=== PATIENT | male | born 1960 | race Caucasian/White ===

== ENCOUNTER 2017-04-27 16:57 | Emergency (ER) | payer OTHER ==
[2017-04-27] MEDS ORDERED: Oxymetazoline 0.05% NASAL SPR* 15 ML BTL BOTH NARES ONE (18:09)
[2017-04-27 18:39] VITALS: BP 165/81
[2017-04-27 19:43] LABS: ABS Basophils 0 10^3/ul (0-0.2); ABS Eosinophils 0.1 10^3/ul (0-0.6); ABS Lymphocytes 1.3 10^3/ul (1.0-4.8); ABS Monocytes 0.8 10^3/ul (0-0.8); ABS Neutrophils 4.2 10^3/ul (1.5-7.7); ABS Nucleated RBC 0 10^3/ul; Eosinophil % 1.4 % (0-6); Hematocrit 36 % (42-52); Hemoglobin 12.4 g/dl (14.0-18.0); Mean Corpuscular HGB Conc 35 g/dl (31-36); Mean Corpuscular Hemoglobin 33 pg (27-31); Mean Corpuscular Volume 94 fL (80-94); Mean Platelet Volume 8 um3 (7.4-10.4); Nucleated Red Blood Cells % 0; Platelet Count 134 10^3/ul (150-450); Red Blood Count 3.81 10^6/ul (4.0-5.4); Red Cell Distribution Width 15 % (10.5-15); White Blood Count 6.5 10^3/ul (3.5-10.8)
[2017-04-27 19:52] LABS: INR 0.94 (0.77-1.02)
[2017-04-27] MEDS ORDERED: Lidocaine 2% JELLY* 6 ML JELLY TOPICAL ONE (19:57)
[2017-04-27] MEDS ORDERED: Lidocaine 2% JELLY* 10 ML JELLY TOPICAL ONE (19:58)
[2017-04-27 20:00] LABS: EGFR Non-African American 99.6 (>60)
[2017-04-27] MEDS ORDERED: Amoxicillin PO (*) 875 MG TAB PO ONE (20:13)
--- NOTE | 2017-04-27 20:27 | ED ---
Throat Pain/Nasal Congestion - HPI Summary HPI Summary: Pt here w/ nose bleed last night. "Bed looked like I lost a gallon of blood". Tried pinching his nose but continued to bleed. Was able to push a tampon up his nose prior to coming in today - still bleeding down back of throat. Denies bleeding d/o or h/o trauma to nose. He does admit he turned his base board heat on last night and he takes daily ibuprofen. Also smokes and has had URI with rhinorrhea - was shoving papertowels up his nose all day yesterday to help with rhinorrhea. No h/o epistaxis and reports no other areas of bleeding or bruising recently. Does admit to HTN and takes HCTZ and metoprolol. BP was 120/80 [facility] earlier today - elevated here he suspects from anxiety, frustration as he just paid $ 145 at [facility] and they did "nothing" and dealing with blood going down his throat, tired from not sleeping well last night. Repeat BP improved here to 160's/80's and he is asx. NOTE: was recently diagnosed with lung tumor which is suspected to be malignant. Due for bx soon. Denies chest john, SOB, hemoptysis. - History of Current Complaint Chief Complaint: EDEpistaxis Time Seen by Provider: 04/27/17 17:15 Hx Obtained From: Patient - Allergies/Home Medications Allergies/Adverse Reactions: Allergies Allergy/AdvReac Type Severity Reaction Status Date / Time lisinopril Allergy Swelling Verified 04/27/17 19:48 Of Face,Lips,& Throat PMH/Surg Hx/FS Hx/Imm Hx Previously Healthy: Yes Endocrine/Hematology History: Denies: Hx Anticoagulant Therapy, Hx Blood Disorders, Hx Diabetes Cardiovascular History: Reports: Hx Hypertension - ON MEDS Denies: Hx Pacemaker/ICD History: Denies: Hx Renal Disease Musculoskeletal History: Reports: Hx Back Problems Sensory History: Denies: Hx Hearing Aid Psychiatric History: Denies: Hx Panic Disorder Infectious Disease History: No Infectious Disease History: Reports: Hx Hepatitis Denies: Traveled Outside the [place] in Last 30 Days - Family History Known Family History: Positive: None - Social History Occupation: Employed Full-time Lives: Alone Alcohol Use: Daily Alcohol Amount: 6 beers a day Hx Substance Use: Yes Substance Use Type: Reports: Marijuana Substance Use Comment - Amount & Last Used: unknown Hx Tobacco Use: Yes Smoking Status (MU): Heavy Every Day Tobacco Smoker Type: Cigarettes Have You Smoked in the Last Year: Yes Review of Systems Constitutional: Negative Positive: Epistaxis. Negative: Sore Throat, Ear Ache Cardiovascular: Negative Negative: Palpitations, Chest Pain Respiratory: Negative Negative: Shortness Of Breath Gastrointestinal: Negative Positive: no symptoms reported Musculoskeletal: Negative Skin: Negative Neurological: Negative Positive: Anxious All Other Systems Reviewed And Are Negative: Yes Physical Exam Triage Information Reviewed: Yes Vital Signs On Initial Exam: Initial Vitals Temp Pulse Resp BP Pulse Ox 98.1 F 62 20 191/89 100 04/27/17 16:59 04/27/17 16:59 04/27/17 16:59 04/27/17 16:59 04/27/17 16:59 Vital Signs Reviewed: Yes Appearance: Positive: Well-Appearing - appars older than stated age, No Pain Distress - frustrated but cooperative, Well-Nourished Skin: Positive: Warm, Skin Color Reflects Adequate Perfusion, Dry Head/Face: Positive: Normal Head/Face Inspection - sinuses NTTP Eyes: Positive: Normal, EOMI - no blood from eyes, Conjunctiva Clear. Negative : Conjunctiva Inflammed, Discharge ENT: Positive: Hearing grossly normal, Nasal drainage - bloody nasal d/c - clot removed when tampon removed - no bleeding initially but then bleeding started, TMs normal - no hemotympanum. Negative: Pharynx normal - blood in posterior pharynx Neck: Positive: Supple, Nontender Respiratory/Lung Sounds: Positive: Clear to Auscultation, Breath Sounds Present. Negative: Stridor Cardiovascular: Positive: Normal, S1, S2 Musculoskeletal: Positive: Normal, Strength/ROM Intact Neurological: Positive: Normal, Sensory/Motor Intact, Alert, Oriented to Person Place, Time, CN Intact II-III Psychiatric: Positive: Normal Procedures - Procedure Summary Procedure Summary: Pt's nasal tampon removed - clot followed but no bleeding. An Afrin swab was placed and upon recheck, pt's nose started bleeding. No vessel is visible for cauterization and no olive area of laceration/abrasion/lesion. Placed lidocaine jelly into pt's nose then posterior rhinorocket. Pt tolerated well and bleeding from anterior and posterior aspects resolved. Pt tolerated well. Diagnostics - Vital Signs Vital Signs Temp Pulse Resp BP Pulse Ox 04/27/17 18:38 165/81 04/27/17 16:59 98.1 F 62 20 191/89 100 - Laboratory Lab Results: Lab Results 04/27/17 04/27/17 04/27/17 Range/Units 19:33 19:33 19:33 WBC 6.5 (3.5-10.8) 10^3/ul RBC 3.81 L (4.0-5.4) 10^6/ul Hgb 12.4 L (14.0-18.0) g/dl Hct 36 L (42-52) % MCV 94 (80-94) fL MCH 33 H (27-31) pg MCHC 35 (31-36) g/dl RDW 15 (10.5-15) % Plt Count 134 L (150-450) 10^3/ul MPV 8 (7.4-10.4) um3 Neut % (Auto) 65.1 (38-83) % Lymph % (Auto) 20.0 L (25-47) % Cobb % (Auto) 12.8 H (1-9) % Eos % (Auto) 1.4 (0-6) % Baso % (Auto) 0.7 (0-2) % Absolute Neuts (auto) 4.2 (1.5-7.7) 10^3/ul Absolute Lymphs (auto) 1.3 (1.0-4.8) 10^3/ul Absolute Monos (auto) 0.8 (0-0.8) 10^3/ul Absolute Eos (auto) 0.1 (0-0.6) 10^3/ul Absolute Basos (auto) 0 (0-0.2) 10^3/ul Absolute Nucleated RBC 0 10^3/ul Nucleated RBC % 0 INR (Anticoag Therapy) 0.94 (0.77-1.02) APTT 32.8 (26.0-36.3) seconds Sodium 131 L (133-145) mmol/L Potassium 3.8 (3.5-5.0) mmol/L Chloride 99 L (101-111) mmol/L Carbon Dioxide 26 (22-32) mmol/L Anion Gap 6 (2-11) mmol/L BUN 16 (6-24) mg/dL Creatinine 0.80 (0.67-1.17) mg/dL Est GFR ( Amer) 128.1 (>60) Est GFR (Non-Af Amer) 99.6 (>60) BUN/Creatinine Ratio 20.0 (8-20) Glucose 104 H (70-100) mg/dL Lactic Acid (0.5-2.0) mmol/L Calcium 10.3 (8.6-10.3) mg/dL Total Bilirubin 0.90 (0.2-1.0) mg/dL AST 53 H (13-39) U/L ALT 31 (7-52) U/L Alkaline Phosphatase 68 (34-104) U/L C-Reactive Protein 1.15 (< 5.00) mg/L Total Protein 8.0 (6.4-8.9) g/dL Albumin 3.7 (3.2-5.2) g/dL Globulin 4.3 H (2-4) g/dL Albumin/Globulin Ratio 0.9 L (1-3) 04/27/17 Range/Units 19:33 WBC (3.5-10.8) 10^3/ul RBC (4.0-5.4) 10^6/ul Hgb (14.0-18.0) g/dl Hct (42-52) % MCV (80-94) fL MCH (27-31) pg MCHC (31-36) g/dl RDW (10.5-15) % Plt Count (150-450) 10^3/ul MPV (7.4-10.4) um3 Neut % (Auto) (38-83) % Lymph % (Auto) (25-47) % Cobb % (Auto) (1-9) % Eos % (Auto) (0-6) % Baso % (Auto) (0-2) % Absolute Neuts (auto) (1.5-7.7) 10^3/ul Absolute Lymphs (auto) (1.0-4.8) 10^3/ul Absolute Monos (auto) (0-0.8) 10^3/ul Absolute Eos (auto) (0-0.6) 10^3/ul Absolute Basos (auto) (0-0.2) 10^3/ul Absolute Nucleated RBC 10^3/ul Nucleated RBC % INR (Anticoag Therapy) (0.77-1.02) APTT (26.0-36.3) seconds Sodium (133-145) mmol/L Potassium (3.5-5.0) mmol/L Chloride (101-111) mmol/L Carbon Dioxide (22-32) mmol/L Anion Gap (2-11) mmol/L BUN (6-24) mg/dL Creatinine (0.67-1.17) mg/dL Est GFR ( Amer) (>60) Est GFR (Non-Af Amer) (>60) BUN/Creatinine Ratio (8-20) Glucose (70-100) mg/dL Lactic Acid 0.7 (0.5-2.0) mmol/L Calcium (8.6-10.3) mg/dL Total Bilirubin (0.2-1.0) mg/dL AST (13-39) U/L ALT (7-52) U/L Alkaline Phosphatase (34-104) U/L C-Reactive Protein (< 5.00) mg/L Total Protein (6.4-8.9) g/dL Albumin (3.2-5.2) g/dL Globulin (2-4) g/dL Albumin/Globulin Ratio (1-3) Result Diagrams: 04/27/17 19:33 04/27/17 19:33 Lab Statement: Any lab studies that have been ordered have been reviewed, and results considered in the medical decision making process. Re-Evaluation - Re-Evaluation First Eval Change: Improved EENT Course/Dx - Course Course Of Treatment: Suspect posterior vessel injury causing epistaxis. Controlled w/ rhinorocket and pt d/c'd w/ anbx. He has norco at home he will take for pain with tamponade placed. Advised to avoid NSAID's until cleared by ENT. He has an appt at ENT at 9am tomorrow. Danger s/sx of when to return to ED reviewed here - pt agrees w/ plan. NOTE: platelets are below normal (134) but not in a place to trigger spontaneous bleeding. - Diagnoses Provider Diagnoses: Right-sided epistaxis Discharge - Discharge Plan Condition: Stable Disposition: HOME Prescriptions: Amoxicillin PO (*) [Amoxicillin 875 MG (*)] 875 mg PO BID #19 tab Patient Education Materials: Nosebleed (ED) Forms: *Work Release Referrals: Carlin Stockton MD [Medical Doctor] - Additional Instructions: You appear to have a posterior nose bleed. This was controlled today with a rhinorocket, a device designed to tamponade/clamp off bleeding vessel(s). If you bloody nose or bleeding down the back of your throat return before follow- up with ENT tomorrow, return to the ED. When you get home, you may take your pain medication for pain however avoid ibuprofen, naproxen, aspirin until nasal bleeding is confirmed to be rectified by ENT. Call in the morning to schedule an appointment for tomorrow. You were also given an antibiotic - complete the course. *If you develop fever, chills, vomiting, headache, weakness, or bleeding from other locations, return to ED
== END 2017-04-27 20:47 | disposition home or self-care (01) ==
LOC: ED 16:57
DX: R04.0 Epistaxis (principal); I10 Essential (primary) hypertension; F17.210 Nicotine dependence, cigarettes, uncomplicated
CPT/HCPCS: 36415; 80053; 83605; 85025; 85610; 85730; 86140; 99282; A9270-GY

== ENCOUNTER 2018-01-04 12:53 | Day surgery (SDC) | payer OTHER ==
[2018-01-04] MEDS ORDERED: Lidocaine 2% PF * 5 ML VIAL ONE (13:00)
[2018-01-04] MEDS ORDERED: fentaNYL* 50 MCG/ML 2 ML VIAL (100 MCG VIAL) ONE (13:00)
[2018-01-04] MEDS ORDERED: Dexamethasone IV* 4 MG/ML 1 ML (4 MG) ONE (13:00)
[2018-01-04] MEDS ORDERED: Ondansetron INJ* 2 MG/ML VIAL ONE (13:00)
[2018-01-04] MEDS ORDERED: Propofol* 10 MG/ML 20 ML BTL IV PUSH ONE (13:00)
[2018-01-04] MEDS ORDERED: Midazolam* 1 MG/ML 5 ML VIAL (5 MG) ONE (13:01)
[2018-01-04] MEDS ORDERED: Cisatracurium* 2 MG/ML MDV 5 ML ONE (13:01)
[2018-01-04] MEDS ORDERED: Buffered Lidocaine 0.9% SYRIN* 5 ML/SYR SYRINGE INTRADERM ONE (13:47)
[2018-01-04] MEDS ORDERED: Famotidine IV* 10 MG/ML 2 ML (20 mg) IV ONE (13:47)
[2018-01-04] MEDS ORDERED: Levalbuterol 0.63MG/3ML NEB* UNIT OF USE INH ONE ×2 (13:47→13:51)
[2018-01-04] MEDS ORDERED: Famotidine IV* 10 MG/ML 2 ML (20 mg) ONE (13:51)
[2018-01-04] MEDS ORDERED: EPHEDrine (Pressors)* 50 MG/ML VIAL ONE (14:33)
[2018-01-04] MEDS ORDERED: oxyCODONE/Acetamin 5/325 MG* TAB PO PRN (15:37)
[2018-01-04] MEDS ORDERED: fentaNYL* 50 MCG/ML 2 ML VIAL (100 MCG VIAL) IV PRN (15:37)
[2018-01-04] MEDS ORDERED: Levalbuterol 0.63MG/3ML NEB* UNIT OF USE INH PRN (15:37)
[2018-01-04] MEDS ORDERED: Ondansetron INJ* 2 MG/ML VIAL IV PRN (15:37)
[2018-01-04] MEDS ORDERED: Naloxone* 0.4 MG/ML 1 ML VIAL IV PRN (15:37)
[2018-01-04 16:57] VITALS: BP 154/79
--- NOTE | 2018-01-05 09:08 | PRO ---
BRONCHOSCOPY REPORT: DATE OF PROCEDURE: 01/04/18 PROCEDURE PERFORMED: Bronchoscopy with endobronchial ultrasound-guided fine needle aspiration of mediastinal and hilar nodes. PREPROCEDURAL DIAGNOSIS: Lung cancer. ANESTHESIA: General anesthesia. ANESTHESIOLOGIST: Dr. Perry. DESCRIPTION OF PROCEDURE: Informed consent was obtained from the patient prior to the procedure after all the risks and benefits were thoroughly explained. A flexible Olympus bronchoscope was inserted through ET tube for airway inspection. Thick white secretions were noted in copious amounts on both sides which were suctioned out. No endobronchial lesions were noted. Bronchoscope was then withdrawn and EBUS bronchoscope was inserted. Station 7 lymph node was accessed with 2 passes. Rapid on-site evaluation revealed lymphatic tissue. No malignant cells were noted. L4 lymph node was minimally enlarged and was accessed with 2 passes. Rapid on-site evaluation revealed lymphatic tissue. No malignant cells were noted. Left hilar nodes were not enlarged. R 4 lymph node was then accessed with 3 passes. Rapid on-site evaluation revealed lymphatic tissue in the third pass. R10 was accessed with 2 passes. Rapid on-site evaluation revealed lymphatic tissue on the second pass. No other lymph nodes were enlarged enough to be sampled. The patient tolerated the procedure well. Bronchoscope was then withdrawn. The patient was extubated and seen in Recovery in optimal condition. [id number]/[facility] #: [id number] [facility]
== END 2018-01-04 16:58 | disposition home or self-care (01) ==
LOC: OR 12:53
PROVIDERS: ATTEND Internal Medicine
DX: C34.11 Malignant neoplasm of upper lobe, right bronchus or lung (principal); Z72.0 Tobacco use; I10 Essential (primary) hypertension; E87.1 Hypo-osmolality and hyponatremia
CPT/HCPCS: 88172; 88173; 88177; 88305; J1100; J2250; J2405; J2704; J3010

== ENCOUNTER 2018-01-20 10:14 | Inpatient (IN) | payer OTHER ==
--- NOTE | 2018-01-18 16:10 | HP ---
AMENDED REPORT NOW INCLUDES COSIGNER DESIGNATION CC: Dr. Gold; Miguel Ángel Jones NP * DATE OF ADMISSION: 01/20/2018. This patient is scheduled for AA admission by Dr. Busby. DATE OF PREOPERATIVE HISTORY AND PHYSICAL EXAMINATION: Thursday, January 18, 2018. ATTENDING SURGEON: Dr. Ceasar Busby * (dictated by Shauna Jacobson NP). CHIEF COMPLAINT: Right lung cancer. HISTORY OF PRESENT ILLNESS: The patient is a 57-year-old male, a current smoker with a history of hypertension. On 12/01/2016, he fell off a rut while climbing and sustained a fractured pelvis and five ribs; he also had left- sided pneumothorax and ruptured spleen. He was airlifted to [facility]. The ruptured spleen was repaired. He had chest tube placement for pneumothorax and was noted to have an abnormality on the CT of his chest at that time. CT scan from 02/21/2017 revealed a 1.7 cm spiculated nodule at the right upper lobe suspicious for neoplasm. He underwent CT guided biopsy in April 2017, positive for moderately differentiated adenocarcinoma. He had a recent PET scan which showed an isolated lesion in the right upper lobe without any evidence of metastatic disease. He has seen Dr. Carter. He saw Dr. Gold and had pulmonary function testing and also had an endobronchial ultrasound which did not reveal any evidence of metastatic disease. The patient has been a smoker for many years; he currently admits to smoking two cigarettes per day. 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 He stays active and feels like he is finally recovered from his major trauma. He reports a mild intermittent cough and denies any hemoptysis. Dr. Busby examined the patient and discussed the above findings with him and reviewed all of his diagnostic testing. Dr. Busby has recommended right lung upper lobectomy and described the nature of the surgical procedure, the relevant risks and benefits, the use of a chest tube, and today I reviewed the typical postoperative hospitalization and recovery. The patient has had a chance to ask questions and stated that he understands the information and is satisfied with the answers given to his questions. He will sign surgical consent on the day of surgery. PAST MEDICAL HISTORY: Hypertension, hepatitis, smoking, alcohol abuse, trauma with fractured pelvis and five ribs, left-sided pneumothorax and ruptured spleen. PAST SURGICAL HISTORY: Repair of splenic laceration, hip arthroscopy and endobronchial ultrasound. MEDICATIONS: 1. Gabapentin 300 mg p.o. t.i.d. 2. Metoprolol ER 100 mg p.o. daily. 3. Triamterene/Hydrochlorothiazide 37.5/25 mg one capsule p.o. daily. ALLERGIES: LISINOPRIL CAUSED SWOLLEN TONGUE. FAMILY HISTORY: Father alive and well at age 90. Mother alive and well at age 89. He has six siblings, all alive and well. No known anesthesia complications , bleeding tendencies, or clotting disorders. SOCIAL HISTORY: He is single. 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 He currently is smoking two cigarettes per day. He drinks a six pack of beer daily. I advised him today to significantly decrease his alcohol intake over the next 48 hours and to avoid alcohol completely if possible. REVIEW OF SYSTEMS: Constitutional: No fevers or chills. He is able to work as a filler blender and denies any excessive fatigue. He states that he lost 10 pounds over the past year. He denies anorexia. Endocrine: No diabetes or known thyroid disease. Hematologic: No easy bruising or bleeding. He is pretty sure that he received blood transfusions at the time of the trauma in November 2016. Respiratory: He is a smoker. He denies any sputum production or hemoptysis. He has a mild intermittent cough. He has a history of pneumothorax, status post trauma and rib fracture. Cardiovascular: No anginal chest pain or palpitations. Gastrointestinal: No nausea, vomiting, diarrhea, GI bleeding, or constipation. Genitourinary: No dysuria. Musculoskeletal: Reports muscle aches, but denies any ambulatory dysfunction. Neurologic: No headache or blurred vision. No areas of focal weakness or numbness. General: No history of anesthesia complications. No history of deep vein thrombosis or pulmonary embolism. PHYSICAL EXAMINATION GENERAL: The patient is a 57-year-old male, well-developed, in no acute distress. VITAL SIGNS: Height 70.5 inches, weight 143 pounds, body mass index 20.2. Blood pressure 144/86, pulse 60 and regular, respiratory rate 18, temperature 98.6. SKIN: Warm, dry, intact. HEENT: Benign. NECK: Supple. No cervical lymphadenopathy. Trachea is midline. BACK: No CVA tenderness. LUNGS: Clear anteriorly; a few scattered rhonchi posteriorly, right greater than left. No wheezing, no use of accessory muscles. HEART: Regular rate and rhythm. No murmurs or rubs appreciated. ABDOMEN: Active bowel sounds. Soft, nondistended, and nontender throughout. The liver is enlarged. EXTREMITIES: Warm without edema or skin ulcerations. GENITALIA: Exam deferred. RECTAL: Exam deferred. NEUROLOGIC: Alert and oriented times three, steady gait. IMPRESSION: Right lung cancer. PLAN: AA admission to Dr. Busby's service on Tuesday, January 20, 2018 for right lung upper lobectomy. JESSICA JACOBSON, KYLE [id number]/[facility] #: [id number] [place]
[~2018-01-20 10:14] MED LIST: DiMENhydriNATE IV* 50 MG/ML VIAL IV PUSH PRN; KETAMINE HCL* 50 MG/ML 10 ML VIAL ONE; Midazolam* 1 MG/ML 10 ML VIAL (10 MG) ONE; Naloxone* 0.4 MG/ML 1 ML VIAL IV PRN; PROCHLORPERAZINE INJ 5 MG/ML 2 ML VIAL IV PRN; Scopolamine 1.5 mg* PATCH TRANSDERM PRN; fentaNYL* 50 MCG/ML 5 ML VIAL (250 MCG VIAL) ONE
[2018-01-20] MEDS ORDERED: Phenylephrine INJ* 10 MG/ML 1 ML VIAL (10 MG) ONE (10:17)
[2018-01-20] MEDS ORDERED: Succinylcholine* 20 MG/ML 10 ML VIAL ONE (10:17)
[2018-01-20] MEDS ORDERED: EPHEDrine (Pressors)* 50 MG/ML VIAL ONE (10:17)
[2018-01-20] MEDS ORDERED: Lidocaine 2% PF * 5 ML VIAL ONE ×3 (10:17→15:32)
[2018-01-20] MEDS ORDERED: Propofol* 10 MG/ML 20 ML BTL IV PUSH ONE (10:17)
--- OUTSIDE RECORDS SUMMARY | 2018-01-20 10:17 | XMS REPORT | Continuity of Care Document ---
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 PayID: [id number] [place] [address] Onset: 2016 Policy Number: [id number] [employer] Juan J Alcaraz PayID: [id number] [address] [place] [address] Advance Directives Description No Information Available Problems Date Description Provider Status Onset: 10/04/2012 Chronic hepatitis C Rola Feliciano M.D. 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 [employer] Tobacco Use Start: Unknown current cigarette smoker 3-4 rollies daily ETOH Use Consumes 1 six pack of beer per day Recreational Drug Use Sporadically uses Marijuana Enjoy Exercising Enjoys exercising Allergies, Adverse Reactions, Alerts Date Description Reaction Status Severity Comments 07/22/2015 Lisinopril Anaphylaxis, Active angioedema 01/28/2010 NKDA Inactive Medications Medication Date Status Form Strength Qnty SIG Indications Ordering Provider Triamterene/Hydr 09/21 Active Capsules 37.5-25mg 90cap 1 by I10 Miguel Ángel Calhoun ochlorothiazide /2017 s mouth Storm, every day [employer] Viagra 07/11 Active Tablets 100mg 10tab take 1/2 Williewnti R. /2017 s to 1 Storm, tablet by [employer] mouth 30 minutes before intercour se Metoprolol 12/15 Active Tablets 100mg 90tab 1 by Miguel Ángel Calhoun Succinate ER /2016 ER 24HR s mouth Storm, every day [employer] Hydrocodone-Acet 12/21 Active Tablets 7.5-325mg 90tab 1-2 tabs M54.5 Miguel Ángel Calhoun aminophen s by mouth Storm, every 6 [employer] hours as needed pain Gabapentin 10/04 Active Capsules 300mg 90cap Take One M54.10 Williewnti R. /2014 s Capsule Storm, By Mouth [employer] Three Times A Day For Nerve Pain Valium 04/14 Hx Tablets 5mg 2tabs 1 by Williewnti R. /2017 mouth 30 Storm, - minutes [employer] 11/25 prior to PET scan, may repeat after 30 minutes if needed T.E.D. 01/06 Hx Misc Regular, 2Pair low R60.9 Miguel Ángel Calhoun Anti-Embolism Medium compressi Storm, Stockings Knee - on, wear [employer] Length 03/24 daily Trazodone HCL 01/06 Hx Tablets 50mg 30tab take 1 G47.00 Williewnti R. s tablet by Robert, - mouth at [employer] 03/24 bedtime if needed for sleep Atenolol 11/05 Hx Tablets 50mg 45tab 1/2 tab I10 Williewnti R. s by mouth Storm, - every day [employer] 03/24 Crutch 07/29 Hx Misc Pair of M25.561 Sukhi crutches He[place]derks, - for acute MD 03/24 knee injury. sized to fit. Ibuprofen 12/21 Hx Tablets 800mg 60tab Take One M25.552 Williewnti R. s Tablet By Robert, - Mouth [employer] 11/25 Every Hours With Food as Needed For Pain Sulfamethoxazole 09/08 Hx Tablets 800-160mg 20tab 1 by L03.115 Sukhi /Trimethoprim s mouth Heetjameel, - twice a MD 04/22 day for infection T.E.D. 09/08 Hx Misc Medium 2unit wear on L03.115 Shawnti R. Anti-Embolism Compression s right leg Robert, Stockings Knee - daily [employer] Length 01/06 Cephalexin 09/01 Hx Tablets 500mg 30tab 1 by Shawnti R. /2015 s mouth Robert, - three [employer] 09/11 times day for 10 days for infection Hydrochlorothiaz 09/01 Hx Capsules 12.5mg 90cap take one I10 Shawnti R. cathryn s capsule Robert, - by mouth [employer] 11/25 every for blood pressure Atenolol 08/11 Hx Tablets 25mg 30tab Take One I10 Shawnti R. s Tablet By Robert, - Mouth [employer] 11/05 Every For Blood Pressure, Replaces Amlodipin e Amlodipine 07/21 Hx Tablets 5mg 30tab take one I10 Shawnti R. Besylate s tablet by Robert, - mouth [employer] 08/11 every for blood pressure Hydrocodone-Acet 10/04 Hx Tablets 5-325mg 60tab 1 or 2 by M54.5 Williewnti R. aminophen s mouth Robert, - twice a [employer] 12/21 day needed for severe pain Ibuprofen 10/04 Hx Tablets 800mg 90tab take one M54.5 Shawnti R. /2014 s tablet by Robert, - mouth [employer] 07/21 times a day as needed for pain Diclofenac 02/25 Hx Tablets 100mg 30tab Take One 724.5 Shawnti R. Sodium ER /2013 ER 24HR s Tablet By Robert, - Mouth [employer] 07/21 Every For Arthritis Lisinopril-Meridian 01/29 Hx Tablets 20-25mg 90tab Take One I10 Shawnti R. chlorothiazide s Tablet By Robert, - Mouth [employer] 07/21 Every Day For Blood Pressure No Active 01/10 Hx Unknown Medications /2013 - 01/10 Lisinopril-Meridian 01/10 Hx Tablets 10-12.5mg 30tab 1 by 401.9 Miguel Ángel Calhoun chlorothiazide /2013 s mouth Storm, - every day [employer] 01/29 for blood 2014 pressure Bentyl 10/04 Hx Tablets 20mg 30tab take one 789.04 Rola s every 6 MJessika Feliciano, - hours as M.D. 01/10 neeed abdominal cramping Omeprazole 09/29 Hx Capsules 20mg 30cap [address] galen Sahu, - [employer] 01/10 Amoxicillin 09/27 Hx Tablets 500mg 42tab take 1 789.9 s tablet po Luis Alberto, - tid x 14 [employer] Oxycodone HCL 09/27 Hx Tablets 5mg 20twe 1 tab po 789.9 nty q 4- 6 Luis Alberto, - hours prn [employer] 01/10 severe pain Ondansetron Odt 09/26 Hx Tablets 4mg 10tab 1 tablet Dispers s dissolved Luis Alberto, - on tongue [employer] 01/10 tid prn nausea No Active 09/08 Hx Unknown Medications /2012 - 09/08 Doxycycline 09/08 Hx Tablets 100mg 42tab 1 po bid 088.81 Miguel Ángel Calhoun Hyclate /2012 DR aaron for 21 Storm, - days for [employer] 10/08 lyme disease Biaxin 08/04 Hx Tablets 500mg 20tab 1 po bid 461.8 Miguel Ángel Calhoun /2010 s for 10 Storm, - days for [employer] 09/08 sinusitis Immunizations CPT Code Status Date Vaccine Lot # [id number] Refused 07/29/2016 Influenza Virus Vaccine, Quadrivalent, 3 Yr > Quad , Preserv Free Vital Signs Date Vital Result Comment 01/03/2018 2:48pm Weight 145.00 lb Weight 65.772 kg BP Systolic 140 mmHg BP Diastolic 80 mmHg Heart Rate 60 /min Body Temperature 98.8 F Respiratory Rate 16 /min Height 70 inches 5'10" BMI (Body Mass Index) 20.8 kg/m2 O2 % BldC Oximetry 98 % 11/25/2017 11:35am Weight 152.00 lb Weight 68.947 kg BP Systolic 170 mmHg BP Diastolic 80 mmHg Heart Rate 74 /min Body Temperature 97.7 F Respiratory Rate 16 /min O2 % BldC Oximetry 97 % 03/24/2017 2:45pm Weight 154.00 lb Weight 69.854 kg BP Systolic 188 mmHg BP Diastolic 84 mmHg Heart Rate 60 /min Respiratory Rate 18 /min O2 % BldC Oximetry 98 % 01/06/2017 10:12am Weight 159.00 lb Weight 72.122 kg BP Systolic 140 mmHg BP Diastolic 70 mmHg Heart Rate 72 /min Body Temperature 98.2 F O2 % BldC Oximetry 98 % 08/20/2016 3:12pm Weight 151.00 lb Weight 68.494 kg BP Systolic 120 mmHg BP Diastolic 78 mmHg Heart Rate 58 /min Body Temperature 98.0 F Respiratory Rate 14 /min 07/29/2016 2:56pm Weight 152.00 lb Weight 68.947 kg BP Systolic 142 mmHg BP Diastolic 70 mmHg Heart Rate 64 /min Body Temperature 98.8 F Respiratory Rate 18 /min Height 71 inches 5'11" BMI (Body Mass Index) 21.2 kg/m2 04/22/2016 3:45pm Weight 152.00 lb Weight 68.947 kg BP Systolic 160 mmHg BP Diastolic 80 mmHg Heart Rate 62 /min Body Temperature 98.0 F Respiratory Rate 16 /min O2 % BldC Oximetry 97 % 12/22/2015 3:47pm Weight 155.00 lb Weight 70.308 kg BP Systolic 138 mmHg BP Diastolic 78 mmHg Heart Rate 63 /min Body Temperature 99.5 F Respiratory Rate 16 /min O2 % BldC Oximetry 98 % 09/16/2015 3:17pm Weight 157.00 lb Weight 71.215 kg BP Systolic 120 mmHg BP Diastolic 70 mmHg Heart Rate 66 /min 09/09/2015 3:13pm Weight 158.00 lb Weight 71.669 kg BP Systolic 130 mmHg BP Diastolic 80 mmHg Heart Rate 85 /min Body Temperature 98.9 F 09/02/2015 3:09pm Weight 159.00 lb Weight 72.122 kg BP Systolic 152 mmHg BP Diastolic 80 mmHg Heart Rate 64 /min Body Temperature 100.3 F 08/12/2015 3:18pm Weight 153.00 lb Weight 69.401 kg BP Systolic 152 mmHg BP Diastolic 80 mmHg Heart Rate 68 /min 07/22/2015 3:10pm Weight 150.00 lb Weight 68.040 kg BP Systolic 150 mmHg BP Diastolic 81 mmHg Heart Rate 80 /min 10/04/2014 2:09pm Weight 148.00 lb Weight 67.133 kg BP Systolic 136 mmHg BP Diastolic 80 mmHg Heart Rate 80 /min Body Temperature 99.3 F Ibuprofen consistantly all day every day 02/25/2014 3:11pm Weight 150.00 lb Weight 68.040 kg BP Systolic 126 mmHg BP Diastolic 70 mmHg Heart Rate 76 /min 01/29/2014 9:20am Weight 150.00 lb Weight 68.040 kg BP Systolic 140 mmHg BP Diastolic 90 mmHg Heart Rate 76 /min 01/10/2014 4:38pm Weight 155.00 lb Weight 70.308 kg BP Systolic 170 mmHg BP Diastolic 90 mmHg Heart Rate 72 /min 10/04/2012 9:18am Weight 159.00 lb Weight 72.122 kg BP Systolic 100 mmHg BP Diastolic 62 mmHg Heart Rate 76 /min 09/27/2012 11:05am Weight 154.00 lb Weight 69.854 kg BP Systolic 132 mmHg BP Diastolic 88 mmHg Heart Rate 70 /min Body Temperature 98.5 F O2 % BldC Oximetry 98 % 09/08/2012 11:40am Weight 154.00 lb Weight 69.854 kg BP Systolic 126 mmHg BP Diastolic 84 mmHg Heart Rate 82 /min Body Temperature 98.3 F Height 71 inches 5'11" BMI (Body Mass Index) 21.5 kg/m2 O2 % BldC Oximetry 99 % 08/04/2010 2:05pm Weight 159.00 lb Weight 72.122 kg BP Systolic 138 mmHg BP Diastolic 78 mmHg Heart Rate 84 /min 07/28/2010 2:06pm Weight 160.00 lb Weight 72.576 kg BP Systolic 140 mmHg BP Diastolic 92 mmHg Heart Rate 72 /min 01/28/2010 9:35am Weight 159.00 lb Weight 72.122 kg BP Systolic 140 mmHg BP Diastolic 90 mmHg Heart Rate 76 /min Body Temperature 98.3 F Height 70.5 inches 5'10.50" BMI (Body Mass Index) 22.5 kg/m2 Results Test Date Facility Test Result H/L Range Note CBC Auto Diff 12/30/2017 [facility] White Blood 8.6 10^3/uL 3.5-10.8 [phone] Count Red Blood Count 4.17 10^6/uL 4.00-5.40 Hemoglobin 14.4 g/dL 14.0-18.0 Hematocrit 42 % 42-52 Mean Corpuscular Volume 100 fL High 80-94 Mean Corpuscular Hemoglobin 35 pg High 27-31 Mean Corpuscular HGB Conc 35 g/dL 31-36 Red Cell Distribution Width 13 % 10.5-15 Platelet Count 167 10^3/uL 150-450 Mean Platelet Volume 8.6 um3 7.4-10.4 Abs Neutrophils 5.9 10^3/uL 1.5-7.7 Abs Lymphocytes 1.4 10^3/uL 1.0-4.8 Abs Monocytes 1.1 10^3/uL High 0-0.8 Abs Eosinophils 0.1 10^3/uL 0-0.6 Abs Basophils 0.1 10^3/uL 0-0.2 Abs Nucleated RBC 0 10^3/uL Granulocyte % 68.6 % 38-83 Lymphocyte % 16.2 % Low 25-47 Monocyte % 12.8 % High 0-7 Eosinophil % 1.4 % 0-6 Basophil % 1.0 % 0-2 Nucleated Red Blood Cells % 0.1 Comp Metabolic 12/30/2017 [facility] Sodium 127 mmol/ L Low 135-145 Panel [phone] Potassium 4.4 mmol/L 3.5-5.0 Chloride 94 mmol/L Low 101-111 Co2 Carbon Dioxide 28 mmol/L 22-32 Anion Gap 5 mmol/L 2-11 Glucose 98 mg/dL 70-100 Blood Urea Nitrogen 10 mg/dL 6-24 Creatinine 0.97 mg/dL 0.67-1.17 BUN/Creatinine Ratio 10.3 8-20 Calcium 9.8 mg/dL 8.6-10.3 Total Protein 8.4 g/dL 6.4-8.9 Albumin 3.8 g/dL 3.2-5.2 Globulin 4.6 g/dL High 2-4 Albumin/Globulin Ratio 0.8 Low 1-3 Total Bilirubin 0.80 mg/dL 0.2-1.0 Alkaline Phosphatase 85 U/L 34-104 Alt 26 U/L 7-52 Ast 77 U/L High 13-39 Egfr Non- 79.8 >60 Egfr 96.5 >60 1 Laboratory test 12/22/2017 [facility] Point of Care 99 mg/dL 70-100 2 finding [phone] Glucose Laboratory test 05/02/2017 [facility] Partial 31.7 seconds 26.0-36.3 finding [phone] Thrombo Time PTT Inr/Protime 05/02/2017 [facility] Inr 0.94 0.77- 1.02 [phone] Platelet Count 05/02/2017 [facility] Platelet 161 10^ 3/uL 150-450 [phone] Count Mean Platelet Volume 8 um3 7.4-10.4 CBC Auto Diff 04/27/2017 [facility] White Blood 6.5 10^3/uL 3.5-10.8 [phone] Count Red Blood Count 3.81 10^6/uL Low 4.0-5.4 Hemoglobin 12.4 g/dL Low 14.0-18.0 Hematocrit 36 % Low 42-52 Mean Corpuscular Volume 94 fL 80-94 Mean Corpuscular Hemoglobin 33 pg High 27-31 Mean Corpuscular HGB Conc 35 g/dL 31-36 Red Cell Distribution Width 15 % 10.5-15 Platelet Count 134 10^3/uL Low 150-450 Mean Platelet Volume 8 um3 7.4-10.4 Abs Neutrophils 4.2 10^3/uL 1.5-7.7 Abs Lymphocytes 1.3 10^3/uL 1.0-4.8 Abs Monocytes 0.8 10^3/uL 0-0.8 Abs Eosinophils 0.1 10^3/uL 0-0.6 Abs Basophils 0 10^3/uL 0-0.2 Abs Nucleated RBC 0 10^3/uL Granulocyte % 65.1 % 38-83 Lymphocyte % 20.0 % Low 25-47 Monocyte % 12.8 % High 1-9 Eosinophil % 1.4 % 0-6 Basophil % 0.7 % 0-2 Nucleated Red Blood Cells % 0 Laboratory test 04/27/2017 [facility] Lactic Acid 0.7 mmol/L 0.5-2.0 3 finding [phone] Comp Metabolic 04/27/2017 [facility] Sodium 131 mmol/ L Low 133-145 Panel [phone] Potassium 3.8 mmol/L 3.5-5.0 Chloride 99 mmol/L Low 101-111 Co2 Carbon Dioxide 26 mmol/L 22-32 Anion Gap 6 mmol/L 2-11 Glucose 104 mg/dL High 70-100 Blood Urea Nitrogen 16 mg/dL 6-24 Creatinine 0.80 mg/dL 0.67-1.17 BUN/Creatinine Ratio 20.0 8-20 Calcium 10.3 mg/dL 8.6-10.3 Total Protein 8.0 g/dL 6.4-8.9 Albumin 3.7 g/dL 3.2-5.2 Globulin 4.3 g/dL High 2-4 Albumin/Globulin Ratio 0.9 Low 1-3 Total Bilirubin 0.90 mg/dL 0.2-1.0 Alkaline Phosphatase 68 U/L 34-104 Alt 31 U/L 7-52 Ast 53 U/L High 13-39 Egfr Non- 99.6 >60 Egfr 128.1 >60 4 Laboratory test 04/27/2017 [facility] C Reactive 1.15 mg/L < 5.00 5 finding [phone] Protein Inr/Protime 04/27/2017 [facility] Inr 0.94 0.77- 1.0 [phone] 2 Laboratory test 04/27/2017 [facility] Partial 32.8 seconds 26.0-36. finding [phone] Thrombo Time 3 PTT Laboratory test 04/20/2017 [facility] Point of Care 119 mg/dL High 70-100 6 finding [phone] Glucose CBC Auto Diff 03/01/2017 [facility] White Blood 7.7 10^3/uL 3.5-10.8 [phone] Count Red Blood Count 4.25 10^6/uL 4.0-5.4 Hemoglobin 13.4 g/dL Low 14.0-18.0 Hematocrit 39 % Low 42-52 Mean Corpuscular Volume 92 fL 80-94 Mean Corpuscular Hemoglobin 32 pg High 27-31 Mean Corpuscular HGB Conc 34 g/dL 31-36 Red Cell Distribution Width 15 % 10.5-15 Platelet Count 136 10^3/uL Low 150-450 Mean Platelet Volume 9 um3 7.4-10.4 Abs Neutrophils 5.3 10^3/uL 1.5-7.7 Abs Lymphocytes 1.3 10^3/uL 1.0-4.8 Abs Monocytes 0.9 10^3/uL High 0-0.8 Abs Eosinophils 0.1 10^3/uL 0-0.6 Abs Basophils 0.1 10^3/uL 0-0.2 Abs Nucleated RBC 0 10^3/uL Granulocyte % 68.9 % 38-83 Lymphocyte % 17.2 % Low 25-47 Monocyte % 11.2 % High 1-9 Eosinophil % 1.7 % 0-6 Basophil % 1.0 % 0-2 Nucleated Red Blood Cells % 0.1 Comp Metabolic 03/01/2017 [facility] Sodium 132 mmol/ L Low 133-145 Panel [phone] Potassium 4.4 mmol/L 3.5-5.0 Chloride 100 mmol/L Low 101-111 Co2 Carbon Dioxide 29 mmol/L 22-32 Anion Gap 3 mmol/L 2-11 Glucose 88 mg/dL 70-100 Blood Urea Nitrogen 13 mg/dL 6-24 Creatinine 0.91 mg/dL 0.67-1.17 BUN/Creatinine Ratio 14.3 8-20 Calcium 9.9 mg/dL 8.6-10.3 Total Protein 8.2 g/dL 6.4-8.9 Albumin 3.7 g/dL 3.2-5.2 Globulin 4.5 g/dL High 2-4 Albumin/Globulin Ratio 0.8 Low 1-3 Total Bilirubin 0.60 mg/dL 0.2-1.0 Alkaline Phosphatase 95 U/L 34-104 Alt 33 U/L 7-52 Ast 65 U/L High 13-39 Egfr Non- 85.9 >60 Egfr 110.4 >60 7 Laboratory test 03/01/2017 [facility] Afp Tumor Marker 3.9 ng/mL <6.0 8 finding [phone] Drug Abuse 20 08/20/2016 [facility] Urine Negative 9 Urine [phone] Amphetamine ng/mL Urine Barbiturates Negative ng/mL 10 Urine Benzodiazepines Negative ng/mL 11 Urine Cocaine Negative ng/mL 12 Urine Phencyclidine Negative ng/mL Cutoff: 25 Urine Tetrahydrocannabinol Presumptive Posi <SEE NOTE> ng/mL Cutoff: 50 13 Creatinine, Urine 65.2 mg/dL Specific [place] 1.009 pH 7.1 Oxidants Negative 14 Adulterants Comment Normal Codeine, Ur Not Detected ng/mL Cutoff: 25 15 Awysnyu-7-spoh-glucuronide, Ur Not Detected ng/mL 16 Morphine, Ur Not Detected ng/mL Cutoff: 25 17 Zccyxapw-1-xlwh-glucuronide, U Not Detected ng/mL 18 6-monoacetylmorphine, Ur See Comment ng/mL Cutoff: 25 19 Hydrocodone, Ur Present ng/mL Cutoff: 25 20 Norhydrocodone, Ur Present ng/mL Cutoff: 25 21 Dihydrocodeine, Ur Present ng/mL Cutoff: 25 22 Hydromorphone, Ur Not Detected ng/mL Cutoff: 25 23 Edfgncrszxrpp7dkiaqxdintjbkrf Present ng/mL 24 Oxycodone, Ur Present ng/mL Cutoff: 25 25 Noroxycodone, Ur Present ng/mL Cutoff: 25 26 Oxymorphone, Ur Not Detected ng/mL Cutoff: 25 27 Ffgmtxwgymd-5-tbwh-glucuronide Present ng/mL 28 Noroxymorphone, Ur Present ng/mL Cutoff: 25 29 Fentanyl, Ur Not Detected ng/mL Cutoff: 2 30 Norfentanyl, Ur Not Detected ng/mL Cutoff: 2 31 Meperidine, Ur Not Detected ng/mL Cutoff: 25 32 Normeperidine, Ur Not Detected ng/mL Cutoff: 25 33 Naloxone, Ur Not Detected ng/mL Cutoff: 25 34 Nzaskmkg-5-ybvr-glucuronide, U Not Detected ng/mL 35 Methadone, Ur Not Detected ng/mL Cutoff: 25 36 Eddp, Ur Not Detected ng/mL Cutoff: 25 37 Propoxyphene, Ur Not Detected ng/mL Cutoff: 25 38 Norpropoxyphene, Ur Not Detected ng/mL Cutoff: 25 39 Tramadol, Ur Not Detected ng/mL Cutoff: 25 40 O-desmethyltramadol, Ur Not Detected ng/mL Cutoff: 25 41 Tapentadol, Ur Not Detected ng/mL Cutoff: 25 42 N-desmethyltapentadol, Ur Not Detected ng/mL Cutoff: 50 43 Rvmkirtgsj-nlhz-bdzgcwddrjm, U Not Detected ng/mL 44 Buprenorphine, Ur Not Detected ng/mL Cutoff: 5 45 Norbuprenorphine, Ur Not Detected ng/mL Cutoff: 5 46 Norbuprenorphine glucuronide Not Detected ng/mL Cutoff: 20 47 Opioid Interpretation See Comment 48 THC Confirmation 08/20/2016 [facility] Urine Carboxy 251 ng/mL 49 Urine [phone] THC Confirm Urine THC Interpretation Positive. 50 Laboratory test 07/18/2015 [facility] Osmolality 167 mOsm/kg 150-1150 finding [phone] Urine Urinalysis 07/18/2015 [facility] Urine Color Yellow Profile [phone] Urine Appearance Clear Urine Specific [place] 1.005 Low 1.010-1.030 Urine pH 6.0 5-9 Urine Urobilinogen Negative Negative Urine Ketones Negative Negative Urine Protein Negative Negative Urine Leukocytes Negative Negative Urine Blood Negative Negative Urine Nitrite Negative Negative Urine Bilirubin Negative Negative Urine Glucose Negative Negative Laboratory test 07/18/2015 [facility] Sodium Random 15 mmol/L finding [phone] Urine Basic Metabolic 01/29/2014 [facility] Sodium 134 mmol /L 133-145 Panel [phone] Potassium 4.2 mmol/L 3.5-5.0 51 Chloride 103 mmol/L 101-111 Co2 Carbon Dioxide 23 mmol/L 22-32 Anion Gap 8 mmol/L 2-11 Glucose 104 mg/dL High 70-100 Blood Urea Nitrogen 6 mg/dL 6-24 Creatinine 0.80 mg/dL 0.67-1.17 BUN/Creatinine Ratio 7.5 Low 8-20 Calcium 9.4 mg/dL 8.6-10.3 Egfr Non- 101.1 >60 Egfr 130.0 >60 52 Comp Metabolic Panel 01/10/2014 [facility] Sodium 134 mmol/L 133-145 [phone] Potassium 4.0 mmol/L 3.5-5.0 53 Chloride 104 mmol/L 101-111 Co2 Carbon Dioxide 26 mmol/L 22-32 Anion Gap 4 mmol/L 2-11 Glucose 91 mg/dL 70-100 Blood Urea Nitrogen 10 mg/dL 6-24 Creatinine 0.82 mg/dL 0.67-1.17 BUN/Creatinine Ratio 12.2 8-20 Calcium 9.4 mg/dL 8.6-10.3 Total Protein 8.2 g/dL 6.4-8.9 Albumin 3.8 g/dL 3.2-5.2 Globulin 4.4 g/dL High 2-4 Albumin/Globulin Ratio 0.9 Low 1-3 Total Bilirubin 0.70 mg/dL 0.2-1.0 Alkaline Phosphatase 84 U/L 34-104 Alt 42 U/L 7-52 Ast 68 U/L High 13-39 Egfr Non- 98.3 >60 Egfr 126.4 >60 54 Laboratory test 01/10/2014 [facility] TSH (Thyroid 2.95 0.34-5.60 finding [phone] Stimulating Horm) IU/mL Lipid Profile 01/10/2014 [facility] Triglycerides 115 mg/dL 55 (Trig/Chol/HDL) [phone] Cholesterol 110 mg/dL 56 HDL Cholesterol 26.0 mg/dL 57 LDL Cholesterol 61 mg/dL 58 CBC No Diff 01/10/2014 [facility] White Blood 5.7 10^ 3/uL 4.8-10.8 [phone] Count Red Blood Count 4.46 10^6/uL 4.0-5.4 Hemoglobin 14.4 g/dL 14.0-18.0 Hematocrit 42 % 42-52 Mean Corpuscular Volume 94 fL 80-94 Mean Corpuscular Hemoglobin 32 pg High 27-31 Mean Corpuscular HGB Conc 34 g/dL 31-36 Red Cell Distribution Width 14 % 10.5-15 Platelet Count 73 10^3/uL Low 150-450 Mean Platelet Volume 11 um3 High 7.4-10.4 Laboratory 09/30/2012 [facility] Hepatitis C Rna [id number] Undetected 59 test finding [phone] Quantitative IU/mL Lyme Western 09/27/2012 [facility] Lyme Disease Negative Negative Blot [phone] IgG Ab WB Lyme Disease IgG Bands Present p41, kDa Lyme Disease IgM Ab WB Positive Negative Lyme Disease IgM Bands Present p41, p39, kDa Lyme Disease Interpretation See Comment 60 Laboratory test 09/27/2012 [facility] Lyme Disease Positive Negative 61 finding [phone] Serology Pathologist Review (SEE NOTE) 62 Hepatitis 09/27/2012 [facility] Hepatitis B Nonreactive Nonreactive Acute Panel [phone] Surface Antigen Hepatitis B Core IgM Nonreactive Nonreactive Hepatitis A AB IgM Nonreactive Nonreactive Hepatitis C Antibody High Reactive Nonreactive 63 Laboratory test 09/27/2012 [facility] Lipase 94 U/L High 22-51 finding [phone] Amylase 96 U/L 20-120 Liver Function 09/27/2012 [facility] Total Protein 7.7 g/dL 6.2-8.1 Panel [phone] Albumin 3.2 g/dL Low 3.6-5.4 Globulin 4.5 g/dL High 2-4 Albumin/Globulin Ratio 0.7 Low 1-3 Total Bilirubin 1.9 mg/dL High 0.4-1.5 Direct Bilirubin 0.5 mg/dL 0.1-0.5 Indirect Bilirubin 1.4 mg/dL High 0.3-1.0 Alkaline Phosphatase 84 U/L 30-110 Alt 53 U/L 14-54 Ast 77 U/L High 12-42 CBC Auto Diff 09/27/2012 [facility] White Blood 8.9 10^3/uL 4.8-10.8 [phone] Count Red Blood Count 4.48 10^6/uL 4.0-5.4 Hemoglobin 15.2 g/dL 14.0-18.0 Hematocrit 45 % 42-52 Mean Corpuscular Volume 99 fL High 80-94 Mean Corpuscular Hemoglobin 34 pg High 27-31 Mean Corpuscular HGB Conc 34 g/dL 31-36 Red Cell Distribution Width 14 % 10.5-15 Platelet Count 83 10^3/uL Low 150-450 Mean Platelet Volume 11 um3 High 7.4-10.4 Abs Neutrophils 5.8 10^3/uL 1.5-7.7 Abs Lymphocytes 2.0 10^3/uL 1.0-4.8 Abs Monocytes 0.9 10^3/uL High 0-0.8 Abs Eosinophils 0.1 10^3/uL 0-0.6 Abs Basophils 0.1 10^3/uL 0-0.2 Abs Nucleated RBC 0.02 10^3/uL Granulocyte % 65.7 % 38-83 Lymphocyte % 22.2 % Low 25-47 Monocyte % 10.4 % High 1-9 Eosinophil % 1.0 % 0-6 Basophil % 0.7 % 0-2 Nucleated Red Blood Cells % 0.2 Basic Metabolic 09/27/2012 [facility] Sodium 135 mmol /L 133-145 Panel [phone] Potassium 4.2 mmol/L 3.5-5.0 Chloride 101 mmol/L 101-111 Co2 Carbon Dioxide 29.0 mmol/L 22-32 Anion Gap 5.0 mmol/L 2-11 Glucose 92 mg/dL 70-100 Blood Urea Nitrogen 7 mg/dL 6-24 Creatinine 0.90 mg/dL 0.50-1.40 BUN/Creatinine Ratio 7.8 Low 8-20 Calcium 9.5 mg/dL 8.1-9.9 Egfr Non- 88.6 >60 Egfr 114.0 >60 64 Manual Differential 07/28/2010 [facility] Polysegmented 77 % 38-83 [phone] Neutrophil Lymphocyte 10 % Low 25-47 Monocyte 8 % 0-13 Eosinophil 3 % 0-6 Basophil 1 % 0-2 Atypical Lymph 1 % 0-6 Absolute Neutrophil Count 6.8 RBC Morphology NORMAL Lipid Profile 07/28/2010 [facility] Triglyceride 161 mg/dL 40-200 (Trig/Chol/HDL) [phone] Cholesterol 130 mg/dL Less Than 200 65 High Density Lipoprotein 29 mg/dL Low 40-60 66 Cholesterol/HDL Ratio 4.48 AVERAGE 1-4.97 Low Density Lipoprotein 69 mg/dL Less Than 100 67 Laboratory test 07/28/2010 [facility] TSH 2.75 MIU/ ML 0.34-5.60 finding [phone] Vitamin B12 504 pg/mL 180-914 Comp Metabolic Panel 07/28/2010 [facility] Sodium 137 mmol/L 135-145 [phone] Potassium 3.8 mmol/L 3.5-5.0 Chloride 103 mmol/L 101-111 Co2 (Carbon Dioxide) 26.0 mmol/L 22-32 Anion Gap 8.0 mmol/L 2-11 68 Glucose 98 mg/dL 70-100 BUN 9 mg/dL 6-24 Creatinine 0.90 mg/dL 0.50-1.40 One Over Creatinine 1.10 BUN/Creatinine Ratio 10.0 8-20 Calcium 9.3 mg/dL 8.1-9.9 Total Protein 7.8 GM/DL 6.2-8.1 Albumin 3.7 GM/DL 3.6-5.4 Globulin 4.1 GM/DL High 2-4 Albumin/Globulin Ratio 0.9 Low 1-3 Bilirubin Total 1.1 mg/dL 0.4-1.5 69 Alkaline Phosphatase 86 U/L 39-117 Alt (SGPT) 145 U/L High 17-63 Ast (Sgot) 179 U/L High 12-42 eGFR Non- 89.3 > 60 eGFR 114.9 > 60 70 CBC Auto Diff 07/28/2010 [facility] White Blood 8.9 CUMM 4.8-10.8 [phone] Count Red Cell Count 4.73 CUMM 4.6-6.2 Hemoglobin 15.7 g/dL 14.0-18.0 Hematocrit 46 % 42-52 Mean Corpuscular Volume 97 um3 High 80-94 Mean Corpuscular Hemoglob 33 pg High 27-31 Mean Corpuscular HGB Cone 34 g/dL 32-36 Redcell Distribution WDTH 14 % 10.5-15 Platelet Count 88 CUMM Low 150-450 Mean Platelet Volume 10.2 um3 7.4-10.4 71 1 Because ethnic data is not always readily available, this report includes an eGFR for both -Americans and non- Americans. The National Kidney Disease Education Program (NKDEP) does not endorse the use of the MDRD equation for patients that are not between the ages of 18 and 70, are , have extremes of body size, muscle mass, or nutritional status, or are non- or non-. According to the National Kidney Foundation, irrespective of diagnosis, the stage of the disease is based on the level of kidney function: Stage Description GFR(mL/min/1.73 m(2)) 1 Kidney damage with normal or decreased GFR 90 2 Kidney damage with mild decrease in GFR 60-89 3 Moderate decrease in GFR 30-59 4 Severe decrease in GFR 15-29 5 Kidney failure <15 (or dialysis) 2 Store Lead: [id number] 3 [facility] Severe Sepsis and Septic Shock Management Bundle Measure requires all lactic acids initially measuring >2.0 mmol/L be repeated. 4 Because ethnic data is not always readily available, this report includes an eGFR for both -Americans and non- Americans. The National Kidney Disease Education Program (NKDEP) does not endorse the use of the MDRD equation for patients that are not between the ages of 18 and 70, are , have extremes of body size, muscle mass, or nutritional status, or are non- or non-. According to the National Kidney Foundation, irrespective of diagnosis, the stage of the disease is based on the level of kidney function: Stage Description GFR(mL/min/1.73 m(2)) 1 Kidney damage with normal or decreased GFR 90 2 Kidney damage with mild decrease in GFR 60-89 3 Moderate decrease in GFR 30-59 4 Severe decrease in GFR 15-29 5 Kidney failure <15 (or dialysis) 5 Acute inflammation: >10.00 6 Store Lead: [id number] 7 Because ethnic data is not always readily available, this report includes an eGFR for both -Americans and non- Americans. The National Kidney Disease Education Program (NKDEP) does not endorse the use of the MDRD equation for patients that are not between the ages of 18 and 70, are , have extremes of body size, muscle mass, or nutritional status, or are non- or non-. According to the National Kidney Foundation, irrespective of diagnosis, the stage of the disease is based on the level of kidney function: Stage Description GFR(mL/min/1.73 m(2)) 1 Kidney damage with normal or decreased GFR 90 2 Kidney damage with mild decrease in GFR 60-89 3 Moderate decrease in GFR 30-59 4 Severe decrease in GFR 15-29 5 Kidney failure <15 (or dialysis) 8 ADDITIONAL INFORMATION The testing method is an immunoenzymatic assay manufactured by [employer] and performed on the Anomo DxI 800. Values obtained with different assay methods or kits may be different and cannot be used interchangeably. Test results cannot be interpreted as absolute evidence for the presence or absence of malignant disease. Alpha-Fetoprotein values are not interpretable in females for the investigation of malignant disease. Test Performed by: [facility] [place] [address] [place] [address] 9 REFERENCE VALUE Cutoff: 500 10 REFERENCE VALUE Cutoff: 200 11 REFERENCE VALUE Cutoff: 100 12 REFERENCE VALUE Cutoff: 150 13 Presumptive Positive Drug confirmation to follow. Presumptive Positive means that the screening method is positive, but the test needs to be run by a confirmatory method before being finalized. ADDITIONAL INFORMATION This report is intended for use in clinical monitoring or management of patients. It is not intended for use in employment-related testing. 14 REFERENCE VALUE Cutoff: 200 mg/L 15 Tylenol 3 16 Metabolite of codeine REFERENCE VALUE Cutoff: 100 17 Viri Abarca, MS Contin; Also a minor metabolite (10%) of codeine and can be seen in low concentrations (<2,000 ng/mL) with poppy seed ingestion. 18 Metabolite of morphine REFERENCE VALUE Cutoff: 100 19 RESULT: Results not available due to analyte specific failure. 20 Lortab, [place], Vicodin; Also a very minor metabolite of codeine and impurity (<1%) of oxycodone. 21 Metabolite of hydrocodone 22 Metabolite of hydrocodone 23 Dilaudid, Exalgo; Also a metabolite of hydrocodone and a minor (<5%) metabolite of morphine. 24 Metabolite of hydromorphone REFERENCE VALUE Cutoff: 100 25 Endocet, Percocet, Oxycontin 26 Metabolite of oxycodone 27 Numorphan, Opana; Also a metabolite of oxycodone. 28 Metabolite of oxymorphone REFERENCE VALUE Cutoff: 100 29 Metabolite of oxymorphone 30 Actiq, Duragesic, [place]ent[place] 31 Metabolite of fentanyl 32 Demerol 33 Metabolite of meperidine 34 Narcan 35 Metabolite of naloxone REFERENCE VALUE Cutoff: 100 36 Dolophine 37 Metabolite of methadone 38 Darvon, Darvocet 39 Metabolite of propoxyphene 40 Tradol, Ultram, Ultracet 41 Metabolite of tramadol 42 Nucynta 43 Metabolite of tapentadol 44 Metabolite of tapentadol REFERENCE VALUE Cutoff: 100 45 Buprenex, Suboxone 46 Metabolite of buprenorphine 47 Metabolite of buprenorphine 48 Test detected the presence of hydrocodone, two of its metabolites (norhydrocodone and dihydrocodeine), and qduwlxavckcuz-2-aogs-glucuronide (metabolite of hydromorphone). Suspect use of hydrocodone or hydrocodone and hydromorphone within the past three days. Trace amounts of hydrocodone can also be found as an impurity in hydromorphone. Test detected the presence of oxycodone and several metabolites (noroxycodone, noroxymorphone, and swxcmuwrhpk-7-pgxq-glucuronide). Suspect use of oxycodone or possibly oxycodone and oxymorphone within the past three days. ADDITIONAL INFORMATION This test was developed and its performance characteristics determined by [facility] in a manner consistent with CLIA requirements. This test has not been cleared or approved by the U.S. Food and Drug Administration. Test Performed by: [facility] - [address] [address] 49 REFERENCE VALUE Cutoff: 3.0 50 ADDITIONAL INFORMATION This report is intended for use in clinical monitoring and management of patients. It is not intended for use in employment-related testing. This test was developed and its performance characteristics determined by [facility] in a manner consistent with CLIA requirements. This test has not been cleared or approved by the U.S. Food and Drug Administration. Test Performed by: [facility] - [address] [address] 51 Potassium reference range changed effective 01/06/14 52 Because ethnic data is not always readily available, this report includes an eGFR for both -Americans and non- Americans. The National Kidney Disease Education Program (NKDEP) does not endorse the use of the MDRD equation for patients that are not between the ages of 18 and 70, are , have extremes of body size, muscle mass, or nutritional status, or are non- or non-. According to the National Kidney Foundation, irrespective of diagnosis, the stage of the disease is based on the level of kidney function: Stage Description GFR(mL/min/1.73 m(2)) 1 Kidney damage with normal or decreased GFR 90 2 Kidney damage with mild decrease in GFR 60-89 3 Moderate decrease in GFR 30-59 4 Severe decrease in GFR 15-29 5 Kidney failure <15 (or dialysis) 53 Potassium reference range changed effective 01/06/14 54 Because ethnic data is not always readily available, this report includes an eGFR for both -Americans and non- Americans. The National Kidney Disease Education Program (NKDEP) does not endorse the use of the MDRD equation for patients that are not between the ages of 18 and 70, are , have extremes of body size, muscle mass, or nutritional status, or are non- or non-. According to the National Kidney Foundation, irrespective of diagnosis, the stage of the disease is based on the level of kidney function: Stage Description GFR(mL/min/1.73 m(2)) 1 Kidney damage with normal or decreased GFR 90 2 Kidney damage with mild decrease in GFR 60-89 3 Moderate decrease in GFR 30-59 4 Severe decrease in GFR 15-29 5 Kidney failure <15 (or dialysis) 55 Desirable <150 Borderline high 150-199 High 200-499 Very High >500 56 Desirable <200 Borderline high 200-239 High >239 57 Low <40 Desirable: 40-60 High: >60 58 Desirable <100 Near Optimal 100-129 Borderline high 130-159 High 160-189 Very High >189 59 Result in log IU/mL is 6.39. The quantification range of this assay is 43 IU/mL to 69,000,000 IU/mL (1.63 log IU/mL to 7.84 log IU/mL). Testing was performed by the [employer] AmpliPrep/TATUM TaqMan HCV Test ([employer] Test Performed by: [address] [address] Applied Behavior Specialist: Joseph Davis III, M.D. 60 Consistent with early infection with Borrelia burgdorferi. A new serum specimen should be submitted in 14-21 days to demonstrate seroconversion of IgG. IgM blot criteria is of diagnostic utility only during the first 4 weeks of early Lyme disease. CDC criteria require >=5 bands for IgG or >=2 bands for IgM for the Immunoblot to be considered positive. Bands (e.g.,p41) may be detected in patients without Lyme disease, and patterns not meeting the CDC criteria should be interpreted with caution. Immunoblot should be ordered only on specimens that are positive or equivocal by a FDA-licensed Lyme disease antibody screening test (e.g., EIA). Test Performed by: [place] [address] Applied Behavior Specialist: Joseph Davis III, M.D. 61 Not diagnostic. Supplemental testing ordered by reflex. Test Performed by: [place] [address] Applied Behavior Specialist: Joseph Davis III, M.D. 62 CBC and smear reviewed. Thrombocytopenia present without evidence of platelet clumping or satellitosis. Reviewed by Agata Trevino MD 63 High reactive sample are considered positive for Hepatitis C 64 Because ethnic data is not always readily available, this report includes an eGFR for both -Americans and non- Americans. The National Kidney Disease Education Program (NKDEP) does not endorse the use of the MDRD equation for patients that are not between the ages of 18 and 70, are , have extremes of body size, muscle mass, or nutritional status, or are non- or non-. According to the National Kidney Foundation, irrespective of diagnosis, the stage of the disease is based on the level of kidney function: Stage Description GFR(mL/min/1.73 m(2)) 1 Kidney damage with normal or decreased GFR 90 2 Kidney damage with mild decrease in GFR 60-89 3 Moderate decrease in GFR 30-59 4 Severe decrease in GFR 15-29 5 Kidney failure <15 (or dialysis) 65 CHOLESTEROL INTERPRETATION: Desirable: Less than 200 MG/DL Borderline-High Risk: 200-239 MG/DL High-Risk: 240 MG/DL and over 66 HDL INTERPRETATION: Undesirable: High Risk: Less than 40 MG/DL Desirable: Low Risk: Greater than 60 MG/DL 67 LDL INTERPRETATION: Low Risk Optimal Level: LDL Less than 100 MG/DL Near or Above Optimal: LDL 100-129 MG/DL Borderline High Risk: LDL 130-159 MG/DL High Risk: LDL 160-189 MG/DL Very High Risk: LDL Greater than 189 MG/DL 68 Anion gap measurement may be of limited value in the presence of any alkalosis, especially in a combined acid base disorder. . 69 A metabolite of Naproxen, O-desmethylnaproxen, has been shown to interfere with the Jendrassik-Ashlyn method for measuring total bilirubin. Samples from patients who have taken Naproxen have shown spurious elevation in total bilirubin levels. 70 Because ethnic data is not always readily available, this report includes an eGFR for both -Americans and non- Americans. The National Kidney Disease Education Program (NKDEP) does not endorse the use of the MDRD equation for patients that are not between the ages of 18 and 70, are , have extremes of body size, muscle mass, or nutritional status, or are non- or non-. According to the National Kidney Foundation, irrespective of diagnosis, the stage of the disease is based on the level of kidney function: Stage Description GFR(mL/min/1.73 m(2)) 1 Kidney damage with normal or decreased GFR 90 2 Kidney damage with mild decrease in GFR 60-89 3 Moderate decrease in GFR 30-59 4 Severe decrease in GFR 15-29 5 Kidney failure <15 (or dialysis) 71 Lymphopenia % Thrombocytopenia Procedures Date Code Description Status 01/10/2014 38061 EKG, at Least 12 Leads w/Interpretation and Report Completed 07/28/2010 51695 EKG, at Least 12 Leads w/Interpretation and Report Completed 07/28/2010 75908 EKG, at Least 12 Leads w/Interpretation and Report Completed Encounters Type Date Location Provider Dx Diagnosis Office Visit 11/25/2017 Main Office Miguel Ángel Jones C34.90 Malignant neoplasm 11:30a [employer] COMPUT[employer] CONSULTANT-C of unsp part of unsp bronchus or lung I10 Essential (primary) hypertension M54.5 Low back pain Office Visit 03/24/2017 2:45p Main Office Miguel Ángel Calhoun Z00.00 Encntr for CARMELA Jones-Delilah general adult medical exam w/o abnormal findings Office Visit 01/06/2017 10:15a Main Office Shawnti R. S32.392D Oth fracture of Storm, [employer]PUT[employer]SULTANT-C left ilium, subs for fx w routn heal R60.9 Edema, unspecified G47.00 Insomnia, unspecified Office Visit 08/20/2016 3:15p Main Office Shawnti RJessika Storm, I10 Essential (primary) [employer] COMPUT[employer] CONSULTANT-C hypertension M54.5 Low back pain Office Visit 07/29/2016 3:00p Main Office Sukhi Ch, M25.561 Pain in right knee MD Office Visit 04/22/2016 3:30p Main Office Shawnti R. Storm, I10 Essential [employer]PUT[employer] CONSULTANT-C (primary) hypertension M54.5 Low back pain Office Visit 12/22/2015 3:45p Main Office Williewnti R. Robert, M54.5 Low back pain [employer] COM[employer] CONSULTANT-C M25.552 Pain in left hip Office Visit 09/16/2015 3:00p Main Office Shawnti R. L03.115 Cellulitis of Storm, [employer] CONSULTANT-C right lower limb S50.861A Insect bite (nonvenomous) of right forearm, init encntr Office Visit 09/09/2015 3:15p Main Office Shawnti R. L03.115 Cellulitis of right Storm, [employer] CONSULTANT-C lower limb Office Visit 09/02/2015 3:30p Main Office Shawnti R. I10 Essential ( primary) Storm, [employer]PUT[employer] CONSULTANT-C hypertension R60.0 Localized edema Office Visit 08/12/2015 3:30p Main Office Shawnti R. I10 Essential ( primary) Storm, [employer] CONSULTANT-C hypertension Office Visit 07/22/2015 3:15p Main Office Shawnti R. M54.5 Low back pain Storm, [employer] COMPUT[employer] CONSULTANT-C T78.3xxD Angioneurotic edema, subsequent encounter I10 Essential (primary) hypertension Office Visit 10/04/2014 2:00p Main Office Shawnti R. 729.2 Neuralgia Neuritis & Storm, [employer]SULTANT-C Radiculitis Unspec 724.2 Lumbago 719.45 Pain Joint Pelvic Region & Thigh Office Visit 02/25/2014 2:45p Main Office Shawnti R. 401.9 Hypertension Unspec Storm, [employer] CONSULTANT-C 724.5 Backache Unspec Office Visit 01/29/2014 9:30a Main Office Miguel Ángel Calhoun 401.9 Hypertension Unspec Storm, [employer] CONSULTANT-C Office Visit 01/10/2014 4:45p Main Office Miguel Ángel Calhoun 401.9 Hypertension Unspec Storm, [employer] CONSULTANT-C Office Visit 10/04/2012 9:00a Main Office Rola Castillo 070.54 Hepatitis C Viral Mateusz Feliciano Chronic W/O Hepatic Coma 088.81 Lyme Disease 789.04 Pain Abdominal Left Lower Quadrant Office Visit 09/27/2012 10:30a Main Office Jyothi Sahu, [employer] CONSULTANT-C 088.81 Lyme Disease 789.9 Abdomen & Pelvis Symptoms Other Office Visit 09/08/2012 11:45a Main Office Miguel Ángel Jones, 088.81 Lyme Disease [employer]SULTANT-C Office Visit 08/04/2010 2:15p Main Office Miguel Ángel Jones, 461.8 Sinusitis Acute [employer] CONSULTANT-C Other 794.8 Liver Study Abnormal Office Visit 07/28/2010 2:15p Main Office Miguel Ángel Jones, 780.4 Dizziness & [employer]SULTANT-C Giddiness 780.2 Syncope & Collapse 305.1 Tobacco Use Disorder Office Visit 01/28/2010 9:45a Main Office Nadia Booker, 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 continue to follow with oncology and general surgery regarding lung cancerFollow up:6 months
--- OUTSIDE RECORDS SUMMARY | 2018-01-20 10:17 | XMS REPORT ---
:1960 External Reference #:[id number] Author Organization [employer] Address [address] [place] [address] Phone [phone] Care Team Providers Name Role Phone Miguel Ángel Jones NP Primary Care Physician Unavailable Payers Type Date Identification Numbers Payment Provider Subscriber Commercial Policy Number: [id number] [employer] Mamta Alcaraz Group Number: [id number] [address] PayID: [id number] [place] [address] Workers Compensation Effective: 2016 Policy Number: Pma Mamta Alcaraz [id number] Onset: 2016 Group Name: [phone] [address] PayID: [id number] [place] [address] Problems Description No Information Family History Date Family Member(s) Problem(s) Comments Father Alive And Well Mother Alive And Well Siblings 6 Social History Type Date Description Comments Marital Status Single Occupation Currently Working ETOH Use Consumes 1 six pack of beer per day Smoking Light tobacco smoker (10 or fewer cigarettes/day) Recreational Drug Use Former Drug User Daily Caffeine Consumes on average 1 cup of regular coffee per day Exercise Type/Frequency Does not exercise Allergies, Adverse Reactions, Alerts Date Description Reaction Status Severity Comments 08/09/2016 Isiprolin active swollen tongue Medications Medication Date Status Form Strength Qnty SIG Indications Ordering Provider Hydrocodone-A 0 Active Tablets 7.5-325mg 1 every 8 Storm, cetaminophen 000 hours Shawnti, MUD LOGGER Gabapentin 0 Active Capsules 300mg three Storm, 000 times a Shawnti, day MUD LOGGER Metoprolol Active Tablets ER 100mg Take One Unknown Succinate ER 000 24HR Tablet By Mouth Every Day Triamterene/H Active Capsules 37.5-25mg Take One Unknown ydrochlorothi 000 Capsule azide By Mouth Every Day Naproxen Hx Tablets 500mg 60tabs 1 by S83.241A [place] F 017 mouth John, twice a MD day as needed pain Ibuprofen Hx Tablets 800mg Storm, 000 ISABELLA Del Rosario Vital Signs Date Vital Result Comment 01/11/2018 Height 70.5 inches 5'10.50" Weight 148.25 lb Heart Rate 58 /min BP Systolic Sitting 140 mmHg Lue regular cuff BP Diastolic Sitting 84 mmHg Lue regular cuff Respiratory Rate 14 /min O2 % BldC Oximetry 96 % BMI (Body Mass Index) 21.0 kg/m2 01/04/2018 Height 70.5 inches 5'10.50" Weight 145.00 lb Heart Rate 52 /min BP Systolic Sitting 144 mmHg Lue regular cuff BP Diastolic Sitting 80 mmHg Lue regular cuff Respiratory Rate 12 /min O2 % BldC Oximetry 96 % BMI (Body Mass Index) 20.5 kg/m2 Neck Circumference in inches 14 01/03/2018 Height 70.5 inches 5'10.50" Weight 143.00 lb Heart Rate 60 /min BP Systolic Sitting 144 mmHg BP Diastolic Sitting 86 mmHg Respiratory Rate 18 /min Body Temperature 98.6 F BMI (Body Mass Index) 20.2 kg/m2 08/09/2016 Height 71 inches 5'11" Weight 152.00 lb BP Systolic 141 mmHg BP Diastolic 78 mmHg Respiratory Rate 16 /min Body Temperature 97.3 F Pain Level 10 BMI (Body Mass Index) 21.2 kg/m2 Results Test Date Test Result H/L Range Note Laboratory test finding 01/04/2018 Cytology Non-Auto Suspension And Steering Mechanic SEE RESULT BELOW 1 Laboratory test finding 05/02/2017 Cytology Non-Auto Suspension And Steering Mechanic SEE RESULT BELOW 2 1 SEE RESULT BELOW Name: MAMTA ALCARAZ : [address]: Ivelisse Gold MD Acct: [id number] Unit: [id number] AGE: 57 Location: OR Re01/04/18 SEX: M Status: DEP [facility] SPEC: [id number] EMILY: 01/04/181445 SUBM DR: Ivelisse Gold MD REQ: [id number] RECD: 01/04/18-1530 STATUS: SOUT _ ORDERED: FNA-IMG GUID BX/4, CY ADEQ-ADDL P/4, LEVEL 4/4, CYTO ADEQ-1ST P/4 FINAL DIAGNOSIS 1. Lymph node, Station 7, Endobronchial ultrasound guided fine needle aspiration: --Benign bronchial epithelium, pigmented macrophages and lymphoid tissue. --No evidence of metastatic malignancy identified. 2. Lymph node, L4, Endobronchial ultrasound guided fine needle aspiration: --Benign bronchial epithelium, pigmented macrophages and lymphoid tissue. --No evidence of metastatic malignancy identified. 3. Lymph node, R4, Endobronchial ultrasound guided fine needle aspiration: --Benign bronchial epithelium, pigmented macrophages and lymphoid tissue. --No evidence of metastatic malignancy identified. 4. Lymph node, R10, Endobronchial ultrasound guided fine needle aspiration: --Benign bronchial epithelium, pigmented macrophages and lymphoid tissue. --No evidence of metastatic malignancy identified. For parts 1-4, a cell block was prepared in the evaluation of this specimen. Smears and cell block reveal similar findings. #1. LYMPH NODE - US GUIDED ENDOBRONCHIAL ST-7 FINE NEEDLE ASPIRATION, #2. LYMPH NODE - US GUIDED ENDOBRONCHIAL L-4 FINE NEEDLE ASPIRATION, CONTINUED ON NEXT PAGE DEPARTMENT OF PATHOLOGY, [address] [place] [address] Amilcar Burgos M.D. Director [facility] # [id number] RUN DATE: 01/05/18 [facility] LAB LIVE PAGE 2 Patient: MAMTA ALCARAZ [id number] (Continued) SPECIMEN(S) RECEIVED (Continued) #3. LYMPH NODE - US GUIDED ENDOBRONCHIAL R-4 FINE NEEDLE ASPIRATION, #4. LYMPH NODE - US GUIDED ENDOBRONCHIAL R-10 FINE NEEDLE ASPIRATION CLINICAL HISTORY #1) Station -7 lymph node. #2) L+-4 lymph node. #3) R-4 lymph node. #4) R-10 lymph node. IMMEDIATE INTERPRETATION 1. Pass 1 2-adequate. 2. Pass 1-inadequate, pass 2-adequate. 3. Pass 1 2-inadequate, pass 3-adequate. 4. Pass 1-inadequate, pass 2-adequate. GROSS DESCRIPTION #1) US guided endobronchial fine needle aspiration x 2 pass(es) with 3alcohol fixed slides and needle rinse in formalin for cell block. #2) US guided endobronchial fine needle aspiration x 2 pass(es) with 3 alcohol fixed slides and needle rinse in formalin for cell block. #3) US guided endobronchial fine needle aspiration x 3 pass(es) with 4 alcohol fixed slides and needle rinse in formalin for cell block. #4) US guided endobronchial fine needle aspiration x2 pass(es) with 6 alcohol fixed slides and needle rinse in formalin for cell block. Signed by and Reported on: Agata Trevino MD 01/05/18 1156 END OF REPORT DEPARTMENT OF PATHOLOGY, [address] [place] [address] Amilcar Burgos M.D. Director [facility] # [id number] 2 SEE RESULT BELOW Name: MAMTA ALCARAZ : [address]: Davin Carter MD Acct: [id number] Unit: [id number] AGE: 57 Location: Re05/02/17 SEX: M Status: REG REF SPEC: [id number] EMILY: 05/02/17-152 [facility] DR: Davin Carter MD REQ: [id number] RECD: 05/02/17-599 STATUS: CARISSA ROSALES DR: Spencer Martínez MD _ ORDERED: FNA-IMG GUID BX, LEVEL 4, CYTO ADEQ-1ST P, IMMUNO-FIRST, IMMUNO- ADDL/3, IMMUNO-QUANT Lung Panel with Rearrangement Tumor has been performed at [facility], [place], [place]. The testing reveals: Test Result Flag Unit RefValue Lung Panel with Rearrangement Tumor Result Summary See Comment RESULT: ALTERATION IDENTIFIED Result See Comment Provided diagnosis: Lung adenocarcinoma The following alteration was identified: Gene: KRAS DNA change: c.37G>T Amino Acid change: p.G13C (Plp06Ppd) Classification: MUTATION No additional reportable alterations were identified within the tested genes. Interpretation See Comment ASSOCIATIONS BETWEEN KRAS MUTATIONS AND LUNG CANCER Approximately 20% of patients with lung adenocarcinoma have a somatic mutation in the KRAS gene (1). KRAS mutations, primarily those occurring at codons 12, 13, and 61 , result in constitutive activation of the GINA/MAPK signaling pathway (2-5). Current data suggests that the efficacy of EGFR-targeted therapies in lung cancer is limited to patients with tumors lacking KRAS mutations. Thus, the detection of a KRAS activating mutation within this tumor suggests that EGFR-targeted therapies may have limited therapeutic value for this patient (2). Additionally, the absence of an EGFR mutation within this tumor also suggests that these therapies may have limited therapeutic value for this patient (2-5). REFERENCES 1. [email or web address].uk/cancergenome/[email or web address]/cosmic/ 2. Mary Rev Clin Oncol. 2010Oct 27;8(11):661-8 (PMID 48091141) 3. Int J Cancer 2011;131(5):W887-894 (PMID 83558333) CONTINUED ON NEXT PAGE DEPARTMENT OF PATHOLOGY, [address] [place] [address] Amilcar Burgos M.D. Director [facility] # [id number] RUN DATE: 05/17/17 [facility] LAB LIVE PAGE 2 Patient: MAMTA ALCARAZ [id number] (Continued) ADDENDUM (Continued) 4. Mod Pathol. 2007; Suppl 2:S16-22 (PMID 69314432) 5. J Clin Oncol. 2005 Nov 05;23(25):5904-9 (PMID 09150885) RESULT: Rola Nam M.D. Test Performed by: [address] [address] Addendum Signed (signature on file) Amilcar Burgos MD 1641 FINAL DIAGNOSIS Lung, right upper lobe, CT-guided fine needle aspiration: -- Malignant- moderately differentiated pulmonaryadenocarcinoma. Comment: The aspirate smears are abundantly cellular demonstrating numerous cohesive cytologically malignant epithelial elements. Both alcohol fixed and air dried slides are prepared. The following immunohistochemical stains were performed with appropriate controls on formalin fixed cell block material CK5/6 negative in tumor CK7 strong positive TTF-1 strong positive PDL 1 negative (less than 10% tumor staining and 0% lymphocytes staining) ALK negative Gene sequencing for additional molecular targets including EGFR, Braf mutations, and Ros-1 amongst others is pending at CONTINUED ON NEXT PAGE DEPARTMENT OF PATHOLOGY, [address] [place] [address] Amilcar Burgos M.D. Director [facility] # [id number] RUN DATE: 05/17/17 [facility] LAB LIVE PAGE 3 Patient: MAMTA ALCARAZ [id number] (Continued) SPECIMEN COMMENTS (Continued) [facility] and will be reported in an addendum. Dr. Trevino has reviewed this case and concurs. A cell block was prepared in the evaluation of this specimen. Smears and cell block reveal similar findings. LUNG RIGHT - CT GUIDED RIGHT LUNG FINE NEEDLE ASPIRATION CLINICAL HISTORY Right upper lobe nodule. IMMEDIATE INTERPRETATION Pass 1-[address] Guided, fine needle aspiration x 3 passes with 3 Alcohol fixed slide(s), 5 Air dried slide(s) and 2needle rinse in formalin for cell blocks labeled [id number] and [id number]. Signed (signature on file) Amilcar Burgos MD 1333 END OF REPORT DEPARTMENT OF PATHOLOGY, [address] [place] [address] Amilcar Burgos M.D. Director [facility] # [id number] Procedures Description No Information Encounters Type Date Location Provider CPT E/M Dx Office Visit 01/11/2018 [facility] [address] C34.11 8:15a Services Of [facility] F17.210 Office Visit 01/04/2018 8:00a [place] [address] C34.11 Services Of Auto Body Repair Technician F17.210 Office Visit 01/03/2018 11:00a [facility] Ceasar Busby, [address] C34.11 Of Auto Body Repair Technician MLeo Office Visit 08/09/2016 9:00a [facility] [place] [address] S83.241A Of Krystian Lopez MD S83.521A S83.241A Office Visit 07/19/2015 11:15a [facility] Belinda [place]angle[place], [address] T78.3xxA Assoc,farideh Hospitalists D.OJessika E87.1 I10 Office Visit 07/18/2015 11:14a [facility] Balaji Buckley [address] T78.3xxA Assoc,pc CONNOR MLeo Hospitalists E87.1 I10 M54.5 Plan of Care 01/11/2018 - Ivelisse Gold MDC34.11 Malignant neoplasm of upper lobe, right bronchus or lungFollow up:PRNF17.210 Nicotine dependence, cigarettes, uncomplicated
--- OUTSIDE RECORDS SUMMARY | 2018-01-20 10:17 | XMS REPORT ---
:1960 External Reference #:[id number] Author Organization [employer] Address [address] [facility] [place] [address] Phone [phone] Care Team Providers Name Role Phone Miguel Ángel Jones NP Primary Care Physician Unavailable Payers Type Date Identification Numbers Payment Provider Subscriber Commercial Policy Number: [id number] [employer] Mamta Alcaraz Group Number: [id number] [address] PayID: [id number] [place] [address] Workers Compensation Effective: 2016 Policy Number: Pma Mamta Alcaraz [id number] Onset: 2016 Group Name: [phone] [address] PayID: [id number] [place] [address] Problems Description No Information Family History Date [...] every 8 Storm, cetaminophen 000 hours Shawnti, PSYCHOLOGICAL AIDE Gabapentin 0 Active Capsules 300mg three Storm, 000 times a Shawnti, day PSYCHOLOGICAL AIDE Metoprolol Active Tablets ER 100mg Take One [...] Rosario Vital Signs Date Vital Result Comment 01/04/2018 Height 70.5 inches 5'10.50" Weight 145.00 [...] Result H/L Range Note Laboratory test finding 05/02/2017 Cytology Non-Fluid Designer SEE RESULT BELOW 1 1 SEE RESULT BELOW Name: MAMTA ALCARAZ : [address]: Davin Carter MD Acct: [id number] Unit: [id number] AGE: 57 Location: Re05/02/17 SEX: M Status: REG REF SPEC: [id number] EMILY: 05/02/[address] [facility] [address]: Davin Carter MD REQ: [id number] RECD: 05/02/17 STATUS: CARISSA ROSALES DR: Spencer Martínez MD _ ORDERED: FNA-IMG GUID BX, LEVEL 4, CYTO ADEQ-1ST P, IMMUNO-FIRST, IMMUNO- ADDL/3, IMMUNO-QUANT Lung Panel with Rearrangement Tumor has been performed at [place], [place]. The testing reveals: Test Result Flag Unit RefValue Lung Panel with Rearrangement Tumor Result Summary See Comment RESULT: ALTERATION IDENTIFIED Result See Comment Provided diagnosis: Lung adenocarcinoma The following alteration was identified: Gene: KRAS DNA change: c.37G>T Amino Acid change: p.G13C (Nkj68Cot) Classification: MUTATION No additional reportable alterations were [...] cancer.denis.ac.uk/cancergenome/projects/cosmic/ 2. Mary Rev Clin Oncol. 2010Oct 27;8(77):661-8 (PMID 25359284) 3. Int J Cancer 2011;131(5):M684-315 (PMID 05556295) CONTINUED ON NEXT PAGE DEPARTMENT OF PATHOLOGY, [address] [place] [address] Amilcar Burgos M.D. Director [facility] # [id number] RUN DATE: 05/17/17 [facility] LAB LIVE PAGE 2 Patient: MAMTA ALCARAZ [id number] (Continued) ADDENDUM (Continued) 4. Mod Pathol. 2007; Suppl 2:S16-22 (PMID 48649161) 5. J Clin Oncol. 2005 Nov 05;23(25):5903-9 (PMID 12924617) RESULT: Rola Nam M.D. Test Performed by: [place] [address] Addendum Signed (signature on file) Amilcar Burgos [...] CONTINUED ON NEXT PAGE DEPARTMENT OF PATHOLOGY, [address] [place] [address] Amilcar Burgos M.D. Director [facility] # [id number] RUN DATE: 05/17/17 [facility] LAB LIVE PAGE 3 Patient: MAMTA ALCARAZ [id number] (Continued) SPECIMEN COMMENTS (Continued) [facility] and will be reported in an addendum. [...] rinse in formalin for cell blocks labeled [id number] and [id number]. Signed (signature on file) Amilcar Burgos MD 1333 END OF REPORT DEPARTMENT OF PATHOLOGY, [address] [place] [address] Amilcar Burgos M.D. Director [facility] # [id number] Procedures Description No Information Encounters Type Date Location Provider CPT E/M Dx Office Visit 08/09/2016 [facility] [place], [address] S83.241A 9:00a Of Krystian PADGETT S83.521A S83.241A Office Visit 07/19/2015 11:15a [facility] Belinda Langley, [address] T78.3xxA Assoc,pc Hospitalists D.OJessika E87.1 I10 Office Visit 07/18/2015 11:14a [facility] Balaji Buckley [address] T78.3xxA Assoc,pc Mateusz RYAN Hospitalists E87.1 I10 M54.5 Plan of Care 01/04/2018 - RENZO Valdes34.11 Malignant neoplasm of upper lobe, right bronchus or lungFollow up:1 weekF17.210 Nicotine dependence, cigarettes, uncomplicated
--- OUTSIDE RECORDS SUMMARY | 2018-01-20 10:17 | XMS REPORT ---
:1960 External Reference #:[id number] Author Organization [employer] Address [address] [facility] [place] [address] Phone [phone] Care Team Providers Name Role Phone Miguel Ángel Jones NP Primary Care Physician Unavailable Payers Type Date Identification Numbers Payment Provider Subscriber Commercial Policy Number: [id number] [employer] Mamta Alcaraz Group Number: [id number] [address] PayID: [id number] [place] [address] Workers Compensation Effective: 2016 Policy Number: Pma Mamta Alcaraz [id number] Onset: 2016 Group Name: [phone] [address] PayID: [id number] [place] [address] Problems Description No Information Family History Date [...] every 8 Storm, cetaminophen 000 hours Shawnti, ROTARY PLANER SET UP OPERATOR Gabapentin 0 Active Capsules 300mg three Storm, 000 times a Shawnti, day ROTARY PLANER SET UP OPERATOR Metoprolol 00/00/0 Active Tablets ER 100mg Take One Unknown Succinate ER 000 24HR Tablet By Mouth Every Day Triamterene/H 0 Active Capsules 37.5-25mg Take One Unknown ydrochlorothi 000 Capsule azide By Mouth Every Day Naproxen Hx Tablets 500mg 60tabs 1 by S83.241A [place] F 017 mouth John, twice a MD day as needed pain Ibuprofen Hx Tablets 800mg Storm, 000 ISABELLA Del Rosario Vital Signs Date Vital Result Comment 01/18/2018 Height 70.5 inches 5'10.50" Weight 148.00 lb Heart Rate 66 /min BP Systolic Sitting 150 mmHg BP Diastolic Sitting 86 mmHg Respiratory Rate 18 /min Body Temperature 98.4 F BMI (Body Mass Index) 20.9 kg/m2 01/11/2018 Height 70.5 inches 5'10.50" Weight 148.25 [...] Test Date Test Result H/L Range Note CBC Auto Diff 01/17/2018 White Blood Count 7.6 10^3/uL 3.5-10.8 Red Blood Count 3.89 10^6/uL Low 4.00-5.40 Hemoglobin 13.4 g/dL Low 14.0-18.0 Hematocrit 40 % Low 42-52 Mean Corpuscular Volume 102 fL High 80-94 Mean Corpuscular Hemoglobin 34 pg High 27-31 Mean Corpuscular HGB Conc 34 g/dL 31-36 Red Cell Distribution Width 13 % 10.5-15 Platelet Count 128 10^3/uL Low 150-450 Mean Platelet Volume 8.9 fL 7.4-10.4 Abs Neutrophils 5.2 10^3/uL 1.5-7.7 Abs Lymphocytes 1.4 10^3/uL 1.0-4.8 Abs Monocytes 0.8 10^3/uL 0-0.8 Abs Eosinophils 0.1 10^3/uL 0-0.6 Abs Basophils 0 10^3/uL 0-0.2 Abs Nucleated RBC 0 10^3/uL Granulocyte % 68.8 % 38-83 Lymphocyte % 18.8 % Low 25-47 Monocyte % 10.1 % High 0-7 Eosinophil % 1.7 % 0-6 Basophil % 0.6 % 0-2 Nucleated Red Blood Cells % 0 Comp Metabolic Panel 01/17/2018 Sodium 133 mmol/L Low 135-145 Potassium 4.1 mmol/L 3.5-5.0 Chloride 98 mmol/L Low 101-111 Co2 Carbon Dioxide 32 mmol/L 22-32 Anion Gap 3 mmol/L 2-11 Glucose 81 mg/dL 70-100 Blood Urea Nitrogen 8 mg/dL 6-24 Creatinine 0.83 mg/dL 0.67-1.17 BUN/Creatinine Ratio 9.6 8-20 Calcium 9.6 mg/dL 8.6-10.3 Total Protein 7.6 g/dL 6.4-8.9 Albumin 3.5 g/dL 3.2-5.2 Globulin 4.1 g/dL High 2-4 Albumin/Globulin Ratio 0.9 Low 1-3 Total Bilirubin 0.60 mg/dL 0.2-1.0 Alkaline Phosphatase 101 U/L 34-104 Alt 24 U/L 7-52 Ast 52 U/L High 13-39 Egfr Non- 95.5 >60 Egfr 115.5 >60 1 Laboratory test finding 01/04/2018 Cytology Non-Director Of Physician Practices SEE RESULT BELOW 2 Laboratory test finding 05/02/2017 Cytology Non-Director Of Physician Practices SEE RESULT BELOW 3 1 Because ethnic data is not always [...] 5 Kidney failure <15 (or dialysis) 2 SEE RESULT BELOW Name: MAMTA ALCARAZ : [address]: Ivelisse Gold MD Acct: [id number] Unit: [id number] AGE: 57 Location: OR Re01/04/18 SEX: M Status: DEP [facility] SPEC: [id number] EMILY: 01/04/187135 SUBM DR: Ivelisse Gold MD REQ: [id number] RECD: 01/04/18495 STATUS: SOUT _ ORDERED: FNA-IMG GUID BX/4, [...] CONTINUED ON NEXT PAGE DEPARTMENT OF PATHOLOGY, [address] [place] [address] Amilcar Burgos M.D. Director [facility] # [id number] RUN DATE: 01/05/18 [facility] LAB LIVE PAGE 2 Patient: MAMTA ALCARAZ [id number] (Continued) SPECIMEN(S) RECEIVED (Continued) #3. LYMPH NODE [...] 1156 END OF REPORT DEPARTMENT OF PATHOLOGY, [address] [place] [address] Amilcar Burgos M.D. Director [facility] # [id number] 3 SEE RESULT BELOW Name: MAMTA ALCARAZ : [address]: Davin Carter MD Acct: [id number] Unit: [id number] AGE: 57 Location: Re05/02/17 SEX: M Status: REG REF SPEC: [id number] EMILY: 05/02/17-[address]: Davin Carter MD REQ: [id number] RECD: 05/02/17-1541 STATUS: CARISSA ROSALES DR: Spencer Martínez MD _ ORDERED: FNA-IMG GUID BX, LEVEL 4, CYTO ADEQ-1ST P, IMMUNO-FIRST, IMMUNO- ADDL/3, IMMUNO-QUANT Lung Panel with Rearrangement Tumor has been performed at [place], [place]. The testing reveals: Test Result Flag Unit RefValue Lung Panel with Rearrangement Tumor Result Summary See Comment RESULT: ALTERATION IDENTIFIED Result See Comment Provided diagnosis: Lung adenocarcinoma The following alteration was identified: Gene: KRAS DNA change: c.37G>T Amino Acid change: p.G13C (Wdh95Ktc) Classification: MUTATION No additional reportable alterations were [...] Mary Rev Clin Oncol. 2010Oct 27;8(11):661-8 (PMID 26620858) 3. Int J Cancer 2011;131(5):G360-995 (PMID 51736803) CONTINUED ON NEXT PAGE DEPARTMENT OF PATHOLOGY, [address] [place] [address] Amilcar Burgos M.D. Director CLIA # [id number] RUN DATE: 05/17/17 [facility] LAB LIVE PAGE 2 Patient: MAMTA ALCARAZ [id number] (Continued) ADDENDUM (Continued) 4. Mod Pathol. 2007; Suppl 2:S16-22 (PMID 27155251) 5. J Clin Oncol. 2005 Nov 05;23(25):2270-9 (PMID 51361044) RESULT: Rola Nam M.D. Test Performed by: [address] [address] Addendum Signed (signature on file) Amilcar Burgos [...] CONTINUED ON NEXT PAGE DEPARTMENT OF PATHOLOGY, [address] [place] [address] Amilcar Burgos M.D. Director CLIA # [id number] RUN DATE: 05/17/17 [facility] LAB LIVE PAGE 3 Patient: MAMTA ALCARAZ [id number] (Continued) SPECIMEN COMMENTS (Continued) [facility] and will be reported in an addendum. [...] rinse in formalin for cell blocks labeled [id number] and [id number]. Signed (signature on file) Amilcar Burgos MD 1333 END OF REPORT DEPARTMENT OF PATHOLOGY, [address] [place] [address] Amilcar Burgos M.D. 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 Belinda Langley, [address] T78.3xxA Assoc,pc Hospitalists D.O. E87.1 I10 Office Visit 07/18/2015 11:14a [facility] Balaji Stanislavyancy [address] T78.3xxA Assoc,pc Mateusz RYAN Hospitalists E87.1 I10 M54.5 Plan of Care Future Appointment(s):01/20/2018 12:00 pm - PAUL Campbell at [facility]01/20/2018 12:00 pm - Ceasar Busby M.D. at [facility]01/18/2018 - Shauna De La Torre, NPC34.11 Malignant neoplasm of upper lobe, right bronchus or lungFollow up:[facility] YHXOKTXICI49.818 Encounter for other preprocedural examination
--- OUTSIDE RECORDS SUMMARY | 2018-01-20 10:18 | XMS REPORT ---
:1960 External Reference #:[id number] Author Organization [employer] Address [address] [place] [address] Phone [phone] Care Team Providers Name Role Phone Miguel Ángel Jones NP Primary Care Physician Unavailable Payers Type Date Identification Numbers Payment Provider Subscriber Commercial Policy Number: [id number] [employer] Mamta Alcaraz Group Number: [id number] [address] PayID: [id number] [place] [address] Workers Compensation Effective: 2016 Policy Number: Pma Mamta Alcaraz [id number] Onset: 2016 Group Name: [phone] [address] PayID: [id number] [place] [address] Problems Description No Information Family History Date Family Member(s) Problem(s) Comments Father Alive And Well Mother Alive And Well Social History Type Date Description Comments Marital [...] Strength Qnty SIG Indications Ordering Provider Hydrocodone-A Active Tablets 7.5-325mg 1 every 8 Storm, cetaminophen 000 hours Shawnti, 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 TRAINER Gabapentin 0 Active Capsules 300mg three Storm, 000 times a Shawnti, day [employer]AREHOUSE TRAINER Metoprolol 00/00/0 Active Tablets ER 100mg Take [...] Rosario Vital Signs Date Vital Result Comment 01/03/2018 Height 70.5 inches 5'10.50" Weight 143.00 [...] Range Note Laboratory test finding 05/02/2017 Cytology Non-Inserting Press Operator SEE RESULT BELOW 1 1 SEE RESULT BELOW Name: MAMTA ALCARAZ : [address]: Davin Carter MD Acct: [id number] Unit: [id number] AGE: 57 Location: Re05/02/17 SEX: M Status: REG REF SPEC: [id number] EMILY: 05/02/[address] [facility] [address]: Davin Carter MD REQ: [id number] RECD: 05/02/17 STATUS: CARISSA ROSALES DR: Spencer Martínez MD _ ORDERED: FNA-IMG GUID BX, LEVEL 4, CYTO ADEQ-1ST P, IMMUNO-FIRST, IMMUNO- ADDL/3, IMMUNO-QUANT Lung Panel with Rearrangement Tumor has been performed at [place], [place]. The testing reveals: Test Result Flag Unit RefValue Lung Panel with Rearrangement Tumor Result Summary See Comment RESULT: ALTERATION IDENTIFIED Result See Comment Provided diagnosis: Lung adenocarcinoma The following alteration was identified: Gene: KRAS DNA change: c.37G>T Amino Acid change: p.G13C ([id number]) Classification: MUTATION No additional reportable alterations were [...] Mary Rev Clin Oncol. 2010Oct 27;8(11):661-8 (PMID 14148241) 3. Int J Cancer 2011;131(5):M780-536 (PMID [id number]) CONTINUED ON NEXT PAGE DEPARTMENT OF PATHOLOGY, [address] [place] [address] Amilcar Burgos M.D. Director [facility] # [id number] RUN DATE: 05/17/17 [facility] LAB LIVE PAGE 2 Patient: MAMTA ALCARAZ [id number] (Continued) ADDENDUM (Continued) 4. Mod Pathol. 2007; Suppl 2:S16-22 (PMID 95900921) 5. J Clin Oncol. 2005 Nov 05;23(25):5902-9 (PMID [id number]) RESULT: Rola Nam M.D. Test Performed by: [address] [address] Addendum Signed (signature on file) Amilcar Burgos [...] CONTINUED ON NEXT PAGE DEPARTMENT OF PATHOLOGY, [address] [place] [address] Amilcar Burgos M.D. Director [facility] # [id number] RUN DATE: 05/17/17 [facility] LAB LIVE PAGE 3 Patient: MAMTA ALCARAZ [id number] (Continued) SPECIMEN COMMENTS (Continued) [facility], [facility] and will be reported in an addendum. [...] rinse in formalin for cell blocks labeled [id number] and [id number]. Signed (signature on file) Amilcar Burgos MD [id number] END OF REPORT DEPARTMENT OF PATHOLOGY, [address] [place] [address] Amilcar Burgos M.D. Director [facility] # [id number] Procedures Description No Information Encounters Type Date Location Provider CPT E/M Dx Office Visit 08/09/2016 [facility] [place], [address] S83.241A 9:00a Of Krystian PADGETT S83.521A S83.241A Office Visit 07/19/2015 11:15a [facility] Belinda Langley, [address] T78.3xxA [facility] D.OJessika E87.1 I10 Office Visit 07/18/2015 11:14a [facility] Balaji Buckley [address] T78.3xxA Assoc,pc [facility]us[facility] E87.1 I10 M54.5 Plan of Care 01/03/2018 - Ceasar Busby M.D.C34.11 Malignant neoplasm of upper lobe, right bronchus or lungFollow up:As needed
[2018-01-20] MEDS ORDERED: ceFAZolin 2 GM PREMIX in ORs 2 GM/50 ML BAG IVPB ONE (10:47)
[2018-01-20] MEDS ORDERED: Ondansetron ODT TAB* 4 MG ONE (10:47)
[2018-01-20] MEDS ORDERED: Dexamethasone IV* 4 MG/ML 1 ML (4 MG) ONE ×2 (10:47→16:42)
[2018-01-20] MEDS ORDERED: Morphine VIAL* 10 MG/ML 1 ML VIAL ONE (10:47)
[2018-01-20] MEDS ORDERED: Famotidine IV* 10 MG/ML 2 ML (20 mg) ONE (10:47)
[2018-01-20] MEDS ORDERED: Heparin VIAL(*) 5000 UNITS/ML VIAL (FIVE THOUSAND) ONE (10:47)
[2018-01-20] MEDS ORDERED: Albuterol 2.5 MG/3 ML NEB.SOL* (0.083%) INH ONE (13:48)
[2018-01-20] MEDS ORDERED: Albuterol/Ipratropium NEB.SOL* Albuterol 2.5 MG/Ipratropium 0.5 MG 3 ML ONE (13:48)
[2018-01-20] MEDS ORDERED: EPHEDrine (Pressors)* 50 MG/ML VIAL IV PUSH PRN (14:59)
[2018-01-20] MEDS ORDERED: PROCHLORPERAZINE INJ 5 MG/ML 2 ML VIAL IV PRN (15:08)
[2018-01-20] MEDS ORDERED: Hetastarch 6% in NS* 500 ML IV PRN (15:08)
[2018-01-20] MEDS ORDERED: Ropivacaine 0.2% EPIDURAL* 200 MG/100 ML BAG EPIDURAL ONE (15:21)
[2018-01-20] MEDS ORDERED: Lidocaine 2% PF* 10 ML AMP ONE (15:26)
[2018-01-20] MEDS ORDERED: EPINEPHRINE 1 MG/ML 1 ML VIAL ONE (15:26)
[2018-01-20] MEDS ORDERED: Bupivacaine 0.25% W/EPI* 10 ML SDV ONE (15:32)
[2018-01-20] MEDS ORDERED: Bupivacaine 0.5% SDV PF* 30ML VIAL ONE ×2 (15:32→17:38)
[2018-01-20] MEDS ORDERED: Neostigmine Methylsulfate* 1 MG/ML 10 ML VIAL (1 mg/ml) ONE (16:34)
[2018-01-20] MEDS ORDERED: Glycopyrrolate IV* 0.2 MG/ML 1 ML VIAL ONE ×2 (16:34→16:42)
--- NOTE | 2018-01-20 17:03 | OP ---
Operative Report - Blank - Operative Report Date of Operation: 01/20/18 Note: Brief Operative Note Preop Dx: Right lung cancer Postop Dx: same Procedure: Right thoracotomy; Right upper lobectomy Anesthesia: GET; epidural Surgeon: Qi Linoleum Layer: LAURENCE Hernandez Fluids: 2000 ml RL EBL: 150 ml Specimen: right upper lobe; lymph nodes Drains: chest tube; LEANN Findings: dictated
[2018-01-20] MEDS ORDERED: Hetastarch 6% in NS* 500 ML IV ONE (17:09)
[2018-01-20] MEDS ORDERED: fentaNYL* 50 MCG/ML 2 ML VIAL (100 MCG VIAL) ONE ×4 (17:12→23:23)
[2018-01-20] MEDS: fentaNYL* 50 MCG/ML 2 ML VIAL (100 MCG VIAL) IV PRN ×6 (17:13→18:21)
[2018-01-20] MEDS ORDERED: NS 0.9% 500 ML* 500 ML IV ONE (17:16)
[2018-01-20] MEDS ORDERED: Acetaminophen TAB* 325 MG PO PRN (17:21)
[2018-01-20] MEDS ORDERED: Naloxone* 0.4 MG/ML 1 ML VIAL IV PUSH PRN (17:22)
[2018-01-20] MEDS ORDERED: Ketorolac INJ* 30 MG/ML 1 ML VIAL IV PUSH PRN (17:22)
[2018-01-20] MEDS ORDERED: Docusate CAP* 100 MG PO PRN (17:24)
[2018-01-20] MEDS ORDERED: Magnesium Hydroxide LIQ* 30 ML UDC PO PRN (17:24)
[2018-01-20] MEDS ORDERED: Ondansetron INJ* 2 MG/ML VIAL IV PRN (17:24)
[2018-01-20] MEDS ORDERED: Ondansetron ODT TAB* 4 MG SL PRN (17:24)
[2018-01-20] MEDS ORDERED: Ketorolac INJ* 30 MG/ML 1 ML VIAL ONE (17:38)
[2018-01-20] MEDS ORDERED: Morphine PCA ADULT* 5 MG/ML 30 ML PCA SCH (18:00)
[2018-01-20] MEDS ORDERED: Nicotine Inhaler* 10 MG AMP INH PRN (18:12)
[2018-01-20] MEDS: Ropivacaine 0.2% EPIDURAL* 200 MG/100 ML BAG EPIDURAL SCH (18:15)
[2018-01-20] MEDS ORDERED: Nicotine PATCH 21 MG/24 HR* PATCH TRANSDERM PRN (19:05)
[2018-01-20 20:20] LABS: Hematocrit 26 % (42-52); Hemoglobin 9.1 g/dl (14.0-18.0)
[2018-01-20 20:28] LABS: INR 1.1 (0.77-1.02)
[2018-01-20] MEDS ORDERED: NS 0.9% 1000 ML* 1,000 ML IV SCH (21:00)
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
[2018-01-20] MEDS: Gabapentin CAP(*) 300 MG PO SCH (21:28)
[2018-01-20] MEDS: Nicotine Patch Removal NOTE PATCH OFF SCH (21:28)
[2018-01-20 21:32] LABS: Mean Corpuscular HGB Conc 34 g/dl (31-36); Mean Corpuscular Hemoglobin 35 pg (27-31); Mean Corpuscular Volume 101 fL (80-94); Mean Platelet Volume 8.9 fL (7.4-10.4); Platelet Count 89 10^3/ul (150-450); Red Blood Count 2.58 10^6/ul (4.00-5.40); Red Cell Distribution Width 13 % (10.5-15); White Blood Count 7.7 10^3/ul (3.5-10.8)
[2018-01-20] MEDS ORDERED: Heparin VIAL(*) 5000 UNITS/ML VIAL (FIVE THOUSAND) SUBCUT SCH (22:00)
--- NOTE | 2018-01-20 22:37 | PN ---
Progress Note - Progress Note Date of Service: 01/20/18 Note: POD#0 s/p RULobectomy. Pt noted to have 800mL blood from chest tube output by RN but HD stable at 8pm. Lab drawn notable for decr Hb to 9.1 (13.4 preop)/ Plts decr to 89 (128 preop). 2 uPRBCs and Platelets ordered. RN noted increase in chest tube output, now 1350mL o/p and remains bloody. He remains HD stable, but due to concern of ongoing hemorrhage I spoke with Dr. Busby and he plans on return to OR for exploration. I explained the plan to the patient and his son who was at bedside. Patient states understanding and agrees.
[2018-01-20] MEDS ORDERED: ceFAZolin* 2 GM* ONE DOSE (Duplex) IVPB (23:00)
[2018-01-20 23:25] LABS: EGFR Non-African American 104.1 (>60)
[2018-01-21] MEDS ORDERED: Cisatracurium* 2 MG/ML MDV 5 ML ONE (00:12)
[2018-01-21 01:04] LABS: ABS Basophils 0.1 10^3/ul (0-0.2); ABS Eosinophils 0 10^3/ul (0-0.6); ABS Lymphocytes 0.5 10^3/ul (1.0-4.8); ABS Monocytes 0.5 10^3/ul (0-0.8); ABS Neutrophils 7.9 10^3/ul (1.5-7.7); ABS Nucleated RBC 0 10^3/ul; Eosinophil % 0 % (0-6); Hematocrit 30 % (42-52); Hemoglobin 10.2 g/dl (14.0-18.0); Lymphocyte % 5.2 % (25-47); Mean Corpuscular HGB Conc 34 g/dl (31-36); Mean Corpuscular Hemoglobin 32 pg (27-31); Mean Corpuscular Volume 94 fL (80-94); Mean Platelet Volume 8.5 fL (7.4-10.4); Nucleated Red Blood Cells % 0.1; Platelet Count 74 10^3/ul (150-450); Red Blood Count 3.18 10^6/ul (4.00-5.40); Red Cell Distribution Width 18 % (10.5-15)
[2018-01-21] MEDS ORDERED: Etomidate* 2 MG/ML 10 ML VIAL ONE (01:15)
[2018-01-21] MEDS ORDERED: Propofol* 10 MG/ML 20 ML BTL IV PUSH ONE (01:15)
[2018-01-21] MEDS ORDERED: Succinylcholine* 20 MG/ML 10 ML VIAL ONE (01:15)
[2018-01-21] MEDS ORDERED: EPHEDrine (Pressors)* 50 MG/ML VIAL ONE (01:15)
[2018-01-21] MEDS ORDERED: HYDROmorphone INJ1* 1 MG/ML SYRINGE ONE (01:46)
[2018-01-21] MEDS ORDERED: HYDROmorphone INJ1* 1 MG/ML SYRINGE IV ONE (01:47)
[2018-01-21] MEDS: Morphine VIAL* 4 MG/ML VIAL (1 ml vial) IV PRN ×2 (01:57→02:18)
[2018-01-21 02:38] LABS: Mean Platelet Volume 8.2 fL (7.4-10.4); Platelet Count 83 10^3/ul (150-450)
[2018-01-21 05:38] LABS: ABS Basophils 0 10^3/ul (0-0.2); ABS Eosinophils 0 10^3/ul (0-0.6); ABS Lymphocytes 0.7 10^3/ul (1.0-4.8); ABS Monocytes 0.9 10^3/ul (0-0.8); ABS Neutrophils 7.9 10^3/ul (1.5-7.7); ABS Nucleated RBC 0 10^3/ul; Eosinophil % 0 % (0-6); Hematocrit 27 % (42-52); Hemoglobin 9.3 g/dl (14.0-18.0); Lymphocyte % 7.2 % (25-47); Mean Corpuscular HGB Conc 35 g/dl (31-36); Mean Corpuscular Hemoglobin 32 pg (27-31); Mean Corpuscular Volume 92 fL (80-94); Mean Platelet Volume 8.2 fL (7.4-10.4); Nucleated Red Blood Cells % 0; Platelet Count 84 10^3/ul (150-450); Red Blood Count 2.95 10^6/ul (4.00-5.40); Red Cell Distribution Width 18 % (10.5-15); White Blood Count 9.5 10^3/ul (3.5-10.8)
[2018-01-21] MEDS ORDERED: Nicotine Patch Removal NOTE FOLLOW UP SCH (06:00)
[2018-01-21 06:05] LABS: EGFR Non-African American 110.7 (>60)
[2018-01-21] MEDS: Ropivacaine 0.2% EPIDURAL* 200 MG/100 ML BAG EPIDURAL SCH ×2 (06:15→16:37)
--- NOTE | 2018-01-21 07:37 | PN ---
Progress Note - Progress Note Date of Service: 01/21/18 Note: He continues to have bloody chest tube drainage >100ml/hr. UO remains adequate Labs noted At time of surgery last night, there were a few small oozing vessels, but no "smoking gun" At this point I do not believ that a return to the OR would be beneficial--it is likely to do more harm than good. I am concerned about an undiagnosed coagulation deficit. I have spoken to Dr Ren who will see urgently in consultation. Dr Barahona or surgery on-call will be covering in my absence until 01/30
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
[2018-01-21] MEDS ORDERED: Metoprolol Succinate XL TAB* 100 MG PO SCH (09:00)
[2018-01-21] MEDS ORDERED: Magnesium Sulf 4 GM/100 ML IV* 4,000 MG/100 ML BAG IVPB ONE (09:00)
[2018-01-21 09:38] LABS: INR 1.11 (0.77-1.02)
[2018-01-21] MEDS ORDERED: Norepinephrine VIAL* 1 MG/ML 4 ML VIAL ONE (09:53)
[2018-01-21] MEDS ORDERED: Norepinephrine 16MCG/ML IVPRE* 4,000 MCG/250 ML BAG IV SCH (10:00)
[2018-01-21] MEDS: Mouth Piece, Nicotine* 1 EACH CARTRIDGE INH ONE ×2 (10:05→21:25)
--- NOTE | 2018-01-21 10:19 | PN ---
Progress Note - Progress Note Date of Service: 01/21/18 Note: Anesthesia epidural follow up. Events of last night noted. Patient now going off to CT and getting central line for further bleeding. Pain is present, but is fairly well controlled. He is moving all extremities. His BP is marginal. If further drops, will have to stop epidural.
--- NOTE | 2018-01-21 10:31 | CONSULT ---
Consult Consult: PCCM Consult CC: Hypotension, bleeding HPI: 57M with htn, hepatitis, smoker, etoh abuse, presents after elective RUL lobectomy for lung adenocarcinoma. The patient went to the OR yesterday. Afterwards there was a large amount of bloody output from the chest tube with a continuous airleak. The patient was taken back to the OR for exploration. Small amount of bleeding was surgically treated and he was brought back to the ICU. The patient continues to have bloody output and is becoming hypotensive. He was started on a morphine REWRITER for his pain. He was transfused 4 unites prbc and 1 unit of platelets. The patient denies any history bleeding disorder. He denies any history of cirrhosis. ROS - as per HPI PMHx - htn, hepatitis, smoker, etoh abuse PSHx - splenic laceration repair, hip arthroscopy, ebus all - lisinopril SocHx - +etoh, +smoker, no drugs FamHx - denies PE Vital Signs: Temp Pulse Resp BP Pulse Ox 97.9 F 60 16 144/71 100 01/21/18 07:21 01/21/18 07:45 01/21/18 08:03 01/21/18 07:01 01/21/18 07:45 Gen - in pain heent - ncat, eomi, perrl neck - no jvd cv - s1/s2, no murmur lungs - cta, dec bs at right apex, +right sided chest tube, +air leak abd - soft, nt, nd ext - no cce neuro - non focal Labs Laboratory Results - last 24 hr 01/20/18 01/20/18 01/20/18 20:04 20:04 20:04 WBC 7.7 RBC 2.58 L Hgb 9.1 L Hct 26 L MCV 101 H MCH 35 H MCHC 34 RDW 13 Plt Count 89 L MPV 8.9 Neut % (Auto) Lymph % (Auto) [place] % (Auto) Eos % (Auto) Baso % (Auto) Absolute Neuts (auto) Absolute Lymphs (auto) Absolute Monos (auto) Absolute Eos (auto) Absolute Basos (auto) Absolute Nucleated RBC Nucleated RBC % INR (Anticoag Therapy) 1.10 H APTT Fibrinogen Sodium Potassium Chloride Carbon Dioxide Anion Gap BUN Creatinine Est GFR ( Amer) Est GFR (Non-Af Amer) BUN/Creatinine Ratio Glucose Calcium Magnesium Total Bilirubin AST ALT Alkaline Phosphatase Total Protein Albumin Globulin Albumin/Globulin Ratio Blood Type B Positive Antibody Screen Negative Crossmatch See Detail 01/20/18 01/21/18 01/21/18 20:04 00:50 02:27 WBC 9.0 RBC 3.18 L Hgb 10.2 L Hct 30 L MCV 94 MCH 32 H MCHC 34 RDW 18 H Plt Count 74 L 83 L MPV 8.5 8.2 Neut % (Auto) 88.2 H Lymph % (Auto) 5.2 L [place] % (Auto) 6.0 Eos % (Auto) 0 Baso % (Auto) 0.6 Absolute Neuts (auto) 7.9 H Absolute Lymphs (auto) 0.5 L Absolute Monos (auto) 0.5 Absolute Eos (auto) 0 Absolute Basos (auto) 0.1 Absolute Nucleated RBC 0 Nucleated RBC % 0.1 INR (Anticoag Therapy) APTT Fibrinogen Sodium 134 L Potassium 4.0 Chloride 106 Carbon Dioxide 23 Anion Gap 5 BUN 13 Creatinine 0.77 Est GFR ( Amer) 126.0 Est GFR (Non-Af Amer) 104.1 BUN/Creatinine Ratio 16.9 Glucose 151 H Calcium 7.6 L Magnesium 1.0 L Total Bilirubin 0.90 AST 37 ALT 14 Alkaline Phosphatase 54 Total Protein 5.0 L Albumin 2.3 L Globulin 2.7 Albumin/Globulin Ratio 0.9 L Blood Type Antibody Screen Crossmatch 01/21/18 01/21/18 01/21/18 05:30 05:30 09:16 WBC 9.5 RBC 2.95 L Hgb 9.3 L Hct 27 L MCV 92 MCH 32 H MCHC 35 RDW 18 H Plt Count 84 L MPV 8.2 Neut % (Auto) 83.2 H Lymph % (Auto) 7.2 L [place] % (Auto) 9.4 H Eos % (Auto) 0 Baso % (Auto) 0.2 Absolute Neuts (auto) 7.9 H Absolute Lymphs (auto) 0.7 L Absolute Monos (auto) 0.9 H Absolute Eos (auto) 0 Absolute Basos (auto) 0 Absolute Nucleated RBC 0 Nucleated RBC % 0 INR (Anticoag Therapy) 1.11 H APTT 31.6 Fibrinogen 167.9 Sodium 135 Potassium 4.4 Chloride 108 Carbon Dioxide 22 Anion Gap 5 BUN 15 Creatinine 0.73 Est GFR ( Amer) 134.0 Est GFR (Non-Af Amer) 110.7 BUN/Creatinine Ratio 20.5 H Glucose 140 H Calcium 7.3 L Magnesium Total Bilirubin AST ALT Alkaline Phosphatase Total Protein Albumin Globulin Albumin/Globulin Ratio Blood Type Antibody Screen Crossmatch Imaging CXR 01/21 IMPRESSION: #. Large bore chest tube in place with the tip at the level of the second posterior intercostal space similar to the 2 on the exam of one day prior. Impression 57M with htn, hepatitis, smoker, etoh abuse presents with postoperative bleeding and hypotension after RUL lobectomy for moderately differentiated adenocarcinoma Plan Neuro - pain control - monitor for withdrawal CV - hypotension - 2/2 hemorrhage and morphine - iv hydration - levophed prn Pulm - s/p RUL lobectomy - chest tube in place - +air leak - monitor drainage - if does not slow will send for CT scan to eval for active extravasation ID - afebrile - monitor fever curve - monitor wbc GI - npo for now Renal - monitor i/o - monitor lytes Heme - hemorrhage - keep hgb > 7 - keep platelets > 10 - heme/onc following Endo - check fs, niss Lines - RIJ TLC PPx - gi/dvt Full Code Critical Care Time: 90 mins
--- NOTE | 2018-01-21 10:33 | OP ---
Operative Report - Blank - Operative Report Date of Operation: 01/21/18 Note: Central Venous Catheter (CVC, Central Line) Placement Date: 01/21/18 Time: 10a Indication: Hemodynamic monitoring/Intravenous access Attending: Rod Diallo time-out was completed verifying correct patient, procedure, site, positioning , and special equipment if applicable. The patient was placed in a dependent position appropriate for central line placement based on the vein to be cannulated. The patients right neck was prepped and draped in sterile fashion. 1% Lidocaine was used to anesthetize the surrounding skin area. A triple lumen 7 -Georgian catheter was introduced into the the internal jugular vein using the Seldinger technique and under ultrasound guidance. The catheter was threaded smoothly over the guide wire and appropriate blood return was obtained. Each lumen of the catheter was evacuated of air and flushed with sterile saline. The catheter was then sutured in place to the skin and a sterile dressing applied. Perfusion to the extremity distal to the point of catheter insertion was checked and found to be adequate. Estimated Blood Loss: None The patient tolerated the procedure well and there were no complications.
[2018-01-21 11:01] LABS: ABS Basophils 0 10^3/ul (0-0.2); ABS Eosinophils 0 10^3/ul (0-0.6); ABS Lymphocytes 0.9 10^3/ul (1.0-4.8); ABS Monocytes 0.8 10^3/ul (0-0.8); ABS Neutrophils 8.4 10^3/ul (1.5-7.7); ABS Nucleated RBC 0 10^3/ul; Eosinophil % 0 % (0-6); Hematocrit 24 % (42-52); Hemoglobin 8.4 g/dl (14.0-18.0); Lymphocyte % 8.6 % (25-47); Mean Corpuscular HGB Conc 35 g/dl (31-36); Mean Corpuscular Hemoglobin 32 pg (27-31); Mean Corpuscular Volume 90 fL (80-94); Nucleated Red Blood Cells % 0; Platelet Count 84 10^3/ul (150-450); Red Blood Count 2.66 10^6/ul (4.00-5.40); Red Cell Distribution Width 19 % (10.5-15); White Blood Count 10.2 10^3/ul (3.5-10.8)
[2018-01-21] MEDS: Folic Acid TAB* 1 MG PO SCH (11:37)
[2018-01-21] MEDS: Multivitamins/Minerals TAB PO SCH (11:37)
[2018-01-21] MEDS: Gabapentin CAP(*) 300 MG PO SCH ×3 (11:37→21:25)
[2018-01-21] MEDS: Thiamine TAB* 100 MG TAB PO SCH (11:38)
[2018-01-21] MEDS: Nicotine PATCH 14 MG/24 HR* PATCH TRANSDERM SCH (13:29)
[2018-01-21 15:34] LABS: ABS Basophils 0 10^3/ul (0-0.2); ABS Eosinophils 0 10^3/ul (0-0.6); ABS Lymphocytes 1.2 10^3/ul (1.0-4.8); ABS Monocytes 1.1 10^3/ul (0-0.8); ABS Neutrophils 8.4 10^3/ul (1.5-7.7); ABS Nucleated RBC 0 10^3/ul; Eosinophil % 0 % (0-6); Hematocrit 27 % (42-52); Hemoglobin 9.2 g/dl (14.0-18.0); Lymphocyte % 10.9 % (25-47); Mean Corpuscular HGB Conc 35 g/dl (31-36); Mean Corpuscular Hemoglobin 31 pg (27-31); Mean Corpuscular Volume 89 fL (80-94); Mean Platelet Volume 8.6 fL (7.4-10.4); Nucleated Red Blood Cells % 0; Platelet Count 77 10^3/ul (150-450); Red Blood Count 3.01 10^6/ul (4.00-5.40); Red Cell Distribution Width 18 % (10.5-15); White Blood Count 10.8 10^3/ul (3.5-10.8)
[2018-01-21 15:46] LABS: EGFR Non-African American 126.6 (>60)
--- NOTE | 2018-01-21 17:59 | OP ---
CC: [facility]; Dr. Ivelisse Gold; [facility].* DATE OF OPERATION: 01/20/18 - ROOM #ICU-08 DATE OF : 60 SURGEON: Ceasar Busby M.D. SLOOP CAPTAIN: Yuli Barahona MD ANESTHESIOLOGIST: Dr. Matos. ANESTHESIA: General anesthetic, epidural, arterial line, double lumen intubation. 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 OPERATIVE PROCEDURE: Right upper lobectomy with lymph node dissection. DRAINS: 36 Lithuanian chest tube and Etienne Zamudio drain. COUNTS: Sponge and instrument counts were correct. ESTIMATED BLOOD LOSS: 150 mL. DESCRIPTION OF PROCEDURE: The patient was brought to the operating room, supine in the operating table, after epidural was placed by Anesthesia, double lumen intubation was carried out. I carried out bronchoscopy to confirm appropriate positioning and placement of the tube. Arterial line was also put in by Anesthesia and then he was turned in the lateral decubitus position with the right chest upward. He was appropriately padded and positioned and secured to the table, axillary roll was utilized as well. The right chest was prepped with antiseptic and draped in a sterile fashion. He had stockings in place, warmer in place, Hilton catheter in place. He received intravenous antibiotics. Approximately a 4 to 5 inch incision was created in the right lateral chest and carried down to the latissimus, inferior and superior flaps were created. Latissimus was then lifted upward and the serratus was entered in the direction of its fibers. Fifth nerve was identified and a portion was removed and the chest space was entered. The right upper lobe had a palpable mass in the expected location. No other palpable masses were identified. The superior pulmonary vein was dissected free and stapled with a 30 B3 stapler. Individual branches were ligated and divided. The pulmonary artery branches were ligated, clipped, and divided. The superior segmental and middle lobe branches were identified and kept out of harm's way. The vein branch to the middle lobe was kept out of harm's way as well. The fissure both anterior and posteriorly was divided with a CHERIE stapler. The right main stem bronchus was identified and the upper lobe bronchus identified at its take off. A 30 mm blue load CHERIE stapler was utilized. This was about a half cm from the bifurcation of the main stem bronchus, and the lung was insufflated before dividing the bronchus and the lower lobe inflated nicely. The bronchus was divided with a stapler and specimen sent for pathology. Lymph node dissections were carried out in levels 4, 7, and 9 and there were no enlarged lymph nodes identified. The operative stafford were irrigated with warm saline solution, free fluid was suctioned out. The bronchus stump was tested under water to 35 cm pressure. There was no evidence of air leak. Everything was in good condition. The 36 Lithuanian chest tube was placed through an inferior stab wound, sutured to the skin using 2-0 Prolene. The roofs were approximated using double loop #1 PDS followed by 2-0 Vicryl for the intercostal muscle and 0 Vicryl for the latissimus and serratus and then a LEANN drain was placed in the subcutaneum and brought out through a separate stab wound and sutured to the skin with 3-0 Prolene. The skin was then approximated using 3-0 Vicryl for the subcutaneum and clips for the skin. Sterile dressings were placed. He tolerated the procedure well, was awakened and brought to the Recovery in good condition. There were no complications. [id number]/[facility] #: [id number] MARTHA
[2018-01-21 21:17] LABS: ABS Basophils 0 10^3/ul (0-0.2); ABS Eosinophils 0 10^3/ul (0-0.6); ABS Lymphocytes 1.6 10^3/ul (1.0-4.8); ABS Monocytes 1.2 10^3/ul (0-0.8); ABS Neutrophils 8.8 10^3/ul (1.5-7.7); ABS Nucleated RBC 0 10^3/ul; Eosinophil % 0.1 % (0-6); Hematocrit 27 % (42-52); Hemoglobin 9.2 g/dl (14.0-18.0); Lymphocyte % 13.5 % (25-47); Mean Corpuscular HGB Conc 34 g/dl (31-36); Mean Corpuscular Hemoglobin 31 pg (27-31); Mean Corpuscular Volume 89 fL (80-94); Mean Platelet Volume 8.3 fL (7.4-10.4); Nucleated Red Blood Cells % 0; Platelet Count 78 10^3/ul (150-450); Red Blood Count 3.01 10^6/ul (4.00-5.40); Red Cell Distribution Width 19 % (10.5-15); White Blood Count 11.6 10^3/ul (3.5-10.8)
[2018-01-21] MEDS: Nicotine Patch Removal NOTE PATCH OFF SCH (21:19)
[2018-01-21 21:31] LABS: EGFR Non-African American 104.1 (>60)
--- NOTE | 2018-01-21 21:52 | OP ---
DATE OF OPERATION: 01/21/18 - ROOM #ICU-08 DATE OF : 60 SURGEON: Ceasar Busby MD DIRECTOR ENTERPRISE DATA ARCHITECTURE: Celio Capone MD ANESTHESIOLOGIST: Dr. Luz ANESTHESIA: General. PRE-OP DIAGNOSIS: Postoperative hemorrhage. POST-OP DIAGNOSIS: Postoperative hemorrhage. OPERATIVE PROCEDURE: Exploration of recent thoracotomy with evacuation of hematoma and control of bleeding. DESCRIPTION OF PROCEDURE: The patient was supine on the operative table. After adequate general anesthetic, he was placed in the lateral decubitus position with the right chest upward and appropriately padded, positioned and secured to the table. The chest tube and Etienne-Zamudio drain were removed and then the right chest was prepped with Betadine, draped in a sterile fashion. The previous incision were reentered. All sutures were removed and the chest was entered. Muscle layers were examined one by one and no significant hemorrhage was identified. In the pleural space, a large handful size clot was found in the upper chest and there seems to be a minute bleeder in the region of the bronchial stump. This was suture ligated and an adjacent vessel had clips placed. A little Surgicel packing was used and a gauze was placed to pack it and then additional exploration was carried out. The subcarinal space and the inferior pulmonary ligament space were all irrigated and examined and no additional significant bleeding was identified. The operative site in the chest was again irrigated and suctioned and there was little mild diffuse oozing throughout. It was felt that this might be due to his platelet count having fallen to about 70,000, so a unit of platelets was given and closure was accomplished in identical fashion to previous with the same size chest tube and Etienne-Zamudio drain inserted and sutured in the same way. Gauze dressings were placed. He tolerated the procedure well, was awakened and brought to Recovery in good condition. There were no complications. Drains, a 36- Turkish chest tube and Etienne-Zamudio. Sponge and instrument counts correct. Estimated blood loss about 500 mL of clot in the chest cavity. He got 2 units of packed cells and 1 pack of platelets during this surgery. That is on top for the 1 unit of packed cells he got in the intensive care unit. [id number]/[facility] #: [id number] [facility]
[2018-01-21] MEDS ORDERED: Ipratropium 0.5MG/2.5ML NEB* 0.5 MG/2.5 ML NEB.SOLN INH PRN (23:38)
[2018-01-22] MEDS: Albuterol 2.5 MG/3 ML NEB.SOL* (0.083%) INH PRN ×2 (00:09→04:31)
--- NOTE | 2018-01-22 02:52 | PN ---
Progress Note - Progress Note Date of Service: 01/22/18 Note: Anesthesia epidural follow up. Patient sleeping in bed comfortably, awakens easily. Pain is present, but probably as good as possible. His bleeding has decreased, BP is stable. His RN reports that he is getting breathing treatments for increased rhonchi/wheezing. He is able to move legs. s/p right upper lobectomy, continue epidural with probable D/C on Tuesday.
[2018-01-22] MEDS: Ropivacaine 0.2% EPIDURAL* 200 MG/100 ML BAG EPIDURAL SCH ×3 (04:34→23:11)
[2018-01-22 07:10] LABS: ABS Basophils 0 10^3/ul (0-0.2); ABS Eosinophils 0 10^3/ul (0-0.6); ABS Lymphocytes 1.4 10^3/ul (1.0-4.8); ABS Monocytes 0.9 10^3/ul (0-0.8); ABS Neutrophils 8.7 10^3/ul (1.5-7.7); ABS Nucleated RBC 0 10^3/ul; Eosinophil % 0.2 % (0-6); Hematocrit 26 % (42-52); Hemoglobin 8.9 g/dl (14.0-18.0); Lymphocyte % 12.8 % (25-47); Mean Corpuscular HGB Conc 34 g/dl (31-36); Mean Corpuscular Hemoglobin 31 pg (27-31); Mean Corpuscular Volume 90 fL (80-94); Mean Platelet Volume 8.7 fL (7.4-10.4); Nucleated Red Blood Cells % 0.1; Platelet Count 87 10^3/ul (150-450); Red Blood Count 2.92 10^6/ul (4.00-5.40); Red Cell Distribution Width 19 % (10.5-15); White Blood Count 11.1 10^3/ul (3.5-10.8)
[2018-01-22 07:20] LABS: EGFR Non-African American 104.1 (>60)
[2018-01-22] MEDS: Thiamine TAB* 100 MG TAB PO SCH (08:04)
[2018-01-22] MEDS: Folic Acid TAB* 1 MG PO SCH (08:04)
[2018-01-22] MEDS: Multivitamins/Minerals TAB PO SCH (08:04)
[2018-01-22] MEDS: Gabapentin CAP(*) 300 MG PO SCH ×3 (08:04→21:22)
--- NOTE | 2018-01-22 08:22 | PN ---
Progress Note - Progress Note Date of Service: 01/22/18 SOAP: Subjective: [] 57 [address] old followed by Dr. Carter for lung cancer, T2 cN0, M0. Lumpectomy done yesterday without complication. However, post operatively developed persistent bleeding from chest tube. Hgb 13.1 pre-operative was checked and was 9.1. Brought back to OR early this am for exploration. There was diffuse oozing throughout LN dissection and areas of instrumentation. No discrete source of anatomic bleeding. Following transfusions: 3 UPRBC 23:30 01/20/18 Hgb 9.1 20:00 01/20 1 U Plst 00:30 01/21/18 10.2 00:50 01/21 1 U PRBC 8:00 01/21/19 9.3 8:00 01/21 Plt 167 pre-op 74-89 post operatively INR 1.10 PTT and Fibrinogen normal Advanced coagulation studies pending PmHx: Fell off rut in November, multiple blood transfusions, ruptured spleen. No prior surgeries. Has had nose bleeds, no easy bruising. H/o back pain , HTN. Moderate drinking in past but no known liver disease. Acetaminophen (Tylenol Tab*) 650 mg PO Q4H PRN PRN Reason: mild pain Albuterol (Ventolin 2.5 Mg/3 Ml Neb.Christie*) 2.5 mg INH [id number] AWAKE PRN PRN Reason: SOB/WHEEZING Last Admin: 01/22/18 04:31 Dose: 2.5 mg Docusate Sodium (Colace Cap*) 100 mg PO BID PRN PRN Reason: CONSTIPATION Folic Acid (Folvite Tab*) 1 mg PO DAILY [facility] Last Admin: 01/22/18 08:04 Dose: 1 mg Gabapentin (Neurontin Cap(*)) 300 mg PO TID [facility] Last Admin: 01/22/18 08:04 Dose: 300 mg Ropivacaine (Ropivacaine 0.2% Epidural*) 200 mg in 100 mls @ 0 mls/hr EPIDURAL PER RATE [facility]; Protocol Last Admin: 01/22/18 04:34 Dose: 10 mls/hr Lactated Ringer's (Lactated Ringers 500 Ml Bag*) 500 mls @ 2,000 mls/hr IV ONCE PRN PRN Reason: FOR SBP < 90 Lactated Ringer's (Lactated Ringers 1000 Ml Bag*) 1,000 mls @ 125 mls/hr IV PER RATE [facility] Last Admin: 01/22/18 08:04 Dose: 125 mls/hr Morphine Sulfate (Morphine [employer] Sales Representative Adult* 5 Mg/Ml) 30 mls @ 0 mls/hr ANIMAL FEEDER .change Q24H [facility]; Protocol Last Admin: 01/21/18 08:03 Dose: 1 mls/hr Lactated Ringer's (Lactated Ringers 1000 Ml Bag*) 1,000 mls @ 1,000 mls/hr IV .BOLUS [facility] Last Admin: 01/21/18 09:45 Dose: 1,000 mls/hr Ipratropium [place] (Atrovent 0.5 Mg Neb.Christie*) 0.5 mg INH Q6H PRN PRN Reason: SOB/WHEEZING Lorazepam (Ativan Inj*) 0 - 6 mg IM .PER [place] PROTOCOL [facility]; Protocol Magnesium Hydroxide (Milk Of Magnesia Liq*) 30 ml PO BID PRN PRN Reason: CONSTIPATION Morphine Sulfate (Morphine Vial*) 3 mg IV Q5M PRN PRN Reason: PAIN Last Admin: 01/21/18 02:18 Dose: 3 mg Multivitamins/Minerals (Theragran/Minerals Tab*) 1 tab PO DAILY [facility] Last Admin: 01/22/18 08:04 Dose: 1 tab Naloxone HCl (Narcan*) 0.08 mg IV PUSH .Q2MIN PRN PRN Reason: OVERSEDATION Nicotine (Nicotine Inhaler*) 10 mg INH Q2H PRN PRN Reason: CRAVING Last Admin: 01/21/18 21:26 Dose: 10 mg Nicotine (Nicotine Patch 14 Mg/24 Hr*) 1 patch TRANSDERM DAILY [facility] Last Admin: 01/21/18 13:29 Dose: Not Given Pharmacy Profile Note (Nicotine Patch Removal Note*) 1 note PATCH OFF 2100 [facility] Last Admin: 01/21/18 21:19 Dose: Not Given Prochlorperazine Edisylate (Compazine Inj*) 5 mg IV Q6H PRN PRN Reason: NAUSEA/VOMITING Thiamine HCl (Vitamin B-1 Tab*) 100 mg PO DAILY [facility] Last Admin: 01/22/18 08:04 Dose: 100 mg Objective: [] Vital Signs Temp Pulse Resp BP Pulse Ox 99.1 F 74 12 137/66 93 01/22/18 07:43 01/22/18 07:01 11/18/18 07:01 01/22/18 07:00 01/22/18 07:01 He is stable on NC. No distress, AAOx 3 HEENT NC, no OM bleeding CTA lying flat Rate 66. S1S2 + liver edge, no spleen tip +bs skin - no oozing from IVs, no bruising chest tube, decreased drainage. Assessment: []57 year old with excessive bleeding after lumpectomy, no clear anatomic source. At this time no definable coagulopaty and appears to have homeostasis. Plan: []1. Hold additional transfusions after current unit of PRBC, check CBC daily. May need iron once stable. 2. Avoid all medication with anti-platelet effect including NSAIDS, SSRI and Zofran. 3. Replete Mg today. 6. No indication for plts or FFP at this time. 7. Additional coagulation studies pending: von Willabrand panel, Factor XI (r/o inherited defect), Factor VIII (non liver), V (liver non vit K), IX (liver vit K ) 8. Will follow up for additional bleeding or when pathology reported.
[2018-01-22] MEDS ORDERED: Magnesium Sulfate IV* 3 GM in NS 0.9% 100 ML* 100 ML IVPB ONE (08:30)
--- NOTE | 2018-01-22 09:03 | PN ---
Date of Service: 01/22/18 Critical Care Services: 57M with htn, hepatitis, smoker, etoh abuse presents with postoperative bleeding and hypotension after RUL lobectomy for moderately differentiated adenocarcinoma 01/22: hgb stable. chest tube output decreasing. cxr reviewed from this am. Has significant atelectasis on the right. SubQ emphyesema present. Chest tube in place. LEANN drain not seen. Vital Signs: Temp Pulse Resp BP SpO2 FiO2 99.1 F 74 12 137/66 93 01/22/18 07:43 01/22/18 07:01 01/22/18 07:01 01/22/18 07:00 01/22/18 07:01 Physical Exam: Gen - asleep, nad heent - ncat, eomi, perrl neck - no jvd cv - s1/s2, no murmur chest - +crepitus lungs - cta, dec bs at right apex, +right sided chest tube, +air leak abd - soft, nt, nd ext - no cce neuro - non focal Fluid Balance (Past 24 Hours): I= O= Net Intake & Output 01/20/18 01/21/18 01/22/18 01/23/18 06:59 06:59 06:59 06:59 Intake Total 8216.4 4536 1293.9 Output Total 3280 2836 Balance 4936.4 1700 1293.9 Weight 71.804 kg 98.7 kg Intake: IV Fluids 6611.4 3025 1293.9 HETASTARCH 500 LR 5010 2832 1145 NS (0.9%) 1051.4 193 148.9 NS 50ML, Cefazolin 2G 50 IVPB 115 magnesium sulfate 115 Medicated IV 500 Hetastarch 500 Oral 1110 Packed Cells 905 286 Platelets 200 Output: Chest Tube #1 2680 1771 Hilton 600 1065 Labs: Laboratory Results - last 24 hr 01/20/18 01/21/18 01/21/18 20:04 09:16 09:16 WBC 10.2 RBC 2.66 L Hgb 8.4 L Hct 24 L MCV 90 MCH 32 H MCHC 35 RDW 19 H Plt Count 84 L MPV 9.0 Neut % (Auto) 83.1 H Lymph % (Auto) 8.6 L [place] % (Auto) 8.3 H Eos % (Auto) 0 Baso % (Auto) 0 Absolute Neuts (auto) 8.4 H Absolute Lymphs (auto) 0.9 L Absolute Monos (auto) 0.8 Absolute Eos (auto) 0 Absolute Basos (auto) 0 Absolute Nucleated RBC 0 Nucleated RBC % 0 INR (Anticoag Therapy) 1.11 H APTT 31.6 Fibrinogen 167.9 Sodium Potassium Chloride Carbon Dioxide Anion Gap BUN Creatinine Est GFR ( Amer) Est GFR (Non-Af Amer) BUN/Creatinine Ratio Glucose Lactic Acid Calcium Magnesium Blood Type B Positive Antibody Screen Negative Crossmatch See Detail 01/21/18 01/21/18 01/21/18 10:35 15:17 15:17 WBC 10.8 RBC 3.01 L Hgb 9.2 L Hct 27 L MCV 89 MCH 31 MCHC 35 RDW 18 H Plt Count 77 L D MPV 8.6 Neut % (Auto) 78.3 Lymph % (Auto) 10.9 L [place] % (Auto) 10.5 H Eos % (Auto) 0 Baso % (Auto) 0.3 Absolute Neuts (auto) 8.4 H Absolute Lymphs (auto) 1.2 Absolute Monos (auto) 1.1 H Absolute Eos (auto) 0 Absolute Basos (auto) 0 Absolute Nucleated RBC 0 Nucleated RBC % 0 INR (Anticoag Therapy) APTT Fibrinogen Sodium 136 Potassium 4.4 Chloride 109 Carbon Dioxide 27 Anion Gap BUN 16 Creatinine 0.65 L Est GFR ( Amer) 153.2 Est GFR (Non-Af Amer) 126.6 BUN/Creatinine Ratio 24.6 H Glucose 123 H Lactic Acid 2.3 H* Calcium 7.0 L Magnesium 2.3 Blood Type Antibody Screen Crossmatch 01/21/18 01/21/18 01/22/18 21:05 21:05 06:50 WBC 11.6 H RBC 3.01 L Hgb 9.2 L Hct 27 L MCV 89 MCH 31 MCHC 34 RDW 19 H Plt Count 78 L MPV 8.3 Neut % (Auto) 76.0 Lymph % (Auto) 13.5 L [place] % (Auto) 10.2 H Eos % (Auto) 0.1 Baso % (Auto) 0.2 Absolute Neuts (auto) 8.8 H Absolute Lymphs (auto) 1.6 Absolute Monos (auto) 1.2 H Absolute Eos (auto) 0 Absolute Basos (auto) 0 Absolute Nucleated RBC 0 Nucleated RBC % 0 INR (Anticoag Therapy) APTT Fibrinogen Sodium 133 L 131 L Potassium 4.4 4.2 Chloride 106 105 Carbon Dioxide 27 25 Anion Gap 1 L BUN 17 16 Creatinine 0.77 0.77 Est GFR ( Amer) 126.0 126.0 Est GFR (Non-Af Amer) 104.1 104.1 BUN/Creatinine Ratio 22.1 H 20.8 H Glucose 116 H 132 H Lactic Acid Calcium 7.3 L 7.4 L Magnesium 1.8 L 1.5 L Blood Type Antibody Screen Crossmatch 01/22/18 06:50 WBC 11.1 H RBC 2.92 L Hgb 8.9 L Hct 26 L MCV 90 MCH 31 MCHC 34 RDW 19 H Plt Count 87 L MPV 8.7 Neut % (Auto) 78.4 Lymph % (Auto) 12.8 L [place] % (Auto) 8.3 H Eos % (Auto) 0.2 Baso % (Auto) 0.3 Absolute Neuts (auto) 8.7 H Absolute Lymphs (auto) 1.4 Absolute Monos (auto) 0.9 H Absolute Eos (auto) 0 Absolute Basos (auto) 0 Absolute Nucleated RBC 0 Nucleated RBC % 0.1 INR (Anticoag Therapy) APTT Fibrinogen Sodium Potassium Chloride Carbon Dioxide Anion Gap BUN Creatinine Est GFR ( Amer) Est GFR (Non-Af Amer) BUN/Creatinine Ratio Glucose Lactic Acid Calcium Magnesium Blood Type Antibody Screen Crossmatch Studies: CXR 01/22 IMPRESSION: #. Unchanged apical position of the RIGHT chest tube. #. Interval improvement in atelectasis within the residual RIGHT lung. CXR 01/21 IMPRESSION: #. Large bore chest tube in place with the tip at the level of the second posterior intercostal space similar to the 2 on the exam of one day prior. Impression: 57M with htn, hepatitis, smoker, etoh abuse presents with postoperative bleeding and hypotension after RUL lobectomy for moderately differentiated adenocarcinoma Plan: Neuro - pain control - monitor for withdrawal CV - hypotension - 2/2 hemorrhage and morphine - now improved Pulm - s/p RUL lobectomy - chest tube in place - +air leak - output slowing - cxr with atelectasis and some mediastinal shift - start incentive spirometry - chest pt ID - afebrile - monitor fever curve - monitor wbc GI - advance diet as tolerated Renal - monitor i/o - monitor lytes Heme - hemorrhage - hgb stable - monitor cbc - heme/onc following Endo - check fs, niss Lines - RIJ TLC PPx - gi/dvt Full Code Critical Care Time: 40 mins
[2018-01-22] MEDS ORDERED: Morphine PCA ADULT* 5 MG/ML 30 ML PCA SCH ×2 (09:19→11:49)
[2018-01-22] MEDS: Nicotine PATCH 14 MG/24 HR* PATCH TRANSDERM SCH (10:18)
--- NOTE | 2018-01-22 11:29 | PN ---
Progress Note - Progress Note Date of Service: 01/22/18 Note: Surgery Progress Note S: Patient is POD 2 from thoracotomy, right upper lobectomy complicated by bleeding requiring reexploration on POD 0. No obvious sources of bleeding were found. Yesterday post op during the day patient only received 1 PRBC. Serial Hct were stable and chest tube output has dropped off to 20-30cc per hour. Patient this morning complains primarily of pain but appears motivated. Objective: Vital Signs - 24 hr 01/21/18 01/21/18 01/21/18 11:30 11:31 11:32 Temperature 97.4 F Pulse Rate 61 60 Respiratory 22 16 Rate Blood Pressure 104/59 (mmHg) O2 Sat by Pulse 92 91 Oximetry 01/21/18 01/21/18 01/21/18 11:45 11:46 12:00 Temperature Pulse Rate 69 67 60 Respiratory 17 14 19 Rate Blood Pressure 111/62 104/63 (mmHg) O2 Sat by Pulse 97 97 93 Oximetry 01/21/18 01/21/18 01/21/18 12:01 12:15 12:16 Temperature Pulse Rate 61 65 61 Respiratory 15 17 22 Rate Blood Pressure 99/52 (mmHg) O2 Sat by Pulse 92 95 92 Oximetry 01/21/18 01/21/18 01/21/18 12:30 12:31 12:45 Temperature Pulse Rate 58 60 62 Respiratory 12 11 11 Rate Blood Pressure 109/62 125/65 (mmHg) O2 Sat by Pulse 98 96 94 Oximetry 01/21/18 01/21/18 01/21/18 12:46 13:00 13:01 Temperature Pulse Rate 60 56 57 Respiratory 17 14 22 Rate Blood Pressure 128/65 (mmHg) O2 Sat by Pulse 96 99 99 Oximetry 01/21/18 01/21/18 01/21/18 13:15 13:16 13:30 Temperature Pulse Rate 61 60 62 Respiratory 13 16 15 Rate Blood Pressure 124/70 124/70 (mmHg) O2 Sat by Pulse 94 97 94 Oximetry 01/21/18 01/21/18 01/21/18 13:31 13:45 13:46 Temperature Pulse Rate 61 61 63 Respiratory 10 16 20 Rate Blood Pressure 130/68 (mmHg) O2 Sat by Pulse 92 91 92 Oximetry 01/21/18 01/21/18 01/21/18 14:00 14:01 14:15 Temperature Pulse Rate 65 65 59 Respiratory 22 18 14 Rate Blood Pressure 137/74 147/74 (mmHg) O2 Sat by Pulse 98 98 98 Oximetry 01/21/18 01/21/18 01/21/18 14:30 14:31 14:45 Temperature Pulse Rate 58 58 57 Respiratory 11 7 11 Rate Blood Pressure 124/75 122/70 (mmHg) O2 Sat by Pulse 97 96 96 Oximetry 01/21/18 01/21/18 01/21/18 14:46 15:00 15:01 Temperature Pulse Rate 58 55 56 Respiratory 17 10 11 Rate Blood Pressure 139/75 (mmHg) O2 Sat by Pulse 99 100 99 Oximetry 01/21/18 01/21/18 01/21/18 15:15 15:16 15:30 Temperature Pulse Rate 61 61 54 Respiratory 16 20 14 Rate Blood Pressure 140/81 141/73 (mmHg) O2 Sat by Pulse 100 100 100 Oximetry 01/21/18 01/21/18 01/21/18 15:31 15:45 15:46 Temperature Pulse Rate 54 55 55 Respiratory 15 10 9 Rate Blood Pressure 144/80 (mmHg) O2 Sat by Pulse 100 100 100 Oximetry 01/21/18 01/21/18 01/21/18 16:00 16:02 16:15 Temperature 99 F Pulse Rate 58 61 56 Respiratory 14 17 14 Rate Blood Pressure 142/73 132/79 (mmHg) O2 Sat by Pulse 98 98 98 Oximetry 01/21/18 01/21/18 01/21/18 16:16 16:30 16:31 Temperature Pulse Rate 55 55 55 Respiratory 11 10 16 Rate Blood Pressure 135/74 (mmHg) O2 Sat by Pulse 98 98 98 Oximetry 01/21/18 01/21/18 01/21/18 16:45 16:46 17:00 Temperature Pulse Rate 56 60 56 Respiratory 16 15 15 Rate Blood Pressure 135/64 147/74 (mmHg) O2 Sat by Pulse 97 98 98 Oximetry 01/21/18 01/21/18 01/21/18 17:01 17:15 17:16 Temperature Pulse Rate 56 58 57 Respiratory 13 15 12 Rate Blood Pressure 131/73 (mmHg) O2 Sat by Pulse 98 100 100 Oximetry 01/21/18 01/21/18 01/21/18 17:30 17:31 17:45 Temperature Pulse Rate 57 64 57 Respiratory 12 21 15 Rate Blood Pressure 144/79 134/74 (mmHg) O2 Sat by Pulse 99 98 98 Oximetry 01/21/18 01/21/1818 17:46 18:00 18:01 Temperature Pulse Rate 57 57 57 Respiratory 13 13 13 Rate Blood Pressure 126/76 (mmHg) O2 Sat by Pulse 98 99 99 Oximetry 01/21/18 01/21/18 01/21/18 18:15 18:16 18:30 Temperature Pulse Rate 58 58 58 Respiratory 14 12 12 Rate Blood Pressure 137/82 148/85 (mmHg) O2 Sat by Pulse 98 98 98 Oximetry 01/21/18 01/21/18 01/21/18 18:31 18:45 18:46 Temperature Pulse Rate 57 62 62 Respiratory 12 15 16 Rate Blood Pressure 149/74 (mmHg) O2 Sat by Pulse 98 100 100 Oximetry 01/21/18 01/21/18 01/21/18 19:00 19:02 19:15 Temperature Pulse Rate 61 64 57 Respiratory 17 18 12 Rate Blood Pressure 142/68 144/77 (mmHg) O2 Sat by Pulse 100 99 99 Oximetry 01/21/18 01/21/1818 19:16 19:30 19:45 Temperature Pulse Rate 57 59 57 Respiratory 12 11 12 Rate Blood Pressure 125/77 136/77 (mmHg) O2 Sat by Pulse 100 98 98 Oximetry 01/21/18 01/21/18 01/21/18 19:46 20:00 20:01 Temperature 98.8 F Pulse Rate 58 58 59 Respiratory 12 11 Rate Blood Pressure 134/78 (mmHg) O2 Sat by Pulse 97 96 98 Oximetry 01/21/18 01/21/18 01/21/18 20:15 20:30 20:45 Temperature Pulse Rate 63 59 59 Respiratory 18 13 17 Rate Blood Pressure 145/79 143/79 137/81 (mmHg) O2 Sat by Pulse 100 97 98 Oximetry 01/21/18 01/21/18 01/21/18 21:00 21:15 21:30 Temperature Pulse Rate 60 59 67 Respiratory 12 7 18 Rate Blood Pressure 132/82 144/79 (mmHg) O2 Sat by Pulse 97 99 98 Oximetry 01/21/18 01/21/1818 21:31 21:45 22:00 Temperature Pulse Rate 65 61 62 Respiratory 16 12 18 Rate Blood Pressure 173/74 143/79 144/79 (mmHg) O2 Sat by Pulse 100 98 98 Oximetry 01/21/18 01/21/18 01/21/18 22:15 22:30 22:45 Temperature Pulse Rate 61 63 65 Respiratory 11 11 15 Rate Blood Pressure 151/83 151/81 162/83 (mmHg) O2 Sat by Pulse 98 97 97 Oximetry 01/21/18 01/21/18 01/21/18 23:00 23:15 23:29 Temperature Pulse Rate 65 68 Respiratory 13 13 Rate Blood Pressure 164/88 155/83 (mmHg) O2 Sat by Pulse 97 97 97 Oximetry 01/21/18 01/21/18 01/22/18 23:30 23:45 00:00 Temperature 98.4 F Pulse Rate 66 67 69 Respiratory 12 16 16 Rate Blood Pressure 151/87 156/81 140/77 (mmHg) O2 Sat by Pulse 96 97 97 Oximetry 01/22/18 01/22/18 01/22/18 00:01 00:09 00:15 Temperature Pulse Rate 72 66 65 Respiratory 26 20 16 Rate Blood Pressure 146/76 (mmHg) O2 Sat by Pulse 99 100 100 Oximetry 01/22/18 01/22/18 01/22/18 00:30 00:45 01:00 Temperature Pulse Rate 66 67 67 Respiratory 8 9 14 Rate Blood Pressure 146/81 154/83 153/81 (mmHg) O2 Sat by Pulse 96 95 96 Oximetry 01/22/18 01/22/18 01/22/18 01:15 01:30 01:45 Temperature Pulse Rate 68 68 67 Respiratory 11 13 10 Rate Blood Pressure 153/83 146/81 147/80 (mmHg) O2 Sat by Pulse 96 96 96 Oximetry 01/22/18 01/22/18 01/22/18 02:00 02:15 02:16 Temperature Pulse Rate 69 69 67 Respiratory 15 11 15 Rate Blood Pressure 152/80 145/80 (mmHg) O2 Sat by Pulse 97 96 96 Oximetry 01/22/18 01/22/18 01/22/18 02:30 02:41 02:45 Temperature Pulse Rate 69 68 66 Respiratory 11 12 14 Rate Blood Pressure 157/81 157/81 158/82 (mmHg) O2 Sat by Pulse 96 97 97 Oximetry 01/22/18 01/22/18 01/22/18 03:00 03:01 03:15 Temperature Pulse Rate 67 68 68 Respiratory 14 13 17 Rate Blood Pressure 144/74 157/81 (mmHg) O2 Sat by Pulse 96 96 97 Oximetry 01/22/18 01/22/18 01/22/18 03:30 03:45 03:55 Temperature 98.7 F Pulse Rate 69 69 Respiratory 13 13 Rate Blood Pressure 157/83 159/76 (mmHg) O2 Sat by Pulse 95 96 Oximetry 01/22/18 01/22/18 01/22/18 04:00 04:01 04:15 Temperature Pulse Rate 68 69 71 Respiratory 15 14 9 Rate Blood Pressure 150/81 138/82 (mmHg) O2 Sat by Pulse 95 95 95 Oximetry 01/22/18 01/22/18 01/22/18 04:16 04:30 04:45 Temperature Pulse Rate 74 72 75 Respiratory 14 19 15 Rate Blood Pressure 151/106 153/74 (mmHg) O2 Sat by Pulse 95 100 93 Oximetry 01/22/18 01/22/18 01/22/18 05:00 05:15 05:30 Temperature Pulse Rate 74 77 74 Respiratory 13 13 12 Rate Blood Pressure 147/73 147/80 142/79 (mmHg) O2 Sat by Pulse 92 93 93 Oximetry 01/22/18 01/22/18 01/22/18 05:45 06:00 06:17 Temperature Pulse Rate 76 77 95 Respiratory 15 10 28 Rate Blood Pressure 140/78 143/76 135/86 (mmHg) O2 Sat by Pulse 93 92 89 Oximetry 01/22/18 01/22/18 01/22/18 06:30 06:31 06:45 Temperature Pulse Rate 75 75 77 Respiratory 13 13 10 Rate Blood Pressure 142/77 142/81 (mmHg) O2 Sat by Pulse 96 95 94 Oximetry 01/22/18 01/22/18 01/22/18 06:46 07:00 07:01 Temperature Pulse Rate 75 75 74 Respiratory 10 12 12 Rate Blood Pressure 137/66 (mmHg) O2 Sat by Pulse 95 94 93 Oximetry 01/22/18 01/22/18 01/22/18 07:15 07:16 07:30 Temperature Pulse Rate 73 73 77 Respiratory 13 13 15 Rate Blood Pressure 145/70 151/81 (mmHg) O2 Sat by Pulse 94 95 94 Oximetry 01/22/18 01/22/18 01/22/18 07:31 07:43 07:45 Temperature 99.1 F Pulse Rate 74 75 Respiratory 11 16 Rate Blood Pressure 141/79 (mmHg) O2 Sat by Pulse 95 94 Oximetry 01/22/18 01/22/18 01/22/18 07:46 08:00 08:01 Temperature 99.1 F Pulse Rate 73 72 85 Respiratory 10 15 15 Rate Blood Pressure 152/68 (mmHg) O2 Sat by Pulse 95 95 95 Oximetry 01/22/18 01/22/18 01/22/18 08:15 08:16 08:30 Temperature Pulse Rate 75 74 75 Respiratory 15 16 16 Rate Blood Pressure 136/82 144/79 (mmHg) O2 Sat by Pulse 94 95 94 Oximetry 01/22/18 01/22/18 01/22/18 08:31 08:45 08:46 Temperature Pulse Rate 73 73 74 Respiratory 19 10 16 Rate Blood Pressure 142/81 (mmHg) O2 Sat by Pulse 94 93 93 Oximetry 01/22/18 01/22/18 09:00 09:01 Temperature Pulse Rate 73 72 Respiratory 14 11 Rate Blood Pressure 144/70 (mmHg) O2 Sat by Pulse 94 95 Oximetry Intake & Output 01/21/18 01/22/18 01/22/18 22:59 06:59 14:59 Intake Total 2116 50 1773.9 Output Total 836 570 60 Balance 1280 -520 1713.9 Weight 217 lb 9.54 oz Intake: IV Fluids 1056 1293.9 LR 938 1145 NS (0.9%) 118 148.9 Oral 1060 50 480 Output: Chest Tube #1 411 215 35 Maloney 425 355 25 Laboratory Results - last 24 hr 01/20/18 01/21/18 01/21/18 20:04 15:17 15:17 WBC 10.8 RBC 3.01 L Hgb 9.2 L Hct 27 L MCV 89 MCH 31 MCHC 35 RDW 18 H Plt Count 77 L D MPV 8.6 Neut % (Auto) 78.3 Lymph % (Auto) 10.9 L [place] % (Auto) 10.5 H Eos % (Auto) 0 Baso % (Auto) 0.3 Absolute Neuts (auto) 8.4 H Absolute Lymphs (auto) 1.2 Absolute Monos (auto) 1.1 H Absolute Eos (auto) 0 Absolute Basos (auto) 0 Absolute Nucleated RBC 0 Nucleated RBC % 0 Sodium 136 Potassium 4.4 Chloride 109 Carbon Dioxide 27 Anion Gap BUN 16 Creatinine 0.65 L Est GFR ( Amer) 153.2 Est GFR (Non-Af Amer) 126.6 BUN/Creatinine Ratio 24.6 H Glucose 123 H Calcium 7.0 L Magnesium 2.3 Blood Type B Positive Antibody Screen Negative Crossmatch See Detail 01/21/18 01/21/18 01/22/18 21:05 21:05 06:50 WBC 11.6 H RBC 3.01 L Hgb 9.2 L Hct 27 L MCV 89 MCH 31 MCHC 34 RDW 19 H Plt Count 78 L MPV 8.3 Neut % (Auto) 76.0 Lymph % (Auto) 13.5 L [place] % (Auto) 10.2 H Eos % (Auto) 0.1 Baso % (Auto) 0.2 Absolute Neuts (auto) 8.8 H Absolute Lymphs (auto) 1.6 Absolute Monos (auto) 1.2 H Absolute Eos (auto) 0 Absolute Basos (auto) 0 Absolute Nucleated RBC 0 Nucleated RBC % 0 Sodium 133 L 131 L Potassium 4.4 4.2 Chloride 106 105 Carbon Dioxide 27 25 Anion Gap 1 L BUN 17 16 Creatinine 0.77 0.77 Est GFR ( Amer) 126.0 126.0 Est GFR (Non-Af Amer) 104.1 104.1 BUN/Creatinine Ratio 22.1 H 20.8 H Glucose 116 H 132 H Calcium 7.3 L 7.4 L Magnesium 1.8 L 1.5 L Blood Type Antibody Screen Crossmatch 01/22/18 06:50 WBC 11.1 H RBC 2.92 L Hgb 8.9 L Hct 26 L MCV 90 MCH 31 MCHC 34 RDW 19 H Plt Count 87 L MPV 8.7 Neut % (Auto) 78.4 Lymph % (Auto) 12.8 L [place] % (Auto) 8.3 H Eos % (Auto) 0.2 Baso % (Auto) 0.3 Absolute Neuts (auto) 8.7 H Absolute Lymphs (auto) 1.4 Absolute Monos (auto) 0.9 H Absolute Eos (auto) 0 Absolute Basos (auto) 0 Absolute Nucleated RBC 0 Nucleated RBC % 0.1 Sodium Potassium Chloride Carbon Dioxide Anion Gap BUN Creatinine Est GFR ( Amer) Est GFR (Non-Af Amer) BUN/Creatinine Ratio Glucose Calcium Magnesium Blood Type Antibody Screen Crossmatch Radiology: CXR 01/22 reviewed, some atelectasis, subcutaneous emphysema Physical exam: Chest: decreased breath sounds bilaterally, dresing in place over incision, LEANN with minimal output, chest tube with serosanguinous output on suction with small air leak A/P: 57 M post op right thoracotomy, right upper lobectomy and reexploration for bleeding, improved. Hemodynamically stable, chest tube output markedly decreased, Hct stable. - Continue to monitor daily Hct - Regular diet as tolerated - PT - Aggressive IS - Pain control with epidural and BEAR KEEPER - Holding HSQ, toradol - DC maloney catheter today
[2018-01-22 13:14] LABS: ABS Basophils 0 10^3/ul (0-0.2); ABS Eosinophils 0 10^3/ul (0-0.6); ABS Lymphocytes 1.1 10^3/ul (1.0-4.8); ABS Neutrophils 9.4 10^3/ul (1.5-7.7); ABS Nucleated RBC 0 10^3/ul; Eosinophil % 0.1 % (0-6); Hematocrit 26 % (42-52); Hemoglobin 8.7 g/dl (14.0-18.0); Lymphocyte % 9.7 % (25-47); Mean Corpuscular HGB Conc 34 g/dl (31-36); Mean Corpuscular Hemoglobin 31 pg (27-31); Mean Corpuscular Volume 90 fL (80-94); Mean Platelet Volume 9.1 fL (7.4-10.4); Nucleated Red Blood Cells % 0; Platelet Count 92 10^3/ul (150-450); Red Blood Count 2.84 10^6/ul (4.00-5.40); Red Cell Distribution Width 19 % (10.5-15); White Blood Count 11.6 10^3/ul (3.5-10.8)
--- NOTE | 2018-01-22 14:07 | ECHO ---
Patient: MAMTA FLEMING Rec#: [id number] : 1960 Date: 01/22/2018 Age: 57y Height: 178 cm / 70.1 in Weight: 71.8 kg / 158.2 lbs Sex: M BSA: 1.9 Room#: ICU 8 Admit Date#: 01/20/2018 Type: Inpatient Referring: Dieter Velasco DO Reading: Fermin Mata MD [employer]: Katelynn Greenwood RN RDCS CC: Miguel Ángel Jones NP Transthoracic Echocardiogram Indication: CHF BP: 145/75 HR: 74 Rhythm: NSR Findings History: HTN, hepatitis, ETOH abuse, smoker, S/P RUL lobectomy on 01/20/2018 with post-op bleeding and hypotension. Technical Comments: The study quality is fair. The study is technically limited due to the patient's smoking history. Left Ventricle: The left ventricular chamber size is normal. There is no left ventricular hypertrophy. Global left ventricular wall motion and contractility are within normal limits. There is normal left ventricular systolic function. The estimated ejection fraction is 55-60%. The assessment of diastolic function is non-diagnostic. Left Atrium: The left atrium is not well visualized. The left atrial chamber size is normal. Right Ventricle: The right ventricle is not well visualized. The right ventricular cavity size is normal. The right ventricular global systolic function is low normal. Right Atrium: The right atrial cavity size is normal. Aortic Valve: The aortic valve leaflets are mildly thickened. There is moderate thickening of the non coronary cusp. There is no evidence of aortic regurgitation. There is no evidence of aortic stenosis. Mitral Valve: The mitral valve leaflets are mildly thickened. There is a trace of mitral regurgitation. There is no evidence of mitral stenosis. Tricuspid Valve: The tricuspid valve leaflets are normal. There is trace tricuspid regurgitation. Unable to estimate the right ventricular systolic pressure. There is no tricuspid stenosis. Pulmonic Valve: The pulmonic valve structure is not well visualized. Pericardium: There is no significant pericardial effusion. Aorta: The ascending aorta is not well visualized. The aortic arch is not well visualized. There is no dilation of the aortic root. Pulmonary Artery: The main pulmonary artery is not well visualized. Venous: The venous system is not well visualized. The inferior vena cava is not visualized. Summary: There was not any prior study for comparison. Conclusions Global left ventricular wall motion and contractility are within normal limits. There is normal left ventricular systolic function. The estimated ejection fraction is 55-60%. There is moderate thickening of the non coronary cusp. There is no evidence of aortic stenosis. There is a trace of mitral regurgitation. There is trace tricuspid regurgitation. Unable to estimate the right ventricular systolic pressure. There is no significant pericardial effusion. Measurements Name Value Normal Range RVDdMajor (2D) 3 cm (2.2 - 4.4) RAd ISD 4CH 4.7 cm (3.4 - 4.9) RA (A4C)W 3.8 cm (2.9 - 4.6) IVSd (2D) 1 cm (0.6 - 1) LVPWd (2D) 1 cm (0.6 - 1) LVIDd (2D) 4.6 cm (3.6 - 5.4) LVIDs (2D) 3.4 cm - LV FS (2D) 26 % (25 - 45) Aortic Annulus 2 cm (1.4 - 2.6) Ao root diameter (2D) 3.1 cm (2.1 - 3.5) LA dimension (AP) 2D 2.4 cm (2.3 - 3.8) Name Value Normal Range MV E-wave Vmax 0.8 m/sec - MV deceleration time 303 msec - MV A-wave Vmax 1.1 m/sec - MV E:A ratio 0.8 ratio - LV septal e' Vmax 0.07 m/sec - LV lateral e' Vmax 0.11 m/sec - LV E:e' septal ratio 11.4 ratio - LV E:e' lateral ratio 7.3 ratio - Name Value Normal Range AV Vmax 1.5 m/sec - AV VTI 28.6 cm - AV peak gradient 9 mmHg - AV mean gradient 5 mmHg - LVOT Vmax 1.2 m/sec - LVOT VTI 21.3 cm - LVOT peak gradient 6 mmHg - LVOT mean gradient 2 mmHg - Name Value Normal Range IVC diameter 0.6 cm - Name Value Normal Range PV Vmax 0.62 m/sec -
[2018-01-22] MEDS ORDERED: Metoprolol Tartrate TAB* 25 MG ONE (14:11)
[2018-01-22] MEDS ORDERED: Metoprolol Tartrate TAB* 25 MG PO SCH (15:00)
[2018-01-22] MEDS: Metoprolol Succinate XL TAB* 100 MG PO SCH (15:59)
[2018-01-22] MEDS: LORazepam INJ* 2 MG/ML 1 ML VIAL IM SCH (16:16)
[2018-01-22] MEDS ORDERED: Metoprolol Tartrate IV* 1 MG/ML 5 ML VIAL ONE (16:22)
[2018-01-22] MEDS ORDERED: Metoprolol Tartrate IV* 1 MG/ML 5 ML VIAL IV ONE ×2 (17:00→20:30)
[2018-01-22] MEDS ORDERED: Acetaminophen SUPP* 650 MG SUPP PR PRN (20:36)
[2018-01-22] MEDS: Nicotine Patch Removal NOTE PATCH OFF SCH (20:49)
[2018-01-22] MEDS ORDERED: Esmolol 10 MG/ML IVPREMIX* 2,500 MG/250 ML BAG IVPB ONE (21:02)
[2018-01-22] MEDS ORDERED: ZOSYN 3.375 GM x ONE DOSE over 30 miuntes IVPB ×2 (22:30)
[2018-01-22] MEDS: Esmolol DRIP* 10 MG/ML 250 ML BAG IVPB SCH (22:39)
[2018-01-22] MEDS ORDERED: Zosyn per Pharmacy* NOTE FOLLOW UP PRN (23:11)
[2018-01-23] MEDS: ZOSYN 3.375 GM Q8H per EXTENDED INFUSION IVPB SCH ×6 (02:09→17:40)
[2018-01-23] MEDS: Esmolol DRIP* 10 MG/ML 250 ML BAG IVPB SCH ×3 (02:20→08:48)
[2018-01-23] MEDS: LORazepam INJ* 2 MG/ML 1 ML VIAL IM SCH ×3 (04:31→10:50)
[2018-01-23 05:31] LABS: ABS Basophils 0 10^3/ul (0-0.2); ABS Eosinophils 0.1 10^3/ul (0-0.6); ABS Lymphocytes 0.8 10^3/ul (1.0-4.8); ABS Monocytes 0.9 10^3/ul (0-0.8); ABS Neutrophils 7.5 10^3/ul (1.5-7.7); ABS Nucleated RBC 0 10^3/ul; Eosinophil % 0.6 % (0-6); Hematocrit 23 % (42-52); Hemoglobin 7.9 g/dl (14.0-18.0); Lymphocyte % 8.2 % (25-47); Mean Corpuscular HGB Conc 35 g/dl (31-36); Mean Corpuscular Hemoglobin 31 pg (27-31); Mean Corpuscular Volume 90 fL (80-94); Mean Platelet Volume 8.5 fL (7.4-10.4); Nucleated Red Blood Cells % 0.1; Platelet Count 89 10^3/ul (150-450); Red Blood Count 2.52 10^6/ul (4.00-5.40); Red Cell Distribution Width 18 % (10.5-15); White Blood Count 9.2 10^3/ul (3.5-10.8)
[2018-01-23 05:48] LABS: EGFR Non-African American 124.4 (>60)
[2018-01-23] MEDS ORDERED: Scopolamine PATCH Remove* 1 NOTE MISC PATCH OFF ONE (06:26)
[2018-01-23] MEDS: Ropivacaine 0.2% EPIDURAL* 200 MG/100 ML BAG EPIDURAL SCH (07:49)
[2018-01-23] MEDS ORDERED: LORazepam INJ* 2 MG/ML 1 ML VIAL IV PUSH ONE (08:22)
[2018-01-23] MEDS ORDERED: Furosemide IV* 10 MG/ML 2 ML VIAL (20 MG) IV ONE (08:53)
--- NOTE | 2018-01-23 08:56 | PN ---
Date of Service: 01/23/18 Critical Care Services: 57M with htn, hepatitis, smoker, etoh abuse presents with postoperative bleeding and hypotension after RUL lobectomy for moderately differentiated adenocarcinoma 01/22: hgb stable. chest tube output decreasing. cxr reviewed from this am. Has significant atelectasis on the right. SubQ emphyesema present. Chest tube in place. LEANN drain not seen. 01/23: episodes of SVT yesterday and started on esmolol gtt. becoming delirious. CXR with pneumothorax today. Continued airleak in chest tube. Worsening SQ emphysema. Vital Signs: Temp Pulse Resp BP SpO2 FiO2 98.2 F 77 18 165/82 94 01/23/18 08:00 01/23/18 08:01 01/23/18 08:27 01/23/18 08:00 01/23/18 08:01 Physical Exam: Gen - asleep, nad heent - ncat, eomi, perrl neck - no jvd cv - s1/s2, no murmur chest - +crepitus lungs - cta, dec bs at right apex, +right sided chest tube, +air leak abd - soft, nt, nd ext - no cce neuro - non focal Fluid Balance (Past 24 Hours): I= O= Net Intake & Output 01/21/18 01/22/18 01/23/18 01/24/18 06:59 06:59 06:59 06:59 Intake Total 8216.4 4536 5110.7 Output Total 3280 2836 1675 250 Balance 4936.4 1700 3435.7 -250 Weight 71.804 kg 98.7 kg 76.793 kg Intake: IV Fluids 6611.4 3025 2733.9 HETASTARCH 500 LR 5010 2832 2288 NS (0.9%) 1051.4 193 345.9 NS 50ML, Cefazolin 2G 50 magnesium sulfate 100 IVPB 115 220 ABX - ZOSYN 195 magnesium sulfate 115 25 Medicated IV 500 506.8 CC - Esmolol/Breviblock 506.8 Hetastarch 500 Oral 1110 1650 Packed Cells 905 286 Platelets 200 Output: LEANN #1 100 Chest Tube #1 2680 1771 520 Urine 875 250 Hilton 600 1065 180 Other: Date of Last Bowel 01/22/18 Movement # Bowel Movements 1 Estimated Stool Amount Large Labs: Laboratory Results - last 24 hr 01/20/18 01/22/18 01/22/18 20:04 12:15 12:15 WBC 11.6 H RBC 2.84 L Hgb 8.7 L Hct 26 L MCV 90 MCH 31 MCHC 34 RDW 19 H Plt Count 92 L MPV 9.1 Neut % (Auto) 81.3 Lymph % (Auto) 9.7 L [place] % (Auto) 8.6 H Eos % (Auto) 0.1 Baso % (Auto) 0.3 Absolute Neuts (auto) 9.4 H Absolute Lymphs (auto) 1.1 Absolute Monos (auto) 1.0 H Absolute Eos (auto) 0 Absolute Basos (auto) 0 Absolute Nucleated RBC 0 Nucleated RBC % 0 Sodium Potassium Chloride Carbon Dioxide Anion Gap BUN Creatinine Est GFR ( Amer) Est GFR (Non-Af Amer) BUN/Creatinine Ratio Glucose Calcium Magnesium 2.3 Blood Type Antibody Screen Crossmatch See Detail 01/23/18 01/23/18 01/23/18 05:10 05:10 05:10 WBC 9.2 RBC 2.52 L Hgb 7.9 L Hct 23 L MCV 90 MCH 31 MCHC 35 RDW 18 H Plt Count 89 L MPV 8.5 Neut % (Auto) 81.7 Lymph % (Auto) 8.2 L [place] % (Auto) 9.3 H Eos % (Auto) 0.6 Baso % (Auto) 0.2 Absolute Neuts (auto) 7.5 Absolute Lymphs (auto) 0.8 L Absolute Monos (auto) 0.9 H Absolute Eos (auto) 0.1 Absolute Basos (auto) 0 Absolute Nucleated RBC 0 Nucleated RBC % 0.1 Sodium 131 L Potassium 4.2 Chloride 103 Carbon Dioxide 25 Anion Gap 3 BUN 12 Creatinine 0.66 L Est GFR ( Amer) 150.5 Est GFR (Non-Af Amer) 124.4 BUN/Creatinine Ratio 18.2 Glucose 112 H Calcium 7.5 L Magnesium 1.5 L Blood Type B Positive Antibody Screen Negative Crossmatch Studies: CXR 01/23 #. In addition to fluid in the RIGHT post partial pneumonectomy space the current exam more clearly demonstrates pneumothorax increased over the prior exam concerning for ongoing air leak. #. New patchy airspace consolidation at the LEFT lung. #. Probable pulmonary vascular congestion; correlate with clinical assessment. CXR 01/22 IMPRESSION: #. Unchanged apical position of the RIGHT chest tube. #. Interval improvement in atelectasis within the residual RIGHT lung. CXR 01/21 IMPRESSION: #. Large bore chest tube in place with the tip at the level of the second posterior intercostal space similar to the 2 on the exam of one day prior. Impression: 57M with htn, hepatitis, smoker, etoh abuse presents with postoperative bleeding and hypotension after RUL lobectomy for moderately differentiated adenocarcinoma. Plan: Neuro - pain control - ICU delirium vs withdrawal - start precedex gtt - ativan prn - redirect prn CV - hypotension, svt - hypotenion 2/2 hemorrhage - now improved - needed esmolol for svt - weaning - 20 iv lasix for volume overload - tte without significant abnormality Pulm - s/p RUL lobectomy - chest tube in place - +air leak - output slowing - cxr with pneumothorax today - repeat cxr in afternoon - incentive spirometry - chest pt ID - febrile yesterday - new left sided infiltrate - started on zosyn - blood cultures sent GI - advance diet as tolerated Renal - monitor i/o - monitor lytes - replete mag Heme - hemorrhage - hgb drifiting down - monitor cbc - repeat cbc at noon - transfuse prn - heme/onc following Endo - check fs, niss Lines - RIJ TLC PPx - gi/dvt Full Code Critical Care Time: 50 mins
[2018-01-23] MEDS ORDERED: Dexmedetomidine* 400 MCG in NS 0.9% 100 ML* 96 ML IVPB SCH ×4 (09:00)
[2018-01-23] MEDS ORDERED: Magnesium Sulfate IV* 3 GM in NS 0.9% 100 ML* 100 ML IVPB ONE (09:00)
[2018-01-23] MEDS: Metoprolol Succinate XL TAB* 100 MG PO SCH ×2 (09:00→09:34)
[2018-01-23] MEDS ORDERED: Haloperidol INJ IV/IM* 5 MG/ML AMP IV SLOW PU PRN (09:51)
[2018-01-23] MEDS: Gabapentin CAP(*) 300 MG PO SCH ×3 (10:13→21:15)
[2018-01-23] MEDS: Folic Acid TAB* 1 MG PO SCH (10:13)
[2018-01-23] MEDS: Multivitamins/Minerals TAB PO SCH (10:13)
[2018-01-23] MEDS: Thiamine TAB* 100 MG TAB PO SCH (10:14)
[2018-01-23] MEDS ORDERED: Haloperidol INJ IV/IM* 5 MG/ML AMP ONE (10:28)
--- NOTE | 2018-01-23 10:56 | PN ---
Progress Note - Progress Note Date of Service: 01/23/18 Note: Surgery Progress Note Patient is a 57 yo M POD 3 from thoracotomy, right upper lobectomy for adenocarcinoma. His post operative course was complicated by high chest tube output and declining Hct requiring POD 0 reexploration, during which time no definitive bleeding was identified. Yesterday patient was doing well. He was oriented, chest tube output had dropped to 30-40cc/hour, Hct was stable and he remained hemodynamically stable. Maloney and a line were removed and patient initiated a regular diet. By late afternoon yesterday patient developed SVT, was placed on esmolol gtt. He spiked a fever to 101.4 at 8pm. Patient was judge-cultured and started empirically on zosyn. This morning he developed altered mental status and delirium, requiring 2 point restraint. He was started on precedex gtt. Objective: Vital Signs - 24 hr 01/22/18 01/22/18 01/22/18 10:45 10:46 11:00 Temperature Pulse Rate 81 90 77 Respiratory 18 19 13 Rate Blood Pressure 147/80 149/79 (mmHg) O2 Sat by Pulse 93 91 90 Oximetry 01/22/18 01/22/18 01/22/18 11:01 11:15 11:16 Temperature Pulse Rate 76 90 81 Respiratory 19 19 19 Rate Blood Pressure 156/80 (mmHg) O2 Sat by Pulse 91 91 92 Oximetry 01/22/18 01/22/18 01/22/18 11:30 11:31 11:45 Temperature 99 F Pulse Rate 85 78 75 Respiratory 16 12 19 Rate Blood Pressure 137/79 113/76 (mmHg) O2 Sat by Pulse 89 90 90 Oximetry 01/22/18 01/22/18 01/22/18 11:46 12:00 12:01 Temperature Pulse Rate 76 74 74 Respiratory 17 12 15 Rate Blood Pressure 152/72 (mmHg) O2 Sat by Pulse 88 96 95 Oximetry 01/22/18 01/22/18 01/22/18 12:15 12:16 12:30 Temperature Pulse Rate 80 76 73 Respiratory 10 12 16 Rate Blood Pressure 153/77 144/76 (mmHg) O2 Sat by Pulse 96 97 97 Oximetry 01/22/18 01/22/18 01/22/18 12:31 12:45 12:46 Temperature Pulse Rate 75 77 76 Respiratory 10 19 11 Rate Blood Pressure 159/81 (mmHg) O2 Sat by Pulse 97 96 96 Oximetry 01/22/18 01/22/18 01/22/18 13:00 13:01 13:15 Temperature Pulse Rate 88 82 113 Respiratory 14 16 27 Rate Blood Pressure 165/78 (mmHg) O2 Sat by Pulse 95 95 81 Oximetry 01/22/18 01/22/18 01/22/18 13:30 13:31 13:45 Temperature Pulse Rate 91 90 88 Respiratory 12 10 10 Rate Blood Pressure 133/78 146/84 (mmHg) O2 Sat by Pulse 91 92 93 Oximetry 01/22/18 01/22/18 01/22/18 13:46 14:00 14:01 Temperature Pulse Rate 89 107 106 Respiratory 10 14 13 Rate Blood Pressure 147/85 (mmHg) O2 Sat by Pulse 93 94 92 Oximetry 01/22/18 01/22/18 01/22/18 14:15 14:30 14:31 Temperature Pulse Rate 99 123 108 Respiratory 18 23 20 Rate Blood Pressure 139/82 152/106 (mmHg) O2 Sat by Pulse 94 94 94 Oximetry 01/22/18 01/22/18 01/22/18 14:45 14:46 15:00 Temperature Pulse Rate 101 105 100 Respiratory 14 13 15 Rate Blood Pressure 155/81 164/84 (mmHg) O2 Sat by Pulse 95 96 95 Oximetry 01/22/18 01/22/18 01/22/18 15:01 15:15 15:16 Temperature 98.9 F Pulse Rate 98 103 99 Respiratory 8 14 12 Rate Blood Pressure 152/87 (mmHg) O2 Sat by Pulse 96 96 96 Oximetry 01/22/18 01/22/18 01/22/18 15:30 15:31 15:41 Temperature Pulse Rate 87 100 98 Respiratory 11 14 10 Rate Blood Pressure 143/78 151/82 (mmHg) O2 Sat by Pulse 97 97 95 Oximetry 01/22/18 01/22/18 01/22/18 15:45 15:46 15:56 Temperature Pulse Rate 83 97 95 Respiratory 8 11 10 Rate Blood Pressure 138/72 151/86 (mmHg) O2 Sat by Pulse 96 92 97 Oximetry 01/22/18 01/22/18 01/22/18 16:00 16:01 16:15 Temperature Pulse Rate 94 105 86 Respiratory 18 14 10 Rate Blood Pressure 154/118 142/79 (mmHg) O2 Sat by Pulse 94 96 96 Oximetry 01/22/18 01/22/1818 16:16 16:26 16:30 Temperature Pulse Rate 107 96 90 Respiratory 19 10 12 Rate Blood Pressure 141/80 125/80 (mmHg) O2 Sat by Pulse 94 94 97 Oximetry 01/22/1818 18 16:31 16:45 16:46 Temperature Pulse Rate 86 84 82 Respiratory 9 10 9 Rate Blood Pressure 145/85 (mmHg) O2 Sat by Pulse 97 97 97 Oximetry 01/22/18 01/22/18 01/22/18 17:00 17:01 17:15 Temperature Pulse Rate 86 86 84 Respiratory 10 10 11 Rate Blood Pressure 157/82 161/79 (mmHg) O2 Sat by Pulse 97 98 97 Oximetry 01/22/18 01/22/18 01/22/18 17:16 17:30 17:31 Temperature Pulse Rate 84 85 84 Respiratory 10 11 13 Rate Blood Pressure 158/80 (mmHg) O2 Sat by Pulse 97 96 96 Oximetry 01/22/18 01/22/18 01/22/18 17:45 17:46 18:00 Temperature Pulse Rate 85 86 88 Respiratory 13 13 15 Rate Blood Pressure 164/90 (mmHg) O2 Sat by Pulse 99 99 97 Oximetry 01/22/18 01/22/18 01/22/18 18:01 18:15 18:16 Temperature Pulse Rate 86 87 85 Respiratory 20 14 17 Rate Blood Pressure 164/95 182/84 (mmHg) O2 Sat by Pulse 95 94 93 Oximetry 01/22/18 01/22/1818 18:30 18:31 18:45 Temperature Pulse Rate 84 85 88 Respiratory 14 18 15 Rate Blood Pressure 167/108 (mmHg) O2 Sat by Pulse 93 95 94 Oximetry 01/22/18 01/22/18 01/22/18 18:46 19:00 19:01 Temperature Pulse Rate 93 90 90 Respiratory 15 13 16 Rate Blood Pressure 167/97 175/81 (mmHg) O2 Sat by Pulse 90 95 95 Oximetry 01/22/18 01/22/1818 19:15 19:30 19:31 Temperature Pulse Rate 100 97 93 Respiratory 17 15 14 Rate Blood Pressure 166/88 149/81 (mmHg) O2 Sat by Pulse 93 92 94 Oximetry 11/18/18 11/18/18 11/18/18 19:45 19:46 20:00 Temperature 101.4 F Pulse Rate 103 109 105 Respiratory 16 15 13 Rate Blood Pressure 145/76 132/91 (mmHg) O2 Sat by Pulse 94 94 96 Oximetry 01/22/18 01/22/18 01/22/18 20:01 20:15 20:16 Temperature Pulse Rate 101 98 101 Respiratory 15 14 15 Rate Blood Pressure 131/73 (mmHg) O2 Sat by Pulse 95 97 95 Oximetry 01/22/18 01/22/18 01/22/18 20:26 20:30 20:31 Temperature Pulse Rate 99 86 99 Respiratory 17 16 15 Rate Blood Pressure 131/90 117/72 (mmHg) O2 Sat by Pulse 97 97 96 Oximetry 01/22/18 01/22/18 01/22/18 20:45 20:46 20:59 Temperature Pulse Rate 121 99 92 Respiratory 16 15 13 Rate Blood Pressure 144/93 138/68 (mmHg) O2 Sat by Pulse 95 96 98 Oximetry 01/22/18 01/22/18 01/22/18 21:00 21:01 21:15 Temperature Pulse Rate 85 90 92 Respiratory 13 18 14 Rate Blood Pressure 126/87 124/63 (mmHg) O2 Sat by Pulse 98 98 99 Oximetry 01/22/18 01/22/18 01/22/18 21:16 21:30 21:31 Temperature Pulse Rate 90 87 85 Respiratory 15 14 12 Rate Blood Pressure 128/73 (mmHg) O2 Sat by Pulse 98 96 97 Oximetry 01/22/18 01/22/18 01/22/18 21:45 22:00 22:01 Temperature 99.9 F Pulse Rate 88 81 84 Respiratory 14 14 14 Rate Blood Pressure (mmHg) O2 Sat by Pulse 95 94 94 Oximetry 01/22/18 01/22/18 01/22/18 22:02 22:15 22:16 Temperature Pulse Rate 83 81 81 Respiratory 16 14 15 Rate Blood Pressure 120/75 130/66 (mmHg) O2 Sat by Pulse 91 97 99 Oximetry 01/22/18 01/22/18 01/22/18 22:30 22:31 22:45 Temperature Pulse Rate 78 78 79 Respiratory 13 12 14 Rate Blood Pressure 133/70 128/68 (mmHg) O2 Sat by Pulse 99 98 97 Oximetry 01/22/18 01/22/18 01/22/18 22:46 23:00 23:01 Temperature Pulse Rate 79 77 76 Respiratory 17 21 15 Rate Blood Pressure 132/77 (mmHg) O2 Sat by Pulse 98 98 99 Oximetry 01/22/18 01/22/18 01/22/18 23:02 23:15 23:16 Temperature Pulse Rate 77 79 75 Respiratory 16 16 16 Rate Blood Pressure 124/75 (mmHg) O2 Sat by Pulse 99 97 97 Oximetry 01/22/18 01/22/18 01/22/18 23:20 23:30 23:31 Temperature 99.1 F Pulse Rate 76 77 Respiratory 15 15 18 Rate Blood Pressure 131/69 (mmHg) O2 Sat by Pulse 100 99 100 Oximetry 01/22/18 01/22/18 01/22/18 23:45 23:46 23:50 Temperature Pulse Rate 72 72 Respiratory 14 14 Rate Blood Pressure 129/71 (mmHg) O2 Sat by Pulse 99 100 100 Oximetry 01/23/18 01/23/18 01/23/18 00:00 00:01 00:15 Temperature Pulse Rate 72 73 98 Respiratory 16 17 16 Rate Blood Pressure 138/73 (mmHg) O2 Sat by Pulse 100 100 99 Oximetry 01/23/18 01/23/18 01/23/18 00:16 00:30 00:31 Temperature Pulse Rate 74 71 70 Respiratory 15 16 16 Rate Blood Pressure 154/71 126/79 (mmHg) O2 Sat by Pulse 99 98 97 Oximetry 01/23/18 01/23/18 01/23/18 00:45 00:46 00:50 Temperature Pulse Rate 73 80 Respiratory 14 18 19 Rate Blood Pressure 106/55 (mmHg) O2 Sat by Pulse 96 98 Oximetry 01/23/18 01/23/18 01/23/18 01:00 01:01 01:15 Temperature Pulse Rate 89 83 Respiratory 16 19 16 Rate Blood Pressure 116/68 (mmHg) O2 Sat by Pulse 97 94 Oximetry 01/23/18 01/23/18 01/23/18 01:16 01:30 01:31 Temperature Pulse Rate 82 78 74 Respiratory 14 16 15 Rate Blood Pressure 111/67 86/57 (mmHg) O2 Sat by Pulse 94 100 98 Oximetry 01/23/18 01/23/18 01/23/18 01:32 01:45 02:00 Temperature Pulse Rate 75 73 Respiratory 15 16 20 Rate Blood Pressure 96/70 114/65 (mmHg) O2 Sat by Pulse 96 99 96 Oximetry 01/23/18 01/23/18 01/23/18 02:02 02:07 02:15 Temperature Pulse Rate 71 70 71 Respiratory 15 15 16 Rate Blood Pressure 84/48 107/65 114/74 (mmHg) O2 Sat by Pulse 97 97 97 Oximetry 01/23/18 01/23/18 01/23/18 02:16 02:30 02:31 Temperature Pulse Rate 70 72 69 Respiratory 16 13 14 Rate Blood Pressure 97/62 (mmHg) O2 Sat by Pulse 98 99 100 Oximetry 01/23/18 01/23/18 01/23/18 02:45 02:46 03:00 Temperature Pulse Rate 70 69 70 Respiratory 15 20 18 Rate Blood Pressure 109/67 123/61 (mmHg) O2 Sat by Pulse 100 97 98 Oximetry 01/23/18 01/23/18 01/23/18 03:01 03:15 03:16 Temperature Pulse Rate 69 71 68 Respiratory 19 15 17 Rate Blood Pressure 114/65 (mmHg) O2 Sat by Pulse 100 98 99 Oximetry 01/23/18 01/23/18 01/23/18 03:30 03:31 03:45 Temperature Pulse Rate 73 71 73 Respiratory 17 17 21 Rate Blood Pressure 139/75 (mmHg) O2 Sat by Pulse 97 98 95 Oximetry 01/23/18 01/23/18 01/23/18 03:46 04:00 04:01 Temperature 98.8 F Pulse Rate 71 68 69 Respiratory 18 17 21 Rate Blood Pressure 115/70 138/69 (mmHg) O2 Sat by Pulse 96 99 99 Oximetry 01/23/18 01/23/18 01/23/18 04:15 04:16 04:30 Temperature Pulse Rate 68 70 68 Respiratory 15 19 16 Rate Blood Pressure 116/80 (mmHg) O2 Sat by Pulse 98 98 98 Oximetry 01/23/18 01/23/18 01/23/18 04:31 04:45 04:46 Temperature Pulse Rate 67 67 69 Respiratory 16 16 15 Rate Blood Pressure 128/67 131/70 (mmHg) O2 Sat by Pulse 98 97 97 Oximetry 01/23/18 01/23/18 01/23/18 04:54 05:00 05:15 Temperature Pulse Rate 69 71 Respiratory 19 17 21 Rate Blood Pressure 136/62 (mmHg) O2 Sat by Pulse 97 97 Oximetry 01/23/18 01/23/18 01/23/18 05:16 05:30 05:39 Temperature Pulse Rate 70 71 Respiratory 19 20 18 Rate Blood Pressure 158/66 152/78 (mmHg) O2 Sat by Pulse 97 98 98 Oximetry 01/23/18 01/23/18 01/23/18 05:40 05:44 05:45 Temperature Pulse Rate Respiratory 17 20 19 Rate Blood Pressure 145/61 157/78 (mmHg) O2 Sat by Pulse Oximetry 01/23/18 01/23/18 01/23/18 05:46 05:49 06:00 Temperature Pulse Rate 69 Respiratory 16 17 19 Rate Blood Pressure (mmHg) O2 Sat by Pulse 94 Oximetry 01/23/18 01/23/18 01/23/18 06:02 06:15 06:17 Temperature Pulse Rate 72 72 72 Respiratory 20 18 21 Rate Blood Pressure 150/72 149/49 (mmHg) O2 Sat by Pulse 95 97 96 Oximetry 01/23/18 01/23/18 01/23/18 06:30 06:37 06:45 Temperature Pulse Rate 69 71 73 Respiratory 19 17 26 Rate Blood Pressure 151/80 (mmHg) O2 Sat by Pulse 96 96 94 Oximetry 01/23/18 01/23/18 01/23/18 06:46 07:00 07:01 Temperature Pulse Rate 74 76 74 Respiratory 23 25 19 Rate Blood Pressure 156/85 (mmHg) O2 Sat by Pulse 90 95 95 Oximetry 01/23/18 01/23/18 01/23/18 07:15 07:16 07:30 Temperature Pulse Rate 76 79 75 Respiratory 25 25 22 Rate Blood Pressure (mmHg) O2 Sat by Pulse 95 93 94 Oximetry 01/23/18 01/23/18 01/23/18 07:31 07:45 07:47 Temperature Pulse Rate 77 73 73 Respiratory 19 24 22 Rate Blood Pressure 162/68 (mmHg) O2 Sat by Pulse 94 93 92 Oximetry 01/23/18 01/23/18 01/23/18 08:00 08:01 08:27 Temperature 98.2 F Pulse Rate 77 77 Respiratory 21 21 18 Rate Blood Pressure 165/82 (mmHg) O2 Sat by Pulse 93 94 Oximetry Intake & Output 01/22/18 01/23/18 01/23/18 22:59 06:59 14:59 Intake Total 1199.8 957 Output Total 390 860 250 Balance 809.8 97 -250 Weight 169 lb 4.8 oz Intake: IV Fluids 1048 292 LR 917 226 NS (0.9%) 131 66 IVPB 25 195 ABX - ZOSYN 195 magnesium sulfate 25 Medicated IV 36.8 470 CC - Esmolol/Breviblock 36.8 470 Oral 90 Output: Chest Tube #1 90 285 Urine 300 575 250 Other: Date of Last Bowel 01/22/18 Movement # Bowel Movements 1 Estimated Stool Amount Large Laboratory Results - last 24 hr 01/20/18 01/22/18 01/22/18 20:04 12:15 12:15 WBC 11.6 H RBC 2.84 L Hgb 8.7 L Hct 26 L MCV 90 MCH 31 MCHC 34 RDW 19 H Plt Count 92 L MPV 9.1 Neut % (Auto) 81.3 Lymph % (Auto) 9.7 L [place] % (Auto) 8.6 H Eos % (Auto) 0.1 Baso % (Auto) 0.3 Absolute Neuts (auto) 9.4 H Absolute Lymphs (auto) 1.1 Absolute Monos (auto) 1.0 H Absolute Eos (auto) 0 Absolute Basos (auto) 0 Absolute Nucleated RBC 0 Nucleated RBC % 0 Sodium Potassium Chloride Carbon Dioxide Anion Gap BUN Creatinine Est GFR ( Amer) Est GFR (Non-Af Amer) BUN/Creatinine Ratio Glucose Calcium Magnesium 2.3 Blood Type Antibody Screen Crossmatch See Detail 01/23/18 01/23/18 01/23/18 05:10 05:10 05:10 WBC 9.2 RBC 2.52 L Hgb 7.9 L Hct 23 L MCV 90 MCH 31 MCHC 35 RDW 18 H Plt Count 89 L MPV 8.5 Neut % (Auto) 81.7 Lymph % (Auto) 8.2 L [place] % (Auto) 9.3 H Eos % (Auto) 0.6 Baso % (Auto) 0.2 Absolute Neuts (auto) 7.5 Absolute Lymphs (auto) 0.8 L Absolute Monos (auto) 0.9 H Absolute Eos (auto) 0.1 Absolute Basos (auto) 0 Absolute Nucleated RBC 0 Nucleated RBC % 0.1 Sodium 131 L Potassium 4.2 Chloride 103 Carbon Dioxide 25 Anion Gap 3 BUN 12 Creatinine 0.66 L Est GFR ( Amer) 150.5 Est GFR (Non-Af Amer) 124.4 BUN/Creatinine Ratio 18.2 Glucose 112 H Calcium 7.5 L Magnesium 1.5 L Blood Type B Positive Antibody Screen Negative Crossmatch Chest tube: 285cc x 12 hours overnight UOP: 1055 cc Antibiotics: zosyn Gtt: precedex @ 0.7mcg/kg/min esmolol 75 mcg/kg/min Physical exam: General: disoriented, rolling around on bed with hands in restraints Resp: decreased lung sounds, crackles bilaterally Chest: crepitus palpable across right chest wall, incision c/d/i with michelle, no drainage or erythema, small amount of bruising. LEANN s/s fluid with some leakage around tubing. Chest tube in place with s/s output, + air leak Imaging: CXR 01/23 reviewed: clearer PTX on right, new patchy consolidation on left lung A/P: 57 M POD 3 from right upper lobectomy, reexploration with altered mental status Neuro- AMS, acutely delirious. Continue precedex gtt. Patient has a history of heavy alcohol consumption. On [place] protocol. However, delirium could also be from acute infection. Patient with recent fever and new left sided consolidation. Continue restraints and safety precautions. CV: SVT, on esmolol gtt. HR in 80-90s now, per ICU weaning this to off to be replaced with metoprolol pushes Resp: Post op RUL, small PTX on right, consolidation on left. PTX on right likely post op changes, as upper pleural cavity might not entirely fill after RU lobectomy. Patient still has small air leak regardless. Will continue chest tube on suction. Patient also received multiple blood products, resuscitation on POD 0/1 when Hct was declining. IVF dropped to 50cc/hour yesterday. Now all IVF off and patient is being diuresed, just received 20cc IV lasix ID: fever, WBC normal. Etiology can include atelectasis, new consolidation on left. FU cultures and continue empiric zosyn : Replace maloney for closer I/O monitoring Heme: Hct has been stable, however this morning Hct 26--> 23. Chest tube output not bloody, all fluid in tubing looks serosanguinous. Recheck Hct today and tranfuse a needed.
[2018-01-23] MEDS ORDERED: Succinylcholine* 20 MG/ML 10 ML VIAL ONE (11:28)
[2018-01-23] MEDS ORDERED: Etomidate* 2 MG/ML 20 ML VIAL (40 MG) ONE (11:28)
[2018-01-23] MEDS ORDERED: Propofol* 100 ML ONE (11:29)
[2018-01-23] MEDS ORDERED: Acetaminophen ADULT LIQ* 650 MG/20.3 ML UDC PO PRN (11:40)
--- NOTE | 2018-01-23 11:47 | OP ---
Operative Report - Blank - Operative Report Date of Operation: 01/23/18 Note: Endotracheal Intubation Date: 01/23/18 Time: 1130a Indication: Etoh withdrawal and inability to protect airway Attending: Rod Diallo time-out was completed verifying correct patient, procedure, site, positioning , and special equipment if applicable. The patient was placed in a flat position. Sedation was obtained using with Etomidate 20mg. The patient was easily ventilated using an ambu bag. The GLIDESCOPE MAC 4 BLADE was used and inserted into the oropharynx at which time there was a Grade 1 view of the vocal cords. A 7.5-vietnamese endotracheal tube was inserted and visualized going through the vocal cords. The stylette was removed. Colorimetric change was visualized on the CO2 meter. Breath sounds were heard in both lung stafford equally. The endotracheal tube was placed at 25 cm, measured at the teeth. A chest x-ray was ordered to assess for pneumothorax and verify endotracheal tube placement. Estimated Blood Loss: None The patient tolerated the procedure well and there were no complications.
[2018-01-23] MEDS: fentaNYL PCA* 20 ML PCA SCH (12:12)
[2018-01-23] MEDS: Norepinephrine VIAL* 4 MG in NS 0.9% 250 ML* 246 ML IVPB SCH (12:32)
[2018-01-23 13:20] LABS: ABS Basophils 0 10^3/ul (0-0.2); ABS Eosinophils 0 10^3/ul (0-0.6); ABS Lymphocytes 0.4 10^3/ul (1.0-4.8); ABS Monocytes 0.6 10^3/ul (0-0.8); ABS Neutrophils 7.4 10^3/ul (1.5-7.7); ABS Nucleated RBC 0 10^3/ul; Eosinophil % 0.1 % (0-6); Hematocrit 20 % (42-52); Lymphocyte % 4.6 % (25-47); Mean Corpuscular HGB Conc 35 g/dl (31-36); Mean Corpuscular Hemoglobin 32 pg (27-31); Mean Corpuscular Volume 90 fL (80-94); Mean Platelet Volume 8.6 fL (7.4-10.4); Nucleated Red Blood Cells % 0.1; Platelet Count 85 10^3/ul (150-450); Red Blood Count 2.24 10^6/ul (4.00-5.40); Red Cell Distribution Width 18 % (10.5-15); White Blood Count 8.4 10^3/ul (3.5-10.8)
[2018-01-23] MEDS ORDERED: Senna TAB PO PRN (14:46)
[2018-01-23] MEDS: Propofol* 100 ML IV SCH (19:42)
[2018-01-23] MEDS: Nicotine PATCH 14 MG/24 HR* PATCH TRANSDERM SCH (20:37)
[2018-01-24] MEDS: Propofol* 100 ML IV SCH ×3 (02:34→20:19)
[2018-01-24] MEDS: ZOSYN 3.375 GM Q8H per EXTENDED INFUSION IVPB SCH ×6 (02:34→17:22)
[2018-01-24] MEDS: fentaNYL PCA* 20 ML PCA SCH ×3 (05:01→22:41)
[2018-01-24 05:24] LABS: ABS Basophils 0 10^3/ul (0-0.2); ABS Eosinophils 0.1 10^3/ul (0-0.6); ABS Lymphocytes 0.7 10^3/ul (1.0-4.8); ABS Monocytes 1.4 10^3/ul (0-0.8); ABS Neutrophils 9.2 10^3/ul (1.5-7.7); ABS Nucleated RBC 0 10^3/ul; Eosinophil % 0.9 % (0-6); Hematocrit 23 % (42-52); Lymphocyte % 5.8 % (25-47); Mean Corpuscular HGB Conc 34 g/dl (31-36); Mean Corpuscular Hemoglobin 31 pg (27-31); Mean Corpuscular Volume 91 fL (80-94); Mean Platelet Volume 8.5 fL (7.4-10.4); Nucleated Red Blood Cells % 0; Platelet Count 117 10^3/ul (150-450); Red Blood Count 2.57 10^6/ul (4.00-5.40); Red Cell Distribution Width 18 % (10.5-15); White Blood Count 11.3 10^3/ul (3.5-10.8)
[2018-01-24 05:47] LABS: EGFR Non-African American 110.7 (>60)
[2018-01-24] MEDS: Folic Acid TAB* 1 MG PO SCH (07:48)
[2018-01-24] MEDS: Gabapentin CAP(*) 300 MG PO SCH ×3 (07:48→20:51)
[2018-01-24] MEDS: Lansoprazole susp Kit 3 MG/ML (15 MG = 5 ML) PO SCH (07:48)
[2018-01-24] MEDS: Metoprolol Succinate XL TAB* 100 MG PO SCH ×2 (07:48→08:38)
[2018-01-24] MEDS: Thiamine TAB* 100 MG TAB PO SCH (07:49)
[2018-01-24] MEDS: Multivitamins/Minerals TAB PO SCH (07:49)
[2018-01-24] MEDS ORDERED: Magnesium Sulfate IV* 3 GM in NS 0.9% 100 ML* 100 ML IVPB ONE (09:05)
--- NOTE | 2018-01-24 09:18 | PN ---
Date of Service: 01/24/18 Critical Care Services: 57M with htn, hepatitis, smoker, etoh abuse presents with postoperative bleeding and hypotension after RUL lobectomy for moderately differentiated adenocarcinoma 01/22: hgb stable. chest tube output decreasing. cxr reviewed from this am. Has significant atelectasis on the right. SubQ emphyesema present. Chest tube in place. LEANN drain not seen. 01/23: episodes of SVT yesterday and started on esmolol gtt. becoming delirious. CXR with pneumothorax today. Continued airleak in chest tube. Worsening SQ emphysema. 01/24: became increasingly delirious and required intubation and propofol gtt. Vital Signs: Temp Pulse Resp BP SpO2 FiO2 98.8 F 79 14 104/61 100 35 01/24/18 08:00 01/24/18 08:30 01/24/18 07:40 01/24/18 08:30 01/24/18 08:30 01/24 07:25 Physical Exam: Gen - intubated and sedated heent - ncat, perrl neck - no jvd cv - s1/s2, no murmur chest - +crepitus lungs - cta, dec bs at right apex, +right sided chest tube, no air leak abd - soft, nt, nd ext - no cce neuro - non focal Fluid Balance (Past 24 Hours): I= O= Net Intake & Output 01/22/18 01/23/18 01/24/18 01/25/18 06:59 06:59 06:59 06:59 Intake Total 4536 5110.7 1535 Output Total 2836 1675 3355 75 Balance 1700 3435.7 -1820 -75 Weight 98.7 kg 76.793 kg 74.117 kg Intake: IV Fluids 3025 2733.9 275 LR 2832 2288 NS (0.9%) 193 345.9 275 magnesium sulfate 100 IVPB 115 220 187 ABX - ZOSYN 195 187 magnesium sulfate 115 25 Medicated IV 506.8 604 CC - Esmolol/Breviblock 506.8 314 levophed 12 precedex 32 propofol 246 IV Narcotic Infusion 328 Fentanyl 328 Oral 1110 1650 0 Tube Feeding 141 Packed Cells 286 Output: LEANN #1 100 150 Chest Tube #1 1771 520 485 Urine 875 250 [place] 6389 431 9976 75 Other: Date of Last Bowel 01/22/18 Movement # Bowel Movements 1 Estimated Stool Amount Large Labs: Laboratory Results - last 24 hr 01/21/18 01/23/18 01/23/18 09:16 05:10 12:35 WBC 8.4 RBC 2.24 L Hgb 7.0 L Hct 20 L MCV 90 MCH 32 H MCHC 35 RDW 18 H Plt Count 85 L MPV 8.6 Neut % (Auto) 87.9 H Lymph % (Auto) 4.6 L [place] % (Auto) 7.3 H Eos % (Auto) 0.1 Baso % (Auto) 0.1 Absolute Neuts (auto) 7.4 Absolute Lymphs (auto) 0.4 L Absolute Monos (auto) 0.6 Absolute Eos (auto) 0 Absolute Basos (auto) 0 Absolute Nucleated RBC 0 Nucleated RBC % 0.1 Factor VIII Activity TNP Sodium Potassium Chloride Carbon Dioxide Anion Gap BUN Creatinine Est GFR ( Amer) Est GFR (Non-Af Amer) BUN/Creatinine Ratio Glucose Calcium Magnesium Blood Type B Positive Antibody Screen Negative Crossmatch See Detail 01/24/18 01/24/18 05:04 05:04 WBC 11.3 H RBC 2.57 L Hgb 8.0 L Hct 23 L MCV 91 MCH 31 MCHC 34 RDW 18 H Plt Count 117 L MPV 8.5 Neut % (Auto) 81.2 Lymph % (Auto) 5.8 L [place] % (Auto) 12.0 H Eos % (Auto) 0.9 Baso % (Auto) 0.1 Absolute Neuts (auto) 9.2 H Absolute Lymphs (auto) 0.7 L Absolute Monos (auto) 1.4 H Absolute Eos (auto) 0.1 Absolute Basos (auto) 0 Absolute Nucleated RBC 0 Nucleated RBC % 0 Factor VIII Activity Sodium 133 L Potassium 3.4 L Chloride 102 Carbon Dioxide 27 Anion Gap 4 BUN 11 Creatinine 0.73 Est GFR ( Amer) 134.0 Est GFR (Non-Af Amer) 110.7 BUN/Creatinine Ratio 15.1 Glucose 120 H Calcium 7.9 L Magnesium 1.5 L Blood Type Antibody Screen Crossmatch Studies: CXR 01/24 IMPRESSION: Right chest tube in place. Left basilar infiltrate is noted. ET tube and nasogastric tube is in place. CXR 01/23 #. In addition to fluid in the RIGHT post partial pneumonectomy space the current exam more clearly demonstrates pneumothorax increased over the prior exam concerning for ongoing air leak. #. New patchy airspace consolidation at the LEFT lung. #. Probable pulmonary vascular congestion; correlate with clinical assessment. CXR 01/22 IMPRESSION: #. Unchanged apical position of the RIGHT chest tube. #. Interval improvement in atelectasis within the residual RIGHT lung. CXR 01/21 IMPRESSION: #. Large bore chest tube in place with the tip at the level of the second posterior intercostal space similar to the 2 on the exam of one day prior. Impression: 57M with htn, hepatitis, smoker, etoh abuse presents with postoperative bleeding and hypotension after RUL lobectomy for moderately differentiated adenocarcinoma. Etoh withdrawal and delirium. Plan: Neuro - ICU delirium vs withdrawal - propofol gtt - fentanyl gtt CV - hypotension, svt - hypotenion 2/2 hemorrhage - now improved - svt resolved - tte without significant abnormality Pulm - s/p RUL lobectomy - chest tube in place - no air leak today - wean vent as tolerated ID - febrile yesterday - left sided infiltrate - started on zosyn - blood cultures sent GI - tube feeds Renal - monitor i/o - monitor lytes - replete mag, k Heme - hemorrhage - hgb stable - monitor cbc - transfuse to keep hgb > 7 Endo - check fs, niss Lines - RIJ TLC PPx - gi/dvt Full Code Critical Care Time: 50 mins
[2018-01-24] MEDS: Chlorhexidine MOUTHWASH 0.12%* 15 ML UDC TOPICAL SCH ×4 (10:07→20:51)
[2018-01-24] MEDS: Potassium Chloride LIQUID* 20 MEQ PACKET PO SCH ×3 (10:07→17:22)
--- NOTE | 2018-01-24 12:25 | PN ---
Progress Note - Progress Note Date of Service: 01/24/18 Note: Patient had a bad day yesterday. His epidural was pulled out, he was intubated and is on sedation for possible ETOH withdrawl. Currently he appears comforable on the vent. Thanks to the ICU MDs and RNs for their care of this patient.
[2018-01-24] MEDS: Norepinephrine VIAL* 4 MG in NS 0.9% 250 ML* 246 ML IVPB SCH (13:14)
--- NOTE | 2018-01-24 13:54 | PN ---
Progress Note - Progress Note Date of Service: 01/24/18 Note: Surgery Progress Note Patient was examined this morning approximately 8am. S: 57 M POD 4 from thoracotomy, RU lobectomy, reexploration for bleeding. Yesterdays events noted. I examined patient yesterday afternoon and this morning. He received 1 PRBC after Hct dropped to 20 yesterday. Was intubated because of acute delirium and danger to himself, epidural had been dislodged. This morning he is on a propofol gtt, no levophed. Trickle tube feeds started through OGT. Had BM yesterday Objective: Vital Signs - 24 hr 01/23/18 01/23/18 01/23/18 14:00 14:01 14:15 Temperature Pulse Rate 60 59 61 Respiratory 13 Rate Blood Pressure 106/63 103/62 (mmHg) O2 Sat by Pulse 100 100 100 Oximetry 01/23/18 01/23/18 01/23/18 14:16 14:30 14:31 Temperature Pulse Rate 60 60 60 Respiratory Rate Blood Pressure 98/60 (mmHg) O2 Sat by Pulse 100 100 100 Oximetry 01/23/18 01/23/18 01/23/18 14:45 14:46 15:00 Temperature Pulse Rate 59 60 60 Respiratory Rate Blood Pressure 104/62 107/65 (mmHg) O2 Sat by Pulse 100 100 100 Oximetry 01/23/18 01/23/18 01/23/18 15:01 15:15 15:16 Temperature Pulse Rate 60 59 60 Respiratory Rate Blood Pressure 109/63 (mmHg) O2 Sat by Pulse 100 100 100 Oximetry 01/23/18 01/23/18 01/23/18 15:30 15:31 15:45 Temperature Pulse Rate 60 60 60 Respiratory Rate Blood Pressure 114/69 112/67 (mmHg) O2 Sat by Pulse 100 100 100 Oximetry 01/23/18 01/23/18 01/23/18 15:46 15:59 16:00 Temperature 97.8 F Pulse Rate 60 61 Respiratory 13 Rate Blood Pressure 113/67 (mmHg) O2 Sat by Pulse 100 100 100 Oximetry 01/23/18 01/23/18 01/23/18 16:01 16:15 16:16 Temperature Pulse Rate 61 63 62 Respiratory Rate Blood Pressure 138/77 (mmHg) O2 Sat by Pulse 100 100 100 Oximetry 01/23/18 01/23/18 01/23/18 16:30 16:31 16:45 Temperature Pulse Rate 61 61 77 Respiratory Rate Blood Pressure 136/74 126/83 (mmHg) O2 Sat by Pulse 100 100 100 Oximetry 01/23/18 01/23/18 01/23/18 16:46 17:00 17:01 Temperature Pulse Rate 75 64 63 Respiratory Rate Blood Pressure 160/76 148/82 (mmHg) O2 Sat by Pulse 100 100 100 Oximetry 01/23/18 01/23/18 01/23/18 17:02 17:15 17:16 Temperature Pulse Rate 63 66 65 Respiratory Rate Blood Pressure 151/80 (mmHg) O2 Sat by Pulse 100 100 100 Oximetry 01/23/18 01/23/18 01/23/18 17:30 17:31 17:45 Temperature Pulse Rate 66 65 68 Respiratory Rate Blood Pressure 145/75 115/71 (mmHg) O2 Sat by Pulse 100 99 99 Oximetry 01/23/18 01/23/18 01/23/18 17:46 18:00 18:01 Temperature Pulse Rate 67 67 67 Respiratory 13 Rate Blood Pressure 99/64 (mmHg) O2 Sat by Pulse 99 97 97 Oximetry 01/23/18 01/23/18 01/23/18 18:15 18:16 18:30 Temperature Pulse Rate 68 68 68 Respiratory Rate Blood Pressure 119/64 106/66 (mmHg) O2 Sat by Pulse 95 96 95 Oximetry 01/23/18 01/23/18 01/23/18 18:31 18:45 18:46 Temperature Pulse Rate 68 68 68 Respiratory Rate Blood Pressure 107/60 (mmHg) O2 Sat by Pulse 95 94 94 Oximetry 01/23/18 01/23/18 01/23/18 19:00 19:01 19:15 Temperature Pulse Rate 68 68 69 Respiratory 16 Rate Blood Pressure 102/61 114/62 (mmHg) O2 Sat by Pulse 94 93 94 Oximetry 01/23/18 01/23/18 01/23/18 19:16 19:30 19:31 Temperature Pulse Rate 69 68 68 Respiratory Rate Blood Pressure 104/58 (mmHg) O2 Sat by Pulse 94 95 94 Oximetry 01/23/18 01/23/18 01/23/18 19:43 19:45 19:46 Temperature Pulse Rate 68 69 Respiratory 17 Rate Blood Pressure 99/64 (mmHg) O2 Sat by Pulse 96 94 94 Oximetry 01/23/18 01/23/18 01/23/18 20:00 20:01 20:15 Temperature 98.2 F Pulse Rate 68 68 69 Respiratory Rate Blood Pressure 102/64 103/57 (mmHg) O2 Sat by Pulse 94 94 95 Oximetry 01/23/18 01/23/18 01/23/18 20:16 20:30 20:31 Temperature Pulse Rate 67 69 67 Respiratory Rate Blood Pressure 120/69 (mmHg) O2 Sat by Pulse 94 93 93 Oximetry 01/23/18 01/23/18 01/23/18 20:45 20:46 20:52 Temperature Pulse Rate 71 71 Respiratory 17 Rate Blood Pressure 155/74 (mmHg) O2 Sat by Pulse 92 92 Oximetry 01/23/18 01/23/18 01/23/18 21:00 21:01 21:15 Temperature Pulse Rate 70 70 71 Respiratory Rate Blood Pressure 156/68 157/79 (mmHg) O2 Sat by Pulse 92 92 92 Oximetry 01/23/18 01/23/18 01/23/18 21:16 21:30 21:31 Temperature Pulse Rate 71 78 74 Respiratory Rate Blood Pressure 165/101 (mmHg) O2 Sat by Pulse 92 97 97 Oximetry 01/23/18 01/23/18 01/23/18 21:45 21:46 21:57 Temperature Pulse Rate 71 72 Respiratory 17 Rate Blood Pressure 154/72 (mmHg) O2 Sat by Pulse 98 98 97 Oximetry 01/23/18 01/23/18 01/23/18 22:00 22:01 22:15 Temperature Pulse Rate 73 71 71 Respiratory Rate Blood Pressure 138/76 144/74 (mmHg) O2 Sat by Pulse 98 98 99 Oximetry 01/23/18 01/23/18 01/23/18 22:16 22:30 22:31 Temperature Pulse Rate 72 73 73 Respiratory Rate Blood Pressure 146/71 (mmHg) O2 Sat by Pulse 98 97 98 Oximetry 01/23/18 01/23/18 01/23/18 22:45 22:46 23:00 Temperature Pulse Rate 72 74 80 Respiratory 18 Rate Blood Pressure 171/77 149/79 (mmHg) O2 Sat by Pulse 97 96 97 Oximetry 01/23/18 01/23/18 01/23/18 23:01 23:15 23:16 Temperature Pulse Rate 74 80 81 Respiratory Rate Blood Pressure 148/83 (mmHg) O2 Sat by Pulse 97 96 95 Oximetry 01/23/18 01/23/18 01/23/18 23:30 23:31 23:45 Temperature Pulse Rate 80 79 77 Respiratory Rate Blood Pressure 139/74 133/71 (mmHg) O2 Sat by Pulse 96 96 95 Oximetry 01/23/18 01/23/18 01/23/18 23:46 23:48 23:59 Temperature 99.3 F Pulse Rate 75 Respiratory 17 Rate Blood Pressure (mmHg) O2 Sat by Pulse 95 95 Oximetry 01/24/18 01/24/18 01/24/18 00:00 00:01 00:02 Temperature Pulse Rate 75 70 74 Respiratory Rate Blood Pressure 129/63 (mmHg) O2 Sat by Pulse 95 95 95 Oximetry 01/24/18 01/24/18 01/24/18 00:15 00:16 00:30 Temperature Pulse Rate 80 75 78 Respiratory Rate Blood Pressure 124/64 121/63 (mmHg) O2 Sat by Pulse 95 96 96 Oximetry 01/24/18 01/24/18 01/24/18 00:31 00:45 00:46 Temperature Pulse Rate 80 75 85 Respiratory Rate Blood Pressure 118/66 (mmHg) O2 Sat by Pulse 96 96 96 Oximetry 01/24/18 01/24/18 01/24/18 00:52 01:00 01:01 Temperature Pulse Rate 89 84 Respiratory 19 Rate Blood Pressure 112/69 (mmHg) O2 Sat by Pulse 96 96 Oximetry 01/24/18 01/24/18 01/24/18 01:15 01:16 01:29 Temperature Pulse Rate 91 78 Respiratory Rate Blood Pressure 130/73 (mmHg) O2 Sat by Pulse 93 93 96 Oximetry 01/24/18 01/24/18 01/24/18 01:30 01:31 01:45 Temperature Pulse Rate 86 90 94 Respiratory Rate Blood Pressure 130/69 124/67 (mmHg) O2 Sat by Pulse 96 96 96 Oximetry 01/24/18 01/24/18 01/24/18 01:46 02:00 02:01 Temperature Pulse Rate 76 95 84 Respiratory 22 Rate Blood Pressure 138/74 (mmHg) O2 Sat by Pulse 96 94 94 Oximetry 01/24/18 01/24/18 01/24/18 02:15 02:16 02:30 Temperature Pulse Rate 97 97 101 Respiratory Rate Blood Pressure 130/71 138/77 (mmHg) O2 Sat by Pulse 97 96 95 Oximetry 01/24/18 01/24/18 01/24/18 02:40 02:45 02:46 Temperature 102 F Pulse Rate 102 102 98 Respiratory Rate Blood Pressure 155/79 122/75 (mmHg) O2 Sat by Pulse 96 96 97 Oximetry 01/24/18 01/24/18 01/24/18 02:53 02:56 03:00 Temperature Pulse Rate 100 Respiratory 21 Rate Blood Pressure 105/69 97/62 (mmHg) O2 Sat by Pulse 92 Oximetry 01/24/18 01/24/18 01/24/18 03:01 03:15 03:17 Temperature Pulse Rate 96 87 85 Respiratory Rate Blood Pressure 107/82 81/49 84/54 (mmHg) O2 Sat by Pulse 95 98 97 Oximetry 01/24/18 01/24/18 01/24/18 03:19 03:24 03:27 Temperature Pulse Rate 92 91 Respiratory 20 Rate Blood Pressure 83/49 88/52 (mmHg) O2 Sat by Pulse 97 98 98 Oximetry 01/24/18 01/24/18 01/24/18 03:30 03:35 03:36 Temperature 100.5 F Pulse Rate 83 85 Respiratory Rate Blood Pressure 89/57 92/58 (mmHg) O2 Sat by Pulse 98 98 Oximetry 01/24/18 01/24/18 01/24/18 03:45 03:56 04:00 Temperature 100.3 F Pulse Rate 90 90 Respiratory Rate Blood Pressure 102/58 100/61 (mmHg) O2 Sat by Pulse 99 99 Oximetry 01/24/18 01/24/18 01/24/18 04:15 04:30 04:45 Temperature Pulse Rate 87 90 89 Respiratory Rate Blood Pressure 98/58 99/61 105/66 (mmHg) O2 Sat by Pulse 99 99 99 Oximetry 01/24/18 01/24/18 01/24/18 05:00 05:01 05:09 Temperature Pulse Rate 94 Respiratory 20 18 Rate Blood Pressure 95/56 (mmHg) O2 Sat by Pulse 98 Oximetry 01/24/18 01/24/18 01/24/18 05:15 05:16 05:17 Temperature Pulse Rate 87 85 88 Respiratory Rate Blood Pressure 78/50 75/37 73/41 (mmHg) O2 Sat by Pulse 98 97 98 Oximetry 01/24/18 01/24/18 01/24/18 05:19 05:21 05:24 Temperature Pulse Rate 91 86 86 Respiratory Rate Blood Pressure 53/42 75/48 82/54 (mmHg) O2 Sat by Pulse 98 98 100 Oximetry 01/24/18 01/24/18 01/24/18 05:25 05:26 05:28 Temperature Pulse Rate 86 85 84 Respiratory 20 Rate Blood Pressure 84/53 73/48 86/53 (mmHg) O2 Sat by Pulse 99 99 99 Oximetry 01/24/18 01/24/18 01/24/18 05:29 05:31 05:38 Temperature Pulse Rate 86 80 77 Respiratory Rate Blood Pressure 90/57 94/54 84/52 (mmHg) O2 Sat by Pulse 99 99 99 Oximetry 01/24/18 01/24/18 01/24/18 05:45 06:00 06:01 Temperature Pulse Rate 80 78 74 Respiratory Rate Blood Pressure 93/56 106/57 (mmHg) O2 Sat by Pulse 99 100 100 Oximetry 01/24/18 01/24/18 01/24/18 06:15 06:30 06:45 Temperature Pulse Rate 75 75 79 Respiratory Rate Blood Pressure 97/57 98/60 100/59 (mmHg) O2 Sat by Pulse 99 99 100 Oximetry 01/24/18 01/24/18 01/24/18 07:00 07:15 07:21 Temperature Pulse Rate 81 80 Respiratory 12 Rate Blood Pressure 108/57 90/57 (mmHg) O2 Sat by Pulse 100 100 Oximetry 01/24/18 01/24/18 01/24/18 07:30 07:40 07:45 Temperature Pulse Rate 81 82 Respiratory 14 Rate Blood Pressure 96/61 106/60 (mmHg) O2 Sat by Pulse 99 99 99 Oximetry 01/24/18 01/24/18 01/24/18 08:00 08:01 08:15 Temperature 98.8 F Pulse Rate 84 83 84 Respiratory Rate Blood Pressure 104/64 101/66 (mmHg) O2 Sat by Pulse 99 99 99 Oximetry 01/24/18 01/24/18 01/24/18 08:30 08:45 09:00 Temperature Pulse Rate 79 78 78 Respiratory Rate Blood Pressure 104/61 96/59 98/63 (mmHg) O2 Sat by Pulse 100 99 100 Oximetry 01/24/18 01/24/18 01/24/18 09:15 09:30 09:45 Temperature Pulse Rate 75 76 79 Respiratory Rate Blood Pressure 90/60 99/60 99/62 (mmHg) O2 Sat by Pulse 100 100 100 Oximetry 01/24/18 01/24/18 01/24/18 09:50 10:00 10:01 Temperature Pulse Rate 76 77 Respiratory 14 Rate Blood Pressure 103/65 (mmHg) O2 Sat by Pulse 100 100 Oximetry 01/24/18 01/24/18 01/24/18 10:15 10:30 10:41 Temperature Pulse Rate 75 71 Respiratory 20 Rate Blood Pressure 93/59 100/59 (mmHg) O2 Sat by Pulse 100 100 Oximetry 01/24/18 01/24/18 01/24/18 11:00 11:50 11:53 Temperature 98.4 F Pulse Rate 74 Respiratory 14 Rate Blood Pressure 115/61 (mmHg) O2 Sat by Pulse 100 Oximetry 01/24/18 01/24/18 01/24/18 12:00 12:01 13:01 Temperature Pulse Rate 68 68 70 Respiratory Rate Blood Pressure 101/61 131/83 (mmHg) O2 Sat by Pulse 100 100 100 Oximetry 01/24/18 01/24/18 13:07 13:29 Temperature Pulse Rate Respiratory 20 20 Rate Blood Pressure (mmHg) O2 Sat by Pulse Oximetry Intake & Output 01/23/18 01/24/18 01/24/18 22:59 06:59 14:59 Intake Total 680 472 663 Output Total 425 610 442 Balance 255 -138 221 Weight 163 lb 6.4 oz Intake: IV Fluids 154 121 85 NS (0.9%) 154 121 85 IVPB 110 77 238 ABX - ZOSYN 110 77 85 magnesium sulfate 153 Medicated IV 88 133 110 levophed 15 propofol 88 133 95 IV Narcotic Infusion 328 Fentanyl 328 Oral 0 Tube Feeding 141 130 Tube Feeding Flush Amount 100 Output: LEANN #1 50 25 Chest Tube #1 190 100 [place] 425 370 317 Laboratory Results - last 24 hr 01/21/18 01/23/18 01/24/18 09:16 05:10 05:04 WBC RBC Hgb Hct MCV MCH MCHC RDW Plt Count MPV Neut % (Auto) Lymph % (Auto) [place] % (Auto) Eos % (Auto) Baso % (Auto) Absolute Neuts (auto) Absolute Lymphs (auto) Absolute Monos (auto) Absolute Eos (auto) Absolute Basos (auto) Absolute Nucleated RBC Nucleated RBC % Factor V 64 L Factor IX 52 L Factor XI 31 L Sodium 133 L Potassium 3.4 L Chloride 102 Carbon Dioxide 27 Anion Gap 4 BUN 11 Creatinine 0.73 Est GFR ( Amer) 134.0 Est GFR (Non-Af Amer) 110.7 BUN/Creatinine Ratio 15.1 Glucose 120 H Calcium 7.9 L Magnesium 1.5 L Blood Type B Positive Antibody Screen Negative Crossmatch See Detail 01/24/18 05:04 WBC 11.3 H RBC 2.57 L Hgb 8.0 L Hct 23 L MCV 91 MCH 31 MCHC 34 RDW 18 H Plt Count 117 L MPV 8.5 Neut % (Auto) 81.2 Lymph % (Auto) 5.8 L [place] % (Auto) 12.0 H Eos % (Auto) 0.9 Baso % (Auto) 0.1 Absolute Neuts (auto) 9.2 H Absolute Lymphs (auto) 0.7 L Absolute Monos (auto) 1.4 H Absolute Eos (auto) 0.1 Absolute Basos (auto) 0 Absolute Nucleated RBC 0 Nucleated RBC % 0 Factor V Factor IX Factor XI Sodium Potassium Chloride Carbon Dioxide Anion Gap BUN Creatinine Est GFR ( Amer) Est GFR (Non-Af Amer) BUN/Creatinine Ratio Glucose Calcium Magnesium Blood Type Antibody Screen Crossmatch Chest tube: 484cc x 24 hours UOP: 2720 cc LEANN: 150 Antibiotics: zosyn Gtt: propofol Physical exam: General: intubated, sedated Chest: incision c/d/i with michelle, no drainage or erythema, small amount of bruising. LEANN s/s fluid with some leakage around tubing. Chest tube in place with s/s output, no air leak Imaging: CXR 01/24 reviewed: PTX not seen, right lung field appears clearer A/P: 57 M POD 4 from right upper lobectomy, reexploration for bleeding, recently reintubated for AMS Neuro- AMS, acutely delirious. Patient has a history of heavy alcohol consumption. Hopefully can wean to extubate by tomorrow. CV: SVT resolved Resp: Post op RUL, continue chest tube on continuous suction. ID: Fever work up thus far negative. Etiology can include atelectasis, consolidation on left. FU cultures and continue empiric zosyn : Continue close I/O monitoring Heme: Hct improved appropriately after 1 PRBC. Continue to monitor H/H GI: tube feeds for nutrition while intubated
--- NOTE | 2018-01-24 16:01 | PN ---
Progress Note - Progress Note Date of Service: 01/24/18 SOAP: Subjective: Pt seen and examined. Discussed case with CCM. Pt remains intubated. Off pressors. On tube feeds but high residuals earlier today. received 1 u rbcs yesterday. Son at bedside Objective: Temp Pulse Resp BP Pulse Ox 98.4 F 72 14 95/57 100 01/24/18 11:53 01/24/18 15:00 01/24/18 14:58 01/24/18 15:00 01/24/18 15:00 Intake & Output 01/24/18 01/24/18 01/24/18 06:59 14:59 22:59 Intake Total 472 738 Output Total 610 527 40 Balance -138 211 -40 Weight 163 lb 6.4 oz Intubated, sedated neck: crepitance Chest: incision C/D/I crepitance Chest tube: 450cc/24 hr, No airleak abdo: soft/ mild distension/ pos BS Laboratory Last Values WBC 11.3 10^3/ul (3.5-10.8) H 01/24/18 05:04 RBC 2.57 10^6/ul (4.00-5.40) L 01/24/18 05:04 Hgb 8.0 g/dl (14.0-18.0) L 01/24/18 05:04 Hct 23 % (42-52) L 01/24/18 05:04 MCV 91 fL (80-94) 01/24/18 05:04 MCH 31 pg (27-31) 01/24/18 05:04 MCHC 34 g/dl (31-36) 01/24/18 05:04 RDW 18 % (10.5-15) H 01/24/18 05:04 Plt Count 117 10^3/ul (150-450) L 01/24/18 05:04 MPV 8.5 fL (7.4-10.4) 01/24/18 05:04 Neut % (Auto) 81.2 % (38-83) 01/24/18 05:04 Lymph % (Auto) 5.8 % (25-47) L 01/24/18 05:04 [place] % (Auto) 12.0 % (0-7) H 01/24/18 05:04 Eos % (Auto) 0.9 % (0-6) 01/24/18 05:04 Baso % (Auto) 0.1 % (0-2) 01/24/18 05:04 Absolute Neuts (auto) 9.2 10^3/ul (1.5-7.7) H 01/24/18 05:04 Absolute Lymphs (auto) 0.7 10^3/ul (1.0-4.8) L 01/24/18 05:04 Absolute Monos (auto) 1.4 10^3/ul (0-0.8) H 01/24/18 05:04 Absolute Eos (auto) 0.1 10^3/ul (0-0.6) 01/24/18 05:04 Absolute Basos (auto) 0 10^3/ul (0-0.2) 01/24/18 05:04 Absolute Nucleated RBC 0 10^3/ul 01/24/18 05:04 Nucleated RBC % 0 01/24/18 05:04 INR (Anticoag Therapy) 1.11 (0.77-1.02) H 01/21/18 09:16 APTT 31.6 seconds (26.0-36.3) 01/21/18 09:16 Fibrinogen 167.9 mg/dL (110.8-404.3) 01/21/18 09:16 Factor V 64 % (70 - 165) L 01/21/18 09:16 Factor VIII Activity 110 % (55 - 200) 01/21/18 09:16 von Willebrand Activity 177 % (55 - 200) 01/21/18 09:16 von Willebrand Antigen 178 % (55 - 200) 01/21/18 09:16 vWF Panel Interp See comment 01/21/18 09:16 Factor IX 52 % (65 - 140) L 01/21/18 09:16 Factor XI 31 % (55 - 150) L 01/21/18 09:16 Sodium 133 mmol/L (135-145) L 01/24/18 05:04 Potassium 3.4 mmol/L (3.5-5.0) L 01/24/18 05:04 Chloride 102 mmol/L (101-111) 01/24/18 05:04 Carbon Dioxide 27 mmol/L (22-32) 01/24/18 05:04 Anion Gap 4 mmol/L (2-11) 01/24/18 05:04 BUN 11 mg/dL (6-24) 01/24/18 05:04 Creatinine 0.73 mg/dL (0.67-1.17) 01/24/18 05:04 Est GFR ( Amer) 134.0 (>60) 01/24/18 05:04 Est GFR (Non-Af Amer) 110.7 (>60) 01/24/18 05:04 BUN/Creatinine Ratio 15.1 (8-20) 01/24/18 05:04 Glucose 120 mg/dL (70-100) H 01/24/18 05:04 Lactic Acid 2.3 mmol/L (0.5-2.0) H* 01/21/18 10:35 Calcium 7.9 mg/dL (8.6-10.3) L 01/24/18 05:04 Magnesium 1.5 mg/dL (1.9-2.7) L 01/24/18 05:04 Total Bilirubin 0.90 mg/dL (0.2-1.0) 01/20/18 20:04 AST 37 U/L (13-39) 01/20/18 20:04 ALT 14 U/L (7-52) 01/20/18 20:04 Alkaline Phosphatase 54 U/L (34-104) 01/20/18 20:04 Total Protein 5.0 g/dL (6.4-8.9) L 01/20/18 20:04 Albumin 2.3 g/dL (3.2-5.2) L 01/20/18 20:04 Globulin 2.7 g/dL (2-4) 01/20/18 20:04 Albumin/Globulin Ratio 0.9 (1-3) L 01/20/18 20:04 Blood Type B Positive 01/23/18 05:10 Antibody Screen Negative 01/23/18 05:10 Crossmatch See Detail 01/23/18 05:10 Assessment: s/p R thoracotomy, lobectomy, reintubated for delirium, treated for ETOH withdrawal Plan: COntinue supportive care continue to check residuals Chest tube to suction cxr in am
[2018-01-25] MEDS: Chlorhexidine MOUTHWASH 0.12%* 15 ML UDC TOPICAL SCH ×6 (01:00→20:16)
[2018-01-25] MEDS: Propofol* 100 ML IV SCH ×3 (01:00→09:55)
[2018-01-25] MEDS: ZOSYN 3.375 GM Q8H per EXTENDED INFUSION IVPB SCH ×6 (03:00→18:10)
[2018-01-25] MEDS: fentaNYL PCA* 20 ML PCA SCH ×2 (03:46→22:02)
[2018-01-25 04:59] LABS: ABS Basophils 0 10^3/ul (0-0.2); ABS Eosinophils 0.2 10^3/ul (0-0.6); ABS Lymphocytes 0.6 10^3/ul (1.0-4.8); ABS Monocytes 1.1 10^3/ul (0-0.8); ABS Neutrophils 6.7 10^3/ul (1.5-7.7); ABS Nucleated RBC 0 10^3/ul; Eosinophil % 1.9 % (0-6); Hematocrit 26 % (42-52); Hemoglobin 8.6 g/dl (14.0-18.0); Lymphocyte % 7.2 % (25-47); Mean Corpuscular HGB Conc 34 g/dl (31-36); Mean Corpuscular Hemoglobin 31 pg (27-31); Mean Corpuscular Volume 93 fL (80-94); Mean Platelet Volume 8.3 fL (7.4-10.4); Nucleated Red Blood Cells % 0; Platelet Count 140 10^3/ul (150-450); Red Blood Count 2.76 10^6/ul (4.00-5.40); Red Cell Distribution Width 19 % (10.5-15); White Blood Count 8.5 10^3/ul (3.5-10.8)
[2018-01-25 05:14] LABS: EGFR Non-African American 126.6 (>60)
[2018-01-25] MEDS ORDERED: Metoprolol Tartrate IV* 1 MG/ML 5 ML VIAL IV ONE (06:00)
[2018-01-25] MEDS: Metoprolol Succinate XL TAB* 100 MG PO SCH (07:43)
[2018-01-25] MEDS: Lansoprazole susp Kit 3 MG/ML (15 MG = 5 ML) PO SCH (09:32)
[2018-01-25] MEDS: Gabapentin CAP(*) 300 MG PO SCH ×3 (09:32→20:16)
[2018-01-25] MEDS: Folic Acid TAB* 1 MG PO SCH (09:32)
[2018-01-25] MEDS: Thiamine TAB* 100 MG TAB PO SCH (09:32)
[2018-01-25] MEDS: Multivitamins/Minerals TAB PO SCH (09:32)
--- NOTE | 2018-01-25 11:55 | PN ---
Progress Note - Progress Note Date of Service: 01/25/18 Note: Surgery Progress Note S: Patient is POD 5 from right upper lobectomy, reexploration complicated by acute AMS requiring reintubation. Remains on propofol gtt. Chest tube with leak while on suction, no leak when suction is off. Objective: Vital Signs - 24 hr 01/24/18 01/24/18 01/24/18 11:53 12:00 12:01 Temperature 98.4 F Pulse Rate 68 68 Respiratory Rate Blood Pressure 101/61 (mmHg) O2 Sat by Pulse 100 100 Oximetry 01/24/18 01/24/18 01/24/18 13:01 13:07 13:29 Temperature Pulse Rate 70 Respiratory 20 20 Rate Blood Pressure 131/83 (mmHg) O2 Sat by Pulse 100 Oximetry 01/24/18 01/24/18 01/24/18 14:00 14:01 14:58 Temperature Pulse Rate 67 67 Respiratory 14 Rate Blood Pressure 126/66 (mmHg) O2 Sat by Pulse 100 100 Oximetry 01/24/18 01/24/18 01/24/18 15:00 15:37 16:00 Temperature 96.9 F Pulse Rate 72 68 64 Respiratory Rate Blood Pressure 95/57 144/74 134/67 (mmHg) O2 Sat by Pulse 100 100 100 Oximetry 01/24/18 01/24/18 01/24/18 16:01 16:29 16:45 Temperature Pulse Rate 65 68 Respiratory 16 14 Rate Blood Pressure 105/62 (mmHg) O2 Sat by Pulse 100 100 Oximetry 01/24/18 01/24/18 01/24/18 17:00 17:58 18:00 Temperature Pulse Rate 68 69 Respiratory 14 Rate Blood Pressure 111/63 122/71 (mmHg) O2 Sat by Pulse 100 100 Oximetry 01/24/18 01/24/18 01/24/18 18:01 18:58 19:00 Temperature Pulse Rate 69 66 Respiratory 14 Rate Blood Pressure 108/65 (mmHg) O2 Sat by Pulse 100 100 Oximetry 01/24/18 01/24/18 01/24/18 19:27 20:00 20:01 Temperature 97.3 F Pulse Rate 62 62 Respiratory 12 Rate Blood Pressure 95/60 (mmHg) O2 Sat by Pulse 100 100 Oximetry 01/24/18 01/24/18 01/24/18 21:00 21:04 22:00 Temperature Pulse Rate 66 62 101 Respiratory 13 14 Rate Blood Pressure 86/61 114/67 121/79 (mmHg) O2 Sat by Pulse 100 100 100 Oximetry 01/24/18 01/24/18 01/24/18 22:01 22:41 22:52 Temperature Pulse Rate 101 Respiratory 14 15 Rate Blood Pressure (mmHg) O2 Sat by Pulse 100 Oximetry 01/24/18 01/24/18 01/24/18 23:00 23:03 23:18 Temperature 97.4 F Pulse Rate 69 68 Respiratory Rate Blood Pressure 129/71 (mmHg) O2 Sat by Pulse 98 99 Oximetry 01/25/18 01/25/18 01/25/18 00:00 00:01 01:00 Temperature Pulse Rate 67 67 66 Respiratory 14 14 Rate Blood Pressure 101/61 100/68 (mmHg) O2 Sat by Pulse 96 97 97 Oximetry 01/25/18 01/25/18 01/25/18 02:00 02:01 02:56 Temperature Pulse Rate 67 67 70 Respiratory 17 Rate Blood Pressure 110/60 120/79 (mmHg) O2 Sat by Pulse 98 98 96 Oximetry 01/25/18 01/25/18 01/25/18 03:00 03:01 03:05 Temperature Pulse Rate 65 69 Respiratory 15 Rate Blood Pressure 169/92 172/87 (mmHg) O2 Sat by Pulse 99 94 Oximetry 01/25/18 01/25/18 01/25/18 03:08 03:10 03:17 Temperature Pulse Rate 70 69 Respiratory 14 Rate Blood Pressure 157/82 (mmHg) O2 Sat by Pulse 92 93 Oximetry 01/25/18 01/25/18 01/25/18 03:30 03:41 03:45 Temperature 97.0 F Pulse Rate 74 67 Respiratory Rate Blood Pressure 141/78 121/74 (mmHg) O2 Sat by Pulse 91 98 Oximetry 01/25/18 01/25/18 01/25/18 04:00 04:01 04:02 Temperature Pulse Rate 86 66 66 Respiratory Rate Blood Pressure 88/58 119/68 (mmHg) O2 Sat by Pulse 97 97 97 Oximetry 01/25/18 01/25/18 01/25/18 04:15 04:30 04:49 Temperature Pulse Rate 70 70 77 Respiratory Rate Blood Pressure 113/68 86/61 102/72 (mmHg) O2 Sat by Pulse 98 99 99 Oximetry 01/25/18 01/25/18 01/25/18 05:00 05:15 05:30 Temperature Pulse Rate 76 70 88 Respiratory 14 Rate Blood Pressure 105/67 127/71 100/59 (mmHg) O2 Sat by Pulse 99 99 99 Oximetry 01/25/18 01/25/18 01/25/18 05:45 06:00 06:01 Temperature Pulse Rate 64 61 62 Respiratory 15 Rate Blood Pressure 106/65 97/59 (mmHg) O2 Sat by Pulse 99 100 100 Oximetry 01/25/18 01/25/18 01/25/18 06:15 06:30 06:45 Temperature Pulse Rate 64 63 63 Respiratory Rate Blood Pressure 94/59 100/64 110/64 (mmHg) O2 Sat by Pulse 99 99 100 Oximetry 01/25/18 01/25/18 01/25/18 07:00 07:15 07:30 Temperature Pulse Rate 66 66 73 Respiratory 10 Rate Blood Pressure 112/64 111/66 96/57 (mmHg) O2 Sat by Pulse 100 100 100 Oximetry 01/25/18 01/25/18 01/25/18 07:37 07:45 08:00 Temperature 98.1 F Pulse Rate 107 108 Respiratory 16 Rate Blood Pressure 95/69 92/66 (mmHg) O2 Sat by Pulse 100 100 Oximetry 01/25/18 01/25/18 01/25/18 08:01 08:15 08:30 Temperature Pulse Rate 109 76 73 Respiratory Rate Blood Pressure 91/64 121/68 (mmHg) O2 Sat by Pulse 100 99 99 Oximetry 01/25/18 01/25/18 01/25/18 08:45 09:00 09:15 Temperature Pulse Rate 79 77 80 Respiratory 11 Rate Blood Pressure 115/75 109/64 89/54 (mmHg) O2 Sat by Pulse 98 98 99 Oximetry 01/25/18 01/25/18 01/25/18 09:30 09:45 10:00 Temperature Pulse Rate 80 80 75 Respiratory 10 Rate Blood Pressure 102/63 102/65 122/66 (mmHg) O2 Sat by Pulse 98 98 99 Oximetry 01/25/18 01/25/18 01/25/18 10:01 10:15 10:30 Temperature Pulse Rate 78 81 74 Respiratory Rate Blood Pressure 90/55 112/70 (mmHg) O2 Sat by Pulse 100 98 100 Oximetry 01/25/18 01/25/18 10:45 11:00 Temperature Pulse Rate 79 76 Respiratory 14 Rate Blood Pressure 110/65 121/71 (mmHg) O2 Sat by Pulse 98 99 Oximetry Intake & Output 01/24/18 01/25/18 01/25/18 22:59 06:59 14:59 Intake Total 435 654 100 Output Total 520 545 140 Balance -85 109 -40 Weight 163 lb 12.8 oz Intake: IV Fluids 208 118 ABX - ZOSYN 118 NS (0.9%) 90 118 IVPB 45 74 ABX - ZOSYN 74 NS (0.9%) 45 Medicated IV 182 151 propofol 182 151 Oral 0 Tube Feeding 311 Tube Feeding Flush Amount 100 Output: Chest Tube #1 150 Hilton 520 395 140 Laboratory Results - last 24 hr 01/21/18 01/21/18 01/25/18 09:16 09:16 04:47 WBC RBC Hgb Hct MCV MCH MCHC RDW Plt Count MPV Neut % (Auto) Lymph % (Auto) [place] % (Auto) Eos % (Auto) Baso % (Auto) Absolute Neuts (auto) Absolute Lymphs (auto) Absolute Monos (auto) Absolute Eos (auto) Absolute Basos (auto) Absolute Nucleated RBC Nucleated RBC % Factor VIII Activity 110 von Willebrand Activity 177 von Willebrand Antigen 178 vWF Panel Interp See comment Factor IX 52 L Factor XI 31 L Sodium 135 Potassium 3.7 Chloride 105 Carbon Dioxide 30 BUN 8 Creatinine 0.65 L Est GFR ( Amer) 153.2 Est GFR (Non-Af Amer) 126.6 BUN/Creatinine Ratio 12.3 Glucose 127 H Calcium 8.4 L Phosphorus 2.4 L Magnesium 1.6 L 01/25/18 04:47 WBC 8.5 RBC 2.76 L Hgb 8.6 L Hct 26 L MCV 93 MCH 31 MCHC 34 RDW 19 H Plt Count 140 L MPV 8.3 Neut % (Auto) 78.2 Lymph % (Auto) 7.2 L [place] % (Auto) 12.5 H Eos % (Auto) 1.9 Baso % (Auto) 0.2 Absolute Neuts (auto) 6.7 Absolute Lymphs (auto) 0.6 L Absolute Monos (auto) 1.1 H Absolute Eos (auto) 0.2 Absolute Basos (auto) 0 Absolute Nucleated RBC 0 Nucleated RBC % 0 Factor VIII Activity von Willebrand Activity von Willebrand Antigen vWF Panel Interp Factor IX Factor XI Sodium Potassium Chloride Carbon Dioxide BUN Creatinine Est GFR ( Amer) Est GFR (Non-Af Amer) BUN/Creatinine Ratio Glucose Calcium Phosphorus Magnesium Chest tube: 250cc x 24 hours UOP: 1317 cc LEANN: 25 Antibiotics: zosyn Gtt: propofol Physical exam: General: intubated, sedated Chest: incision c/d/i with michelle, no drainage or erythema, small amount of bruising. LEANN s/s fluid with some leakage around tubing. Chest tube in place with s/s output, air leak on suction Imaging: no new imaging A/P: 57 M POD 5 from right upper lobectomy, reexploration for bleeding, recently reintubated for AMS Neuro- will wean sedation for weaning trials CV: SVT intermittent Resp: Post op RU lobectomy, per improvement lead will keep off suction to see if air leak resolves. Likely persistent air leak from pressure gradient caused by positive pressure ventilation ID: Fever work up thus far negative. Etiology can include atelectasis, consolidation on left. Blood cultures remain negative, continue empiric zosyn : Continue close I/O monitoring Heme: Hct stable, 26 today. Continue to monitor H/H GI: tube feeds for nutrition while intubated
[2018-01-25] MEDS: Norepinephrine VIAL* 4 MG in NS 0.9% 250 ML* 246 ML IVPB SCH (13:02)
[2018-01-25] MEDS: Ketorolac INJ* 30 MG/ML 1 ML VIAL IV PUSH PRN ×2 (13:45→20:16)
[2018-01-25] MEDS: Dexmedetomidine* 400 MCG in NS 0.9% 100 ML* 96 ML IVPB SCH (13:55)
--- NOTE | 2018-01-25 16:28 | PN ---
Date of Service: 01/25/18 Critical Care Services: Off propofol and is awake and appropriate, but only intermittently. Vital Signs: Temp Pulse Resp BP SpO2 FiO2 98.4 F 95 13 119/68 99 30 Physical Exam: Gen:Somnolent but arousable Lungs:Coarse rhonchi both lungs. No wheezes or crackles Extremities:No cyanosis or edema Neuro: No asterixis Fluid Balance (Past 24 Hours): 01/24/18 01/25/18 06:59 06:59 Intake Total 1535 1827 Output Total 3355 1592 Balance -1820 235 Weight 163 lb 163 lb Intake: IV Fluids 275 411 ABX - ZOSYN 118 LR NS (0.9%) 275 293 magnesium sulfate IVPB 187 357 ABX - ZOSYN 187 159 NS (0.9%) 45 magnesium sulfate 153 Medicated IV 604 443 CC - Esmolol/Breviblock 314 levophed 12 15 precedex 32 propofol 246 428 IV Narcotic Infusion 328 Fentanyl 328 Oral 0 Tube Feeding 141 441 Tube Feeding Flush Amount 175 Output: LEANN #1 150 25 Chest Tube #1 485 250 Urine 250 Hilton 2470 1317 Other: Date of Last Bowel Movement # Bowel Movements Estimated Stool Amount Labs: 01/25/18 01/25/18 01/25/18 04:47 04:47 12:55 WBC 8.5 RBC 2.76 L Hgb 8.6 L Hct 26 L MCV 93 MCH 31 MCHC 34 RDW 19 H Plt Count 140 L Sodium 135 Potassium 3.7 Chloride 105 Carbon Dioxide 30 BUN 8 Creatinine 0.65 L Est GFR ( Amer) 153.2 Est GFR (Non-Af Amer) 126.6 BUN/Creatinine Ratio 12.3 Glucose 127 H Calcium 8.4 L Phosphorus 2.4 L Magnesium 1.6 L Ammonia 65 H Studies: CXR - Right lung reexpanded. Nutrition: Jevity 1.2 at 50 cc/hr Impression: Mental status improving, and currently no signs of ETOH withdrawal. Patient continues on mechanical ventilation, but he can probablt be weaned when his mental status improves. He does have a continuing leak from the chest tube, but lung is expanded. Plan: Decrease level of sedation and attempt to wean from the ventilator. I will d/c suction applied to chest tube in an attempt to close the BP fistula. Patients son at the bedside and aware of current situation. I also spoke with Dr. Barahona of Surgery Service about impression and plans. Critical Care Time: 50 minutes
[2018-01-25] MEDS ORDERED: NS 0.9% 500 ML* 500 ML IV ONE (23:00)
[2018-01-26] MEDS: Dexmedetomidine* 400 MCG in NS 0.9% 100 ML* 96 ML IVPB SCH (00:23)
[2018-01-26] MEDS: Chlorhexidine MOUTHWASH 0.12%* 15 ML UDC TOPICAL SCH ×2 (01:11→04:48)
[2018-01-26] MEDS: ZOSYN 3.375 GM Q8H per EXTENDED INFUSION IVPB SCH ×6 (02:39→18:13)
[2018-01-26] MEDS ORDERED: NS 0.9% 250 ML* 250 ML IV ONE (03:00)
[2018-01-26 04:34] LABS: Hematocrit 22 % (42-52); Hemoglobin 7.6 g/dl (14.0-18.0); Mean Corpuscular HGB Conc 34 g/dl (31-36); Mean Corpuscular Hemoglobin 31 pg (27-31); Mean Corpuscular Volume 92 fL (80-94); Mean Platelet Volume 8.3 fL (7.4-10.4); Platelet Count 155 10^3/ul (150-450); Red Blood Count 2.44 10^6/ul (4.00-5.40); Red Cell Distribution Width 18 % (10.5-15); White Blood Count 8.4 10^3/ul (3.5-10.8)
[2018-01-26] MEDS ORDERED: Dexmedetomidine* 400 MCG in NS 0.9% 100 ML* 96 ML IVPB SCH (07:00)
[2018-01-26] MEDS: Ketorolac INJ* 30 MG/ML 1 ML VIAL IV PUSH PRN ×3 (07:53→20:24)
[2018-01-26] MEDS: Folic Acid TAB* 1 MG PO SCH (08:28)
[2018-01-26] MEDS: Metoprolol Succinate XL TAB* 100 MG PO SCH (08:28)
[2018-01-26] MEDS: Multivitamins/Minerals TAB PO SCH (08:28)
[2018-01-26] MEDS: Gabapentin CAP(*) 300 MG PO SCH ×3 (08:28→20:51)
[2018-01-26] MEDS: Thiamine TAB* 100 MG TAB PO SCH (08:29)
[2018-01-26] MEDS: Famotidine TAB* 20 MG PO SCH (08:40)
--- NOTE | 2018-01-26 09:55 | PN ---
Progress Note - Progress Note Date of Service: 01/26/18 SOAP: Subjective: Extubated. Does not c/o pain. Breathing ok. Airleak reported by CCM and CT put on H20 seal. Objective: Vital Signs Temp 99 F 01/26/18 08:00 Pulse 82 01/26/18 08:31 Resp 19 01/26/18 08:31 BP 110/64 01/26/18 08:31 Pulse Ox 99 01/26/18 08:31 Gen: sitting up in bed, sleeping, arousable. Lungs: +BS bilat; CT intact with o/p of 250ml/4hrs; dressing changed; no A/L noted; LEANN serous. Abd: soft CXR: no PTX noted. No infiltrate. Intake & Output 01/25/18 01/26/18 01/26/18 18:59 06:59 18:59 Intake Total 416 2684.4 240 Output Total 420 537 100 Balance -4 2147.4 140 Weight 171 lb 13 oz Intake: IV Fluids 205 962 ABX - ZOSYN 100 NS (0.9%) 105 962 IVPB 205 ABX - ZOSYN 205 Medicated IV 111 141.4 precedex 141.4 propofol 111 Oral 0 240 Tube Feeding 1276 Tube Feeding Flush Amount 100 100 Output: Chest Tube #1 170 Hilton 420 367 100 Laboratory Results - last 24 hr 01/25/18 01/26/18 01/26/18 12:55 04:23 04:23 WBC RBC Hgb Hct MCV MCH MCHC RDW Plt Count MPV Sodium 138 Potassium 4.3 Chloride 105 Carbon Dioxide 29 Anion Gap 4 BUN 10 Creatinine 0.74 Est GFR ( Amer) 131.9 Est GFR (Non-Af Amer) 109.0 BUN/Creatinine Ratio 13.5 Glucose 117 H Calcium 7.9 L Ammonia 65 H 69 H 01/26/18 04:23 WBC 8.4 RBC 2.44 L Hgb 7.6 L Hct 22 L MCV 92 MCH 31 MCHC 34 RDW 18 H Plt Count 155 MPV 8.3 Sodium Potassium Chloride Carbon Dioxide Anion Gap BUN Creatinine Est GFR ( Amer) Est GFR (Non-Af Amer) BUN/Creatinine Ratio Glucose Calcium Ammonia Active Medications Generic Name Dose Route Start Last Admin Trade Name Freq PRN Reason Stop Dose Admin Albuterol 2.5 mg 01/21/18 23:38 11/18/18 04:31 Ventolin 2.5 Mg/3 Ml Neb.Christie* INH 2.5 mg [id number] AWAKE PRN Administration SOB/WHEEZING Famotidine 20 mg 01/26/18 09:00 01/26/18 08:40 Pepcid Tab* PO 20 mg DAILY DOLLY Administration Folic Acid 1 mg 01/21/18 09:00 01/26/18 08:28 Folvite Tab* PO 1 mg DAILY DOLLY Administration Gabapentin 300 mg 01/20/18 21:00 01/26/18 08:28 Neurontin Cap(*) PO 300 mg TID DOLLY Administration Piperacillin Sod/Tazobactam 100 mls @ 25 mls/hr 01/23/18 02:30 01/26/18 09:15 Sod 3.375 gm/ Sodium Chloride IVPB 25 mls/hr Q8H DOLLY Administration Fentanyl Citrate 20 mls @ 1 mls/hr 01/23/18 12:00 01/25/18 22:02 Fentanyl Router Machine Operator* FACTORY SUPERINTENDENT 1 mls/hr Q20H DOLLY Administration Protocol 50 MCG/HR Ketorolac Tromethamine 30 mg 01/25/18 13:09 01/26/18 07:53 Toradol Inj* IV PUSH 01/28/18 13:09 30 mg Q6H PRN Administration PAIN Metoprolol Succinate 100 mg 01/22/18 16:00 01/26/18 08:28 Toprol Xl Tab* PO 100 mg DAILY DOLLY Administration Multivitamins/Minerals 1 tab 01/21/18 09:00 01/26/18 08:28 Theragran/Minerals Tab* PO 1 tab DAILY DOLLY Administration Pharmacy Consult 1 note 01/22/18 23:11 Zosyn Per Pharmacy* FOLLOW UP . PRN PER PROTOCOL Thiamine HCl 100 mg 01/21/18 09:00 01/26/18 08:29 Vitamin B-1 Tab* PO 100 mg DAILY DOLLY Administration Assessment: POD#6 s/p RULobectomy; s/p takeback for bleed. Anemia due to acute hemorrhage, complicated by coagulopathy, stable. EtOH withdrawl. Plan: Cont CT and LEANN. Adv diet. Cont ICU. CCM management appreciated.
--- NOTE | 2018-01-26 13:36 | PN ---
Date of Service: 01/26/18 Critical Care Services: Patient weaned and extubated this AM and has done well since. Is alert and oriented. No signs of ETOH withdrawal. Vital Signs: Temp Pulse Resp BP SpO2 FiO2 99.3 F 59 12 135/71 100 35 Physical Exam: Gen:Resting comfortably. HEENT:Speech raspy Lungs: No crackles or wheezes Abdomen:Mildly distended Extremities:No cyanosis or edema Neuro: Oriented x3. No apparent focal deficits. Fluid Balance (Past 24 Hours): 01/25/18 01/26/18 01/27/18 06:59 06:59 06:59 Intake Total 1827 3100.4 240 Output Total 1592 957 305 Balance 235 2143.4 -65 Weight 163 lb 171 lb Intake: IV Fluids 411 1167 ABX - ZOSYN 118 100 NS (0.9%) 293 1067 IVPB 357 205 ABX - ZOSYN 159 205 NS (0.9%) 45 magnesium sulfate 153 Medicated IV 443 252.4 CC - Esmolol/Breviblock levophed 15 precedex 141.4 propofol 428 111 IV Narcotic Infusion Fentanyl Oral 0 240 Tube Feeding 441 1276 Tube Feeding Flush Amount 175 200 Output: LEANN #1 25 Chest Tube #1 250 170 Urine Hilton 1317 787 305 Labs: Laboratory Results - last 24 hr 01/25/18 01/26/18 01/26/18 12:55 04:23 04:23 WBC RBC Hgb Hct MCV MCH MCHC RDW Plt Count MPV Sodium 138 Potassium 4.3 Chloride 105 Carbon Dioxide 29 Anion Gap 4 BUN 10 Creatinine 0.74 Est GFR ( Amer) 131.9 Est GFR (Non-Af Amer) 109.0 BUN/Creatinine Ratio 13.5 Glucose 117 H Calcium 7.9 L Ammonia 65 H 69 H 01/26/18 04:23 WBC 8.4 RBC 2.44 L Hgb 7.6 L Hct 22 L MCV 92 MCH 31 MCHC 34 RDW 18 H Plt Count 155 MPV 8.3 Sodium Potassium Chloride Carbon Dioxide Anion Gap BUN Creatinine Est GFR ( Amer) Est GFR (Non-Af Amer) BUN/Creatinine Ratio Glucose Calcium Ammonia Studies: CXR: No pneumothorax. Looks the same as CXR yesterday. Nutrition: Starting clear liquids post-extubation. Impression: Doing well. off the ventilator, and no signs of ETOH withdrawal. Had 250 cc blood out of chest tube overnight, but significance of this is unclear at the present time. There is only a minimal leak (when coughing) during spontaneous breathing. Plan: Advance diet as tolerated. Chest tube still needed for drainage of blood from pleural space. Critical Care Time: 50 minutes (including time for extubation)
[2018-01-26] MEDS ORDERED: Acetaminophen ADULT LIQ* 650 MG/20.3 ML UDC PO ONE (20:40)
[2018-01-26] MEDS: hydrALAZINE IV* 20 MG/ML VIAL IV SLOW PU PRN (20:55)
[2018-01-26] MEDS: fentaNYL PCA* 20 ML PCA SCH (21:35)
[2018-01-26] MEDS ORDERED: Vancomycin(*) 1,250 MG in NS 0.9% 250 ML* 250 ML IVPB ONE (21:40)
[2018-01-26] MEDS ORDERED: fentaNYL* 50 MCG/ML 2 ML VIAL (100 MCG VIAL) IV PRN (21:41)
[2018-01-26 23:12] LABS: Urine Appearance Cloudy; Urine Blood 3+ (Negative); Urine Color Amber; Urine Ketones Negative (Negative); Urine Protein Negative (Negative); Urine Red Blood Cell 3+(>10/hpf) (Absent); Urine Specific Gravity 1.026 (1.010-1.030); Urine Urobilinogen Negative (Negative); Urine White Blood Cell Trace(0-5/hpf) (Absent)
[2018-01-27] MEDS ORDERED: Vancomycin per Pharmacy* NOTE FOLLOW UP PRN (00:10)
[2018-01-27] MEDS ORDERED: fentaNYL* 50 MCG/ML 2 ML VIAL (100 MCG VIAL) IV SLOW PU ONE (00:30)
[2018-01-27] MEDS: ZOSYN 3.375 GM Q8H per EXTENDED INFUSION IVPB SCH ×6 (02:34→18:30)
[2018-01-27] MEDS: fentaNYL* 50 MCG/ML 2 ML VIAL (100 MCG VIAL) IV PRN ×2 (03:49→06:39)
[2018-01-27] MEDS: Vancomycin(*) 1,000 MG in NS 0.9% 250 ML* 250 ML IVPB SCH ×3 (05:57→22:03)
[2018-01-27] MEDS: hydrALAZINE IV* 20 MG/ML VIAL IV SLOW PU PRN (06:34)
[2018-01-27] MEDS ORDERED: Vancomycin(*) 1,250 MG in NS 0.9% 250 ML* 250 ML IVPB SCH (08:00)
[2018-01-27] MEDS: Famotidine TAB* 20 MG PO SCH (08:10)
[2018-01-27] MEDS: Folic Acid TAB* 1 MG PO SCH (08:10)
[2018-01-27] MEDS: Metoprolol Succinate XL TAB* 100 MG PO SCH (08:10)
[2018-01-27] MEDS: Gabapentin CAP(*) 300 MG PO SCH ×3 (08:10→20:16)
[2018-01-27] MEDS: Thiamine TAB* 100 MG TAB PO SCH (08:10)
[2018-01-27] MEDS: Multivitamins/Minerals TAB PO SCH (08:10)
[2018-01-27] MEDS ORDERED: fentaNYL* 50 MCG/ML 2 ML VIAL (100 MCG VIAL) IV PRN (09:09)
[2018-01-27 09:43] LABS: Hematocrit 24 % (42-52); Hemoglobin 8.4 g/dl (14.0-18.0); Mean Corpuscular HGB Conc 34 g/dl (31-36); Mean Corpuscular Hemoglobin 31 pg (27-31); Mean Corpuscular Volume 92 fL (80-94); Mean Platelet Volume 7.6 fL (7.4-10.4); Platelet Count 218 10^3/ul (150-450); Red Blood Count 2.67 10^6/ul (4.00-5.40); Red Cell Distribution Width 17 % (10.5-15); White Blood Count 10.3 10^3/ul (3.5-10.8)
--- NOTE | 2018-01-27 09:56 | PN ---
Date of Service: 01/27/18 Critical Care Services: Patient had uneventful evening except for one temp to 100.6 without associated symptomatology. Was on Zosyn - vancomycin added, and cultures of blood and urine sent. Afebrile this AM and without new complaints. Vital Signs: Temp Pulse Resp BP SpO2 FiO2 99.5 F 71 18 148/72 99 35 Physical Exam: Gen:Alert, oriented, and appears comfortable. Lungs: Scattered rhonchi. No crackles or wheezes. Chest tube: No air leak. Abdomen:Not distended. Extremities:No cyanosis or edema Neuro: No asterixis. Fluid Balance (Past 24 Hours): 01/25/18 01/26/18 01/27/18 06:59 06:59 06:59 Intake Total 1827 3100.4 2595 Output Total 1516 810 7840 Balance 235 2143.4 1210 Weight 163 lb 12.8 oz 171 lb 13 oz 167 lb 6.4 oz Intake: IV Fluids 411 1167 331 ABX - ZOSYN 118 100 NS (0.9%) 293 1067 229 NS rider 102 IVPB 357 205 764 ABX - VANCOMYCIN 320 ABX - ZOSYN 159 205 199 NS (0.9%) 45 NS rider 245 magnesium sulfate 153 Medicated IV 443 252.4 levophed 15 precedex 141.4 propofol 428 111 Oral 0 1500 Tube Feeding 441 1276 Tube Feeding Flush Amount 175 200 Output: LEANN #1 25 15 Chest Tube #1 250 170 350 Urine 280 Hilton 1317 787 740 Labs: 01/26/18 01/27/18 22:50 09:35 WBC 10.3 RBC 2.67 L Hgb 8.4 L Hct 24 L MCV 92 MCH 31 MCHC 34 RDW 17 H Plt Count 218 MPV 7.6 Urine Color Suly Urine Appearance Cloudy Urine pH 5.0 Ur Specific [place] 1.026 Urine Protein Negative Urine Ketones Negative Urine Blood 3+ A Urine Nitrate Negative Urine Bilirubin Negative Urine Urobilinogen Negative Ur Leukocyte Esterase Negative Urine WBC (Auto) Trace(0-5/hpf) Urine RBC (Auto) 3+(>10/hpf) A Urine Bacteria 1+ A Urine Glucose Negative Studies: None today. Nutrition: Clear liquids (tolerating it). Impression: 1. Not sure of significance of temp elevation last night, since it was only a single reading - could be a result of blood in the pleural space. No evidence for an active infection at present. 2. Overall, patient much improved after resolution of delirium tremens. Plan: 1. Advance to regular diet 2. Transfer out of ICU 3. Surgery service to decide about removing chest tube.
[2018-01-27 10:03] LABS: EGFR Non-African American 114.4 (>60)
[2018-01-27] MEDS ORDERED: oxyCODONE/Acetamin 5/325 MG* TAB PO PRN (11:37)
[2018-01-27] MEDS ORDERED: Morphine INJ* 10 MG/ML 1 ML CARPUJECT IV PRN (11:38)
[2018-01-27] MEDS ORDERED: Morphine VIAL* 4 MG/ML VIAL (1 ml vial) ONE (11:53)
[2018-01-27] MEDS: Ketorolac INJ* 30 MG/ML 1 ML VIAL IV PUSH PRN ×2 (12:45→20:11)
[2018-01-27] MEDS: oxyCODONE/Acetamin 5/325 MG* TAB PO PRN ×3 (12:46→22:02)
[2018-01-27] MEDS ORDERED: Docusate CAP* 100 MG PO PRN (12:55)
[2018-01-27] MEDS ORDERED: Polyethylene Glycol 3350* 17 GM PACKET PO PRN (12:56)
[2018-01-27] MEDS ORDERED: Bisacodyl SUPP* 10 MG SUPP PR PRN (12:56)
--- NOTE | 2018-01-27 15:16 | PN ---
Progress Note - Progress Note Date of Service: 01/27/18 SOAP: Subjective: Feels much better-breathing well, no cough Transferred to floor. Tolerating liquids po passing large amounts of flatus Objective: CT level 325 cc as of 1300 01/27/18, No leak on water seal. Temp Pulse Resp BP Pulse Ox 98.8 F 75 18 153/73 100 01/27/18 11:13 01/27/18 11:13 01/27/18 14:20 01/27/18 11:13 01/27/18 11:13 Intake & Output 01/25/18 01/26/18 01/27/18 01/28/18 06:59 06:59 06:59 06:59 Intake Total 1827 3100.4 2595 620 Output Total 7649 772 4021 860 Balance 235 2143.4 1210 -240 Weight 163 lb 12.8 oz 171 lb 13 oz 167 lb 6.4 oz Intake: IV Fluids 411 1167 331 60 ABX - ZOSYN 118 100 NS (0.9%) 293 1067 229 NS rider 102 60 IVPB 357 205 764 ABX - VANCOMYCIN 320 ABX - ZOSYN 159 205 199 NS (0.9%) 45 NS rider 245 magnesium sulfate 153 Medicated IV 443 252.4 levophed 15 precedex 141.4 propofol 428 111 Oral 0 1500 560 Tube Feeding 441 1276 Tube Feeding Flush Amount 175 200 Output: LEANN #1 25 15 10 Chest Tube #1 250 170 350 450 Urine 280 400 Hilton 1317 787 740 PEX: Comfortable in chair Lungs clear with decreased breath sounds at the bases. Dressing intact Abd is soft and slightly distended. Bowel sounds are present. CXR noted 01/26. Laboratory Results - last 24 hr 01/26/18 01/27/18 01/27/18 22:50 09:35 09:35 WBC 10.3 RBC 2.67 L Hgb 8.4 L Hct 24 L MCV 92 MCH 31 MCHC 34 RDW 17 H Plt Count 218 MPV 7.6 Sodium 134 L Potassium 3.7 Chloride 104 Carbon Dioxide 25 Anion Gap 5 BUN 12 Creatinine 0.71 Est GFR ( Amer) 138.4 Est GFR (Non-Af Amer) 114.4 BUN/Creatinine Ratio 16.9 Glucose 160 H Calcium 7.9 L Urine Color Suly Urine Appearance Cloudy Urine pH 5.0 Ur Specific [place] 1.026 Urine Protein Negative Urine Ketones Negative Urine Blood 3+ A Urine Nitrate Negative Urine Bilirubin Negative Urine Urobilinogen Negative Ur Leukocyte Esterase Negative Urine WBC (Auto) Trace(0-5/hpf) Urine RBC (Auto) 3+(>10/hpf) A Urine Bacteria 1+ A Urine Glucose Negative Assessment: S/P right thoracotomy--chest tube in place MS changes-resolved Currently on antibiotics-blood cultures pending. Plan: TX to floor Advance diet Chest tube to drainage-follow outputs, not ready to be removed yet Check blood cultures-? duration of antibiotic coverage Pulmonary toilet Analgesia Recheck CXR in AM
[2018-01-27] MEDS: Morphine VIAL* 4 MG/ML VIAL (1 ml vial) IV PRN (16:23)
[2018-01-27] MEDS: Senna TAB PO SCH (20:16)
[2018-01-28] MEDS: oxyCODONE/Acetamin 5/325 MG* TAB PO PRN ×5 (02:04→23:26)
[2018-01-28] MEDS: ZOSYN 3.375 GM Q8H per EXTENDED INFUSION IVPB SCH ×4 (02:05→10:32)
[2018-01-28] MEDS: Ketorolac INJ* 30 MG/ML 1 ML VIAL IV PUSH PRN ×3 (02:12→14:57)
[2018-01-28] MEDS ORDERED: Vancomycin Trough Check NOTE FOLLOW UP ONE (05:30)
[2018-01-28 06:13] LABS: Hematocrit 23 % (42-52); Hemoglobin 7.7 g/dl (14.0-18.0); Mean Corpuscular HGB Conc 34 g/dl (31-36); Mean Corpuscular Hemoglobin 31 pg (27-31); Mean Corpuscular Volume 92 fL (80-94); Platelet Count 224 10^3/ul (150-450); Red Blood Count 2.51 10^6/ul (4.00-5.40); Red Cell Distribution Width 18 % (10.5-15); White Blood Count 8.9 10^3/ul (3.5-10.8)
[2018-01-28 06:32] LABS: EGFR Non-African American 105.7 (>60)
[2018-01-28 06:46] LABS: Vancomycin Trough 11.2 mcg/mL
[2018-01-28] MEDS: Vancomycin(*) 1,000 MG in NS 0.9% 250 ML* 250 ML IVPB SCH (06:55)
[2018-01-28] MEDS: Famotidine TAB* 20 MG PO SCH (08:23)
[2018-01-28] MEDS: Metoprolol Succinate XL TAB* 100 MG PO SCH (08:23)
[2018-01-28] MEDS: Multivitamins/Minerals TAB PO SCH (08:24)
[2018-01-28] MEDS: Gabapentin CAP(*) 300 MG PO SCH ×3 (08:24→21:29)
[2018-01-28] MEDS: Thiamine TAB* 100 MG TAB PO SCH (08:25)
[2018-01-28] MEDS: Folic Acid TAB* 1 MG PO SCH (08:25)
--- NOTE | 2018-01-28 10:09 | PN ---
Progress Note - Progress Note Date of Service: 01/28/18 SOAP: Subjective: Doing well Tolerating po and had BM Ambulated in halls No SOB Objective: Afebrile for 48 hours Temp Pulse Resp BP Pulse Ox 98.1 F 61 18 132/58 100 01/28/18 07:40 01/28/18 07:40 01/28/18 08:24 01/28/18 07:40 01/28/18 07:40 CT level 725 cc's--400 cc last 24 hours--Dark brown liquid No leak noted--chest tube now on water seal PEX: Comfortable Lungs clear--decreased breath sounds right apex and base Tube dressing changed CXR reviewed--no PTX, left lung much improved. Assessment: S/P right thoracotomy-chest tube still with significant drainage MS changes--resolved Plan: Continue chest tube drainage--water seal IV abx Pulmonary toilet Increase activity
[2018-01-28] MEDS: Morphine VIAL* 4 MG/ML VIAL (1 ml vial) IV PRN (10:31)
[2018-01-28] MEDS ORDERED: Vancomycin(*) 1,250 MG in NS 0.9% 250 ML* 250 ML IVPB SCH (14:00)
--- NOTE | 2018-01-28 15:39 | PN ---
Subjective Date of Service: 01/28/18 Interval History: Pt seen and examined. Meds and labs reviewed. CC: N/A ROS: Denied CARNES/dizziness, F/C, N/V, CP, SOB, increased cough, sputum production , abd pain, diarrhea, constipation, dysuria, myalgias, arthralgias, throat pain , and new skin lesions. The rest of the 14 point ROS are unremarkable. PHYSICAL EXAM: GEN APPEARANCE: Awake, not in acute distress HEENT: NC/AT, PERRLA, moist oral mucosa, (-) throat erythema NECK: Soft, supple, (-) cervical LAD, (-)JVD HEART: S1S2 WNL, RRR, No MRG CHEST: CTA, BL, GAE, No W/R/R ABD: Soft, ND/NT, NABS 4x Q EXT: No C/C/E SKIN: Warm to touch PSYCH: No active psychosis, hallucinations, depression, SI/HI Objective Active Medications: Bisacodyl (Dulcolax Supp*) 10 mg [place] DAILY PRN PRN Reason: CONSTIPATION Docusate Sodium (Colace Cap*) 100 mg PO BID PRN PRN Reason: CONSTIPATION Last Admin: 01/27/18 20:15 Dose: 100 mg Famotidine (Pepcid Tab*) 20 mg PO DAILY [facility] Last Admin: 01/28/18 08:23 Dose: 20 mg Folic Acid (Folvite Tab*) 1 mg PO DAILY [facility] Last Admin: 01/28/18 08:25 Dose: 1 mg Gabapentin (Neurontin Cap(*)) 300 mg PO TID [facility] Last Admin: 01/28/18 14:51 Dose: 300 mg Heparin Sodium (Porcine) (Heparin Flush Picc/Ml/Cvc(*)) 1 - 3 ml FLUSH 0600, 1800 [facility]; Protocol Last Admin: 01/28/18 05:56 Dose: 2 ml Hydralazine HCl (Apresoline Iv*) 5 mg IV SLOW PU Q6H PRN PRN Reason: BLOOD PRESSURE Last Admin: 01/27/18 06:34 Dose: 5 mg Doxycycline Hyclate 100 mg/ (Sodium Chloride) 250 mls @ 250 mls/hr IVPB Q12H [facility] Stop: 02/01/18 15:59 Ketorolac Tromethamine (Toradol Inj*) 30 mg IV PUSH Q6H PRN PRN Reason: PAIN Last Admin: 01/28/18 14:57 Dose: 30 mg Metoprolol Succinate (Toprol Xl Tab*) 100 mg PO DAILY [facility] Last Admin: 01/28/18 08:23 Dose: 100 mg Morphine Sulfate (Morphine Vial*) 2 mg IV Q4H PRN PRN Reason: PAIN - SEVERE Last Admin: 01/28/18 10:31 Dose: 2 mg Multivitamins/Minerals (Theragran/Minerals Tab*) 1 tab PO DAILY [facility] Last Admin: 01/28/18 08:24 Dose: 1 tab Oxycodone/Acetaminophen (Percocet 5/325 Tab*) 1 tab PO Q4H PRN PRN Reason: PAIN Last Admin: 01/28/18 10:32 Dose: 1 tab Oxycodone/Acetaminophen (Percocet 5/325 Tab*) 2 tab PO Q4H PRN PRN Reason: PAIN Last Admin: 01/28/18 14:50 Dose: 2 tab Polyethylene Glycol/Electrolytes (Miralax*) 17 gm PO DAILY PRN PRN Reason: CONSTIPATION Last Admin: 01/27/18 14:25 Dose: 17 gm Senna (Senokot Tab*) 1 tab PO BEDTIME [facility] Last Admin: 01/27/18 20:16 Dose: 1 tab Thiamine HCl (Vitamin B-1 Tab*) 100 mg PO DAILY [facility] Last Admin: 01/28/18 08:25 Dose: 100 mg Vital Signs - 8 hr 01/28/18 01/28/18 01/28/18 07:40 08:00 08:24 Temperature 98.1 F Pulse Rate 61 Respiratory 16 18 18 Rate Blood Pressure 132/58 (mmHg) O2 Sat by Pulse 100 Oximetry 01/28/18 01/28/18 01/28/18 10:31 10:32 10:58 Temperature Pulse Rate Respiratory 18 18 18 Rate Blood Pressure (mmHg) O2 Sat by Pulse Oximetry 01/28/18 01/28/18 01/28/18 11:59 14:50 14:51 Temperature 98.1 F Pulse Rate 65 Respiratory 18 16 16 Rate Blood Pressure 121/55 (mmHg) O2 Sat by Pulse 100 Oximetry Oxygen Devices in Use Now: Nasal Cannula Result Diagrams: 01/28/18 05:50 01/28/18 05:50 Microbiology and Other Data: Microbiology 01/26/18 22:50 Urine Culture - Final Urine No Growth (<1,000 CFU/mL) 01/22/18 21:55 Aerobic Blood Culture - Final Blood Venous No Growth Day 5 Anaerobic Blood Culture - Final No Growth Day 5 01/22/18 21:55 Aerobic Blood Culture - Final Blood Venous No Growth Day 5 Anaerobic Blood Culture - Final No Growth Day 5 01/26/18 21:12 Aerobic Blood Culture - Preliminary Blood Line No Growth Day 1 Anaerobic Blood Culture - Preliminary No Growth Day 1 01/26/18 21:12 Aerobic Blood Culture - Preliminary Blood Line No Growth Day 1 Anaerobic Blood Culture - Preliminary No Growth Day 1 01/20/18 17:25 Nasal Screen MRSA (PCR) - Final Nasal Mrsa Not Detected Assess/Plan/Problems-Billing Assessment: 12/01/16: Fell off rut while climbing; S/P left sided pneumotx & ruptured spleen S/P repair 02/21/17: 1.7 cm speculated nodule found @RUL 2018: 04/24: S/P CT guided bx for mod differentiated adono CA 01/20: S/P elective RUL lobectomy; med-consult called; transfused w/3 units PRBC 01/21: Exploration of recent thoracotomy w/ evac of hematoma and control of bleeding (handful of clot found in upper chest) likely due to small bleed in the region of bronchial stump S/P suture ligation w/clipping of adjacent vessels ; No additional sites of bleeding identified; 1 unit PRBC and 1 unit of platelets given; Dr. Ren saw pt in consultation for coagulopathy---was suspecting liver problem; tests ordered; pt found to have pneumotx S/P placement of chest tube and right IJ 01/22: Epidural anesthesia given; Pt staged to be T2 cN0, M0; No coagulopathy identified by Heme/Onc; sig atelectasis on right w/SQ emphysema---chest tube in place; SVTEsmolol gtt 01/23: MS change requiring increasing Ativan; found to be on ETOH WD and was intubated for airway protection on propofol; 1 unit PRBC transfused 01/24: CXR shows Left basilar infiltratesZosyn and Vanco along TF started 01/25: (Dr Painter of ICU took over); No signs of ETOH WD; Still on ventilator, but started weaning pt 01/26: Off ventilator; started on clears; However, 1x febrile episode at 100.6 01/27: Transferred to floor - Patient Problems (1) HCAP (healthcare-associated pneumonia) Current Visit: Yes Status: Acute Code(s): J18.9 - PNEUMONIA, UNSPECIFIED ORGANISM SNOMED Code(s): 546077120 Comment: #Left basilar PNA/HCAP: -On Zosyn and Vancomycin since 01/22 and blood Cx has been negative and leukocytosis has resolved many days ago (day 6 of Abx) -Will D/C Zosyn and Vancomycin and will place on Doxycycline IV for 4 more days to complete a 10 day Abx regimen for HCAP (2) Adenocarcinoma, lung Current Visit: Yes Status: Acute Code(s): C34.90 - MALIGNANT NEOPLASM OF UNSP PART OF UNSP BRONCHUS OR LUNG SNOMED Code(s): 961890487 Comment: -T2 cN0, M0 -S/P elective RUL lobectomy w/subsequent exploration of postoperative hematoma and control of bleeding S/P suture ligation w/clipping of adjacent vessels -Defer any further input from Heme/Onc (3) Pneumothorax Current Visit: Yes Status: Acute Code(s): J93.9 - PNEUMOTHORAX, UNSPECIFIED SNOMED Code(s): 08633430 Comment: -SP CT placement -Defer w/Sx (4) Alcohol abuse Current Visit: Yes Status: Acute Code(s): F10.10 - ALCOHOL ABUSE, UNCOMPLICATED SNOMED Code(s): 20188005 Comment: -Advised life-style modifications -ETOH WD, resolved (5) DVT prophylaxis Current Visit: No Status: Acute Code(s): NAD8144 - SNOMED Code(s): 189391708 Comment: -On SCDs given hx of significant post-op bleed -Encourage ambulation w/assist Status and Disposition: -Defer with Surgery
[2018-01-28] MEDS: DOXYcycline IV* 100 MG in NS 0.9% 250 ML* 250 ML IVPB SCH (16:59)
[2018-01-28] MEDS: Senna TAB PO SCH (21:29)
[2018-01-29] MEDS: oxyCODONE/Acetamin 5/325 MG* TAB PO PRN (03:53)
[2018-01-29] MEDS: DOXYcycline IV* 100 MG in NS 0.9% 250 ML* 250 ML IVPB SCH ×2 (03:54→16:23)
[2018-01-29 06:14] LABS: ABS Basophils 0 10^3/ul (0-0.2); ABS Eosinophils 0.3 10^3/ul (0-0.6); ABS Monocytes 1.2 10^3/ul (0-0.8); ABS Neutrophils 6.8 10^3/ul (1.5-7.7); ABS Nucleated RBC 0 10^3/ul; Eosinophil % 3.4 % (0-6); Hematocrit 23 % (42-52); Lymphocyte % 10.6 % (25-47); Mean Corpuscular HGB Conc 34 g/dl (31-36); Mean Corpuscular Hemoglobin 32 pg (27-31); Mean Corpuscular Volume 92 fL (80-94); Mean Platelet Volume 7.9 fL (7.4-10.4); Nucleated Red Blood Cells % 0; Platelet Count 257 10^3/ul (150-450); Red Blood Count 2.53 10^6/ul (4.00-5.40); Red Cell Distribution Width 18 % (10.5-15); White Blood Count 9.3 10^3/ul (3.5-10.8)
[2018-01-29] MEDS: Folic Acid TAB* 1 MG PO SCH (10:22)
[2018-01-29] MEDS: Metoprolol Succinate XL TAB* 100 MG PO SCH (10:22)
[2018-01-29] MEDS: Famotidine TAB* 20 MG PO SCH (10:22)
[2018-01-29] MEDS: Thiamine TAB* 100 MG TAB PO SCH (10:23)
[2018-01-29] MEDS: Multivitamins/Minerals TAB PO SCH (10:23)
[2018-01-29] MEDS: Gabapentin CAP(*) 300 MG PO SCH ×3 (10:23→20:25)
[2018-01-29] MEDS: Ketorolac INJ* 30 MG/ML 1 ML VIAL IV PUSH PRN (10:24)
--- NOTE | 2018-01-29 11:35 | PN ---
Subjective Date of Service: 01/29/18 Interval History: Pt is feeling ok today. He denies any SOB. Some cough with clear sputum on occasion. His pain he states is at an 8/10 constantly. He states he is not really taking any medications for pain at this time as he thinks they are making him feel confused and he states they have not really helped. He has noticed he has marked B/L LE edema and he feels bloated. He also has not pooped since being in the hospital. Objective Active Medications: Bisacodyl (Dulcolax Supp*) 10 mg [place] DAILY PRN PRN Reason: CONSTIPATION Docusate Sodium (Colace Cap*) 100 mg PO BID PRN PRN Reason: CONSTIPATION Last Admin: 01/27/18 20:15 Dose: 100 mg Famotidine (Pepcid Tab*) 20 mg PO DAILY [facility] Last Admin: 01/29/18 10:22 Dose: 20 mg Folic Acid (Folvite Tab*) 1 mg PO DAILY [facility] Last Admin: 01/29/18 10:22 Dose: 1 mg Gabapentin (Neurontin Cap(*)) 300 mg PO TID [facility] Last Admin: 01/29/18 10:23 Dose: 300 mg Heparin Sodium (Porcine) (Heparin Flush Picc/Ml/Cvc(*)) 1 - 3 ml FLUSH 0600, 1800 [facility]; Protocol Last Admin: 01/29/18 05:45 Dose: 2 ml Hydralazine HCl (Apresoline Iv*) 5 mg IV SLOW PU Q6H PRN PRN Reason: BLOOD PRESSURE Last Admin: 01/27/18 06:34 Dose: 5 mg Doxycycline Hyclate 100 mg/ (Sodium Chloride) 250 mls @ 250 mls/hr IVPB Q12H [facility] Stop: 02/01/18 15:59 Last Admin: 01/29/18 03:54 Dose: 250 mls/hr Ketorolac Tromethamine (Toradol Inj*) 30 mg IV PUSH Q6H PRN PRN Reason: PAIN Last Admin: 01/29/18 10:24 Dose: 30 mg Metoprolol Succinate (Toprol Xl Tab*) 100 mg PO DAILY [facility] Last Admin: 01/29/18 10:22 Dose: 100 mg Morphine Sulfate (Morphine Vial*) 2 mg IV Q4H PRN PRN Reason: PAIN - SEVERE Last Admin: 01/28/18 10:31 Dose: 2 mg Multivitamins/Minerals (Theragran/Minerals Tab*) 1 tab PO DAILY [facility] Last Admin: 01/29/18 10:23 Dose: 1 tab Oxycodone/Acetaminophen (Percocet 5/325 Tab*) 1 tab PO Q4H PRN PRN Reason: PAIN Last Admin: 01/28/18 10:32 Dose: 1 tab Oxycodone/Acetaminophen (Percocet 5/325 Tab*) 2 tab PO Q4H PRN PRN Reason: PAIN Last Admin: 01/29/18 03:53 Dose: 2 tab Polyethylene Glycol/Electrolytes (Miralax*) 17 gm PO DAILY PRN PRN Reason: CONSTIPATION Last Admin: 01/27/18 14:25 Dose: 17 gm Senna (Senokot Tab*) 1 tab PO BEDTIME [facility] Last Admin: 01/28/18 21:29 Dose: 1 tab Thiamine HCl (Vitamin B-1 Tab*) 100 mg PO DAILY [facility] Last Admin: 01/29/18 10:23 Dose: 100 mg Vital Signs - 8 hr 01/29/18 01/29/18 01/29/18 03:50 03:53 06:34 Temperature 98.9 F Pulse Rate 72 Respiratory 16 16 16 Rate Blood Pressure 144/68 (mmHg) O2 Sat by Pulse 97 Oximetry 01/29/18 01/29/18 07:38 10:23 Temperature 97.5 F Pulse Rate 78 Respiratory 16 16 Rate Blood Pressure 147/68 (mmHg) O2 Sat by Pulse 98 Oximetry Oxygen Devices in Use Now: None Appearance: Middle aged male sitting up on the edge of the bed, NAD Eyes: No Scleral Icterus Ears/Nose/Mouth/Throat: Mucous Membranes Moist Respiratory: Symmetrical Chest Expansion and Respiratory Effort, - - diminished breath sounds throughout Cardiovascular: NL Sounds; No Murmurs; No JVD, RRR, - - 2-3+ B/L LE edema Abdominal: NL Sounds; No Tenderness; No Distention Extremities: No Clubbing, Cyanosis Skin: No Nodules or Sclerosis Neurological: Alert and Oriented x 3 Result Diagrams: 01/29/18 05:52 01/29/18 05:52 Microbiology and Other Data: Microbiology 01/26/18 22:50 Urine Culture - Final Urine No Growth (<1,000 CFU/mL) 01/22/18 21:55 Aerobic Blood Culture - Final Blood Venous No Growth Day 5 Anaerobic Blood Culture - Final No Growth Day 5 01/22/18 21:55 Aerobic Blood Culture - Final Blood Venous No Growth Day 5 Anaerobic Blood Culture - Final No Growth Day 5 01/26/18 21:12 Aerobic Blood Culture - Preliminary Blood Line No Growth Day 1 Anaerobic Blood Culture - Preliminary No Growth Day 1 01/26/18 21:12 Aerobic Blood Culture - Preliminary Blood Line No Growth Day 1 Anaerobic Blood Culture - Preliminary No Growth Day 1 01/20/18 17:25 Nasal Screen MRSA (PCR) - Final Nasal Mrsa Not Detected Assess/Plan/Problems-Billing Mr Alcaraz is a 57 yo M who was found to have a RUL adenocarcinoma and was admitted post elective RUL lobectomy which was complicated by post operative bleeding requiring re-evaluation in the OR, delirium tremens and possible HCAP. - Patient Problems (1) HCAP (healthcare-associated pneumonia) Current Visit: Yes Status: Acute Code(s): J18.9 - PNEUMONIA, UNSPECIFIED ORGANISM SNOMED Code(s): 956445075 Comment: The patient developed post operative fever. He was started on broad spectrum Abx for possible HCAP. Now transitioned to doxycyline for another 3 days. (2) Alcohol abuse Current Visit: Yes Status: Acute Code(s): F10.10 - ALCOHOL ABUSE, UNCOMPLICATED SNOMED Code(s): 13871670 Comment: Pt went throught DTs while in the ICU. Now resolved. Encourage abstinence. (3) Adenocarcinoma, lung Current Visit: Yes Status: Acute Code(s): C34.90 - MALIGNANT NEOPLASM OF UNSP PART OF UNSP BRONCHUS OR LUNG SNOMED Code(s): 969348223 Comment: S/P elective RUL lobectomy w/subsequent exploration of postoperative hematoma and control of bleeding S/P suture ligation w/clipping of adjacent vessels. Management of chest tube and malignancy defered to surgery and oncology. (4) HTN (hypertension) Current Visit: Yes Status: Acute Code(s): I10 - ESSENTIAL (PRIMARY) HYPERTENSION SNOMED Code(s): 98845216 Comment: BP is mildly elevated. Add back HCTZ to home dose of metoprolol XL. Monitor BP. Will be getting IV lasix for marked LE edema. (5) DVT prophylaxis Current Visit: Yes Status: Acute Code(s): GXR6265 - SNOMED Code(s): 849549091 Comment: SCDs/ambulation (6) Full code status Current Visit: Yes Status: Acute Code(s): Z78.9 - OTHER SPECIFIED HEALTH STATUS SNOMED Code(s): 624481126 Status and Disposition: .
[2018-01-29] MEDS ORDERED: Polyethylene Glycol 3350* 17 GM PACKET PO SCH (11:36)
[2018-01-29] MEDS ORDERED: Magnesium Hydroxide LIQ* 30 ML UDC PO PRN (11:38)
[2018-01-29] MEDS ORDERED: Furosemide IV* 10 MG/ML 2 ML VIAL (20 MG) IV ONE (11:38)
[2018-01-29] MEDS ORDERED: Magnesium Sulfate 2 GM IV* 2 GM/50 ML BAG IVPB ONE (11:41)
[2018-01-29] MEDS: Hydrochlorothiazide TAB* 25 MG PO SCH (12:08)
[2018-01-29] MEDS: Docusate CAP* 100 MG PO SCH ×2 (12:09→20:24)
--- NOTE | 2018-01-29 14:56 | PN ---
Progress Note - Progress Note Date of Service: 01/29/18 SOAP: Subjective: Pt seen and examined. wants to go home Objective: Temp Pulse Resp BP Pulse Ox 98.3 F 69 16 150/65 99 01/29/18 12:05 01/29/18 12:05 01/29/18 14:02 01/29/18 12:05 01/29/18 12:05 Intake & Output 01/28/18 01/29/18 01/29/18 22:59 06:59 14:59 Intake Total 460 751 7030 Output Total 145 481 596 Balance 531 -11 634 a and ox3, nad lungs clear, no subq emphysema LEANN serous- removed incision cdi; no redness CT : resp variation, no airleak; >150cc/24hrs, dark red Assessment: s/p RU lobectomy, hd stable; decreasing CT output Plan: likely removal of Chest tube tomorrow pain control
[2018-01-29] MEDS: HYDROcodone/ACET. 7.5/325 LIQ* 15 ML UDC PO PRN ×2 (16:21→20:25)
[2018-01-29] MEDS: Senna TAB PO SCH (20:24)
[2018-01-30] MEDS: DOXYcycline IV* 100 MG in NS 0.9% 250 ML* 250 ML IVPB SCH (04:15)
[2018-01-30] MEDS: HYDROcodone/ACET. 7.5/325 LIQ* 15 ML UDC PO PRN ×2 (04:19→11:42)
[2018-01-30] MEDS ORDERED: Vancomycin Trough Check NOTE FOLLOW UP ONE (05:30)
[2018-01-30 05:47] LABS: EGFR Non-African American 112.5 (>60)
[2018-01-30 07:42] VITALS: BP 139/70
[2018-01-30] MEDS: Docusate CAP* 100 MG PO SCH (07:53)
[2018-01-30] MEDS: Hydrochlorothiazide TAB* 25 MG PO SCH (07:53)
[2018-01-30] MEDS: Famotidine TAB* 20 MG PO SCH (07:53)
[2018-01-30] MEDS: Folic Acid TAB* 1 MG PO SCH (07:53)
[2018-01-30] MEDS: Metoprolol Succinate XL TAB* 100 MG PO SCH (07:54)
[2018-01-30] MEDS: Thiamine TAB* 100 MG TAB PO SCH (07:54)
[2018-01-30] MEDS: Gabapentin CAP(*) 300 MG PO SCH (07:54)
[2018-01-30] MEDS: Multivitamins/Minerals TAB PO SCH (07:54)
--- NOTE | 2018-01-30 09:55 | PN ---
Progress Note - Progress Note Date of Service: 01/30/18 Note: POD#10 s/p lobectomy Afeb, VS noted Voiding well He reports appetite and bowels OK Pain control good Breathing easy, ambulating well Chest tube still with moderate drainage (appears old bloody) No air leak Incis clean, no infection Pleurevac changed to waterless system CVL removed Discharge home with new pleuevac. I have instructed patient in care of chamber I discussed pathology with him. I discussed with Dr Langley--change to oral doxy for 5 more days. F/U in office 01/01 Oncology F/U as outpt.
--- NOTE | 2018-01-30 11:41 | PN ---
Subjective Date of Service: 01/30/18 Interval History: Pt is feeling nervous about going home but also is happy to be going home to finish recovering from surgery. He is to follow up with Dr. Busby on Tuesday. He continues to have postoperative pain and pain at the CT site. His legs are still markedly swollen. Objective Active Medications: Hydrocodone Bitart/Acetaminophen (Nortab 7.5/325 Liq*) 15 ml PO TID PRN PRN Reason: PAIN Last Admin: 01/30/18 04:19 Dose: 15 ml Bisacodyl (Dulcolax Supp*) 10 mg [place] DAILY PRN PRN Reason: CONSTIPATION Docusate Sodium (Colace Cap*) 100 mg PO BID [facility] Last Admin: 01/30/18 07:53 Dose: 100 mg Famotidine (Pepcid Tab*) 20 mg PO DAILY [facility] Last Admin: 01/30/18 07:53 Dose: 20 mg Folic Acid (Folvite Tab*) 1 mg PO DAILY [facility] Last Admin: 01/30/18 07:53 Dose: 1 mg Gabapentin (Neurontin Cap(*)) 300 mg PO TID [facility] Last Admin: 01/30/18 07:54 Dose: 300 mg Heparin Sodium (Porcine) (Heparin Flush Picc/Ml/Cvc(*)) 1 - 3 ml FLUSH 0600, 1800 [facility]; Protocol Last Admin: 01/30/18 05:39 Dose: 2 ml Hydralazine HCl (Apresoline Iv*) 5 mg IV SLOW PU Q6H PRN PRN Reason: BLOOD PRESSURE Last Admin: 01/27/18 06:34 Dose: 5 mg Hydrochlorothiazide (Hydrodiuril Tab*) 12.5 mg PO QAM [facility] Last Admin: 01/30/18 07:53 Dose: 12.5 mg Doxycycline Hyclate 100 mg/ (Sodium Chloride) 250 mls @ 250 mls/hr IVPB Q12H [facility] Stop: 02/01/18 15:59 Last Admin: 01/30/18 04:15 Dose: 250 mls/hr Magnesium Hydroxide (Milk Of Magnesia Liq*) 30 ml PO Q6H PRN PRN Reason: CONSTIPATION Metoprolol Succinate (Toprol Xl Tab*) 100 mg PO DAILY [facility] Last Admin: 01/30/18 07:54 Dose: 100 mg Morphine Sulfate (Morphine Vial*) 2 mg IV Q4H PRN PRN Reason: PAIN - SEVERE Last Admin: 01/28/18 10:31 Dose: 2 mg Multivitamins/Minerals (Theragran/Minerals Tab*) 1 tab PO DAILY [facility] Last Admin: 01/30/18 07:54 Dose: 1 tab Oxycodone/Acetaminophen (Percocet 5/325 Tab*) 1 tab PO Q4H PRN PRN Reason: PAIN Last Admin: 01/28/18 10:32 Dose: 1 tab Oxycodone/Acetaminophen (Percocet 5/325 Tab*) 2 tab PO Q4H PRN PRN Reason: PAIN Last Admin: 01/29/18 03:53 Dose: 2 tab Polyethylene Glycol/Electrolytes (Miralax*) 17 gm PO DAILY [facility] Last Admin: 01/29/18 12:08 Dose: 17 gm Senna (Senokot Tab*) 1 tab PO BEDTIME [facility] Last Admin: 01/29/18 20:24 Dose: 1 tab Thiamine HCl (Vitamin B-1 Tab*) 100 mg PO DAILY [facility] Last Admin: 01/30/18 07:54 Dose: 100 mg Vital Signs - 8 hr 01/30/18 01/30/18 01/30/18 04:10 04:19 06:19 Temperature 98.1 F Pulse Rate 75 Respiratory 16 18 18 Rate Blood Pressure 135/70 (mmHg) O2 Sat by Pulse 95 Oximetry 01/30/18 01/30/18 01/30/18 07:21 07:54 08:20 Temperature 98.0 F Pulse Rate 66 Respiratory 18 16 18 Rate Blood Pressure 139/70 (mmHg) O2 Sat by Pulse 97 Oximetry 01/30/18 10:30 Temperature Pulse Rate Respiratory 16 Rate Blood Pressure (mmHg) O2 Sat by Pulse Oximetry Oxygen Devices in Use Now: None Appearance: Middle aged male sitting up in a chair, NAD Eyes: No Scleral Icterus Ears/Nose/Mouth/Throat: Mucous Membranes Moist Respiratory: Symmetrical Chest Expansion and Respiratory Effort, Clear to Auscultation - slightly diminshed throughout Cardiovascular: NL Sounds; No Murmurs; No JVD, RRR, - - 3+ LE edema Abdominal: NL Sounds; No Tenderness; No Distention Extremities: No Clubbing, Cyanosis Skin: No Nodules or Sclerosis Neurological: Alert and Oriented x 3 Result Diagrams: 01/29/18 05:52 01/30/18 05:08 Microbiology and Other Data: Microbiology 01/26/18 22:50 Urine Culture - Final Urine No Growth (<1,000 CFU/mL) 01/22/18 21:55 Aerobic Blood Culture - Final Blood Venous No Growth Day 5 Anaerobic Blood Culture - Final No Growth Day 5 01/22/18 21:55 Aerobic Blood Culture - Final Blood Venous No Growth Day 5 Anaerobic Blood Culture - Final No Growth Day 5 01/26/18 21:12 Aerobic Blood Culture - Preliminary Blood Line No Growth Day 1 Anaerobic Blood Culture - Preliminary No Growth Day 1 01/26/18 21:12 Aerobic Blood Culture - Preliminary Blood Line No Growth Day 1 Anaerobic Blood Culture - Preliminary No Growth Day 1 01/20/18 17:25 Nasal Screen MRSA (PCR) - Final Nasal Mrsa Not Detected Assess/Plan/Problems-Billing Mr Alcaraz is a 57 yo M who was found to have a RUL adenocarcinoma and was admitted post elective RUL lobectomy which was complicated by post operative bleeding requiring re-evaluation in the OR, delirium tremens and possible HCAP. - Patient Problems (1) HCAP (healthcare-associated pneumonia) Current Visit: Yes Status: Acute Code(s): J18.9 - PNEUMONIA, UNSPECIFIED ORGANISM SNOMED Code(s): 816149245 Comment: Continue doxycycline x5 more doses. He is coughing up clear sputum. (2) Alcohol abuse Current Visit: Yes Status: Acute Code(s): F10.10 - ALCOHOL ABUSE, UNCOMPLICATED SNOMED Code(s): 53446482 Comment: Pt went throught DTs while in the ICU. Now resolved. Encourage abstinence. (3) Adenocarcinoma, lung Current Visit: Yes Status: Acute Code(s): C34.90 - MALIGNANT NEOPLASM OF UNSP PART OF UNSP BRONCHUS OR LUNG SNOMED Code(s): 952558915 Comment: S/P elective RUL lobectomy w/subsequent exploration of postoperative hematoma and control of bleeding S/P suture ligation w/clipping of adjacent vessels. Management of chest tube and malignancy defered to surgery and oncology. Pt going home with portable drainage canister. Pt has been instructed to contact the surgerical office if it gets close to filling up. (4) HTN (hypertension) Current Visit: Yes Status: Acute Code(s): I10 - ESSENTIAL (PRIMARY) HYPERTENSION SNOMED Code(s): 77826974 Comment: BP under fair control on home medication regimen. For the LE edema he will keep his legs raised at home and trial TEDs. (5) DVT prophylaxis Current Visit: Yes Status: Acute Code(s): QWQ5990 - SNOMED Code(s): 712100770 Comment: SCDs/ambulation (6) Full code status Current Visit: Yes Status: Acute Code(s): Z78.9 - OTHER SPECIFIED HEALTH STATUS SNOMED Code(s): 045070363 Status and Disposition: .
--- NOTE | 2018-01-31 04:04 | DS ---
CC: [facility]; Ivelisse Gold MD; [facility] * DISCHARGE SUMMARY: DATE OF ADMISSION: 01/20/18 DATE OF DISCHARGE: 01/30/18 PRINCIPAL ADMITTING DIAGNOSIS: Carcinoma of the right upper lobe of lung. SECONDARY DIAGNOSES: 1. Alcohol abuse. 2. Postoperative delirium. 3. Postoperative hemorrhage. 4. Left lower lobe infiltrate. HOSPITAL COURSE: The patient came to the hospital on 01/20/18. He was taken to the operating room where he underwent right upper lobectomy with lymph node dissection. He was having persistent bleeding via the chest tube and was taken back to the operating room later that same night, there was not at that time any gross bleeder, it seemed to be a more generalized bleeding from small sites and he was returned to intensive care unit postoperatively he did develop delirium. He was intubated and kept on the ventilator for a couple of days for that. He also had a central line placed around that time. He was also found to have a left lower lobe infiltrate and was treated with antibiotics for that. He was followed from the very beginning by the hospitalist service who was taking care of his alcohol protocol. Ultimately, he made nice recovery from all of this. He was extubated and brought out to the floor. The hemorrhaging stopped and his blood count stabilized. He was also seen in consultation by Hematology. Dr. Carter had seen him previously. Dr. Ren saw him acutely in the phase of the bleeding to rule out any hematologic reason for the bleeding. There was some slight decrease in some of the coagulation factors, although I do not think Dr. Ren thought that this was a primary contributor to the bleeding. Ultimately, his air leak sealed. He continued to have drainage from the chest tube. He was ultimately sent home with a waterless chest tube system. His Etienne- Zamudio had been removed. His central line had been removed. He was tolerating oral intake. He was ambulating very well around the floor. His breathing was easy and unlabored. I had reviewed the pathology with him. He was discharged with instructions. He will follow up with me in 2 days' time to take out his michelle and to examine the chest tube site and furthermore, he may need fluid drained from the collection chamber. He will continue to follow with Oncology as well. [id number]/[facility] #: [id number] [facility]
== END 2018-01-30 14:15 | disposition home or self-care (01) | DRG 163 ==
LOC: AA 10:14 → ICU 19:15 → SSU 01-27 10:57
PROVIDERS: ADMIT Surgery; ATTEND Surgery
PROC: 0BTC0ZZ Resection of Right Upper Lung Lobe, Open Approach (ICD-10-PCS; 2018-01-20)
PROC: 07B70ZZ Excision of Thorax Lymphatic, Open Approach (ICD-10-PCS; 2018-01-20)
PROC: 0W380ZZ Control Bleeding in Chest Wall, Open Approach (ICD-10-PCS; principal; 2018-01-20 12:00)
PROC: 30233N1 Transfusion of Nonautologous Red Blood Cells into Peripheral Vein, Percutaneous Approach (ICD-10-PCS; 2018-01-21)
PROC: 30233R1 Transfusion of Nonautologous Platelets into Peripheral Vein, Percutaneous Approach (ICD-10-PCS; 2018-01-21)
PROC: 02HV33Z Insertion of Infusion Device into Superior Vena Cava, Percutaneous Approach (ICD-10-PCS; 2018-01-21)
PROC: 0BH18EZ Insertion of Endotracheal Airway into Trachea, Via Natural or Artificial Opening Endoscopic (ICD-10-PCS; 2018-01-23)
PROC: 5A1935Z Respiratory Ventilation, Less than 24 Consecutive Hours (ICD-10-PCS; 2018-01-23)
DX: C34.11 Malignant neoplasm of upper lobe, right bronchus or lung (principal); Y90.9 Presence of alcohol in blood, level not specified; J98.2 Interstitial emphysema; I10 Essential (primary) hypertension; F17.210 Nicotine dependence, cigarettes, uncomplicated; J98.11 Atelectasis; J18.9 Pneumonia, unspecified organism; J95.830 Postprocedural hemorrhage of a respiratory system organ or structure following a respiratory system procedure; I47.1 Supraventricular tachycardia; D62 Acute posthemorrhagic anemia; D68.9 Coagulation defect, unspecified; F10.231 Alcohol dependence with withdrawal delirium; J95.812 Postprocedural air leak; I95.81 Postprocedural hypotension; Y83.8 Other surgical procedures as the cause of abnormal reaction of the patient, or of later complication, without mention of misadventure at the time of the procedure; Y92.239 Unspecified place in hospital as the place of occurrence of the external cause; Z78.1 Physical restraint status; S27.0XXD Traumatic pneumothorax, subsequent encounter; W15.XXXD Fall from cliff, subsequent encounter; Z87.81 Personal history of (healed) traumatic fracture; Z87.09 Personal history of other diseases of the respiratory system; Z88.8 Allergy status to other drugs, medicaments and biological substances
CPT/HCPCS: 36415; 71045; 80048; 80053; 80202; 81003; 81015; 82140; 82565; 83605; 83735; 84100; 84520; 85025; 85027; 85049; 85220; 85240; 85250; 85270; 85384; 85610; 85730; 86850; 86900; 86901; 86922; 87040; 87086; 87641; 88300; 88305; 88309; 93005; 93306; 94002; 94003; 94640; 99232; 99233; 99406; A9270-GY; C1776; G8978-GP-CJ; G8979-GP-CI; J0330; J0360; J0690; J1100; J1170; J1630; J1644; J1885; J1940; J2001; J2060; J2250; J2270; J2543; J2704; J2710; J2795; J3010; J3370; J3475; J3490; P9035; P9040

== ENCOUNTER 2019-05-06 10:18 | Inpatient (IN) | payer OTHER ==
--- NOTE | 2019-05-06 10:24 | ED ---
Shortness of Breath - HPI Summary HPI Summary: This patient is a 59 year old male brought in by EMS presenting to [facility] with a chief complaint of general illness. EMS states he went to see his PCP a couple days ago and they told him to call for EMS if his condition worsened. He reports weakness, cough, SOB, and rhinorrhea. EMS states he was hypoxic and placed him on O2. The patient is not on oxygen at home. He denies fevers, and chest pain. Per medical records he has a Hx of COPD and lung cancer status post lobectomy. Gabapentin 300 mg PO TID #0 07/18/15 [History Confirmed 01/20/18] Hydrocodone/Acetaminophen [Hydrocodone-Acetamin 7.5-300] 1 tab PO TID PRN [History Confirmed 01/20/18] Metoprolol Succinate XL TAB* [Toprol XL TAB*] 100 mg PO QAM 04/27/17 [History Confirmed 01/20/18] hydroCHLOROthiazide [Hydrochlorothiazide] 12.5 mg PO QAM 04/27/17 [History Confirmed 01/20/18] DOXYcycline CAP(*) [DOXYcycline 100MG CAP(*)] 100 mg PO BID #5 cap MDD 2 [Rx] Hydrocodone/Acetaminophen [Hydrocodone-Acetamn 7.5-325/15] 15 ml PO Q6H PRN # 240 solution MDD 60ml 01/30/18 [Rx] - History of Current Complaint Hx Obtained From: Patient, EMS Onset/Duration: Lasting Hours, Lasting Days Dyspnea At: Rest - Allergy/Home Medications Allergies/Adverse Reactions: Allergies Allergy/AdvReac Type Severity Reaction Status Date / Time lisinopril Allergy Swelling Verified 05/06/19 11:23 Of Face,Lips,& Throat Home Medications: Home Medications Gabapentin 300 mg PO TID #0 07/18/15 [History Confirmed 05/06/19] Hydrocodone/Acetaminophen [Hydrocodone-Acetamin 7.5-300] 1 tab PO TID PRN [History Confirmed 05/06/19] Metoprolol Succinate XL TAB* [Toprol XL TAB*] 100 mg PO QAM 04/27/17 [History Confirmed 05/06/19] hydroCHLOROthiazide [Hydrochlorothiazide] 12.5 mg PO QAM 04/27/17 [History Confirmed 05/06/19] DOXYcycline CAP(*) [DOXYcycline 100MG CAP(*)] 100 mg PO BID #5 cap MDD 2 [Rx Confirmed 05/06/19] Hydrocodone/Acetaminophen [Hydrocodone-Acetamn 7.5-325/15] 15 ml PO Q6H PRN # 240 solution MDD 60ml 01/30/18 [Rx Confirmed 05/06/19] PMH/Surg Hx/FS Hx/Imm Hx Endocrine/Hematology History: Denies: Hx Anticoagulant Therapy, Hx Blood Disorders, Hx Diabetes Cardiovascular History: Reports: Hx Hypertension - ON MEDS, Other Cardiovascular Problems/Disorders Denies: Hx Pacemaker/ICD Respiratory History: Reports: Hx Chronic Obstructive Pulmonary Disease (COPD), Other Respiratory Problems/Disorders - Left pneumothorax from fall 12/01/16, R Lobectomy 01/20/2018 Denies: Hx Asthma GI History: Reports: Other GI Disorders - Ruptured spleen from fall 12/01/16- repaired History: Reports: Other Problems/Disorders - Nocturia x5 per night Denies: Hx Renal Disease Musculoskeletal History: Reports: Hx Arthritis - Back and back of legs, Hx Back Problems, Other Musculoskeletal History - fell off rut into [place] floor--fx pelvis and 5 ribs Sensory History: Reports: Hx Contacts or Glasses - glasses and contacts-will wear glasses day of surgery Denies: Hx Cataracts, Hx Hearing Aid Opthamlomology History: Reports: Hx Contacts or Glasses - glasses and contacts- will wear glasses day of surgery Denies: Hx Cataracts Neurological History: Denies: Other Neuro Impairments/Disorders Psychiatric History: Reports: Hx Anxiety - claustrophobia Denies: Hx Panic Disorder, Other Psychiatric Issues/Disorders - Cancer History Cancer Type, Location and Year: LUNG - Surgical History Surgery Procedure, Year, and Place: LEFT HIP ORIF, SPLEEN LAC REPAIR, RIGHT UPPER LOBECTOMY Hx Anesthesia Reactions: No Infectious Disease History: Reports: Hx Hepatitis Denies: Hx Human Immunodeficiency Virus (HIV), Hx of Known/Suspected MRSA, Hx Shingles, Hx Tuberculosis, History Other Infectious Disease - Family History Known Family History: Negative: Hypertension - Social History Alcohol Use: Daily Alcohol Amount: 6 beers a day Hx Substance Use: Yes Substance Use Type: Reports: Marijuana Substance Use Comment - Amount & Last Used: unknown Hx Tobacco Use: Yes Smoking Status (MU): Heavy Every Day Tobacco Smoker Type: Cigarettes Amount Used/How Often: 2 homemade cigs per day-pipe tobacco currently- 5-6 per day for 40 years Have You Smoked in the Last Year: Yes Review of Systems Negative: Fever Positive: Nasal Discharge Negative: Chest Pain Positive: Shortness Of Breath, Cough, Other - Hypoxia All Other Systems Reviewed And Are Negative: Yes Physical Exam - Summary Physical Exam Summary: VITAL SIGNS: Reviewed. GENERAL: Patient is a well-developed and nourished MALE who is lying comfortable in the stretcher. Patient is in acute respiratory distress, speaking in partial sentences. HEAD AND FACE: No signs of trauma. No ecchymosis, hematomas or skull depressions. No sinus tenderness. EYES: PERRLA, EOMI x 2, No injected conjunctiva, no nystagmus. EARS: Hearing grossly intact. Ear canals and tympanic membranes are within normal limits. MOUTH: Oropharynx within normal limits. NECK: Supple, trachea is midline, no adenopathy, no JVD, no carotid bruit, no c- spine tenderness, neck with full ROM. CHEST: Symmetric, no tenderness at palpation. LUNGS: Clear to auscultation bilaterally. No wheezing. Gurgling crackles throughout. CVS: Regular rate and rhythm, S1 and S2 present, no murmurs or gallops appreciated. ABDOMEN: Soft, non-tender. No signs of distention. No rebound, no guarding, and no masses palpated. Bowel sounds are normal. EXTREMITIES: FROM in all major joints, no edema, no cyanosis or clubbing. NEURO: Alert and oriented x 3. No acute neurological deficits. Speech is normal and follows commands. SKIN: Dry and warm. Triage Information Reviewed: Yes Vital Signs On Initial Exam: Temp Pulse Resp BP Pulse Ox 98.3 F 122 26 158/98 98 05/06/19 10:30 05/06/19 10:41 05/06/19 11:00 05/06/19 10:30 05/06/19 10:41 Vital Signs Reviewed: Yes Procedures - Sedation Patient Received Moderate/Deep Sedation with Procedure: No Diagnostics - Laboratory Result Diagrams: 05/06/19 10:53 05/06/19 15:22 Lab Statement: Any lab studies that have been ordered have been reviewed, and results considered in the medical decision making process. - Radiology CXR Radiology Interpretation Completed By: Radiologist Summary of Radiographic Findings: Interval development of left lower lobe pneumonia. A follow-up chest x-ray after an appropriate course of therapy is advised to as certain resolution. ED Provider has reviewed this report. - EKG 1024 Cardiac Rate: Tachycardia - 121 BPM EKG Rhythm: Sinus Tachycardia EKG Comparison: No Significant Change - 01/23/19 Summary of EKG Findings: RBBB. ED Physician has reviewed and interpreted this EKG. Re-Evaluation - Re-Evaluation First Eval Re-Evaluation Time: 11:24 Comment: Patient reports chest pain. States did not take home medications this morning. Course/Dx - Course Assessment/Plan: This patient is a 59 year old male brought in by EMS presenting to [facility] with a chief complaint of general illness. EMS states he went to see his PCP a couple days ago and they told him to call for EMS if his condition worsened. He reports weakness, cough, SOB, and rhinorrhea. EMS states he was hypoxic and placed him on O2. The patient is not on oxygen at home. He denies fevers, and chest pain. Per medical records he has a Hx of COPD and lung cancer status post lobectomy. 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 The oxygen saturation in the ED is about 80% room air. Chest x-ray showed left lower lobe pneumonia. Patient was started with Rocephin and azithromycin after blood cultures were obtained. The patient was placed in the Vapotherm since the patient is hypoxic. Blood test w/o a significant abnormality except for absolute neutrophils of 7.8, lymphocytes of 13, sodium 128, potassium 3.3, chloride 86,: Paroxysms 19, anion gap. 23, BUN is 56, creatinine 3.86, lactic acid is 6.3, AST is 51, CRP is 370, BNP is 205. Influenza A&B is negative. ABG shows a pH of 7.53, PCO2 is 34, PO2 is 46 and O2 sat is 77. This was before the Vapotherm. Patient was also given potassium for the hypokalemia and hydrocodone for his chronic pain. At this time I discussed my physical exam and findings with Dr. Zhou from the ICU services who came and assessed the patient. He accepted the patient to the ICU. The patient was feeling better at this time. - Diagnoses Differential Diagnosis/HQI/PQRI: Positive: Airway Obstruction, Bronchitis, CHF, COPD Exacerbation, AK, Pneumonia, Pulmonary Edema Provider Diagnoses: Pneumonia, Hypoxia, Acute renal failure, Hypokalemia - Critical Care Time Critical Care Time: 75-104 min - 75 min Discharge ED - Sign-Out/Discharge Documenting (check all that apply): Patient Departure - Admission to ICU, accepted by Dr. Zhou. - Discharge Plan Condition: Stable Disposition: ADMITTED TO [facility] - Billing Disposition and Condition Condition: STABLE Disposition: Admitted to [facility] - Attestation Statements Document Initiated by Sheree: Yes Documenting Scribe: Freeman Lozoya Provider For Whom Sheree is Documenting (Include Credential): Ole Welsh MD Scribe Attestation: Freeman Busby scribed for Ole Welsh MD on 05/06/19 at 2100. Scribe Documentation Reviewed: Yes Provider Attestation: The documentation as recorded by the Freeman delgadillo accurately reflects the service I personally performed and the decisions made by Ole cook MD Status of Scribe Document: Viewed
[2019-05-06] MEDS ORDERED: Albuterol/Ipratropium NEB.SOL* Albuterol 2.5 MG/Ipratropium 0.5 MG 3 ML INH ONE (10:25)
[2019-05-06] MEDS ORDERED: cefTRIAXone(*) 1 GM in NS 0.9% 50 ML* 50 ML IVPB ONE (10:27)
[2019-05-06] MEDS ORDERED: cefTRIAXone(*) 1 GM ADVAN/BAG ONE (10:35)
[2019-05-06] MEDS ORDERED: Azithromycin 500 mg/250 ml NS 500 MG/250 ML BAG IVPB ONE (10:53)
[2019-05-06 11:04] LABS: Hematocrit 42 % (42-52); Hemoglobin 14.4 g/dL (14.0-18.0); Mean Corpuscular HGB Conc 35 g/dL (31-36); Mean Corpuscular Hemoglobin 34 pg (27-31); Mean Corpuscular Volume 100 fL (80-94); Mean Platelet Volume 9.8 fL (7.4-10.4); Platelet Count 161 10^3/uL (150-450); Red Cell Distribution Width 14 % (10-15); White Blood Count 8.1 10^3/uL (3.5-10.8)
[2019-05-06 11:20] LABS: Albumin 3.5 g/dL (3.2-5.2); Albumin/Globulin Ratio 0.8 (1-3); BUN/Creatinine Ratio 14.5 (8-20); C Reactive Protein 370.21 mg/L (<8.01); Calcium 9.7 mg/dL (8.6-10.3); EGFR African American 19.5 (>60); EGFR Non-African American 16.1 (>60); Globulin 4.4 g/dL (2-4); Potassium 3.3 mmol/L (3.5-5.0); Total Bilirubin 0.6 mg/dL (0.2-1.0); Total Protein 7.9 g/dL (6.4-8.9)
[2019-05-06 11:22] LABS: Troponin I 0.02 ng/mL (<0.03)
[2019-05-06] MEDS ORDERED: HYDROcodone/ACETAMIN 5-325 MG* 1 TAB PO ONE (11:22)
[2019-05-06 11:24] LABS: CKMB ng/mL 6.2 ng/mL (0.6-6.3)
[2019-05-06] MEDS ORDERED: HYDROcodone/ACET. 7.5/325 LIQ* 15 ML UDC PO ONE (11:25)
[2019-05-06] MEDS ORDERED: NS 0.9% 1000 ML** 1,000 ML IV ONE (11:36)
[2019-05-06 11:37] LABS: ABS Eosinophils 0.1 10^3/ul (0-0.6); ABS Lymphocytes 0.1 10^3/ul (1.0-4.8); ABS Neutrophils 7.8 10^3/ul (1.5-7.7); Eosinophil % 1.1 %; Lymphocyte % 1.6 %; Nucleated Red Blood Cells % 0.5
[2019-05-06] MEDS ORDERED: Potassium Chloride* LIQUID 20 MEQ/15 ML UDC PO ONE (11:53)
[2019-05-06 12:00] LABS: Influenza A Molecular Negative (Negative); Influenza B Molecular Negative (Negative)
[2019-05-06] MEDS ORDERED: NS 0.9% 1000 ML** 1,910 ML IV ONE (12:05)
--- NOTE | 2019-05-06 14:04 | PN ---
Sepsis Event Evaluation Date of Evaluation: 05/06/19 Time of Evaluation: 14:00 - 3 hour reassessment. Current Stage of Sepsis: Severe Sepsis Vital Signs - Last 12 Hours: Vital Signs - 12 hr Temp Pulse Resp BP Pulse Ox 05/06/19 13:30 100 22 164/104 100 05/06/19 13:14 17 05/06/19 13:10 37.2 C 102 24 164/104 100 05/06/19 12:53 104 25 84/72 100 05/06/19 12:00 111 16 99 05/06/19 11:34 28 05/06/19 11:00 26 05/06/19 10:41 122 23 98 05/06/19 10:31 119 34 97 05/06/19 10:30 36.8 C 122 29 158/98 96 05/06/19 10:28 126 27 158/98 97 Lactic Acid: 05/06/19 10:52 Lactic Acid 6.3 H* - Cardiopulmonary Exam Capillary Refill: Immediate Respiratory: Symmetrical Chest Expansion and Respiratory Effort Cardiovascular: NL Sounds; No Murmurs; No JVD, RRR - Peripheral Pulse Exam Radial Pulses: Bilateral Normal Pedal Pulses: Bilateral Normal - Skin Exam Skin Exam: Normal Turgor - Dermott Coma Scale Best Eye Response: 4 - Spontaneous Best Motor Response: 6 - Obeys Commands Best Verbal Response: 5 - Oriented - Repeat Lactate pending for the 4 hour draw. Coma Scale Total: 15 Assess/Plan/Problems-Billing Assessment:
[2019-05-06] MEDS: Lactated Ringers 1000 ML Bag* 1,000 ML IV SCH (14:33)
[2019-05-06] MEDS: Heparin VIAL(*) 5000 UNITS/ML VIAL (FIVE THOUSAND) SUBCUT SCH ×2 (14:33→21:45)
--- NOTE | 2019-05-06 15:12 | HP ---
CRITICAL CARE ADMISSION NOTE: DATE OF ADMISSION: HISTORY OF PRESENT ILLNESS: The patient is a 59-year-old male brought in with a 4- day history of pr oductive cough, some chills, and progressive dyspnea for which he has been unable to sleep for the 4 days. In the ED, he was found to be severely hypoxemic with a PO2 in the 40s. He was placed on high flow nasal cannula. Chest x-ray reveals left lower lobe pneumonia. ICU is consulted for admis frances and management. On my arrival to bedside in the ED, he is awake and alert and appropriate. He is saturating well, but is unable to speak in full sentences. His sense of humor is intact. He adolph es any chest pain. Denies any radiation down his arms. He denies abdominal discomfort. He does rep ort the productive cough, but mostly he describes it was his inability to get comfortable in bed with progressive dyspnea in recent days. PAST MEDICAL HISTORY: Significant for COPD, lung cancer, status post right upper lobectomy. He is a lso status post multiple trauma of a fall from significant height with a liver laceration and multipl e fractured long bones for which he was hospitalized at [facility] in November 2016. He d oes report a remote tobacco history in the range of 15 years, at what we will call half a pack per da y. He reports it was 2-3 self-rolled, nonfiltered cigarettes generously filled with tobacco. MEDICATIONS: His medications at home included: 1. Gabapentin 300 mg p.o. t.i.d. 2. Hydrocodone/acetaminophen 7.5/300 one tab p.o. t.i.d. p.r.n. 3. Metoprolol succinate XL 100 mg p.o. q.a.m. 4. Hydrochlorothiazide 12.5 mg p.o. q.a.m. 5. He is recently started on some doxycycline for his productive cough. ALLERGIES: LISINOPRIL causing angioedema. FAMILY HISTORY: Noncontributory. He denies any family history of hypertension. SOCIAL HISTORY: He drinks approximately 6 beers a day. He also uses marijuana. Otherwise, he is not actively smoking any longer according to his report to me, though he apparently told the ED kenn israel different. He is generally independent of activities of daily living with an excellent exercise to lerance by his report. REVIEW OF SYSTEMS: He denies focal motor weakness, visual change, headache, or neck stiffness. He d enies disorientation. He denies hemoptysis or hematemesis. He denies nausea, vomiting, or diarrhea. He reports compliance with the medication regimen. Denies any recent weight loss. PHYSICAL EXAMINATION GENERAL: He is a well-developed, slight of build white male, in moderate respiratory distress. VITAL SIGNS: Temperature at 98.3 degrees, heart rate at 120, respiratory rate in the mid 20s, blood pressure 158/98, saturating 99% on 100% FiO2 at 30 L/min via high flow nasal cannula when I saw him d uring my exam. HEENT: He is normocephalic, atraumatic. Pupils equal reactive to light. NECK: Supple, nontender, without JVD. LUNGS: His lungs have rales and rhonchi bilaterally. HEART: His S1, S2 regular and tachycardic. ABDOMEN: Soft, nontender, nondistended with positive bowel sounds. EXTREMITIES: Lower extremities are without edema. NEUROLOGIC: He is alert and oriented and grossly nonfocal. DIAGNOSTIC STUDIES/LAB DATA: Laboratory evaluation is revealing a white blood cell count of 8 with 13 bands, hemoglobin of 14, platelet count of 161. Serum sodium 128, potassium 3.3, chloride 86, bic arb 19, BUN and creatinine 56/3.8. Chest x-ray showing left lower lobe infiltrate and evidence of his old right upper lobectomy with a m issing rib. EKG is sinus tach, right bundle, left anterior hemiblock. When compared to prior from 2018, the righ t bundle is actually old and he is actually less tachycardic. ASSESSMENT AND PLAN: This is a 59-year-old male with chronic obstructive pulmonary disease who prese nts with left lower lobe pneumonia and acute hypoxic respiratory failure as well as severe sepsis. Parul leyva has been started on broad antibiotics in the form of ceftriaxone and Zithromax, which we will mario alberto nue. I am screening him for flu. Blood cultures have been sent, sputum has been sent, urine has bee n sent. We will do serial lactate and reevaluate his resuscitation. He is getting 2 L as his initia l bolus, hopefully that will bring his heart rate down. We will see how much fluid he can handle wit h respect to how much more pneumonia may be present on that film that we do not yet see in his state of dehydration, though I would like to get ahead of his acute kidney injury and obviously his lactic academia, but we may be more thoughtful about threading a needle there to incompletely manage both, b ut at the same time avoid intubation as long as the trend is general improvement. He gives no angina l equivalents and he actually looks fairly nontoxic for the situation. We will see where he takes us in the coming hours. I have had a code status discussion with him, he is clear that we can use any and all modalities to support him as long as he will still have a good quality upon discharge. He mccain s a significant splenic injury in the past. It is not entirely clear whether he was vaccinated at at time or how much splenic function he still has, but we may want to look at vaccination prior to ramos newberry. He does mention that he did not have a flu shot this year and I think we should do that as well before he is discharged. I do expect him to turn around in the coming 12 hours. For now, we reshma l keep him on clears just in case he deteriorates, we will not have a full stomach for intubation. I have ordered routine morning labs as well as the serial lactate and a followup chest x-ray. I have answered all his questions to his expressed satisfaction. TIME SPENT: The aggregate time providing critical care as well as personal interpreting multiple lab oratory evaluations, imaging studies, reviewing the medical records, and discussing the case other ph ysicians including the ED attending, Dr. Welsh, as thus far exceeded 40 minutes. [id number]/[facility] #: [id number]
[2019-05-06] MEDS: HYDROcodone/ACET. 7.5/325 LIQ* 15 ML UDC PO PRN ×4 (15:31→23:38)
[2019-05-06 15:52] LABS: Albumin 2.9 g/dL (3.2-5.2); Albumin/Globulin Ratio 0.8 (1-3); BUN/Creatinine Ratio 16.8 (8-20); Calcium 8.3 mg/dL (8.6-10.3); EGFR African American 23.6 (>60); EGFR Non-African American 19.5 (>60); Globulin 3.6 g/dL (2-4); Total Bilirubin 0.5 mg/dL (0.2-1.0); Total Protein 6.5 g/dL (6.4-8.9)
[2019-05-06 18:02] LABS: Urine Appearance Clear; Urine Bilirubin Negative (Negative); Urine Blood 1+ (Negative); Urine Color Yellow; Urine Glucose Negative (Negative); Urine Ketones Negative (Negative); Urine Nitrite Negative (Negative); Urine Protein 1+(30 mg/dL) (Negative); Urine Specific Gravity 1.014 (1.010-1.030); Urine Urobilinogen Negative (Negative)
[2019-05-06 18:06] LABS: Urine Bacteria Absent (Absent); Urine Red Blood Cell Trace(0-2/hpf) (Absent); Urine Squamous Epithelial Cell Present (Absent); Urine White Blood Cell Trace(0-5/hpf) (Absent)
[2019-05-06] MEDS ORDERED: LORazepam TAB(*) 1 MG PO SCH (23:00)
[2019-05-06] MEDS ORDERED: LORazepam TAB(*) 0.5 MG ONE (23:36)
[2019-05-07] MEDS ORDERED: LORazepam TAB(*) 0.5 MG PO ONE ×2 (00:01→22:00)
[2019-05-07] MEDS: Lactated Ringers 1000 ML Bag* 1,000 ML IV SCH ×2 (00:53→14:05)
[2019-05-07 04:14] LABS: Hematocrit 34 % (42-52); Hemoglobin 11.4 g/dL (14.0-18.0); Mean Corpuscular HGB Conc 34 g/dL (31-36); Mean Corpuscular Hemoglobin 34 pg (27-31); Mean Corpuscular Volume 99 fL (80-94); Mean Platelet Volume 9.7 fL (7.4-10.4); Platelet Count 128 10^3/uL (150-450); Red Blood Count 3.37 10^6 /uL (4.18-5.48); Red Cell Distribution Width 14 % (10-15); White Blood Count 12.7 10^3/uL (3.5-10.8)
[2019-05-07 04:31] LABS: Albumin 2.7 g/dL (3.2-5.2); Albumin/Globulin Ratio 0.8 (1-3); BUN/Creatinine Ratio 25.3 (8-20); Calcium 8.2 mg/dL (8.6-10.3); EGFR African American 32.9 (>60); EGFR Non-African American 27.2 (>60); Globulin 3.5 g/dL (2-4); Magnesium 1.6 mg/dL (1.9-2.7); Phosphorus 3.7 mg/dL (2.5-5.0); Potassium 3.5 mmol/L (3.5-5.0); Total Bilirubin 0.6 mg/dL (0.2-1.0); Total Protein 6.2 g/dL (6.4-8.9)
[2019-05-07] MEDS ORDERED: Magnesium Oxide TAB* 400 MG PO ONE (04:45)
[2019-05-07 05:06] LABS: ABS Lymphocytes 0.2 10^3/ul (1.0-4.8); ABS Neutrophils 12.5 10^3/ul (1.5-7.7); Eosinophil % 0.1 %; Lymphocyte % 1.7 %; Nucleated Red Blood Cells % 0.3
[2019-05-07] MEDS: Heparin VIAL(*) 5000 UNITS/ML VIAL (FIVE THOUSAND) SUBCUT SCH ×3 (05:11→22:25)
[2019-05-07] MEDS: HYDROcodone/ACET. 7.5/325 LIQ* 15 ML UDC PO PRN ×2 (05:11→15:10)
[2019-05-07] MEDS ORDERED: Magnesium Sulfate IV* 3 GM in NS 0.9% 100 ML* 100 ML IVPB ONE (08:40)
[2019-05-07] MEDS ORDERED: Metoprolol Tartrate IV* 1 MG/ML 5 ML VIAL IV ONE (08:45)
[2019-05-07] MEDS ORDERED: Metoprolol Tartrate IV* 1 MG/ML 5 ML VIAL ONE (08:49)
--- NOTE | 2019-05-07 08:59 | PN ---
Date of Service: 05/07/19 Critical Care Services: Patient seen and examined. Initially off vapotherm this morning 2/2 adequate sats in the high 90s. Able to tolerate OOB to chair and no acute SOB. However, patient started to have increase in productive cough with desaturation, then had several bouts of self limiting tachy arrhythmia. Difficult to identify rhythm, in single lead, unable to capture EKG before rhythm broke. Did appear to be SVT, but with RBBB, is difficult to say. Rhythm is now sinus tach with multiple PVCs. Patient denies any chest pain or palpitations during these events. No fevers or chills, no SOB, although his WOB does appear to be increasing. Vital Signs: Temp Pulse Resp BP SpO2 FiO2 98.1 F 89 20 153/86 95 65 05/07/19 04:00 05/07/19 07:00 05/07/19 07:00 05/07/19 07:00 05/07/19 07:00 05/06 04:00 Physical Exam: General: Alert, NAD HEENT: Normocephalic, atraumatic, non-icteric sclera, moist oral mucosa Neck: soft, supple, no JVD CV: tachycardic, regular, no murmurs or rubs Pulm/Chest: course throughout lung [place] with bilateral rhonchi, mild left expiratory wheeze Abdomen/GI: soft, nontender, nondistended, +BS noted MSK/Skin: warm, dry, intact, +2 pulses+, no edema or cyanosis Neuro: A&Ox3, no gross focal deficits Psych: Appropriate affect and mood Fluid Balance (Past 24 Hours): Intake & Output 05/05/19 05/06/19 05/07/19 05/08/19 06:59 06:59 06:59 06:59 Intake Total 2393 Output Total 850 150 Balance 1543 -150 Weight 145 lb 1.027 oz Intake: IV Fluids 2393 LR 1343 NS (0.9%) 1000 Output: Urine 700 150 Hilton 150 Other: Estimated Void Large # Voids 1 Labs: Laboratory Results - last 24 hr 05/06/19 05/06/19 05/06/19 10:34 10:52 10:52 WBC RBC Hgb Hct MCV MCH MCHC RDW Plt Count MPV Neut % (Auto) Lymph % (Auto) Routt % (Auto) Eos % (Auto) Baso % (Auto) Absolute Neuts (auto) Absolute Lymphs (auto) Absolute Monos (auto) Absolute Eos (auto) Absolute Basos (auto) Absolute Nucleated RBC Immature Gran % Neutrophils % Band Neutrophils % Lymphocytes % Monocytes % Nucleated RBC % Nucleated RBCs/100 WBC Toxic Granulation Dohle Bodies Normal RBC Morphology Macrocytosis Patient Temperature Not Reportable ABG pH 7.33 L ABG pH (Temp Correct) Not Reportable ABG pCO2 34 L ABG pCO2 (Temp Corrct Not Reportable ABG pO2 46 L* ABG pO2 (Temp Correct Not Reportable ABG HCO3 18.8 L ABG O2 Saturation 77.6 L ABG Base Excess -7.1 L Respiration Rate Not Reportable O2 Delivery Device oxymask Ventilator Type Not Reportable Vent Mode Not Reportable FiO2 15 Inspiratory Time Not Reportable PEEP Not Reportable Pressure Support Not Reportable Pressure Control Not Reportable EPAP Not Reportable IPAP Not Reportable BiPAP Not Reportable Sodium Potassium Chloride Carbon Dioxide Anion Gap BUN Creatinine Est GFR ( Amer) Est GFR (Non-Af Amer) BUN/Creatinine Ratio Glucose Lactic Acid 6.3 H* Calcium Ionized Calcium Phosphorus Magnesium Total Bilirubin AST ALT Alkaline Phosphatase Total Creatine Kinase CK-MB (CK-2) Troponin I C-Reactive Protein B-Natriuretic Peptide 205 H Total Protein Albumin Globulin Albumin/Globulin Ratio Urine Color Urine Appearance Urine pH Ur Specific [place] Urine Protein Urine Ketones Urine Blood Urine Nitrate Urine Bilirubin Urine Urobilinogen Ur Leukocyte Esterase Urine WBC (Auto) Urine RBC (Auto) Ur Squamous Epith Cells Urine Bacteria Hyaline Casts Urine Glucose Influenza A (Rapid) Influenza B (Rapid) 05/06/19 05/06/19 05/06/19 10:53 10:53 11:38 WBC 8.1 RBC 4.20 Hgb 14.4 Hct 42 MCV 100 H MCH 34 H MCHC 35 RDW 14 Plt Count 161 MPV 9.8 Neut % (Auto) 97.0 Lymph % (Auto) 1.6 Routt % (Auto) 0.2 Eos % (Auto) 1.1 Baso % (Auto) 0.1 Absolute Neuts (auto) 7.8 H Absolute Lymphs (auto) 0.1 L Absolute Monos (auto) 0.0 Absolute Eos (auto) 0.1 Absolute Basos (auto) 0.0 Absolute Nucleated RBC 0.0 Immature Gran % 13.0 H Neutrophils % 87.0 Band Neutrophils % 13.0 H Lymphocytes % Monocytes % Nucleated RBC % 0.5 Nucleated RBCs/100 WBC Toxic Granulation 1+ Dohle Bodies Normal RBC Morphology Normal Macrocytosis Patient Temperature ABG pH ABG pH (Temp Correct) ABG pCO2 ABG pCO2 (Temp Corrct ABG pO2 ABG pO2 (Temp Correct ABG HCO3 ABG O2 Saturation ABG Base Excess Respiration Rate O2 Delivery Device Ventilator Type Vent Mode FiO2 Inspiratory Time PEEP Pressure Support Pressure Control EPAP IPAP BiPAP Sodium 128 L Potassium 3.3 L Chloride 86 L Carbon Dioxide 19 L Anion Gap 23 H BUN 56 H Creatinine 3.86 H Est GFR ( Amer) 19.5 Est GFR (Non-Af Amer) 16.1 BUN/Creatinine Ratio 14.5 Glucose 107 H Lactic Acid Calcium 9.7 Ionized Calcium Phosphorus Magnesium Total Bilirubin 0.60 AST 51 H ALT 21 Alkaline Phosphatase 52 Total Creatine Kinase 65 CK-MB (CK-2) 6.2 Troponin I 0.02 C-Reactive Protein 370.21 H B-Natriuretic Peptide Total Protein 7.9 Albumin 3.5 Globulin 4.4 H Albumin/Globulin Ratio 0.8 L Urine Color Urine Appearance Urine pH Ur Specific [place] Urine Protein Urine Ketones Urine Blood Urine Nitrate Urine Bilirubin Urine Urobilinogen Ur Leukocyte Esterase Urine WBC (Auto) Urine RBC (Auto) Ur Squamous Epith Cells Urine Bacteria Hyaline Casts Urine Glucose Influenza A (Rapid) Negative Influenza B (Rapid) Negative 05/06/19 05/06/19 05/06/19 15:22 15:22 17:30 WBC RBC Hgb Hct MCV MCH MCHC RDW Plt Count MPV Neut % (Auto) Lymph % (Auto) Rout[place] % (Auto) Eos % (Auto) Baso % (Auto) Absolute Neuts (auto) Absolute Lymphs (auto) Absolute Monos (auto) Absolute Eos (auto) Absolute Basos (auto) Absolute Nucleated RBC Immature Gran % Neutrophils % Band Neutrophils % Lymphocytes % Monocytes % Nucleated RBC % Nucleated RBCs/100 WBC Toxic Granulation Dohle Bodies Normal RBC Morphology Macrocytosis Patient Temperature ABG pH ABG pH (Temp Correct) ABG pCO2 ABG pCO2 (Temp Corrct ABG pO2 ABG pO2 (Temp Correct ABG HCO3 ABG O2 Saturation ABG Base Excess Respiration Rate O2 Delivery Device Ventilator Type Vent Mode FiO2 Inspiratory Time PEEP Pressure Support Pressure Control EPAP IPAP BiPAP Sodium 128 L Potassium 4.0 Chloride 95 L Carbon Dioxide 19 L Anion Gap 14 H BUN 55 H Creatinine 3.27 H Est GFR ( Amer) 23.6 Est GFR (Non-Af Amer) 19.5 BUN/Creatinine Ratio 16.8 Glucose 92 Lactic Acid 3.8 H* Calcium 8.3 L Ionized Calcium Phosphorus Magnesium Total Bilirubin 0.50 AST 59 H ALT 21 Alkaline Phosphatase 47 Total Creatine Kinase CK-MB (CK-2) Troponin I C-Reactive Protein B-Natriuretic Peptide Total Protein 6.5 Albumin 2.9 L Globulin 3.6 Albumin/Globulin Ratio 0.8 L Urine Color Yellow Urine Appearance Clear Urine pH 5.0 Ur Specific [place] 1.014 Urine Protein 1+(30 mg/dl) A Urine Ketones Negative Urine Blood 1+ A Urine Nitrate Negative Urine Bilirubin Negative Urine Urobilinogen Negative Ur Leukocyte Esterase Negative Urine WBC (Auto) Trace(0-5/hpf) Urine RBC (Auto) Trace(0-2/hpf) Ur Squamous Epith Cells Present A Urine Bacteria Absent Hyaline Casts Present A Urine Glucose Negative Influenza A (Rapid) Influenza B (Rapid) 05/06/19 05/06/19 05/07/19 19:35 23:15 04:05 WBC RBC Hgb Hct MCV MCH MCHC RDW Plt Count MPV Neut % (Auto) Lymph % (Auto) [place] % (Auto) Eos % (Auto) Baso % (Auto) Absolute Neuts (auto) Absolute Lymphs (auto) Absolute Monos (auto) Absolute Eos (auto) Absolute Basos (auto) Absolute Nucleated RBC Immature Gran % Neutrophils % Band Neutrophils % Lymphocytes % Monocytes % Nucleated RBC % Nucleated RBCs/100 WBC Toxic Granulation Dohle Bodies Normal RBC Morphology Macrocytosis Patient Temperature ABG pH ABG pH (Temp Correct) ABG pCO2 ABG pCO2 (Temp Corrct ABG pO2 ABG pO2 (Temp Correct ABG HCO3 ABG O2 Saturation ABG Base Excess Respiration Rate O2 Delivery Device Ventilator Type Vent Mode FiO2 Inspiratory Time PEEP Pressure Support Pressure Control EPAP IPAP BiPAP Sodium Potassium Chloride Carbon Dioxide Anion Gap BUN Creatinine Est GFR ( Amer) Est GFR (Non-Af Amer) BUN/Creatinine Ratio Glucose Lactic Acid 2.9 H* 2.5 H* 2.2 H* Calcium Ionized Calcium Phosphorus Magnesium Total Bilirubin AST ALT Alkaline Phosphatase Total Creatine Kinase CK-MB (CK-2) Troponin I C-Reactive Protein B-Natriuretic Peptide Total Protein Albumin Globulin Albumin/Globulin Ratio Urine Color Urine Appearance Urine pH Ur Specific [place] Urine Protein Urine Ketones Urine Blood Urine Nitrate Urine Bilirubin Urine Urobilinogen Ur Leukocyte Esterase Urine WBC (Auto) Urine RBC (Auto) Ur Squamous Epith Cells Urine Bacteria Hyaline Casts Urine Glucose Influenza A (Rapid) Influenza B (Rapid) 05/07/19 05/07/19 05/07/19 04:05 04:05 04:05 WBC 12.7 H RBC 3.37 L Hgb 11.4 L Hct 34 L MCV 99 H MCH 34 H MCHC 34 RDW 14 Plt Count 128 L MPV 9.7 Neut % (Auto) 97.8 Lymph % (Auto) 1.7 Routt % (Auto) 0.3 Eos % (Auto) 0.1 Baso % (Auto) 0.1 Absolute Neuts (auto) 12.5 H Absolute Lymphs (auto) 0.2 L Absolute Monos (auto) 0.0 Absolute Eos (auto) 0.0 Absolute Basos (auto) 0.0 Absolute Nucleated RBC 0.0 Immature Gran % 12.0 H Neutrophils % 85.0 Band Neutrophils % 12.0 H Lymphocytes % 2.0 Monocytes % 1.0 Nucleated RBC % 0.3 Nucleated RBCs/100 WBC 1.0 H Toxic Granulation 1+ Dohle Bodies Present Normal RBC Morphology Not Reportable Macrocytosis 1+ Patient Temperature ABG pH ABG pH (Temp Correct) ABG pCO2 ABG pCO2 (Temp Corrct ABG pO2 ABG pO2 (Temp Correct ABG HCO3 ABG O2 Saturation ABG Base Excess Respiration Rate O2 Delivery Device Ventilator Type Vent Mode FiO2 Inspiratory Time PEEP Pressure Support Pressure Control EPAP IPAP BiPAP Sodium 129 L Potassium 3.5 Chloride 98 L Carbon Dioxide 20 L Anion Gap 11 BUN 62 H Creatinine 2.45 H Est GFR ( Amer) 32.9 Est GFR (Non-Af Amer) 27.2 BUN/Creatinine Ratio 25.3 H Glucose 95 Lactic Acid Calcium 8.2 L Ionized Calcium 1.06 L Phosphorus 3.7 Magnesium 1.6 L Total Bilirubin 0.60 AST 43 H ALT 18 Alkaline Phosphatase 47 Total Creatine Kinase CK-MB (CK-2) Troponin I C-Reactive Protein B-Natriuretic Peptide Total Protein 6.2 L Albumin 2.7 L Globulin 3.5 Albumin/Globulin Ratio 0.8 L Urine Color Urine Appearance Urine pH Ur Specific [place] Urine Protein Urine Ketones Urine Blood Urine Nitrate Urine Bilirubin Urine Urobilinogen Ur Leukocyte Esterase Urine WBC (Auto) Urine RBC (Auto) Ur Squamous Epith Cells Urine Bacteria Hyaline Casts Urine Glucose Influenza A (Rapid) Influenza B (Rapid) Studies: Patient Name: MAMTA FLEMING Medical Record#: [id number] Ordering Physician: Ceasar Zhou MD Acct.#: [id number] : 1960 Age: 59 Sex: M Location: [facility] Exam Date: 05/07/19 0600 ADM Status: ADM IN Order Information: CHEST AP/PORT Accession Number: [id number] CPT: 99507 INDICATION: Cough COMPARISON: Most recent comparison chest x-rays dated May 05, 2018 TECHNIQUE: Single AP portable view of the chest was obtained. FINDINGS: Image quality is compromised due to the relative inferiority of a portable chest x-ray. The heart and mediastinum exhibit normal size and contour. There is persistent density at the left lung base that is slightly improved relative to the prior chest x-ray. Elsewhere the lungs are adequately clear. Visualized bones are normal for the patient's age. IMPRESSION: Persistent density at the left lung base which is improved relative to the prior chest x-ray. Lobar pneumonia is favored. Nutrition: Regular diet Impression: This is a 59 year old male that presented with a 4 day history of productive cough, and was noted to be profoundly hypoxemic when evaluated in the ED with a PO2 in the range of 40, requiring HFNC. Diagnoses: 1. Acute Hypoxemic Respiratory Failure 2. LLL Pneumonia 3. HTN 4. Chronic Pain 2/2 multiple trauma in 2017 5. Hx of Lung adenocarcinoma with RUL lobectomy in 2018 6. Tachyarrhythmia 7. AC 2/2 dehydration/sepsis 8. Severe Sepsis 2/2 LLL Pna Plan: Neuro - Mentation intact, no active issues - Continue WAM (not scoring) and thiamin/folic acid supplementation CV - Continue tele, on EKG to try and catch rhythm if it happens again - Replete [id number] mag now, level 1.6 this am, 2 K riders, K 3.5 this morning - Lopressor 5mg IVP now, restart metoprolol XL 100mg daily today - Repeat ECHO today Pulm - Initially weaned off vapo, but given arrhythmia and desat will place back on , goal sat >92% - Bronchodilators PRN, pulmonary toilet - Resend sputum culture - Repeat CXR with worsening on left LL, given CA hx with CT chest today and consult Dr. Emma VENTURA - Resend sputum culture - Follow blood cultures - Continue azithro and ceftriaxone for CAP, narrow based on cultures if/when available - Mild elevation in WBC count to 12.7 today, no fever - LA 6.3 on arrival, now 2.4, BP stable, never any indication for pressors, responding appropriately to volume resuscitation GI - Regular diet Renal - Strict I/O, replete to goal K>4, Mg>2, 3gm mag now and 2 K riders - Creat at admission 3.86, slowly trending down to 2.45 with IVF, continue to monitor Heme - Macrocytic anemia noted, likely in the presence of daily ETOH use - continue WAM protocol, add thiamine and folic acid daily Endo - Maintain BG<200, insulin protocol as needed, no hx of DM Musculsk/Skin - OOB to chair - Contininue pain meds PRN Wounds: none DVT prophylaxis: HSQ Lines: None Disposition: Patient requires Critical Care/ICU for vapotherm/respiratory failure and management of severe sepsis Patient clinical status: Guarded Code Status: Full Code Total Critical Care time is 45 minutes
[2019-05-07] MEDS: Thiamine TAB* 100 MG TAB PO SCH (10:10)
[2019-05-07] MEDS: Folic Acid TAB* 1 MG PO SCH (10:10)
[2019-05-07] MEDS: Metoprolol Succinate XL TAB* 100 MG PO SCH (10:10)
[2019-05-07] MEDS: KCL 10 MEQ/50 ML IVPREMIX* 10 MEQ/50 ML BAG IV SCH ×2 (10:10→14:47)
[2019-05-07] MEDS ORDERED: cefTRIAXone(*) 1 GM in NS 0.9% 50 ML* 50 ML IVPB SCH (10:30)
[2019-05-07] MEDS ORDERED: Azithromycin 500 mg/250 ml NS 500 MG/250 ML BAG IVPB SCH (11:00)
--- NOTE | 2019-05-07 16:27 | ECHO ---
*[facility]* [place] [address] Fax #: [phone] Transthoracic Echocardiogram Patient: Juan J Alcaraz : 1960 Study Date: 05/07/2019 Age: 59 Gender: M HR: 72 bpm Height: 71 in /180.3 cm BSA: 1.81 m^2 Weight: 144.7 lb /65.8 kg BMI: 20.2 kg/m^2 *Building Service Worker: * Jyothi Gregory [facility] *Referring Physician: * Tiffany Walls *Reading Physician: * Fermin Mata MD Indications: Abnormal EKG. History: Chronic obstructive pulmonary disease. Risk factors: Former tobacco use. Conclusions Summary: - Left ventricle: Systolic function is normal. The estimated ejection fraction is 55-60%. Wall motion is normal; there are no regional wall motion abnormalities. - Right ventricle: Systolic function is normal. - Mitral valve: There is no significant regurgitation. - Aortic valve: Mild focal thickening involving the noncoronary cusp. There is no evidence of stenosis. - Tricuspid valve: There is mild-moderate regurgitation. - Pulmonary arteries: Systolic pressure is mildly increased. The peak pressure during systole by Doppler is 41.6 mm Hg. - Compared to study of 01/22/18, there is no signficant change. Study data: Transthoracic echocardiogram. Procedure: Transthoracic echocardiography was performed. Image quality was fair. The study was technically limited due to body habitus and COPD. Complete 2D, spectral Doppler, and color flow Doppler. Location: ICU Patient status: Inpatient. Patient room number: 8. Rhythm: Normal sinus rhythm. Findings Left ventricle: The cavity size is normal. Wall thickness is mildly increased. Systolic function is normal. The estimated ejection fraction is 55-60%. Wall motion is normal; there are no regional wall motion abnormalities. There is no consistent Doppler evidence of clinically significant diastolic dysfunction. Right ventricle: The cavity size is normal. Systolic function is normal. Left atrium: The atrium is normal in size. Right atrium: The atrium is normal in size. Mitral valve: The Mitral valve annulus appears calcified. The leaflets are mildly thickened. There is no evidence of stenosis. There is no significant regurgitation. Aortic valve: The valve is trileaflet. Mild focal thickening involving the noncoronary cusp. There is no evidence of stenosis. There is no significant regurgitation. Tricuspid valve: The leaflets are normal thickness. There is no evidence of stenosis. There is mild-moderate regurgitation. Pulmonic valve: Not well visualized. There is no significant regurgitation. Aorta: The aortic root appears normal. The aortic arch appears normal. Pericardium: There is no significant pericardial effusion. Pulmonary arteries: Systolic pressure is mildly increased. Systemic veins: Inferior vena cava: The vessel is normal in size. There is (>= 50%) respiratory change in the IVC dimension. Measurements Left ventricle Value Ref Aortic valve Value Ref ROXANA, LAX 5.3 cm 4.2 - 5.8 Brittany diam, ED 2.3 cm ----- ESD, LAX 3.8 cm 2.5 - 4.0 Brittany diam/bsa, ED 1.3 cm/m^2 ----- FS, LAX 29 % 25 - 43 Peak v, S 1.24 m/sec ----- PW, ED, LAX (H) 1.2 cm 0.6 - 1.0 VTI, S 26.1 cm ----- E', lat brittany, TDI (L) 6.0 cm/sec >=10.0 Mean grad, S 3.6 mm Hg -- --- E/e', lat brittany, 10 Peak grad, S 6.1 mm Hg ----- TDI E', med brittany, TDI (L) 6.0 cm/sec >=7.0 Mitral valve Value Re f E/e', med brittany, 10 Peak E 0.58 m/sec ----- TDI Peak A 0.72 m/sec ----- E', avg, TDI 6.0 cm/sec Decel time 242 ms ----- E/e', avg, TDI 10 <=14 Peak E/A ratio 0.81 -- --- LVOT Value Ref Pulmonic valve Value Ref Peak sarah, S 1.1 m/sec Peak v, S 0.78 m/sec ----- VTI, S 20.0 cm Peak grad, S 2.4 mm Hg ----- Peak grad, S 5 mm Hg Mean grad, S 2 mm Hg Tricuspid valve Value Ref Peak grad, D 41.0 mm Hg ----- Ventricular septum Value Ref TR peak v (H) 3.2 m/sec <=2.8 IVS, ED (H) 1.1 cm 0.6 - 1.0 Aortic root Value Ref Right ventricle Value Ref Root diam 3.2 cm <4.0 ROXANA, LAX 2.4 cm ROXANA major ax, A4C (L) 2.8 cm 5.9 - 8.3 Ascending aorta Value Ref Pressure, S 44 mm Hg AAo AP diam, S 2.9 cm ----- AAo AP diam/bsa, S 1.6 cm/m^2 ----- Left atrium Value Ref AP dim, ES 3.11 cm 3.00 - Decending aorta Value Ref 4.00 Zeke peak sarah 0.9 m/sec ----- ML dim, A4C 2.4 cm SI dim, A4C 4.4 cm Pulmonary artery Value Ref Vol/bsa, ES, 2-p (L) 14 ml/m^2 16 - 34 Pressure, S 41.6 mm Hg ----- Right atrium Value Ref Inferior vena cava Value Ref SI dim, ES 3.9 cm 3.4 - 5.3 Diam 1.7 cm ----- ML dim, ES, A4C 4.1 cm 2.6 - 4.4 Estimated RAP 3 mm Hg Legend: (L) and (H) sharmin values outside specified reference range. Prepared and electronically signed by Fermin Mata MD 05/07/2019 16:26
[2019-05-07] MEDS ORDERED: Furosemide IV* 10 MG/ML 2 ML VIAL (20 MG) IV ONE (20:50)
[2019-05-07] MEDS ORDERED: Furosemide IV* 10 MG/ML 2 ML VIAL (20 MG) ONE (20:54)
[2019-05-07 21:44] LABS: Calcium 9.1 mg/dL (8.6-10.3); Potassium 3.1 mmol/L (3.5-5.0)
[2019-05-07 21:49] LABS: BUN/Creatinine Ratio 43.8 (8-20); EGFR African American 64.4 (>60); EGFR Non-African American 53.2 (>60)
[2019-05-07] MEDS ORDERED: Potassium Chloride* LIQUID 20 MEQ/15 ML UDC PO ONE (22:30)
[2019-05-07 22:48] LABS: Magnesium 2.1 mg/dL (1.9-2.7)
[2019-05-07 23:03] LABS: Urine Appearance Clear; Urine Bilirubin Negative (Negative); Urine Blood 2+ (Negative); Urine Color Straw; Urine Glucose Negative (Negative); Urine Ketones Negative (Negative); Urine Nitrite Negative (Negative); Urine Protein Negative (Negative); Urine Specific Gravity 1.006 (1.010-1.030); Urine Urobilinogen Negative (Negative)
[2019-05-07 23:06] LABS: Urine Bacteria Absent (Absent); Urine Red Blood Cell 3+(>10/hpf) (Absent); Urine White Blood Cell Trace(0-5/hpf) (Absent)
[2019-05-07] MEDS ORDERED: KCL 20 MEQ/100 ML IVPREMIX* 20 MEQ/100 ML BAG IV ONE (23:30)
[2019-05-08] MEDS ORDERED: Dexmedetomidine* 1,000 MCG in NS 0.9% 250 ML* 240 ML IV SCH ×2
--- NOTE | 2019-05-08 00:11 | PN ---
Hospitalist Progress Note Date of Service: 05/08/19 I rounded on mr. Alcaraz earlier this evening. At that time, his son was at the bedside and reported that Juan J drinks etoh "all day every day" and buys lots of pills on the streets ("as much of anything he can get his hands on"). His son suspected he was going in to withdrawal. He also is diffusely rhonchorous in b/l lungs. I ordered 0.5mg of ativan and 20mg IV lasix which helped his anxiety very little. Two hours later, Meagan expressed concerned about increased work of breathing and increasing anxiety. I came back to see him; his ABG shows hypoxia. We will restart vapotherm, start a precedex drip, he is currently scoring on WAM protocol so just received more PO ativan. Will follow.
[2019-05-08] MEDS ORDERED: Ziprasidone IM INJ* 20 MG/ML VIAL IM PRN (00:41)
--- NOTE | 2019-05-08 02:16 | PN ---
Hospitalist Progress Note Date of Service: 05/08/19 Melena reported; FOBT + Heparin DC'ed Check repeat CBC
[2019-05-08] MEDS ORDERED: Norepinephrine 16MCG/ML IVPRE* 4,000 MCG/250 ML BAG IV ONE (03:19)
[2019-05-08] MEDS: Norepinephrine 16MCG/ML IVPRE* 4,000 MCG/250 ML BAG IV SCH (03:20)
[2019-05-08 03:31] LABS: Hematocrit 26 % (42-52); Hemoglobin 9.1 g/dL (14.0-18.0); Mean Corpuscular HGB Conc 35 g/dL (31-36); Mean Corpuscular Hemoglobin 35 pg (27-31); Mean Corpuscular Volume 98 fL (80-94); Platelet Count 98 10^3/uL (150-450); Red Blood Count 2.64 10^6 /uL (4.18-5.48); Red Cell Distribution Width 14 % (10-15); White Blood Count 15.1 10^3/uL (3.5-10.8)
[2019-05-08 03:46] LABS: BUN/Creatinine Ratio 48.3 (8-20); EGFR African American 59.3 (>60); Potassium 3.5 mmol/L (3.5-5.0)
[2019-05-08] MEDS ORDERED: Vancomycin(*) 1,000 MG in NS 0.9% 250 ML* 250 ML IV ONE (04:30)
[2019-05-08] MEDS ORDERED: ZOSYN 3.375 GM x ONE DOSE over 30 miuntes IVPB ×2 (04:30)
[2019-05-08] MEDS: Pantoprazole* 80 mg IN NS 80 MG/250 ML BAG IV SCH ×2 (04:31→13:50)
[2019-05-08 05:31] LABS: ABS Basophils 0.1 10^3/ul (0-0.2); ABS Lymphocytes 0.2 10^3/ul (1.0-4.8); ABS Monocytes 0.4 10^3/ul (0-0.8); ABS Neutrophils 14.5 10^3/ul (1.5-7.7); Nucleated Red Blood Cells % 0.2
[2019-05-08] MEDS: Octreotide Acetate* 500 MCG in NS 0.9% 100 ML* 100 ML IV SCH ×2 (05:32→13:50)
[2019-05-08] MEDS: NS 0.9% 1000 ML** 1,000 ML IV SCH (05:34)
[2019-05-08] MEDS ORDERED: Vancomycin per Pharmacy* NOTE FOLLOW UP SCH (06:00)
[2019-05-08] MEDS ORDERED: Metoprolol Tartrate IV* 1 MG/ML 5 ML VIAL IV ONE (09:30)
[2019-05-08] MEDS ORDERED: Metoprolol Tartrate IV* 1 MG/ML 5 ML VIAL ONE (09:36)
[2019-05-08] MEDS: Piperacillin/Tazobac ADVAN(*) 3.375 GM in NS 0.9% 100 ML* 100 ML IVPB SCH ×2 (09:45→17:32)
[2019-05-08] MEDS ORDERED: KCL 10 MEQ/50 ML IVPREMIX* 10 MEQ/50 ML BAG ONE (10:01)
[2019-05-08] MEDS: KCL premix 10MEQ/50 ML x 2 BAGS IV SCH ×2 (10:04→12:41)
[2019-05-08] MEDS: Thiamine TAB* 100 MG TAB PO SCH (11:39)
[2019-05-08] MEDS: Folic Acid TAB* 1 MG PO SCH (11:39)
[2019-05-08] MEDS: Metoprolol Succinate XL TAB* 100 MG PO SCH (11:39)
--- NOTE | 2019-05-08 12:44 | PN ---
Date of Service: 05/08/19 Critical Care Services: Dramatic agitated delirium overnight. Vital Signs: Temp Pulse Resp BP SpO2 FiO2 37.4 C 85 24 115/64 98 25 05/08/19 12:00 05/08/19 08:00 05/08/19 08:00 05/08/19 08:00 05/08/19 08:00 05/07 08:21 Physical Exam: Gen: sedated, protecting his airway HEENT: NCAT, PERRL and small Lungs: basilar crackles Cardiac: S1S2 regular Abdomen: soft, NT, ND, +BS Extremities: trace edema Neuro: sedated, moves all 4 ext Fluid Balance (Past 24 Hours): I= O= Net Intake & Output 05/06/19 05/07/19 05/08/19 05/09/19 06:59 06:59 06:59 06:59 Intake Total 2393 2680.0 Output Total 850 3045 210 Balance 1543 -365.0 -210 Weight 65.8 kg 64.3 kg Intake: IV Fluids 2393 1267 ABX - CEFTRIAXONE 73 KCl 71 LR 1343 956 NS (0.9%) 1000 167 IVPB 556 ABX 265 KCl 170 MAG 121 Medicated IV 127.0 Levophed 28.6 Octreotide 1.6 Precedex 67.5 Protonix 29.3 Oral 730 Output: Urine 700 1500 Hilton 150 1545 210 Other: Estimated Void Large # Voids 1 Labs: Laboratory Results - last 24 hr 05/07/19 05/07/19 05/07/19 19:15 20:37 22:30 WBC RBC Hgb Hct MCV MCH MCHC RDW Plt Count MPV Neut % (Auto) Lymph % (Auto) [place] % (Auto) Eos % (Auto) Baso % (Auto) Absolute Neuts (auto) Absolute Lymphs (auto) Absolute Monos (auto) Absolute Eos (auto) Absolute Basos (auto) Absolute Nucleated RBC Nucleated RBC % Patient Temperature ABG pH ABG pH (Temp Correct) ABG pCO2 ABG pCO2 (Temp Corrct ABG pO2 ABG pO2 (Temp Correct ABG HCO3 ABG O2 Saturation ABG Base Excess Respiration Rate O2 Delivery Device Ventilator Type Vent Mode FiO2 Inspiratory Time PEEP Pressure Support Pressure Control EPAP IPAP BiPAP Sodium 131 L Potassium 3.1 L Chloride 98 L Carbon Dioxide 24 Anion Gap 9 BUN 60 H Creatinine 1.37 H Est GFR ( Amer) 64.4 Est GFR (Non-Af Amer) 53.2 BUN/Creatinine Ratio 43.8 H Glucose 110 H Lactic Acid 2.4 H* Calcium 9.1 Magnesium 2.1 Urine Color Straw Urine Appearance Clear Urine pH 6.0 Ur Specific [place] 1.006 L Urine Protein Negative Urine Ketones Negative Urine Blood 2+ A Urine Nitrate Negative Urine Bilirubin Negative Urine Urobilinogen Negative Ur Leukocyte Esterase Negative Urine WBC (Auto) Trace(0-5/hpf) Urine RBC (Auto) 3+(>10/hpf) A Urine Bacteria Absent Urine Glucose Negative 05/07/19 05/08/19 05/08/19 23:20 03:21 03:23 WBC RBC Hgb Hct MCV MCH MCHC RDW Plt Count MPV Neut % (Auto) Lymph % (Auto) [place] % (Auto) Eos % (Auto) Baso % (Auto) Absolute Neuts (auto) Absolute Lymphs (auto) Absolute Monos (auto) Absolute Eos (auto) Absolute Basos (auto) Absolute Nucleated RBC Nucleated RBC % Patient Temperature Not Reportable ABG pH 7.50 H ABG pH (Temp Correct) Not Reportable ABG pCO2 33 L ABG pCO2 (Temp Corrct Not Reportable ABG pO2 67 L ABG pO2 (Temp Correct Not Reportable ABG HCO3 27.1 ABG O2 Saturation 96.6 ABG Base Excess 2.9 H Respiration Rate Not Reportable O2 Delivery Device nasal cannula Ventilator Type Not Reportable Vent Mode Not Reportable FiO2 32 Inspiratory Time Not Reportable PEEP Not Reportable Pressure Support Not Reportable Pressure Control Not Reportable EPAP Not Reportable IPAP Not Reportable BiPAP Not Reportable Sodium 131 L Potassium 3.5 Chloride 97 L Carbon Dioxide 26 Anion Gap 8 BUN 71 H Creatinine 1.47 H Est GFR ( Amer) 59.3 Est GFR (Non-Af Amer) 49.0 BUN/Creatinine Ratio 48.3 H Glucose 112 H Lactic Acid 3.6 H* Calcium 9.0 Magnesium 2.0 Urine Color Urine Appearance Urine pH Ur Specific [place] Urine Protein Urine Ketones Urine Blood Urine Nitrate Urine Bilirubin Urine Urobilinogen Ur Leukocyte Esterase Urine WBC (Auto) Urine RBC (Auto) Urine Bacteria Urine Glucose 05/08/19 05/08/19 03:23 08:00 WBC 15.1 H RBC 2.64 L Hgb 9.1 L Hct 26 L MCV 98 H MCH 35 H MCHC 35 RDW 14 Plt Count 98 L MPV 10.0 Neut % (Auto) 95.8 Lymph % (Auto) 1.0 [place] % (Auto) 2.6 Eos % (Auto) 0.0 Baso % (Auto) 0.6 Absolute Neuts (auto) 14.5 H Absolute Lymphs (auto) 0.2 L Absolute Monos (auto) 0.4 Absolute Eos (auto) 0.0 Absolute Basos (auto) 0.1 Absolute Nucleated RBC 0.0 Nucleated RBC % 0.2 Patient Temperature ABG pH ABG pH (Temp Correct) ABG pCO2 ABG pCO2 (Temp Corrct ABG pO2 ABG pO2 (Temp Correct ABG HCO3 ABG O2 Saturation ABG Base Excess Respiration Rate O2 Delivery Device Ventilator Type Vent Mode FiO2 Inspiratory Time PEEP Pressure Support Pressure Control EPAP IPAP BiPAP Sodium Potassium Chloride Carbon Dioxide Anion Gap BUN Creatinine Est GFR ( Amer) Est GFR (Non-Af Amer) BUN/Creatinine Ratio Glucose Lactic Acid 1.6 Calcium Magnesium Urine Color Urine Appearance Urine pH Ur Specific [place] Urine Protein Urine Ketones Urine Blood Urine Nitrate Urine Bilirubin Urine Urobilinogen Ur Leukocyte Esterase Urine WBC (Auto) Urine RBC (Auto) Urine Bacteria Urine Glucose Studies: LLL pneumonia Nutrition: NPO awaiting improvement in mentation Impression: Acute agitated delirium secondary to polysubstance withdrawal in setting of improving severe sepsis from pneumonia Plan: Acute agitated delirium - secondary to acute polysubstance withdrawal and most importantly alcohol. Additional pertinent history provided by patient's sons at bedside last PM. Pt apparently abusing multiple street drugs in addition to his prescribed opioids and is also a chronic heavy drinker in addition to the chronic marijuana use he did disclose to me on admission. he is doing well with benzos, precedex and geodon. The latter getting the final bit of needed control. I have discussed the situation with his friend who has been with him since I met him in the ED as well as with his son. All voiced understanding. Son very well educated on dad's dependence, withdrawal and the risks that it entails including . Severe sepsis secondary to pneumonia - doing well from that standpoint, continue Abx and fluids and time. Hopefully the added layer of withdrawal will not ultimately land him on a ventilator. Tachycardia - ECHO surprisingly normal for his conduction system abnormalities ( RBBB, LAHB). Has had some tachycardia off his BB and we have transitioned to lopressor IV q6H to keep him under control which is working well.
[2019-05-08] MEDS: Metoprolol Tartrate IV* 1 MG/ML 5 ML VIAL IV SCH ×2 (13:56→19:38)
[2019-05-08] MEDS ORDERED: Lorazepam PYXIS KEY ONE ×3 (14:22→21:49)
[2019-05-08] MEDS ORDERED: LORazepam INJ* 2 MG/ML 1 ML VIAL ONE (14:22)
[2019-05-08] MEDS ORDERED: Thiamine INJ* 100 MG, Folic Acid IV* 1 MG, Multiple Vitamin IV ADULT* 10 ML in NS 0.9% ... IV ONE (16:30)
[2019-05-08] MEDS: LORazepam INJ* 2 MG/ML 1 ML VIAL IV PUSH SCH (16:46)
[2019-05-08] MEDS: Vancomycin(*) 750 MG in NS 0.9% 250 ML* 250 ML IVPB SCH (18:21)
--- NOTE | 2019-05-08 19:09 | CONS ---
GASTROENTEROLOGY CONSULT: DATE: CONSULTING PHYSICIANS: Dr. Sukhi Ch and Dr. Ceasar Zhou, ICU. REASON FOR CONSULTATION: Loose dark stool and hemoglobin falling from admission value of 14.4 over 24 hours later to 11.4 and 48 hours later to 9.1. HISTORY: This 59-year-old man, status post right upper lobe resection for lung cancer in January [address] Busby, was admitted through the ER with pneumonia , diagnosed about 3 days after the onset of respiratory symptoms. He has been significantly ill with a low saturation. He has begun withdrawing from alcohol. His fall in hemoglobin was initially attributed to rehydration, but then he had a dark stool last night around 10:30 p.m. and it was heme- positive. He has been started on a Protonix and octreotide drip in addition to the Zosyn and vancomycin. He has no history of GI bleeding in the past. The history is given by a friend Bella Desai (lives ten miles away and gives the history) who is not versed in all of the details. The record does not show any record of endoscopy or colonoscopy (confirmed later) . His NSAID use at home is not known. PAST MEDICAL HISTORY: 1. Ongoing tobacco abuse. 2. Alcoholism - CT scans show cirrhosis on contours. 3. Alcoholic liver disease with cirrhosis - INR a year and a half ago 1.1, previously having been 0.99. Bilirubin 0.5 and albumin 2.7, having been 3.9 in November 2010 4. Hepatitis C - positive Ab 2012 - he did not pursue any gastroenterology consult 5. Right upper lobe lung cancer - followed by Dr. Carter. 6. 2018 History of multiple trauma with splenic laceration and pneumothorax - treated at [facility]. MEDICATIONS: As an outpatient: 1. Hydrochlorothiazide 12.5. 2. Metoprolol 100. 3. Gabapentin 300 t.i.d. 4. Hydrocodone. No NSAIDs are listed and the history is unclear. ALLERGIES: LISINOPRIL - swelling of the tongue and face - admitted in 2015. 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 He has 4 sons. 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 His friend does not believe he has had any legal complications from alcohol use. April 2017 ER visit described Etoh as 6 beers / d. REVIEW OF SYSTEMS: No history of overt upper GI bleeding, treatment for ascites , rectal bleeding. He is still an active drinker. There is no history of hemoptysis or TB. No history of seizure, CVA, VT, palpitations, syncope. His baseline hemoglobin is difficult to trial court judge as the values essentially wander all over the place from an initial 15 in 2012 down into the 13s and then in the 9s in January 2018 when he was in with multiple trauma. The labs do not indicate any liver disease evaluation beyond the presumption that he has alcoholic liver disease. There is an alpha-fetoprotein ordered by Dr Carter in February 2017 of 3.9. EXAM: He is in the ICU bed 8, on a Precedex drip. Temperature was 99.6, pulse 93, blood pressure 161/86. HEENT exam shows no icterus. He is restless on the verge of being combative. HEENT exam is limited, but there is no obvious trauma. Breath sounds are diminished and difficult to hear given his movement. Heart sounds are regular. The abdomen is rounded, firm, appears to have fluid. Rectal is not feasible. Extremities show no edema. Neurologic shows him to be confused and nonverbal. His Hilton catheter is intact. IMPRESSION: This 59-year-old man a year and a half out from lobectomy for lung cancer and is still smoking. He is an active alcoholic and has cirrhosis, though fortunately it is compensated and he has no obvious sign of portal hypertension. It is difficult to know what his best functioning is or his average diet. At the moment, he has a severe pneumonia and is withdrawing from alcohol. The cirrhosis is compensated, but his nutritional supply is undoubtedly compromised with there being a discrepancy between his albumin and INR on the one hand and the normal bilirubin. Gastrointestinal bleeding currently is the fourth problem in priority Hopefully, the octreotide and PPI drips will stabilize this. Hopefully, when he recovers from all of this, he will be able to undergo conventional evaluation for anemia, heme positive stool, varices and appropriate colon screening. It will be necessary to know what his eventual baseline iron stores and hemoglobin is when acute phase reactants have settled. For the moment, his volume status is being driven by supporting his circulation. It is good that his creatinine is dropping rapidly with rehydration. A balance will eventually have to be struck with a tendency to ascites formation. [id number]/[facility] #: [id number] MARTHA
[2019-05-08 20:44] LABS: BUN/Creatinine Ratio 54.2 (8-20); Calcium 8.5 mg/dL (8.6-10.3); EGFR African American 76.5 (>60); EGFR Non-African American 63.2 (>60); Magnesium 1.6 mg/dL (1.9-2.7); Potassium 3.4 mmol/L (3.5-5.0)
[2019-05-08] MEDS ORDERED: Magnesium Sulfate 2 GM IV* 2 GM/50 ML BAG IVPB ONE (21:00)
[2019-05-08] MEDS ORDERED: KCL 10 MEQ/50 ML IVPREMIX* 10 MEQ/50 ML BAG IV ONE (21:02)
[2019-05-08] MEDS ORDERED: Lorazepam PYXIS KEY PRN (22:32)
[2019-05-09] MEDS: Pantoprazole* 80 mg IN NS 80 MG/250 ML BAG IV SCH ×3 (00:20→23:42)
[2019-05-09] MEDS: Octreotide Acetate* 500 MCG in NS 0.9% 100 ML* 100 ML IV SCH ×3 (00:20→22:30)
[2019-05-09] MEDS: Metoprolol Tartrate IV* 1 MG/ML 5 ML VIAL IV SCH ×3 (01:51→14:13)
[2019-05-09] MEDS: Piperacillin/Tazobac ADVAN(*) 3.375 GM in NS 0.9% 100 ML* 100 ML IVPB SCH ×3 (01:52→17:36)
[2019-05-09] MEDS: LORazepam INJ* 2 MG/ML 1 ML VIAL IV PUSH SCH ×2 (02:35)
[2019-05-09 05:34] LABS: Hematocrit 31 % (42-52); Hemoglobin 10.3 g/dL (14.0-18.0); Mean Corpuscular HGB Conc 34 g/dL (31-36); Mean Corpuscular Hemoglobin 33 pg (27-31); Mean Corpuscular Volume 100 fL (80-94); Mean Platelet Volume 9.9 fL (7.4-10.4); Platelet Count 139 10^3/uL (150-450); Red Blood Count 3.09 10^6 /uL (4.18-5.48); Red Cell Distribution Width 14 % (10-15); White Blood Count 33.5 10^3/uL (3.5-10.8)
[2019-05-09 05:49] LABS: BUN/Creatinine Ratio 50.9 (8-20); Calcium 8.5 mg/dL (8.6-10.3); EGFR African American 86.5 (>60); EGFR Non-African American 71.5 (>60); Potassium 3.1 mmol/L (3.5-5.0)
[2019-05-09] MEDS ORDERED: Morphine INJ* 2 MG/ML 1 ML SYRINGE (TWO MG - NEW SYRINGE VERSION) IV ONE (06:00)
[2019-05-09] MEDS: Vancomycin(*) 750 MG in NS 0.9% 250 ML* 250 ML IVPB SCH ×2 (06:03→18:13)
[2019-05-09 06:26] LABS: ABS Lymphocytes 0.5 10^3/ul (1.0-4.8); ABS Monocytes 0.7 10^3/ul (0-0.8); ABS Neutrophils 32.2 10^3/ul (1.5-7.7); Lymphocyte % 1.5 %
[2019-05-09 06:28] LABS: Magnesium 1.8 mg/dL (1.9-2.7)
[2019-05-09] MEDS ORDERED: Succinylcholine* 20 MG/ML 10 ML VIAL ONE (06:54)
[2019-05-09 06:58] LABS: Urine Appearance Clear; Urine Bilirubin Negative (Negative); Urine Blood 3+ (Negative); Urine Color Straw; Urine Glucose Negative (Negative); Urine Ketones Negative (Negative); Urine Nitrite Negative (Negative); Urine Protein Negative (Negative); Urine Specific Gravity 1.004 (1.010-1.030); Urine Urobilinogen Negative (Negative)
[2019-05-09] MEDS ORDERED: Propofol* 100 ML ONE (06:58)
[2019-05-09] MEDS ORDERED: Etomidate* 2 MG/ML 20 ML VIAL (40 MG) ONE (07:00)
[2019-05-09 07:16] LABS: Urine Bacteria 1+ (Absent); Urine Red Blood Cell 3+(>10/hpf) (Absent); Urine Squamous Epithelial Cell Present (Absent); Urine White Blood Cell 1+(6-10/hpf) (Absent)
--- NOTE | 2019-05-09 07:23 | ED ---
ED Procedures - Intubation Time of Intubation: 06:55 - 20 mg etomidate administered Intubation Method: orotracheal Tube Size (cm): 8.0 Breath Sounds after Intubation: equal Intubation Complications: no complications - Direct visualization. rising O2 sat Post Intubation Xray: Yes
[2019-05-09] MEDS ORDERED: Magnesium Sulfate 2 GM IV* 2 GM/50 ML BAG IVPB ONE (07:26)
[2019-05-09] MEDS ORDERED: Propofol* 100 ML IV SCH (08:00)
[2019-05-09] MEDS: KCL 10 MEQ/50 ML IVPREMIX* 10 MEQ/50 ML BAG IV SCH ×3 (08:08→11:48)
[2019-05-09 08:35] LABS: Albumin 2.2 g/dL (3.2-5.2); Albumin/Globulin Ratio 0.7 (1-3); Globulin 3.1 g/dL (2-4); Indirect Bilirubin 0.3 mg/dL (0.3-1.0); Total Bilirubin 0.6 mg/dL (0.2-1.0); Total Protein 5.3 g/dL (6.4-8.9)
[2019-05-09] MEDS: NS 0.9% 1000 ML** 1,000 ML IV SCH ×2 (08:46→18:47)
[2019-05-09] MEDS: Norepinephrine 16MCG/ML IVPRE* 4,000 MCG/250 ML BAG IV SCH ×2 (08:47→17:48)
[2019-05-09] MEDS: Propofol* 100 ML IV SCH ×2 (08:48→17:48)
[2019-05-09] MEDS ORDERED: Multivitamins/Minerals TAB PO SCH (09:00)
[2019-05-09] MEDS: Metoprolol Succinate XL TAB* 100 MG PO SCH (10:37)
[2019-05-09] MEDS: Chlorhexidine MOUTHWASH 0.12%* 15 ML UDC TOPICAL SCH ×4 (10:37→22:20)
--- NOTE | 2019-05-09 12:27 | PN ---
Date of Service: 05/09/19 Critical Care Services: Intubated early this AM for progressive hypoxia and work of breathing. I was contacted by KYLE Corral regarding indications for intubation which we both agreed were present and the patient was kindly intubated by the ED Attending. He is now stable on the ventilator oxygenating well with stable CXR. Vital Signs: Temp Pulse Resp BP SpO2 FiO2 37.3 C 85 18 87/58 100 100 05/09/19 12:15 05/09/19 12:15 05/09/19 09:00 05/09/19 12:15 05/09/19 12:15 05/08 08:00 Physical Exam: Gen: sedated HEENT: intubated, NCAT, PERRL Lungs: rhonchi left, clear right Cardiac: S1S2 regular Abdomen: soft, mildly distended, mildly tender, +BS Extremities: trace edema Neuro: sedated, moves ext spont and occasionally going for the ETT Fluid Balance (Past 24 Hours): I= O= Net Intake & Output 05/07/19 05/08/19 05/09/19 05/10/19 06:59 06:59 06:59 06:59 Intake Total 2393 2680.0 4957 Output Total 850 3045 4395 310 Balance 1543 -365.0 562 -310 Weight 65.8 kg 64.3 kg 64.6 kg Intake: IV Fluids 2393 1267 3608 ABX - CEFTRIAXONE 73 Banana Bag 552 KCl 71 111 LR 6324 563 2242 MAG 30 NS (0.9%) 3566 994 8708 Vanco 121 IVPB 556 589 KCl 170 62 MAG 121 31 Vanco 265 298 Zosyn 198 Medicated IV 127.0 760 Levophed 28.6 Octreotide 1.6 270 Precedex 67.5 Protonix 29.3 490 Oral 730 Output: Urine 700 1500 Hilton 150 1545 4395 310 Other: Estimated Void Large # Voids 1 Labs: Laboratory Results - last 24 hr 05/08/19 05/09/19 05/09/19 20:13 05:19 05:19 WBC 33.5 H RBC 3.09 L Hgb 10.3 L Hct 31 L MCV 100 H MCH 33 H MCHC 34 RDW 14 Plt Count 139 L MPV 9.9 Neut % (Auto) 96.3 Lymph % (Auto) 1.5 [place] % (Auto) 2.1 Eos % (Auto) 0.0 Baso % (Auto) 0.1 Absolute Neuts (auto) 32.2 H Absolute Lymphs (auto) 0.5 L Absolute Monos (auto) 0.7 Absolute Eos (auto) 0.0 Absolute Basos (auto) 0.0 Absolute Nucleated RBC 0.0 Nucleated RBC % 0.0 Patient Temperature ABG pH ABG pH (Temp Correct) ABG pCO2 ABG pCO2 (Temp Corrct ABG pO2 ABG pO2 (Temp Correct ABG HCO3 ABG O2 Saturation ABG Base Excess Respiration Rate Ventilator Type Vent Mode FiO2 Inspiratory Time PEEP Pressure Support Pressure Control EPAP IPAP BiPAP Sodium 139 D 143 Potassium 3.4 L 3.1 L Chloride 105 109 Carbon Dioxide 29 27 Anion Gap 5 7 BUN 64 H 54 H Creatinine 1.18 H 1.06 Est GFR ( Amer) 76.5 86.5 Est GFR (Non-Af Amer) 63.2 71.5 BUN/Creatinine Ratio 54.2 H 50.9 H Glucose 99 102 H Calcium 8.5 L 8.5 L Magnesium 1.6 L 1.8 L Total Bilirubin Direct Bilirubin Indirect Bilirubin AST ALT Alkaline Phosphatase Total Protein Albumin Globulin Albumin/Globulin Ratio Urine Color Urine Appearance Urine pH Ur Specific [place] Urine Protein Urine Ketones Urine Blood Urine Nitrate Urine Bilirubin Urine Urobilinogen Ur Leukocyte Esterase Urine WBC (Auto) Urine RBC (Auto) Ur Squamous Epith Cells Urine Bacteria Urine Glucose 05/09/19 05/09/19 05/09/19 06:15 06:16 08:01 WBC RBC Hgb Hct MCV MCH MCHC RDW Plt Count MPV Neut % (Auto) Lymph % (Auto) [place] % (Auto) Eos % (Auto) Baso % (Auto) Absolute Neuts (auto) Absolute Lymphs (auto) Absolute Monos (auto) Absolute Eos (auto) Absolute Basos (auto) Absolute Nucleated RBC Nucleated RBC % Patient Temperature Not Reportable ABG pH 7.26 L ABG pH (Temp Correct) Not Reportable ABG pCO2 55 H ABG pCO2 (Temp Corrct Not Reportable ABG pO2 66 L ABG pO2 (Temp Correct Not Reportable ABG HCO3 22.3 ABG O2 Saturation 92.8 L ABG Base Excess -3.2 L Respiration Rate Not Reportable Ventilator Type Not Reportable Vent Mode Not Reportable FiO2 3 Inspiratory Time Not Reportable PEEP Not Reportable Pressure Support Not Reportable Pressure Control Not Reportable EPAP Not Reportable IPAP Not Reportable BiPAP Not Reportable Sodium Potassium Chloride Carbon Dioxide Anion Gap BUN Creatinine Est GFR ( Amer) Est GFR (Non-Af Amer) BUN/Creatinine Ratio Glucose Calcium Magnesium Total Bilirubin 0.60 Direct Bilirubin 0.30 H Indirect Bilirubin 0.3 AST 60 H ALT 18 Alkaline Phosphatase 56 Total Protein 5.3 L Albumin 2.2 L Globulin 3.1 Albumin/Globulin Ratio 0.7 L Urine Color Straw Urine Appearance Clear Urine pH 5.0 Ur Specific [place] 1.004 L Urine Protein Negative Urine Ketones Negative Urine Blood 3+ A Urine Nitrate Negative Urine Bilirubin Negative Urine Urobilinogen Negative Ur Leukocyte Esterase Negative Urine WBC (Auto) 1+(6-10/hpf) A Urine RBC (Auto) 3+(>10/hpf) A Ur Squamous Epith Cells Present A Urine Bacteria 1+ A Urine Glucose Negative Studies: CXR with ETT in good position and stable LLL pneumonia Nutrition: Will start TF Impression: Acute agitated delirium secondary to polysubstance withdrawal in setting of improving severe sepsis from pneumonia now deteriorated to acute hypoxic respiratory failure in the setting of his multiple concomitant processes. Plan: Acute agitated delirium - secondary to acute polysubstance withdrawal and most importantly alcohol. Additional pertinent history provided by patient's sons at bedside on the evening of the . Pt apparently abusing multiple street drugs in addition to his prescribed opioids and is also a chronic heavy drinker in addition to the chronic marijuana use he did disclose to me on admission. He was doing well with benzos, precedex and geodon but this AM his ability to protect his airway and clear his secretions became more of a problem and the accumulated secretions resulted in progressive oxygen requirement and respiratory failure requiring intubation. He is now well-perfused on the ventilator with a small levophed requirement, making urine. Severe sepsis secondary to pneumonia - Had been doing well from that standpoint but after intubation today he was suctioned for thick tenacious secretions which we have sent for culture. Abx were already broadened to include MRSA and the sputum is currently showing GPCs with speciation pending. Unfortunately the added layer of withdrawal did, in fact, ultimately land him on a ventilator. His severe leukocytosis may or may not be goodwill representative of another process but he does have some abdominal distension and vague diffuse tenderness. LFTs OK. Will do CT Abd/Pelvis and will check lipase. Bowel sounds are intact which argues against anything catastrophic and CXR without anything sinister below the diaphragm. Tachycardia - ECHO surprisingly normal for his conduction system abnormalities ( RBBB, LAHB). Has had some tachycardia off his BB and we have transitioned to lopressor IV q6H to keep him under control which is working well overall. Situation discussed in detail with son and friend at bedside including plans to move forward with CT today and general course of a patient in this situation which included discussion of difficulty weaning due to ongoing agitated delirium at that time often present and that some patients even require tracheostomy to liberate. We discussed loosely that 7-14 days of mechanical ventilation could be a pretty normal range in a patient like Juan J. They voiced understanding and appreciation for the care. Critical Care Time: 45 minutes
[2019-05-09] MEDS: Thiamine TAB* 100 MG TAB PO SCH ×2 (12:36→12:56)
[2019-05-09] MEDS: Folic Acid TAB* 1 MG PO SCH (12:36)
[2019-05-09] MEDS: Multivitamins ADULT w/MIN LIQ* 15 ML UDC PO SCH (12:36)
[2019-05-09] MEDS ORDERED: Lorazepam PYXIS KEY PRN (14:07)
[2019-05-09] MEDS: LORazepam INJ* 2 MG/ML 1 ML VIAL IV PUSH PRN ×2 (14:50→15:00)
[2019-05-09] MEDS ORDERED: Iohexol 300* (CONTRAST) 10 ML SDV IV ONE (15:31)
[2019-05-10] MEDS: Piperacillin/Tazobac ADVAN(*) 3.375 GM in NS 0.9% 100 ML* 100 ML IVPB SCH ×3 (00:54→17:19)
[2019-05-10] MEDS: Chlorhexidine MOUTHWASH 0.12%* 15 ML UDC TOPICAL SCH ×6 (01:00→22:28)
[2019-05-10] MEDS: Propofol* 100 ML IV SCH ×3 (01:15→23:54)
[2019-05-10 04:40] LABS: Hematocrit 31 % (42-52); Hemoglobin 10.3 g/dL (14.0-18.0); Mean Corpuscular HGB Conc 33 g/dL (31-36); Mean Corpuscular Hemoglobin 33 pg (27-31); Mean Corpuscular Volume 100 fL (80-94); Mean Platelet Volume 9.5 fL (7.4-10.4); Platelet Count 129 10^3/uL (150-450); Red Cell Distribution Width 14 % (10-15); White Blood Count 20.8 10^3/uL (3.5-10.8)
[2019-05-10 05:03] LABS: ABS Lymphocytes 0.7 10^3/ul (1.0-4.8); ABS Monocytes 1.4 10^3/ul (0-0.8); ABS Neutrophils 18.7 10^3/ul (1.5-7.7); Lymphocyte % 3.1 %
[2019-05-10] MEDS: Acetaminophen ADULT LIQ* 650 MG/20.3 ML UDC PO PRN ×2 (05:07→14:22)
[2019-05-10 05:08] LABS: Albumin 2.4 g/dL (3.2-5.2); Albumin/Globulin Ratio 0.6 (1-3); BUN/Creatinine Ratio 41.3 (8-20); Calcium 8.6 mg/dL (8.6-10.3); EGFR African American 83.8 (>60); EGFR Non-African American 69.2 (>60); Globulin 3.9 g/dL (2-4); Magnesium 1.6 mg/dL (1.9-2.7); Phosphorus 1.9 mg/dL (2.5-5.0); Potassium 3.1 mmol/L (3.5-5.0); Total Bilirubin 0.8 mg/dL (0.2-1.0); Total Protein 6.3 g/dL (6.4-8.9)
[2019-05-10] MEDS ORDERED: Vancomycin Trough Check NOTE FOLLOW UP ONE (05:30)
[2019-05-10] MEDS ORDERED: Calcium Acetate CAP* 667 MG PO ONE (06:00)
[2019-05-10] MEDS: Potassium Chloride* LIQUID 20 MEQ/15 ML UDC PO SCH ×3 (06:04→14:24)
[2019-05-10] MEDS ORDERED: Magnesium Sulfate 2 GM IV* 2 GM/50 ML BAG IVPB ONE (06:30)
[2019-05-10] MEDS: Vancomycin(*) 750 MG in NS 0.9% 250 ML* 250 ML IVPB SCH ×2 (06:56→18:26)
[2019-05-10] MEDS ORDERED: Potassium Phosphate IV* 15 MMOLE in NS 0.9% 250 ML* 250 ML IVPB ONE (07:29)
[2019-05-10] MEDS: Norepinephrine 16MCG/ML IVPRE* 4,000 MCG/250 ML BAG IV SCH (07:29)
[2019-05-10] MEDS: Thiamine TAB* 100 MG TAB PO SCH (08:45)
[2019-05-10] MEDS: Multivitamins ADULT w/MIN LIQ* 15 ML UDC PO SCH (08:45)
[2019-05-10] MEDS: Folic Acid TAB* 1 MG PO SCH (08:45)
[2019-05-10] MEDS: Octreotide Acetate* 500 MCG in NS 0.9% 100 ML* 100 ML IV SCH ×2 (08:50→18:26)
[2019-05-10] MEDS: Pantoprazole* 80 mg IN NS 80 MG/250 ML BAG IV SCH ×3 (10:12→20:22)
--- NOTE | 2019-05-10 11:41 | PN ---
Date of Service: 05/10/19 Critical Care Services: Stable overnight Vital Signs: Temp Pulse Resp BP SpO2 FiO2 38.7 C 106 18 101/63 96 40 05/10/19 07:45 05/10/19 07:45 05/10/19 06:00 05/10/19 07:40 05/10/19 07:45 05/09 04:00 Physical Exam: Gen: appears comfortably sedated HEENT: intubated, NCAT, PERRL Lungs: rhonchi left, clear right Cardiac: S1S2 regular Abdomen: soft, NT, mild dist, +BS Extremities: trace edema Neuro: sedated, moves all 4s Fluid Balance (Past 24 Hours): I= O= Net Intake & Output 05/08/19 05/09/19 05/10/19 05/11/19 06:59 06:59 06:59 06:59 Intake Total 2680.0 4957 5012 510 Output Total 3045 4395 2080 420 Balance -365.0 562 2932 90 Weight 64.3 kg 64.6 kg 65.7 kg Intake: IV Fluids 1267 3608 2289 400 ABX - CEFTRIAXONE 73 Banana Bag 552 1349 KCl 71 111 LR 956 1156 MAG 30 NS (0.9%) 167 1638 940 400 Vanco 121 IVPB 556 589 840 KCl 170 62 176 MAG 121 31 55 Vanco 265 298 265 Zosyn 198 344 Medicated IV 127.0 760 1343 CC - Propofol/Diprivan 211 Levophed 28.6 361 Octreotide 1.6 270 229 Precedex 67.5 Protonix 29.3 490 542 Oral 730 480 Tube Feeding 110 Hilton Irrigate Amount 60 Output: Urine 1500 Hilton 1545 4395 2080 420 Labs: Laboratory Results - last 24 hr 05/09/19 05/09/19 05/10/19 05:19 08:01 04:29 WBC RBC Hgb Hct MCV MCH MCHC RDW Plt Count MPV Neut % (Auto) Lymph % (Auto) [place] % (Auto) Eos % (Auto) Baso % (Auto) Absolute Neuts (auto) Absolute Lymphs (auto) Absolute Monos (auto) Absolute Eos (auto) Absolute Basos (auto) Absolute Nucleated RBC Nucleated RBC % Sodium 143 Potassium 3.1 L Chloride 109 Carbon Dioxide 27 Anion Gap 7 BUN 54 H Creatinine 1.06 Est GFR ( Amer) 86.5 Est GFR (Non-Af Amer) 71.5 BUN/Creatinine Ratio 50.9 H Glucose 102 H Calcium 8.5 L Phosphorus Magnesium 1.8 L Total Bilirubin 0.60 Direct Bilirubin 0.30 H Indirect Bilirubin 0.3 AST 60 H ALT 18 Alkaline Phosphatase 56 Total Protein 5.3 L Albumin 2.2 L Globulin 3.1 Albumin/Globulin Ratio 0.7 L Lipase 399 H 333 H Vancomycin Trough 13.5 05/10/19 05/10/19 04:29 04:29 WBC 20.8 H RBC 3.10 L Hgb 10.3 L Hct 31 L MCV 100 H MCH 33 H MCHC 33 RDW 14 Plt Count 129 L MPV 9.5 Neut % (Auto) 90.0 Lymph % (Auto) 3.1 [place] % (Auto) 6.8 Eos % (Auto) 0.0 Baso % (Auto) 0.1 Absolute Neuts (auto) 18.7 H Absolute Lymphs (auto) 0.7 L Absolute Monos (auto) 1.4 H Absolute Eos (auto) 0.0 Absolute Basos (auto) 0.0 Absolute Nucleated RBC 0.0 Nucleated RBC % 0.0 Sodium 148 H Potassium 3.1 L Chloride 117 H Carbon Dioxide 23 Anion Gap 8 BUN 45 H Creatinine 1.09 Est GFR ( Amer) 83.8 Est GFR (Non-Af Amer) 69.2 BUN/Creatinine Ratio 41.3 H Glucose 90 Calcium 8.6 Phosphorus 1.9 L Magnesium 1.6 L Total Bilirubin 0.80 Direct Bilirubin Indirect Bilirubin AST 100 H ALT 23 Alkaline Phosphatase 68 Total Protein 6.3 L Albumin 2.4 L Globulin 3.9 Albumin/Globulin Ratio 0.6 L Lipase Vancomycin Trough Nutrition: Jevity at 30, goal 60 Impression: Acute agitated delirium secondary to polysubstance withdrawal in setting of improving severe sepsis from pneumonia deteriorated 3/4 to acute hypoxic respiratory failure in the setting of his multiple concomitant processes and large airway aspiration now improving, currently on 24% Plan: Acute agitated delirium - secondary to acute polysubstance withdrawal and most importantly alcohol. Additional pertinent history provided by patient's sons at bedside on the evening of the 2nd. Pt apparently abusing multiple street drugs in addition to his prescribed opioids and is also a chronic heavy drinker in addition to the chronic marijuana use he did disclose to me on admission. He was doing well with benzos, precedex and geodon but 3/4 AM his ability to protect his airway and clear his secretions became more of a problem and the accumulated secretions resulted in progressive oxygen requirement and respiratory failure requiring intubation. He is now well-perfused on the ventilator with a small levophed requirement, making urine and FIO2 down to 24% this AM. Severe sepsis secondary to pneumonia - Had been doing well from that standpoint but after intubation he was suctioned for thick tenacious secretions which we have sent for culture. Abx were already broadened to include MRSA and the sputum is currently showing GPCs with speciation still pending. Unfortunately the added layer of withdrawal did, in fact, ultimately land him on a ventilator. WBC had risen to 33K and belly was distended so CT done. Belly is clear of actionable processes, trivial lipase elevation is noted and consistent with his chronic alcohol intake. WBC down to 20 today though he still does have fever. Withdrawal could be in play there as well. Broad Abx on board as Zosyn/ Vanco and will continue to follow the C&S. Clearly his improving ventilator requirement is not consistent with untreated pneumonia and CT was reassuring for the belly. Continue current. Tachycardia - ECHO surprisingly normal for his conduction system abnormalities ( RBBB, LAHB). Has had some tachycardia off his BB and we have transitioned to lopressor IV q6H to keep him under control which is working well overall. Situation discussed in detail with son and friend at bedside including plans to move forward with TLC today and general course of a patient in this situation which included discussion of difficulty weaning due to ongoing agitated delirium at that time often present and that some patients even require tracheostomy to liberate. We discussed loosely that 7-14 days of mechanical ventilation could be a pretty normal range in a patient like Juan J. They voiced understanding of that conversation as relayed from the other brother with whom I had it yesterday and appreciation for the care. Needs more access, will place TLC today after consent. Critical Care Time: 40 minutes
--- NOTE | 2019-05-10 11:50 | OP ---
Operative Report - Blank - Operative Report Date of Operation: 05/10/19 Note: Central Line Procedure Note Indication: Central Venous Access, Left IJ Diagnosis: Acute Respiratory Failure, LLL PNA, ETOH Withdrawal Performed by: Tiffany Walls APN, [employer], Supervised by Josue Zhou MD, ICU Attending Consent: Vicky Huntley, sister/HCP Obtained via telephone Risks of procedure were explained to patient's sister/HCP via telephone at 0930. All potential risks of pain/discomfort, bleeding, infection, pneumothorax , hemothorax, need for chest tube, air/wire embolism, vessel injury, , and failed procedure were disclosed and understanding verbalized by healthcare proxy. Patient unable to consent himself, as he is acutely intubated and sedated. [place] Protocol: Time-out was performed at 10:27am and the correct patient and site were verified. Alie Colorado RN at bedside to assist. - Prior labs/history was reviewed prior to procedure - Full sterile precautions with chlorhexidine/gowns/gloves utilized. Site was draped is the usual sterile fashion. - Left internal jugular vein was visualized with ultrasound - Vessel was accessed under ultrasound guidance with return of nonpulsatile blood. A guidewire was passed into the vessel and confirmed in vessel with ultrasound. 1 attempt was made to access vessel. Vessel was dilated and catheter was passed over wire into vessel. All ports demonstrated good blood return and flushed. Catheter was sutured to site and dressing applied. Adequate hemostasis was achieved. EBL 3 cc No immediate complications were noted, patient tolerated procedure well. Post Procedure CXR: Report pending
[2019-05-10] MEDS: D5W 1/2 NS KCl 20 Meq 1000 ML* 1,000 ML IV SCH (12:00)
[2019-05-11] MEDS: D5W 1/2 NS KCl 20 Meq 1000 ML* 1,000 ML IV SCH (00:11)
[2019-05-11] MEDS: Pantoprazole* 80 mg IN NS 80 MG/250 ML BAG IV SCH ×4 (01:11→22:58)
[2019-05-11] MEDS: Piperacillin/Tazobac ADVAN(*) 3.375 GM in NS 0.9% 100 ML* 100 ML IVPB SCH ×3 (01:39→17:14)
[2019-05-11] MEDS: Chlorhexidine MOUTHWASH 0.12%* 15 ML UDC TOPICAL SCH ×6 (02:37→22:29)
[2019-05-11] MEDS: Octreotide Acetate* 500 MCG in NS 0.9% 100 ML* 100 ML IV SCH (04:33)
[2019-05-11] MEDS: Vancomycin(*) 750 MG in NS 0.9% 250 ML* 250 ML IVPB SCH ×2 (05:44→17:41)
[2019-05-11 05:55] LABS: Hematocrit 24 % (42-52); Hemoglobin 8.1 g/dL (14.0-18.0); Mean Corpuscular HGB Conc 33 g/dL (31-36); Mean Corpuscular Hemoglobin 33 pg (27-31); Mean Corpuscular Volume 100 fL (80-94); Mean Platelet Volume 10.1 fL (7.4-10.4); Platelet Count 100 10^3/uL (150-450); Red Blood Count 2.45 10^6 /uL (4.18-5.48); Red Cell Distribution Width 15 % (10-15); White Blood Count 15.8 10^3/uL (3.5-10.8)
[2019-05-11 06:09] LABS: Activated Partial Thrombo Time 30.1 seconds (26.0-38.0); INR 1.38 (0.82-1.09)
[2019-05-11 06:10] LABS: Calcium 8.1 mg/dL (8.6-10.3); EGFR African American 103.2 (>60); EGFR Non-African American 85.3 (>60); Magnesium 1.4 mg/dL (1.9-2.7); Potassium 3.9 mmol/L (3.5-5.0)
[2019-05-11 06:26] LABS: ABS Lymphocytes 0.6 10^3/ul (1.0-4.8); ABS Monocytes 1.1 10^3/ul (0-0.8); ABS Neutrophils 14.1 10^3/ul (1.5-7.7); Eosinophil % 0.1 %; Lymphocyte % 3.6 %
[2019-05-11] MEDS: Propofol* 100 ML IV SCH ×2 (06:47→14:12)
[2019-05-11] MEDS: Acetaminophen ADULT LIQ* 650 MG/20.3 ML UDC PO PRN ×2 (07:16→15:31)
[2019-05-11 08:07] LABS: Phosphorus 1.6 mg/dL (2.5-5.0)
[2019-05-11] MEDS: Multivitamins ADULT w/MIN LIQ* 15 ML UDC PO SCH (08:15)
[2019-05-11] MEDS: Thiamine TAB* 100 MG TAB PO SCH (08:16)
[2019-05-11] MEDS: Folic Acid TAB* 1 MG PO SCH (08:16)
[2019-05-11] MEDS ORDERED: Magnesium Sulf 4 GM/100 ML IV* 4,000 MG/100 ML BAG IVPB ONE (09:30)
[2019-05-11] MEDS ORDERED: Potassium Phosphate IV* 15 MMOLE in NS 0.9% 250 ML* 250 ML IVPB ONE (10:00)
[2019-05-11] MEDS: Metoprolol Tartrate IV* 1 MG/ML 5 ML VIAL IV PRN (11:27)
[2019-05-11] MEDS ORDERED: fentaNYL INFUSION 50 MCG/ML* 2,500 MCG/50 ML BAG IV SCH (12:00)
--- NOTE | 2019-05-11 16:33 | BRIEFOPN ---
Brief Operative/Procedure Note - Operation Details Pre-Op Diagnosis: Resp distress, thick secretions Post-Op Diagnosis: Thick, copius secretions Procedures: Bronchoscopy and bronchial washings Surgeon(s)/Proceduralists: sherrell Gold Anesthesia: Sedated with propofol nad fentanyl drips Estimated Blood Loss: None Findings: Copious thick secretions seen to be eminating from ETT, left and rt bronchi. Mucus plugs and green to dark brown secretions were suctioned. Specimen(s)/Culture(s) Description: Bronchial washings from microbiology testing Complications: None
--- NOTE | 2019-05-11 16:46 | PN ---
Date of Service: 05/11/19 - [facility] note Critical Care Services: Pt seen and examined at bedside. Overnight events noted. Plan of care discussed in interdisciplinary rounds Continues to be febrile Is titrated off Levo Has tachycardia Pt tacypneic and not in sync with ventilator Bronch performed at bedside. Vital Signs: Temp Pulse Resp BP SpO2 FiO2 101.3 F 107 22 90/59 100 30 05/11/19 16:00 05/11/19 16:00 05/11/19 16:00 05/11/19 16:00 05/11/19 16:00 05/10 16:00 Physical Exam: Gen: Pt is tachypneic HEENT: ETT+ Lungs: Crackles and rhonchi+ Cardiac: S1, S2+ Abdomen: Soft, BS+ Extremities: Normal ROM Neuro: No focal deficits, agitated when sedation was decreased Skin: No rash Fluid Balance (Past 24 Hours): I= 1690 O=605 Net 1085 Intake & Output 05/09/19 05/10/19 05/11/19 05/12/19 06:59 06:59 06:59 06:59 Intake Total 4957 5012 4810 1690 Output Total 4395 2080 1870 605 Balance 562 2932 2940 1085 Weight 142 lb 6.698 oz 144 lb 13.499 oz 160 lb 0.889 oz Intake: IV Fluids 3608 2289 2113 798 Banana Bag 552 1349 D5W 1/2 NS 20 meq KCL 1466 223 KCl 111 LR 1156 MAG sulfate 30 100 NS (0.9%) 1638 940 647 125 Vanco 121 Zosyn 100 potassium phosphate 250 IVPB 006 126 0439 KCl 62 176 MAG sulfate 31 55 88 Vanco 298 265 580 Zosyn 198 344 310 potassium phosphate 500 Medicated IV 760 1343 777 144 CC - Propofol/Diprivan 211 150 82 Levophed 361 123 Octreotide 270 229 155 62 Protonix 490 542 349 IV Narcotic Infusion 0 Fentanyl 0 Oral 480 Tube Feeding 442 148 Tube Feeding Flush Amount 600 Hilton Irrigate Amount 60 Output: Hilton 4395 2080 1870 605 Other: Date of Last Bowel 05/10/2019 Movement # Bowel Movements 1 Estimated Stool Amount Large Labs: Laboratory Results - last 24 hr 05/11/19 05/11/19 05/11/19 05:38 05:38 05:38 WBC 15.8 H RBC 2.45 L Hgb 8.1 L Hct 24 L MCV 100 H MCH 33 H MCHC 33 RDW 15 Plt Count 100 L MPV 10.1 Neut % (Auto) 89.5 Lymph % (Auto) 3.6 [place] % (Auto) 6.7 Eos % (Auto) 0.1 Baso % (Auto) 0.1 Absolute Neuts (auto) 14.1 H Absolute Lymphs (auto) 0.6 L Absolute Monos (auto) 1.1 H Absolute Eos (auto) 0.0 Absolute Basos (auto) 0.0 Absolute Nucleated RBC 0.0 Nucleated RBC % 0.0 INR (Anticoag Therapy) 1.38 H APTT 30.1 Sodium 151 H Potassium 3.9 Chloride 126 H Carbon Dioxide 22 Anion Gap 3 BUN 30 H Creatinine 0.91 Est GFR ( Amer) 103.2 Est GFR (Non-Af Amer) 85.3 BUN/Creatinine Ratio 33.0 H Glucose 145 H Lactic Acid Calcium 8.1 L Phosphorus 1.6 L Magnesium 1.4 L 05/11/19 15:23 WBC RBC Hgb Hct MCV MCH MCHC RDW Plt Count MPV Neut % (Auto) Lymph % (Auto) [place] % (Auto) Eos % (Auto) Baso % (Auto) Absolute Neuts (auto) Absolute Lymphs (auto) Absolute Monos (auto) Absolute Eos (auto) Absolute Basos (auto) Absolute Nucleated RBC Nucleated RBC % INR (Anticoag Therapy) APTT Sodium Potassium Chloride Carbon Dioxide Anion Gap BUN Creatinine Est GFR ( Amer) Est GFR (Non-Af Amer) BUN/Creatinine Ratio Glucose Lactic Acid 1.1 Calcium Phosphorus Magnesium Studies: CXR 05/09: LLL PNA and effusion, ETT in place CT chest/abdomen: Left lower lobe PNA, small b/l effusions CT brain 05/10: No acute abnormality Nutrition: Tube feeds Impression: 59 y o m with polysubstance abuse, on opiods at home, ETOH abuse, abusing multiple street drugs, a/w withdrawal, Acute agitated delirium. Pt also found to have PNA. Pt had complicated course with resp failure requiring intubation with concern for possible aspiration, GIB. Pt continued to remain agitated, was tachypneic on vent today. Bronchoscopy performed at bedside today. 1. AMS/Acute agitated delirium 2. Polysubstance use, drug withdrawl 3. Resp failure s/p intubation 4. PNA 5. Anemia Plan: Acute agitated delirium: Was agitated again this morning when sedation was held. Will c/w propofol, fentanyl added for pain. CT brain negative. Will check ammonia. Will consider EEG if mental status does not improve. Likely sepsis and delirium also contributing to mental status changes. Pt with polysubstance abuse, also uses street drugs, unclear duration for withdrawl. Resp failure/PNA: Bronchoscopy performed at bedside, copius secretions, mucus plugs noted, suctioned. Resp status much improved post bronch. Sputum cx showed normal mago. Bronchial washings sent. Vent bundle ordered. Pulm toilet. c/w abx Fever: Lactate normal, hypotension resolved. Tylenol prn. CT chest with PNA. CT abdomen showed colitis, no other acute issues. Septic w/u repeated. Anemia: Had guaic positive stool and GI bleed 2 days ago. No melena today. Slight drop today, likely dilutional, will monitor. Hypernatremia: Will c/w free water. Monitor I/O Tachycardia, hypertension: Started on metoprolol DVTPx: Will restart heparin as pt is high risk for blood clots. Will monitor for bleeding GI ppx: PPI Critical Care Time: 30 min
[2019-05-11 19:47] LABS: Hematocrit 24 % (42-52); Mean Corpuscular HGB Conc 33 g/dL (31-36); Mean Corpuscular Hemoglobin 33 pg (27-31); Mean Corpuscular Volume 101 fL (80-94); Platelet Count 99 10^3/uL (150-450); Red Blood Count 2.39 10^6 /uL (4.18-5.48); Red Cell Distribution Width 15 % (10-15); White Blood Count 15.7 10^3/uL (3.5-10.8)
[2019-05-11 20:03] LABS: Albumin 1.9 g/dL (3.2-5.2); Albumin/Globulin Ratio 0.6 (1-3); BUN/Creatinine Ratio 26.7 (8-20); Calcium 8.1 mg/dL (8.6-10.3); EGFR African American 87.5 (>60); EGFR Non-African American 72.3 (>60); Globulin 3.2 g/dL (2-4); Magnesium 2.1 mg/dL (1.9-2.7); Phosphorus 3.4 mg/dL (2.5-5.0); Potassium 4.3 mmol/L (3.5-5.0); Total Bilirubin 0.8 mg/dL (0.2-1.0); Total Protein 5.1 g/dL (6.4-8.9)
[2019-05-11 20:13] LABS: ABS Lymphocytes 0.5 10^3/ul (1.0-4.8); ABS Monocytes 1.2 10^3/ul (0-0.8); ABS Neutrophils 13.9 10^3/ul (1.5-7.7); Eosinophil % 0.3 %; Lymphocyte % 3.3 %; Nucleated Red Blood Cells % 0.1
[2019-05-11 20:18] LABS: Polychromasia 2+
[2019-05-11] MEDS: Heparin VIAL(*) 5000 UNITS/ML VIAL (FIVE THOUSAND) SUBCUT SCH (22:29)
[2019-05-12] MEDS: Chlorhexidine MOUTHWASH 0.12%* 15 ML UDC TOPICAL SCH ×6 (01:36→21:19)
[2019-05-12] MEDS: Piperacillin/Tazobac ADVAN(*) 3.375 GM in NS 0.9% 100 ML* 100 ML IVPB SCH (01:36)
[2019-05-12] MEDS: Acetaminophen ADULT LIQ* 650 MG/20.3 ML UDC PO PRN (02:04)
[2019-05-12] MEDS: LORazepam INJ* 2 MG/ML 1 ML VIAL IV PUSH PRN ×3 (02:04→20:02)
[2019-05-12] MEDS: Propofol* 100 ML IV SCH ×3 (02:57→16:48)
[2019-05-12] MEDS: Pantoprazole* 80 mg IN NS 80 MG/250 ML BAG IV SCH ×5 (03:00→23:55)
--- NOTE | 2019-05-12 04:35 | PRO ---
BRONCHOSCOPY REPORT: DATE OF PROCEDURE: 05/11/19 INDICATION FOR PROCEDURE: Copious secretions. ANESTHESIA: The patient intubated and on sedation with propofol and fentanyl drips. PROCEDURE IN DETAIL: Informed consent was obtained from patient's son as the patient could not consent to the procedure. All the risks and benefits associated with the procedure were thoroughly explained. Appropriate time-out was performed and agreed on by attending staff. A disposable ambulatory scope was utilized for the procedure when the alarms were adjusted. Bronchoscope was inserted through ET tube. The patient noted to have very thick copious secretions emanating from the ET tube. Secretions were suctioned out. The patient had very thick green and dark brown secretions on both sides, which were suctioned. Specimen was taken and was sent to lab for microbiological testing. Bronchoscope was then withdrawn. The patient tolerated the procedure well. The patient appeared to be more comfortable post procedure. [id number]/CPS #: [id number] MTDD
[2019-05-12] MEDS: Heparin VIAL(*) 5000 UNITS/ML VIAL (FIVE THOUSAND) SUBCUT SCH ×3 (05:41→21:20)
[2019-05-12] MEDS: Vancomycin(*) 750 MG in NS 0.9% 250 ML* 250 ML IVPB SCH ×2 (05:41→16:55)
[2019-05-12 05:49] LABS: Hematocrit 23 % (42-52); Hemoglobin 7.5 g/dL (14.0-18.0); Mean Corpuscular HGB Conc 33 g/dL (31-36); Mean Corpuscular Hemoglobin 34 pg (27-31); Mean Corpuscular Volume 101 fL (80-94); Mean Platelet Volume 9.8 fL (7.4-10.4); Platelet Count 97 10^3/uL (150-450); Red Blood Count 2.23 10^6 /uL (4.18-5.48); Red Cell Distribution Width 15 % (10-15); White Blood Count 14.7 10^3/uL (3.5-10.8)
[2019-05-12 05:53] LABS: INR 1.44 (0.82-1.09)
[2019-05-12 05:57] LABS: Albumin 1.8 g/dL (3.2-5.2); Albumin/Globulin Ratio 0.6 (1-3); Calcium 7.9 mg/dL (8.6-10.3); EGFR African American 85.6 (>60); EGFR Non-African American 70.7 (>60); Globulin 3.2 g/dL (2-4); Magnesium 1.8 mg/dL (1.9-2.7); Phosphorus 3.4 mg/dL (2.5-5.0); Potassium 4.1 mmol/L (3.5-5.0); Total Bilirubin 0.8 mg/dL (0.2-1.0)
[2019-05-12 06:29] LABS: ABS Eosinophils 0.1 10^3/ul (0-0.6); ABS Lymphocytes 0.5 10^3/ul (1.0-4.8); ABS Monocytes 0.9 10^3/ul (0-0.8); Eosinophil % 0.8 %; Large Platelets Present; Lymphocyte % 3.7 %; Nucleated Red Blood Cells % 0.1
[2019-05-12] MEDS ORDERED: Albumin Human 25%* 12.5 GM/50 ML BTL IV ONE (07:56)
[2019-05-12] MEDS: Multivitamins ADULT w/MIN LIQ* 15 ML UDC PO SCH (08:01)
[2019-05-12] MEDS: Thiamine TAB* 100 MG TAB PO SCH (08:01)
[2019-05-12] MEDS: Folic Acid TAB* 1 MG PO SCH (08:01)
[2019-05-12] MEDS: Cefepime 1 GM in Dextrose(*) 1 GM/50 ML BAG IV SCH ×2 (09:40→20:02)
[2019-05-12] MEDS: Albuterol/Ipratropium NEB.SOL* Albuterol 2.5 MG/Ipratropium 0.5 MG 3 ML INH SCH ×3 (09:50→19:16)
[2019-05-12] MEDS ORDERED: Magnesium Sulfate 2 GM IV* 2 GM/50 ML BAG IVPB ONE (12:28)
[2019-05-12] MEDS ORDERED: Furosemide IV* 10 MG/ML VIAL (40 MG) IV SLOW PU ONE (14:09)
--- NOTE | 2019-05-12 15:02 | PN ---
Date of Service: 05/12/19 - [facility] note Critical Care Services: Pt seen and examined at bedside. Overnight events noted- pt became tachycardic, hyperthermic last night, responded to Ativan and tylenol Plan of care discussed with bedside RN Low grade fever today Not requiring Levo Has tachycardia Less secretions today Vital Signs: Temp Pulse Resp BP SpO2 FiO2 100.2 F 107 22 145/98 96 30 05/12/19 13:00 05/12/19 13:00 05/12/19 13:05/12/19 13:05/12/19 13:05/11 13:12 Physical Exam: Gen: Pt is s edated, responds to painful stimuli HEENT: PERRLA, ETT+ Lungs: Diminished at bases, rhonchi+ Cardiac: S1, S2+ Abdomen: Distended, BS+ Extremities: Withdraws to pain Neuro: Sedated, unable to assess Skin: NO rash IV access: Lt IJ Fluid Balance (Past 24 Hours): B=2554 O= 1265 Net 2487 Intake & Output 05/10/19 05/11/19 05/12/19 05/13/19 06:59 06:59 06:59 07:59 Intake Total 5012 4810 3752.5 338 Output Total 2080 1870 1265 289 Balance 2932 2940 2487.5 49 Weight 144 lb 13.499 oz 160 lb 0.889 oz 163 lb 12.095 oz Intake: IV Fluids 2289 2113 910 Banana Bag 1349 D5W 1/2 NS 20 meq KCL 1466 223 MAG sulfate 100 NS (0.9%) 940 647 237 Zosyn 100 potassium phosphate 250 IVPB 840 1478 471 288 KCl 176 MAG sulfate 55 88 Vanco 265 580 270 288 Zosyn 344 310 201 potassium phosphate 500 Medicated IV 1343 777 665.5 CC - Propofol/Diprivan 211 150 216.5 Levophed 361 123 Octreotide 229 155 62 Protonix 542 349 387 IV Narcotic Infusion 0 Fentanyl 0 Oral 480 Tube Feeding 442 506 Tube Feeding Flush Amount 1200 50 Hilton Irr[place] Amount 60 Output: Hilton 0 1870 1265 289 Other: Date of Last Bowel 05/10/2019 Movement # Bowel Movements 1 Estimated Stool Amount Large Labs: Laboratory Results - last 24 hr 05/11/19 05/11/19 05/11/19 13:53 15:23 18:00 WBC RBC Hgb Hct MCV MCH MCHC RDW Plt Count MPV Neut % (Auto) Lymph % (Auto) [place] % (Auto) Eos % (Auto) Baso % (Auto) Absolute Neuts (auto) Absolute Lymphs (auto) Absolute Monos (auto) Absolute Eos (auto) Absolute Basos (auto) Absolute Nucleated RBC Immature Gran % Neutrophils % Lymphocytes % Monocytes % Metamyelocytes % Nucleated RBC % Large Platelets Normal RBC Morphology Polychromasia Macrocytosis INR (Anticoag Therapy) Sodium Potassium Chloride Carbon Dioxide Anion Gap BUN Creatinine Est GFR ( Amer) Est GFR (Non-Af Amer) BUN/Creatinine Ratio Glucose POC Glucose (mg/dL) 142 H 162 H Lactic Acid 1.1 Calcium Phosphorus Magnesium Total Bilirubin AST ALT Alkaline Phosphatase Ammonia Total Protein Albumin Globulin Albumin/Globulin Ratio 05/11/19 05/11/19 05/12/19 19:30 19:30 00:46 WBC 15.7 H RBC 2.39 L Hgb 8.0 L Hct 24 L MCV 101 H MCH 33 H MCHC 33 RDW 15 Plt Count 99 L MPV 10.0 Neut % (Auto) 88.8 Lymph % (Auto) 3.3 [place] % (Auto) 7.5 Eos % (Auto) 0.3 Baso % (Auto) 0.1 Absolute Neuts (auto) 13.9 H Absolute Lymphs (auto) 0.5 L Absolute Monos (auto) 1.2 H Absolute Eos (auto) 0.0 Absolute Basos (auto) 0.0 Absolute Nucleated RBC 0.0 Immature Gran % 2.0 Neutrophils % 86.0 Lymphocytes % 4.0 Monocytes % 8.0 Metamyelocytes % 2.0 Nucleated RBC % 0.1 Large Platelets Normal RBC Morphology Not Reportable Polychromasia 2+ Macrocytosis 2+ INR (Anticoag Therapy) Sodium 152 H Potassium 4.3 Chloride 128 H Carbon Dioxide 21 L Anion Gap 3 BUN 28 H Creatinine 1.05 Est GFR ( Amer) 87.5 Est GFR (Non-Af Amer) 72.3 BUN/Creatinine Ratio 26.7 H Glucose 125 H POC Glucose (mg/dL) 143 H Lactic Acid Calcium 8.1 L Phosphorus 3.4 Magnesium 2.1 Total Bilirubin 0.80 AST 152 H ALT 61 H Alkaline Phosphatase 130 H Ammonia Total Protein 5.1 L Albumin 1.9 L Globulin 3.2 Albumin/Globulin Ratio 0.6 L 05/12/19 05/12/19 05/12/19 05:30 05:30 05:30 WBC 14.7 H RBC 2.23 L Hgb 7.5 L Hct 23 L MCV 101 H MCH 34 H MCHC 33 RDW 15 Plt Count 97 L MPV 9.8 Neut % (Auto) 88.9 Lymph % (Auto) 3.7 [place] % (Auto) 6.5 Eos % (Auto) 0.8 Baso % (Auto) 0.1 Absolute Neuts (auto) 13.0 H Absolute Lymphs (auto) 0.5 L Absolute Monos (auto) 0.9 H Absolute Eos (auto) 0.1 Absolute Basos (auto) 0.0 Absolute Nucleated RBC 0.0 Immature Gran % Neutrophils % Lymphocytes % Monocytes % Metamyelocytes % Nucleated RBC % 0.1 Large Platelets Present Normal RBC Morphology Polychromasia Macrocytosis INR (Anticoag Therapy) Sodium 153 H Potassium 4.1 Chloride 128 H Carbon Dioxide 21 L Anion Gap 4 BUN 30 H Creatinine 1.07 Est GFR ( Amer) 85.6 Est GFR (Non-Af Amer) 70.7 BUN/Creatinine Ratio 28.0 H Glucose 122 H POC Glucose (mg/dL) Lactic Acid Calcium 7.9 L Phosphorus 3.4 Magnesium 1.8 L Total Bilirubin 0.80 AST 93 H ALT 48 Alkaline Phosphatase 99 Ammonia 58 H Total Protein 5.0 L Albumin 1.8 L Globulin 3.2 Albumin/Globulin Ratio 0.6 L 05/12/19 05/12/19 05:30 12:45 WBC RBC Hgb Hct MCV MCH MCHC RDW Plt Count MPV Neut % (Auto) Lymph % (Auto) [place] % (Auto) Eos % (Auto) Baso % (Auto) Absolute Neuts (auto) Absolute Lymphs (auto) Absolute Monos (auto) Absolute Eos (auto) Absolute Basos (auto) Absolute Nucleated RBC Immature Gran % Neutrophils % Lymphocytes % Monocytes % Metamyelocytes % Nucleated RBC % Large Platelets Normal RBC Morphology Polychromasia Macrocytosis INR (Anticoag Therapy) 1.44 H Sodium Potassium Chloride Carbon Dioxide Anion Gap BUN Creatinine Est GFR ( Amer) Est GFR (Non-Af Amer) BUN/Creatinine Ratio Glucose POC Glucose (mg/dL) 129 H Lactic Acid Calcium Phosphorus Magnesium Total Bilirubin AST ALT Alkaline Phosphatase Ammonia Total Protein Albumin Globulin Albumin/Globulin Ratio Studies: NO new studies Nutrition: Tube feeds Impression: 59 y o m with polysubstance abuse, on opiods at home, ETOH abuse, abusing multiple street drugs, a/w withdrawal, Acute agitated delirium. Pt also found to have PNA. Pt had complicated course with resp failure requiring intubation with concern for possible aspiration, GIB. Pt continued to remain agitated, was tachypneic on vent today. Bronchoscopy performed at bedside showed copius secretions-green/yellow. 1. AMS/Acute agitated delirium 2. Polysubstance use, drug withdrawl 3. Resp failure s/p intubation 4. PNA 5. Anemia 6. GI bleed this admission 7/ H/o Cirrhosis and ascites 8. Elevated LFTs 9. Hypoalbuminemia Plan: Neuro: Acute agitated delirium in setting of polysubstance abuse, ETOH abuse. Gets agitated and reaches for ETT when sedation held. Ammonia slightly elevated. Will administer lactulose if no BM in 24 hrs. Will c/w propofol, and fentanyl added for pain. CT brain negative. Will consider EEG if mental status does not improve over next 24 hrs. Likely sepsis and delirium also contributing to mental status changes. Pulm: Resp failure/PNA: Bronchoscopy performed 05/10, copius secretions, mucus plugs noted, suctioned. Resp status much improved post bronch. Sputum cx showed normal mago. Bronchial washings cx pending. Vent bundle ordered. Pulm toilet. c /w abx. Will rpt CXR in am CVS: Tachycardia+, hypertension, c/w metoprolol. ID: Low grade fevers today. Lactate normal, hypotension resolved. Tylenol prn. CT chest with PNA in LLL. CT abdomen showed colitis, no other acute issues. Septic w/u negative to date. Haem: Anemia: Had guaic positive stool and GI bleed 2 days ago. No melena today. Slight drop in H&H, pt with positive fluid balance will order lasix. Monitor h&H closely. Thrombocytopenia 2/2 cirrhosis stable. Renal: Hypernatremia, hypercloremia- Suspect hypervolemic hypernatremia due to loss of free water. Will admisnister loop diuretic and correct water deficit with D5W. Will c/w free water through PEG. Zosyn was also d/milli and serum and urine osmolality ordered to r/o SIADH. Monitor I/O closely. Endo: BS slightly elevated, will c/w SS insulin. Musculosketal: No issues. Skin intact. Will c/w frequent turning and positioning. Psycho/Social: Family at bedside and were updated DVTPx: c/w heparin sq as pt is high risk for blood clots. Will monitor for bleeding GI ppx: PPI IV access: Lt IJ Hilton: Liban Baird catheter in place Critical Care Time: 30 min
[2019-05-12] MEDS: D5W 250 ML BAG* 250 ML IV SCH (18:08)
[2019-05-13] MEDS: Albuterol/Ipratropium NEB.SOL* Albuterol 2.5 MG/Ipratropium 0.5 MG 3 ML INH SCH ×5 (01:47→19:54)
[2019-05-13] MEDS: Chlorhexidine MOUTHWASH 0.12%* 15 ML UDC TOPICAL SCH ×6 (01:58→21:19)
[2019-05-13] MEDS: Pantoprazole* 80 mg IN NS 80 MG/250 ML BAG IV SCH ×4 (03:34→14:55)
[2019-05-13] MEDS: LORazepam INJ* 2 MG/ML 1 ML VIAL IV PUSH PRN ×3 (04:04→09:50)
[2019-05-13] MEDS: Propofol* 100 ML IV SCH (04:07)
[2019-05-13] MEDS: Heparin VIAL(*) 5000 UNITS/ML VIAL (FIVE THOUSAND) SUBCUT SCH ×3 (05:46→21:19)
[2019-05-13] MEDS: Vancomycin(*) 750 MG in NS 0.9% 250 ML* 250 ML IVPB SCH ×2 (05:46→17:32)
[2019-05-13 06:30] LABS: ALT 39 U/L (7-52); AST 60 U/L (13-39); Albumin 2.1 g/dL (3.2-5.2); Albumin/Globulin Ratio 0.6 (1-3); Alkaline Phosphatase 101 U/L (34-104); BUN/Creatinine Ratio 28.4 (8-20); Blood Urea Nitrogen 27 mg/dL (6-24); CO2 Carbon Dioxide 20 mmol/L (22-32); EGFR African American 98.2 (>60); EGFR Non-African American 81.1 (>60); Globulin 3.7 g/dL (2-4); Glucose 119 mg/dL (70-100); Potassium 3.8 mmol/L (3.5-5.0); Total Protein 5.8 g/dL (6.4-8.9)
[2019-05-13 06:40] LABS: Anion Gap 6 mmol/L (2-11); Chloride 122 mmol/L (101-111); Sodium 148 mmol/L (135-145)
[2019-05-13] MEDS ORDERED: KCL 10 MEQ/50 ML IVPREMIX* 10 MEQ/50 ML BAG IV ONE (07:44)
[2019-05-13 08:01] LABS: ABS Eosinophils 0.2 10^3/ul (0-0.6); ABS Lymphocytes 0.6 10^3/ul (1.0-4.8); ABS Monocytes 0.9 10^3/ul (0-0.8); ABS Neutrophils 17.6 10^3/ul (1.5-7.7); Eosinophil % 1.1 %; Hematocrit 24 % (42-52); Hemoglobin 8.1 g/dL (14.0-18.0); Lymphocyte % 3.3 %; Mean Corpuscular HGB Conc 33 g/dL (31-36); Mean Corpuscular Hemoglobin 34 pg (27-31); Mean Corpuscular Volume 100 fL (80-94); Mean Platelet Volume 9.8 fL (7.4-10.4); Nucleated Red Blood Cells % 0.1; Platelet Count 138 10^3/uL (150-450); Red Blood Count 2.42 10^6 /uL (4.18-5.48); Red Cell Distribution Width 15 % (10-15); White Blood Count 19.3 10^3/uL (3.5-10.8)
[2019-05-13 08:04] LABS: Magnesium 1.7 mg/dL (1.9-2.7); Phosphorus 3.6 mg/dL (2.5-5.0)
[2019-05-13] MEDS: Thiamine TAB* 100 MG TAB PO SCH (08:17)
[2019-05-13] MEDS: Folic Acid TAB* 1 MG PO SCH (08:17)
[2019-05-13] MEDS: Multivitamins ADULT w/MIN LIQ* 15 ML UDC PO SCH (08:17)
[2019-05-13 08:25] LABS: Folate 15.24 ng/mL (>3.99)
[2019-05-13] MEDS: Cefepime 1 GM in Dextrose(*) 1 GM/50 ML BAG IV SCH ×2 (08:53→20:23)
[2019-05-13] MEDS: Metoprolol Tartrate IV* 1 MG/ML 5 ML VIAL IV PRN (10:03)
[2019-05-13] MEDS: Acetaminophen ADULT LIQ* 650 MG/20.3 ML UDC PO PRN (10:03)
[2019-05-13] MEDS: Dexmedetomidine* 1,000 MCG in NS 0.9% 250 ML* 240 ML IV SCH (10:11)
[2019-05-13] MEDS ORDERED: Acetylcysteine INHALATION SOL* 200 MG/ML NEB.SOLN 10 ML ONE (10:36)
[2019-05-13] MEDS ORDERED: Acetylcysteine INHALATION SOL* 200 MG/ML NEB.SOLN 10 ML INH ONE (11:16)
[2019-05-13] MEDS ORDERED: Magnesium Sulfate 2 GM IV* 2 GM/50 ML BAG IVPB ONE (11:39)
[2019-05-13] MEDS ORDERED: Furosemide IV* 10 MG/ML VIAL (40 MG) IV SLOW PU ONE (11:46)
--- NOTE | 2019-05-13 11:46 | PN ---
Date of Service: 05/13/19 - [facility] note Critical Care Services: Pt seen and examined at bedside. Plan of care discussed with bedside RN Pt was tachycardic, tachypneic last night, responded to Ativan Continues to have low grade fever Pt was placed on spontaneous after sedation was held. Pt couldnot tolerate, appeared to be having thick secretions and plugging. He started to desaturate and was not able to pull enough volumes, placed back on full support with improvement Bronchoscopy performed at bedside Vital Signs: Temp Pulse Resp BP SpO2 FiO2 100.4 F 101 22 115/82 100 55 05/13/19 11:15 05/13/19 11:15 05/13/19 11:00 05/13/19 11:15 05/13/19 11:15 05/12 10:07 Physical Exam: Gen: Pt in NAD, sedated on vent HEENT: ETT+ Lungs: Dimnsihed air entry b/l, rhonchi and crackles+ Cardiac: S1, S2+ Abdomen: Soft, BS+ Extremities: Normal ROM, withdraws to pain Neuro: Not able to follow commands when sedation held, moves extremities spontaneously, reaches for ETT Skin: No rash Fluid Balance (Past 24 Hours): I= 428 O=230 Net 198 Intake & Output 05/11/19 05/12/19 05/13/19 05/14/19 05:59 05:59 06:59 06:59 Intake Total 428 Output Total 230 Balance 198 Weight Intake: IV Fluids 37 D5W D5W 1/2 NS 20 meq KCL MAG sulfate NS (0.9%) Vanco 37 Zosyn potassium phosphate IVPB 291 Albumin 25% MAG sulfate Vanco 291 Zosyn cefepime potassium phosphate Medicated IV CC - Propofol/Diprivan Levophed Octreotide Protonix IV Narcotic Infusion Fentanyl Tube Feeding Tube Feeding Flush Amount 100 Output: Hilton 230 Other: Date of Last Bowel Movement # Bowel Movements Estimated Stool Amount Labs: Laboratory Results - last 24 hr 05/12/19 05/12/19 05/12/19 12:45 16:09 16:09 WBC RBC Hgb Hct MCV MCH MCHC RDW Plt Count MPV Neut % (Auto) Lymph % (Auto) [place] % (Auto) Eos % (Auto) Baso % (Auto) Absolute Neuts (auto) Absolute Lymphs (auto) Absolute Monos (auto) Absolute Eos (auto) Absolute Basos (auto) Absolute Nucleated RBC Nucleated RBC % Sodium Potassium Chloride Carbon Dioxide Anion Gap BUN Creatinine Est GFR ( Amer) Est GFR (Non-Af Amer) BUN/Creatinine Ratio Glucose POC Glucose (mg/dL) 129 H Serum Osmolality Calcium Phosphorus Magnesium Total Bilirubin AST ALT Alkaline Phosphatase Total Protein Albumin Globulin Albumin/Globulin Ratio Vitamin B12 Folate Ur Specific [place] Urine Osmolality 335 U Sodium Concentration 128 05/12/19 05/12/19 05/12/19 16:09 17:33 18:13 WBC RBC Hgb Hct MCV MCH MCHC RDW Plt Count MPV Neut % (Auto) Lymph % (Auto) [place] % (Auto) Eos % (Auto) Baso % (Auto) Absolute Neuts (auto) Absolute Lymphs (auto) Absolute Monos (auto) Absolute Eos (auto) Absolute Basos (auto) Absolute Nucleated RBC Nucleated RBC % Sodium 151 H Potassium Chloride Carbon Dioxide Anion Gap BUN Creatinine Est GFR ( Amer) Est GFR (Non-Af Amer) BUN/Creatinine Ratio Glucose POC Glucose (mg/dL) 125 H Serum Osmolality Calcium Phosphorus Magnesium Total Bilirubin AST ALT Alkaline Phosphatase Total Protein Albumin Globulin Albumin/Globulin Ratio Vitamin B12 Folate Ur Specific [place] 1.006 L Urine Osmolality U Sodium Concentration 05/12/19 05/13/19 05/13/19 23:43 06:03 06:03 WBC RBC Hgb Hct MCV MCH MCHC RDW Plt Count MPV Neut % (Auto) Lymph % (Auto) [place] % (Auto) Eos % (Auto) Baso % (Auto) Absolute Neuts (auto) Absolute Lymphs (auto) Absolute Monos (auto) Absolute Eos (auto) Absolute Basos (auto) Absolute Nucleated RBC Nucleated RBC % Sodium 148 H Potassium 3.8 Chloride 122 H Carbon Dioxide 20 L Anion Gap 6 BUN 27 H Creatinine 0.95 Est GFR ( Amer) 98.2 Est GFR (Non-Af Amer) 81.1 BUN/Creatinine Ratio 28.4 H Glucose 119 H POC Glucose (mg/dL) 158 H Serum Osmolality 320 H Calcium 8.0 L Phosphorus 3.6 Magnesium 1.7 L Total Bilirubin 0.80 AST 60 H ALT 39 Alkaline Phosphatase 101 Total Protein 5.8 L Albumin 2.1 L Globulin 3.7 Albumin/Globulin Ratio 0.6 L Vitamin B12 > 1450 H Folate 15.24 Ur Specific [place] Urine Osmolality U Sodium Concentration 05/13/19 07:54 WBC 19.3 H RBC 2.42 L Hgb 8.1 L Hct 24 L MCV 100 H MCH 34 H MCHC 33 RDW 15 Plt Count 138 L MPV 9.8 Neut % (Auto) 91.0 Lymph % (Auto) 3.3 [place] % (Auto) 4.5 Eos % (Auto) 1.1 Baso % (Auto) 0.1 Absolute Neuts (auto) 17.6 H Absolute Lymphs (auto) 0.6 L Absolute Monos (auto) 0.9 H Absolute Eos (auto) 0.2 Absolute Basos (auto) 0.0 Absolute Nucleated RBC 0.0 Nucleated RBC % 0.1 Sodium Potassium Chloride Carbon Dioxide Anion Gap BUN Creatinine Est GFR ( Amer) Est GFR (Non-Af Amer) BUN/Creatinine Ratio Glucose POC Glucose (mg/dL) Serum Osmolality Calcium Phosphorus Magnesium Total Bilirubin AST ALT Alkaline Phosphatase Total Protein Albumin Globulin Albumin/Globulin Ratio Vitamin B12 Folate Ur Specific [place] Urine Osmolality U Sodium Concentration Studies: CXR: Moderate lt effusion, air space opacity on left Nutrition: TUbe feeds Impression: 59 y o m with polysubstance abuse, on opiods at home, ETOH abuse, abusing multiple street drugs, a/w withdrawal, Acute agitated delirium. Pt also found to have PNA. Pt had complicated course with resp failure requiring intubation with concern for possible aspiration, GIB. Pt continued to remain agitated, unable to tolerate weaning. Bronchoscopy performed at bedside again today showed copius secretions 1. AMS/Acute agitated delirium 2. Polysubstance use, drug withdrawl 3. Resp failure s/p intubation 4. PNA/ Copius secretions 5. Anemia- Macrocytic from cirrhosis 6. GI bleed this admission, H&H stable 7/ H/o Cirrhosis and ascites 8. Elevated LFTs 9. Hypoalbuminemia Plan: Neuro: Acute agitated delirium in setting of polysubstance abuse, ETOH abuse. Has been in ICU since 05/06/19. Gets agitated and reaches for ETT when sedation held. Ammonia slightly elevated, will repeat. Will administer lactulose if no BM in 24 hrs. Will c/w propofol, and fentanyl added for pain. CT brain negative. Will consider EEG if mental status does not improve after lactulose. Likely sepsis and delirium also contributing to mental status changes. Pulm: Resp failure/PNA, was on high flow initially, intubated 05/08. Bronchoscopy performed 05/10, copius secretions, mucus plugs noted, suctioned. Not able to suction secretions through ETT, pt desaturated and became tachypneic while on spontaneous, bronch was performed and large amounts of dark yellow, green secretions were suctioned. Sputum cx showed normal mago. Bronchial washings cx pending. Vent bundle ordered. Pulm toilet. c/w abx. CXR was reviewed, progression of air space opacity on left and left pl effusion noted. Suspect mucus plugging resulting in atelctasis and pl effusion. Pt also in positive fluid balance, ordered Lasix for diuresis. CVS: Tachycardia+, hypertension. Pt with episodes of SVT. c/w metoprolol. ID: Low grade fevers. Leucocytosis persists. Lactate normal, hypotension resolved, not requiring pressors. Tylenol prn. CT chest with PNA in LLL. CT abdomen showed colitis, no other acute issues. Septic w/u negative to date. Haem: Anemia: Had guaic positive stool and GI bleed this admission. No melena. H &H and platelets now stable. Monitor h&H closely. Thrombocytopenia 2/2 cirrhosis. Renal: Hypernatremia, hyperchloremia- Suspect hypervolemic hypernatremia due to loss of free water. Will c/w loop diuretic and correct water deficit with D5W. Will c/w free water through PEG. Zosyn was also d/milli. serum osmolality is elevated, uring osmolarity normal- ? DI. Improving today, will monitor. GI: On tube feeds, normal residuals, abd distended, no BM for 2 days, will administer lactulose. Endo: BS slightly elevated, will c/w SS insulin. Musculosketal: No issues. Skin intact. Will c/w frequent turning and positioning. Psycho/Social: HCPVicky was updated over phone of plan of care. DVTPx: c/w heparin sq as pt is high risk for blood clots. Will monitor for bleeding GI ppx: PPI IV access: Lt IJ, site looks normal without any erythemia. Hilton: Liban Baird catheter in place Pt remains critically ill and requires close ICU monitoring. Pt might be prolonged intubation due to resp issues and mental status and might need tracheostomy and slow weaning. Critical Care Time: 30 min excluding procedure
--- NOTE | 2019-05-13 11:55 | BRIEFOPN ---
Brief Operative/Procedure Note - Operation Details Pre-Op Diagnosis: Thick secretions Post-Op Diagnosis: Copius secretions Procedures: Bronchoscopy Surgeon(s)/Proceduralists: Alla Anesthesia: Pt already on sedation Estimated Blood Loss: None Findings: Copis secretions, thick requiring mucomyst, mucus plugs. Secretions worse on left. Specimen(s)/Culture(s) Description: None Complications: None
[2019-05-13] MEDS: D5W 250 ML BAG* 250 ML IV SCH (14:11)
[2019-05-13] MEDS ORDERED: Albuterol 2.5 MG/3 ML NEB.SOL* (0.083%) INH SCH (19:00)
[2019-05-14] MEDS: Pantoprazole* 80 mg IN NS 80 MG/250 ML BAG IV SCH ×2 (01:14→11:26)
[2019-05-14] MEDS: Chlorhexidine MOUTHWASH 0.12%* 15 ML UDC TOPICAL SCH ×6 (01:50→21:14)
[2019-05-14] MEDS: Albuterol/Ipratropium NEB.SOL* Albuterol 2.5 MG/Ipratropium 0.5 MG 3 ML INH SCH ×2 (01:56→07:33)
[2019-05-14] MEDS ORDERED: Vancomycin Trough Check NOTE FOLLOW UP ONE (05:30)
[2019-05-14 05:56] LABS: ABS Eosinophils 0.1 10^3/ul (0-0.6); ABS Lymphocytes 0.5 10^3/ul (1.0-4.8); ABS Monocytes 0.8 10^3/ul (0-0.8); ABS Neutrophils 18.8 10^3/ul (1.5-7.7); Eosinophil % 0.5 %; Hematocrit 22 % (42-52); Hemoglobin 7.3 g/dL (14.0-18.0); Lymphocyte % 2.7 %; Mean Corpuscular HGB Conc 33 g/dL (31-36); Mean Corpuscular Hemoglobin 33 pg (27-31); Mean Corpuscular Volume 101 fL (80-94); Mean Platelet Volume 10.3 fL (7.4-10.4); Nucleated Red Blood Cells % 0.1; Platelet Count 168 10^3/uL (150-450); Red Blood Count 2.22 10^6 /uL (4.18-5.48); Red Cell Distribution Width 15 % (10-15); White Blood Count 20.3 10^3/uL (3.5-10.8)
[2019-05-14] MEDS: Vancomycin(*) 750 MG in NS 0.9% 250 ML* 250 ML IVPB SCH (06:07)
[2019-05-14] MEDS: Heparin VIAL(*) 5000 UNITS/ML VIAL (FIVE THOUSAND) SUBCUT SCH ×3 (06:09→21:14)
[2019-05-14] MEDS: Norepinephrine 16MCG/ML IVPRE* 4,000 MCG/250 ML BAG IV SCH (06:14)
[2019-05-14 06:16] LABS: Albumin/Globulin Ratio 0.5 (1-3); BUN/Creatinine Ratio 26.1 (8-20); Calcium 7.7 mg/dL (8.6-10.3); EGFR African American 78.8 (>60); EGFR Non-African American 65.1 (>60); Globulin 3.8 g/dL (2-4); Total Bilirubin 0.7 mg/dL (0.2-1.0); Total Protein 5.8 g/dL (6.4-8.9)
[2019-05-14] MEDS: fentaNYL* 50 MCG/ML 2 ML VIAL (100 MCG VIAL) IV SLOW PU PRN ×5 (07:50→21:13)
[2019-05-14] MEDS: Cefepime 1 GM in Dextrose(*) 1 GM/50 ML BAG IV SCH (08:35)
[2019-05-14] MEDS: Folic Acid TAB* 1 MG PO SCH (08:35)
[2019-05-14] MEDS: Multivitamins ADULT w/MIN LIQ* 15 ML UDC PO SCH (08:35)
[2019-05-14] MEDS: Thiamine TAB* 100 MG TAB PO SCH (08:36)
[2019-05-14] MEDS: Dexmedetomidine* 1,000 MCG in NS 0.9% 250 ML* 240 ML IV SCH (09:10)
[2019-05-14] MEDS: D5W 1000 ML BAG* 1,000 ML IV SCH (09:45)
[2019-05-14] MEDS: Acetaminophen ADULT LIQ* 650 MG/20.3 ML UDC PO PRN (10:37)
[2019-05-14] MEDS ORDERED: Sulfamethox/Trimethoprim SUSP* 20 ML UDC PO SCH (12:00)
--- NOTE | 2019-05-14 12:29 | PN ---
Progress Note - Progress Note Date of Service: 05/14/19 Note: Progress Note -- Critical Care 24 hour events/significant events: -intubated - on sedation with precedex 1.2 -on low dose levophed -tmax 100.8 -friend at bedside -he awakens and has started to follow some very simple commands, tries to videographer, closes eyes on command, knodding head -no distress, intermittent tachypnea but no sig vent dyssynchrony ROS: ROS unable to be obtained secondary to intubated/mental status change Tele: NSR Vitals: Vital Signs Temp 100.0 F 05/14/19 12:00 Pulse 86 05/14/19 12:00 Resp 26 05/14/19 11:00 BP 126/73 05/14/19 12:00 Pulse Ox 96 05/14/19 12:00 Intake & Output 05/13/19 05/14/19 05/14/19 18:59 06:59 18:59 Intake Total 2216.5 2067 246 Output Total 535 670 346 Balance 1681.5 1397 -100 Weight 82 kg Intake: IV Fluids 573 993 D5W 404 816 Magnesium sulfate 16 NS (0.9%) 177 Potassium chloride 49 Vanco 37 cefepime 67 IVPB 476 55 Magnesium sulfate 64 Potassium chloride 64 Vanco 291 cefepime 57 55 Medicated IV 290.5 816 146 CC - Propofol/Diprivan 50.7 Levophed 12.7 218 Precedex 24.1 192 Protonix 203 406 146 IV Narcotic Infusion 24 Fentanyl 24 Tube Feeding 277 149 Tube Feeding Flush Amount 600 30 100 Output: Urine 0 Maloney 535 670 346 O2/Vent: PS 10/10 40%; RR 24, TV 400-500 Infusions: Precedex, d5w @50, ppi infusion Medications: Acetaminophen (Tylenol Adult Liq*) 650 mg PO Q6H PRN PRN Reason: MILD PAIN or TEMP > 100.4 Last Admin: 05/14/19 10:37 Dose: 650 mg Albuterol/Ipratropium (Duoneb (Albuterol 2.5 Mg/Ipratropium 0.5 Mg)) 1 neb INH Q4H PRN PRN Reason: SOB/WHEEZING Chlorhexidine Gluconate (Peridex Mouth Wash 0.12%*) 15 ml TOPICAL Q4HR DOLLY Last Admin: 05/14/19 10:37 Dose: 15 ml Fentanyl Citrate (Fentanyl*) 25 mcg IV SLOW PU Q1H PRN PRN Reason: PAIN - SEVERE Last Admin: 05/14/19 09:01 Dose: 25 mcg Folic Acid (Folvite Tab*) 1 mg PO DAILY [facility] Last Admin: 05/14/19 08:35 Dose: 1 mg Heparin Sodium (Porcine) (Heparin Vial(*)) 5,000 units SUBCUT Q8HR [facility] Last Admin: 05/14/19 06:09 Dose: 5,000 units Norepinephrine Bitartrate (Levophed 16 Mcg/Ml Premix*) 4,000 mcg in 250 mls @ 18.75 mls/hr IV .PER PROTOCOL [facility]; Protocol Last Admin: 05/14/19 06:14 Dose: 15 mls/hr Vancomycin HCl 750 mg/ Sodium (Chloride) 250 mls @ 166.667 mls/hr IVPB Q12H [facility] Last Admin: 05/14/19 06:07 Dose: 166.667 mls/hr Cefepime HCl (Maxipime 1 Gm In Dextrose Duplex (*)) 1 gm in 50 mls @ 100 mls/ hr IV Q12H [facility] Last Admin: 05/14/19 08:35 Dose: 100 mls/hr Dexmedetomidine HCl 1,000 mcg/ (Sodium Chloride) 250 mls @ 5.76 mls/hr IV .PER PROTOCOL [facility]; Protocol Last Admin: 05/14/19 09:10 Dose: 23.1 mls/hr Dextrose (D5w 1000 Ml Bag*) 1,000 mls @ 50 mls/hr IV PER RATE [facility] Last Admin: 05/14/19 09:45 Dose: 50 mls/hr Lactulose (Lactulose*) 30 ml NG TUBE BID [facility] Last Admin: 05/14/19 08:35 Dose: 30 ml Lorazepam (Ativan Inj*) 2 mg IV PUSH Q2H PRN PRN Reason: ANXIETY Last Admin: 05/13/19 09:50 Dose: 2 mg Metoprolol Tartrate (Lopressor Iv*) 5 mg IV Q6H PRN PRN Reason: tachycardia HR>130 Last Admin: 05/13/19 10:03 Dose: 5 mg Miscellaneous (Ativan Pyxis Min) 1 ea N/A .ATIVAN IV MIN PRN PRN Reason: PYXIS MIN Multivitamins (Theragran W/Minerals Liq*) 15 ml PO DAILY [facility] Last Admin: 05/14/19 08:35 Dose: 15 ml Pantoprazole Sodium (Protonix Iv*) 40 mg IV BID [facility] Pharmacy Consult (Vancomycin Per Pharmacy*) 1 note FOLLOW UP .VANC PER PHARMACY [facility]; Protocol Pharmacy Profile Note (Vancomycin Trough Check) 1 note FOLLOW UP 0530 ONE Stop: 05/16/19 05:31 Thiamine HCl (Vitamin B-1 Tab*) 100 mg PO DAILY [facility] Last Admin: 05/14/19 08:36 Dose: 100 mg Physical Exam: Constitutional: intubated, on mild sedation but awakens but still sleepy, follows some simple commands at times, no distress, no diaphoresis Head: normocephalic, atraumatic Eyes: no pallor, no icterus ENT: moist mucous membranes Neck: soft, supple, no jvd CVS: normal rate, regular, no murmur Chest/Resp: bilateral air entry, no rhales, no wheeze, no rhonchi, no acc muscle use Abdomen/GI: soft, some tenseness but nontender, nondistended, BS+ Ext/Msk: warm, pulses+, mild UE edema+ Skin: intact, warm Neuro: intubated, awakens, not very alert, but able to follow soem commands slowly; limited exam due to sedation/delirium Psych: unable to assess due to sedation/deliirium Labs: Laboratory Results - last 24 hr 05/13/19 05/13/19 05/14/19 11:50 12:49 05:23 WBC RBC Hgb Hct MCV MCH MCHC RDW Plt Count MPV Neut % (Auto) Lymph % (Auto) [place] % (Auto) Eos % (Auto) Baso % (Auto) Absolute Neuts (auto) Absolute Lymphs (auto) Absolute Monos (auto) Absolute Eos (auto) Absolute Basos (auto) Absolute Nucleated RBC Nucleated RBC % Sodium Potassium Chloride Carbon Dioxide Anion Gap BUN Creatinine Est GFR ( Amer) Est GFR (Non-Af Amer) BUN/Creatinine Ratio Glucose POC Glucose (mg/dL) 171 H 149 H Calcium Total Bilirubin AST ALT Alkaline Phosphatase Ammonia 62 H Total Protein Albumin Globulin Albumin/Globulin Ratio Vancomycin Trough 05/14/19 05/14/19 05/14/19 05:25 05:25 06:18 WBC 20.3 H RBC 2.22 L Hgb 7.3 L Hct 22 L MCV 101 H MCH 33 H MCHC 33 RDW 15 Plt Count 168 MPV 10.3 Neut % (Auto) 92.8 Lymph % (Auto) 2.7 [place] % (Auto) 3.8 Eos % (Auto) 0.5 Baso % (Auto) 0.2 Absolute Neuts (auto) 18.8 H Absolute Lymphs (auto) 0.5 L Absolute Monos (auto) 0.8 Absolute Eos (auto) 0.1 Absolute Basos (auto) 0.0 Absolute Nucleated RBC 0.0 Nucleated RBC % 0.1 Sodium 145 Potassium 4.0 Chloride 120 H Carbon Dioxide 21 L Anion Gap 4 BUN 30 H Creatinine 1.15 Est GFR ( Amer) 78.8 Est GFR (Non-Af Amer) 65.1 BUN/Creatinine Ratio 26.1 H Glucose 112 H POC Glucose (mg/dL) Calcium 7.7 L Total Bilirubin 0.70 AST 58 H ALT 34 Alkaline Phosphatase 120 H Ammonia Total Protein 5.8 L Albumin 2.0 L Globulin 3.8 Albumin/Globulin Ratio 0.5 L Vancomycin Trough 17.4 05/14/19 12:02 WBC RBC Hgb Hct MCV MCH MCHC RDW Plt Count MPV Neut % (Auto) Lymph % (Auto) [place] % (Auto) Eos % (Auto) Baso % (Auto) Absolute Neuts (auto) Absolute Lymphs (auto) Absolute Monos (auto) Absolute Eos (auto) Absolute Basos (auto) Absolute Nucleated RBC Nucleated RBC % Sodium Potassium Chloride Carbon Dioxide Anion Gap BUN Creatinine Est GFR ( Amer) Est GFR (Non-Af Amer) BUN/Creatinine Ratio Glucose POC Glucose (mg/dL) 180 H Calcium Total Bilirubin AST ALT Alkaline Phosphatase Ammonia Total Protein Albumin Globulin Albumin/Globulin Ratio Vancomycin Trough Imaging: cxr 05/12 - left sided opacification of lower half of lung field, ett above [place] CT chest 05/08 - large left lower lobe consolidation+, small effusion+ Assessment: 59y M w/pmhx of polysubstance abuse, opiate use, ETOH abuse, COPD, LUng Cancer s /p right lobectomy; presented to ER 05/05 for cough/sob, hypoxia, left lower lobe pneumonia, started on sepsis protocol, Vapotherm for O2 support. He was noted to have intermittent tachycardia suspected to be SVT/sinus tachy. He was started precedex for withdrawal, opiate vs alcohol. He had a GI bleed 05/07. He was intubated on 05/08 for progressive hypoxia, secretions+. A bronchoscopy was done 05/10 and 05/12 -Severe Sepsis with shock -Delirium -Left lower lobe pneumonia, unspec organism -Acute hypoxic respiratory failure, intubated 05/08 -AC -Alcohol withdrawal -SVT vs sinus tachycardia -GI bleed suspected 05/07 -acute blood loss anemia -thrombocytopenia -Cirrhosis Bronchoscopy 05/10 and 05/12, TLC 3/5 COPD h/o polysubstance abuse Plan: Neuro- -delirium, remains on precedex but some slight improvement it appears today, able to follow some simple commands. does not appear agitated. will titrate down precedex and observe -fever 100.4, multifactorial -has significant drinking history; no clear nystagmus noted on exam; will give thiamine 500mg IV q8h x3 days, then back to 100mg po/iv daily -hyperammonemia 50s, today low 60s; will continue lactulose -Delirium prec; avoid BDZ CVS- -on and off pressors, likely more so from sedation, +/- sepsis -overall gross edema+; trial lasix 40mg IV x1 today -hg stable, no overt bleeding noted past 2-3 days -d5w @ 50cc/hr for hypernatremia, improved -Titrate Pressors to Maintain MAP>65 Resp- -remains intubated on PCV 10/5, 40%; not tachypneic, sats okay -CXR 05/12 with large left effusion -bedside POC US by me demonstrates large left effusion with some exudates and fibrin stranding, unclear if loculated -secretions+ and still [place]all[place]/brown; no growth on sputum yet -noted last bronchoscopy 05/12 with more plugs cleared -can maintain PCV for now, plan for CPAP after thoracentesis today -discussed with friend at bedside, will obtain consent from daughter (HCP) about a thoracentesis later today of left lung -Wean Fio2 to keep sat>92% -Bronchodilators PRN, Aspiration prec, Pulmonary Toilet -VAP bundle ID- tmax 100.6, wbc still elevated 19-20. -sputum culture 05/10 negative -blood cxs neg 05/10, 05/08 -has been on vanco/ctx 05/05-05/07, then vanco/zosyn 05/07-05/11, vanco/cefepime 05/11- current -no clear growth identified; will d/c IV abx and observe off, is there an alternative source? GI- -no further bleeding from GI track noted; d/c ppi infusion; start ppi IV bid instead -hg 7-8s; no sig drop noted -ongoing NGT TF Jevity 1.2 , tolerating -US of abdomen - POC by me showing mild ascites only -hyperammonemia - cont lactulose; no bowel movment noted though; last ammonia level low 60s; will add rifaxamin 550mg bid -GI prophylaxis Renal- -AC; improved, suspect to be from septic ATN initially or volume depletion -making urine -gross edema+; start lasix 40mg iv x1 toda -hypernatremia; improved, on d5w 50cc/hr; will keep at 50 -maloney+ -strict I/O, replete to keep K>4, Mg>2 -maloney as indicated Heme- -anemia, suspect GI loss; has been stable 7-8s; close observation -thrombocytopenia improved Endo-Maintain BG<200, insulin protocol as needed Musculsk- pressure ulcer prophylaxis. Bedrest. Wounds- none Nutrition- NGT Jevity 1.2 DVT prophylaxis: heparin sq GI prophylaxis: ppi Central Line: yes Arterial Line: no Maloney Cathetor: yes Disposition: Patient requires Critical Care/ICU for respiratory failure, encephalopathy, sepsis, suspected alcohol withdrawal state Patient clinical status: guarded Code Status: full code Total Critical Care time is 50 minutes, excluding procedures/teaching Kevin Bonilla MD Steam Hammer Operator (Electronically Signed)
[2019-05-14] MEDS ORDERED: Furosemide IV* 10 MG/ML VIAL (40 MG) IV ONE (12:35)
[2019-05-14] MEDS: RiFAXimin* 550 MG TAB PO SCH ×2 (15:03→21:14)
[2019-05-14] MEDS: Thiamine INJ* 500 MG in NS 0.9% 250 ML* 250 ML IV SCH ×2 (15:03→21:14)
--- NOTE | 2019-05-14 16:11 | OP ---
Operative Report - Blank - Operative Report Date of Operation: 05/14/19 Note: Thoracentesis Procedure Note Indication: large left pleural effusion Diagnosis: acute respiratory failure, pneumonia on left, left pleural effusion Performed by: Dr Melonie Benitez (Resident); supervised by Dr Kevin Bonilla Consent: Informed ; placed in bedside chart Risks and benefits of procedure, including but not limited to hemorrhage, pneumothorax, broncho/pulm fistula, infection were discussed. [place] Protocol: Time-out was performed and the correct patient and site were verified -Previous imaging and lab work (coags/platelets), medications were reviewed. -Full sterile precautions with Chlorhexidine/full drapes/gowns/gloves were utilized. -Ultrasound was used to visualize the appropriate intercostal space for access. -Left 8th intercostal space was marked, SC lidocaine used for local anesthesia. -18 gauge needle was used to enter pleural space, while avoid neuro/vasc bundle. Entry into pleural space confirmed with return of dark brown fluid, and drainage cathetor was passed into space with good return of fluid to check confirmation -Fluid was drained in amount of 1900 cc -No immediate complications or hemodynamic instability during drainage noted -Cathetor was removed after drainage and dressing applied to chest wall site -Specimen/Fluid sent for cell count/cytology/gram stain/culture and other indicated lab analysis Patient tolerated procedure well, no immediate complications noted. EBL - none Post Procedure CXR: Pending Kevin Bonilla MD Route Sales Trainee (Electronically Signed)
--- NOTE | 2019-05-14 16:23 | BRIEFOPN ---
<Melonie Benitez - Last Filed: 05/14/19 16:09> Brief Operative/Procedure Note - Operation Details Pre-Op Diagnosis: Left pleural effusion Post-Op Diagnosis: Left Pleural Effusion Procedures: Left Side Thoracocentesis Surgeon(s)/Proceduralists: Kevin Bonilla MD, Melonie Benitez MD Anesthesia: Local anesthesia Estimated Blood Loss: 1ml Findings: Consent was obtained from patient's sister Vicky over phone, Risks and benefits of procedure, including but not limited to hemorrhage,pneumothorax , broncho/pulm fistula, infection were discussed. Time out performed. Lateral approach was used. Ultrasound was used to guide localization, noted large area of fluid with wavy fibers floating. We identified 7-8th intercostal space and marked it. Entry into pleural space confirmed with return of dark brown fluid, and guidewire was passed into space. Track was dilated and drainage catheter was passed into space with good tidaling observed. Total 1.9L dark brown fluid was aspirated. Sample was sent for fluid rountine analysis, culture, cytology. Catheter was removed at the end. Specimen(s)/Culture(s) Description: Dark brown fluid foamy 1.9L Complications: No complications observed during the procedure, patient was hemodynamically stable. <Kevin Bonilla - Last Filed: 05/14/19 16:51> Brief Operative/Procedure Note - Operation Details Complications: I personally supervised Dr Benitez in performing procedure. NO complications noted. Drainage of 1900+cc of dark fluid from left chest was noted. FOllowup CXR without any PTX, some residual left effusion+ which may also be loculated or some atelectasis/consolidation.
[2019-05-14 16:51] LABS: Body Fluid Source Pleural Fluid
[2019-05-14 17:42] LABS: Body Fluid Band 3 %
[2019-05-14] MEDS: Pantoprazole IV* 40 MG IV SCH (21:14)
--- NOTE | 2019-05-15 00:01 | PRO ---
BRONCHOSCOPY REPORT: DATE OF PROCEDURE: 05/13/19 PREPROCEDURAL DIAGNOSIS: Thick and copious secretions. ANESTHESIA: The patient intubated and on sedation. PROCEDURE IN DETAIL: Informed consent was obtained prior to the procedure from the patient's healthcare proxy after all the risks and benefits were thoroughly explained. The patient was sedated and had ET tube. Disposable bronchoscope was inserted through ET tube. The patient noted to have thick mucus plugs and copious secretions that were hard to suction. Mucomyst was instilled into the left lung base. Secretions were more copious. The Mucomyst helped to loosen the secretions and then could be suctioned out. Bronchoscope was then withdrawn. The patient was seen to be more comfortable on the ventilator postprocedure. [id number]/[facility] #: [id number] MARTHA
--- NOTE | 2019-05-15 02:07 | EEG ---
ELECTROENCEPHALOGRAPHY: DATE OF STUDY: 05/14/19 - ROOM #ICU-06 PATIENT OF: Cassi Sotomayor NP HISTORY: This is a 59-year-old man who presented with acute hypoxic respiratory failure and severe sepsis with history of polysubstance abuse, EtOH abuse. He gets agitated. Administered ET tube when sedation is held. EEG is ordered after lactulose was given and mental status did not improve. MEDICATIONS: Include: 1. Levophed. 2. Pristiq. 3. Lopressor. 4. Ativan. 5. Vancomycin. 6. Heparin. 7. Protonix. 8. Vitamin B. 9. Lactulose. 10. Folvite. 11. Maxipime. 12. Albuterol. INTERPRETATION: With the patient sedated on a respirator, background consists primarily of delta range frequencies with some admixed theta range activity. There are 2 sharply contoured waves that appear at the vertex. This is of unclear significance. This could either be a finding secondary to be in a sleep like state versus epileptiform potential appearing at vertex. No other clearcut epileptiform potentials, focal abnormalities, or major asymmetries of background were noted. IMPRESSION: This EEG is abnormal because of diffuse slowing of background consists with encephalopathy, but not specific as to the etiology. Medications the patient is consuming may contribute to this slowing. There is rare sharp activity appearing at the vertex, which may be secondary to the physiological state that the patient is in, it is possible, but less likely this could represent some tendency towards seizures. [id number]/CPS #: [id number] [facility]
[2019-05-15] MEDS: Chlorhexidine MOUTHWASH 0.12%* 15 ML UDC TOPICAL SCH ×4 (02:59→15:09)
[2019-05-15] MEDS ORDERED: Atropine SYRINGE* 0.1 MG/ML 10 ML SYRINGE (1 MG) ONE (03:21)
[2019-05-15] MEDS: Thiamine INJ* 500 MG in NS 0.9% 250 ML* 250 ML IV SCH ×3 (05:27→21:59)
[2019-05-15] MEDS: Heparin VIAL(*) 5000 UNITS/ML VIAL (FIVE THOUSAND) SUBCUT SCH ×3 (05:28→21:58)
[2019-05-15 05:36] LABS: Hematocrit 25 % (42-52); Hemoglobin 7.9 g/dL (14.0-18.0); Mean Corpuscular HGB Conc 32 g/dL (31-36); Mean Corpuscular Hemoglobin 33 pg (27-31); Mean Corpuscular Volume 102 fL (80-94); Mean Platelet Volume 10.2 fL (7.4-10.4); Platelet Count 232 10^3/uL (150-450); Red Blood Count 2.41 10^6 /uL (4.18-5.48); Red Cell Distribution Width 15 % (10-15); White Blood Count 22.8 10^3/uL (3.5-10.8)
[2019-05-15] MEDS: fentaNYL* 50 MCG/ML 2 ML VIAL (100 MCG VIAL) IV SLOW PU PRN ×6 (05:45→21:58)
[2019-05-15 05:53] LABS: Albumin 2.2 g/dL (3.2-5.2); Albumin/Globulin Ratio 0.5 (1-3); Calcium 7.8 mg/dL (8.6-10.3); EGFR African American 72.9 (>60); EGFR Non-African American 60.2 (>60); Globulin 4.3 g/dL (2-4); Potassium 3.8 mmol/L (3.5-5.0); Total Bilirubin 0.6 mg/dL (0.2-1.0); Total Protein 6.5 g/dL (6.4-8.9)
[2019-05-15 06:13] LABS: BUN/Creatinine Ratio 24.4 (8-20)
[2019-05-15] MEDS: Dexmedetomidine* 1,000 MCG in NS 0.9% 250 ML* 240 ML IV SCH (06:14)
[2019-05-15] MEDS: D5W 1000 ML BAG* 1,000 ML IV SCH (06:19)
[2019-05-15 07:42] LABS: ABS Lymphocytes 0.5 10^3/ul (1.0-4.8); ABS Monocytes 0.9 10^3/ul (0-0.8); ABS Neutrophils 21.4 10^3/ul (1.5-7.7); Eosinophil % 0.2 %; Nucleated Red Blood Cells % 0.1
[2019-05-15] MEDS: Multivitamins ADULT w/MIN LIQ* 15 ML UDC PO SCH (08:10)
[2019-05-15] MEDS: Pantoprazole IV* 40 MG IV SCH ×2 (08:10→20:01)
[2019-05-15] MEDS: Folic Acid TAB* 1 MG PO SCH (08:10)
[2019-05-15] MEDS: RiFAXimin* 550 MG TAB PO SCH ×2 (08:10→20:01)
--- NOTE | 2019-05-15 13:24 | PN ---
Progress Note - Progress Note Date of Service: 05/15/19 Note: Progress Note -- Critical Care 24 hour events/significant events: -intubated -on precedex but awakens now, follows commands -off levophed, on and off at times -tmax 100.4 -friend at bedside -some greenish secretions from ett ROS: ROS unable to be obtained secondary to intubated/mental status change Tele: NSR Vitals: Vital Signs Temp 100.4 F 05/15/19 10:30 Pulse 86 05/15/19 10:30 Resp 29 05/15/19 10:23 BP 127/79 05/15/19 10:30 Pulse Ox 98 05/15/19 10:30 Intake & Output 05/14/19 05/15/19 05/15/19 18:59 06:59 18:59 Intake Total 3060.3 4534 490 Output Total 3040 890 250 Balance 20.3 3644 240 Intake: IV Fluids 532 861 D5W 429 768 Thiamine 93 cefepime 103 IVPB 67 655 Thiamine 655 cefepime 67 Medicated IV 316.3 199 Levophed 41.3 135 Precedex 129 64 Protonix 146 Tube Feeding 445 709 90 Tube Feeding Flush Amount 1700 2110 400 Output: Maloney 1140 890 250 Other 1900 Other: Other Amount Description Thoracentesis O2/Vent: PS 8/5 28%; TV 500-600 Infusions: Precedex, d5w @50 Medications: Acetaminophen (Tylenol Adult Liq*) 650 mg PO Q6H PRN PRN Reason: MILD PAIN or TEMP > 100.4 Last Admin: 05/14/19 10:37 Dose: 650 mg Albuterol/Ipratropium (Duoneb (Albuterol 2.5 Mg/Ipratropium 0.5 Mg)) 1 neb INH Q4H PRN PRN Reason: SOB/WHEEZING Chlorhexidine Gluconate (Peridex Mouth Wash 0.12%*) 15 ml TOPICAL Q4HR [facility] Last Admin: 05/15/19 05:27 Dose: 15 ml Fentanyl Citrate (Fentanyl*) 25 mcg IV SLOW PU Q1H PRN PRN Reason: PAIN - SEVERE Last Admin: 05/15/19 10:23 Dose: 25 mcg Folic Acid (Folvite Tab*) 1 mg PO DAILY [facility] Last Admin: 05/15/19 08:10 Dose: 1 mg Heparin Sodium (Porcine) (Heparin Vial(*)) 5,000 units SUBCUT Q8HR [facility] Last Admin: 05/15/19 05:28 Dose: 5,000 units Norepinephrine Bitartrate (Levophed 16 Mcg/Ml Premix*) 4,000 mcg in 250 mls @ 18.75 mls/hr IV .PER PROTOCOL [facility]; Protocol Last Admin: 05/14/19 06:14 Dose: 15 mls/hr Dexmedetomidine HCl 1,000 mcg/ (Sodium Chloride) 250 mls @ 5.76 mls/hr IV .PER PROTOCOL [facility]; Protocol Last Admin: 05/15/19 06:14 Dose: 21.1 mls/hr Thiamine HCl 500 mg/ Sodium (Chloride) 255 mls @ 255 mls/hr IV Q8H [facility] Stop: 05/17/19 06:59 Last Admin: 05/15/19 05:27 Dose: 255 mls/hr Thiamine HCl 100 mg/ Sodium (Chloride) 51 mls @ 102 mls/hr IV Q24H [facility] Lactulose (Lactulose*) 30 ml NG TUBE TID [facility] Lorazepam (Ativan Inj*) 2 mg IV PUSH Q2H PRN PRN Reason: ANXIETY Last Admin: 05/13/19 09:50 Dose: 2 mg Metoprolol Tartrate (Lopressor Iv*) 5 mg IV Q6H PRN PRN Reason: tachycardia HR>130 Last Admin: 05/13/19 10:03 Dose: 5 mg Miscellaneous (Ativan Pyxis Min) 1 ea N/A .ATIVAN IV MIN PRN PRN Reason: PYXIS MIN Multivitamins (Theragran W/Minerals Liq*) 15 ml PO DAILY [facility] Last Admin: 05/15/19 08:10 Dose: 15 ml Pantoprazole Sodium (Protonix Iv*) 40 mg IV BID [facility] Last Admin: 05/15/19 08:10 Dose: 40 mg Rifaximin (Xifaxan*) 550 mg PO BID [facility] Last Admin: 05/15/19 08:10 Dose: 550 mg Physical Exam: Constitutional: intubated, on precedex, awakens, follows commands, no distress, no diaphoresis Head: normocephalic, atraumatic Eyes: no pallor, no icterus ENT: moist mucous membranes Neck: soft, supple, no jvd CVS: normal rate, regular, no murmur Chest/Resp: bilateral air entry, no rhales, no wheeze, no rhonchi, no acc muscle use Abdomen/GI: soft, nontender, nondistended, BS+ Ext/Msk: warm, pulses+, mild UE edema+ Skin: intact, warm Neuro: intubated, awake, alert, able to follow commands slowly; limited exam due to sedation/delirium Psych: unable to assess due to sedation/deliirium Labs: Imaging: cxr 05/12 - left sided opacification of lower half of lung field, ett above [place] CT chest 05/08 - large left lower lobe consolidation+, small effusion+ Assessment: 59y M w/pmhx of polysubstance abuse, opiate use, ETOH abuse, COPD, LUng Cancer s /p right lobectomy; presented to ER 05/05 for cough/sob, hypoxia, left lower lobe pneumonia, started on sepsis protocol, Vapotherm for O2 support. He was noted to have intermittent tachycardia suspected to be SVT/sinus tachy. He was started precedex for withdrawal, opiate vs alcohol. He had a GI bleed 05/07. He was intubated on 05/08 for progressive hypoxia, secretions+. A bronchoscopy was done 05/10 and 05/12 -Severe Sepsis with shock -Delirium -Left lower lobe pneumonia, unspec organism -Acute hypoxic respiratory failure, intubated 05/08 -AC -Alcohol withdrawal -SVT vs sinus tachycardia -GI bleed suspected 05/07 -acute blood loss anemia -thrombocytopenia -Cirrhosis -left pleural effusion; s/p thoracentesis 05/13 Bronchoscopy 05/10 and 05/12, TLC 3/5 COPD h/o polysubstance abuse Plan: Neuro- -delirium, seems better; more alert and follows commands; suspect this delirium vs withdrawal state is better -on lower precedex -h/o significant drinking ; no clear nystagmus noted on exam; cont day#2 thiamine 500mg IV q8h x3 days, then back to 100mg po/iv daily -hyperammonemia 70s; incr lactulose tid and cont rifaxamin -Delirium prec; avoid BDZ CVS- -on and off pressors, likely more so from sedation, +/- sepsis -overall gross edema+; good urine output, will give lasix 20mg IV x1 dose only -hg stable, no overt bleeding -d/c d5w -Titrate Pressors to Maintain MAP>65 Resp- -remains intubated ; we placed patient on CPAP this morning, doing well, weaned from 15/5 to 8/5, doing well -CXR 05/14 - ett above [place]; left sided consolidation+, left small effusion and improved -left thoracentesis 05/13 with 1900+ out; pending culture and chemistry; noted WBC ++; suspect this to be exudative but parapneumonic -secretions+ and still caballero/brown; send repeat sputum today -plan for extubation if weaning parameters -will need chest PT and mucomyst -bronchoscopy 05/12 with more plugs cleared -Wean Fio2 to keep sat>92% -Bronchodilators PRN, Aspiration prec, Pulmonary Toilet -VAP bundle ID- tmax 100.4, wbc 19-20-23 -sputum culture 05/10 negative; send repeat -blood cxs neg 05/10, 05/08 -left pleural fluid with neutrophils but no bacteria on stain; pending culture -left pleural fluid appears exudative but pending chemistries (send out); may be parapneumonic -CXR 05/14 - left smalll effusion but still consolidation+ -has been on vanco/ctx 05/05-05/07, then vanco/zosyn 05/07-05/11, vanco/cefepime 05/11, d/ c'ed 05/13 -hold off abx, pending repeat cultures as needed GI- -no further bleeding from GI ; cont ppi IV bid -hg 7-8s; no sig drop noted -ongoing NGT TF Jevity 1.2 , tolerating; dec free water to 200cc q6h -US of abdomen - POC by me showing mild ascites only -hyperammonemia - cont lactulose tid and rifaxamin -GI prophylaxis Renal- -AC; Cr incr to 1.2 today; s/p lasix 40mg yesterday; suspect to be from septic ATN initially or volume depletion earlier -repeat lasix 20mg iv x1 today -making urine -gross edema+; likely thirdspaced ; will redose lasix 20mg IV x1 -hypernatremia; improved; d/c d5w -maloney+ -strict I/O, replete to keep K>4, Mg>2 -maloney as indicated Heme- -anemia, suspect GI loss; has been stable 7-8s; close observation -thrombocytopenia improved Endo-Maintain BG<200, insulin protocol as needed Musculsk- pressure ulcer prophylaxis. Bedrest. Wounds- none Nutrition- NGT Jevity 1.2 DVT prophylaxis: heparin sq GI prophylaxis: ppi Central Line: yes Arterial Line: no Maloney Cathetor: yes Disposition: Patient requires Critical Care/ICU for respiratory failure, encephalopathy, sepsis, suspected alcohol withdrawal state Patient clinical status: guarded Code Status: full code Total Critical Care time is 45 minutes, excluding procedures/teaching Kevin Bonilla MD [employer] Operator Helper (Electronically Signed)
[2019-05-15] MEDS ORDERED: Furosemide IV* 10 MG/ML 2 ML VIAL (20 MG) IV ONE (13:42)
[2019-05-15] MEDS: Albuterol/Ipratropium NEB.SOL* Albuterol 2.5 MG/Ipratropium 0.5 MG 3 ML INH PRN ×2 (17:23→22:29)
[2019-05-15] MEDS: Acetylcysteine INHALATION SOL* 200 MG/ML NEB.SOLN 10 ML INH PRN ×2 (17:23→22:29)
[2019-05-16] MEDS: fentaNYL* 50 MCG/ML 2 ML VIAL (100 MCG VIAL) IV SLOW PU PRN ×5 (00:03→15:42)
[2019-05-16] MEDS: LORazepam INJ* 2 MG/ML 1 ML VIAL IV PUSH PRN ×2 (02:10→18:37)
[2019-05-16 04:11] LABS: Hematocrit 23 % (42-52); Hemoglobin 7.5 g/dL (14.0-18.0); Mean Corpuscular HGB Conc 33 g/dL (31-36); Mean Corpuscular Hemoglobin 33 pg (27-31); Mean Corpuscular Volume 100 fL (80-94); Mean Platelet Volume 10.2 fL (7.4-10.4); Platelet Count 283 10^3/uL (150-450); Red Cell Distribution Width 14 % (10-15); White Blood Count 21.5 10^3/uL (3.5-10.8)
[2019-05-16 04:24] LABS: Calcium 8.1 mg/dL (8.6-10.3); Magnesium 1.6 mg/dL (1.9-2.7); Potassium 3.4 mmol/L (3.5-5.0)
[2019-05-16 04:30] LABS: BUN/Creatinine Ratio 23.5 (8-20); EGFR African American 75.7 (>60); EGFR Non-African American 62.6 (>60)
[2019-05-16 05:02] LABS: Vancomycin Trough 9.3 mcg/mL
[2019-05-16] MEDS ORDERED: Vancomycin Trough Check NOTE FOLLOW UP ONE (05:30)
[2019-05-16] MEDS: Acetylcysteine INHALATION SOL* 200 MG/ML NEB.SOLN 10 ML INH PRN ×2 (05:45→20:01)
[2019-05-16] MEDS: Albuterol/Ipratropium NEB.SOL* Albuterol 2.5 MG/Ipratropium 0.5 MG 3 ML INH PRN ×3 (05:45→20:00)
[2019-05-16] MEDS: Heparin VIAL(*) 5000 UNITS/ML VIAL (FIVE THOUSAND) SUBCUT SCH ×3 (05:49→21:12)
[2019-05-16] MEDS: Thiamine INJ* 500 MG in NS 0.9% 250 ML* 250 ML IV SCH ×3 (05:58→21:12)
[2019-05-16] MEDS: Folic Acid TAB* 1 MG PO SCH (08:53)
[2019-05-16] MEDS: RiFAXimin* 550 MG TAB PO SCH ×2 (08:53→20:57)
[2019-05-16] MEDS: Multivitamins ADULT w/MIN LIQ* 15 ML UDC PO SCH (08:54)
[2019-05-16] MEDS: Pantoprazole IV* 40 MG IV SCH (08:57)
[2019-05-16 11:47] LABS: Fluid Type, Glucose PLEURAL
[2019-05-16 11:51] LABS: Fluid Type, Protein, Total PLEURAL
[2019-05-16] MEDS ORDERED: Furosemide IV* 10 MG/ML 2 ML VIAL (20 MG) IV ONE ×3 (12:39→17:19)
[2019-05-16] MEDS ORDERED: Magnesium Sulfate 2 GM IV* 2 GM/50 ML BAG IVPB ONE (14:08)
[2019-05-16] MEDS ORDERED: Potassium Chloride* LIQUID 20 MEQ/15 ML UDC PO ONE (14:08)
--- NOTE | 2019-05-16 14:15 | PN ---
Progress Note - Progress Note Date of Service: 05/16/19 Note: Progress Note -- Critical Care 24 hour events/significant events: -extubated yesterday, awake, alert -some tachypnea+, off NC, sats 90s, RR 30s; scattered rhales on exam -tmax 100; HR 100s, BP stable 150s -good urie output with lasix noted ROS: ROS unable to be obtained secondary to intubated/mental status change Tele: NSR Vitals: Vital Signs Temp 100.0 F 05/16/19 12:45 Pulse 110 05/16/19 12:45 Resp 30 05/16/19 13:09 BP 155/87 05/16/19 12:00 Pulse Ox 99 05/16/19 12:45 Intake & Output 05/15/19 05/16/19 05/16/19 18:59 06:59 18:59 Intake Total 1092 2261 Output Total 1830 1495 300 Balance -738 766 -300 Weight 82.599 kg Intake: IV Fluids 452 522 D5W 452 418 Thiamine 104 IVPB 779 Thiamine 779 Medicated IV 150 Levophed 18 Precedex 132 Oral 960 Tube Feeding 90 Tube Feeding Flush Amount 400 Output: Maloney 1380 895 300 Liquid Stool 450 600 Other: Date of Last Bowel 05/15/2019 Movement # Bowel Movements 3 Estimated Stool Amount Large O2/Vent: RA Infusions: heplock Medications: Acetaminophen (Tylenol Adult Liq*) 650 mg PO Q6H PRN PRN Reason: MILD PAIN or TEMP > 100.4 Last Admin: 05/14/19 10:37 Dose: 650 mg Acetylcysteine (Mucomyst Inhalation Christie*) 400 mg INH I4US-NSANN AWAKE PRN PRN Reason: CONGESTION Last Admin: 05/16/19 05:45 Dose: 400 mg Albuterol/Ipratropium (Duoneb (Albuterol 2.5 Mg/Ipratropium 0.5 Mg)) 1 neb INH Q4H PRN PRN Reason: SOB/WHEEZING Last Admin: 05/16/19 05:45 Dose: 1 neb Fentanyl Citrate (Fentanyl*) 25 mcg IV SLOW PU Q1H PRN PRN Reason: PAIN - SEVERE Last Admin: 05/16/19 13:09 Dose: 25 mcg Folic Acid (Folvite Tab*) 1 mg PO DAILY [facility] Last Admin: 05/16/19 08:53 Dose: 1 mg Heparin Sodium (Porcine) (Heparin Vial(*)) 5,000 units SUBCUT Q8HR [facility] Last Admin: 05/16/19 05:49 Dose: 5,000 units Thiamine HCl 500 mg/ Sodium (Chloride) 255 mls @ 255 mls/hr IV Q8H [facility] Stop: 05/17/19 06:59 Last Admin: 05/16/19 05:58 Dose: 255 mls/hr Thiamine HCl 100 mg/ Sodium (Chloride) 51 mls @ 102 mls/hr IV Q24H [facility] Magnesium Sulfate (Magnesium Sulfate 2 Gm Iv*) 2 gm in 50 mls @ 50 mls/hr IVPB ONCE ONE Stop: 05/16/19 15:07 Lactulose (Lactulose*) 30 ml NG TUBE TID [facility] Last Admin: 05/16/19 08:54 Dose: 30 ml Metoprolol Tartrate (Lopressor Iv*) 5 mg IV Q6H PRN PRN Reason: tachycardia HR>130 Last Admin: 05/13/19 10:03 Dose: 5 mg Miscellaneous (Ativan Pyxis Min) 1 ea N/A .ATIVAN IV MIN PRN PRN Reason: PYXIS MIN Multivitamins (Theragran W/Minerals Liq*) 15 ml PO DAILY [facility] Last Admin: 05/16/19 08:54 Dose: 15 ml Pantoprazole Sodium (Protonix Iv*) 40 mg IV BID [facility] Last Admin: 05/16/19 08:57 Dose: 40 mg Rifaximin (Xifaxan*) 550 mg PO BID [facility] Last Admin: 05/16/19 08:53 Dose: 550 mg Physical Exam: Constitutional: awake, alert, mild distress/tachypnea+, follows commands, no diaphoresis Head: normocephalic, atraumatic Eyes: no pallor, no icterus ENT: moist mucous membranes Neck: soft, supple, no jvd CVS: normal rate, regular, no murmur Chest/Resp: bilateral air entry, bilateral rhales+, no wheeze, no rhonchi, no acc muscle use Abdomen/GI: soft, nontender, nondistended, BS+ Ext/Msk: warm, pulses+, mild UE edema+ Skin: intact, warm Neuro: awake, alert, follows commands , moves all ext equally, no focal deficit Psych: normal affect Labs: Laboratory Results - last 24 hr 05/14/19 05/14/19 05/14/19 15:47 15:47 15:47 WBC RBC Hgb Hct MCV MCH MCHC RDW Plt Count MPV Sodium Potassium Chloride Carbon Dioxide Anion Gap BUN Creatinine Est GFR ( Amer) Est GFR (Non-Af Amer) BUN/Creatinine Ratio Glucose POC Glucose (mg/dL) Calcium Phosphorus Magnesium Procalcitonin Fluid Source Pleural Pleural Pleural Fluid Glucose 29 Fluid Total Protein 3.1 Fluid LDH 3855 Vancomycin Trough 05/14/19 05/15/19 05/15/19 17:29 00:24 06:21 WBC RBC Hgb Hct MCV MCH MCHC RDW Plt Count MPV Sodium Potassium Chloride Carbon Dioxide Anion Gap BUN Creatinine Est GFR ( Amer) Est GFR (Non-Af Amer) BUN/Creatinine Ratio Glucose POC Glucose (mg/dL) 135 H 148 H Calcium Phosphorus Magnesium Procalcitonin 0.52 H Fluid Source Fluid Glucose Fluid Total Protein Fluid LDH Vancomycin Trough 05/15/19 05/16/19 05/16/19 13:38 04:00 04:00 WBC 21.5 H RBC 2.30 L Hgb 7.5 L Hct 23 L MCV 100 H MCH 33 H MCHC 33 RDW 14 Plt Count 283 MPV 10.2 Sodium 137 Potassium 3.4 L Chloride 113 H Carbon Dioxide 18 L Anion Gap 6 BUN 28 H Creatinine 1.19 H Est GFR ( Amer) 75.7 Est GFR (Non-Af Amer) 62.6 BUN/Creatinine Ratio 23.5 H Glucose 89 POC Glucose (mg/dL) 125 H Calcium 8.1 L Phosphorus 3.0 Magnesium 1.6 L Procalcitonin Fluid Source Fluid Glucose Fluid Total Protein Fluid LDH Vancomycin Trough 9.3 Imaging: cxr 05/12 - left sided opacification of lower half of lung field, ett above [place] CT chest 05/08 - large left lower lobe consolidation+, small effusion+ cxr 05/15 - left consolidation+, left effusion+ small Assessment: 59y M w/pmhx of polysubstance abuse, opiate use, ETOH abuse, COPD, LUng Cancer s /p right lobectomy; presented to ER 05/05 for cough/sob, hypoxia, left lower lobe pneumonia, started on sepsis protocol, Vapotherm for O2 support. He was noted to have intermittent tachycardia suspected to be SVT/sinus tachy. He was started precedex for withdrawal, opiate vs alcohol. He had a GI bleed 05/07. He was intubated on 05/08 for progressive hypoxia, secretions+. A bronchoscopy was done 05/10 and 05/12 -Severe Sepsis with shock; improved -Delirium -Left lower lobe pneumonia, unspec organism -Acute hypoxic respiratory failure, intubated 05/08 -AC -Alcohol withdrawal -SVT vs sinus tachycardia -GI bleed suspected 05/07 -acute blood loss anemia -thrombocytopenia -Cirrhosis -left pleural effusion, exudative in nature; s/p thoracentesis 05/13 Bronchoscopy 05/10 and 05/12, TLC 3/5 COPD h/o polysubstance abuse Plan: Neuro- -delirium, resolved; no precedex required -alert -h/o significant drinking ; cont day#3 thiamine 500mg IV q8h x3 days, then back to 100mg po/iv daily tomorrow -hyperammonemia 70s, check level tomorrow; cont lactulose tid and cont rifaxamin -Delirium prec; avoid BDZ CVS- -off pressors; BP stable, HR stable but 100s -restart metoprolol 25mg po bid -overall gross edema+; good urine output; start lasix 20mg iv daily -hg stable, no overt bleeding -Titrate Pressors to Maintain MAP>65 Resp- -on RA now; rhales+ -CXR with no clear congestion noted; left sided consolidation and small effusion -reviewed new findings of pleural fluid; has findings consistent with exudative fluid; no growth yet on fluid -re-eval if growing fluid may need chest tube if becomes septic again -left thoracentesis 05/13 with 1900+ out -chest PT; nebulizers, mucomyst; oob of bed, encourage incentive spirometry; supplemental o2 as needed -bronchoscopy 05/12 with more plugs cleared -Wean Fio2 to keep sat>92% -Bronchodilators PRN, Aspiration prec, Pulmonary Toilet ID- tmax 100, wbc 19-20-23-21, stable buy nontoxic appearing -sputum culture 05/10 negative; send repeat -blood cxs neg 05/10, 05/08 -left pleural fluid with neutrophils but no bacteria on stain; pending culture -left pleural fluid appears exudative -CXR 05/15 - left cosnol with effusion+ -has been on vanco/ctx 05/05-05/07, then vanco/zosyn 05/07-05/11, vanco/cefepime 05/11, d/ c'ed 05/13 -hold off abx, pending repeat cultures as needed GI- -no further bleeding from GI ; cont ppi bid -hg 7-8s; no sig drop noted -started regular po diet -US of abdomen - POC by me showing mild ascites only -hyperammonemia - cont lactulose tid and rifaxamin; diarrhea+, re-eval tomorrow -GI prophylaxis Renal- -AC; Cr stable 1.1; good urine output -replete K and Mg -gross edema+; lasix 20mg IV daily -hypernatremia; improved -maloney+ -strict I/O, replete to keep K>4, Mg>2 -maloney as indicated Heme- -anemia, suspect GI loss; has been stable 7-8s; close observation -thrombocytopenia improved Endo-Maintain BG<200, insulin protocol as needed Musculsk- pressure ulcer prophylaxis. Bedrest. Wounds- none Nutrition- NGT Jevity 1.2 DVT prophylaxis: heparin sq GI prophylaxis: ppi Central Line: yes Arterial Line: no Maloney Cathetor: yes Disposition: Patient requires Critical Care/ICU for respiratory failure, encephalopathy, sepsis Patient clinical status: guarded Code Status: full code Total Critical Care time is 40 minutes, excluding procedures/teaching Kevin Bonilla MD Net Coordinator (Electronically Signed)
[2019-05-16 14:17] LABS: Lactate Dehydrogenase, BF 3855 U/L
[2019-05-16] MEDS ORDERED: Metoprolol Tartrate TAB* 25 MG PO SCH (15:00)
[2019-05-16] MEDS: Acetaminophen ADULT LIQ* 650 MG/20.3 ML UDC PO PRN (17:09)
[2019-05-16] MEDS ORDERED: Furosemide IV* 10 MG/ML VIAL (40 MG) IV ONE (17:33)
[2019-05-16] MEDS ORDERED: Metoprolol Succinate XL TAB* 100 MG PO SCH (18:00)
[2019-05-16] MEDS ORDERED: Lorazepam PYXIS KEY PRN (18:26)
[2019-05-16] MEDS ORDERED: Haloperidol INJ IV/IM* 5 MG/ML AMP IV SLOW PU ONE (20:04)
[2019-05-16] MEDS: LORazepam TAB(*) 1 MG PO SCH (20:44)
[2019-05-16] MEDS: Metoprolol Tartrate TAB* 25 MG PO SCH (20:56)
[2019-05-16] MEDS: Pantoprazole TAB * 40 MG TAB PO SCH (20:57)
[2019-05-16] MEDS: Morphine INJ* 4 MG/ML 1 ML SYRINGE (NEW SYRINGE VERSION) IV PRN (22:13)
[2019-05-17 04:52] LABS: Hematocrit 24 % (42-52); Hemoglobin 7.9 g/dL (14.0-18.0); Mean Corpuscular HGB Conc 33 g/dL (31-36); Mean Corpuscular Hemoglobin 33 pg (27-31); Mean Corpuscular Volume 101 fL (80-94); Mean Platelet Volume 9.7 fL (7.4-10.4); Platelet Count 376 10^3/uL (150-450); Red Cell Distribution Width 14 % (10-15); White Blood Count 21.4 10^3/uL (3.5-10.8)
[2019-05-17 05:09] LABS: BUN/Creatinine Ratio 23.6 (8-20); Calcium 8.2 mg/dL (8.6-10.3); EGFR African American 70.2 (>60); Magnesium 1.8 mg/dL (1.9-2.7); Phosphorus 3.5 mg/dL (2.5-5.0); Potassium 3.4 mmol/L (3.5-5.0)
[2019-05-17] MEDS: Thiamine INJ* 500 MG in NS 0.9% 250 ML* 250 ML IV SCH (05:44)
[2019-05-17] MEDS: Heparin VIAL(*) 5000 UNITS/ML VIAL (FIVE THOUSAND) SUBCUT SCH ×3 (05:44→22:01)
[2019-05-17] MEDS: Metoprolol Tartrate TAB* 25 MG PO SCH ×2 (08:48→20:00)
[2019-05-17] MEDS ORDERED: KCL 10 MEQ/50 ML IVPREMIX* 10 MEQ/50 ML BAG IV ONE (08:49)
[2019-05-17] MEDS: oxyCODONE TAB* 5 MG TAB PO PRN ×3 (08:49→20:00)
[2019-05-17] MEDS ORDERED: Magnesium Sulfate 2 GM IV* 2 GM/50 ML BAG IVPB ONE (08:49)
[2019-05-17] MEDS: Pantoprazole TAB * 40 MG TAB PO SCH ×2 (08:50→20:00)
[2019-05-17] MEDS: Folic Acid TAB* 1 MG PO SCH (08:50)
[2019-05-17] MEDS: LORazepam TAB(*) 1 MG PO SCH (08:51)
[2019-05-17] MEDS: Multivitamins ADULT w/MIN LIQ* 15 ML UDC PO SCH (08:51)
[2019-05-17] MEDS: RiFAXimin* 550 MG TAB PO SCH ×2 (08:51→20:00)
[2019-05-17] MEDS ORDERED: Furosemide IV* 10 MG/ML 2 ML VIAL (20 MG) IV ONE ×2 (09:00→11:32)
[2019-05-17] MEDS ORDERED: Hydrochlorothiazide TAB* 25 MG PO SCH (09:00)
[2019-05-17] MEDS ORDERED: Potassium Chloride* LIQUID 20 MEQ/15 ML UDC PO ONE (11:28)
--- NOTE | 2019-05-17 11:42 | PN ---
Progress Note - Progress Note Date of Service: 05/17/19 Note: Progress Note -- Critical Care 24 hour events/significant events: -awake, alert -was having resp distress yesterday, trialed HFNC but then NIV, was more confused yesterday also. given haldol x1. -this morning better on HFNC, transitioned to NC. feels better, more lucid and comfortable. friend at bedside -afebrile, BP and HR stable. -cough+, productive; was given nebs yesterday -bedside POC US by me and showing left pleural effusion recurrence again ROS: negative except for pertinent positives mentioned above Tele: NSR Vitals: Vital Signs Temp 98.6 F 05/17/19 11:00 Pulse 82 05/17/19 11:00 Resp 15 05/17/19 11:00 BP 147/89 05/17/19 11:00 Pulse Ox 100 05/17/19 11:00 Intake & Output 05/16/19 05/17/19 05/17/19 18:59 06:59 18:59 Intake Total 305 1386 Output Total 775 1840 590 Balance -470 -454 -590 Weight 84 kg Intake: IV Fluids 50 237 Magnesium sulfate 50 NS (0.9%) 237 IVPB 255 749 Magnesium sulfate 42 Thiamine 255 707 Oral 400 Output: Urine 30 Maloney 645 940 590 Liquid Stool 100 900 Other: Date of Last Bowel t Movement O2/Vent: HFNC -> salter NC Infusions: heplock Medications: Acetaminophen (Tylenol Adult Liq*) 650 mg PO Q6H PRN PRN Reason: MILD PAIN or TEMP > 100.4 Last Admin: 05/16/19 17:09 Dose: 650 mg Acetylcysteine (Mucomyst Inhalation Christie*) 400 mg INH [id number] AWAKE PRN PRN Reason: CONGESTION Last Admin: 05/16/19 20:01 Dose: 400 mg Albuterol/Ipratropium (Duoneb (Albuterol 2.5 Mg/Ipratropium 0.5 Mg)) 1 neb INH Q4H PRN PRN Reason: SOB/WHEEZING Last Admin: 05/16/19 20:00 Dose: 1 neb Fentanyl Citrate (Fentanyl*) 25 mcg IV SLOW PU Q1H PRN PRN Reason: PAIN - SEVERE Last Admin: 05/16/19 15:42 Dose: 25 mcg Folic Acid (Folvite Tab*) 1 mg PO DAILY [facility] Last Admin: 05/17/19 08:50 Dose: 1 mg Heparin Sodium (Porcine) (Heparin Vial(*)) 5,000 units SUBCUT Q8HR [facility] Last Admin: 05/17/19 05:44 Dose: 5,000 units Hydrochlorothiazide (Hydrodiuril Tab*) 12.5 mg PO QAM [facility] Last Admin: 05/17/19 08:51 Dose: 12.5 mg Thiamine HCl 100 mg/ Sodium (Chloride) 51 mls @ 102 mls/hr IV Q24H [facility] Lactulose (Lactulose*) 30 ml NG TUBE TID [facility] Last Admin: 05/17/19 08:51 Dose: 30 ml Lorazepam (Ativan Inj*) 1 mg IV PUSH Q8H PRN PRN Reason: ANXIETY Last Admin: 05/16/19 18:37 Dose: 1 mg Lorazepam (Ativan Tab(*)) 1 mg PO Q12H [facility] Last Admin: 05/17/19 08:51 Dose: Not Given Metoprolol Tartrate (Lopressor Iv*) 5 mg IV Q6H PRN PRN Reason: tachycardia HR>130 Last Admin: 05/13/19 10:03 Dose: 5 mg Metoprolol Tartrate (Lopressor Tab*) 50 mg PO BID [facility] Last Admin: 05/17/19 08:48 Dose: 50 mg Miscellaneous (Ativan Pyxis Min) 1 ea N/A .ATIVAN IV MIN PRN PRN Reason: PYXIS MIN Morphine Sulfate (Morphine Inj (Syringe)*) 2 mg IV Q4H PRN PRN Reason: PAIN - SEVERE Last Admin: 05/16/19 22:13 Dose: 2 mg Multivitamins (Theragran W/Minerals Liq*) 15 ml PO DAILY [facility] Last Admin: 05/17/19 08:51 Dose: 15 ml Oxycodone HCl (Roxycodone Tab*) 5 mg PO Q4H PRN PRN Reason: PAIN - SEVERE Last Admin: 05/17/19 08:49 Dose: 5 mg Pantoprazole Sodium (Protonix Tab*) 40 mg PO BID [facility] Last Admin: 05/17/19 08:50 Dose: 40 mg Potassium Chloride (Potassium Chloride Liquid) 20 meq PO ONCE ONE Stop: 03/12/20 11:29 Quetiapine Fumarate (Seroquel Tab*) 25 mg PO BEDTIME [facility] Rifaximin (Xifaxan*) 550 mg PO BID [facility] Last Admin: 05/17/19 08:51 Dose: 550 mg Physical Exam: Constitutional: awake, alert, no distress, follows commands, no diaphoresis Head: normocephalic, atraumatic Eyes: no pallor, no icterus ENT: moist mucous membranes Neck: soft, supple, no jvd CVS: normal rate, regular, no murmur Chest/Resp: bilateral air entry, bilateral rhales+, no wheeze, no rhonchi, no acc muscle use Abdomen/GI: soft, nontender, nondistended, BS+ Ext/Msk: warm, pulses+, mild UE edema+ but improving Skin: intact, warm Neuro: awake, alert, follows commands , moves all ext equally, no focal deficit Psych: normal affect Labs: Laboratory Results - last 24 hr 05/14/19 05/14/19 05/14/19 15:47 15:47 15:47 WBC RBC Hgb Hct MCV MCH MCHC RDW Plt Count MPV Sodium Potassium Chloride Carbon Dioxide Anion Gap BUN Creatinine Est GFR ( Amer) Est GFR (Non-Af Amer) BUN/Creatinine Ratio Glucose Calcium Phosphorus Magnesium Ammonia Procalcitonin Fluid Source Pleural Pleural Pleural Fluid Glucose 29 Fluid Total Protein 3.1 Fluid LDH 3855 05/14/19 05/17/19 05/17/19 17:29 04:30 04:30 WBC RBC Hgb Hct MCV MCH MCHC RDW Plt Count MPV Sodium 141 Potassium 3.4 L Chloride 116 H Carbon Dioxide 20 L Anion Gap 5 BUN 30 H Creatinine 1.27 H Est GFR ( Amer) 70.2 Est GFR (Non-Af Amer) 58.0 BUN/Creatinine Ratio 23.6 H Glucose 95 Calcium 8.2 L Phosphorus 3.5 Magnesium 1.8 L Ammonia 57 H Procalcitonin 0.52 H Fluid Source Fluid Glucose Fluid Total Protein Fluid LDH 05/17/19 04:30 WBC 21.4 H RBC 2.40 L Hgb 7.9 L Hct 24 L MCV 101 H MCH 33 H MCHC 33 RDW 14 Plt Count 376 MPV 9.7 Sodium Potassium Chloride Carbon Dioxide Anion Gap BUN Creatinine Est GFR ( Amer) Est GFR (Non-Af Amer) BUN/Creatinine Ratio Glucose Calcium Phosphorus Magnesium Ammonia Procalcitonin Fluid Source Fluid Glucose Fluid Total Protein Fluid LDH Imaging: cxr 05/12 - left sided opacification of lower half of lung field, ett above [place] CT chest 05/08 - large left lower lobe consolidation+, small effusion+ cxr 05/15 - left consolidation+, left effusion+ small cxr 05/16 - left sided effusion/consolidation+ Assessment: 59y M w/pmhx of polysubstance abuse, opiate use, ETOH abuse, COPD, LUng Cancer s /p right lobectomy; presented to ER 05/05 for cough/sob, hypoxia, left lower lobe pneumonia, started on sepsis protocol, Vapotherm for O2 support. He was noted to have intermittent tachycardia suspected to be SVT/sinus tachy. He was started precedex for withdrawal, opiate vs alcohol. He had a GI bleed 05/07. He was intubated on 05/08 for progressive hypoxia, secretions+. A bronchoscopy was done 05/10 and 05/12 -Severe Sepsis with shock; improved -Delirium -Left lower lobe pneumonia, unspec organism -Acute hypoxic respiratory failure, intubated 05/08 -AC -Alcohol withdrawal -SVT vs sinus tachycardia -GI bleed suspected - 05/07 -acute blood loss anemia -thrombocytopenia -Cirrhosis -left pleural effusion, exudative in nature; s/p thoracentesis 05/13 -delirium Bronchoscopy 05/10 and 05/12, TLC 3/5 COPD h/o polysubstance abuse Plan: Neuro- -delirium, intermittent, yesterday evening; will start seroquel 25mg po in evenings -alert, oriented now -h/o significant drinking ; cont thiamine 100mg po daily; dec ativan 0.5mg po bid, PRN also IV -PRN oxycodone for pain -hyperammonemia 50s; better mental status, cont lactulose tid and cont rifaxamin -Delirium prec CVS- -BP stable, HR stable ; cont metoprolol 50mg bid -overall gross edema+; good urine output; start lasix 20mg iv daily -hg stable, no overt bleeding -Maintain MAP>65 Resp- -was on HFNC, now on NC; rhales+ -CXR 05/16 - increased left effusion, consol? -BEdside POC with enlarging effusion again -will obtain formal US; consulted IR for possible CT given i see adhesions -has exudative effusion, culture negative; will benefit from Chest tube for continued drainage -left thoracentesis 05/13 with 1900+ out -chest PT; nebulizers, mucomyst; oob of bed, encourage incentive spirometry; supplemental o2 as needed -bronchoscopy 05/12 with more plugs cleared -Wean Fio2 to keep sat>92% -Bronchodilators PRN, Aspiration prec, Pulmonary Toilet ID- afebrile, wbc [id number], stable , nontoxic appearing -sputum culture 05/10 negative; yeast only -blood cxs neg 05/10, 05/08 -left pleural fluid with neutrophils, low glucose, exudative; but no bacteria on stain; so far neg growth -CXR 05/16 - left cosnol with effusion+ -has been on vanco/ctx 05/05-05/07, then vanco/zosyn 05/07-05/11, vanco/cefepime 05/11, d/ c'ed 05/13 -off abx, stable for now GI- -no further bleeding from GI ; cont ppi bid -hg 7-8s; no sig drop noted -regular po diet -US of abdomen - POC by me showing mild ascites only -hyperammonemia - cont lactulose tid and rifaxamin; diarrhea+ -GI prophylaxis Renal- -AC; Cr stable 1.2; good urine output -replete K and Mg IV and PO today -gross edema+; good urine output; cont lasix 20mg IV daily -hypernatremia; improved -maloney+ -strict I/O, replete to keep K>4, Mg>2 -maloney as indicated Heme- -anemia, suspect GI loss; has been stable 7-8s; close observation -thrombocytopenia improved Endo-Maintain BG<200, insulin protocol as needed Musculsk- pressure ulcer prophylaxis. oob to chair Wounds- none Nutrition- regular po diet DVT prophylaxis: heparin sq GI prophylaxis: ppi Central Line: yes Arterial Line: no Maloney Cathetor: yes Disposition: Patient requires Critical Care/ICU for respiratory failure, encephalopathy, sepsis Patient clinical status: guarded Code Status: full code Total Critical Care time is 40 minutes, excluding procedures/teaching Kevin Bonilla MD Logistics Assistant (Electronically Signed)
[2019-05-17] MEDS: Thiamine INJ* 100 MG in NS 0.9% 50 ML* 50 ML IV SCH (12:36)
[2019-05-17] MEDS: LORazepam TAB(*) 0.5 MG PO SCH ×2 (13:57→20:01)
[2019-05-17] MEDS: QUEtiapine TAB* 25 MG PO SCH (20:00)
[2019-05-17] MEDS: Albuterol/Ipratropium NEB.SOL* Albuterol 2.5 MG/Ipratropium 0.5 MG 3 ML INH PRN (20:31)
[2019-05-18] MEDS: oxyCODONE TAB* 5 MG TAB PO PRN (03:42)
[2019-05-18] MEDS: Heparin VIAL(*) 5000 UNITS/ML VIAL (FIVE THOUSAND) SUBCUT SCH ×3 (05:16→22:55)
[2019-05-18 05:31] LABS: Hematocrit 23 % (42-52); Hemoglobin 7.3 g/dL (14.0-18.0); Mean Corpuscular HGB Conc 33 g/dL (31-36); Mean Corpuscular Hemoglobin 33 pg (27-31); Mean Corpuscular Volume 100 fL (80-94); Mean Platelet Volume 9.9 fL (7.4-10.4); Platelet Count 365 10^3/uL (150-450); Red Blood Count 2.25 10^6 /uL (4.18-5.48); Red Cell Distribution Width 14 % (10-15); White Blood Count 17.8 10^3/uL (3.5-10.8)
[2019-05-18 05:49] LABS: BUN/Creatinine Ratio 23.7 (8-20); Calcium 8.5 mg/dL (8.6-10.3); EGFR African American 76.5 (>60); EGFR Non-African American 63.2 (>60); Magnesium 1.8 mg/dL (1.9-2.7); Phosphorus 2.6 mg/dL (2.5-5.0); Potassium 3.1 mmol/L (3.5-5.0)
[2019-05-18] MEDS ORDERED: Furosemide IV* 10 MG/ML 2 ML VIAL (20 MG) IV ONE (09:00)
[2019-05-18] MEDS: Folic Acid TAB* 1 MG PO SCH (09:32)
[2019-05-18] MEDS: Metoprolol Tartrate TAB* 25 MG PO SCH ×2 (09:33→20:02)
[2019-05-18] MEDS: Multivitamins ADULT w/MIN LIQ* 15 ML UDC PO SCH (09:33)
[2019-05-18] MEDS: RiFAXimin* 550 MG TAB PO SCH ×2 (09:33→20:02)
[2019-05-18] MEDS: LORazepam TAB(*) 0.5 MG PO SCH ×2 (09:33→20:02)
[2019-05-18] MEDS: Pantoprazole TAB * 40 MG TAB PO SCH ×2 (09:33→20:02)
[2019-05-18] MEDS ORDERED: KCL 20 MEQ/100 ML IVPREMIX* 20 MEQ/100 ML BAG IV ONE (09:58)
[2019-05-18] MEDS ORDERED: Magnesium Sulfate 2 GM IV* 2 GM/50 ML BAG IVPB ONE (09:58)
[2019-05-18] MEDS ORDERED: Potassium Chloride* LIQUID 20 MEQ/15 ML UDC PO ONE (09:58)
--- NOTE | 2019-05-18 10:05 | PN ---
Progress Note - Progress Note Date of Service: 05/18/19 Note: Progress Note -- Critical Care 24 hour events/significant events: -afebrile, tmax 99.7, BP stable -run of SVT 180s this morning and was alert, awake; asked to cough and broke output of SVT -he is awake, alert, on NC 2-4 L -cough+, sputum+, no resp distress though; using nebs and mucomyst -making urine, oob to chair yesterday -no complaints offered otherwise ROS: negative except for pertinent positives mentioned above Tele: NSR ; SVT this morning but broke Vitals: Vital Signs Temp 99.7 F 05/18/19 07:45 Pulse 85 05/18/19 07:45 Resp 30 05/18/19 09:33 BP 128/80 05/18/19 07:00 Pulse Ox 99 05/18/19 07:45 Intake & Output 05/17/19 05/18/19 05/18/19 18:59 06:59 18:59 Intake Total 636 306 Output Total 2495 650 100 Balance -1859 -344 -100 Weight 83 kg Intake: IV Fluids 142 306 NS (0.9%) 142 306 IVPB 494 KCl 68 Magnesium sulfate 63 Thiamine 363 Output: Maloney 1195 650 100 Liquid Stool 1300 Other: Date of Last Bowel 05/17/2019 Movement O2/Vent: salter NC Infusions: heplock Medications: Acetaminophen (Tylenol Adult Liq*) 650 mg PO Q6H PRN PRN Reason: MILD PAIN or TEMP > 100.4 Last Admin: 05/16/19 17:09 Dose: 650 mg Acetylcysteine (Mucomyst Inhalation Christie*) 400 mg INH [id number] AWAKE PRN PRN Reason: CONGESTION Last Admin: 05/16/19 20:01 Dose: 400 mg Albuterol/Ipratropium (Duoneb (Albuterol 2.5 Mg/Ipratropium 0.5 Mg)) 1 neb INH Q4H PRN PRN Reason: SOB/WHEEZING Last Admin: 05/17/19 20:31 Dose: 1 neb Folic Acid (Folvite Tab*) 1 mg PO DAILY [facility] Last Admin: 05/18/19 09:32 Dose: 1 mg Heparin Sodium (Porcine) (Heparin Vial(*)) 5,000 units SUBCUT Q8HR [facility] Last Admin: 05/18/19 05:16 Dose: 5,000 units Thiamine HCl 100 mg/ Sodium (Chloride) 51 mls @ 102 mls/hr IV Q24H [facility] Last Admin: 05/17/19 12:36 Dose: 102 mls/hr Lactulose (Lactulose*) 30 ml NG TUBE TID [facility] Last Admin: 05/18/19 09:33 Dose: 30 ml Lorazepam (Ativan Inj*) 1 mg IV PUSH Q8H PRN PRN Reason: ANXIETY Last Admin: 05/16/19 18:37 Dose: 1 mg Lorazepam (Ativan Tab(*)) 0.5 mg PO BID [facility] Last Admin: 05/18/19 09:33 Dose: 0.5 mg Metoprolol Tartrate (Lopressor Iv*) 5 mg IV Q6H PRN PRN Reason: tachycardia HR>130 Last Admin: 05/13/19 10:03 Dose: 5 mg Metoprolol Tartrate (Lopressor Tab*) 50 mg PO BID [facility] Last Admin: 05/18/19 09:33 Dose: 50 mg Miscellaneous (Ativan Pyxis Min) 1 ea N/A .ATIVAN IV MIN PRN PRN Reason: PYXIS MIN Morphine Sulfate (Morphine Inj (Syringe)*) 2 mg IV Q4H PRN PRN Reason: PAIN - SEVERE Last Admin: 05/16/19 22:13 Dose: 2 mg Multivitamins (Theragran W/Minerals Liq*) 15 ml PO DAILY [facility] Last Admin: 05/18/19 09:33 Dose: 15 ml Oxycodone HCl (Roxycodone Tab*) 5 mg PO Q4H PRN PRN Reason: PAIN - SEVERE Last Admin: 05/18/19 03:42 Dose: 5 mg Pantoprazole Sodium (Protonix Tab*) 40 mg PO BID [facility] Last Admin: 05/18/19 09:33 Dose: 40 mg Quetiapine Fumarate (Seroquel Tab*) 25 mg PO BEDTIME [facility] Last Admin: 05/17/19 20:00 Dose: 25 mg Rifaximin (Xifaxan*) 550 mg PO BID [facility] Last Admin: 05/18/19 09:33 Dose: 550 mg Physical Exam: Constitutional: awake, alert, no distress, follows commands, no diaphoresis Head: normocephalic, atraumatic Eyes: no pallor, no icterus ENT: moist mucous membranes Neck: soft, supple, no jvd CVS: normal rate, regular, no murmur Chest/Resp: bilateral air entry, bilateral rhales+, no wheeze, no rhonchi, no acc muscle use Abdomen/GI: soft, nontender, nondistended, BS+ Ext/Msk: warm, pulses+, mild UE edema+ but improving Skin: intact, warm Neuro: awake, alert, follows commands , moves all ext equally, no focal deficit Psych: normal affect Labs: Laboratory Results - last 24 hr 05/18/19 05/18/19 05:20 05:20 WBC 17.8 H RBC 2.25 L Hgb 7.3 L Hct 23 L MCV 100 H MCH 33 H MCHC 33 RDW 14 Plt Count 365 MPV 9.9 Sodium 142 Potassium 3.1 L Chloride 116 H Carbon Dioxide 21 L Anion Gap 5 BUN 28 H Creatinine 1.18 H Est GFR ( Amer) 76.5 Est GFR (Non-Af Amer) 63.2 BUN/Creatinine Ratio 23.7 H Glucose 123 H Calcium 8.5 L Phosphorus 2.6 Magnesium 1.8 L Imaging: cxr 05/12 - left sided opacification of lower half of lung field, ett above [place] CT chest 05/08 - large left lower lobe consolidation+, small effusion+ cxr 05/15 - left consolidation+, left effusion+ small cxr 05/16 - left sided effusion/consolidation+ US chest 05/16 - left complex effusion+ Assessment: 59y M w/pmhx of polysubstance abuse, opiate use, ETOH abuse, COPD, LUng Cancer s /p right lobectomy; presented to ER 05/05 for cough/sob, hypoxia, left lower lobe pneumonia, started on sepsis protocol, Vapotherm for O2 support. He was noted to have intermittent tachycardia suspected to be SVT/sinus tachy. He was started precedex for withdrawal, opiate vs alcohol. He had a GI bleed 05/07. He was intubated on 05/08 for progressive hypoxia, secretions+. A bronchoscopy was done 05/10 and 05/12 -Severe Sepsis with shock; improved -Delirium -Left lower lobe pneumonia, unspec organism -Acute hypoxic respiratory failure, intubated 05/08 -AC -Alcohol withdrawal -SVT -GI bleed suspected - 05/07 -acute blood loss anemia -thrombocytopenia -Cirrhosis -left pleural effusion, exudative in nature; s/p thoracentesis 05/13 -delirium Bronchoscopy 05/10 and 05/12, TLC 3/5 COPD h/o polysubstance abuse Plan: Neuro- -alert, oriented, delirium, resolved; cont seroquel 25mg po qhs -h/o significant drinking ; cont thiamine 100mg po daily; ativan 0.5mg po bid, PRN also IV -PRN oxycodone for pain -hyperammonemia 50s; better mental status, cont lactulose tid and cont rifaxamin -Delirium prec CVS- -BP stable -SVT x1 this morning; cont metoprolol 50mg bid -overall gross edema+; good urine output; lasix 20mg iv daily -hg stable, no overt bleeding -Maintain MAP>65 Resp- -on NC -rhales+, likely seems to be secretions more than congestion based on cxrs; will cont nebs/mucomyst/chest PT as needed and this may help to clear all this, encourage incentive and coughing -CXR 05/16 - increased left effusion, consol? -US chest 05/16 - left effusion; needs likely Chest tube today for exudative effusion/therapuetic drainage -will discuss with IR if possible today, they were unable to yesterday -no active distress otherwise, clinically improving -has exudative effusion, culture negative; will benefit from Chest tube for continued drainage -left thoracentesis 05/13 with 1900+ out -chest PT; nebulizers, mucomyst; oob of bed, encourage incentive spirometry; supplemental o2 as needed -bronchoscopy 05/12 with more plugs cleared -Wean Fio2 to keep sat>92% -Bronchodilators PRN, Aspiration prec, Pulmonary Toilet ID- afebrile, wbc [id number], stable , nontoxic appearing -sputum culture 05/10 negative; yeast only -blood cxs neg 05/10, 05/08 -left pleural fluid with neutrophils, low glucose, exudative; but no bacteria on stain; so far neg growth -CXR 05/16 - left cosnol with effusion+ -has been on vanco/ctx 05/05-05/07, then vanco/zosyn 05/07-05/11, vanco/cefepime 05/11, d/ c'ed 05/13 -monitor off abx GI- -no further bleeding from GI ; cont ppi bid -hg 7-8s -regular po diet -US of abdomen - POC by me showing mild ascites only -hyperammonemia - cont lactulose tid and rifaxamin; diarrhea+ -GI prophylaxis Renal- -AC; Cr stable 1.2; good urine output -replete K and Mg IV and PO today -gross edema+; good urine output; cont lasix 20mg IV daily -hypernatremia; improved -maloney+ -strict I/O, replete to keep K>4, Mg>2 -maloney as indicated Heme- -anemia, suspect GI loss; has been stable 7-8s; close observation; check h/h today 1600 -thrombocytopenia improved Endo-Maintain BG<200, insulin protocol as needed Musculsk- pressure ulcer prophylaxis. oob to chair Wounds- none Nutrition- regular po diet DVT prophylaxis: heparin sq GI prophylaxis: ppi Central Line: yes Arterial Line: no Maloney Cathetor: yes; may d/c today Disposition: Patient requires Critical Care/ICU for respiratory failure, encephalopathy, sepsis ; may consider downgrade to medical floor next 24 hours Patient clinical status: guarded Code Status: full code Total Critical Care time is 30 minutes, excluding procedures/teaching Kevin Bonilla MD Oil Well Fishing Tool Technician (Electronically Signed)
[2019-05-18] MEDS: Thiamine INJ* 100 MG in NS 0.9% 50 ML* 50 ML IV SCH (10:07)
[2019-05-18] MEDS: Thiamine TAB* 100 MG TAB PO SCH (10:09)
[2019-05-18] MEDS: Furosemide IV* 10 MG/ML 2 ML VIAL (20 MG) IV SLOW PU SCH (10:30)
[2019-05-18] MEDS: LORazepam INJ* 2 MG/ML 1 ML VIAL IV PUSH PRN (12:13)
[2019-05-18] MEDS ORDERED: methylPREDNISolone 125 MG* 2 ML VIAL IV ONE (17:09)
[2019-05-18 18:00] LABS: Hematocrit 25 % (42-52); Hemoglobin 7.9 g/dL (14.0-18.0)
[2019-05-18] MEDS ORDERED: Metoprolol Tartrate IV* 1 MG/ML 5 ML VIAL IV ONE (19:23)
[2019-05-18] MEDS: QUEtiapine TAB* 25 MG PO SCH (20:02)
[2019-05-18] MEDS: Morphine INJ* 4 MG/ML 1 ML SYRINGE (NEW SYRINGE VERSION) IV PRN (22:42)
[2019-05-18] MEDS ORDERED: Haloperidol INJ IV/IM* 5 MG/ML AMP IV SLOW PU PRN (23:48)
[2019-05-19] MEDS ORDERED: Magnesium Sulfate 2 GM IV (Premix) IVPB ONE
[2019-05-19] MEDS ORDERED: Metoprolol Tartrate IV* 1 MG/ML 5 ML VIAL IV STA (00:39)
[2019-05-19] MEDS ORDERED: Dexmedetomidine* 1,000 MCG in NS 0.9% 250 ML* 240 ML IV SCH (02:00)
[2019-05-19] MEDS: Morphine INJ* 4 MG/ML 1 ML SYRINGE (NEW SYRINGE VERSION) IV PRN (02:40)
[2019-05-19] MEDS ORDERED: Lidocaine 2% JELLY *30 ML TOPICAL PRN (03:14)
[2019-05-19] MEDS ORDERED: Vitamins A & D OINT* 60 GM TUBE TOPICAL PRN (03:14)
[2019-05-19] MEDS ORDERED: Succinylcholine* 20 MG/ML 10 ML VIAL ONE (03:41)
--- NOTE | 2019-05-19 03:42 | ED ---
ED Procedures - Procedure Summary Procedure Summary: Respiratory failure for last three days. Progressively worsening today. Increased secretions. Put on BiPAP, up to 100% for sats. Decreased mentation indication for intubation. Glideoscope used. 30mg Etomidate, 100mg Succinylcholine. Cords were visualized 8.0 ETT, placed at 23cm at lip. Good color change. Good breath sounds bilaterally. Tolerated well. Confirmed by me on x-ray. - Attestation Statements Document Initiated by Scribe: Yes Documenting Scribe: Courtney Garcia Provider For Whom Sheree is Documenting (Include Credential): Narda Méndez MD Scribe Attestation: ICourtney, scribed for Narda Méndez MD on 05/19/19 at 0506. Scribe Documentation Reviewed: Yes Provider Attestation: The documentation as recorded by the Courtney delgadillo accurately reflects the service I personally performed and the decisions made by me, Narda Méndez MD Status of Scribe Document: Viewed
[2019-05-19] MEDS ORDERED: Etomidate* 2 MG/ML 20 ML VIAL (40 MG) ONE (03:43)
[2019-05-19] MEDS ORDERED: Norepinephrine 16MCG/ML IVPRE* 4,000 MCG/250 ML BAG IV ONE (03:53)
[2019-05-19] MEDS ORDERED: Propofol* 100 ML ONE (04:16)
[2019-05-19] MEDS ORDERED: Atropine SYRINGE* 0.1 MG/ML 10 ML SYRINGE (1 MG) IV PUSH ONE (04:30)
[2019-05-19] MEDS ORDERED: Vasopressin* 100 UNITS in D5W 250 ML BAG IV SCH (05:00)
[2019-05-19] MEDS: Propofol* 100 ML IV ONE ×2 (05:14→13:00)
[2019-05-19] MEDS: Norepinephrine 16MCG/ML IVPRE* 4,000 MCG/250 ML BAG IV SCH ×2 (05:14→09:06)
[2019-05-19 06:14] LABS: Albumin 2.1 g/dL (3.2-5.2); Albumin/Globulin Ratio 0.5 (1-3); Calcium 8.4 mg/dL (8.6-10.3); EGFR African American 71.5 (>60); EGFR Non-African American 59.1 (>60); Globulin 4.5 g/dL (2-4); Potassium 4.3 mmol/L (3.5-5.0); Total Bilirubin 0.5 mg/dL (0.2-1.0); Total Protein 6.6 g/dL (6.4-8.9)
[2019-05-19 06:48] LABS: ABS Lymphocytes 0.3 10^3/ul (1.0-4.8); ABS Monocytes 0.5 10^3/ul (0-0.8); Hematocrit 21 % (42-52); Hemoglobin 6.8 g/dL (14.0-18.0); Lymphocyte % 1.7 %; Mean Corpuscular HGB Conc 33 g/dL (31-36); Mean Corpuscular Hemoglobin 33 pg (27-31); Mean Corpuscular Volume 101 fL (80-94); Mean Platelet Volume 9.5 fL (7.4-10.4); Platelet Count 384 10^3/uL (150-450); Red Blood Count 2.04 10^6 /uL (4.18-5.48); Red Cell Distribution Width 14 % (10-15); White Blood Count 14.8 10^3/uL (3.5-10.8)
[2019-05-19] MEDS: Heparin VIAL(*) 5000 UNITS/ML VIAL (FIVE THOUSAND) SUBCUT SCH ×3 (07:45→21:08)
[2019-05-19 09:04] LABS: BUN/Creatinine Ratio 26.4 (8-20); Blood Urea Nitrogen 32 mg/dL (6-24); CO2 Carbon Dioxide 21 mmol/L (22-32); Calcium 7.9 mg/dL (8.6-10.3); EGFR African American 74.3 (>60); EGFR Non-African American 61.4 (>60); Glucose 128 mg/dL (70-100); Magnesium 2.1 mg/dL (1.9-2.7); Phosphorus 4.5 mg/dL (2.5-5.0); Potassium 4.3 mmol/L (3.5-5.0); Sodium 142 mmol/L (135-145)
[2019-05-19 09:05] LABS: Anion Gap 4 mmol/L (2-11); Chloride 117 mmol/L (101-111)
[2019-05-19 09:05] LABS: Hematocrit 20 % (42-52); Hemoglobin 6.6 g/dL (14.0-18.0); Mean Corpuscular HGB Conc 33 g/dL (31-36); Mean Corpuscular Hemoglobin 33 pg (27-31); Mean Corpuscular Volume 100 fL (80-94); Mean Platelet Volume 9.5 fL (7.4-10.4); Platelet Count 354 10^3/uL (150-450); Red Blood Count 1.98 10^6 /uL (4.18-5.48); Red Cell Distribution Width 15 % (10-15); White Blood Count 15.6 10^3/uL (3.5-10.8)
[2019-05-19 09:07] LABS: Troponin I 0.09 ng/mL (<0.03)
[2019-05-19] MEDS: Folic Acid TAB* 1 MG PO SCH (09:31)
[2019-05-19] MEDS: LORazepam TAB(*) 0.5 MG PO SCH (09:31)
[2019-05-19] MEDS: Metoprolol Tartrate TAB* 25 MG PO SCH (09:32)
[2019-05-19] MEDS: RiFAXimin* 550 MG TAB PO SCH ×2 (09:32→23:10)
[2019-05-19] MEDS: Multivitamins ADULT w/MIN LIQ* 15 ML UDC PO SCH (09:32)
[2019-05-19] MEDS: Thiamine TAB* 100 MG TAB PO SCH (09:32)
[2019-05-19] MEDS: Pantoprazole IV* 40 MG IV SCH (10:58)
--- NOTE | 2019-05-19 12:06 | PN ---
Progress Note - Progress Note Date of Service: 05/19/19 Note: Progress Note -- Critical Care 24 hour events/significant events: -was in distress yesterday, then confused more, placed on NIV, febrile 101 -in evening calmed down, then back on NC, ABG reviewed and was adeqaute -tmax 101 overnight; now afebrile past morning -intubated for delirium, hypoxia -on levophed and vasopressin -noted drop in h/h to 6.6; for 2 prbc today; no clear bleeding source identified -arterial line placed -on propofol for sedation -BP stable, HR stable ; had some christina with suctioning overnight ROS: ROS unable to be obtained secondary to intubated/sedated Tele: NSR Vitals: Vital Signs Temp 97.2 F 05/19/19 11:00 Pulse 54 05/19/19 11:00 Resp 18 05/19/19 11:00 BP 79/56 05/19/19 10:30 Pulse Ox 100 05/19/19 11:00 Intake & Output 05/18/19 05/19/19 05/19/19 18:59 06:59 18:59 Intake Total 0 279.5 Output Total 1320 825 175 Balance -1320 -545.5 -175 Weight 79.2 kg Intake: Medicated IV 279.5 CC - Propofol/Diprivan 28 Levophed 168 Precedex 75 vasopressin 8.5 Oral 0 Output: LEANN #1 40 Maloney 1320 785 175 O2/Vent: PC 25/10/ rate 18, 70% Infusions: propofol, levophed, vasopressin Medications: Acetaminophen (Tylenol Adult Liq*) 650 mg PO Q6H PRN PRN Reason: MILD PAIN or TEMP > 100.4 Last Admin: 05/16/19 17:09 Dose: 650 mg Acetylcysteine (Mucomyst Inhalation Christie*) 400 mg INH [id number] AWAKE PRN PRN Reason: CONGESTION Last Admin: 05/16/19 20:01 Dose: 400 mg Albuterol/Ipratropium (Duoneb (Albuterol 2.5 Mg/Ipratropium 0.5 Mg)) 1 neb INH Q4H PRN PRN Reason: SOB/WHEEZING Last Admin: 05/17/19 20:31 Dose: 1 neb Folic Acid (Folvite Tab*) 1 mg PO DAILY [facility] Last Admin: 05/19/19 09:31 Dose: Not Given Furosemide (Lasix Iv*) 20 mg IV SLOW PU DAILY [facility] Last Admin: 05/18/19 10:30 Dose: Not Given Haloperidol Lactate (Haldol Inj Iv/Im*) 2.5 mg IV SLOW PU Q6H PRN PRN Reason: AGITATION Last Admin: 05/19/19 00:14 Dose: 2.5 mg Heparin Sodium (Porcine) (Heparin Vial(*)) 5,000 units SUBCUT Q8HR [facility] Last Admin: 05/19/19 07:45 Dose: Not Given Norepinephrine Bitartrate (Levophed 16 Mcg/Ml Premix*) 4,000 mcg in 250 mls @ 18.75 mls/hr IV .PER PROTOCOL [facility]; Protocol Last Admin: 05/19/19 09:06 Dose: 18.75 mls/hr Propofol (Diprivan*) 100 mls @ 9.504 mls/hr IV .PER PROTOCOL [facility]; Protocol Stop: 05/19/19 15:31 Last Admin: 05/19/19 05:14 Dose: 9.504 mls/hr Vasopressin 100 units/ (Dextrose) 250 mls @ 6 mls/hr IV .PER PROTOCOL [facility]; Protocol Last Admin: 05/19/19 05:14 Dose: 6 mls/hr Lactulose (Lactulose*) 30 ml PO TID [facility] Last Admin: 05/19/19 09:31 Dose: Not Given Lidocaine HCl (Lidocaine 2% Jelly*) 1 applic TOPICAL Q6H PRN PRN Reason: SKIN IRRITATION Lorazepam (Ativan Inj*) 1 mg IV PUSH Q8H PRN PRN Reason: ANXIETY Last Admin: 05/18/19 12:13 Dose: 1 mg Lorazepam (Ativan Tab(*)) 0.5 mg PO BID [facility] Last Admin: 05/19/19 09:31 Dose: Not Given Metoprolol Tartrate (Lopressor Tab*) 50 mg PO BID [facility] Last Admin: 05/19/19 09:32 Dose: Not Given Miscellaneous (Ativan Pyxis Min) 1 ea N/A .ATIVAN IV MIN PRN PRN Reason: PYXIS MIN Multivitamins (Theragran W/Minerals Liq*) 15 ml PO DAILY [facility] Last Admin: 03/14/20 09:32 Dose: Not Given Oxycodone HCl (Roxycodone Tab*) 5 mg PO Q4H PRN PRN Reason: PAIN - SEVERE Last Admin: 05/18/19 03:42 Dose: 5 mg Pantoprazole Sodium (Protonix Iv*) 40 mg IV DAILY [facility] Last Admin: 05/19/19 10:58 Dose: 40 mg Quetiapine Fumarate (Seroquel Tab*) 25 mg PO BEDTIME [facility] Last Admin: 05/18/19 20:02 Dose: Not Given Rifaximin (Xifaxan*) 550 mg PO BID [facility] Last Admin: 05/19/19 09:32 Dose: Not Given Thiamine HCl (Vitamin B-1 Tab*) 100 mg PO DAILY [facility] Last Admin: 05/19/19 09:32 Dose: Not Given Vitamin A/Vitamin D (Vitamin A & D Oint*) 1 applic TOPICAL Q6H PRN PRN Reason: SKIN IRRITATION Physical Exam: Constitutional: intubated, sedated, no distress, no diaphoresis Head: normocephalic, atraumatic Eyes: no pallor, no icterus ENT: moist mucous membranes Neck: soft, supple, no jvd CVS: normal rate, regular, no murmur Chest/Resp: bilateral air entry, scattered rhonchi+, gregory rhales+, no wheeze, no acc muscle use Abdomen/GI: soft, nontender, mild distension, BS+ Ext/Msk: warm, pulses+, mild UE edema+ but improving Skin: intact, warm Neuro: intubated, sedated; limited exam on sedation Psych: unable to assess, sedated/intubated Labs: Laboratory Results - last 24 hr 05/18/19 05/18/19 05/19/19 15:50 17:49 05:36 WBC RBC Hgb 7.9 L Hct 25 L MCV MCH MCHC RDW Plt Count MPV Neut % (Auto) Lymph % (Auto) [place] % (Auto) Eos % (Auto) Baso % (Auto) Absolute Neuts (auto) Absolute Lymphs (auto) Absolute Monos (auto) Absolute Eos (auto) Absolute Basos (auto) Absolute Nucleated RBC Nucleated RBC % Patient Temperature Not Reportable Not Reportable ABG pH 7.38 7.25 L ABG pH (Temp Correct) Not Reportable Not Reportable ABG pCO2 36 48 H ABG pCO2 (Temp Corrct Not Reportable Not Reportable ABG pO2 110 H 140 H ABG pO2 (Temp Correct Not Reportable Not Reportable ABG HCO3 22.4 20.0 ABG O2 Saturation 99.4 H 100.0 H ABG Base Excess -3.3 L -6.4 L Respiration Rate 10 14 O2 Delivery Device vent Ventilator Type Not Reportable Not Reportable Vent Mode Not Reportable pcv FiO2 50 100 Inspiratory Time Not Reportable 1.0 PEEP Not Reportable 10 Pressure Support Not Reportable Not Reportable Pressure Control Not Reportable 20 EPAP 6 Not Reportable IPAP 12 Not Reportable BiPAP Not Reportable Not Reportable Sodium Potassium Chloride Carbon Dioxide Anion Gap BUN Creatinine Est GFR ( Amer) Est GFR (Non-Af Amer) BUN/Creatinine Ratio Glucose Lactic Acid Calcium Phosphorus Magnesium Total Bilirubin AST ALT Alkaline Phosphatase Troponin I Total Protein Albumin Globulin Albumin/Globulin Ratio Blood Type Antibody Screen Crossmatch 05/19/19 05/19/19 05/19/19 05:40 06:28 06:28 WBC 14.8 H RBC 2.04 L Hgb 6.8 L Hct 21 L MCV 101 H MCH 33 H MCHC 33 RDW 14 Plt Count 384 MPV 9.5 Neut % (Auto) 94.7 Lymph % (Auto) 1.7 [place] % (Auto) 3.5 Eos % (Auto) 0.0 Baso % (Auto) 0.1 Absolute Neuts (auto) 14.0 H Absolute Lymphs (auto) 0.3 L Absolute Monos (auto) 0.5 Absolute Eos (auto) 0.0 Absolute Basos (auto) 0.0 Absolute Nucleated RBC 0.0 Nucleated RBC % 0.0 Patient Temperature ABG pH ABG pH (Temp Correct) ABG pCO2 ABG pCO2 (Temp Corrct ABG pO2 ABG pO2 (Temp Correct ABG HCO3 ABG O2 Saturation ABG Base Excess Respiration Rate O2 Delivery Device Ventilator Type Vent Mode FiO2 Inspiratory Time PEEP Pressure Support Pressure Control EPAP IPAP BiPAP Sodium 142 Potassium 4.3 Chloride 117 H Carbon Dioxide 21 L Anion Gap 4 BUN 30 H Creatinine 1.25 H Est GFR ( Amer) 71.5 Est GFR (Non-Af Amer) 59.1 BUN/Creatinine Ratio 24.0 H Glucose 137 H Lactic Acid 0.8 Calcium 8.4 L Phosphorus Magnesium Total Bilirubin 0.50 AST 42 H ALT 32 Alkaline Phosphatase 112 H Troponin I Total Protein 6.6 Albumin 2.1 L Globulin 4.5 H Albumin/Globulin Ratio 0.5 L Blood Type Antibody Screen Crossmatch 05/19/19 05/19/19 05/19/19 08:38 08:59 08:59 WBC 15.6 H RBC 1.98 L Hgb 6.6 L Hct 20 L MCV 100 H MCH 33 H MCHC 33 RDW 15 Plt Count 354 MPV 9.5 Neut % (Auto) Lymph % (Auto) [place] % (Auto) Eos % (Auto) Baso % (Auto) Absolute Neuts (auto) Absolute Lymphs (auto) Absolute Monos (auto) Absolute Eos (auto) Absolute Basos (auto) Absolute Nucleated RBC Nucleated RBC % Patient Temperature ABG pH ABG pH (Temp Correct) ABG pCO2 ABG pCO2 (Temp Corrct ABG pO2 ABG pO2 (Temp Correct ABG HCO3 ABG O2 Saturation ABG Base Excess Respiration Rate O2 Delivery Device Ventilator Type Vent Mode FiO2 Inspiratory Time PEEP Pressure Support Pressure Control EPAP IPAP BiPAP Sodium 142 Potassium 4.3 Chloride 117 H Carbon Dioxide 21 L Anion Gap 4 BUN 32 H Creatinine 1.21 H Est GFR ( Amer) 74.3 Est GFR (Non-Af Amer) 61.4 BUN/Creatinine Ratio 26.4 H Glucose 128 H Lactic Acid Calcium 7.9 L Phosphorus 4.5 Magnesium 2.1 Total Bilirubin AST ALT Alkaline Phosphatase Troponin I 0.09 H* Total Protein Albumin Globulin Albumin/Globulin Ratio Blood Type B Positive Antibody Screen Negative Crossmatch See Detail Imaging: cxr 05/12 - left sided opacification of lower half of lung field, ett above [place] CT chest 05/08 - large left lower lobe consolidation+, small effusion+ cxr 05/15 - left consolidation+, left effusion+ small cxr 05/16 - left sided effusion/consolidation+ US chest 05/16 - left complex effusion+ Assessment: 59y M w/pmhx of polysubstance abuse, opiate use, ETOH abuse, COPD, LUng Cancer s /p right lobectomy; presented to ER 05/05 for cough/sob, hypoxia, left lower lobe pneumonia, started on sepsis protocol, Vapotherm for O2 support. He was noted to have intermittent tachycardia suspected to be SVT/sinus tachy. He was started precedex for withdrawal, opiate vs alcohol. He had a GI bleed 05/07. He was intubated on 05/08 for progressive hypoxia, secretions+. A bronchoscopy was done 05/10 and 05/12 -Severe Sepsis with shock; improved -Delirium -Left lower lobe pneumonia, unspec organism -Acute hypoxic respiratory failure, intubated 05/08 -AC -Alcohol withdrawal -SVT -GI bleed suspected - 05/07 -acute blood loss anemia -thrombocytopenia -Cirrhosis -left pleural effusion, exudative in nature; s/p thoracentesis 05/13 -delirium Bronchoscopy 05/10 and 05/12, TLC 3/5 COPD h/o polysubstance abuse Plan: Neuro- -sedated; on propofol, will decrease today to assess neuro status -cont seroquel 25mg po qhs -h/o significant drinking ; cont thiamine 100mg po daily; ativan 0.5mg iv q8h prn -PRN oxycodone for pain -hyperammonemia 50s; cont lactulose tid and cont rifaxamin -Delirium prec CVS- -shock, on pressors, suspect hypovolemia from blood loss vs sepsis; on levo and vaso, weanning down -hold metoprolol 50mg bid -overall gross edema+; good urine output; lasix 20mg iv daily -hg drop noted; transfuse 2 prbc today; no clear source -Maintain MAP>65 Resp- -on PC mode 70% -CXR without new focal infiltrates, left side aeration improved and some scattered right infiltrate -bedside US wtih mod left effusion with fibrin all over -rhonchi/rhales improved; hold off further steroids -secretions better; send for culture this morning, tanya schrader during intubation -?aspiration, vs poor clearance/cough -may consider repeat imagnig if cotinued secretions -will consider chest tube drainage today bedside by me -has exudative effusion, culture negative; left thoracentesis 05/13 with 1900+ out -bronchoscopy 05/12 with more plugs cleared -Wean Fio2 to keep sat>92% -Bronchodilators PRN, Aspiration prec, Pulmonary Toilet ID- tmax 101, but afebrile after intubation; wbc 18-98-13-21-21-17-13, stable , nontoxic appearing -sputum culture 05/10 negative; yeast only -blood cxs neg 05/10, 05/08 -left pleural fluid with neutrophils, low glucose, exudative; but no bacteria on stain; so far neg growth -CXR 05/17 - left cosnol with effusion+ -sputum cx in process, blood cx in process 05/18 -has been on vanco/ctx 05/05-05/07, then vanco/zosyn 05/07-05/11, vanco/cefepime 05/11, d/ c'ed 05/13 -monitor off abx, dec pressors GI- -no further bleeding from GI seen; cont ppi bid -hg drop, transfuse 2 prbc -NPO -US of abdomen - POC by me showing mild ascites only -hyperammonemia - cont lactulose tid and rifaxamin; diarrhea+ -GI prophylaxis Renal- -AC; Cr stable 1.2; good urine output -gross edema+; good urine output; cont lasix 20mg IV daily -hypernatremia; improved -maloney+ -strict I/O, replete to keep K>4, Mg>2 -maloney as indicated Heme- -anemia, suspect GI loss?; no clear source; transfuse 2 prbc today for drop in 6s -thrombocytopenia improved Endo-Maintain BG<200, insulin protocol as needed Musculsk- pressure ulcer prophylaxis. bedrest Wounds- none Nutrition- npo DVT prophylaxis: heparin sq GI prophylaxis: ppi Central Line: yes 05/09 Arterial Line: yes right fem, 05/18 Maloney Cathetor: yes Disposition: Patient requires Critical Care/ICU for respiratory failure, encephalopathy, sepsis ; may consider downgrade to medical floor next 24 hours Patient clinical status: guarded Code Status: full code Total Critical Care time is 40 minutes, excluding procedures/teaching Kevin Bonilla MD [employer]isher (Electronically Signed)
[2019-05-19] MEDS ORDERED: LORazepam INJ* 2 MG/ML 1 ML VIAL IV PUSH PRN (12:19)
[2019-05-19] MEDS: Furosemide IV* 10 MG/ML 2 ML VIAL (20 MG) IV SLOW PU SCH (15:11)
[2019-05-19 20:18] LABS: Hematocrit 27 % (42-52); Hemoglobin 9.1 g/dL (14.0-18.0)
[2019-05-19] MEDS: QUEtiapine TAB* 25 MG PO SCH (21:07)
[2019-05-19] MEDS ORDERED: Midazolam* 1 MG/ML 2 ML VIAL (2 MG) ONE (21:51)
[2019-05-19] MEDS ORDERED: Midazolam* 1 MG/ML 2 ML VIAL (2 MG) IV SLOW PU ONE (22:30)
--- NOTE | 2019-05-19 22:40 | OP ---
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 [place] Protocol: Time-out was performed and the correct patient and site were verified -Previous imaging and lab work (coags/platelets), medications were reviewed. -Full sterile precautions with Chlorhexidine/full drapes/gowns/gloves were utilized. -Ultrasound was used to visualize the appropriate intercostal space for access. Image was not saved. -7th LEFT intercostal space was marked, SC lidocaine used for local anesthesia. -18 gauge needle was used to enter pleural space, while avoid neuro/vasc bundle. Entry into pleural space confirmed with return of , and guidewire was passed into space. Track was dilated and 14Fr chest tube was passed into space with good tidaling observed. -Chest tube was connect to pleuravac for drainage, sutured to site, dressing applied Patient tolerated procedure well, no immediate complications noted. EBL <5 cc Post Procedure CXR: Pending Kevin Bonilla MD Sheriff Deputy (Electronically Signed)
[2019-05-19] MEDS: fentaNYL INFUSION 50 MCG/ML* 2,500 MCG/50 ML BAG IV SCH (23:10)
[2019-05-20] MEDS ORDERED: Chlorhexidine MOUTHWASH 0.12%* 15 ML UDC ONE (02:24)
[2019-05-20] MEDS: Propofol* 100 ML IV SCH ×4 (02:27→18:48)
[2019-05-20] MEDS: Heparin VIAL(*) 5000 UNITS/ML VIAL (FIVE THOUSAND) SUBCUT SCH ×3 (04:46→20:49)
[2019-05-20 05:10] LABS: Hematocrit 28 % (42-52); Hemoglobin 9.3 g/dL (14.0-18.0); Mean Corpuscular HGB Conc 33 g/dL (31-36); Mean Corpuscular Hemoglobin 31 pg (27-31); Mean Corpuscular Volume 95 fL (80-94); Mean Platelet Volume 9.5 fL (7.4-10.4); Platelet Count 347 10^3/uL (150-450); Red Blood Count 2.97 10^6 /uL (4.18-5.48); Red Cell Distribution Width 17 % (10-15)
[2019-05-20] MEDS: Norepinephrine 16MCG/ML IVPRE* 4,000 MCG/250 ML BAG IV SCH (05:26)
[2019-05-20] MEDS: Chlorhexidine MOUTHWASH 0.12%* 15 ML UDC TOPICAL SCH ×4 (05:27→20:49)
[2019-05-20 05:30] LABS: Calcium 8.4 mg/dL (8.6-10.3); Magnesium 1.9 mg/dL (1.9-2.7); Phosphorus 3.6 mg/dL (2.5-5.0); Potassium 3.7 mmol/L (3.5-5.0)
[2019-05-20] MEDS: Folic Acid TAB* 1 MG PO SCH (07:58)
[2019-05-20] MEDS: Multivitamins ADULT w/MIN LIQ* 15 ML UDC PO SCH (08:00)
[2019-05-20] MEDS: Thiamine TAB* 100 MG TAB PO SCH (08:02)
[2019-05-20] MEDS: RiFAXimin* 550 MG TAB PO SCH ×2 (08:02→20:49)
[2019-05-20] MEDS: Furosemide IV* 10 MG/ML 2 ML VIAL (20 MG) IV SLOW PU SCH (08:17)
[2019-05-20] MEDS: Pantoprazole IV* 40 MG IV SCH (08:18)
[2019-05-20] MEDS ORDERED: Norepinephrine 16MCG/ML IVPRE* 4,000 MCG/250 ML BAG IV SCH (09:43)
--- NOTE | 2019-05-20 14:07 | PN ---
Progress Note - Progress Note Date of Service: 05/20/19 Note: Progress Note -- Critical Care 24 hour events/significant events: -afebrile -intubated on propofol and fentnayl infusion -on levophed and vasopressin -making urine -Chest tube placed on left side; CT chest done this morning -secretions+, dark/brown still -has not awoken on less sedation -s/p 2 prbc yesterday given for drop in h/h; no focal area of bleeding noted -family at bedside, discussed plan today -episodic SVT at times; off metoprolol; broke spontaneously ROS: ROS unable to be obtained secondary to intubated/sedated Tele: NSR Vitals: Vital Signs Temp 97.3 F 05/20/19 13:00 Pulse 114 05/20/19 13:00 Resp 18 05/20/19 13:00 BP 79/56 05/19/19 10:30 Pulse Ox 100 05/20/19 13:00 Intake & Output 05/19/19 05/20/19 05/20/19 18:59 06:59 18:59 Intake Total 922.5 576 Output Total 1168 2760 1675 Balance -245.5 -2184 -1675 Weight 78.8 kg Intake: Medicated IV 273.5 576 CC - Propofol/Diprivan 70.9 324 Levophed 146 190 Precedex 11 vasopressin 45.6 62 Packed Cells 649 Output: Chest Tube #1 420 Maloney 5053 543 6593 Liquid Stool 1400 O2/Vent: PC 25/10/ rate 18, 40% Infusions: propofol, levophed, vasopressin, fentanyl Medications: Acetaminophen (Tylenol Adult Liq*) 650 mg PO Q6H PRN PRN Reason: MILD PAIN or TEMP > 100.4 Last Admin: 05/16/19 17:09 Dose: 650 mg Acetylcysteine (Mucomyst Inhalation Christie*) 400 mg INH [id number] AWAKE PRN PRN Reason: CONGESTION Last Admin: 05/16/19 20:01 Dose: 400 mg Albuterol/Ipratropium (Duoneb (Albuterol 2.5 Mg/Ipratropium 0.5 Mg)) 1 neb INH Q4H PRN PRN Reason: SOB/WHEEZING Last Admin: 05/17/19 20:31 Dose: 1 neb Chlorhexidine Gluconate (Peridex Mouth Wash 0.12%*) 15 ml TOPICAL Q4H [facility] Last Admin: 05/20/19 08:18 Dose: 15 ml Folic Acid (Folvite Tab*) 1 mg PO DAILY [facility] Last Admin: 05/20/19 07:58 Dose: Not Given Furosemide (Lasix Iv*) 20 mg IV SLOW PU DAILY [facility] Last Admin: 05/20/19 08:17 Dose: 20 mg Haloperidol Lactate (Haldol Inj Iv/Im*) 2.5 mg IV SLOW PU Q6H PRN PRN Reason: AGITATION Last Admin: 05/19/19 00:14 Dose: 2.5 mg Heparin Sodium (Porcine) (Heparin Vial(*)) 5,000 units SUBCUT Q8HR [facility] Last Admin: 05/20/19 04:46 Dose: Not Given Vasopressin 100 units/ (Dextrose) 250 mls @ 6 mls/hr IV .PER PROTOCOL [facility]; Protocol Last Admin: 05/19/19 05:14 Dose: 6 mls/hr Propofol (Diprivan*) 100 mls @ 9.504 mls/hr IV .PER PROTOCOL [facility]; Protocol Last Admin: 05/20/19 10:09 Dose: 22.4 mls/hr Fentanyl Citrate (Fentanyl Infusion Bag 50 Mcg/Ml 50 Ml) 2,500 mcg in 50 mls @ 1 mls/hr IV Q72H [facility]; Protocol Last Admin: 05/19/19 23:10 Dose: 1 mls/hr Norepinephrine Bitartrate (Levophed 16 Mcg/Ml Premix*) 4,000 mcg in 250 mls @ 18.75 mls/hr IV .PER PROTOCOL [facility]; Protocol Lactulose (Lactulose*) 30 ml PO TID [facility] Last Admin: 05/20/19 07:59 Dose: Not Given Lidocaine HCl (Lidocaine 2% Jelly*) 1 applic TOPICAL Q6H PRN PRN Reason: SKIN IRRITATION Lorazepam (Ativan Inj*) 0.5 mg IV PUSH Q8H PRN PRN Reason: ANXIETY Miscellaneous (Ativan Pyxis Min) 1 ea N/A .ATIVAN IV MIN PRN PRN Reason: PYXIS MIN Multivitamins (Theragran W/Minerals Liq*) 15 ml PO DAILY [facility] Last Admin: 05/20/19 08:00 Dose: Not Given Oxycodone HCl (Roxycodone Tab*) 5 mg PO Q4H PRN PRN Reason: PAIN - SEVERE Last Admin: 05/18/19 03:42 Dose: 5 mg Pantoprazole Sodium (Protonix Iv*) 40 mg IV DAILY [facility] Last Admin: 05/20/19 08:18 Dose: 40 mg Quetiapine Fumarate (Seroquel Tab*) 25 mg PO BEDTIME [facility] Last Admin: 05/19/19 21:07 Dose: Not Given Rifaximin (Xifaxan*) 550 mg PO BID [facility] Last Admin: 05/20/19 08:02 Dose: Not Given Thiamine HCl (Vitamin B-1 Tab*) 100 mg PO DAILY [facility] Last Admin: 05/20/19 08:02 Dose: Not Given Vitamin A/Vitamin D (Vitamin A & D Oint*) 1 applic TOPICAL Q6H PRN PRN Reason: SKIN IRRITATION Physical Exam: Constitutional: intubated, sedated, no distress, no diaphoresis Head: normocephalic, atraumatic Eyes: no pallor, no icterus ENT: moist mucous membranes Neck: soft, supple, no jvd CVS: normal rate, regular, no murmur Chest/Resp: bilateral air entry, minimal rhonchi, no rhales, no wheeze, no acc muscle use Abdomen/GI: soft, nontender, mild distension, BS+ Ext/Msk: warm, pulses+, mild UE edema+ but improving Skin: intact, warm Neuro: intubated, sedated; limited exam on sedation Psych: unable to assess, sedated/intubated Labs: Laboratory Results - last 24 hr 05/19/19 05/19/19 05/20/19 08:59 20:05 04:46 WBC RBC Hgb 9.1 L Hct 27 L MCV MCH MCHC RDW Plt Count MPV Sodium 144 Potassium 3.7 Chloride 117 H Carbon Dioxide 22 Anion Gap 5 BUN 36 H Creatinine 1.20 H Est GFR ( Amer) 75.0 Est GFR (Non-Af Amer) 62.0 BUN/Creatinine Ratio 30.0 H Glucose 100 Calcium 8.4 L Phosphorus 3.6 Magnesium 1.9 Blood Type B Positive Antibody Screen Negative Crossmatch See Detail 05/20/19 04:46 WBC 18.0 H RBC 2.97 L Hgb 9.3 L Hct 28 L MCV 95 H MCH 31 MCHC 33 RDW 17 H Plt Count 347 MPV 9.5 Sodium Potassium Chloride Carbon Dioxide Anion Gap BUN Creatinine Est GFR ( Amer) Est GFR (Non-Af Amer) BUN/Creatinine Ratio Glucose Calcium Phosphorus Magnesium Blood Type Antibody Screen Crossmatch Imaging: cxr 05/12 - left sided opacification of lower half of lung field, ett above [place] CT chest 05/08 - large left lower lobe consolidation+, small effusion+ cxr 05/15 - left consolidation+, left effusion+ small cxr 05/16 - left sided effusion/consolidation+ US chest 05/16 - left complex effusion+ cxr 05/18 - ett above albertina; left CT in place , left scattered infiltrates but improved CT chest 05/19 - pending official read Assessment: 59y M w/pmhx of polysubstance abuse, opiate use, ETOH abuse, COPD, LUng Cancer s /p right lobectomy; presented to ER 05/05 for cough/sob, hypoxia, left lower lobe pneumonia, started on sepsis protocol, Vapotherm for O2 support. He was noted to have intermittent tachycardia suspected to be SVT/sinus tachy. He was started precedex for withdrawal, opiate vs alcohol. He had a GI bleed 05/07. He was intubated on 05/08 for progressive hypoxia, secretions+. A bronchoscopy was done 05/10 and 05/12 -Severe Sepsis with shock; improved -Delirium -Left lower lobe pneumonia, unspec organism -Acute hypoxic respiratory failure, intubated 05/08 -AC -Alcohol withdrawal -SVT -GI bleed suspected - 05/07 -acute blood loss anemia -thrombocytopenia -Cirrhosis -left pleural effusion, exudative in nature; s/p thoracentesis 05/13; s/p Chest tube 05/18 -delirium Bronchoscopy 05/10 and 05/12, TLC 3/5 COPD h/o polysubstance abuse Plan: Neuro- -sedated; on propofol/fentnayl ; decrease to assess neuro status, has not awoken to follow commands -cont seroquel 25mg po qhs -h/o significant drinking ; cont thiamine 100mg po daily; ativan 0.5mg iv q8h prn -PRN oxycodone for pain -hyperammonemia 50s; cont lactulose tid and cont rifaxamin -Delirium prec CVS- -shock, on levo and vaso; unclear etiology, suspect vasodilatory from sedation; no clear overt sepsis -SVT ; spontaneously broke; hold metoprolol 50mg bid -overall gross edema+; good urine output; lasix 20mg iv daily as needed; noted rising Na -hg better; s/p 2 prbc yesterday; no clear source -Maintain MAP>65 Resp- -on PC mode 40% -cxr 05/18 - left CT+, improved aeration -CT chest 05/19 pending read -Left CT placed for exudative and recurrent effusion+; maintain low intermittent suction for next 24 hours, then gravity drainage -rhonchi/rhales improved; hold off further steroids -repeat sputum culture; suspect this is from necrosis and bronchiectasis? -?aspiration, vs poor clearance/cough -left exudative effusion, culture negative; left thoracentesis 05/13 with 1900+ out -bronchoscopy 05/12 with more plugs cleared -Wean Fio2 to keep sat>92% -Bronchodilators PRN, Aspiration prec, Pulmonary Toilet ID- afebrile; wbc [id number], stable , nontoxic appearing -sputum culture 05/10 negative; yeast only -blood cxs neg 05/10, 05/08 -left pleural fluid with neutrophils, low glucose, exudative; but no bacteria on stain; so far neg growth; left CT placed 05/18 -CT chest 05/19 - pending read for possible bronchiectasis -sputum cx again today -has been on vanco/ctx 05/05-05/07, then vanco/zosyn 05/07-05/11, vanco/cefepime 05/11, d/ c'ed 05/13 -monitor off abx for now GI- -no further bleeding from GI seen; cont ppi bid -hg stable today; check hg later today; s/p 2 prbc 05/18 -TF - start jevity 1.2 NGT -US of abdomen - POC by me showing mild ascites only -hyperammonemia - cont lactulose tid and rifaxamin; diarrhea+ -GI prophylaxis Renal- -AC; Cr stable 1.2; good urine output -gross edema+; good urine output; cont lasix 20mg IV daily x1 tomorrow and today , then re-eval -hypernatremia; improved -maloney+ -strict I/O, replete to keep K>4, Mg>2 -maloney as indicated Heme- -anemia, suspect GI loss?; no clear source; hg better today; observe ; s/p 2 prbc 05/18 -thrombocytopenia improved Endo-Maintain BG<200, insulin protocol as needed Musculsk- pressure ulcer prophylaxis. bedrest Wounds- none Nutrition- TF jevity DVT prophylaxis: heparin sq GI prophylaxis: ppi Central Line: yes 05/09 Arterial Line: yes right fem, 05/18 Maloney Cathetor: yes Left Chest tube 05/18 Disposition: Patient requires Critical Care/ICU for respiratory failure, encephalopathy, sepsis Patient clinical status: guarded Code Status: full code discussed plan with family at bedside, answered all questions and reviewed labs/ imaging Total Critical Care time is 40 minutes, excluding procedures/teaching Kevin Bonilla MD [employer]ill Sharpener Operator (Electronically Signed)
[2019-05-20] MEDS: QUEtiapine TAB* 25 MG PO SCH (20:50)
[2019-05-21] MEDS: Chlorhexidine MOUTHWASH 0.12%* 15 ML UDC TOPICAL SCH ×7 (01:18→23:45)
[2019-05-21] MEDS: Propofol* 100 ML IV SCH ×3 (02:47→23:45)
[2019-05-21] MEDS: Heparin VIAL(*) 5000 UNITS/ML VIAL (FIVE THOUSAND) SUBCUT SCH ×3 (05:40→21:13)
[2019-05-21 06:03] LABS: Hematocrit 27 % (42-52); Mean Corpuscular HGB Conc 33 g/dL (31-36); Mean Corpuscular Hemoglobin 31 pg (27-31); Mean Corpuscular Volume 95 fL (80-94); Mean Platelet Volume 9.2 fL (7.4-10.4); Platelet Count 278 10^3/uL (150-450); Red Blood Count 2.87 10^6 /uL (4.18-5.48); Red Cell Distribution Width 17 % (10-15); White Blood Count 11.9 10^3/uL (3.5-10.8)
[2019-05-21 06:12] LABS: Activated Partial Thrombo Time 27.8 seconds (26.0-38.0); INR 1.1 (0.82-1.09)
[2019-05-21 06:34] LABS: BUN/Creatinine Ratio 32.1 (8-20); Calcium 8.3 mg/dL (8.6-10.3); EGFR African American 86.5 (>60); EGFR Non-African American 71.5 (>60); Magnesium 1.8 mg/dL (1.9-2.7); Phosphorus 3.3 mg/dL (2.5-5.0); Potassium 3.1 mmol/L (3.5-5.0)
[2019-05-21] MEDS: Multivitamins ADULT w/MIN LIQ* 15 ML UDC PO SCH (08:15)
[2019-05-21] MEDS: Thiamine TAB* 100 MG TAB PO SCH (08:15)
[2019-05-21] MEDS: Furosemide IV* 10 MG/ML 2 ML VIAL (20 MG) IV SLOW PU SCH ×2 (08:15→21:13)
[2019-05-21] MEDS: Pantoprazole IV* 40 MG IV SCH (08:15)
[2019-05-21] MEDS: Folic Acid TAB* 1 MG PO SCH (08:15)
[2019-05-21] MEDS: RiFAXimin* 550 MG TAB PO SCH ×2 (08:15→21:13)
[2019-05-21] MEDS: fentaNYL INFUSION 50 MCG/ML* 2,500 MCG/50 ML BAG IV SCH (09:29)
[2019-05-21] MEDS ORDERED: Magnesium Sulfate 2 GM IV* 2 GM/50 ML BAG IVPB ONE (10:50)
[2019-05-21] MEDS ORDERED: Furosemide IV* 10 MG/ML 2 ML VIAL (20 MG) IV SLOW PU ONE (10:57)
[2019-05-21] MEDS ORDERED: Furosemide IV* 10 MG/ML 2 ML VIAL (20 MG) ONE (11:00)
[2019-05-21] MEDS: Potassium Chloride* LIQUID 20 MEQ/15 ML UDC PO SCH ×2 (11:06→15:04)
--- NOTE | 2019-05-21 12:02 | PN ---
Progress Note - Progress Note Date of Service: 05/21/19 Note: Progress Note -- Critical Care 24 hour events/significant events: - Remains sedated and comfortable on current settings - CT chest done yesterday - WBC trending down ROS: ROS unable to be obtained secondary to intubated/sedated Tele: NSR Vitals: Vital Signs 05/20/19 05/20/19 05/20/19 11:30 11:45 12:00 Temperature 97.0 F 97.0 F 97.0 F Pulse Rate 70 71 67 Respiratory 18 Rate O2 Sat by Pulse 100 100 100 Oximetry 05/20/19 05/20/19 05/20/19 12:15 12:30 12:45 Temperature 97.2 F 97.2 F 97.2 F Pulse Rate 111 102 106 Respiratory Rate O2 Sat by Pulse 100 100 100 Oximetry 05/20/19 05/20/19 05/20/19 13:00 13:56 14:00 Temperature 97.3 F 97.2 F 97.2 F Pulse Rate 114 110 97 Respiratory 18 18 Rate O2 Sat by Pulse 100 100 100 Oximetry 05/20/19 05/20/19 05/20/19 14:15 14:30 14:45 Temperature 97.2 F 97.2 F 97.2 F Pulse Rate 98 88 107 Respiratory Rate O2 Sat by Pulse 100 100 100 Oximetry 05/20/19 05/20/19 05/20/19 15:00 15:15 15:30 Temperature 97.2 F 97.3 F 97.3 F Pulse Rate 103 89 63 Respiratory 18 Rate O2 Sat by Pulse 100 100 100 Oximetry 05/20/19 05/20/19 05/20/19 15:33 15:45 16:00 Temperature 97.3 F 97.3 F Pulse Rate 64 64 Respiratory 18 Rate O2 Sat by Pulse 100 100 Oximetry 05/20/19 05/20/19 05/20/19 16:15 16:30 16:45 Temperature 97.3 F 97.5 F 97.5 F Pulse Rate 63 62 60 Respiratory Rate O2 Sat by Pulse 100 100 100 Oximetry 05/20/19 05/20/19 05/20/19 17:00 17:15 17:30 Temperature 97.5 F 97.7 F 97.7 F Pulse Rate 64 61 65 Respiratory 18 Rate O2 Sat by Pulse 100 100 100 Oximetry 03/05/20/19 05/20/19 17:45 17:58 18:00 Temperature 97.9 F 97.9 F Pulse Rate 67 63 Respiratory 18 Rate O2 Sat by Pulse 100 100 Oximetry 05/20/19 05/20/19 05/20/19 18:15 18:30 18:45 Temperature 97.9 F 98.1 F 98.1 F Pulse Rate 62 63 65 Respiratory Rate O2 Sat by Pulse 100 100 100 Oximetry 05/20/19 05/20/19 05/20/19 19:00 19:15 19:30 Temperature 98.1 F 98.2 F 98.2 F Pulse Rate 66 68 64 Respiratory 23 Rate O2 Sat by Pulse 100 100 100 Oximetry 05/20/19 05/20/19 05/20/19 19:32 19:45 20:00 Temperature 98.2 F 98.2 F Pulse Rate 67 66 64 Respiratory 18 23 Rate O2 Sat by Pulse 100 100 100 Oximetry 05/20/19 05/20/19 05/20/19 20:15 20:30 20:45 Temperature 98.4 F 98.4 F 98.4 F Pulse Rate 70 71 68 Respiratory Rate O2 Sat by Pulse 100 100 100 Oximetry 05/20/19 05/20/19 05/20/19 21:00 21:15 21:30 Temperature 98.4 F 98.4 F 98.4 F Pulse Rate 67 67 67 Respiratory 23 Rate O2 Sat by Pulse 99 99 99 Oximetry 05/20/19 05/20/19 05/20/19 21:45 22:00 22:04 Temperature 98.4 F 98.4 F 98.6 F Pulse Rate 68 67 69 Respiratory 23 Rate O2 Sat by Pulse 99 98 99 Oximetry 05/20/19 05/20/19 05/20/19 22:15 22:30 22:45 Temperature 98.6 F 98.6 F 98.8 F Pulse Rate 67 69 68 Respiratory Rate O2 Sat by Pulse 99 100 100 Oximetry 05/20/19 05/20/19 05/20/19 23:00 23:15 23:30 Temperature 98.8 F 96.8 F 98.6 F Pulse Rate 74 77 69 Respiratory 24 Rate O2 Sat by Pulse 100 99 100 Oximetry 05/20/19 05/21/19 05/21/19 23:45 00:00 00:15 Temperature 98.8 F 98.8 F 98.8 F Pulse Rate 70 67 71 Respiratory 23 Rate O2 Sat by Pulse 100 100 100 Oximetry 05/21/19 05/21/19 05/21/19 00:30 00:45 01:00 Temperature 98.8 F 98.8 F 98.8 F Pulse Rate 72 71 77 Respiratory 23 Rate O2 Sat by Pulse 100 100 100 Oximetry 05/21/19 05/21/19 05/21/19 01:15 01:30 01:45 Temperature 99.0 F 99.0 F 99.0 F Pulse Rate 80 72 67 Respiratory Rate O2 Sat by Pulse 100 100 100 Oximetry 05/21/19 05/21/19 05/21/19 02:00 02:15 02:30 Temperature 99.0 F 99.0 F 99.0 F Pulse Rate 67 66 69 Respiratory 22 Rate O2 Sat by Pulse 100 100 100 Oximetry 05/21/19 05/21/19 05/21/19 02:45 03:00 03:15 Temperature 99.0 F 98.8 F 98.8 F Pulse Rate 68 77 83 Respiratory 16 Rate O2 Sat by Pulse 100 100 100 Oximetry 05/21/19 05/21/19 05/21/19 03:30 03:45 04:00 Temperature 98.8 F 99.0 F 99.0 F Pulse Rate 86 87 86 Respiratory 18 Rate O2 Sat by Pulse 100 100 100 Oximetry 05/21/19 05/21/19 05/21/19 04:15 04:30 04:45 Temperature 98.8 F 98.8 F 98.8 F Pulse Rate 83 75 73 Respiratory Rate O2 Sat by Pulse 100 99 99 Oximetry 05/21/19 05/21/19 05/21/19 05:00 05:15 05:30 Temperature 98.8 F 98.6 F 98.6 F Pulse Rate 72 74 73 Respiratory 21 Rate O2 Sat by Pulse 100 100 100 Oximetry 05/21/19 05/21/19 05/21/19 05:45 06:00 06:15 Temperature 98.6 F 98.4 F 98.4 F Pulse Rate 80 79 77 Respiratory 24 Rate O2 Sat by Pulse 100 100 100 Oximetry 05/21/19 05/21/19 05/21/19 06:30 06:45 07:00 Temperature 98.2 F 98.2 F 98.2 F Pulse Rate 80 80 87 Respiratory 18 Rate O2 Sat by Pulse 100 100 100 Oximetry 05/21/19 05/21/19 05/21/19 07:15 07:30 07:45 Temperature 98.2 F 98.1 F 98.1 F Pulse Rate 90 94 93 Respiratory Rate O2 Sat by Pulse 100 100 96 Oximetry 05/21/19 05/21/19 05/21/19 08:00 08:15 08:30 Temperature 98.1 F 98.1 F 98.1 F Pulse Rate 92 90 92 Respiratory 18 Rate O2 Sat by Pulse 96 95 96 Oximetry 05/21/19 05/21/19 05/21/19 08:45 09:00 09:15 Temperature 98.1 F 97.9 F 97.7 F Pulse Rate 89 88 Respiratory 20 Rate O2 Sat by Pulse 93 94 Oximetry 05/21/19 05/21/19 05/21/19 09:29 09:30 09:45 Temperature 97.5 F 97.3 F Pulse Rate 85 83 Respiratory 19 Rate O2 Sat by Pulse 96 96 Oximetry 05/21/19 05/21/19 05/21/19 10:00 10:15 10:30 Temperature 97.2 F 97.2 F 97.2 F Pulse Rate 80 81 82 Respiratory 18 Rate O2 Sat by Pulse 96 97 98 Oximetry 05/21/19 05/21/19 10:45 11:00 Temperature 97.2 F 97.3 F Pulse Rate 82 79 Respiratory Rate O2 Sat by Pulse 98 94 Oximetry Intake and Output Last 24 Hours 05/19/19 05/20/19 05/21/19 05/22/19 06:59 06:59 06:59 06:59 Intake Total 279.5 1498.5 1231 Output Total 2145 3928 4010 875 Balance -1865.5 -2429.5 -2779 -875 Weight 174 lb 9.698 oz 173 lb 11.588 oz 168 lb 13.985 oz Intake: Medicated IV 279.5 849.5 859 CC - Propofol/Diprivan 28 394.9 543 Levophed 168 336 231 Precedex 75 11 vasopressin 8.5 107.6 85 Oral 0 0 Tube Feeding 372 Tube Feeding Flush Amount 0 Packed Cells 649 0 Maloney Irrigate Amount 0 Output: LEANN #1 40 Chest Tube #1 420 80 Maloney 2105 2108 2930 875 Liquid Stool 1400 1000 Other 0 Other: Other Amount Description Thoracentesis O2/Vent: PCV 21/5 rate 18, 21% Infusions: Fentanyl, propofol Medications: Acetaminophen (Tylenol Adult Liq*) 650 mg PO Q6H PRN PRN Reason: MILD PAIN or TEMP > 100.4 Last Admin: 05/16/19 17:09 Dose: 650 mg Acetylcysteine (Mucomyst Inhalation Christie*) 400 mg INH [id number] AWAKE PRN PRN Reason: CONGESTION Last Admin: 05/16/19 20:01 Dose: 400 mg Albuterol/Ipratropium (Duoneb (Albuterol 2.5 Mg/Ipratropium 0.5 Mg)) 1 neb INH Q4H PRN PRN Reason: SOB/WHEEZING Last Admin: 05/17/19 20:31 Dose: 1 neb Chlorhexidine Gluconate (Peridex Mouth Wash 0.12%*) 15 ml TOPICAL Q4H [facility] Last Admin: 05/21/19 11:05 Dose: 15 ml Folic Acid (Folvite Tab*) 1 mg PO DAILY [facility] Last Admin: 05/21/19 08:15 Dose: 1 mg Furosemide (Lasix Iv*) 20 mg IV SLOW PU BID [facility] Haloperidol Lactate (Haldol Inj Iv/Im*) 2.5 mg IV SLOW PU Q6H PRN PRN Reason: AGITATION Last Admin: 05/19/19 00:14 Dose: 2.5 mg Heparin Sodium (Porcine) (Heparin Vial(*)) 5,000 units SUBCUT Q8HR [facility] Last Admin: 05/21/19 05:40 Dose: 5,000 units Fentanyl Citrate (Fentanyl Infusion Bag 50 Mcg/Ml 50 Ml) 2,500 mcg in 50 mls @ 1 mls/hr IV Q72H [facility]; Protocol Last Admin: 05/21/19 09:29 Dose: 1 mls/hr Magnesium Sulfate (Magnesium Sulfate 2 Gm Iv*) 2 gm in 50 mls @ 50 mls/hr IVPB ONCE ONE Stop: 05/21/19 11:49 Last Admin: 05/21/19 11:05 Dose: 50 mls/hr Propofol (Diprivan*) 100 mls @ 9.504 mls/hr IV .PER PROTOCOL [facility]; Protocol Lactulose (Lactulose*) 30 ml PO TID [facility] Last Admin: 05/21/19 08:15 Dose: 30 ml Lidocaine HCl (Lidocaine 2% Jelly*) 1 applic TOPICAL Q6H PRN PRN Reason: SKIN IRRITATION Lorazepam (Ativan Inj*) 0.5 mg IV PUSH Q8H PRN PRN Reason: ANXIETY Miscellaneous (Ativan Pyxis Colon) 1 ea N/A .ATIVAN IV COLON PRN PRN Reason: PYXIS COLON Multivitamins (Theragran W/Minerals Liq*) 15 ml PO DAILY [facility] Last Admin: 05/21/19 08:15 Dose: 15 ml Oxycodone HCl (Roxycodone Tab*) 5 mg PO Q4H PRN PRN Reason: PAIN - SEVERE Last Admin: 05/18/19 03:42 Dose: 5 mg Pantoprazole Sodium (Protonix Iv*) 40 mg IV DAILY [facility] Last Admin: 05/21/19 08:15 Dose: 40 mg Potassium Chloride (Potassium Chloride Liquid) 40 meq PO Q4H [facility] Stop: 05/21/19 15:01 Last Admin: 05/21/19 11:06 Dose: 40 meq Quetiapine Fumarate (Seroquel Tab*) 25 mg PO BEDTIME [facility] Last Admin: 05/20/19 20:50 Dose: Not Given Rifaximin (Xifaxan*) 550 mg PO BID [facility] Last Admin: 05/21/19 08:15 Dose: 550 mg Thiamine HCl (Vitamin B-1 Tab*) 100 mg PO DAILY [facility] Last Admin: 05/21/19 08:15 Dose: 100 mg Vitamin A/Vitamin D (Vitamin A & D Oint*) 1 applic TOPICAL Q6H PRN PRN Reason: SKIN IRRITATION Physical Exam: Constitutional: intubated, sedated, no distress, no diaphoresis Head: normocephalic, atraumatic Eyes: no pallor, no icterus ENT: dry mucous membranes Neck: soft, supple CVS: normal rate, regular, no murmur Chest/Resp: bilateral air entry, rhonchi throughout, no rhales, no wheeze, no acc muscle use Abdomen/GI: soft, nontender, mild distension, BS+ Ext/Msk: warm, pulses+, generalized edema, all extremities +3 pitting edema Skin: intact, warm Neuro: intubated, sedated, sedation not paused for exam at this time. Brainstem intact Psych: unable to assess, sedated/intubated Labs: Laboratory Results - last 24 hr 05/19/19 05/21/19 05/21/19 10:36 05:31 05:31 WBC 11.9 H RBC 2.87 L Hgb 9.0 L Hct 27 L MCV 95 H MCH 31 MCHC 33 RDW 17 H Plt Count 278 MPV 9.2 INR (Anticoag Therapy) 1.10 H APTT 27.8 Sodium Potassium Chloride Carbon Dioxide Anion Gap BUN Creatinine Est GFR ( Amer) Est GFR (Non-Af Amer) BUN/Creatinine Ratio Glucose Calcium Phosphorus Magnesium Total Creatine Kinase Crossmatch See Detail 05/21/19 05:31 WBC RBC Hgb Hct MCV MCH MCHC RDW Plt Count MPV INR (Anticoag Therapy) APTT Sodium 147 H Potassium 3.1 L Chloride 119 H Carbon Dioxide 22 Anion Gap 6 BUN 34 H Creatinine 1.06 Est GFR ( Amer) 86.5 Est GFR (Non-Af Amer) 71.5 BUN/Creatinine Ratio 32.1 H Glucose 120 H Calcium 8.3 L Phosphorus 3.3 Magnesium 1.8 L Total Creatine Kinase 21 Crossmatch Imaging: cxr 05/12 - left sided opacification of lower half of lung field, ett above [place] CT chest 05/08 - large left lower lobe consolidation+, small effusion+ cxr 05/15 - left consolidation+, left effusion+ small cxr 05/16 - left sided effusion/consolidation+ US chest 05/16 - left complex effusion+ cxr 05/18 - ett above [place]; left CT in place , left scattered infiltrates but improved CT chest 05/19 - overall improved aeration of lungs, "honeycombing" of the left lower lobe, likley d/t parenchymal destruction secondary to infectious PNA, small bibasilar pleural effusions Assessment: 59y M w/pmhx of polysubstance abuse, opiate use, ETOH abuse, COPD, LUng Cancer s /p right lobectomy; presented to ER 05/05 for cough/sob, hypoxia, left lower lobe pneumonia, started on sepsis protocol, Vapotherm for O2 support. He was noted to have intermittent tachycardia suspected to be SVT/sinus tachy. He was started precedex for withdrawal, opiate vs alcohol. He had a GI bleed 05/07. He was intubated on 05/08 for progressive hypoxia, secretions+. A bronchoscopy was done 05/10 and 05/12 -Severe Sepsis with shock; improved -Delirium -Left lower lobe pneumonia, unspec organism, possibly viral -Acute hypoxic respiratory failure, intubated 05/08 -AC -Alcohol withdrawal -SVT -GI bleed suspected - 05/07 -acute blood loss anemia -thrombocytopenia -Cirrhosis -left pleural effusion, exudative in nature; s/p thoracentesis 05/13; s/p Chest tube 05/18 -delirium Bronchoscopy 05/10 and 05/12, TLC 3/5 COPD h/o polysubstance abuse Plan: Neuro- -sedated; on propofol/fentanyl, decrease to RASS -2. -cont seroquel 25mg po qhs -h/o significant drinking ; cont thiamine 100mg po daily; ativan 0.5mg iv q8h prn -PRN oxycodone for pain -hyperammonemia 50s; cont lactulose tid and cont rifaxamin. Will check ammonia in AM -Delirium prec CVS- -hypotension; resolving. has been off pressors since 299. No clear overt sepsis - No further episodes of tachycardia -overall gross edema+; good urine output with scheduled lasix. Will give additional 20mg now and change to 20mg BID -Maintain MAP>65 Resp- -on PCV mode 21% -cxr 05/18 - left CT+, improved aeration -CT chest 05/19 showed improved aeration but "honeycombing" of the left lung parenchyma. -Left CT placed on 05/18 for exudative and recurrent effusion+; maintain low intermittent suction for next 24 hours, then gravity drainage -repeat sputum culture; suspect this is from necrosis and bronchiectasis? -?aspiration, vs poor clearance/cough -left thoracentesis 05/13 with 1900+ out - Daily PST as tolerated -Wean Fio2 to keep sat>92% -Bronchodilators PRN, Aspiration prec, Pulmonary Toilet ID- afebrile; wbc trending down this AM. -sputum culture 05/10 negative; yeast only -blood cxs neg 05/10, 05/08 -left pleural fluid with neutrophils, low glucose, exudative; but no bacteria on stain; so far neg growth; left CT placed 05/18 -CT chest 05/19 - improved aeration with "honeycombing" of left lung parenchyma -sputum cx again today -has been on vanco/ctx 05/05-05/07, then vanco/zosyn 05/07-05/11, vanco/cefepime 05/11, d/ c'ed 05/13 -monitor off abx for now. possible viral PNA GI- -no further bleeding from GI seen; cont ppi bid -hg stable today -Continue tube feeds -hyperammonemia - cont lactulose tid and rifaxamin; diarrhea+ but slowing down. Check ammonia in AM -GI prophylaxis Renal- -AC; kidney function continues to improve. good urine output -gross edema+; good urine output with lasix. will increase to lasix 20mg BID -hypernatremia: Na trending up. Likely d/t diuresis but will start FWF 200cc q8hr for hydration and see if this improves -maloney+ -strict I/O, replete to keep K>4, Mg>2 Heme- -anemia, suspect GI loss but no clear source, hgb improved -thrombocytopenia improved Endo-Maintain BG<200, insulin protocol as needed Musculsk- pressure ulcer prophylaxis. bedrest for now Wounds- none Nutrition- TF jevity DVT prophylaxis: heparin sq GI prophylaxis: ppi Central Line: yes 05/09 Arterial Line: yes right fem, 05/18- will remove today Maloney Catheter: yes Left Chest tube 05/18 Disposition: Patient requires Critical Care/ICU for respiratory failure, encephalopathy, sepsis Patient clinical status: guarded Code Status: full code Total Critical Care time is 30 minutes
[2019-05-21] MEDS: QUEtiapine TAB* 25 MG PO SCH (21:16)
[2019-05-22] MEDS: Propofol* 100 ML IV SCH ×3 (05:15→19:20)
[2019-05-22] MEDS: Chlorhexidine MOUTHWASH 0.12%* 15 ML UDC TOPICAL SCH ×5 (05:17→21:11)
[2019-05-22] MEDS: Heparin VIAL(*) 5000 UNITS/ML VIAL (FIVE THOUSAND) SUBCUT SCH ×3 (05:17→21:11)
[2019-05-22 05:48] LABS: Hematocrit 28 % (42-52); Hemoglobin 9.2 g/dL (14.0-18.0); Mean Corpuscular HGB Conc 33 g/dL (31-36); Mean Corpuscular Hemoglobin 32 pg (27-31); Mean Corpuscular Volume 97 fL (80-94); Mean Platelet Volume 9.5 fL (7.4-10.4); Platelet Count 227 10^3/uL (150-450); Red Blood Count 2.88 10^6 /uL (4.18-5.48); Red Cell Distribution Width 17 % (10-15); White Blood Count 10.1 10^3/uL (3.5-10.8)
[2019-05-22 05:58] LABS: INR 1.05 (0.82-1.09)
[2019-05-22 06:06] LABS: BUN/Creatinine Ratio 28.6 (8-20); Calcium 8.5 mg/dL (8.6-10.3); EGFR African American 94.7 (>60); EGFR Non-African American 78.3 (>60); Magnesium 1.8 mg/dL (1.9-2.7); Phosphorus 3.3 mg/dL (2.5-5.0); Potassium 3.4 mmol/L (3.5-5.0)
[2019-05-22] MEDS: Multivitamins ADULT w/MIN LIQ* 15 ML UDC PO SCH (08:09)
[2019-05-22] MEDS: Folic Acid TAB* 1 MG PO SCH (08:10)
[2019-05-22] MEDS: Furosemide IV* 10 MG/ML 2 ML VIAL (20 MG) IV SLOW PU SCH ×2 (08:10→21:11)
[2019-05-22] MEDS: RiFAXimin* 550 MG TAB PO SCH ×2 (08:10→21:11)
[2019-05-22] MEDS: Thiamine TAB* 100 MG TAB PO SCH (08:10)
[2019-05-22] MEDS: Pantoprazole IV* 40 MG IV SCH (08:51)
[2019-05-22] MEDS ORDERED: Magnesium Sulfate 2 GM IV* 2 GM/50 ML BAG IVPB ONE (09:31)
[2019-05-22] MEDS ORDERED: Potassium Chloride* LIQUID 20 MEQ/15 ML UDC PO ONE (09:31)
[2019-05-22] MEDS ORDERED: Magnesium Sulf 4 GM/100 ML IV* 4,000 MG/100 ML BAG IVPB ONE (09:32)
--- NOTE | 2019-05-22 14:08 | PN ---
Progress Note - Progress Note Date of Service: 05/22/19 Note: Progress Note -- Critical Care 24 hour events/significant events: - Remains sedated and comfortable on current settings - Electrolytes replaced yesterday, started FWF for hypernatremia ROS: ROS unable to be obtained secondary to intubated/sedated Tele: NSR Vitals: Vital Signs 05/21/19 05/21/19 05/21/19 14:00 14:15 14:30 Temperature 97.9 F 98.1 F 98.1 F Pulse Rate 79 82 83 Respiratory 18 Rate Blood Pressure (mmHg) O2 Sat by Pulse 92 92 93 Oximetry 05/21/19 05/21/19 05/21/19 14:45 15:00 15:15 Temperature 98.2 F 98.4 F 98.4 F Pulse Rate 83 88 93 Respiratory 23 Rate Blood Pressure (mmHg) O2 Sat by Pulse 92 92 100 Oximetry 05/21/19 05/21/19 05/21/19 15:18 15:30 15:36 Temperature 98.4 F 98.4 F 98.4 F Pulse Rate 86 91 88 Respiratory Rate Blood Pressure 122/69 127/69 (mmHg) O2 Sat by Pulse 100 94 95 Oximetry 05/21/19 05/21/19 05/21/19 15:45 16:00 16:09 Temperature 98.4 F 98.4 F 98.4 F Pulse Rate 84 83 84 Respiratory 19 Rate Blood Pressure 110/61 110/61 (mmHg) O2 Sat by Pulse 94 93 93 Oximetry 05/21/19 05/21/19 05/21/19 16:15 16:30 16:45 Temperature 98.4 F 98.4 F 98.2 F Pulse Rate 92 92 94 Respiratory Rate Blood Pressure 120/67 (mmHg) O2 Sat by Pulse 94 95 94 Oximetry 05/21/19 05/21/19 05/21/19 16:48 17:00 17:15 Temperature 98.2 F 98.2 F Pulse Rate 86 94 Respiratory 20 18 Rate Blood Pressure 116/65 (mmHg) O2 Sat by Pulse 95 93 Oximetry 05/21/19 05/21/19 05/21/19 17:30 17:45 18:00 Temperature 98.2 F 98.2 F 98.2 F Pulse Rate 90 99 91 Respiratory 18 Rate Blood Pressure 149/77 134/72 (mmHg) O2 Sat by Pulse 100 93 97 Oximetry 05/21/19 05/21/19 05/21/19 18:30 19:00 19:30 Temperature 98.2 F 98.1 F 97.9 F Pulse Rate 85 80 79 Respiratory 19 Rate Blood Pressure 106/56 105/57 106/54 (mmHg) O2 Sat by Pulse 98 99 99 Oximetry 05/21/19 05/21/19 05/21/19 19:52 20:00 20:30 Temperature 97.7 F 97.5 F Pulse Rate 84 80 82 Respiratory 18 18 Rate Blood Pressure 126/71 139/78 (mmHg) O2 Sat by Pulse 100 99 99 Oximetry 05/21/19 05/21/19 05/21/19 21:00 21:30 22:00 Temperature 97.3 F 97.2 F 96.8 F Pulse Rate 85 83 76 Respiratory 18 18 Rate Blood Pressure 146/81 145/79 134/73 (mmHg) O2 Sat by Pulse 99 99 99 Oximetry 05/21/19 05/21/19 05/21/19 22:30 23:00 23:30 Temperature 96.8 F 96.8 F 97.0 F Pulse Rate 74 77 72 Respiratory 18 Rate Blood Pressure 136/74 138/75 118/68 (mmHg) O2 Sat by Pulse 100 100 99 Oximetry 05/22/19 05/22/19 05/22/19 00:00 00:30 01:00 Temperature 97.0 F 97.2 F 97.2 F Pulse Rate 77 75 80 Respiratory 19 19 Rate Blood Pressure 128/70 123/69 137/76 (mmHg) O2 Sat by Pulse 98 97 98 Oximetry 05/22/19 05/22/19 05/22/19 01:30 02:00 02:30 Temperature 97.3 F 97.3 F 97.5 F Pulse Rate 82 85 78 Respiratory 20 Rate Blood Pressure 127/71 131/75 120/69 (mmHg) O2 Sat by Pulse 98 98 98 Oximetry 05/22/19 05/22/19 05/22/19 03:00 03:01 03:30 Temperature 97.5 F 97.2 F Pulse Rate 85 91 Respiratory 25 Rate Blood Pressure 150/81 124/67 (mmHg) O2 Sat by Pulse 100 97 Oximetry 05/22/19 05/22/19 05/22/19 04:00 04:30 05:00 Temperature 97.2 F 97.2 F 97.3 F Pulse Rate 91 86 79 Respiratory 25 18 Rate Blood Pressure 131/71 125/69 124/65 (mmHg) O2 Sat by Pulse 95 96 97 Oximetry 05/22/19 05/22/19 05/22/19 05:30 05:56 06:00 Temperature 97.3 F 97.5 F Pulse Rate 83 83 Respiratory 23 Rate Blood Pressure 136/75 130/70 (mmHg) O2 Sat by Pulse 97 98 Oximetry 05/22/19 05/22/19 05/22/19 06:30 06:46 07:00 Temperature 97.7 F 97.7 F 97.9 F Pulse Rate 82 83 78 Respiratory 20 Rate Blood Pressure 119/67 115/67 (mmHg) O2 Sat by Pulse 99 99 99 Oximetry 05/22/19 05/22/19 05/22/19 07:30 08:00 08:30 Temperature 98.1 F 98.1 F 98.2 F Pulse Rate 76 77 86 Respiratory 18 Rate Blood Pressure 113/66 124/69 120/69 (mmHg) O2 Sat by Pulse 99 99 99 Oximetry 05/22/19 05/22/19 05/22/19 09:00 09:30 10:00 Temperature 98.4 F 98.6 F 98.6 F Pulse Rate 80 85 81 Respiratory 18 14 Rate Blood Pressure 127/71 129/73 123/69 (mmHg) O2 Sat by Pulse 99 99 99 Oximetry 05/22/19 05/22/19 05/22/19 10:30 11:00 11:30 Temperature 98.8 F 99.0 F 99.1 F Pulse Rate 90 93 93 Respiratory 14 Rate Blood Pressure 132/75 127/69 143/76 (mmHg) O2 Sat by Pulse 99 98 98 Oximetry 05/22/19 05/22/19 05/22/19 12:00 12:30 13:00 Temperature 99.3 F 99.1 F 99.1 F Pulse Rate 95 100 102 Respiratory 20 30 Rate Blood Pressure 155/82 149/82 173/87 (mmHg) O2 Sat by Pulse 99 97 82 Oximetry 05/22/19 13:30 Temperature 99.1 F Pulse Rate 107 Respiratory Rate Blood Pressure 150/84 (mmHg) O2 Sat by Pulse 92 Oximetry Intake and Output Last 24 Hours 05/20/19 05/21/19 05/22/19 05/23/19 06:59 06:59 06:59 06:59 Intake Total 1498.5 1231 1872.3 Output Total 3928 4010 4295 703 Balance -2429.5 -2779 -2422.7 -703 Weight 173 lb 11.588 oz 170 lb 1.92 oz Intake: IV Fluids 85 NS (0.9%) 85 IVPB 65 Magnesium sulfate 65 Medicated IV 849.5 859 275.3 CC - Propofol/Diprivan 394.9 543 275.3 Levophed 336 231 Precedex 11 vasopressin 107.6 85 Oral 0 Tube Feeding 372 1022 Tube Feeding Flush Amount 0 425 Packed Cells 649 0 Maloney Irrigate Amount 0 Output: Chest Tube #1 420 80 60 20 Maloney 2108 2930 3235 683 Liquid Stool 1400 1000 1000 Other 0 Other: Other Amount Description Thoracentesis O2/Vent: PCV 21/5 rate 18, 21%, PST Infusions: Fentanyl, propofol Medication Acetaminophen (Tylenol Adult Liq*) 650 mg PO Q6H PRN PRN Reason: MILD PAIN or TEMP > 100.4 Last Admin: 05/16/19 17:09 Dose: 650 mg Acetylcysteine (Mucomyst Inhalation Christie*) 400 mg INH [id number] AWAKE PRN PRN Reason: CONGESTION Last Admin: 05/16/19 20:01 Dose: 400 mg Albuterol/Ipratropium (Duoneb (Albuterol 2.5 Mg/Ipratropium 0.5 Mg)) 1 neb INH Q4H PRN PRN Reason: SOB/WHEEZING Last Admin: 05/17/19 20:31 Dose: 1 neb Chlorhexidine Gluconate (Peridex Mouth Wash 0.12%*) 15 ml TOPICAL Q4H DOLLY Last Admin: 05/22/19 09:58 Dose: 15 ml Folic Acid (Folvite Tab*) 1 mg PO DAILY DOLLY Last Admin: 05/22/19 08:10 Dose: 1 mg Furosemide (Lasix Iv*) 20 mg IV SLOW PU BID DOLLY Last Admin: 05/22/19 08:10 Dose: 20 mg Haloperidol Lactate (Haldol Inj Iv/Im*) 2.5 mg IV SLOW PU Q6H PRN PRN Reason: AGITATION Last Admin: 05/19/19 00:14 Dose: 2.5 mg Heparin Sodium (Porcine) (Heparin Vial(*)) 5,000 units SUBCUT Q8HR [facility] Last Admin: 05/22/19 05:17 Dose: 5,000 units Fentanyl Citrate (Fentanyl Infusion Bag 50 Mcg/Ml 50 Ml) 2,500 mcg in 50 mls @ 1 mls/hr IV Q72H [facility]; Protocol Last Admin: 05/21/19 09:29 Dose: 1 mls/hr Propofol (Diprivan*) 100 mls @ 9.504 mls/hr IV .PER PROTOCOL [facility]; Protocol Last Admin: 05/22/19 13:14 Dose: 10 mls/hr Lactulose (Lactulose*) 30 ml PO TID [facility] Last Admin: 05/22/19 08:09 Dose: 30 ml Lidocaine HCl (Lidocaine 2% Jelly*) 1 applic TOPICAL Q6H PRN PRN Reason: SKIN IRRITATION Lorazepam (Ativan Inj*) 0.5 mg IV PUSH Q8H PRN PRN Reason: ANXIETY Miscellaneous (Ativan Pyxis Colon) 1 ea N/A .ATIVAN IV COLON PRN PRN Reason: PYXIS COLON Multivitamins (Theragran W/Minerals Liq*) 15 ml PO DAILY [facility] Last Admin: 05/22/19 08:09 Dose: 15 ml Oxycodone HCl (Roxycodone Tab*) 5 mg PO Q4H PRN PRN Reason: PAIN - SEVERE Last Admin: 05/18/19 03:42 Dose: 5 mg Pantoprazole Sodium (Protonix Iv*) 40 mg IV DAILY [facility] Last Admin: 05/22/19 08:51 Dose: 40 mg Quetiapine Fumarate (Seroquel Tab*) 25 mg PO BEDTIME [facility] Last Admin: 05/21/19 21:16 Dose: Not Given Rifaximin (Xifaxan*) 550 mg PO BID [facility] Last Admin: 05/22/19 08:10 Dose: 550 mg Thiamine HCl (Vitamin B-1 Tab*) 100 mg PO DAILY [facility] Last Admin: 05/22/19 08:10 Dose: 100 mg Vitamin A/Vitamin D (Vitamin A & D Oint*) 1 applic TOPICAL Q6H PRN PRN Reason: SKIN IRRITATION Physical Exam: Constitutional: intubated, sedated, no distress, no diaphoresis Head: normocephalic, atraumatic Eyes: no pallor, no icterus ENT: dry mucous membranes Neck: soft, supple CVS: normal rate, regular, no murmur Chest/Resp: bilateral air entry, rhonchi throughout, no rhales, no wheeze, no acc muscle use Abdomen/GI: soft, nontender, mild distension, BS+ Ext/Msk: warm, pulses+, generalized edema, all extremities +1 pitting edema Skin: intact, warm Neuro: intubated, sedated, sedation paused for exam. Attempts to open eyes, does not follow commands. Placed on pressure support and doing well. Labs: Laboratory Results - last 24 hr 05/22/19 05/22/19 05/22/19 05:30 05:30 05:30 WBC 10.1 RBC 2.88 L Hgb 9.2 L Hct 28 L MCV 97 H MCH 32 H MCHC 33 RDW 17 H Plt Count 227 MPV 9.5 INR (Anticoag Therapy) Sodium 150 H Potassium 3.4 L Chloride 120 H Carbon Dioxide 26 Anion Gap 4 BUN 28 H Creatinine 0.98 Est GFR ( Amer) 94.7 Est GFR (Non-Af Amer) 78.3 BUN/Creatinine Ratio 28.6 H Glucose 119 H Calcium 8.5 L Phosphorus 3.3 Magnesium 1.8 L Ammonia 46 05/22/19 05:30 WBC RBC Hgb Hct MCV MCH MCHC RDW Plt Count MPV INR (Anticoag Therapy) 1.05 Sodium Potassium Chloride Carbon Dioxide Anion Gap BUN Creatinine Est GFR ( Amer) Est GFR (Non-Af Amer) BUN/Creatinine Ratio Glucose Calcium Phosphorus Magnesium Ammonia Imaging: cxr 05/12 - left sided opacification of lower half of lung field, ett above [place] CT chest 05/08 - large left lower lobe consolidation+, small effusion+ cxr 05/15 - left consolidation+, left effusion+ small cxr 05/16 - left sided effusion/consolidation+ US chest 05/16 - left complex effusion+ cxr 05/18 - ett above [place]; left CT in place , left scattered infiltrates but improved CT chest 05/19 - overall improved aeration of lungs, "honeycombing" of the left lower lobe, likley d/t parenchymal destruction secondary to infectious PNA, small bibasilar pleural effusions cxr 05/21: Small left pleural effusion with left basilar atelectasis vs consolidation Assessment: 59y M w/pmhx of polysubstance abuse, opiate use, ETOH abuse, COPD, LUng Cancer s /p right lobectomy; presented to ER 05/05 for cough/sob, hypoxia, left lower lobe pneumonia, started on sepsis protocol, Vapotherm for O2 support. He was noted to have intermittent tachycardia suspected to be SVT/sinus tachy. He was started precedex for withdrawal, opiate vs alcohol. He had a GI bleed 05/07. He was intubated on 05/08 for progressive hypoxia, secretions+. A bronchoscopy was done 05/10 and 05/12 -Delirium -Left lower lobe pneumonia, unspec organism, possibly viral -Acute hypoxic respiratory failure, intubated 05/08, extubated 05/14, and reintubated 05/18 -acute blood loss anemia -Cirrhosis -left pleural effusion, exudative in nature; s/p thoracentesis 05/13; s/p Chest tube 05/18 - Bronchoscopy 05/10 and 05/12, TLC 05/09 - COPD - h/o polysubstance abuse Plan: Neuro- -sedated; on propofol/fentanyl, decrease to RASS -2. Minimize sedation, patient will need to be able to tolerate pressure support -cont seroquel 25mg po qhs -h/o significant drinking ; cont thiamine 100mg po daily, multivitamins -hyperammonemia: resolved with current regimen -Delirium prec CVS- -No active issues - No further episodes of tachycardia -overall gross edema+; good urine output with scheduled lasix. Continue 20mg BID -Maintain MAP>65 Resp- -on PCV. Daily pressure support trials as tolerated. Resting settings at night -cxr 05/18 - left CT+, improved aeration -CT chest 05/19 showed improved aeration but "honeycombing" of the left lung parenchyma. -Left CT placed on 05/18 for exudative and recurrent effusion. Currently to water seal -repeat sputum culture; suspect this is from necrosis and bronchiectasis? -Wean Fio2 to keep sat>92% -Bronchodilators PRN, Aspiration prec, Pulmonary Toilet ID- afebrile -CT chest 05/19 - improved aeration with "honeycombing" of left lung parenchyma -has been on vanco/ctx 05/05-05/07, then vanco/zosyn 05/07-05/11, vanco/cefepime 05/11, d/ c'ed 05/13 -monitor off abx for now. possible viral PNA GI- - Continue PPI daily -Continue tube feeds -hyperammonemia: improved with current regimen -GI prophylaxis Renal- -AC; resolved. -gross edema+; good urine output with lasix, continue 20mg BID -hypernatremia: Na trending up. Likely d/t diuresis. Na trending up. Increased to 200cc q6hr. Recheck @ 1500 -maloney+ -strict I/O, replete to keep K>4, Mg>2 Heme- -anemia: improved. H/H stable Endo-Maintain BG<200, insulin protocol as needed Musculsk- pressure ulcer prophylaxis. bedrest for now Wounds- none Nutrition- TF jevity DVT prophylaxis: heparin sq GI prophylaxis: ppi Central Line: yes 05/09 Maloney Catheter: yes Left Chest tube 05/18 Disposition: Patient requires Critical Care/ICU for respiratory failure, encephalopathy Patient clinical status: stable Code Status: full code Total Critical Care time is 30 minutes
[2019-05-22 15:37] LABS: BUN/Creatinine Ratio 26.5 (8-20); Calcium 8.7 mg/dL (8.6-10.3); EGFR African American 94.7 (>60); EGFR Non-African American 78.3 (>60); Potassium 3.8 mmol/L (3.5-5.0)
--- NOTE | 2019-05-22 17:09 | CONSULT ---
Subjective Date of Service: 05/22/19 Interval History: Mr. Alcaraz is a 59 yo male with PMH significant for COPD, lung cancer s/p right upper lobectomy, hx tobacco abuse, and hx multiple traumas after a fall in 2017; who presented to the emergency room with complaints of cough, chills, and progressive shortness of breath. He was admitted to the hospital for left lower lobe PNA severe sepsis, and acute hypoxic respiratory failure. He required intubation for his respiratory failure and continues to be intubated. According to NSG documentation during his hospitalization, he was noted to have skin breakdown on the sacrum. Initially noted to have redness and shearing on , followed by unblanchable purplish discoloration to the coccyx on 05/16, then then open area to the coccyx on 05/18. NSG staff have applied a Optifoam to the area. Patient seen and examined at bedside. Family History: Unchanged from Admission Social History: Unchanged from Admission Past Medical History: Unchanged from Admission Review of Systems - Measurements Intake and Output: Intake and Output Last 24 Hours 05/20/19 05/21/19 05/22/19 05/23/19 06:59 06:59 06:59 06:59 Intake Total 1498.5 1231 1872.3 834.9 Output Total 3928 4010 4295 878 Balance -2429.5 -2779 -2422.7 -43.1 Weight 173 lb 11.588 oz 170 lb 1.92 oz Intake: IV Fluids 85 10 MAG sulfate 10 NS (0.9%) 85 IVPB 65 105 MAG sulfate 105 Magnesium sulfate 65 Medicated IV 849.5 859 275.3 85.9 CC - Propofol/Diprivan 394.9 543 275.3 85.9 Levophed 336 231 Precedex 11 vasopressin 107.6 85 Oral 0 Tube Feeding 372 1022 354 Tube Feeding Flush Amount 0 425 200 Packed Cells 649 0 NG Tube Irrigate Amount 80 Hilton Irrigate Amount 0 Output: Chest Tube #1 420 80 60 20 Hilton 2108 2930 3235 858 Liquid Stool 1400 1000 1000 Other 0 Other: Other Amount Description Thoracentesis - Review of Systems General Comments: Unable to perform ROS, Pt is sedated and intubated. Objective Active Medications: Acetaminophen (Tylenol Adult Liq*) 650 mg PO Q6H PRN Reason: MILD PAIN or TEMP > 100.4 Acetylcysteine (Mucomyst Inhalation Christie*) 400 mg INH [id number] AWAKE PRN Reason: CONGESTION Albuterol/Ipratropium (Duoneb (Albuterol 2.5 Mg/Ipratropium 0.5 Mg)) 1 neb INH Q4H PRN Reason: SOB/WHEEZING Chlorhexidine Gluconate (Peridex Mouth Wash 0.12%*) 15 ml TOPICAL Q4H DO[facility] Folic Acid (Folvite Tab*) 1 mg PO DAILY DOLLY Furosemide (Lasix Iv*) 20 mg IV SLOW PU BID [facility] Haloperidol Lactate (Haldol Inj Iv/Im*) 2.5 mg IV SLOW PU Q6H PRNReason: AGITATION Heparin Sodium (Porcine) (Heparin Vial(*)) 5,000 units SUBCUT Q8HR [facility] Fentanyl Citrate (Fentanyl Infusion Bag 50 Mcg/Ml 50 Ml) 2,500 mcg in 50 mls @ 1 mls/hr IV Q72H [facility]; Protocol Propofol (Diprivan*) 100 mls @ 9.504 mls/hr IV .PER PROTOCOL [facility]; Protocol Lactulose (Lactulose*) 30 ml PO TID [facility] Lidocaine HCl (Lidocaine 2% Jelly*) 1 applic TOPICAL Q6H PRN Reason: SKIN IRRITATION Multivitamins (Theragran W/Minerals Liq*) 15 ml PO DAILY [facility] Pantoprazole Sodium (Protonix Iv*) 40 mg IV DAILY [facility] Quetiapine Fumarate (Seroquel Tab*) 25 mg PO BEDTIME [facility] Rifaximin (Xifaxan*) 550 mg PO BID [facility] Thiamine HCl (Vitamin B-1 Tab*) 100 mg PO DAILY [facility] Vitamin A/Vitamin D (Vitamin A & D Oint*) 1 applic TOPICAL Q6H PRN Reason: SKIN IRRITATION Vital Signs 05/22/19 05/22/19 05/22/19 14:00 14:30 15:00 Temperature 99.1 F 99.3 F 99.3 F Pulse Rate 113 108 105 Respiratory 28 29 Rate Blood Pressure 162/83 141/81 143/84 (mmHg) O2 Sat by Pulse 93 94 96 Oximetry Oxygen Devices in Use Now: Endotracheal Tube, Mechanical Ventilator Appearance: NAD, sitting up in bed Ears/Nose/Mouth/Throat: Mucous Membranes Moist Respiratory: Symmetrical Chest Expansion and Respiratory Effort Skin: - - See skin note below Neurological: - - Sedated Nutrition: - - Tube feeding - Nutrition: Malnutrition Diagnosis/Plan Malnutrition Assessment by Registered Dietitian: Malnutrition Assessment Clinical Characteristics Acute,Severe Malnutrition Assessment: - [id number] wasting (temporal, Criteria clavicular, ribs) - po intake < 50% EEE x > 5 days Malnutrition Assessment: 1. suggest Jevity 1.2, beginning 25ml/hr, GOAL Interventions 65ml/hr (via OGT) 2. monitor closely for s/sx refeeding syndrome (electrolytes, edema) 3. monitor electrolytes at least daily; replace as appropriate per MD orders 4. follow GI tolerance to enteral nutrition support; make adjustments to formula or rate of feeding as appropriate Malnutrition Assessment: Goals 1. slow progression of enteral nutrition suppport; ultimate goal (65ml/hr) to provide adequate nutrition to replete lean body mass without s/sx dehydration or electrolyte imbalance 2. pt will tolerate enteral nutrition support without adverse GI symptoms 3. achieve and maintain serum electrolytes within acceptable ranges; monitored at least daily Result Diagrams: 05/27/19 11:55 05/27/19 06:10 Additional Lab and Data: Above labs were pulled into the note, when edited prior to signing. See below for labs from day of consultation. Laboratory Tests 05/19/19 05/22/19 05/22/19 05:40 05:30 15:13 WBC 10.1 Hgb 9.2 L Hct 28 L Plt Count 227 Sodium 149 H Potassium 3.8 Chloride 120 H Carbon Dioxide 27 BUN 26 H Creatinine 0.98 Glucose 123 H Total Protein 6.6 Albumin 2.1 L Skin Deviation Note - Skin Deviation Findings Sacrum - There is an open area, measures 2.5 cm x 3 cm x 0.1 cm. The wound base is 95% red granulation tissue, with 5 % dark necrotic tissue. There is scant serous drainage. The surrounding skin is intact. Right ischium - There is a superficial open area, measures 1 cm x 1.5 c x > 0.1 cm. The wound base is 100% red epithelial tissue. There is a scant amount of serous drainage. The surrounding skin is intact, with mild erythema. Wound Problem/Plan Assessment: Mr. Alcaraz is a 59 yo male with PMH significant for COPD, lung cancer s/p right upper lobectomy, hx tobacco abuse, and hx multiple traumas after a fall in 2017; who presented to the emergency room with complaints of cough, chills, and progressive shortness of breath. He was admitted to the hospital for left lower lobe PNA severe sepsis, and acute hypoxic respiratory failure. He required intubation for his respiratory failure and continues to be intubated. According to NSG documentation during his hospitalization, he was noted to have skin breakdown on the sacrum. 1. Stage 2 pressure injury to the sacrum and right ischium. Suspect the sacral wound started as a deep tissue injury and opened. Provide incontinence care as needed. Recommend applying barrier cream (orange top) as needed to the buttocks and right ischium. Frequent turning and repositioning. Will add a prealbumin to the last labs. 2. Severe malnutrition. As evidenced by moderate to severe temporal, clavicular , and rib muscular wasting. Protein 6.6 and Albumin 2.1. Will add a prealbumin level to the last labs. He is being followed by Dietary, see below. 3. Nutrition. Recommend meeting minimal nutrition requirements to assist with wound healing (Protein 1.3-1.5 grams/kg per day and Calories 30-35 kcal/kg per day). Tube feeding - Jevity 1.2 4. Code Status. Full Code Status. 5. Disposition. Inpatient, disposition per primary medicine team. TIME SPENT: Time for this wound consultation was 20 minutes and 10 minutes was spent with the patient removing the old dressing; assessing, measuring, and photographing the wounds. Is Patient a Wound Clinic Patient: No Attending: Zeina Velasquez
[2019-05-22] MEDS: QUEtiapine TAB* 25 MG PO SCH (21:12)
[2019-05-23] MEDS: Chlorhexidine MOUTHWASH 0.12%* 15 ML UDC TOPICAL SCH ×6 (01:09→22:31)
[2019-05-23] MEDS: Heparin VIAL(*) 5000 UNITS/ML VIAL (FIVE THOUSAND) SUBCUT SCH ×2 (06:08→13:37)
[2019-05-23 06:42] LABS: BUN/Creatinine Ratio 28.3 (8-20); Calcium 8.2 mg/dL (8.6-10.3); EGFR African American 101.9 (>60); EGFR Non-African American 84.2 (>60); Phosphorus 3.4 mg/dL (2.5-5.0); Potassium 3.6 mmol/L (3.5-5.0)
[2019-05-23] MEDS: Propofol* 100 ML IV SCH (07:31)
[2019-05-23] MEDS: fentaNYL INFUSION 50 MCG/ML* 2,500 MCG/50 ML BAG IV SCH (08:23)
[2019-05-23] MEDS: Multivitamins ADULT w/MIN LIQ* 15 ML UDC PO SCH (08:52)
[2019-05-23] MEDS: Thiamine TAB* 100 MG TAB PO SCH (08:52)
[2019-05-23] MEDS: Folic Acid TAB* 1 MG PO SCH (08:52)
[2019-05-23] MEDS: RiFAXimin* 550 MG TAB PO SCH ×2 (08:52→22:31)
[2019-05-23] MEDS: Furosemide IV* 10 MG/ML 2 ML VIAL (20 MG) IV SLOW PU SCH ×2 (08:55→22:31)
[2019-05-23] MEDS: Pantoprazole IV* 40 MG IV SCH (08:56)
[2019-05-23] MEDS: Dexmedetomidine* 1,000 MCG in NS 0.9% 250 ML* 240 ML IV SCH (09:44)
[2019-05-23] MEDS: hydrALAZINE IV* 20 MG/ML VIAL IV SLOW PU PRN ×2 (13:36→22:52)
[2019-05-23] MEDS: Acetaminophen ADULT LIQ* 650 MG/20.3 ML UDC PO PRN ×2 (13:37→22:52)
--- NOTE | 2019-05-23 15:55 | PN ---
Progress Note - Progress Note Date of Service: 05/23/19 Note: Progress Note -- Critical Care 24 hour events/significant events: - Only did 2hr PS yesterday before getting tired - Continues to diurese ROS: ROS unable to be obtained secondary to intubated/sedated Tele: NSR Vitals: Vital Signs 05/22/19 05/22/19 05/22/19 16:00 16:30 17:00 Temperature 99.3 F 99.3 F 99.3 F Pulse Rate 100 92 90 Respiratory 21 20 Rate Blood Pressure 121/73 112/62 126/68 (mmHg) O2 Sat by Pulse 96 97 98 Oximetry 05/22/19 05/22/19 05/22/19 17:30 18:00 18:30 Temperature 99.1 F 99.3 F 99.1 F Pulse Rate 86 83 90 Respiratory 20 Rate Blood Pressure 119/66 105/62 141/79 (mmHg) O2 Sat by Pulse 99 99 99 Oximetry 05/22/19 05/22/19 05/22/19 19:00 19:30 20:00 Temperature 99.1 F 99.1 F 99.1 F Pulse Rate 84 81 80 Respiratory 20 20 Rate Blood Pressure 135/75 118/66 117/66 (mmHg) O2 Sat by Pulse 98 98 99 Oximetry 05/22/19 05/22/19 05/22/19 20:30 21:00 21:30 Temperature 99.1 F 99.0 F 99.0 F Pulse Rate 77 95 99 Respiratory 26 Rate Blood Pressure 113/67 158/85 144/81 (mmHg) O2 Sat by Pulse 99 99 97 Oximetry 05/22/19 05/22/19 05/22/19 22:00 22:30 23:00 Temperature 99.0 F 99.0 F 99.0 F Pulse Rate 88 82 77 Respiratory 22 21 Rate Blood Pressure 115/72 104/66 98/62 (mmHg) O2 Sat by Pulse 97 97 99 Oximetry 05/22/19 05/23/19 05/23/19 23:30 00:00 00:30 Temperature 98.8 F 99.0 F 99.0 F Pulse Rate 85 92 91 Respiratory 21 Rate Blood Pressure 122/70 132/74 123/74 (mmHg) O2 Sat by Pulse 100 99 98 Oximetry 05/23/19 05/23/19 05/23/19 01:00 01:30 02:00 Temperature 99.1 F 99.1 F 99.1 F Pulse Rate 95 93 91 Respiratory 24 25 Rate Blood Pressure 135/76 128/77 127/75 (mmHg) O2 Sat by Pulse 96 96 97 Oximetry 05/23/19 05/23/19 05/23/19 02:30 03:00 03:30 Temperature 99.3 F 99.3 F 99.5 F Pulse Rate 89 91 89 Respiratory 24 Rate Blood Pressure 124/76 124/73 (mmHg) O2 Sat by Pulse 98 97 97 Oximetry 05/23/19 05/23/19 05/23/19 04:00 04:23 04:30 Temperature 99.1 F 98.8 F 98.8 F Pulse Rate 102 97 96 Respiratory 29 Rate Blood Pressure 158/116 142/82 146/82 (mmHg) O2 Sat by Pulse 96 97 96 Oximetry 05/23/19 05/23/19 05/23/19 05:00 05:30 06:00 Temperature 98.8 F 98.8 F 98.8 F Pulse Rate 89 89 85 Respiratory 22 19 Rate Blood Pressure 134/75 140/81 (mmHg) O2 Sat by Pulse 96 97 98 Oximetry 05/23/19 05/23/19 05/23/19 06:30 07:00 07:30 Temperature 99.0 F 99.1 F 99.1 F Pulse Rate 87 86 85 Respiratory 22 Rate Blood Pressure 144/78 138/80 144/79 (mmHg) O2 Sat by Pulse 98 99 99 Oximetry 05/23/19 05/23/19 05/23/19 08:00 08:30 09:00 Temperature 99.3 F 99.3 F 99.3 F Pulse Rate 83 82 78 Respiratory 22 22 Rate Blood Pressure 135/77 140/78 128/72 (mmHg) O2 Sat by Pulse 98 98 98 Oximetry 05/23/19 05/23/19 05/23/19 09:30 10:00 10:30 Temperature 99.3 F 99.3 F 99.5 F Pulse Rate 78 85 87 Respiratory 19 Rate Blood Pressure 132/74 146/79 145/83 (mmHg) O2 Sat by Pulse 99 99 99 Oximetry 05/23/19 05/23/19 05/23/19 11:00 11:30 12:00 Temperature 99.7 F 99.9 F 100.0 F Pulse Rate 86 85 93 Respiratory 21 30 Rate Blood Pressure 144/81 164/85 152/86 (mmHg) O2 Sat by Pulse 98 100 97 Oximetry 05/23/19 05/23/19 05/23/19 12:30 13:00 13:30 Temperature 100.2 F 100.2 F 100.2 F Pulse Rate 91 92 99 Respiratory 30 Rate Blood Pressure 154/85 170/92 184/102 (mmHg) O2 Sat by Pulse 97 97 97 Oximetry 05/23/19 14:00 Temperature 99.9 F Pulse Rate 98 Respiratory 30 Rate Blood Pressure 187/98 (mmHg) O2 Sat by Pulse 97 Oximetry Intake and Output Last 24 Hours 05/21/19 05/22/19 05/23/19 05/24/19 06:59 06:59 06:59 06:59 Intake Total 1231 1872.3 2413.9 727 Output Total 4010 4295 3033 1225 Balance -2779 -2422.7 -619.1 -498 Weight 170 lb 1.92 oz 157 lb 10.088 oz Intake: IV Fluids 85 166 80 MAG sulfate 10 NS (0.9%) 85 156 80 IVPB 65 115 MAG sulfate 115 Magnesium sulfate 65 Medicated IV 859 275.3 319.9 66 CC - Propofol/Diprivan 543 275.3 319.9 50 Levophed 231 Precedex 16 vasopressin 85 Oral 0 Tube Feeding 372 1022 1108 436 Tube Feeding Flush Amount 0 425 625 25 Packed Cells 0 NG Tube Irrigate Amount 80 120 Maloney Irrigate Amount 0 Output: Chest Tube #1 80 60 40 20 Maloney 2930 3235 2193 1205 Liquid Stool 1000 1000 800 Other 0 Other: Other Amount Description Thoracentesis Vent: PCV 21/5 rate 18, 21% Infusions: Fentanyl, propofol Medication: Acetaminophen (Tylenol Adult Liq*) 650 mg PO Q6H PRN PRN Reason: MILD PAIN or TEMP > 100.4 Last Admin: 05/23/19 13:37 Dose: 650 mg Acetylcysteine (Mucomyst Inhalation Christie*) 400 mg INH [id number] AWAKE PRN PRN Reason: CONGESTION Last Admin: 05/16/19 20:01 Dose: 400 mg Albuterol/Ipratropium (Duoneb (Albuterol 2.5 Mg/Ipratropium 0.5 Mg)) 1 neb INH Q4H PRN PRN Reason: SOB/WHEEZING Last Admin: 05/17/19 20:31 Dose: 1 neb Chlorhexidine Gluconate (Peridex Mouth Wash 0.12%*) 15 ml TOPICAL Q4H [facility] Last Admin: 05/23/19 11:50 Dose: 15 ml Folic Acid (Folvite Tab*) 1 mg PO DAILY [facility] Last Admin: 05/23/19 08:52 Dose: 1 mg Furosemide (Lasix Iv*) 20 mg IV SLOW PU BID [facility] Last Admin: 05/23/19 08:55 Dose: 20 mg Heparin Sodium (Porcine) (Heparin Vial(*)) 5,000 units SUBCUT Q8HR [facility] Last Admin: 05/23/19 13:37 Dose: 5,000 units Hydralazine HCl (Apresoline Iv*) 5 mg IV SLOW PU Q1H PRN PRN Reason: SBP sustained above 160 Last Admin: 05/23/19 13:36 Dose: 5 mg Dexmedetomidine HCl 1,000 mcg/ (Sodium Chloride) 250 mls @ 3.57 mls/hr IV .PER PROTOCOL [facility]; Protocol Last Admin: 05/23/19 09:44 Dose: 3.57 mls/hr Lactulose (Lactulose*) 30 ml PO TID [facility] Last Admin: 05/23/19 13:38 Dose: 30 ml Lidocaine HCl (Lidocaine 2% Jelly*) 1 applic TOPICAL Q6H PRN PRN Reason: SKIN IRRITATION Multivitamins (Theragran W/Minerals Liq*) 15 ml PO DAILY [facility] Last Admin: 05/23/19 08:52 Dose: 15 ml Pantoprazole Sodium (Protonix Iv*) 40 mg IV DAILY [facility] Last Admin: 05/23/19 08:56 Dose: 40 mg Quetiapine Fumarate (Seroquel Tab*) 25 mg PO BEDTIME [facility] Last Admin: 05/22/19 21:12 Dose: 25 mg Rifaximin (Xifaxan*) 550 mg PO BID [facility] Last Admin: 05/23/19 08:52 Dose: 550 mg Thiamine HCl (Vitamin B-1 Tab*) 100 mg PO DAILY [facility] Last Admin: 05/23/19 08:52 Dose: 100 mg Vitamin A/Vitamin D (Vitamin A & D Oint*) 1 applic TOPICAL Q6H PRN PRN Reason: SKIN IRRITATION Physical Exam: Constitutional: intubated, sedated, no distress, no diaphoresis Head: normocephalic, atraumatic Eyes: no pallor, no icterus ENT: dry mucous membranes Neck: soft, supple CVS: normal rate, regular, no murmur Chest/Resp: bilateral air entry, rhonchi throughout, no rhales, no wheeze, no acc muscle use Abdomen/GI: soft, nontender, mild distension, BS+ Ext/Msk: warm, pulses+, generalized edema, all extremities +1 pitting edema Skin: intact, warm Neuro: intubated, sedated, sedation not paused for exam since will be transitioning to precedex. Attempts to open eyes, does not follow commands. Labs: Laboratory Results - last 24 hr 05/22/19 05/23/19 05:30 06:15 Sodium 150 H 149 H Potassium 3.4 L 3.6 Chloride 120 H 119 H Carbon Dioxide 26 26 Anion Gap 4 4 BUN 28 H 26 H Creatinine 0.98 0.92 Est GFR ( Amer) 94.7 101.9 Est GFR (Non-Af Amer) 78.3 84.2 BUN/Creatinine Ratio 28.6 H 28.3 H Glucose 119 H 110 H Calcium 8.5 L 8.2 L Phosphorus 3.3 3.4 Magnesium 1.8 L 2.0 Prealbumin 6 L Imaging: cxr 05/18 - ett above [facility]; left CT in place , left scattered infiltrates but improved CT chest 05/19 - overall improved aeration of lungs, "honeycombing" of the left lower lobe, likley d/t parenchymal destruction secondary to infectious PNA, small bibasilar pleural effusions cxr 05/21: Small left pleural effusion with left basilar atelectasis vs consolidation Assessment: 59y M w/pmhx of polysubstance abuse, opiate use, ETOH abuse, COPD, LUng Cancer s /p right lobectomy; presented to ER 05/05 for cough/sob, hypoxia, left lower lobe pneumonia, started on sepsis protocol, Vapotherm for O2 support. He was noted to have intermittent tachycardia suspected to be SVT/sinus tachy. He was started precedex for withdrawal, opiate vs alcohol. He had a GI bleed 05/07. He was intubated on 05/08 for progressive hypoxia, secretions+. A bronchoscopy was done 05/10 and 05/12 -Delirium -Left lower lobe pneumonia, unspec organism, possibly viral -Acute hypoxic respiratory failure, intubated 05/08, extubated 05/14, and reintubated 05/18 -acute blood loss anemia -Cirrhosis -left pleural effusion, exudative in nature; s/p thoracentesis 05/13; s/p Chest tube 05/18 - Bronchoscopy 05/10 and 05/12, TLC 3/5 - COPD - h/o polysubstance abuse Plan: Neuro- -sedated; on propofol/fentanyl currently. Too lethargic on fentanyl and propofol for PST yesterday so will transition to precedex since he tolerated it last time. -discontinue seroquel since qtc is 529 -h/o significant drinking ; cont thiamine 100mg po daily, multivitamins -hyperammonemia: resolved with current regimen -Delirium prec CVS- - No further episodes of tachycardia - Edema appears improved upper extremities. BLE remains edematous 2+ edema. Also has low grade fevers so will obtain dopplers to r/o DVT - Continue lasix 20mg BID -Maintain MAP>65 as long as SBP<160 Resp- -on PCV. Daily pressure support trials as tolerated. Resting settings at night - Patient only able to tolerate 2hrs of PS yesterday. Will transition to precedex today and attempt PS. If he needs to rest after a few hours of PS, please place back on PS in the evening. Ok to rest overnight. -CT chest 05/19 showed improved aeration but "honeycombing" of the left lung parenchyma. -Left CT placed on 05/18 for exudative and recurrent effusion. Currently to water seal -repeat sputum culture; suspect this is from necrosis and bronchiectasis? -Wean Fio2 to keep sat>92% -Bronchodilators PRN, Aspiration prec, Pulmonary Toilet ID- afebrile -CT chest 05/19 - improved aeration with "honeycombing" of left lung parenchyma -has been on vanco/ctx 05/05-05/07, then vanco/zosyn 05/07-05/11, vanco/cefepime 05/11, d/ c'ed 05/13 -monitor off abx for now. possible viral PNA GI- - Continue PPI daily -Continue tube feeds. will increase to 65cc/hr, suggested in wound care's note, which takes data from nutrition's note -hyperammonemia: improved with current regimen Renal- -AC; resolved. -Edema: continue lasix -hypernatremia: Na trending up. Likely d/t diuresis. Na trending up. Increased to 200cc q6hr. Will continue at current rate -maloney+ -strict I/O, replete to keep K>4, Mg>2 Heme- -anemia: improved. H/H stable Endo-Maintain BG<200, insulin protocol as needed Musculsk- pressure ulcer prophylaxis. bedrest for now Wounds- none Nutrition- TF jevity DVT prophylaxis: heparin sq GI prophylaxis: ppi Central Line: yes 05/09 Maloney Catheter: yes Left Chest tube 05/18 Disposition: Patient requires Critical Care/ICU for respiratory failure, encephalopathy Patient clinical status: stable Code Status: full code Total Critical Care time is 30 minutes
[2019-05-23] MEDS: Enoxaparin(*) 80 MG/0.8 ML SYR SUBCUT SCH (18:45)
[2019-05-23] MEDS ORDERED: SIMETHICONE SUSP* ORALSYR 66.66 MG/ML PO SCH (23:45)
[2019-05-24] MEDS: Simethicone TAB* 80 MG TAB.CHEW PO PRN ×3 (01:00→14:57)
[2019-05-24] MEDS: Chlorhexidine MOUTHWASH 0.12%* 15 ML UDC TOPICAL SCH ×6 (01:00→20:58)
[2019-05-24] MEDS: Dexmedetomidine* 1,000 MCG in NS 0.9% 250 ML* 240 ML IV SCH (04:13)
[2019-05-24] MEDS: Enoxaparin(*) 80 MG/0.8 ML SYR SUBCUT SCH ×2 (05:28→17:59)
[2019-05-24 06:08] LABS: BUN/Creatinine Ratio 28.6 (8-20); Calcium 8.2 mg/dL (8.6-10.3); EGFR African American 103.2 (>60); EGFR Non-African American 85.3 (>60); Magnesium 1.7 mg/dL (1.9-2.7); Phosphorus 3.6 mg/dL (2.5-5.0); Potassium 3.4 mmol/L (3.5-5.0)
[2019-05-24] MEDS: Multivitamins ADULT w/MIN LIQ* 15 ML UDC PO SCH (08:05)
[2019-05-24] MEDS: RiFAXimin* 550 MG TAB PO SCH ×2 (08:06→21:13)
[2019-05-24] MEDS: Thiamine TAB* 100 MG TAB PO SCH (08:06)
[2019-05-24] MEDS: Folic Acid TAB* 1 MG PO SCH (08:06)
[2019-05-24] MEDS: Pantoprazole IV* 40 MG IV SCH (08:12)
[2019-05-24] MEDS: Furosemide IV* 10 MG/ML 2 ML VIAL (20 MG) IV SLOW PU SCH ×2 (08:14→21:13)
[2019-05-24] MEDS: hydrALAZINE IV* 20 MG/ML VIAL IV SLOW PU PRN (11:47)
[2019-05-24] MEDS ORDERED: Potassium Chloride* LIQUID 20 MEQ/15 ML UDC PO ONE (12:50)
--- NOTE | 2019-05-24 13:05 | PN ---
Progress Note - Progress Note Date of Service: 05/24/19 Note: Progress Note -- Critical Care 24 hour events/significant events: - Only did 4hr PS yesterday, improved from the day before ROS: ROS unable to be obtained secondary to intubated/sedated Tele: NSR Vitals: Vital Signs 05/23/19 05/23/19 05/23/19 13:00 13:30 14:00 Temperature 100.2 F 100.2 F 99.9 F Pulse Rate 92 99 98 Respiratory 30 30 Rate Blood Pressure 170/92 184/102 187/98 (mmHg) O2 Sat by Pulse 97 97 97 Oximetry 05/23/19 05/23/19 05/23/19 14:30 15:00 15:30 Temperature 99.7 F 99.5 F 99.5 F Pulse Rate 94 101 103 Respiratory 34 Rate Blood Pressure 161/88 165/90 164/95 (mmHg) O2 Sat by Pulse 97 97 98 Oximetry 05/23/19 05/23/19 05/23/19 16:00 16:30 17:00 Temperature 99.5 F 99.3 F 99.3 F Pulse Rate 95 89 87 Respiratory 28 29 Rate Blood Pressure 149/83 126/73 149/85 (mmHg) O2 Sat by Pulse 98 97 98 Oximetry 05/23/19 05/23/19 05/23/19 17:30 18:00 18:30 Temperature 99.5 F 99.5 F 99.7 F Pulse Rate 77 91 100 Respiratory 26 Rate Blood Pressure 180/91 169/91 186/97 (mmHg) O2 Sat by Pulse 99 99 100 Oximetry 05/23/19 05/23/19 05/23/19 19:00 19:30 20:00 Temperature 99.9 F 100.0 F 100.2 F Pulse Rate 110 95 91 Respiratory 30 27 Rate Blood Pressure 136/80 157/88 (mmHg) O2 Sat by Pulse 99 95 97 Oximetry 05/23/19 05/23/19 05/23/19 20:30 21:00 21:30 Temperature 100.2 F 100.4 F 100.6 F Pulse Rate 91 78 92 Respiratory 22 Rate Blood Pressure 150/86 143/79 176/93 (mmHg) O2 Sat by Pulse 98 99 100 Oximetry 05/23/19 05/23/19 05/23/19 22:00 22:30 23:00 Temperature 100.8 F 100.8 F 100.8 F Pulse Rate 93 90 77 Respiratory 38 23 Rate Blood Pressure 171/96 170/94 126/73 (mmHg) O2 Sat by Pulse 100 100 99 Oximetry 05/23/19 05/23/19 05/23/19 23:23 23:30 23:33 Temperature 100.8 F 100.8 F 100.8 F Pulse Rate 83 88 80 Respiratory Rate Blood Pressure 185/107 172/94 (mmHg) O2 Sat by Pulse 100 100 100 Oximetry 05/23/19 05/24/19 05/24/19 23:53 00:00 00:30 Temperature 100.8 F 100.8 F 100.9 F Pulse Rate 81 74 81 Respiratory 29 Rate Blood Pressure 146/84 142/76 170/84 (mmHg) O2 Sat by Pulse 99 99 100 Oximetry 05/24/19 05/24/19 05/24/19 01:00 01:30 02:00 Temperature 100.8 F 100.8 F 100.6 F Pulse Rate 76 67 65 Respiratory 29 27 Rate Blood Pressure 159/84 98/58 100/64 (mmHg) O2 Sat by Pulse 99 98 98 Oximetry 05/24/19 05/24/19 05/24/19 02:30 03:00 03:30 Temperature 100.4 F 100.2 F 100.0 F Pulse Rate 63 64 62 Respiratory 28 Rate Blood Pressure 103/57 117/64 121/65 (mmHg) O2 Sat by Pulse 97 98 99 Oximetry 05/24/19 05/24/19 05/24/19 04:00 04:30 05:00 Temperature 99.7 F 99.5 F 99.5 F Pulse Rate 66 66 59 Respiratory 24 Rate Blood Pressure 128/69 133/72 148/78 (mmHg) O2 Sat by Pulse 99 99 99 Oximetry 05/24/19 05/24/19 05/24/19 05:30 06:00 06:23 Temperature 99.5 F 99.5 F 99.7 F Pulse Rate 66 66 70 Respiratory 28 Rate Blood Pressure 143/78 143/74 (mmHg) O2 Sat by Pulse 98 96 97 Oximetry 05/24/19 05/24/19 05/24/19 06:30 07:00 07:30 Temperature 99.7 F 99.5 F 99.5 F Pulse Rate 63 64 69 Respiratory 23 Rate Blood Pressure 99/55 116/62 (mmHg) O2 Sat by Pulse 95 96 98 Oximetry 05/24/19 05/24/19 05/24/19 08:00 08:30 09:00 Temperature 99.5 F 99.3 F 99.3 F Pulse Rate 68 65 71 Respiratory 23 21 Rate Blood Pressure 132/67 133/73 137/77 (mmHg) O2 Sat by Pulse 97 98 98 Oximetry 05/24/19 05/24/19 05/24/19 09:30 10:00 10:30 Temperature 99.5 F 99.5 F 99.7 F Pulse Rate 67 77 84 Respiratory 23 Rate Blood Pressure 129/72 163/90 154/85 (mmHg) O2 Sat by Pulse 99 99 96 Oximetry 05/24/19 05/24/19 05/24/19 10:31 11:00 11:01 Temperature 99.7 F 99.7 F 99.7 F Pulse Rate 82 88 86 Respiratory 26 Rate Blood Pressure 166/84 (mmHg) O2 Sat by Pulse 96 96 96 Oximetry 05/24/19 05/24/19 11:30 12:00 Temperature 99.7 F 99.7 F Pulse Rate 101 108 Respiratory 29 Rate Blood Pressure 172/85 157/85 (mmHg) O2 Sat by Pulse 99 94 Oximetry Intake and Output Last 24 Hours 05/22/19 05/23/19 05/24/19 05/25/19 06:59 06:59 06:59 06:59 Intake Total 1872.3 2413.9 2200 Output Total 4295 3033 2682 1030 Balance -2422.7 -619.1 -482 -1030 Weight 170 lb 1.92 oz 157 lb 10.088 oz 157 lb 6.561 oz Intake: IV Fluids 85 166 80 MAG sulfate 10 NS (0.9%) 85 156 80 IVPB 65 115 MAG sulfate 115 Magnesium sulfate 65 Medicated IV 275.3 319.9 332 CC - Propofol/Diprivan 275.3 319.9 50 Precedex 282 Tube Feeding 1022 1108 1418 Tube Feeding Flush Amount 425 625 250 NG Tube Irrigate Amount 80 120 Output: Chest Tube #1 60 40 20 Maloney 3235 7150 2662 1030 Liquid Stool 1000 800 Vent: PCV 21/5 rate 18, 21% Infusions: precedex @ 0.2 Medication: Acetaminophen (Tylenol Adult Liq*) 650 mg PO Q6H PRN PRN Reason: MILD PAIN or TEMP > 100.4 Last Admin: 05/23/19 22:52 Dose: 650 mg Acetylcysteine (Mucomyst Inhalation Christie*) 400 mg INH [id number] AWAKE PRN PRN Reason: CONGESTION Last Admin: 05/16/19 20:01 Dose: 400 mg Albuterol/Ipratropium (Duoneb (Albuterol 2.5 Mg/Ipratropium 0.5 Mg)) 1 neb INH Q4H PRN PRN Reason: SOB/WHEEZING Last Admin: 05/17/19 20:31 Dose: 1 neb Chlorhexidine Gluconate (Peridex Mouth Wash 0.12%*) 15 ml TOPICAL Q4H [facility] Last Admin: 05/24/19 11:47 Dose: 15 ml Enoxaparin Sodium (Lovenox(*)) 70 mg SUBCUT Q12H [facility] Last Admin: 05/24/19 05:28 Dose: 70 mg Folic Acid (Folvite Tab*) 1 mg PO DAILY [facility] Last Admin: 05/24/19 08:06 Dose: 1 mg Furosemide (Lasix Iv*) 20 mg IV SLOW PU BID [facility] Last Admin: 05/24/19 08:14 Dose: 20 mg Hydralazine HCl (Apresoline Iv*) 5 mg IV SLOW PU Q1H PRN PRN Reason: SBP sustained above 160 Last Admin: 05/24/19 11:47 Dose: 5 mg Dexmedetomidine HCl 1,000 mcg/ (Sodium Chloride) 250 mls @ 3.57 mls/hr IV .PER PROTOCOL [facility]; Protocol Last Admin: 05/24/19 04:13 Dose: 23.2 mls/hr Lactulose (Lactulose*) 30 ml PO TID [facility] Last Admin: 05/24/19 08:05 Dose: 30 ml Lidocaine HCl (Lidocaine 2% Jelly*) 1 applic TOPICAL Q6H PRN PRN Reason: SKIN IRRITATION Multivitamins (Theragran W/Minerals Liq*) 15 ml PO DAILY [facility] Last Admin: 05/24/19 08:05 Dose: 15 ml Pantoprazole Sodium (Protonix Iv*) 40 mg IV DAILY [facility] Last Admin: 05/24/19 08:12 Dose: 40 mg Rifaximin (Xifaxan*) 550 mg PO BID [facility] Last Admin: 05/24/19 08:06 Dose: 550 mg Simethicone (Mylicon Tab*) 80 mg PO Q6H PRN PRN Reason: gas Last Admin: 05/24/19 06:25 Dose: 80 mg Thiamine HCl (Vitamin B-1 Tab*) 100 mg PO DAILY [facility] Last Admin: 05/24/19 08:06 Dose: 100 mg Vitamin A/Vitamin D (Vitamin A & D Oint*) 1 applic TOPICAL Q6H PRN PRN Reason: SKIN IRRITATION Physical Exam: Constitutional: intubated, awake, alert, no distress, no diaphoresis Head: normocephalic, atraumatic Eyes: no pallor, no icterus ENT: dry mucous membranes Neck: soft, supple CVS: normal rate, regular, no murmur Chest/Resp: bilateral air entry, rhonchi throughout, no rhales, no wheeze, no acc muscle use Abdomen/GI: soft, nontender, mild distension, BS+ Ext/Msk: warm, pulses+, BLE edema 2+ Skin: intact, warm Neuro: intubated, precedex held. Awake, alert, follows some commands. Able to nod yes and no to some questions. Moves all extremities but minimally. PERRL 3mm Labs: Laboratory Results - last 24 hr 05/24/19 05:40 Sodium 149 H Potassium 3.4 L Chloride 117 H Carbon Dioxide 28 Anion Gap 4 BUN 26 H Creatinine 0.91 Est GFR ( Amer) 103.2 Est GFR (Non-Af Amer) 85.3 BUN/Creatinine Ratio 28.6 H Glucose 146 H Calcium 8.2 L Phosphorus 3.6 Magnesium 1.7 L Imaging: cxr 05/18 - ett above [place]; left CT in place , left scattered infiltrates but improved CT chest 05/19 - overall improved aeration of lungs, "honeycombing" of the left lower lobe, likley d/t parenchymal destruction secondary to infectious PNA, small bibasilar pleural effusions cxr 05/21: Small left pleural effusion with left basilar atelectasis vs consolidation Doppler BLE 05/22: echogenic material which is nonocclusive in the distal right femoral vein which may represent nonocclusive thrombus or sequela from prior venous thrombus Assessment: 59y M w/pmhx of polysubstance abuse, opiate use, ETOH abuse, COPD, LUng Cancer s /p right lobectomy; presented to ER 3/1 for cough/sob, hypoxia, left lower lobe pneumonia, started on sepsis protocol, Vapotherm for O2 support. He was noted to have intermittent tachycardia suspected to be SVT/sinus tachy. He was started precedex for withdrawal, opiate vs alcohol. He had a GI bleed 05/07. He was intubated on 05/08 for progressive hypoxia, secretions+. A bronchoscopy was done 05/10 and 05/12 -Delirium -Left lower lobe pneumonia, unspec organism, possibly viral -Acute hypoxic respiratory failure, intubated 05/08, extubated 05/14, and reintubated 05/18 -acute blood loss anemia -Cirrhosis -left pleural effusion, exudative in nature; s/p thoracentesis 05/13; s/p Chest tube 05/18 - Bronchoscopy 05/10 and 05/12, TLC 05/09 - COPD - h/o polysubstance abuse -Elevated ammonia - DVT right femoral vein Plan: Neuro- -comfortable on current precedex setting. becomes restless and anxious without it -discontinued seroquel since qtc is 529 -h/o significant drinking ; cont thiamine 100mg po daily, multivitamins -hyperammonemia: resolved with current regimen -Delirium prec CVS- - No further episodes of tachycardia - Edema appears improved upper extremities. BLE remains edematous 2+ edema. Doppler yesterday revealed DVT right femoral vein, unknown if chronic or acute. Nonocclusive. Started on therapeutic lovenox 70mg BID - Continue lasix 20mg BID -Maintain MAP>65 as long as SBP<160 Resp- -Daily pressure support trials as tolerated. Resting settings at night - Patient only able to tolerate 4hrs of PS yesterday. Continue precedex for comfort. If he needs to rest after a few hours of PS, please place back on PS in the evening. Ok to rest overnight. - Apparently hasnt been getting PRN mucomyst for congestion even though he remains rhonchorous throughout all lung stafford. Will change to q6hr scheduled until improvement. -CT chest 05/19 showed improved aeration but "honeycombing" of the left lung parenchyma. -Left CT placed on 05/18 for exudative and recurrent effusion. Currently to water seal -Wean Fio2 to keep sat>92% -Bronchodilators PRN, Aspiration prec, Pulmonary Toilet ID- afebrile -CT chest 05/19 - improved aeration with "honeycombing" of left lung parenchyma -has been on vanco/ctx 05/05-05/07, then vanco/zosyn 05/07-05/11, vanco/cefepime 05/11, d/ c'ed 05/13 -monitor off abx for now. possible viral PNA GI- - Continue PPI daily -Continue tube feeds. 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 -hyperammonemia: improved with current regimen Renal- -Edema: continue lasix -hypernatremia: Na trending up. Likely d/t diuresis. Na trending up. Increased to 200cc q4hr. -maloney+ -strict I/O, replete to keep K>4, Mg>2 Heme- -anemia: improved. H/H stable Endo-Maintain BG<200, insulin protocol as needed Musculsk- pressure ulcer prophylaxis. bedrest for now Wounds- none Nutrition- TF jevity DVT prophylaxis: changed to therapeutic lovenox GI prophylaxis: ppi Central Line: yes 05/09 Maloney Catheter: yes Left Chest tube 05/18 Disposition: Patient requires Critical Care/ICU for respiratory failure, encephalopathy Patient clinical status: stable Code Status: full code Total Critical Care time is 30 minutes
[2019-05-24] MEDS: Albuterol/Ipratropium NEB.SOL* Albuterol 2.5 MG/Ipratropium 0.5 MG 3 ML INH PRN ×2 (16:14→19:13)
[2019-05-24] MEDS: Acetylcysteine INHALATION SOL* 200 MG/ML NEB.SOLN 10 ML INH SCH (16:14)
[2019-05-25] MEDS: Acetaminophen ADULT LIQ* 650 MG/20.3 ML UDC PO PRN ×2 (00:24→17:07)
[2019-05-25] MEDS: Albuterol/Ipratropium NEB.SOL* Albuterol 2.5 MG/Ipratropium 0.5 MG 3 ML INH PRN ×3 (01:01→20:17)
[2019-05-25] MEDS: Acetylcysteine INHALATION SOL* 200 MG/ML NEB.SOLN 10 ML INH SCH ×5 (01:01→20:17)
[2019-05-25] MEDS: Chlorhexidine MOUTHWASH 0.12%* 15 ML UDC TOPICAL SCH ×6 (05:22→20:59)
[2019-05-25] MEDS: Enoxaparin(*) 80 MG/0.8 ML SYR SUBCUT SCH ×2 (05:22→17:07)
[2019-05-25 05:57] LABS: BUN/Creatinine Ratio 31.7 (8-20); Calcium 8.5 mg/dL (8.6-10.3); EGFR African American 116.4 (>60); EGFR Non-African American 96.2 (>60); Magnesium 1.7 mg/dL (1.9-2.7); Phosphorus 3.2 mg/dL (2.5-5.0); Potassium 3.5 mmol/L (3.5-5.0)
[2019-05-25] MEDS: Furosemide IV* 10 MG/ML 2 ML VIAL (20 MG) IV SLOW PU SCH ×2 (08:37→20:51)
[2019-05-25] MEDS: RiFAXimin* 550 MG TAB PO SCH ×2 (08:37→20:59)
[2019-05-25] MEDS: Folic Acid TAB* 1 MG PO SCH (08:37)
[2019-05-25] MEDS: Pantoprazole IV* 40 MG IV SCH (08:37)
[2019-05-25] MEDS: Multivitamins ADULT w/MIN LIQ* 15 ML UDC PO SCH (08:37)
[2019-05-25] MEDS: Thiamine TAB* 100 MG TAB PO SCH (08:37)
[2019-05-25] MEDS ORDERED: Midazolam* 1 MG/ML 5 ML VIAL (5 MG) ONE (09:46)
[2019-05-25] MEDS ORDERED: Propofol* 10 MG/ML 20 ML BTL ONE (10:09)
[2019-05-25] MEDS ORDERED: fentaNYL* 50 MCG/ML 2 ML VIAL (100 MCG VIAL) ONE (10:09)
[2019-05-25] MEDS ORDERED: Bupivacaine 0.25% SDV PF* 10 ML VIAL INJ ONE (10:18)
[2019-05-25] MEDS ORDERED: Lidocaine 1% INJ* 10 MG/ML 30 ML SDV ONE (10:18)
[2019-05-25] MEDS ORDERED: Lidocaine 2% w/ EPI 1:200,000* 20 ML SDV VIAL ONE (10:21)
--- NOTE | 2019-05-25 12:24 | OP ---
DATE OF OPERATION: 05/25/19 - ROOM #ICU-06 DATE OF : 60 SURGEON: Carlin Stockton MD ANESTHESIOLOGIST: Dr. Ruff. PRE-OP DIAGNOSIS: Respiratory failure. POST-OP DIAGNOSIS: Respiratory failure. OPERATIVE PROCEDURE: Tracheostomy and placement of NG feeding tube. BRIEF HISTORY: This 59-year-old ICU patient for 2 weeks, ventilator dependent, not resolving his pneumonia. ICU decided for a tracheostomy. DESCRIPTION OF PROCEDURE: The patient was performed in the ICU. The neck was prepped and draped in the usual fashion. Lidocaine with epinephrine was infiltrated into the skin. Curvilinear incision was made. The subplatysmal flaps were elevated. Straps muscles identified in midline, identifying the isthmus of the thyroid. Midline resection was carried out. Thickened tracheal ring was then incised, #8 Shiley was placed. The endotracheal tube was removed. Confirmation of placement with CO2. The care was then transferred to the ventilator of the ICU. Previously noted OG tube was removed and NG feeding tube was placed. This was secured in place. The patient's care was then transferred back to the ICU. The patient was stable at the time of transfer. [id number] #: [id number] [facility]
[2019-05-25] MEDS ORDERED: Morphine 4 MG/ML VIAL (1 ml) 4 MG/ML VIAL IV PRN ×2 (17:36→20:41)
[2019-05-25] MEDS ORDERED: Morphine INJ* 4 MG/ML 1 ML SYRINGE (NEW SYRINGE VERSION) ONE ×3 (18:08→22:22)
[2019-05-25] MEDS: Dexmedetomidine* 1,000 MCG in NS 0.9% 250 ML* 240 ML IV SCH (18:10)
--- NOTE | 2019-05-25 18:47 | PN ---
Date of Service: 05/25/19 Critical Care Services: Patient seen and examined before trach and after. Before he was agreeable to having trach, also spoke with his sister Vicky/HCP and she is also in agreement with this plan today. After procedure, Yoandy is responding well but and states he has pain at trach site and nods in response to questions about pain at site. Tachycardia improving after morphine. Was on spont trial all day, now appears tired but did well and maintained sats all day. No complications after trach. Afebrile. Vital Signs: Temp Pulse Resp BP SpO2 FiO2 101.3 F 116 27 132/84 95 30 05/25/19 18:00 05/25/19 18:00 05/25/19 18:12 05/25/19 18:00 05/25/19 18:00 05/24 15:59 Physical Exam: HEENT: Normocephalic, atraumatic, non-icteric sclera, moist oral mucosa Neck: soft, trach stoma site with serosanguinous drainage CV: Regular rate and rhythm, no murmurs or rubs Pulm/Chest: Good bilateral air entry, left side diminished with rhonchi, no rales Abdomen/GI: firm, rounded, moderately distended MSK/Skin: warm, dry, intact, generalized edema, +2 Neuro: alert, follows commands, moves extremities Fluid Balance (Past 24 Hours): I= O= Net Intake & Output 05/23/19 05/24/19 05/25/19 05/26/19 06:59 06:59 06:59 06:59 Intake Total 2413.9 2200 2312.7 622 Output Total 3033 2682 3025 1170 Balance -619.1 -482 -712.3 -548 Weight 157 lb 10.088 oz 157 lb 6.561 oz 158 lb 15.253 oz Intake: IV Fluids 166 80 MAG sulfate 10 NS (0.9%) 156 80 IVPB 115 MAG sulfate 115 Medicated IV 319.9 332 169.7 39 CC - Propofol/Diprivan 319.9 50 Precedex 282 169.7 39 Oral 0 Tube Feeding 1108 1418 1458 183 Tube Feeding Flush Amount 625 250 625 400 Packed Cells 0 NG Tube Irrigate Amount 80 120 60 0 Output: Chest Tube #1 40 20 0 Urine 95 Maloney 2193 2662 3025 1075 Liquid Stool 800 0 Other 0 Other: Other Amount Description Thoracentesis Labs: Laboratory Results - last 24 hr 05/25/19 05:29 Sodium 147 H Potassium 3.5 Chloride 115 H Carbon Dioxide 29 Anion Gap 3 BUN 26 H Creatinine 0.82 Est GFR ( Amer) 116.4 Est GFR (Non-Af Amer) 96.2 BUN/Creatinine Ratio 31.7 H Glucose 127 H Calcium 8.5 L Phosphorus 3.2 Magnesium 1.7 L Studies: CXR 05/18 - ett above albertina; left CT in place , left scattered infiltrates but improved CT chest 05/19 - overall improved aeration of lungs, "honeycombing" of the left lower lobe, likley d/t parenchymal destruction secondary to infectious PNA, small bibasilar pleural effusions cxr 05/21: Small left pleural effusion with left basilar atelectasis vs consolidation Doppler BLE 05/22: echogenic material which is nonocclusive in the distal right femoral vein which may represent nonocclusive thrombus or sequela from prior venous thrombus CXR Post Trach 05/24 Left pleural cath with left pleural effusion, Left basilar airspace opacification (right versus atelectasis). Nutrition: Jevity tube feed Impression: 59y M w/pmhx of polysubstance abuse, opiate use, ETOH abuse, COPD, LUng Cancer s /p right lobectomy; presented to ER 05/05 for cough/sob, hypoxia, left lower lobe pneumonia, started on sepsis protocol, Vapotherm for O2 support. He was noted to have intermittent tachycardia suspected to be SVT/sinus tachy. He was started precedex for withdrawal, opiate vs alcohol. He had a GI bleed 05/07. He was intubated on 05/08 for progressive hypoxia, secretions+. A bronchoscopy was done 05/10 and 05/12 Diagnoses: - Delirium, mixed withdrawal/metabolic - Left lower lobe pneumonia, unspec organism, possibly viral - Acute hypoxic respiratory failure, intubated 05/08, extubated 05/14, and reintubated 05/18 - acute blood loss anemia - Cirrhosis - left pleural effusion, exudative in nature; s/p thoracentesis 05/13; s/p Chest tube 05/18 - Bronchoscopy 05/10 and 05/12, TLC 05/09 - COPD - h/o polysubstance abuse - Elevated ammonia - DVT right femoral vein Plan: Neuro- - Continue precedex and taper as tolerated now that he is trach'd - discontinued seroquel, qtc is 529 - cont thiamine 100mg po daily, multivitamins - hyperammonemia: resolved with current regimen - Delirium prec, continue reorientation CV - Tachycardia again today likely related to post-op pain, continue morphine PRN - Edema appears improved upper extremities. BLE remains edematous 2+ edema. Doppler 05/23 revealed DVT right femoral vein, unknown if chronic or acute. Nonocclusive. Started on therapeutic lovenox 70mg BID - Continue lasix 20mg BID - Maintain MAP>65 as long as SBP<160 Pulm - s/p bedside tracheostomy with Dr. Stockton, no complications noted - Tolerated spontaneous post trach all afternoon, will place on rate for overnight to rest - Continue mucomyst q6hr scheduled until improvement. - CT chest 05/19 showed improved aeration but "honeycombing" of the left lung parenchyma. - Chest tube left placed on 05/18 for exudative and recurrent effusion. Currently to water seal with sig output - Wean Fio2 to keep sat>92% - Bronchodilators PRN, Aspiration prec, Pulmonary Toilet ID - afebrile - CT chest 05/19 - improved aeration with "honeycombing" of left lung parenchyma - has been on vanco/ctx 05/05-05/07, then vanco/zosyn 05/07-05/11, vanco/cefepime 05/11, d/c'ed 05/13 - monitor off abx for now. possible viral PNA GI- - Continue PPI daily -Continue tube feeds. will increase to 65cc/hr, verified with sales engagement executive. -hyperammonemia: improved with current regimen Renal - Edema: continue lasix - hypernatremia: Na trending up. Likely d/t diuresis. Na trending up. Increased to 200cc q4hr. - maloney+ - strict I/O, replete to keep K>4, Mg>2 Heme - H/H stable Endo-Maintain BG<200, insulin protocol as needed Musculsk- pressure ulcer prophylaxis. bedrest for now with offloading, OOB to chair now that he has trach Wounds- none Nutrition- TF jevity DVT prophylaxis: changed to therapeutic lovenox GI prophylaxis: ppi Central Line: yes 05/09 Maloney Catheter: yes Left Chest tube 05/18 Disposition: Patient requires Critical Care/ICU for respiratory failure, encephalopathy Patient clinical status: stable Code Status: full code Total Critical Care time is 40 minutes
[2019-05-25] MEDS: Morphine INJ* 4 MG/ML 1 ML SYRINGE (NEW SYRINGE VERSION) IV PRN (22:23)
[2019-05-26] MEDS: Morphine INJ* 4 MG/ML 1 ML SYRINGE (NEW SYRINGE VERSION) IV PRN ×2 (00:51→05:26)
[2019-05-26] MEDS: Acetylcysteine INHALATION SOL* 200 MG/ML NEB.SOLN 10 ML INH SCH ×4 (01:06→19:39)
[2019-05-26] MEDS: Albuterol/Ipratropium NEB.SOL* Albuterol 2.5 MG/Ipratropium 0.5 MG 3 ML INH PRN ×4 (01:07→19:39)
[2019-05-26] MEDS ORDERED: Morphine INJ* 4 MG/ML 1 ML SYRINGE (NEW SYRINGE VERSION) IV ONE ×2 (01:27→02:41)
[2019-05-26] MEDS ORDERED: Furosemide IV* 10 MG/ML VIAL (40 MG) IV ONE (01:27)
[2019-05-26] MEDS ORDERED: Furosemide IV* 10 MG/ML VIAL (40 MG) ONE (01:39)
[2019-05-26] MEDS ORDERED: Morphine 10 MG/ML VIAL (1 ml) ONE (01:41)
[2019-05-26] MEDS ORDERED: LORazepam INJ* 2 MG/ML 1 ML VIAL ONE (01:41)
[2019-05-26] MEDS ORDERED: Iodixanol* (CONTRAST) 320 MG/ML 100 ML SDV IV ONE (01:41)
[2019-05-26] MEDS ORDERED: Lorazepam PYXIS KEY ONE (01:41)
[2019-05-26 01:58] LABS: Hematocrit 32 % (42-52); Hemoglobin 10.1 g/dL (14.0-18.0); Mean Corpuscular HGB Conc 32 g/dL (31-36); Mean Corpuscular Hemoglobin 31 pg (27-31); Mean Corpuscular Volume 97 fL (80-94); Mean Platelet Volume 10.7 fL (7.4-10.4); Platelet Count 154 10^3/uL (150-450); Red Blood Count 3.26 10^6 /uL (4.18-5.48); Red Cell Distribution Width 16 % (10-15); White Blood Count 14.7 10^3/uL (3.5-10.8)
[2019-05-26 02:05] LABS: Activated Partial Thrombo Time 37.2 seconds (26.0-38.0); INR 1.1 (0.82-1.09)
[2019-05-26 02:07] LABS: BUN/Creatinine Ratio 28.2 (8-20); Blood Urea Nitrogen 24 mg/dL (6-24); CO2 Carbon Dioxide 28 mmol/L (22-32); Calcium 8.6 mg/dL (8.6-10.3); EGFR African American 111.6 (>60); EGFR Non-African American 92.3 (>60); Glucose 125 mg/dL (70-100); Potassium 3.5 mmol/L (3.5-5.0)
[2019-05-26 02:08] LABS: Anion Gap 5 mmol/L (2-11); Chloride 114 mmol/L (101-111); Sodium 147 mmol/L (135-145)
[2019-05-26 02:09] LABS: ABS Eosinophils 0.2 10^3/ul (0-0.6); ABS Lymphocytes 0.8 10^3/ul (1.0-4.8); ABS Monocytes 1.4 10^3/ul (0-0.8); Eosinophil % 1.5 %; Lymphocyte % 5.8 %; Nucleated Red Blood Cells % 0.1
[2019-05-26 02:30] LABS: Troponin I 0.17 ng/mL (<0.03)
[2019-05-26] MEDS ORDERED: NS 0.9% 1000 ML** 1,000 ML IV SCH (02:41)
[2019-05-26] MEDS ORDERED: LORazepam INJ* 2 MG/ML 1 ML VIAL IV PUSH ONE (02:41)
--- NOTE | 2019-05-26 03:31 | PN ---
Progress Note - Progress Note Date of Service: 05/26/19 Note: At 1:10 AM on 05/26/19 RN noticed pt to be agitated and indicating that his left arm is not working. Pt's was evaluated at 1:20 AM with [facility] of 19. Last neuro exam reported "normal" at 20:00 on 05/25/19 On exam he appeared very upset ,mouthing words , denied pain. Pupils were reactive, equal b/l, EOMI intact Neck: trach in place, no acute bleeding or hematoma Lungs: decreased breath sounds in L lung, chest tube in place, b/l diffuse rhonchi noted Abd: distended, soft, NT, BS+ Extr: no pedal edema pulses +2 B/L Neuro: CN2-12 intact,R arm 3+/5-positive drift, left arm flaccid B/l LE's flaccid, Babinski neg b/l, sensation:diminished in L UE and LE, pt could not withdraw to pushing on the nail bed in L UE and LLE. Micah Simpson was called and pt was transferred to CT. [facility] was contacted. During transport pt became very agitated and tachypneic, required 8 mg of IV morphine and Ativan 1 mg IV. As per d/w [facility] neurologist: pt is not a TPA candidate due to being anticoagulated with Lovenox. CTA neck showed 60%(as per neurologist) or 40% R ICA stenosis(according to [facility]) CT brain was unremarkable. At this point the recommendation from tele-neurologist was to : -cont anticoagulation with Lovenox -CT brain in 24H -EEG -cont neurochecks Dr. Gold was notified. Spoke also with pt's sister Vicky who would like to visit pt in AM. Currently pt is deeply sedated due to multiple doses of morphine and Ativan received for agitation to that was used in order to get him through CT safely. Time spent in ICU with pt: 90 min critical care time
[2019-05-26] MEDS: Chlorhexidine MOUTHWASH 0.12%* 15 ML UDC TOPICAL SCH ×5 (04:33→20:03)
[2019-05-26] MEDS: Enoxaparin(*) 80 MG/0.8 ML SYR SUBCUT SCH ×2 (05:17→17:25)
[2019-05-26] MEDS: Dexmedetomidine* 1,000 MCG in NS 0.9% 250 ML* 240 ML IV SCH ×2 (05:24→15:27)
[2019-05-26 05:38] LABS: BUN/Creatinine Ratio 28.7 (8-20); Blood Urea Nitrogen 25 mg/dL (6-24); CO2 Carbon Dioxide 29 mmol/L (22-32); Calcium 8.1 mg/dL (8.6-10.3); EGFR African American 108.7 (>60); EGFR Non-African American 89.8 (>60); Glucose 111 mg/dL (70-100); Potassium 3.2 mmol/L (3.5-5.0)
[2019-05-26 05:43] LABS: Chloride 113 mmol/L (101-111); Troponin I 0.21 ng/mL (<0.03)
[2019-05-26 05:56] LABS: Anion Gap 6 mmol/L (2-11); Sodium 148 mmol/L (135-145)
[2019-05-26] MEDS ORDERED: Lorazepam PYXIS KEY PRN (08:44)
[2019-05-26] MEDS: Pantoprazole IV* 40 MG IV SCH (09:52)
[2019-05-26] MEDS: KCL 20 MEQ/100 ML IVPREMIX* 20 MEQ/100 ML BAG IV SCH ×3 (09:52→14:32)
[2019-05-26 10:24] LABS: Urine Appearance Cloudy; Urine Bilirubin Negative (Negative); Urine Blood Negative (Negative); Urine Color Yellow; Urine Glucose Negative (Negative); Urine Ketones Negative (Negative); Urine Nitrite Negative (Negative); Urine Protein Negative (Negative); Urine Specific Gravity 1.027 (1.010-1.030); Urine Urobilinogen Negative (Negative)
[2019-05-26] MEDS: RiFAXimin* 550 MG TAB PO SCH ×2 (11:32→20:03)
[2019-05-26] MEDS: Multivitamins ADULT w/MIN LIQ* 15 ML UDC PO SCH (11:33)
[2019-05-26] MEDS: Thiamine TAB* 100 MG TAB PO SCH (11:33)
[2019-05-26] MEDS: Folic Acid TAB* 1 MG PO SCH (11:33)
[2019-05-26] MEDS: Simethicone TAB* 80 MG TAB.CHEW PO SCH ×3 (12:18→23:57)
--- NOTE | 2019-05-26 13:49 | CONSULT ---
Consult Consult: I have seen and examined the patient with Carrie schofield: Assessment: 1. vent dependent respiratory failure s/p trach 2. pna 3. DVT 4. Cirrhosis 5. COPD 6. s/p pe. R/o stroke plan: The patient will get a trach collar trial if he can pass the sbt CTA no LVO. EEG. CT chest shows some aspiration at the RLL. We will watch for another pna. Chest tube in left lung. Take out when off the vent. He is on therapeutic lovenox for the DVT. Qtc is prolonged we will have to use ativan for agitation and sedation. He has a hx of Alcoholism so Ativan might not be that bad. ccm time 30 minutes.
[2019-05-26 15:01] LABS: Magnesium 1.5 mg/dL (1.9-2.7)
--- NOTE | 2019-05-26 15:05 | PN ---
Progress Note - Progress Note Date of Service: 05/26/19 Note: Progress Note -- Critical Care 24 hour events/significant events: - underwent trach placement yesterday - At around 0110, patient was agitated and indicated that his left arm "wasnt working". There was also a concern for no movement BLE. - Stroke workup is negative thus far - Also concern for aspiration PNA right lower lobe and tube feed like secretions were suctioned out of his trach ROS: ROS unable to be obtained secondary to tracheostomy and AMS Tele: NSR Vitals: Vital Signs 05/25/19 05/25/19 05/25/19 15:00 15:30 15:59 Temperature 100.6 F 100.9 F Pulse Rate 87 86 Respiratory 27 21 Rate Blood Pressure 86/58 120/66 (mmHg) O2 Sat by Pulse 95 96 Oximetry 05/25/19 05/25/19 05/25/19 16:00 16:30 17:00 Temperature 101.3 F 101.5 F 101.5 F Pulse Rate 89 102 123 Respiratory 21 Rate Blood Pressure 115/69 167/90 (mmHg) O2 Sat by Pulse 96 97 95 Oximetry 05/25/19 05/25/19 05/25/19 17:29 17:30 18:00 Temperature 101.7 F 101.3 F Pulse Rate 122 116 Respiratory 21 Rate Blood Pressure 132/84 (mmHg) O2 Sat by Pulse 95 95 Oximetry 05/25/19 05/25/19 05/25/19 18:12 18:30 19:00 Temperature 101.1 F 100.8 F Pulse Rate 102 101 Respiratory 27 25 Rate Blood Pressure 123/64 (mmHg) O2 Sat by Pulse 94 93 Oximetry 05/25/19 05/25/19 05/25/19 19:30 20:00 20:18 Temperature 100.6 F 100.4 F Pulse Rate 101 104 85 Respiratory 25 18 Rate Blood Pressure 128/74 (mmHg) O2 Sat by Pulse 95 96 100 Oximetry 05/25/19 05/25/19 05/25/19 20:30 20:48 21:00 Temperature 100.2 F 100.0 F Pulse Rate 91 89 Respiratory 21 26 Rate Blood Pressure 123/71 (mmHg) O2 Sat by Pulse 100 97 Oximetry 05/25/19 05/25/19 05/25/19 21:30 22:00 22:23 Temperature 99.9 F 99.5 F Pulse Rate 91 91 Respiratory 25 25 Rate Blood Pressure 116/72 125/75 (mmHg) O2 Sat by Pulse 97 97 Oximetry 05/25/19 05/25/19 05/25/19 22:30 23:00 23:17 Temperature 99.9 F 100.0 F 100.0 F Pulse Rate 98 97 99 Respiratory 21 Rate Blood Pressure 133/74 125/74 (mmHg) O2 Sat by Pulse 94 95 95 Oximetry 05/25/19 05/26/19 05/26/19 23:30 00:00 00:30 Temperature 100.0 F 100.2 F 100.2 F Pulse Rate 96 97 96 Respiratory 35 Rate Blood Pressure 112/67 147/82 126/74 (mmHg) O2 Sat by Pulse 95 96 96 Oximetry 05/26/19 05/26/19 05/26/19 00:51 01:00 01:09 Temperature 100.4 F Pulse Rate 101 101 Respiratory 25 32 32 Rate Blood Pressure 142/84 (mmHg) O2 Sat by Pulse 96 95 Oximetry 05/26/19 05/26/19 05/26/19 01:30 01:31 02:00 Temperature 100.8 F 100.8 F Pulse Rate 122 119 Respiratory 30 Rate Blood Pressure 161/97 (mmHg) O2 Sat by Pulse 100 100 Oximetry 05/26/19 05/26/19 05/26/19 02:23 02:27 02:30 Temperature Pulse Rate 106 105 106 Respiratory Rate Blood Pressure 95/64 99/58 (mmHg) O2 Sat by Pulse 100 100 100 Oximetry 05/26/19 05/26/19 05/26/19 02:33 02:45 03:00 Temperature 101.3 F 100.9 F Pulse Rate 104 104 100 Respiratory 30 Rate Blood Pressure 102/63 90/58 94/62 (mmHg) O2 Sat by Pulse 100 99 96 Oximetry 05/26/19 05/26/19 05/26/19 03:15 03:30 03:45 Temperature 100.4 F 100.0 F 99.9 F Pulse Rate 92 95 93 Respiratory Rate Blood Pressure 104/67 108/71 109/71 (mmHg) O2 Sat by Pulse 96 95 92 Oximetry 05/26/19 05/26/19 05/26/19 04:00 04:15 04:30 Temperature 99.5 F 99.3 F 99.1 F Pulse Rate 94 91 90 Respiratory 17 Rate Blood Pressure 117/75 126/78 127/78 (mmHg) O2 Sat by Pulse 91 92 94 Oximetry 05/26/19 05/26/19 05/26/19 04:31 04:32 04:33 Temperature Pulse Rate Respiratory 35 35 35 Rate Blood Pressure (mmHg) O2 Sat by Pulse Oximetry 05/26/19 05/26/19 05/26/19 04:45 05:00 05:05 Temperature 99.1 F 99.0 F Pulse Rate 88 87 Respiratory 20 21 Rate Blood Pressure 131/81 129/80 (mmHg) O2 Sat by Pulse 95 95 Oximetry 05/26/19 05/26/19 05/26/19 05:15 05:26 05:30 Temperature 99.0 F 98.8 F Pulse Rate 86 85 Respiratory 25 Rate Blood Pressure 131/79 131/79 (mmHg) O2 Sat by Pulse 96 96 Oximetry 05/26/19 05/26/19 05/26/19 05:45 06:00 06:15 Temperature 98.8 F 98.8 F 99.0 F Pulse Rate 84 84 83 Respiratory Rate Blood Pressure 124/78 123/76 122/77 (mmHg) O2 Sat by Pulse 96 96 95 Oximetry 05/26/19 05/26/19 05/26/19 06:30 06:45 07:00 Temperature 99.0 F 99.0 F 99.1 F Pulse Rate 83 83 81 Respiratory 17 Rate Blood Pressure 120/75 122/74 124/75 (mmHg) O2 Sat by Pulse 95 94 94 Oximetry 05/26/19 05/26/19 05/26/19 07:15 07:30 07:34 Temperature 99.1 F 99.1 F Pulse Rate 82 89 87 Respiratory 24 Rate Blood Pressure 124/75 (mmHg) O2 Sat by Pulse 95 94 96 Oximetry 05/26/19 05/26/19 05/26/19 07:37 07:53 08:00 Temperature 99.3 F Pulse Rate 87 84 Respiratory 24 22 Rate Blood Pressure 92/63 (mmHg) O2 Sat by Pulse 96 94 Oximetry 05/26/19 05/26/19 05/26/19 08:15 08:30 08:45 Temperature 99.5 F 99.5 F 99.3 F Pulse Rate 84 82 83 Respiratory Rate Blood Pressure 107/71 112/73 143/86 (mmHg) O2 Sat by Pulse 94 92 96 Oximetry 05/26/19 05/26/19 05/26/19 09:00 09:15 09:30 Temperature 99.3 F 99.5 F 99.5 F Pulse Rate 79 82 77 Respiratory 20 Rate Blood Pressure 127/78 118/75 131/78 (mmHg) O2 Sat by Pulse 93 92 90 Oximetry 05/26/19 05/26/19 05/26/19 09:45 10:00 10:15 Temperature 99.5 F 99.5 F 99.5 F Pulse Rate 76 78 76 Respiratory 21 Rate Blood Pressure 135/79 133/81 130/80 (mmHg) O2 Sat by Pulse 90 95 94 Oximetry 05/26/19 05/26/19 05/26/19 10:30 10:45 11:00 Temperature 99.5 F 99.3 F 99.3 F Pulse Rate 76 74 74 Respiratory 17 Rate Blood Pressure 136/82 137/84 138/84 (mmHg) O2 Sat by Pulse 95 96 96 Oximetry 05/26/19 05/26/19 05/26/19 11:15 11:30 11:45 Temperature 99.3 F 99.3 F 99.3 F Pulse Rate 76 73 76 Respiratory Rate Blood Pressure 143/86 141/83 137/83 (mmHg) O2 Sat by Pulse 95 96 96 Oximetry 05/26/19 05/26/19 05/26/19 12:00 12:16 12:30 Temperature 99.3 F 99.5 F 99.5 F Pulse Rate 78 79 74 Respiratory 18 Rate Blood Pressure 135/81 104/75 111/68 (mmHg) O2 Sat by Pulse 95 98 97 Oximetry 05/26/19 05/26/19 05/26/19 12:45 13:00 13:16 Temperature 99.7 F 99.7 F 99.9 F Pulse Rate 73 72 75 Respiratory Rate Blood Pressure 108/69 115/74 95/63 (mmHg) O2 Sat by Pulse 97 99 98 Oximetry 05/26/19 05/26/19 05/26/19 13:30 13:45 14:00 Temperature 99.9 F 99.9 F 99.9 F Pulse Rate 76 73 74 Respiratory 19 22 22 Rate Blood Pressure 116/72 114/71 118/75 (mmHg) O2 Sat by Pulse 99 97 97 Oximetry 05/26/19 05/26/19 14:15 14:30 Temperature 99.9 F 99.7 F Pulse Rate 82 74 Respiratory 25 24 Rate Blood Pressure 124/73 130/78 (mmHg) O2 Sat by Pulse 97 100 Oximetry Intake and Output Last 24 Hours 05/24/19 05/25/19 05/26/19 05/27/19 06:59 06:59 06:59 06:59 Intake Total 2200 2312.7 1686 Output Total 2682 3025 3395 575 Balance -482 -712.3 -1709 -575 Weight 157 lb 6.561 oz 158 lb 15.253 oz 157 lb 10.088 oz Intake: IV Fluids 80 222 NS (0.9%) 80 222 Medicated IV 332 169.7 294 CC - Propofol/Diprivan 50 Precedex 282 169.7 294 Oral 0 Tube Feeding 1418 1458 770 Tube Feeding Flush Amount 250 625 400 Packed Cells 0 NG Tube Irrigate Amount 120 60 0 Output: Chest Tube #1 20 0 Urine 95 Maloney 2662 3025 2800 575 Liquid Stool 500 Other 0 Other: Other Amount Description Thoracentesis Vent: PCV Infusions: precedex @ 1.5 Medication: Acetaminophen (Tylenol Adult Liq*) 650 mg PO Q6H PRN PRN Reason: MILD PAIN or TEMP > 100.4 Last Admin: 05/25/19 17:07 Dose: 650 mg Acetylcysteine (Mucomyst Inhalation Christie*) 400 mg INH Q6H [facility] Last Admin: 05/26/19 14:29 Dose: 400 mg Albuterol/Ipratropium (Duoneb (Albuterol 2.5 Mg/Ipratropium 0.5 Mg)) 1 neb INH Q4H PRN PRN Reason: SOB/WHEEZING Last Admin: 05/26/19 14:29 Dose: 1 neb Chlorhexidine Gluconate (Peridex Mouth Wash 0.12%*) 15 ml TOPICAL Q4H [facility] Last Admin: 05/26/19 11:34 Dose: 15 ml Enoxaparin Sodium (Lovenox(*)) 70 mg SUBCUT Q12H [facility] Last Admin: 05/26/19 05:17 Dose: 70 mg Folic Acid (Folvite Tab*) 1 mg PO DAILY [facility] Last Admin: 05/26/19 11:33 Dose: 1 mg Hydralazine HCl (Apresoline Iv*) 5 mg IV SLOW PU Q1H PRN PRN Reason: SBP sustained above 160 Last Admin: 05/24/19 11:47 Dose: 5 mg Dexmedetomidine HCl 1,000 mcg/ (Sodium Chloride) 250 mls @ 3.57 mls/hr IV .PER PROTOCOL [facility]; Protocol Last Admin: 05/26/19 05:24 Dose: 3.57 mls/hr Lactulose (Lactulose*) 30 ml PO TID [facility] Last Admin: 05/26/19 14:33 Dose: 30 ml Lidocaine HCl (Lidocaine 2% Jelly*) 1 applic TOPICAL Q6H PRN PRN Reason: SKIN IRRITATION Lorazepam (Ativan Inj*) 2 mg IV PUSH Q3H PRN PRN Reason: ANXIETY Metoclopramide HCl (Reglan Iv*) 10 mg IV SLOW PU Q8H [facility] Miscellaneous (Ativan Pyxis Min) 1 ea N/A .ATIVAN IV MIN PRN PRN Reason: PYXIS MIN Multivitamins (Theragran W/Minerals Liq*) 15 ml PO DAILY [facility] Last Admin: 05/26/19 11:33 Dose: 15 ml Pantoprazole Sodium (Protonix Iv*) 40 mg IV DAILY [facility] Last Admin: 05/26/19 09:52 Dose: 40 mg Rifaximin (Xifaxan*) 550 mg PO BID [facility] Last Admin: 05/26/19 11:32 Dose: 550 mg Simethicone (Mylicon Tab*) 80 mg PO Q6H [facility] Last Admin: 05/26/19 12:18 Dose: 80 mg Thiamine HCl (Vitamin B-1 Tab*) 100 mg PO DAILY [facility] Last Admin: 05/26/19 11:33 Dose: 100 mg Vitamin A/Vitamin D (Vitamin A & D Oint*) 1 applic TOPICAL Q6H PRN PRN Reason: SKIN IRRITATION Physical Exam: Constitutional: Trached on vent, awake, alert, mild distress, no diaphoresis Head: normocephalic, atraumatic Eyes: no pallor, no icterus ENT: dry mucous membranes Neck: soft, supple CVS: normal rate, regular, no murmur Chest/Resp: bilateral air entry, rhonchi throughout, wheezing left lung stafford. No acc muscle use Abdomen/GI: soft, nontender, more distension, BS+ Ext/Msk: warm, pulses+, edema 1+ in both feet Skin: intact, warm, jaundiced Neuro: trached on vent, awake, alert, follows some commands. Moves all extremities minimally. However, with nursing care, he is able to purposefully move his left arm. When instructed to lift his left arm, he says he cannot and makes no attempt. PERRL 3mm Labs: Laboratory Results - last 24 hr 05/26/19 05/26/19 05/26/19 01:30 01:30 01:30 WBC 14.7 H RBC 3.26 L Hgb 10.1 L Hct 32 L MCV 97 H MCH 31 MCHC 32 RDW 16 H Plt Count 154 MPV 10.7 H Neut % (Auto) 83.0 Lymph % (Auto) 5.8 [place] % (Auto) 9.4 Eos % (Auto) 1.5 Baso % (Auto) 0.3 Absolute Neuts (auto) 12.0 H Absolute Lymphs (auto) 0.8 L Absolute Monos (auto) 1.4 H Absolute Eos (auto) 0.2 Absolute Basos (auto) 0.0 Absolute Nucleated RBC 0.0 Nucleated RBC % 0.1 INR (Anticoag Therapy) 1.10 H APTT 37.2 ABG pH ABG pH (Temp Correct) ABG pCO2 ABG pCO2 (Temp Corrct ABG pO2 ABG pO2 (Temp Correct ABG HCO3 ABG O2 Saturation ABG Base Excess Respiration Rate Ventilator Type FiO2 PEEP Sodium 147 H Potassium 3.5 Chloride 114 H Carbon Dioxide 28 Anion Gap 5 BUN 24 Creatinine 0.85 Est GFR ( Amer) 111.6 Est GFR (Non-Af Amer) 92.3 BUN/Creatinine Ratio 28.2 H Glucose 125 H Calcium 8.6 Troponin I 0.17 H* Urine Color Urine Appearance Urine pH Ur Specific Ham[place] Urine Protein Urine Ketones Urine Blood Urine Nitrate Urine Bilirubin Urine Urobilinogen Ur Leukocyte Esterase Urine Glucose Urine Ascorbic Acid 05/26/19 05/26/19 05/26/19 01:50 05:14 10:03 WBC RBC Hgb Hct MCV MCH MCHC RDW Plt Count MPV Neut % (Auto) Lymph % (Auto) [place] % (Auto) Eos % (Auto) Baso % (Auto) Absolute Neuts (auto) Absolute Lymphs (auto) Absolute Monos (auto) Absolute Eos (auto) Absolute Basos (auto) Absolute Nucleated RBC Nucleated RBC % INR (Anticoag Therapy) APTT ABG pH 7.27 L ABG pH (Temp Correct) Not Reportable ABG pCO2 71 H ABG pCO2 (Temp Corrct Not Reportable ABG pO2 248 H ABG pO2 (Temp Correct Not Reportable ABG HCO3 27.7 ABG O2 Saturation 100.0 H ABG Base Excess 3.5 H Respiration Rate 18 Ventilator Type 500 FiO2 100 PEEP 5 Sodium 148 H Potassium 3.2 L Chloride 113 H Carbon Dioxide 29 Anion Gap 6 BUN 25 H Creatinine 0.87 Est GFR ( Amer) 108.7 Est GFR (Non-Af Amer) 89.8 BUN/Creatinine Ratio 28.7 H Glucose 111 H Calcium 8.1 L Troponin I 0.21 H* 0.20 H* Urine Color Urine Appearance Urine pH Ur Specific Hamel Urine Protein Urine Ketones Urine Blood Urine Nitrate Urine Bilirubin Urine Urobilinogen Ur Leukocyte Esterase Urine Glucose Urine Ascorbic Acid 05/26/19 10:03 WBC RBC Hgb Hct MCV MCH MCHC RDW Plt Count MPV Neut % (Auto) Lymph % (Auto) [place] % (Auto) Eos % (Auto) Baso % (Auto) Absolute Neuts (auto) Absolute Lymphs (auto) Absolute Monos (auto) Absolute Eos (auto) Absolute Basos (auto) Absolute Nucleated RBC Nucleated RBC % INR (Anticoag Therapy) APTT ABG pH ABG pH (Temp Correct) ABG pCO2 ABG pCO2 (Temp Corrct ABG pO2 ABG pO2 (Temp Correct ABG HCO3 ABG O2 Saturation ABG Base Excess Respiration Rate Ventilator Type FiO2 PEEP Sodium Potassium Chloride Carbon Dioxide Anion Gap BUN Creatinine Est GFR ( Amer) Est GFR (Non-Af Amer) BUN/Creatinine Ratio Glucose Calcium Troponin I Urine Color Yellow Urine Appearance Cloudy Urine pH 6.0 Ur Specific [place] 1.027 Urine Protein Negative Urine Ketones Negative Urine Blood Negative Urine Nitrate Negative Urine Bilirubin Negative Urine Urobilinogen Negative Ur Leukocyte Esterase Negative Urine Glucose Negative Urine Ascorbic Acid * A Imaging: cxr 05/18 - ett above albertina; left CT in place , left scattered infiltrates but improved CT chest 05/19 - overall improved aeration of lungs, "honeycombing" of the left lower lobe, likley d/t parenchymal destruction secondary to infectious PNA, small bibasilar pleural effusions cxr 05/21: Small left pleural effusion with left basilar atelectasis vs consolidation Doppler BLE 05/22: echogenic material which is nonocclusive in the distal right femoral vein which may represent nonocclusive thrombus or sequela from prior venous thrombus Chest xray 05/25: Similar bibasilar airspace opacification, small left pleural effusion, post op changes right perihilar region. KUB 05/25: tip of enteric tube terminates in the gastric pylorus Assessment: 59y M w/pmhx of polysubstance abuse, opiate use, ETOH abuse, COPD, LUng Cancer s /p right lobectomy; presented to ER 05/05 for cough/sob, hypoxia, left lower lobe pneumonia, started on sepsis protocol, Vapotherm for O2 support. He was noted to have intermittent tachycardia suspected to be SVT/sinus tachy. He was started precedex for withdrawal, opiate vs alcohol. He had a GI bleed 05/07. He was intubated on 05/08 for progressive hypoxia, secretions+. A bronchoscopy was done 05/10 and 05/12. Extubated 05/14 and reintubated 05/18. Trach on 05/24. -Delirium -Left lower lobe pneumonia, unspec organism, possibly viral -Acute hypoxic respiratory failure -Cirrhosis -left pleural effusion, exudative in nature; s/p thoracentesis 05/13; s/p Chest tube 05/18 - Bronchoscopy 05/10 and 05/12, TLC /5 - COPD - h/o polysubstance abuse -Elevated ammonia - DVT right femoral vein Plan: Neuro- - Having more episodes of agitation and anxiety. Seems to be delirious. However , his QTC is prolonged at 529 and unable to give anti-psychotics. Will use ativan PRN and monitor for worsening mental status. - Continues to require precedex -h/o etoh abuse; cont thiamine 100mg po daily, multivitamins -hyperammonemia: resolved with current regimen - Stroke-like symptoms: acute and resolved. CTH negative, CTA negative, back to baseline this AM on exam. Previously noted that he does not have much movement of his BLE so unlikely that this was a change. According to his family, he had a panic attack earlier in this hospitalization and it presented similarly. - We will get CTH in AM for any changes, unlikely to be stroke. - Consulted neurology, ordered EEG CVS- - Discontinued lasix since he was hypotensive overnight and was running fluids - Doppler 05/24/19 revealed DVT right femoral vein, unknown if chronic or acute. Nonocclusive. Started on therapeutic lovenox 70mg BID -Maintain MAP>65 as long as SBP<160 Resp- - Trach collar trials as tolerated. Resting settings at night - Continue scheduled mucomyst . -CT chest 05/19 showed improved aeration but "honeycombing" of the left lung parenchyma. -Left CT placed on 05/18 for exudative and recurrent effusion. Currently to water seal - Seem to be suctioning out caballero secretions from trach, similar to tube feedings. Will make NPO for today and monitor. -Wean Fio2 to keep sat>92% -Bronchodilators PRN, Aspiration prec, Pulmonary Toilet ID- -CT chest 05/19 - improved aeration with "honeycombing" of left lung parenchyma -has been on vanco/ctx 05/05-05/07, then vanco/zosyn 05/07-05/11, vanco/cefepime 05/11, d/ c'ed 05/13 - Fever overnight. Pancultured. Concern for aspiration PNA vs pneumonitis. If patient spikes another temp, may need to start antibiotics GI- - Continue PPI daily - Made NPO for today. KUB shows distended loops of bowel. Will start reglan and give tap water enema. -hyperammonemia: improved with current regimen Renal- -hypernatremia: FWF 200cc q4hr. -maloney+ -strict I/O, replete to keep K>4, Mg>2 - Hold lasix for today Heme- -anemia: improved. H/H stable Endo-Maintain BG<200, insulin protocol as needed Musculsk- pressure ulcer prophylaxis. bedrest for now Wounds- none Nutrition- NPO DVT prophylaxis: therapeutic lovenox GI prophylaxis: ppi Central Line: yes 05/09 Maloney Catheter: yes Left Chest tube 05/18 Disposition: Patient requires Critical Care/ICU for respiratory failure, encephalopathy, delirium, aspiration PNA Patient clinical status: stable Code Status: full code Total Critical Care time is 45 minutes
--- NOTE | 2019-05-26 15:07 | PN ---
Subjective Date of Service: 05/26/19 Length of Stay: 20 Days Neurology is following for suspected stroke. Interval History: The patient was evaluated by -TeleStroke yesterday for symptoms of left arm weakness. The patient had a CT head yesterday that showed no evidence of acute intracranial abnormality. He had to be sedated for the CT head with Ativan and morphine. He still complains of left arm weakness. He has intact sensation to pinprick. He does not have any facial asymmetry. He has trouble moving both legs. The patient is on Lovenox for right femoral DVT. According to staff, the patient has intermittent weakness on the left arm. He is able to lift the left arm up when distracted. He denied any neck pain. Labs, imaging, and other diagnostic testing: WBC: 14.7 hemoglobin: 10.1 Magnesium: 1.5 Creatinine: 0.87 Sodium: 148 CT head without contrast 05/25: No acute intracranial abnormality. CTA head without contrast 05/25: Mildly atherosclerotic nonstenotic bilateral ICA. No LVO. Review of Systems: Denied headaches. Family History: Unchanged from Admission Social History: Unchanged from Admission Past Medical History: Unchanged from Admission Objective Active Medications: Acetaminophen (Tylenol Adult Liq*) 650 mg PO Q6H PRN PRN Reason: MILD PAIN or TEMP > 100.4 Last Admin: 05/25/19 17:07 Dose: 650 mg Acetylcysteine (Mucomyst Inhalation Christie*) 400 mg INH Q6H [facility] Last Admin: 05/26/19 14:29 Dose: 400 mg Albuterol/Ipratropium (Duoneb (Albuterol 2.5 Mg/Ipratropium 0.5 Mg)) 1 neb INH Q4H PRN PRN Reason: SOB/WHEEZING Last Admin: 05/26/19 14:29 Dose: 1 neb Chlorhexidine Gluconate (Peridex Mouth Wash 0.12%*) 15 ml TOPICAL Q4H [facility] Last Admin: 05/26/19 11:34 Dose: 15 ml Enoxaparin Sodium (Lovenox(*)) 70 mg SUBCUT Q12H [facility] Last Admin: 05/26/19 05:17 Dose: 70 mg Folic Acid (Folvite Tab*) 1 mg PO DAILY [facility] Last Admin: 05/26/19 11:33 Dose: 1 mg Hydralazine HCl (Apresoline Iv*) 5 mg IV SLOW PU Q1H PRN PRN Reason: SBP sustained above 160 Last Admin: 05/24/19 11:47 Dose: 5 mg Dexmedetomidine HCl 1,000 mcg/ (Sodium Chloride) 250 mls @ 3.57 mls/hr IV .PER PROTOCOL [facility]; Protocol Last Admin: 05/26/19 05:24 Dose: 3.57 mls/hr Lactulose (Lactulose*) 30 ml PO TID [facility] Last Admin: 05/26/19 14:33 Dose: 30 ml Lidocaine HCl (Lidocaine 2% Jelly*) 1 applic TOPICAL Q6H PRN PRN Reason: SKIN IRRITATION Lorazepam (Ativan Inj*) 2 mg IV PUSH Q3H PRN PRN Reason: ANXIETY Metoclopramide HCl (Reglan Iv*) 10 mg IV SLOW PU Q8H [facility] Miscellaneous (Ativan Pyxis Colon) 1 ea N/A .ATIVAN IV COLON PRN PRN Reason: PYXIS COLON Multivitamins (Theragran W/Minerals Liq*) 15 ml PO DAILY [facility] Last Admin: 05/26/19 11:33 Dose: 15 ml Pantoprazole Sodium (Protonix Iv*) 40 mg IV DAILY [facility] Last Admin: 05/26/19 09:52 Dose: 40 mg Rifaximin (Xifaxan*) 550 mg PO BID [facility] Last Admin: 05/26/19 11:32 Dose: 550 mg Simethicone (Mylicon Tab*) 80 mg PO Q6H [facility] Last Admin: 05/26/19 12:18 Dose: 80 mg Thiamine HCl (Vitamin B-1 Tab*) 100 mg PO DAILY [facility] Last Admin: 05/26/19 11:33 Dose: 100 mg Vitamin A/Vitamin D (Vitamin A & D Oint*) 1 applic TOPICAL Q6H PRN PRN Reason: SKIN IRRITATION Vital Signs 05/25/19 05/25/19 05/25/19 15:00 15:30 15:59 Temperature 100.6 F 100.9 F Pulse Rate 87 86 Respiratory 27 21 Rate Blood Pressure 86/58 120/66 (mmHg) O2 Sat by Pulse 95 96 Oximetry 05/25/19 05/25/19 05/25/19 16:00 16:30 17:00 Temperature 101.3 F 101.5 F 101.5 F Pulse Rate 89 102 123 Respiratory 21 Rate Blood Pressure 115/69 167/90 (mmHg) O2 Sat by Pulse 96 97 95 Oximetry 05/25/19 05/25/19 05/25/19 17:29 17:30 18:00 Temperature 101.7 F 101.3 F Pulse Rate 122 116 Respiratory 21 Rate Blood Pressure 132/84 (mmHg) O2 Sat by Pulse 95 95 Oximetry 05/25/19 05/25/19 05/25/19 18:12 18:30 19:00 Temperature 101.1 F 100.8 F Pulse Rate 102 101 Respiratory 27 25 Rate Blood Pressure 123/64 (mmHg) O2 Sat by Pulse 94 93 Oximetry 05/25/19 05/25/19 05/25/19 19:30 20:00 20:18 Temperature 100.6 F 100.4 F Pulse Rate 101 104 85 Respiratory 25 18 Rate Blood Pressure 128/74 (mmHg) O2 Sat by Pulse 95 96 100 Oximetry 05/25/19 05/25/19 05/25/19 20:30 20:48 21:00 Temperature 100.2 F 100.0 F Pulse Rate 91 89 Respiratory 21 26 Rate Blood Pressure 123/71 (mmHg) O2 Sat by Pulse 100 97 Oximetry 05/25/19 05/25/19 05/25/19 21:30 22:00 22:23 Temperature 99.9 F 99.5 F Pulse Rate 91 91 Respiratory 25 25 Rate Blood Pressure 116/72 125/75 (mmHg) O2 Sat by Pulse 97 97 Oximetry 05/25/19 05/25/19 05/25/19 22:30 23:00 23:17 Temperature 99.9 F 100.0 F 100.0 F Pulse Rate 98 97 99 Respiratory 21 Rate Blood Pressure 133/74 125/74 (mmHg) O2 Sat by Pulse 94 95 95 Oximetry 05/25/19 05/26/19 05/26/19 23:30 00:00 00:30 Temperature 100.0 F 100.2 F 100.2 F Pulse Rate 96 97 96 Respiratory 35 Rate Blood Pressure 112/67 147/82 126/74 (mmHg) O2 Sat by Pulse 95 96 96 Oximetry 05/26/19 05/26/19 05/26/19 00:51 01:00 01:09 Temperature 100.4 F Pulse Rate 101 101 Respiratory 25 32 32 Rate Blood Pressure 142/84 (mmHg) O2 Sat by Pulse 96 95 Oximetry 05/26/19 05/26/19 05/26/19 01:30 01:31 02:00 Temperature 100.8 F 100.8 F Pulse Rate 122 119 Respiratory 30 Rate Blood Pressure 161/97 (mmHg) O2 Sat by Pulse 100 100 Oximetry 05/26/19 05/26/19 05/26/19 02:23 02:27 02:30 Temperature Pulse Rate 106 105 106 Respiratory Rate Blood Pressure 95/64 99/58 (mmHg) O2 Sat by Pulse 100 100 100 Oximetry 05/26/19 05/26/19 05/26/19 02:33 02:45 03:00 Temperature 101.3 F 100.9 F Pulse Rate 104 104 100 Respiratory 30 Rate Blood Pressure 102/63 90/58 94/62 (mmHg) O2 Sat by Pulse 100 99 96 Oximetry 05/26/19 05/26/19 05/26/19 03:15 03:30 03:45 Temperature 100.4 F 100.0 F 99.9 F Pulse Rate 92 95 93 Respiratory Rate Blood Pressure 104/67 108/71 109/71 (mmHg) O2 Sat by Pulse 96 95 92 Oximetry 05/26/19 05/26/19 05/26/19 04:00 04:15 04:30 Temperature 99.5 F 99.3 F 99.1 F Pulse Rate 94 91 90 Respiratory 17 Rate Blood Pressure 117/75 126/78 127/78 (mmHg) O2 Sat by Pulse 91 92 94 Oximetry 05/26/19 05/26/19 05/26/19 04:31 04:32 04:33 Temperature Pulse Rate Respiratory 35 35 35 Rate Blood Pressure (mmHg) O2 Sat by Pulse Oximetry 05/26/19 05/26/19 05/26/19 04:45 05:00 05:05 Temperature 99.1 F 99.0 F Pulse Rate 88 87 Respiratory 20 21 Rate Blood Pressure 131/81 129/80 (mmHg) O2 Sat by Pulse 95 95 Oximetry 05/26/19 05/26/19 05/26/19 05:15 05:26 05:30 Temperature 99.0 F 98.8 F Pulse Rate 86 85 Respiratory 25 Rate Blood Pressure 131/79 131/79 (mmHg) O2 Sat by Pulse 96 96 Oximetry 05/26/19 05/26/19 05/26/19 05:45 06:00 06:15 Temperature 98.8 F 98.8 F 99.0 F Pulse Rate 84 84 83 Respiratory Rate Blood Pressure 124/78 123/76 122/77 (mmHg) O2 Sat by Pulse 96 96 95 Oximetry 05/26/19 05/26/19 05/26/19 06:30 06:45 07:00 Temperature 99.0 F 99.0 F 99.1 F Pulse Rate 83 83 81 Respiratory 17 Rate Blood Pressure 120/75 122/74 124/75 (mmHg) O2 Sat by Pulse 95 94 94 Oximetry 05/26/19 05/26/19 05/26/19 07:15 07:30 07:34 Temperature 99.1 F 99.1 F Pulse Rate 82 89 87 Respiratory 24 Rate Blood Pressure 124/75 (mmHg) O2 Sat by Pulse 95 94 96 Oximetry 05/26/19 05/26/19 05/26/19 07:37 07:53 08:00 Temperature 99.3 F Pulse Rate 87 84 Respiratory 24 22 Rate Blood Pressure 92/63 (mmHg) O2 Sat by Pulse 96 94 Oximetry 05/26/19 05/26/19 05/26/19 08:15 08:30 08:45 Temperature 99.5 F 99.5 F 99.3 F Pulse Rate 84 82 83 Respiratory Rate Blood Pressure 107/71 112/73 143/86 (mmHg) O2 Sat by Pulse 94 92 96 Oximetry 05/26/19 05/26/19 05/26/19 09:00 09:15 09:30 Temperature 99.3 F 99.5 F 99.5 F Pulse Rate 79 82 77 Respiratory 20 Rate Blood Pressure 127/78 118/75 131/78 (mmHg) O2 Sat by Pulse 93 92 90 Oximetry 05/26/19 05/26/19 05/26/19 09:45 10:00 10:15 Temperature 99.5 F 99.5 F 99.5 F Pulse Rate 76 78 76 Respiratory 21 Rate Blood Pressure 135/79 133/81 130/80 (mmHg) O2 Sat by Pulse 90 95 94 Oximetry 05/26/19 05/26/19 05/26/19 10:30 10:45 11:00 Temperature 99.5 F 99.3 F 99.3 F Pulse Rate 76 74 74 Respiratory 17 Rate Blood Pressure 136/82 137/84 138/84 (mmHg) O2 Sat by Pulse 95 96 96 Oximetry 05/26/19 05/26/19 05/26/19 11:15 11:30 11:45 Temperature 99.3 F 99.3 F 99.3 F Pulse Rate 76 73 76 Respiratory Rate Blood Pressure 143/86 141/83 137/83 (mmHg) O2 Sat by Pulse 95 96 96 Oximetry 05/26/19 05/26/19 05/26/19 12:00 12:16 12:30 Temperature 99.3 F 99.5 F 99.5 F Pulse Rate 78 79 74 Respiratory 18 Rate Blood Pressure 135/81 104/75 111/68 (mmHg) O2 Sat by Pulse 95 98 97 Oximetry 05/26/19 05/26/19 05/26/19 12:45 13:00 13:16 Temperature 99.7 F 99.7 F 99.9 F Pulse Rate 73 72 75 Respiratory 19 Rate Blood Pressure 108/69 115/74 95/63 (mmHg) O2 Sat by Pulse 97 99 98 Oximetry 05/26/19 05/26/19 05/26/19 13:30 13:45 14:00 Temperature 99.9 F 99.9 F 99.9 F Pulse Rate 76 73 74 Respiratory 19 22 22 Rate Blood Pressure 116/72 114/71 118/75 (mmHg) O2 Sat by Pulse 99 97 97 Oximetry 05/26/19 05/26/19 05/26/19 14:15 14:30 14:50 Temperature 99.9 F 99.7 F Pulse Rate 82 74 72 Respiratory 25 24 24 Rate Blood Pressure 124/73 130/78 (mmHg) O2 Sat by Pulse 97 100 99 Oximetry 05/26/19 14:51 Temperature Pulse Rate Respiratory Rate Blood Pressure (mmHg) O2 Sat by Pulse 99 Oximetry Intake and Output Last 24 Hours 05/24/19 05/25/19 05/26/19 05/27/19 06:59 06:59 06:59 06:59 Intake Total 2200 2312.7 1686 Output Total 9023 7591 6309 823 Balance -482 -712.3 -1709 -094 Weight 157 lb 6.561 oz 158 lb 15.253 oz 157 lb 10.088 oz Intake: IV Fluids 80 222 NS (0.9%) 80 222 Medicated IV 332 169.7 294 CC - Propofol/Diprivan 50 Precedex 282 169.7 294 Oral 0 Tube Feeding 1418 1458 770 Tube Feeding Flush Amount 250 625 400 Packed Cells 0 NG Tube Irrigate Amount 120 60 0 Output: Chest Tube #1 20 0 Urine 95 Hilton 2662 3025 2800 825 Liquid Stool 500 Other 0 Other: Other Amount Description Thoracentesis Oxygen Devices in Use Now: Tracheostomy Collar Neurology Exam: General: Critically ill appearing man in no distress. HEENT: Normocephelic/atraumatic, sclera anicteric, mucous membranes moist Neck: Supple Chest: diminished bibasilar breath sounds Cardiovascular: Regular rate and rhythm without murmurs, rubs, gallops Extremities: No clubbing, cyanosis, or edema Neurological Findings: NIHSS: 10 Awake, alert, and appears oriented with the surrounding environment. He is trached. Unable to assess speech or language. Cranial Nerve: PERRL, EOM intact, VFF, no nystagmus, face symmetric bilaterally , tongue is symmetric. Motor: he is able to make a first on the left but cannot elevate the arm antigravity. He moves the right arm without assistance and against gravity. Sensation: intact to distal noxious stimuli on all 4 extremity, but greater response on the right. Deep Tendon Reflex: 1+ on the left and trace on the right. Extensor plantar response on the left. Gait: unable to assess Result Diagrams: 05/26/19 01:30 05/26/19 05:14 Microbiology and Other Data: Microbiology 05/19/19 05:40 Aerobic Blood Culture - Preliminary Blood Venous No Growth Day 3 Anaerobic Blood Culture - Preliminary No Growth Day 3 05/19/19 04:00 Gram Stain - Final Sputum Trach Sputum Culture - Final YEAST 05/14/19 15:47 Gram Stain - Final Body Fluid - Pleura, Lt Lung Body Fluid Culture - Final No Growth Day 4 05/15/19 13:26 Gram Stain - Final Sputum Sputum Culture - Final YEAST 05/11/19 15:23 Aerobic Blood Culture - Final Blood Venous No Growth Day 5 Anaerobic Blood Culture - Final No Growth Day 5 05/09/19 06:16 Aerobic Blood Culture - Final Blood Venous No Growth Day 5 Anaerobic Blood Culture - Final No Growth Day 5 05/09/19 06:16 Aerobic Blood Culture - Final Blood Venous No Growth Day 5 Anaerobic Blood Culture - Final No Growth Day 5 05/11/19 15:46 Gram Stain - Final Sputum Trach Sputum Culture - Final Normal Sumi 05/06/19 11:01 Aerobic Blood Culture - Final Blood Venous No Growth Day 5 Anaerobic Blood Culture - Final No Growth Day 5 05/06/19 10:53 Aerobic Blood Culture - Final Blood Venous No Growth Day 5 Anaerobic Blood Culture - Final No Growth Day 5 05/09/19 07:13 Gram Stain - Final Sputum Trach Sputum Culture - Final Normal Sumi 05/09/19 06:16 Urine Culture - Final Urine No Growth (<1,000 CFU/mL) 05/07/19 22:30 Urine Culture - Final Urine No Growth (<1,000 CFU/mL) 05/07/19 08:46 Gram Stain - Final Sputum Expectorated Sputum Culture - Final Normal Sumi 05/06/19 17:30 Urine Culture - Final Urine No Growth (<1,000 CFU/mL) 05/07/19 22:45 Stool Occult Blood (VIVEK) - Final Stool 05/06/19 17:27 Gram Stain - Final Sputum Expectorated 05/06/19 13:47 Nasal Screen MRSA (PCR) - Final Nasal Mrsa Not Detected Assessment/Plan Mr. Juan J Alcaraz is a 59-year-old man who has history of COPD, lung cancer s/p right upper lobectomy, retmote tobacco use, hypertension, alcohol abuse, and polysubstance use, who [place] [facility] [place] with symptoms of cough/ SOB and hypoxia due to left lower lobe pneumonia. The hospital course was complicated with GI bleed, incubated for respiratory distress and progressive hypoxia, and was trached due to difficulty weaning off the ventilator. The patient developed left arm weakness overnight. He was assessed by Telestroke. 1. Acute, reportedly fluctuating left hemiparesis. Suspect small lacunar stroke. The flucutation can be dependent on his BP or due to functional weakness. The latter is a diagnosis of exclusion and work-up should first rule out an embolic event. He does have a DVT; thus paradoxical emboli should be further evaluated. He was not a candidate for altplase therapy since he is on full dose anticoagulation. There was no evidence of an LVO; thus he was not a candidate for thrombectomy. 2. Bilateral lower extremity weakness due to debilitated state. Rule out small embolic strokes or myopathy. Recommendations: - Repeat a TTE with bubble study to evaluate for PFO. - Repeat a CT head without contrast in [address] last [address] head, or even better, an MRI brain without contrast if the patient can cooperate. - Continue Lovenox therapy - Ordered TSH and CK levels - Neuro checks every 4 hours - Recommend PT/OT/[employer] evaluation and treatment We will follow-up with the results.
[2019-05-26 15:57] LABS: Creatine Kinase 42 U/L (10-223)
[2019-05-26] MEDS ORDERED: Magnesium Sulf 4 GM/100 ML IV* 4,000 MG/100 ML BAG IVPB ONE (16:00)
[2019-05-26 16:10] LABS: TSH (Thyroid Stimulating Horm) 2.76 mcIU/mL (0.34-5.60)
[2019-05-26] MEDS: Metoclopramide IV* 5 MG/ML 2 ML VIAL IV SLOW PU SCH ×2 (16:20→23:40)
[2019-05-26] MEDS ORDERED: Ketorolac INJ* 15 MG/ML 1 ML VIAL IV PUSH ONE (20:35)
[2019-05-27] MEDS: Albuterol/Ipratropium NEB.SOL* Albuterol 2.5 MG/Ipratropium 0.5 MG 3 ML INH PRN ×2 (00:29→18:58)
[2019-05-27] MEDS: Acetylcysteine INHALATION SOL* 200 MG/ML NEB.SOLN 10 ML INH SCH ×4 (00:29→18:58)
[2019-05-27] MEDS: Dexmedetomidine* 1,000 MCG in NS 0.9% 250 ML* 240 ML IV SCH (00:59)
[2019-05-27] MEDS: Enoxaparin(*) 80 MG/0.8 ML SYR SUBCUT SCH ×2 (06:18→18:10)
[2019-05-27] MEDS: Simethicone TAB* 80 MG TAB.CHEW PO SCH ×4 (06:19→23:40)
[2019-05-27] MEDS: Metoclopramide IV* 5 MG/ML 2 ML VIAL IV SLOW PU SCH ×3 (06:19→23:40)
[2019-05-27 06:40] LABS: BUN/Creatinine Ratio 32.6 (8-20); Calcium 7.9 mg/dL (8.6-10.3); EGFR African American 105.9 (>60); EGFR Non-African American 87.5 (>60); Magnesium 2.3 mg/dL (1.9-2.7); Potassium 3.3 mmol/L (3.5-5.0)
[2019-05-27] MEDS ORDERED: Potassium Chloride* LIQUID 20 MEQ/15 ML UDC PO ONE (07:07)
[2019-05-27] MEDS: RiFAXimin* 550 MG TAB PO SCH ×2 (08:23→19:58)
[2019-05-27] MEDS: Thiamine TAB* 100 MG TAB PO SCH (08:23)
[2019-05-27] MEDS: Multivitamins ADULT w/MIN LIQ* 15 ML UDC PO SCH (08:23)
[2019-05-27] MEDS: Pantoprazole IV* 40 MG IV SCH (08:23)
[2019-05-27] MEDS: Folic Acid TAB* 1 MG PO SCH (08:23)
--- NOTE | 2019-05-27 10:33 | PN ---
Date of Service: 05/27/19 - Looks comfortable; on vent was on trach collar yesterday Vital Signs: Temp Pulse Resp BP SpO2 FiO2 99.3 F 65 16 135/69 100 30 05/27/19 10:00 05/27/19 10:00 05/27/19 10:00 05/27/19 10:00 05/27/19 10:00 05/26 03:31 Physical Exam: Gen: comfortable; on vent off tube feeds 2nd to concern for aspiration; currently HEENT: nc/at perrla Lungs: rhonchi and bilateral AE Cardiac: s1s2 rrr and no murmurs and no rubs. Abdomen: firm slightly distended no guarding and no rebound tenderness Extremities: no edema. Neuro: awake alert and oriented. Fluid Balance (Past 24 Hours): I= O= Net Intake & Output 05/25/19 05/26/19 05/27/19 05/28/19 06:59 06:59 06:59 06:59 Intake Total 2312.7 1686 3100 Output Total 3025 3395 2211 225 Balance -712.3 -1709 889 -225 Weight 158 lb 15.253 oz 157 lb 10.088 oz 159 lb 13.362 oz Intake: IV Fluids 222 1315 NS (0.9%) 222 1315 IVPB 331 KCl 213 Magnesium sulfate 118 Medicated IV 169.7 294 674 Precedex 169.7 294 674 Oral 0 Tube Feeding 1458 770 Tube Feeding Flush Amount 625 400 780 Packed Cells 0 NG Tube Irrigate Amount 60 0 Output: Chest Tube #1 0 Urine 95 Hilton 3025 2800 1411 225 Liquid Stool 500 800 Other 0 Other: Other Amount Description Thoracentesis Labs: Laboratory Results - last 24 hr 05/26/19 05/26/19 05/26/19 01:30 01:36 10:03 Sodium 147 H Potassium 3.5 Chloride 114 H Carbon Dioxide 28 Anion Gap 5 BUN 24 Creatinine 0.85 Est GFR ( Amer) 111.6 Est GFR (Non-Af Amer) 92.3 BUN/Creatinine Ratio 28.2 H Glucose 125 H POC Glucose (mg/dL) 150 H Calcium 8.6 Magnesium 1.5 L Total Creatine Kinase 42 Troponin I 0.17 H* 0.20 H* TSH 2.76 05/27/19 06:10 Sodium 147 H Potassium 3.3 L Chloride 115 H Carbon Dioxide 27 Anion Gap 5 BUN 29 H Creatinine 0.89 Est GFR ( Amer) 105.9 Est GFR (Non-Af Amer) 87.5 BUN/Creatinine Ratio 32.6 H Glucose 80 POC Glucose (mg/dL) Calcium 7.9 L Magnesium 2.3 Total Creatine Kinase Troponin I TSH Impression: 1. vent dependent respiratory failure s/p trach 2. pna s/p trt 3. DVT 4. Cirrhosis 5. COPD 6. s/p pe. R/o stroke 8. Elevated troponins 9. Abdominal distention and concern for aspiration of tube feeds 10. Chest tube Left for inflammatory parapneumonic effusion pulmonary abscess plan: Plan: Plan: -CT head for cva; negative -CT abdomen and pelvis with contrast to evaluate for abd distention and aspiration of tube feeds; no concerning findings. -currently chest xrary does not look worse; WBC has gone; we will watch if things worsen we will start abx -chest tube to come out when not draining fluids and off positive pressure ventilation; may need to do Dornase and TPA. -needs to get out of bed -on therapeutic Lovenox currently -will need to be started on diuretics soon and a nonselective b jose for portal hypertension -inhalers as needed -Reglan started; we will consider starting tube feeds in the afternoon -Will await echo to look for new WMA -I will start the patient on augmentin for a lung abscess; he should be seen by ID. -MRI of the C spine ordered to evaluate for Left arm weakness. Critical Care Time: The patient requires intensive medical decision making to prevent advese outcomes. The ccm time is 32 minutes.
[2019-05-27] MEDS ORDERED: Iohexol 300* (CONTRAST) 10 ML SDV IV ONE (10:58)
[2019-05-27 12:07] LABS: ABS Basophils 0.1 10^3/ul (0-0.2); ABS Eosinophils 0.4 10^3/ul (0-0.6); ABS Lymphocytes 0.7 10^3/ul (1.0-4.8); ABS Monocytes 0.8 10^3/ul (0-0.8); ABS Neutrophils 7.5 10^3/ul (1.5-7.7); Eosinophil % 4.5 %; Hematocrit 27 % (42-52); Hemoglobin 8.4 g/dL (14.0-18.0); Lymphocyte % 7.3 %; Mean Corpuscular HGB Conc 32 g/dL (31-36); Mean Corpuscular Hemoglobin 31 pg (27-31); Mean Corpuscular Volume 97 fL (80-94); Mean Platelet Volume 10.4 fL (7.4-10.4); Platelet Count 117 10^3/uL (150-450); Red Blood Count 2.74 10^6 /uL (4.18-5.48); Red Cell Distribution Width 16 % (10-15); White Blood Count 9.5 10^3/uL (3.5-10.8)
--- NOTE | 2019-05-27 15:28 | PN ---
Subjective Date of Service: 05/27/19 Length of Stay: 21 Days Neurology is following for left arm weakness. Interval History: The patient was able to participate with an exam today, which he was unable to do yesterday. The patient has significant weakness to shoulder abduction and elbow flexion on the left. He has nearly normal strength to elbow extension, wrist extension, and finger abduction. He has reduced sensation to pinprick on the lateral and anterior arm. He reports having multiple falls in the past. He does not know why this started while he was here because he does have evidence of atrophy on the left arm, compare to the right. He has history of a fall from a rut on 2016 where he sustained fractured pelvis and fractured ribs. Repeat CT head without contrast showed no evidence of lacunar stroke. Review of Systems: Denied CP, SOB, or palpitations. Family History: Unchanged from Admission Social History: Unchanged from Admission Past Medical History: Unchanged from Admission Objective Active Medications: Acetaminophen (Tylenol Adult Liq*) 650 mg PO Q6H PRN PRN Reason: MILD PAIN or TEMP > 100.4 Last Admin: 05/25/19 17:07 Dose: 650 mg Acetylcysteine (Mucomyst Inhalation Christie*) 400 mg INH Q6H [place]LLY Last Admin: 05/27/19 15:09 Dose: 400 mg Albuterol/Ipratropium (Duoneb (Albuterol 2.5 Mg/Ipratropium 0.5 Mg)) 1 neb INH Q4H PRN PRN Reason: SOB/WHEEZING Last Admin: 05/27/19 00:29 Dose: 1 neb Amoxicillin/Clavulanate Potassium (Augmentin 80 Mg/Ml Susp* Oralsyr) 600 mg PO BID [facility] Enoxaparin Sodium (Lovenox(*)) 70 mg SUBCUT Q12H [facility] Last Admin: 05/27/19 06:18 Dose: 70 mg Folic Acid (Folvite Tab*) 1 mg PO DAILY [facility] [place] Last Admin: 05/27/19 08:23 Dose: 1 mg Hydralazine HCl (Apresoline Iv*) 5 mg IV SLOW PU Q1H PRN PRN Reason: SBP sustained above 160 Last Admin: 05/24/19 11:47 Dose: 5 mg Dexmedetomidine HCl 1,000 mcg/ (Sodium Chloride) 250 mls @ 3.57 mls/hr IV .PER PROTOCOL [facility] [place]; Protocol Last Admin: 05/27/19 00:59 Dose: 27 mls/hr Lactulose (Lactulose*) 30 ml PO TID [facility] [place] Last Admin: 05/27/19 08:23 Dose: 30 ml Lidocaine HCl (Lidocaine 2% Jelly*) 1 applic TOPICAL Q6H PRN PRN Reason: SKIN IRRITATION Lorazepam (Ativan Inj*) 2 mg IV PUSH Q3H PRN PRN Reason: ANXIETY Metoclopramide HCl (Reglan Iv*) 10 mg IV SLOW PU Q8H [facility] [place] Last Admin: 05/27/19 06:19 Dose: 10 mg Miscellaneous (Ativan Pyxis Min) 1 ea N/A .ATIVAN IV MIN PRN PRN Reason: PYXIS MIN Multivitamins (Theragran W/Minerals Liq*) 15 ml PO DAILY [facility] Last Admin: 05/27/19 08:23 Dose: 15 ml Pantoprazole Sodium (Protonix Iv*) 40 mg IV DAILY [facility] [place] Last Admin: 05/27/19 08:23 Dose: 40 mg Rifaximin (Xifaxan*) 550 mg PO BID [facility] Last Admin: 05/27/19 08:23 Dose: 550 mg Simethicone (Mylicon Tab*) 80 mg PO Q6H [facility] Last Admin: 05/27/19 12:13 Dose: 80 mg Thiamine HCl (Vitamin B-1 Tab*) 100 mg PO DAILY [facility] [place] Last Admin: 05/27/19 08:23 Dose: 100 mg Vitamin A/Vitamin D (Vitamin A & D Oint*) 1 applic TOPICAL Q6H PRN PRN Reason: SKIN IRRITATION Vital Signs 05/26/19 05/26/19 05/26/19 15:30 15:45 16:00 Temperature 99.5 F 99.3 F 99.3 F Pulse Rate 75 73 70 Respiratory 20 20 18 Rate Blood Pressure 124/78 126/76 133/79 (mmHg) O2 Sat by Pulse 97 95 93 Oximetry 05/26/19 05/26/19 05/26/19 16:15 16:30 16:45 Temperature 99.1 F 99.1 F 99.0 F Pulse Rate 69 70 70 Respiratory 18 19 14 Rate Blood Pressure 133/82 140/83 143/82 (mmHg) O2 Sat by Pulse 96 94 95 Oximetry 05/26/19 05/26/19 05/26/19 17:00 17:15 17:30 Temperature 99.0 F 99.0 F 99.0 F Pulse Rate 70 73 71 Respiratory 14 18 18 Rate Blood Pressure 150/85 143/86 150/85 (mmHg) O2 Sat by Pulse 96 96 100 Oximetry 05/26/19 05/26/19 05/26/19 17:45 18:00 18:01 Temperature 99.0 F 99.0 F 99.0 F Pulse Rate 71 67 68 Respiratory 13 21 16 Rate Blood Pressure 139/84 127/72 (mmHg) O2 Sat by Pulse 100 98 100 Oximetry 05/26/19 05/26/19 05/26/19 18:15 18:30 18:45 Temperature 99.0 F 99.0 F 99.0 F Pulse Rate 68 66 66 Respiratory 18 20 15 Rate Blood Pressure 115/73 126/78 120/73 (mmHg) O2 Sat by Pulse 98 99 98 Oximetry 05/26/19 05/26/19 05/26/19 19:00 19:15 19:30 Temperature 99.0 F 99.0 F 99.0 F Pulse Rate 65 64 65 Respiratory 17 13 17 Rate Blood Pressure 120/75 128/78 115/71 (mmHg) O2 Sat by Pulse 98 99 100 Oximetry 05/26/19 05/26/19 05/26/19 19:45 19:52 19:58 Temperature 99.0 F Pulse Rate 65 66 Respiratory 22 18 Rate Blood Pressure 121/72 (mmHg) O2 Sat by Pulse 96 99 99 Oximetry 05/26/19 05/26/19 05/26/19 20:00 20:01 20:15 Temperature 99.1 F 99.1 F 99.1 F Pulse Rate 65 68 66 Respiratory 19 16 21 Rate Blood Pressure 100/67 113/71 (mmHg) O2 Sat by Pulse 98 99 100 Oximetry 05/26/19 05/26/19 05/26/19 20:30 20:45 21:00 Temperature 99.1 F 99.1 F 99.1 F Pulse Rate 65 64 69 Respiratory 15 16 17 Rate Blood Pressure 133/79 121/72 (mmHg) O2 Sat by Pulse 100 100 100 Oximetry 05/26/19 05/26/19 05/26/19 21:16 21:30 21:31 Temperature 98.2 F 98.4 F 98.4 F Pulse Rate 66 65 65 Respiratory 13 23 14 Rate Blood Pressure 108/71 129/78 (mmHg) O2 Sat by Pulse 98 100 100 Oximetry 05/26/19 05/26/19 05/26/19 21:46 21:48 21:58 Temperature 98.6 F 98.6 F Pulse Rate 63 66 Respiratory 21 18 21 Rate Blood Pressure 104/67 (mmHg) O2 Sat by Pulse 99 81 Oximetry 05/26/19 05/26/19 05/26/19 22:00 22:15 22:30 Temperature 98.6 F 98.6 F 98.8 F Pulse Rate 61 60 60 Respiratory 20 20 20 Rate Blood Pressure 118/70 128/76 130/74 (mmHg) O2 Sat by Pulse 98 98 99 Oximetry 05/26/19 05/26/19 05/26/19 22:45 23:00 23:15 Temperature 98.8 F 98.8 F 99.0 F Pulse Rate 60 60 60 Respiratory 20 20 20 Rate Blood Pressure 135/77 129/77 131/76 (mmHg) O2 Sat by Pulse 99 98 98 Oximetry 05/26/19 05/26/19 05/26/19 23:30 23:45 23:58 Temperature 99.0 F 99.0 F Pulse Rate 65 61 Respiratory 20 20 20 Rate Blood Pressure 149/86 131/76 (mmHg) O2 Sat by Pulse 100 99 Oximetry 05/27/19 05/27/19 05/27/19 00:00 00:09 00:30 Temperature 99.0 F 99.0 F 99.1 F Pulse Rate 61 61 62 Respiratory 20 20 21 Rate Blood Pressure 127/75 116/71 (mmHg) O2 Sat by Pulse 99 98 98 Oximetry 05/27/19 05/27/19 05/27/19 00:34 00:59 01:00 Temperature 99.1 F Pulse Rate 65 64 Respiratory 15 20 20 Rate Blood Pressure 114/73 (mmHg) O2 Sat by Pulse 98 96 Oximetry 05/27/19 05/27/19 05/27/19 01:30 02:00 02:30 Temperature 99.1 F 99.1 F 99.0 F Pulse Rate 64 63 64 Respiratory 20 20 20 Rate Blood Pressure 126/74 (mmHg) O2 Sat by Pulse 95 95 Oximetry 05/27/19 05/27/19 05/27/19 03:00 03:30 04:00 Temperature 99.1 F 99.1 F 99.3 F Pulse Rate 64 65 64 Respiratory 20 18 21 Rate Blood Pressure 127/72 125/74 (mmHg) O2 Sat by Pulse 96 97 97 Oximetry 05/27/19 05/27/19 05/27/19 04:30 05:00 05:30 Temperature 99.3 F 99.3 F 99.3 F Pulse Rate 65 63 63 Respiratory 21 20 20 Rate Blood Pressure 120/68 (mmHg) O2 Sat by Pulse 98 98 97 Oximetry 05/27/19 05/27/19 05/27/19 06:00 06:30 07:00 Temperature 99.3 F 99.3 F 99.3 F Pulse Rate 62 63 63 Respiratory 20 20 20 Rate Blood Pressure 134/78 116/71 (mmHg) O2 Sat by Pulse 98 97 97 Oximetry 05/27/19 05/27/19 05/27/19 07:04 07:30 08:00 Temperature 99.3 F 99.3 F Pulse Rate 63 63 63 Respiratory 17 20 20 Rate Blood Pressure 108/66 (mmHg) O2 Sat by Pulse 97 98 97 Oximetry 05/27/19 05/27/19 05/27/19 08:30 09:00 09:30 Temperature 99.5 F 99.5 F 99.5 F Pulse Rate 76 68 68 Respiratory 19 17 19 Rate Blood Pressure 142/76 (mmHg) O2 Sat by Pulse 97 100 100 Oximetry 05/27/19 05/27/19 05/27/19 10:00 10:30 11:00 Temperature 99.3 F 99.0 F 99.0 F Pulse Rate 65 64 62 Respiratory 16 16 19 Rate Blood Pressure 135/69 97/61 (mmHg) O2 Sat by Pulse 100 100 98 Oximetry 05/27/19 05/27/19 05/27/19 11:50 12:00 12:30 Temperature Pulse Rate 69 62 59 Respiratory 14 20 16 Rate Blood Pressure (mmHg) O2 Sat by Pulse 92 100 100 Oximetry 05/27/19 05/27/19 05/27/19 13:00 13:30 14:00 Temperature Pulse Rate 60 59 61 Respiratory 16 17 16 Rate Blood Pressure (mmHg) O2 Sat by Pulse 100 100 100 Oximetry 05/27/19 15:12 Temperature Pulse Rate 60 Respiratory 18 Rate Blood Pressure (mmHg) O2 Sat by Pulse 94 Oximetry Intake and Output Last 24 Hours 05/25/19 05/26/19 05/27/19 05/28/19 06:59 06:59 06:59 06:59 Intake Total 2312.7 1686 3100 Output Total 3025 3395 2211 475 Balance -712.3 -1709 889 -475 Weight 158 lb 15.253 oz 157 lb 10.088 oz 159 lb 13.362 oz Intake: IV Fluids 222 1315 NS (0.9%) 222 1315 IVPB 331 KCl 213 Magnesium sulfate 118 Medicated IV 169.7 294 674 Precedex 169.7 294 674 Oral 0 Tube Feeding 1458 770 Tube Feeding Flush Amount 625 400 780 Packed Cells 0 NG Tube Irrigate Amount 60 0 Output: Chest Tube #1 0 Urine 95 Hilton 3025 2800 1411 475 Liquid Stool 500 800 Other 0 Other: Other Amount Description Thoracentesis Oxygen Devices in Use Now: Endotracheal Tube, Mechanical Ventilator Neurology Exam: General: Ill appearing disheveled man in no distress. HEENT: Normocephelic/atraumatic, sclera anicteric, mucous membranes moist Neck: Supple Extremities: No clubbing, cyanosis, or edema Neurological Findings: Trached. He is awake and conversing. I was able to read his lips when speaking. Speech: fluent without dysarthria, repetition intact Cranial Nerve: PERRL, EOM intact, VFF, no nystagmus, face symmetric bilaterally , facial sensation intact Motor: Left: 0/5 to shoulder abduction and elbow flexion. 4/5 elbow and wrist extension. 5/5 finger abduction on the left. 5/5 in the right upper extrmeity. He was able to move his legs minimally 2/5 symmetrical bilaterally. Sensation: reduced sensation to pinprick on the left lateral and anterior arm. Deep Tendon Reflex: 0 throughout the left, trace on the right. Gait: deferred. Result Diagrams: 05/27/19 11:55 05/27/19 06:10 Microbiology and Other Data: Microbiology 05/19/19 05:40 Aerobic Blood Culture - Preliminary Blood Venous No Growth Day 3 Anaerobic Blood Culture - Preliminary No Growth Day 3 05/19/19 04:00 Gram Stain - Final Sputum Trach Sputum Culture - Final YEAST 05/14/19 15:47 Gram Stain - Final Body Fluid - Pleura, Lt Lung Body Fluid Culture - Final No Growth Day 4 05/15/19 13:26 Gram Stain - Final Sputum Sputum Culture - Final YEAST 05/11/19 15:23 Aerobic Blood Culture - Final Blood Venous No Growth Day 5 Anaerobic Blood Culture - Final No Growth Day 5 05/09/19 06:16 Aerobic Blood Culture - Final Blood Venous No Growth Day 5 Anaerobic Blood Culture - Final No Growth Day 5 05/09/19 06:16 Aerobic Blood Culture - Final Blood Venous No Growth Day 5 Anaerobic Blood Culture - Final No Growth Day 5 05/11/19 15:46 Gram Stain - Final Sputum Trach Sputum Culture - Final Normal Sumi 05/06/19 11:01 Aerobic Blood Culture - Final Blood Venous No Growth Day 5 Anaerobic Blood Culture - Final No Growth Day 5 05/06/19 10:53 Aerobic Blood Culture - Final Blood Venous No Growth Day 5 Anaerobic Blood Culture - Final No Growth Day 5 05/09/19 07:13 Gram Stain - Final Sputum Trach Sputum Culture - Final Normal Sumi 05/09/19 06:16 Urine Culture - Final Urine No Growth (<1,000 CFU/mL) 05/07/19 22:30 Urine Culture - Final Urine No Growth (<1,000 CFU/mL) 05/07/19 08:46 Gram Stain - Final Sputum Expectorated Sputum Culture - Final Normal Sumi 05/06/19 17:30 Urine Culture - Final Urine No Growth (<1,000 CFU/mL) 05/07/19 22:45 Stool Occult Blood (VIVEK) - Final Stool 05/06/19 17:27 Gram Stain - Final Sputum Expectorated 05/06/19 13:47 Nasal Screen MRSA (PCR) - Final Nasal Mrsa Not Detected Diagnostic Imaging: TSH: 2.76 CK: 42 Assessment/Plan Mr. Juan J Alcaraz is a 59-year-old man who has history of COPD, lung cancer s/p right upper lobectomy, remote tobacco use, hypertension, alcohol abuse, and polysubstance use, who [place] [facility] [place] with symptoms of cough/SOB and hypoxia due to left lower lobe pneumonia. The hospital course was complicated with GI bleed, intubated for respiratory distress and progressive hypoxia, and was trached due to difficulty weaning off the ventilator. The patient developed left arm weakness on 05/25. He was assessed by Telestroke. 1. Reportedly acute fluctuating left arm paresis. The patient's neurological examination is notable for focal involvement of the left upper brachial plexus vs C5 radiculopathy. I have a very low suspicion for stroke. He has no clinical signs of Kiarra's syndrome. 2. Bilateral lower extremity weakness due to debilitated state. TSH and CK levels are normal. 3. Right femoral DVT Recommendations: - Pending TTE with bubble study to evaluate for PFO. However, no further intervention is needed unless he has an incidental finding of stroke. - When medically stable, obtain an MRI cervical spine and MRI of the left brachial plexus with contrast. The contrasted study will help assess for metastatic disease to the spine or plexus. - Nonurgent EMG/NCS of the left upper extremity to be done as an outpatient. - Continue Lovenox therapy for the right femoral DVT - Neuro checks every 4 hours - Recommend PT/OT evaluation and treatment. He seems to be regaining strength on the left arm. He will need some in-patient rehabilitation. Please contact us when the MRIs are completed. I will sign out the case to Dr. Plata who will be covering the neurology service starting tomorrow.
[2019-05-27] MEDS: Amoxicillin/Clavulan* ORALSYR 80 MG/ML (400 MG/5 ML) PO SCH (19:58)
[2019-05-27] MEDS: LORazepam INJ* 2 MG/ML 1 ML VIAL IV PUSH PRN (19:58)
[2019-05-27] MEDS ORDERED: Amoxicillin/Clavulanate SUSP* 600 MG/5 ML BTL 75 ML (600/42.9) PO SCH (21:00)
[2019-05-28] MEDS: Albuterol/Ipratropium NEB.SOL* Albuterol 2.5 MG/Ipratropium 0.5 MG 3 ML INH PRN (02:39)
[2019-05-28] MEDS: Acetylcysteine INHALATION SOL* 200 MG/ML NEB.SOLN 10 ML INH SCH ×2 (02:39→08:57)
[2019-05-28] MEDS ORDERED: LORazepam INJ* 2 MG/ML 1 ML VIAL IV PUSH ONE (03:27)
[2019-05-28 04:41] LABS: ABS Basophils 0.1 10^3/ul (0-0.2); ABS Eosinophils 0.3 10^3/ul (0-0.6); ABS Lymphocytes 0.8 10^3/ul (1.0-4.8); ABS Monocytes 0.7 10^3/ul (0-0.8); ABS Neutrophils 8.1 10^3/ul (1.5-7.7); Eosinophil % 3.1 %; Hematocrit 29 % (42-52); Hemoglobin 9.2 g/dL (14.0-18.0); Lymphocyte % 7.9 %; Mean Corpuscular HGB Conc 32 g/dL (31-36); Mean Corpuscular Hemoglobin 31 pg (27-31); Mean Corpuscular Volume 96 fL (80-94); Mean Platelet Volume 11.3 fL (7.4-10.4); Nucleated Red Blood Cells % 0.1; Platelet Count 131 10^3/uL (150-450); Red Blood Count 2.96 10^6 /uL (4.18-5.48); Red Cell Distribution Width 16 % (10-15)
[2019-05-28 04:52] LABS: Albumin 1.9 g/dL (3.2-5.2); Albumin/Globulin Ratio 0.4 (1-3); BUN/Creatinine Ratio 33.7 (8-20); EGFR African American 94.7 (>60); EGFR Non-African American 78.3 (>60); Globulin 4.8 g/dL (2-4); Potassium 3.4 mmol/L (3.5-5.0); Total Bilirubin 0.5 mg/dL (0.2-1.0); Total Protein 6.7 g/dL (6.4-8.9)
[2019-05-28] MEDS ORDERED: KCL 20 MEQ/100 ML IVPREMIX* 20 MEQ/100 ML BAG IV ONE (05:10)
[2019-05-28] MEDS: Metoclopramide IV* 5 MG/ML 2 ML VIAL IV SLOW PU SCH (05:36)
[2019-05-28] MEDS: Simethicone TAB* 80 MG TAB.CHEW PO SCH (05:36)
[2019-05-28] MEDS: Enoxaparin(*) 80 MG/0.8 ML SYR SUBCUT SCH ×2 (05:36→17:19)
[2019-05-28] MEDS: Dexmedetomidine* 1,000 MCG in NS 0.9% 250 ML* 240 ML IV SCH ×2 (06:05→09:32)
[2019-05-28] MEDS: Amoxicillin/Clavulan* ORALSYR 80 MG/ML (400 MG/5 ML) PO SCH (08:15)
[2019-05-28] MEDS: Multivitamins ADULT w/MIN LIQ* 15 ML UDC PO SCH (08:15)
[2019-05-28] MEDS: Finasteride TAB* 5 MG PO SCH (08:15)
[2019-05-28] MEDS: Thiamine TAB* 100 MG TAB PO SCH (08:15)
[2019-05-28] MEDS: RiFAXimin* 550 MG TAB PO SCH ×2 (08:15→21:20)
[2019-05-28] MEDS: Folic Acid TAB* 1 MG PO SCH (08:15)
[2019-05-28] MEDS: Pantoprazole IV* 40 MG IV SCH (08:22)
--- NOTE | 2019-05-28 09:07 | ECHO ---
*[facility]* [place] [address] Fax #: [phone] Transthoracic Echocardiogram Patient: Juan J Alcaraz : 1960 Study Date: 05/27/2019 Age: 59 Gender: M HR: 64 bpm Height: 70 in /177.8 cm BSA: 1.89 m^2 Weight: 158.7 lb /72.1 kg BMI: 22.8 kg/m^2 *Car Coupler: * Katelynn Greenwood [facility] RN *Referring Physician: * Loi Levine *Reading Physician: * Fermin Mata MD Indications: CVA. Abnormal EKG. History: Lung cancer. Pneumonia. Respiratory failure on ventilator. Chest tube left lung.COPD. Cirrhosis. DVT. Conclusions Summary: - Left ventricle: Systolic function is normal. The estimated ejection fraction is 55-60%. Wall motion is normal; there are no regional wall motion abnormalities. - Right ventricle: Systolic function is normal. - Atrial septum: No defect or patent foramen ovale is identified. Bubble study was negative on Images 1 and 2. - Mitral valve: There is mild regurgitation. - Aortic valve: There is no evidence of stenosis. - Pulmonary arteries: Systolic pressure cannot be accurately estimated. - Compared to study of 05/07/2019, there is no change. Study data: Transthoracic echocardiogram. Procedure: Transthoracic echocardiography was performed. Image quality was fair. The study was technically limited due to patient on ventilator and COPD. A bubble study was performed using agitated normal saline on Images 1 and 2. Complete 2D, spectral Doppler, and color flow Doppler. Location: ICU Patient status: Inpatient. Patient room number: ICU 6. Rhythm: Normal sinus rhythm. Findings Left ventricle: The cavity size is normal. Wall thickness is mildly increased. Systolic function is normal. The estimated ejection fraction is 55-60%. Wall motion is normal; there are no regional wall motion abnormalities. There is no consistent Doppler evidence of clinically significant diastolic dysfunction. Right ventricle: The cavity size is mildly dilated. Systolic function is normal. Left atrium: The atrium is normal in size. Right atrium: The atrium is normal in size. Atrial septum: No defect or patent foramen ovale is identified. Bubble study was negative on Images 1 and 2. Mitral valve: The leaflets are mildly thickened. There is no evidence of stenosis. There is mild regurgitation. Aortic valve: The leaflets are mildly thickened. There is no evidence of stenosis. There is no significant regurgitation. Tricuspid valve: The leaflets are normal thickness. There is trace to mild regurgitation. Pulmonic valve: Not well visualized. Aorta: The aorta is not well visualized. No suprasternal notch window due to the presence of a tracheotomy. Pericardium: There is no significant pericardial effusion. Pulmonary arteries: Not well visualized. Systolic pressure cannot be accurately estimated. Systemic veins: Inferior vena cava: Not well visualized. Measurements Left ventricle Value Ref Left atrium continued Value Ref ROXANA, LAX 4.8 cm 4.2 - 5.8 ML dim, A4C 3.5 cm --------- ESD, LAX 3.3 cm 2.5 - 4.0 SI dim, A4C 4.2 cm --------- FS, LAX 31 % 25 - 43 PW, ED (H) 1.2 cm 0.6 - 1.0 Right atrium Value Ref IVS/PW, ED 0.91 ML dim, ES, A4C 3.7 cm 2.6 - 4.4 E', lat izzy, (L) 7.9 cm/sec >=10.0 SI dim, ES, A4C 4.3 cm 3. 4 - 5.3 TDI E/e', lat izzy, 9 Aortic valve Value Ref TDI Izzy diam, ED 2.3 cm --------- E', med izzy, (L) 5.7 cm/sec >=7.0 Peak v, S 1.1 m/sec -- ------- TDI VTI, S 18.1 cm --------- E/e', med izzy, 13 Mean grad, S 3.0 mm Hg ----- ---- TDI Peak grad, S 5.0 mm Hg --------- E', avg, TDI 6.8 cm/sec LVOT/AV, VTI ratio 0.92 ----- ---- E/e', avg, TDI 11 <=14 Mitral valve Value Ref LVOT Value Ref Peak E 0.73 m/sec --------- Peak sarah, S 0.84 m/sec Peak A 0.64 m/sec --------- VTI, S 16.6 cm Decel time 317 ms --------- Mean grad, S 1 mm Hg Peak grad, D 2.1 mm Hg --------- Peak E/A ratio 1.1 --------- Ventricular septum Value Ref IVS, ED (H) 1.1 cm 0.6 - 1.0 Pulmonic valve Value Ref Peak v, S 0.62 m/sec --------- Right ventricle Value Ref ROXANA minor ax, (H) 3.9 cm 1.9 - 3.5 A4C mid Left atrium Value Ref AP dim, ES (L) 2.90 cm 3.00 - 4.00 Legend: (L) and (H) sharmin values outside specified reference range. Prepared and electronically signed by Fermin Mata MD 05/28/2019 09:06
[2019-05-28] MEDS: OLANzapine TAB* 5 MG PO SCH ×2 (10:56→22:38)
--- NOTE | 2019-05-28 11:35 | PN ---
<Cassi Sotomayor - Last Filed: 05/28/19 11:06> Progress Note - Progress Note Date of Service: 05/28/19 Note: Progress Note -- Critical Care 24 hour events/significant events: - Had period of agitation requiring increased dosage of precedex ROS: ROS unable to be obtained secondary to tracheostomy and AMS Tele: NSR Vitals: Vital Signs 05/27/19 05/27/19 05/27/19 11:50 12:00 12:30 Temperature Pulse Rate 69 62 59 Respiratory 14 20 16 Rate Blood Pressure (mmHg) O2 Sat by Pulse 92 100 100 Oximetry 05/27/19 05/27/19 05/27/19 13:00 13:30 14:00 Temperature Pulse Rate 60 59 61 Respiratory 16 17 16 Rate Blood Pressure (mmHg) O2 Sat by Pulse 100 100 100 Oximetry 05/27/19 05/27/19 05/27/19 14:19 14:30 15:00 Temperature Pulse Rate 65 60 58 Respiratory 20 20 20 Rate Blood Pressure 92/59 91/56 (mmHg) O2 Sat by Pulse 97 93 93 Oximetry 05/27/19 05/27/19 05/27/19 15:12 15:30 15:51 Temperature Pulse Rate 60 58 Respiratory 18 21 20 Rate Blood Pressure (mmHg) O2 Sat by Pulse 94 91 Oximetry 05/27/19 05/27/19 05/27/19 16:00 16:30 17:00 Temperature Pulse Rate 60 60 60 Respiratory 18 20 17 Rate Blood Pressure 98/61 90/59 (mmHg) O2 Sat by Pulse 96 96 100 Oximetry 05/27/19 05/27/19 05/27/19 17:30 18:00 18:30 Temperature Pulse Rate 60 61 65 Respiratory 17 25 Rate Blood Pressure 95/59 (mmHg) O2 Sat by Pulse 100 100 94 Oximetry 05/27/19 05/27/19 05/27/19 19:00 19:16 19:30 Temperature 98.6 F 98.6 F Pulse Rate 64 68 68 Respiratory 14 20 19 Rate Blood Pressure 95/61 (mmHg) O2 Sat by Pulse 100 97 97 Oximetry 05/27/19 05/27/19 05/27/19 19:52 19:58 20:00 Temperature 98.6 F 98.6 F Pulse Rate 67 69 Respiratory 18 18 17 Rate Blood Pressure 95/61 83/54 (mmHg) O2 Sat by Pulse 99 96 Oximetry 05/27/19 05/27/19 05/27/19 20:30 21:00 21:01 Temperature 98.8 F 98.1 F 98.1 F Pulse Rate 68 69 68 Respiratory 25 21 16 Rate Blood Pressure 94/61 (mmHg) O2 Sat by Pulse 100 100 100 Oximetry 05/27/19 05/27/19 05/27/19 21:30 22:00 22:30 Temperature 98.2 F 98.2 F 98.4 F Pulse Rate 67 66 68 Respiratory 18 22 17 Rate Blood Pressure 87/56 (mmHg) O2 Sat by Pulse 100 100 100 Oximetry 05/27/19 05/27/19 05/27/19 23:00 23:02 23:30 Temperature 99.1 F 99.1 F 99.3 F Pulse Rate 67 67 68 Respiratory 22 28 27 Rate Blood Pressure 86/55 (mmHg) O2 Sat by Pulse 100 100 99 Oximetry 05/28/19 05/28/19 05/28/19 00:00 00:01 00:09 Temperature 99.7 F 99.7 F 99.7 F Pulse Rate 65 67 68 Respiratory 21 27 20 Rate Blood Pressure 80/51 91/60 (mmHg) O2 Sat by Pulse 93 88 100 Oximetry 05/28/19 05/28/19 05/28/19 00:30 01:00 01:30 Temperature 99.9 F 99.9 F 99.9 F Pulse Rate 68 66 65 Respiratory 21 22 23 Rate Blood Pressure 91/57 (mmHg) O2 Sat by Pulse 100 100 100 Oximetry 05/28/19 05/28/19 05/28/19 02:00 02:30 02:39 Temperature 100.0 F 100.0 F Pulse Rate 65 66 65 Respiratory 23 20 19 Rate Blood Pressure 90/53 (mmHg) O2 Sat by Pulse 100 100 99 Oximetry 05/28/19 05/28/19 05/28/19 03:00 03:30 03:36 Temperature 100.0 F 100.0 F Pulse Rate 73 73 Respiratory 25 26 25 Rate Blood Pressure 104/58 (mmHg) O2 Sat by Pulse 97 94 Oximetry 05/28/19 05/28/19 05/28/19 04:00 04:30 05:00 Temperature 100.0 F 100.0 F 99.9 F Pulse Rate 74 71 69 Respiratory 19 18 19 Rate Blood Pressure 108/63 111/61 120/65 (mmHg) O2 Sat by Pulse 98 100 100 Oximetry 05/28/19 05/28/19 05/28/19 05:30 06:00 06:18 Temperature 99.7 F 99.7 F 99.3 F Pulse Rate 68 67 75 Respiratory 28 26 19 Rate Blood Pressure 112/64 94/60 123/72 (mmHg) O2 Sat by Pulse 100 100 100 Oximetry 05/28/19 05/28/19 05/28/19 06:30 06:31 07:00 Temperature 99.1 F 99.1 F 98.8 F Pulse Rate 67 69 66 Respiratory 23 15 23 Rate Blood Pressure 96/56 100/58 (mmHg) O2 Sat by Pulse 100 100 100 Oximetry 05/28/19 05/28/19 05/28/19 07:01 07:30 08:00 Temperature 98.8 F 99.0 F 99.7 F Pulse Rate 66 66 68 Respiratory 26 24 24 Rate Blood Pressure 96/57 111/69 (mmHg) O2 Sat by Pulse 100 100 Oximetry 05/28/19 05/28/19 05/28/19 08:30 09:00 09:01 Temperature 99.7 F 99.7 F 86.9 F Pulse Rate 69 71 70 Respiratory 25 18 30 Rate Blood Pressure 125/75 110/63 (mmHg) O2 Sat by Pulse 100 93 100 Oximetry 05/28/19 05/28/19 05/28/19 09:30 09:32 10:00 Temperature 92.3 F 92.3 F 99.9 F Pulse Rate 68 68 67 Respiratory 22 21 27 Rate Blood Pressure 109/65 102/63 (mmHg) O2 Sat by Pulse 96 100 94 Oximetry 05/28/19 05/28/19 10:30 11:00 Temperature 99.5 F 99.5 F Pulse Rate 75 68 Respiratory 34 25 Rate Blood Pressure 109/82 (mmHg) O2 Sat by Pulse 95 94 Oximetry Intake and Output Last 24 Hours 05/26/19 05/27/19 05/28/19 05/29/19 06:59 06:59 06:59 06:59 Intake Total 1686 3100 1391 360 Output Total 3395 2211 1265 224 Balance -1709 889 126 136 Weight 157 lb 10.088 oz 159 lb 13.362 oz 162 lb 6.4 oz Intake: IV Fluids 222 1315 NS (0.9%) 222 1315 IVPB 331 KCl 213 Magnesium sulfate 118 Medicated IV 294 674 454 Precedex 294 674 454 Oral 0 Tube Feeding 770 937 Tube Feeding Flush Amount 400 780 Packed Cells 0 NG Tube Irrigate Amount 0 360 Output: Chest Tube #1 0 50 Urine 95 Maloney 2800 1411 1215 224 Liquid Stool 500 800 Other 0 Other: Other Amount Description Thoracentesis O2: 35% trach collar Infusions: precedex @ 1 Medications: Acetaminophen (Tylenol Adult Liq*) 650 mg PO Q6H PRN PRN Reason: MILD PAIN or TEMP > 100.4 Last Admin: 05/25/19 17:07 Dose: 650 mg Albuterol/Ipratropium (Duoneb (Albuterol 2.5 Mg/Ipratropium 0.5 Mg)) 1 neb INH Q4H PRN PRN Reason: SOB/WHEEZING Last Admin: 05/28/19 02:39 Dose: 1 neb Enoxaparin Sodium (Lovenox(*)) 70 mg SUBCUT Q12H [facility] Last Admin: 05/28/19 05:36 Dose: 70 mg Finasteride (Proscar Tab*) 5 mg PO DAILY [facility] Last Admin: 05/28/19 08:15 Dose: 5 mg Folic Acid (Folvite Tab*) 1 mg PO DAILY [facility] Last Admin: 05/28/19 08:15 Dose: 1 mg Hydralazine HCl (Apresoline Iv*) 5 mg IV SLOW PU Q1H PRN PRN Reason: SBP sustained above 160 Last Admin: 05/24/19 11:47 Dose: 5 mg Dexmedetomidine HCl 1,000 mcg/ (Sodium Chloride) 250 mls @ 3.57 mls/hr IV .PER PROTOCOL [facility]; Protocol Last Admin: 05/28/19 09:32 Dose: 21.6 mls/hr Lactulose (Lactulose*) 30 ml PO BID [facility] Lorazepam (Ativan Inj*) 2 mg IV PUSH Q3H PRN PRN Reason: ANXIETY Last Admin: 05/27/19 19:58 Dose: 2 mg Miscellaneous (Ativan Pyxis Min) 1 ea N/A .ATIVAN IV MIN PRN PRN Reason: PYXIS MIN Multivitamins (Theragran W/Minerals Liq*) 15 ml PO DAILY [facility] Last Admin: 05/28/19 08:15 Dose: 15 ml Olanzapine (Zyprexa Tab*) 2.5 mg PO Q12H [facility] Last Admin: 05/28/19 10:56 Dose: 2.5 mg Pantoprazole Sodium (Protonix Iv*) 40 mg IV DAILY [facility] Last Admin: 05/28/19 08:22 Dose: 40 mg Potassium Chloride (Potassium Chloride Liquid) 20 meq PO BID [facility] Rifaximin (Xifaxan*) 550 mg PO BID [facility] Last Admin: 05/28/19 08:15 Dose: 550 mg Thiamine HCl (Vitamin B-1 Tab*) 100 mg PO DAILY [facility] Last Admin: 05/28/19 08:15 Dose: 100 mg Vitamin A/Vitamin D (Vitamin A & D Oint*) 1 applic TOPICAL Q6H PRN PRN Reason: SKIN IRRITATION Physical Exam: Constitutional: Trached on trach collar, awake, alert, mild distress, no diaphoresis, jaundiced Head: normocephalic, atraumatic Eyes: no pallor, no icterus ENT: dry mucous membranes Neck: soft, supple CVS: normal rate, regular, no murmur Chest/Resp: bilateral air entry, rhonchi throughout, wheezing left lung stafford. No acc muscle use Abdomen/GI: soft, nontender, distended, BS+ Ext/Msk: warm, pulses+, edema 1+ in both feet Skin: intact, warm, jaundiced Neuro: trached on vent, awake, alert, follows some commands. Moves upper extremities spontaneously, bilateral extremities minimally. PERRL 3mm. Labs: Laboratory Results - last 24 hr 05/27/19 05/28/19 05/28/19 11:55 01:06 03:42 WBC 9.5 10.0 RBC 2.74 L 2.96 L Hgb 8.4 L 9.2 L Hct 27 L 29 L MCV 97 H 96 H MCH 31 31 MCHC 32 32 RDW 16 H 16 H Plt Count 117 L 131 L MPV 10.4 11.3 H Neut % (Auto) 79.0 81.2 Lymph % (Auto) 7.3 7.9 Wagoner % (Auto) 8.5 7.2 Eos % (Auto) 4.5 3.1 Baso % (Auto) 0.7 0.6 Absolute Neuts (auto) 7.5 8.1 H Absolute Lymphs (auto) 0.7 L 0.8 L Absolute Monos (auto) 0.8 0.7 Absolute Eos (auto) 0.4 0.3 Absolute Basos (auto) 0.1 0.1 Absolute Nucleated RBC 0.0 0.0 Nucleated RBC % 0.0 0.1 Sodium Potassium Chloride Carbon Dioxide Anion Gap BUN Creatinine Est GFR ( Amer) Est GFR (Non-Af Amer) BUN/Creatinine Ratio Glucose POC Glucose (mg/dL) 108 H Calcium Magnesium Total Bilirubin AST ALT Alkaline Phosphatase Total Protein Albumin Globulin Albumin/Globulin Ratio 05/28/19 03:42 WBC RBC Hgb Hct MCV MCH MCHC RDW Plt Count MPV Neut % (Auto) Lymph % (Auto) Wagoner % (Auto) Eos % (Auto) Baso % (Auto) Absolute Neuts (auto) Absolute Lymphs (auto) Absolute Monos (auto) Absolute Eos (auto) Absolute Basos (auto) Absolute Nucleated RBC Nucleated RBC % Sodium 144 Potassium 3.4 L Chloride 113 H Carbon Dioxide 25 Anion Gap 6 BUN 33 H Creatinine 0.98 Est GFR ( Amer) 94.7 Est GFR (Non-Af Amer) 78.3 BUN/Creatinine Ratio 33.7 H Glucose 104 H POC Glucose (mg/dL) Calcium 8.0 L Magnesium 2.0 Total Bilirubin 0.50 AST 48 H ALT 28 Alkaline Phosphatase 113 H Total Protein 6.7 Albumin 1.9 L Globulin 4.8 H Albumin/Globulin Ratio 0.4 L Imaging: cxr 05/18 - ett above albertina; left CT in place , left scattered infiltrates but improved CT chest 05/19 - overall improved aeration of lungs, "honeycombing" of the left lower lobe, likley d/t parenchymal destruction secondary to infectious PNA, small bibasilar pleural effusions cxr 05/21: Small left pleural effusion with left basilar atelectasis vs consolidation Doppler BLE 05/22: echogenic material which is nonocclusive in the distal right femoral vein which may represent nonocclusive thrombus or sequela from prior venous thrombus Chest xray 05/25: Similar bibasilar airspace opacification, small left pleural effusion, post op changes right perihilar region. KUB 05/25: tip of enteric tube terminates in the gastric pylorus Echo 05/26: EF 55-60% Abdomen/pelvis CT 05/26: partially imaged left lower lobe pulmonary abscess with bibasilar ground glass opacification. Small left pleural effusion, cirrhosis, small volume ascites CTH 05/26: No acute changes 05/27: Small dependent left pleural effusion appears increaseed, consolidation in the left mid to lower lung zone Assessment: 59y M w/pmhx of polysubstance abuse, opiate use, ETOH abuse, COPD, LUng Cancer s /p right lobectomy; presented to ER 05/05 for cough/sob, hypoxia, left lower lobe pneumonia, started on sepsis protocol, Vapotherm for O2 support. He was noted to have intermittent tachycardia suspected to be SVT/sinus tachy. He was started precedex for withdrawal, opiate vs alcohol. He had a GI bleed 05/07. He was intubated on 05/08 for progressive hypoxia, secretions+. A bronchoscopy was done 05/10 and 05/12. Extubated 05/14 and reintubated 05/18. Trach on 05/24. -Delirium -Left lower lobe pneumonia, unspec organism, currently r/o abscess -Acute hypoxic respiratory failure -Cirrhosis -left pleural effusion, exudative in nature; s/p thoracentesis 05/13; s/p Chest tube 05/18 - Bronchoscopy 05/10 and 05/12, TLC /5 - COPD - h/o polysubstance abuse -Elevated ammonia - DVT right femoral vein Plan: Neuro- - Delirium: acute. QTC is prolonged. - Will use ativan PRN. - Continues to require precedex but needs to be weaned off. So will start low dose zyprexa. -h/o etoh abuse; cont thiamine 100mg po daily, multivitamins -hyperammonemia: decreased lactulose BID - Stroke-like symptoms: acute and resolved. CTH negative. - Neuro is on board CVS- - BP WNL - Doppler 05/24/19 revealed DVT right femoral vein, unknown if chronic or acute. Nonocclusive. Continue lovenox 70mg BID -Maintain MAP>65 as long as SBP<160 Resp- - Trach collar trials as tolerated. Has been off vent for at least 24hrs - Discontinue mucomyst - CT concerned for left lung abscess. Will discuss case with radiology and consult ID -Wean Fio2 to keep sat>92% -Bronchodilators PRN, Aspiration prec, Pulmonary Toilet ID- - Concern for left lung abscess but asymptomatic. Discontinued antibiotics, will speak to radiologist and consult ID -has been on vanco/ctx 05/05-05/07, then vanco/zosyn 05/07-05/11, vanco/cefepime 05/11, d/ c'ed 05/13 GI- - Continue PPI daily - Ok to continue TF. Reglan no longer needed -hyperammonemia: improved with current regimen, decreased lactulose to BID. Renal- -hypernatremia: FWF 200cc q4hr. -maloney+ -strict I/O, replete to keep K>4, Mg>2 Heme- -anemia: improved. H/H stable Endo-Maintain BG<200, insulin protocol as needed Musculsk- pressure ulcer prophylaxis. oob Wounds- none Nutrition- TF DVT prophylaxis: therapeutic lovenox GI prophylaxis: ppi Central Line: yes 05/09 Maloney Catheter: yes Left Chest tube 05/18 Disposition: Patient can go to floor when off precedex. Patient clinical status: stable Code Status: full code <Toi Painter - Last Filed: 05/28/19 14:04> Progress Note - Progress Note Note: I reviewed CT scan of chest with radiology, and there appears to be an abscess at the left base posteriorly, a;omg with a loculated pleural effusion (chest tube is not functional) - I will speak with interventional radiolgy about the feasibility of percutaneous drainage for this abscess.
[2019-05-28] MEDS: SIMETHICONE SUSP* ORALSYR 66.66 MG/ML PO PRN (16:14)
[2019-05-28] MEDS: Acetaminophen ADULT LIQ* 650 MG/20.3 ML UDC PO PRN (19:59)
[2019-05-28] MEDS: Potassium Chloride* LIQUID 20 MEQ/15 ML UDC PO SCH (21:20)
[2019-05-28] MEDS: LORazepam INJ* 2 MG/ML 1 ML VIAL IV PUSH PRN (22:48)
[2019-05-29] MEDS: LORazepam INJ* 2 MG/ML 1 ML VIAL IV PUSH PRN ×2 (01:50→22:18)
[2019-05-29 04:57] LABS: BUN/Creatinine Ratio 25.8 (8-20); Calcium 8.1 mg/dL (8.6-10.3); EGFR African American 95.9 (>60); EGFR Non-African American 79.2 (>60); Magnesium 1.8 mg/dL (1.9-2.7); Potassium 3.6 mmol/L (3.5-5.0)
[2019-05-29] MEDS: Enoxaparin(*) 80 MG/0.8 ML SYR SUBCUT SCH ×2 (05:12→17:57)
[2019-05-29] MEDS: hydrALAZINE IV* 20 MG/ML VIAL IV SLOW PU PRN (06:56)
[2019-05-29] MEDS ORDERED: Magnesium Sulfate 2 GM IV* 2 GM/50 ML BAG IVPB ONE (07:49)
[2019-05-29] MEDS: RiFAXimin* 550 MG TAB PO SCH ×2 (08:46→20:04)
[2019-05-29] MEDS: Acetaminophen ADULT LIQ* 650 MG/20.3 ML UDC PO PRN (08:46)
[2019-05-29] MEDS: Finasteride TAB* 5 MG PO SCH (08:46)
[2019-05-29] MEDS: Pantoprazole IV* 40 MG IV SCH (08:46)
[2019-05-29] MEDS: Folic Acid TAB* 1 MG PO SCH (08:46)
[2019-05-29] MEDS: Multivitamins ADULT w/MIN LIQ* 15 ML UDC PO SCH (08:46)
[2019-05-29] MEDS: Potassium Chloride* LIQUID 20 MEQ/15 ML UDC PO SCH ×2 (08:46→20:04)
[2019-05-29] MEDS: Thiamine TAB* 100 MG TAB PO SCH (08:46)
[2019-05-29] MEDS: OLANzapine TAB* 5 MG PO SCH ×2 (11:27→22:18)
[2019-05-29] MEDS ORDERED: Iohexol 350* (CONTRAST) 500 ML MDV IV ONE (11:31)
[2019-05-29] MEDS: Labetalol IV* 5 MG/ML 20 ML VIAL IV PUSH PRN (11:42)
--- NOTE | 2019-05-29 11:51 | PN ---
Progress Note - Progress Note Date of Service: 05/29/19 Note: Progress Note -- Critical Care 24 hour events/significant events: - Around 1700 on 05/27, patient started desatting into 70's, tachycardia, c/o SOB. Bagged and suctioned for large amounts of thick secretions. RT was able to pull out a large mucous plug and he began to recover - He continued to have low saturations and was placed on high flow nasal cannula with improvement. - Around 05/28, patient was very tachypneic in 40-50's, tachycardic, hypertensive. He required placement back onto the vent ROS: ROS unable to be obtained secondary to tracheostomy and AMS Tele: NSR Vitals: Vital Signs 05/28/19 05/28/19 05/28/19 11:30 11:31 12:00 Temperature 99.3 F 99.3 F 99.3 F Pulse Rate 64 64 65 Respiratory 26 24 24 Rate Blood Pressure 101/62 96/63 (mmHg) O2 Sat by Pulse 95 95 96 Oximetry 05/28/19 05/28/19 05/28/19 12:30 12:31 13:00 Temperature 99.1 F 99.1 F 99.1 F Pulse Rate 69 69 73 Respiratory 26 25 24 Rate Blood Pressure 98/59 (mmHg) O2 Sat by Pulse 96 97 96 Oximetry 05/28/19 05/28/19 05/28/19 13:30 14:00 14:01 Temperature Pulse Rate 73 76 80 Respiratory 32 29 21 Rate Blood Pressure 126/73 (mmHg) O2 Sat by Pulse 95 95 94 Oximetry 05/28/19 05/28/19 05/28/19 14:30 15:00 15:30 Temperature Pulse Rate 78 78 81 Respiratory 27 29 30 Rate Blood Pressure (mmHg) O2 Sat by Pulse 95 96 98 Oximetry 05/28/19 05/28/19 05/28/19 16:00 16:30 17:00 Temperature Pulse Rate 85 86 97 Respiratory 24 28 29 Rate Blood Pressure 136/72 (mmHg) O2 Sat by Pulse 97 97 95 Oximetry 05/28/19 05/28/19 05/28/19 17:30 18:00 18:30 Temperature Pulse Rate 101 98 99 Respiratory 30 16 20 Rate Blood Pressure (mmHg) O2 Sat by Pulse 91 100 100 Oximetry 05/28/19 05/28/19 05/28/19 19:00 19:30 19:54 Temperature 100.4 F Pulse Rate 97 101 Respiratory 26 29 Rate Blood Pressure 142/85 (mmHg) O2 Sat by Pulse 100 100 Oximetry 05/28/19 05/28/19 05/28/19 20:00 20:30 21:00 Temperature 100.1 F Pulse Rate 128 116 109 Respiratory 36 27 19 Rate Blood Pressure 177/93 147/89 (mmHg) O2 Sat by Pulse 96 100 100 Oximetry 05/28/19 05/28/19 05/28/19 21:30 22:00 22:30 Temperature Pulse Rate 105 107 104 Respiratory 21 23 22 Rate Blood Pressure 138/98 (mmHg) O2 Sat by Pulse 100 100 100 Oximetry 05/28/19 05/28/19 05/28/19 22:48 22:52 23:00 Temperature Pulse Rate 103 Respiratory 25 25 24 Rate Blood Pressure 143/84 (mmHg) O2 Sat by Pulse 100 Oximetry 05/28/19 05/28/19 05/28/19 23:16 23:25 23:30 Temperature 100.1 F Pulse Rate 109 109 Respiratory 28 28 Rate Blood Pressure (mmHg) O2 Sat by Pulse 100 98 Oximetry 05/29/19 05/29/19 05/29/19 00:00 00:30 01:00 Temperature Pulse Rate 110 104 107 Respiratory 29 31 28 Rate Blood Pressure 146/85 148/87 (mmHg) O2 Sat by Pulse 99 99 96 Oximetry 05/29/19 05/29/19 05/29/19 01:30 01:50 01:53 Temperature Pulse Rate 105 Respiratory 30 31 30 Rate Blood Pressure (mmHg) O2 Sat by Pulse 100 Oximetry 05/29/19 05/29/19 05/29/19 02:00 02:30 02:38 Temperature Pulse Rate 106 109 Respiratory 31 34 30 Rate Blood Pressure 153/89 (mmHg) O2 Sat by Pulse 100 99 Oximetry 05/29/19 05/29/19 05/29/19 03:00 03:30 04:00 Temperature 99.8 F Pulse Rate 108 106 103 Respiratory 33 32 25 Rate Blood Pressure 157/88 152/87 (mmHg) O2 Sat by Pulse 98 100 100 Oximetry 05/29/19 05/29/19 05/29/19 04:30 04:36 05:00 Temperature Pulse Rate 103 104 Respiratory 30 28 34 Rate Blood Pressure 139/93 (mmHg) O2 Sat by Pulse 98 97 Oximetry 05/29/19 05/29/19 05/29/19 05:04 05:30 06:00 Temperature Pulse Rate 107 112 Respiratory 32 33 35 Rate Blood Pressure 162/99 (mmHg) O2 Sat by Pulse 97 92 Oximetry 05/29/19 05/29/19 05/29/19 06:20 06:30 06:52 Temperature Pulse Rate 112 114 115 Respiratory 32 37 35 Rate Blood Pressure 164/93 165/100 171/101 (mmHg) O2 Sat by Pulse 92 92 92 Oximetry 05/29/19 05/29/19 05/29/19 07:00 07:30 08:00 Temperature 101.7 F Pulse Rate 113 112 119 Respiratory 37 43 47 Rate Blood Pressure 170/98 168/96 171/94 (mmHg) O2 Sat by Pulse 95 94 91 Oximetry 05/29/19 05/29/19 05/29/19 08:30 09:00 09:30 Temperature Pulse Rate 123 127 126 Respiratory Rate Blood Pressure 205/115 169/99 173/100 (mmHg) O2 Sat by Pulse 100 100 100 Oximetry 05/29/19 05/29/19 10:00 10:22 Temperature Pulse Rate 127 Respiratory 21 Rate Blood Pressure 162/98 (mmHg) O2 Sat by Pulse Oximetry Intake and Output Last 24 Hours 05/27/19 05/28/19 05/29/19 05/30/19 06:59 06:59 06:59 06:59 Intake Total 3100 1391 2846 792 Output Total 2211 1265 864 0 Balance 478 948 6215 792 Weight 159 lb 13.362 oz 162 lb 6.4 oz 163 lb 1.6 oz Intake: IV Fluids 1315 102 KCl 102 NS (0.9%) 1315 IVPB 331 109 KCl 213 109 Magnesium sulfate 118 Medicated IV 674 454 112 Precedex 674 454 112 Oral 0 Tube Feeding 937 963 367 Tube Feeding Flush Amount 780 1200 Packed Cells 0 NG Tube Irrigate Amount 360 425 Output: Chest Tube #1 50 0 Urine 520 0 Maloney 1411 1215 344 Liquid Stool 800 0 Other 0 Other: Other Amount Description Thoracentesis O2: 50% trach collar, changed to vent Infusions: none Medications: Acetaminophen (Tylenol Adult Liq*) 650 mg PO Q6H PRN PRN Reason: MILD PAIN or TEMP > 100.4 Last Admin: 05/29/19 08:46 Dose: 650 mg Albuterol/Ipratropium (Duoneb (Albuterol 2.5 Mg/Ipratropium 0.5 Mg)) 1 neb INH Q4H PRN PRN Reason: SOB/WHEEZING Last Admin: 05/28/19 02:39 Dose: 1 neb Enoxaparin Sodium (Lovenox(*)) 70 mg SUBCUT Q12H [facility] Last Admin: 05/29/19 05:12 Dose: 70 mg Fentanyl Citrate (Fentanyl*) 25 mcg IV SLOW PU Q2H PRN PRN Reason: PAIN - SEVERE Finasteride (Proscar Tab*) 5 mg PO DAILY [facility] Last Admin: 05/29/19 08:46 Dose: 5 mg Folic Acid (Folvite Tab*) 1 mg PO DAILY [facility] Last Admin: 05/29/19 08:46 Dose: 1 mg Labetalol HCl (Trandate Iv*) 10 mg IV PUSH Q1H PRN PRN Reason: BLOOD PRESSURE Lactulose (Lactulose*) 30 ml PO BID [facility] Last Admin: 05/29/19 08:46 Dose: 30 ml Lorazepam (Ativan Inj*) 2 mg IV PUSH Q3H PRN PRN Reason: ANXIETY Last Admin: 05/29/19 01:50 Dose: 2 mg Miscellaneous (Ativan Pyxis Colon) 1 ea N/A .ATIVAN IV COLON PRN PRN Reason: PYXIS COLON Multivitamins (Theragran W/Minerals Liq*) 15 ml PO DAILY [facility] Last Admin: 05/29/19 08:46 Dose: 15 ml Olanzapine (Zyprexa Tab*) 2.5 mg PO Q12H [facility] Last Admin: 05/28/19 22:38 Dose: 2.5 mg Pantoprazole Sodium (Protonix Iv*) 40 mg IV DAILY [facility] Last Admin: 05/29/19 08:46 Dose: 40 mg Potassium Chloride (Potassium Chloride Liquid) 20 meq PO BID [facility] Last Admin: 05/29/19 08:46 Dose: 20 meq Rifaximin (Xifaxan*) 550 mg PO BID [facility] Last Admin: 05/29/19 08:46 Dose: 550 mg Simethicone (Mylicon Drops* Oralsyr) 40 mg PO BID PRN PRN Reason: bloating Last Admin: 03/23/20 16:14 Dose: 40 mg Thiamine HCl (Vitamin B-1 Tab*) 100 mg PO DAILY [facility] Last Admin: 05/29/19 08:46 Dose: 100 mg Vitamin A/Vitamin D (Vitamin A & D Oint*) 1 applic TOPICAL Q6H PRN PRN Reason: SKIN IRRITATION Physical Exam: Constitutional: Trached on trach collar, awake, alert, moderate distress, jaundiced Head: normocephalic, atraumatic Eyes: no pallor, no icterus ENT: dry mucous membranes Neck: soft, supple CVS: tachycardic, regular, no murmur Chest/Resp: bilateral air entry, rhonchi throughout, mild acc muscle use Abdomen/GI: soft, nontender, distended, BS+ Ext/Msk: warm, pulses+ Skin: intact, warm Neuro: trached on trach collar. Awake, alert, moderate distress, following commands. Moves upper extremities to command, bilateral extremities minimally. PERRL 3mm. Labs: Laboratory Results - last 24 hr 05/29/19 04:27 Sodium 144 Potassium 3.6 Chloride 114 H Carbon Dioxide 25 Anion Gap 5 BUN 25 H Creatinine 0.97 Est GFR ( Amer) 95.9 Est GFR (Non-Af Amer) 79.2 BUN/Creatinine Ratio 25.8 H Glucose 124 H Calcium 8.1 L Magnesium 1.8 L Imaging: Doppler BLE 05/22: echogenic material which is nonocclusive in the distal right femoral vein which may represent nonocclusive thrombus or sequela from prior venous thrombus Chest xray 05/25: Similar bibasilar airspace opacification, small left pleural effusion, post op changes right perihilar region. KUB 05/25: tip of enteric tube terminates in the gastric pylorus Echo 05/26: EF 55-60% Abdomen/pelvis CT 05/26: partially imaged left lower lobe pulmonary abscess with bibasilar ground glass opacification. Small left pleural effusion, cirrhosis, small volume ascites CTH 05/26: No acute changes Chest xray 05/27: Small dependent left pleural effusion appears increaseed, consolidation in the left mid to lower lung zone Chest xray 05/28: similar to previous study Assessment: 59M w/pmhx of polysubstance abuse, opiate use, ETOH abuse, COPD, LUng Cancer s/ p right lobectomy; presented to ER 05/05 for cough/sob, hypoxia, left lower lobe pneumonia, started on sepsis protocol, Vapotherm for O2 support. He was noted to have intermittent tachycardia suspected to be SVT/sinus tachy. He was started precedex for withdrawal, opiate vs alcohol. He had a GI bleed 05/07. He was intubated on 05/08 for progressive hypoxia, secretions+. A bronchoscopy was done 05/10 and 05/12. Extubated 05/14 and reintubated 05/18. Trach on 05/24. -Delirium -Left lower lobe pneumonia, unspec organism, currently r/o abscess -Acute hypoxic respiratory failure -Cirrhosis -left pleural effusion, exudative in nature; s/p thoracentesis 05/13; s/p Chest tube 05/18 - Bronchoscopy 05/10 and 05/12, TLC 05/09 - COPD - h/o polysubstance abuse -Elevated ammonia - DVT right femoral vein Plan: Neuro- - Delirium: acute. QTC is prolonged. - Will use ativan PRN. - Precedex off. Continue low dose zyprexa. -h/o etoh abuse; cont thiamine 100mg po daily, multivitamins -hyperammonemia: decreased lactulose BID - Stroke-like symptoms: acute and resolved. CTH negative. - Neuro is on board CVS- - HTN: intermittent. Treat with PRN labetalol for now, since tachycardic - Doppler 05/24/19 revealed DVT right femoral vein, unknown if chronic or acute. Nonocclusive. Continue lovenox 70mg BID -Maintain MAP>65 as long as SBP<160 Resp- - Patient was doing well for about 24hr on trach collar. On 05/27, he had sudden drop in O2 saturation, tachypnea, tachycardia. Bagged and suctioned with a large amount of sputum and a large mucous plug brought up. Did well with vapotherm overnight but this AM, started experiencing tachypnea 40-50'4, tachycardia and hypertension. Placed back on vent, will do CTA chest to r/o PE. - CT concerned for left lung abscess. Will need drainage with IR. - ID on board -Wean Fio2 to keep sat>92% -Bronchodilators PRN, Aspiration prec, Pulmonary Toilet ID- - Concern for left lung abscess. Will need drainage with IR. - Consulted ID. GI- - Continue PPI daily - Ok to continue TF. -hyperammonemia: continue lactulose BID. Renal- -hypernatremia: FWF 200cc q4hr. - maloney remove 05/27. voiding well -strict I/O, replete to keep K>4, Mg>2 Heme- -anemia: improved. H/H stable Endo-Maintain BG<200, insulin protocol as needed Musculsk- pressure ulcer prophylaxis. bedrest for today Wounds- none Nutrition- TF DVT prophylaxis: therapeutic lovenox GI prophylaxis: ppi Central Line: yes 05/09 Maloney Catheter: yes Left Chest tube 05/18 Disposition: Patient back on the vent. He requires ICU for acute hypoxic respiratory failure Patient clinical status: critical Code Status: full code Critical Care Time: 30mins
[2019-05-29 12:17] LABS: C Reactive Protein 53.1 mg/L (<8.01)
--- NOTE | 2019-05-29 14:46 | CONS ---
CONSULTATION REPORT: DATE OF CONSULT: 05/29/19 PRIMARY CARE PROVIDER: Miguel Ángel Jones NP PROVIDER REQUESTING CONSULTATION: Dr. Toi Painter. SERVICE: Infectious Diseases. PROVIDER: Rosio Castro NP ATTENDING PROVIDER: Dr. Erick Partida* (Rosio Castro NP). IMPRESSION: 1. Left lung abscess. The patient is noted on CT scan from 05/26/19 to have worsening right lower lobe aspiration pneumonia with a stable left lower lobe intrapulmonary abscess. The patient is febrile this morning with temperature of 101.7. Has had intermittent leukocytosis that has currently resolved. He initially presented to the hospital with a productive cough, chills, progressive dyspnea, was found to be hypoxemic and admitted for a left lower lobe infiltrate. During his course in the ICU, his respiratory status deteriorated, he ultimately was intubated and then underwent tracheotomy. He was doing well on a trach collar until he worsened overnight and now is back on the ventilator via tracheotomy. Noted to have a significantly elevated CRP on admission. Influenza A and B negative at time of admission. He had a parapneumonic effusion and is status post chest tube placement. I also questioned if this could be a mass secondary to malignancy in the setting of history of lung cancer. 2. Pneumonia, left lower lobe. Community acquired on admission. With a left sided parapneumonic effusion and status post chest tube placement during admission. Noted to have right lower lobe aspiration pneumonia during hospitalization. 3. Acute hypoxic respiratory failure, currently mechanically ventilated. 4. Chronic obstructive pulmonary disease and right lung cancer, status post right upper lobectomy. 5. Alcoholic cirrhosis. RECOMMENDATIONS/PLAN: Will start Ceftriaxone 2 gm IV daily and Vancomycin, trough goal 15-20. Recommend discussing with Interventional Radiology if they are able to aspirate or place a pigtail drain in the area of this abscess. Will add a CRP to the last labs. Agree with CTA. Will also check for Influenza. HISTORY OF PRESENT ILLNESS: Mr. Alcaraz is a 59-year-old male with past medical history significant for COPD; right lung cancer, status post right upper lobectomy; history of multiple trauma including liver laceration; tobacco abuse, who presented to the hospital with complaints of cough, chills, progressive dyspnea. It is to note I am unable to perform review of systems and the patient's history is obtained from the electronic medical record as the patient is unable to participate due to tracheotomy. While in the emergency room, the patient was found to have a left base pneumonia. He was placed on a course of antibiotics. He was influenza A and B negative. His CRP was significantly elevated at 370.21. He was ultimately referred to the cable splicer service and admitted to the intensive care unit. While in the ICU, the patient underwent a transthoracic echocardiogram with no signs of vegetation, normal systolic function. His respiratory status deteriorated. He was ultimately intubated and on a mechanical ventilator. On 05/25/19, he underwent a tracheotomy and had been able to be off of the ventilator and on a trach collar. He had a CT scan on 05/26/19 showing findings of post tracheotomy, intervally worsened right lower lobe aspiration pneumonia, a stable left lower lobe intrapulmonary abscess in addition to a chest tube on the left. He had undergone a chest tube in the setting of a parapneumonic effusion. Ultimately, the patient deteriorated enough last night to require mechanical ventilation again. This morning, he is noted to be febrile. He is tachycardic, tachypneic. He had previously been on azithromycin , ceftriaxone, cefepime, and vancomycin. The patient was noted to have sudden drop in oxygen saturations with tachypnea, tachycardia last night. He had a large mucus plug and had Vapotherm overnight, but again developed tachypnea, tachycardia, and hypertension and was placed back on the ventilator. He has a CTA pending at this time. The patient had a chest CT on 05/26/19 showing post tracheotomy, interval worsening right lower lobe aspiration pneumonia, stable left lower lobe intrapulmonary abscess, chest tube. PAST MEDICAL HISTORY: 1. COPD. 2. Right upper lobe lung cancer. 3. History of multiple trauma including liver laceration in 2017. 4. Tobacco abuse history. PAST SURGICAL HISTORY: Status post right upper lobectomy. MEDICATIONS: Hospital medications: 1. Acetaminophen 650 mg by mouth every 6 hours as needed for fever or pain. 2. DuoNeb 1 neb inhalation every 4 hours as needed for shortness of breath or wheezing. 3. Lovenox 70 mg subcutaneous every 12 hours. 4. Finasteride 5 mg by mouth daily. 5. Fentanyl 25 mcg IV push every 2 hours as needed for severe pain. 6. Folic acid 1 mg by mouth daily. 7. Labetalol 10 mg IV every 1 hour as needed for hypertension. 8. Lactulose 30 mL by mouth twice daily. 9. Lorazepam 2 mg IV every 3 hours as needed for anxiety. 10. Multivitamin 15 mL by mouth daily. 11. Zyprexa 2.5 mg by mouth every 12 hours. 12. Protonix 40 mg IV daily. 13. Potassium chloride 20 mEq by mouth twice daily. 14. Rifaximin 550 mg by mouth twice daily. 15. Simethicone 40 mg by mouth twice daily as needed for bloating. 16. Thiamine 100 mg by mouth daily. 17. Vitamin A and D ointment apply topical every 6 hours as needed for skin irritation. Home medications: 1. Hydrochlorothiazide 12.5 mg by mouth daily. 2. Metoprolol succinate 100 mg by mouth daily. 3. Hydrocodone/acetaminophen 7.5/325 mg, 15 mL by mouth every 6 hours as needed for pain. 4. Hydrocodone/acetaminophen 7.5/300 one tablet by mouth 3 times daily as needed for pain. 5. Gabapentin 300 mg by mouth 3 times daily. 6. Doxycycline 100 mg by mouth daily. ALLERGIES: LISINOPRIL caused angioedema. FAMILY HISTORY: Unable to obtain from the patient. According to his previous H and P, family history of hypertension. SOCIAL HISTORY: According to his H and P, drinks approximately 6 beers daily and uses marijuana. He is a former smoker, smoking half-a-pack a day for approximately 15-year period. REVIEW OF SYSTEMS: Unable to perform review of systems as the patient is currently mechanically ventilated with a tracheotomy. PHYSICAL EXAM: Vital Signs: Temperature 101.7, heart rate 125, respiratory rate 26, O2 sat 100% on mechanical ventilator, and blood pressure 162/98. General Appearance: Alert, sedated, in no acute distress, lying in bed. Head: Normocephalic, atraumatic. EENT: Extraocular movements are intact. No subconjunctival hemorrhage. Moist mucous membranes. Neck: Supple. No lymphadenopathy. Neurological: He is alert. Unable to determine orientation. Moving all extremities spontaneously. Cardiovascular: Regular rate and rhythm. S1 and S2 present. No murmurs, rubs, or gallops heard. Respiratory: No accessory muscle use. Lung sounds with scattered rhonchi throughout. Decreased breath sounds in the left lower base. Abdomen: Bowel sounds present. Abdomen is soft, nontender, nondistended. Extremities: No lower extremity edema. Musculoskeletal: No clubbing or cyanosis noted. Psychological : Calm and cooperative. Skin: No rashes or abnormalities seen on the exposed skin. He had previously been documented as having skin breakdown to his buttocks. DIAGNOSTIC STUDIES/LAB DATA: Sodium 144, potassium 3.6, chloride 114, CO2 of 25 , BUN 25, creatinine 0.97, glucose 124. White blood cell count 10, hemoglobin 9.2, hematocrit 29, platelet count 131. Sputum with yeast. Blood cultures with no growth to date. CRP from 05/06/19 was 370.21. Please see impression and recommendations outlined above, recommendations have been discussed with Dr. Toi Painter and Cassi Sotomayor NP. Thank you for asking us to see Mr. Alcaraz in consultation. The case has been discussed with my attending, Dr. Erick Partida, who agrees with the plan of care. Reviewed by CHARITO BOLAND 05/31/192009 [id number]/[facility] #: [id number] MARTHA
[2019-05-29 17:42] LABS: Influenza A Molecular Negative (Negative); Influenza B Molecular Negative (Negative)
[2019-05-29] MEDS ORDERED: Vancomycin per Pharmacy* NOTE FOLLOW UP SCH (18:00)
[2019-05-29] MEDS ORDERED: Vancomycin(*) 1,250 MG in NS 0.9% 250 ML* 250 ML IVPB ONE (18:00)
[2019-05-29] MEDS: cefTRIAXone(*) 2 GM in NS 0.9% 100 ML* 100 ML IVPB SCH (19:30)
[2019-05-29] MEDS: SIMETHICONE SUSP* ORALSYR 66.66 MG/ML PO PRN (20:03)
[2019-05-29] MEDS: Nystatin TOP POWDER* 15 GM BTL TOPICAL SCH (20:04)
[2019-05-30] MEDS: LORazepam INJ* 2 MG/ML 1 ML VIAL IV PUSH PRN ×3 (01:13→21:56)
[2019-05-30] MEDS: Vancomycin(*) 1,000 MG in NS 0.9% 250 ML* 250 ML IV SCH ×3 (01:24→17:11)
[2019-05-30] MEDS: Enoxaparin(*) 80 MG/0.8 ML SYR SUBCUT SCH ×2 (05:17→17:10)
[2019-05-30 06:22] LABS: BUN/Creatinine Ratio 22.7 (8-20); Calcium 8.2 mg/dL (8.6-10.3); EGFR Non-African American 106.6 (>60); Magnesium 1.8 mg/dL (1.9-2.7); Potassium 3.7 mmol/L (3.5-5.0)
[2019-05-30] MEDS: Labetalol IV* 5 MG/ML 20 ML VIAL IV PUSH PRN ×5 (07:19→21:21)
[2019-05-30] MEDS: Multivitamins ADULT w/MIN LIQ* 15 ML UDC PO SCH (08:11)
[2019-05-30] MEDS: Pantoprazole IV* 40 MG IV SCH (08:11)
[2019-05-30] MEDS: Furosemide IV* 10 MG/ML 2 ML VIAL (20 MG) IV SLOW PU SCH ×2 (08:12→20:04)
[2019-05-30] MEDS: Nystatin TOP POWDER* 15 GM BTL TOPICAL SCH ×2 (08:12→20:04)
[2019-05-30] MEDS: Finasteride TAB* 5 MG PO SCH (08:12)
[2019-05-30] MEDS: Folic Acid TAB* 1 MG PO SCH (08:12)
[2019-05-30] MEDS: Thiamine TAB* 100 MG TAB PO SCH (08:12)
[2019-05-30] MEDS: RiFAXimin* 550 MG TAB PO SCH ×2 (08:12→20:03)
[2019-05-30] MEDS: Potassium Chloride* LIQUID 20 MEQ/15 ML UDC PO SCH ×2 (08:13→20:03)
[2019-05-30] MEDS ORDERED: Acetylcysteine INHALATION SOL* 200 MG/ML NEB.SOLN 10 ML INH SCH ×2 (10:00→19:00)
[2019-05-30] MEDS ORDERED: Sodium Chloride(INHALANT)0.9%* 5 ML NEB.SOLN INH SCH ×2 (10:00→19:00)
[2019-05-30] MEDS: OLANzapine TAB* 5 MG PO SCH ×2 (10:50→23:49)
--- NOTE | 2019-05-30 10:58 | PN ---
Progress Note - Progress Note Date of Service: 05/30/19 Note: Progress Note -- Critical Care 24 hour events/significant events: - overnight, patient required 2 doses of ativan for agitation and restlessness - This AM he appears more withdrawn and restless. ROS: ROS unable to be obtained secondary to tracheostomy and AMS Tele: NSR Vitals: Vital Signs 05/29/19 05/29/19 05/29/19 17:00 17:30 18:00 Temperature Pulse Rate 85 84 84 Respiratory 21 21 Rate Blood Pressure 144/87 157/88 174/97 (mmHg) O2 Sat by Pulse 100 100 100 Oximetry 05/29/19 05/29/19 05/29/19 18:30 18:31 19:00 Temperature Pulse Rate 86 85 89 Respiratory 18 Rate Blood Pressure 167/89 (mmHg) O2 Sat by Pulse 100 100 100 Oximetry 05/29/19 05/29/19 05/29/19 19:01 19:03 19:30 Temperature Pulse Rate 91 90 88 Respiratory Rate Blood Pressure 194/136 174/96 168/89 (mmHg) O2 Sat by Pulse 100 100 100 Oximetry 05/29/19 05/29/19 05/29/19 19:38 19:51 20:00 Temperature 98.7 F Pulse Rate 85 Respiratory 18 20 Rate Blood Pressure 141/82 (mmHg) O2 Sat by Pulse 100 Oximetry 05/29/19 05/29/19 05/29/19 20:30 21:00 21:30 Temperature Pulse Rate 86 84 87 Respiratory 17 Rate Blood Pressure 147/74 154/89 187/101 (mmHg) O2 Sat by Pulse 100 100 100 Oximetry 05/29/19 05/29/19 05/29/19 21:46 22:00 22:18 Temperature Pulse Rate 88 Respiratory 21 18 Rate Blood Pressure 150/89 (mmHg) O2 Sat by Pulse 100 Oximetry 05/29/19 05/29/19 05/29/19 22:30 22:56 23:00 Temperature Pulse Rate 88 87 Respiratory 18 Rate Blood Pressure 155/91 150/88 (mmHg) O2 Sat by Pulse 100 100 Oximetry 05/29/19 05/29/19 05/29/19 23:30 23:32 23:41 Temperature 98.6 F Pulse Rate 92 Respiratory 22 Rate Blood Pressure 153/88 (mmHg) O2 Sat by Pulse 100 Oximetry 05/30/19 05/30/19 05/30/19 00:00 00:06 00:30 Temperature Pulse Rate 95 95 97 Respiratory Rate Blood Pressure 132/94 159/91 (mmHg) O2 Sat by Pulse 98 94 99 Oximetry 05/30/19 05/30/19 05/30/19 00:52 01:00 01:13 Temperature Pulse Rate 100 Respiratory 24 22 Rate Blood Pressure 165/98 (mmHg) O2 Sat by Pulse 100 Oximetry 05/30/19 05/30/19 05/30/19 01:30 02:00 02:30 Temperature Pulse Rate 93 91 92 Respiratory 18 Rate Blood Pressure 160/99 171/83 163/97 (mmHg) O2 Sat by Pulse 98 100 100 Oximetry 05/30/19 05/30/19 05/30/19 03:00 03:11 03:30 Temperature 97.6 F Pulse Rate 91 93 Respiratory 27 Rate Blood Pressure 159/82 144/86 (mmHg) O2 Sat by Pulse 98 99 Oximetry 05/30/19 05/30/19 05/30/19 03:44 04:00 04:30 Temperature Pulse Rate 93 97 Respiratory 27 Rate Blood Pressure 163/97 (mmHg) O2 Sat by Pulse 99 100 Oximetry 05/30/19 05/30/19 05/30/19 04:31 04:44 05:00 Temperature Pulse Rate 95 97 Respiratory 23 Rate Blood Pressure 160/92 156/103 (mmHg) O2 Sat by Pulse 100 99 Oximetry 05/30/19 05/30/19 05/30/19 05:30 05:45 06:00 Temperature Pulse Rate 102 99 Respiratory 24 Rate Blood Pressure 180/95 163/93 (mmHg) O2 Sat by Pulse 98 100 Oximetry 05/30/19 05/30/19 05/30/19 06:30 06:39 07:00 Temperature Pulse Rate 97 95 Respiratory 21 Rate Blood Pressure 152/91 159/84 (mmHg) O2 Sat by Pulse 100 100 Oximetry 05/30/19 05/30/19 05/30/19 07:18 07:29 07:30 Temperature 97.8 F Pulse Rate 79 Respiratory 21 Rate Blood Pressure 151/90 (mmHg) O2 Sat by Pulse 100 Oximetry 05/30/19 05/30/19 05/30/19 08:00 08:30 09:00 Temperature Pulse Rate 82 84 85 Respiratory 21 Rate Blood Pressure 141/77 155/94 (mmHg) O2 Sat by Pulse 100 100 99 Oximetry 05/30/19 05/30/19 05/30/19 09:30 10:00 10:30 Temperature Pulse Rate 90 90 93 Respiratory 21 Rate Blood Pressure 155/91 148/88 174/95 (mmHg) O2 Sat by Pulse 100 98 100 Oximetry 05/30/19 05/30/19 05/30/19 11:00 11:17 11:22 Temperature Pulse Rate 100 Respiratory 19 25 Rate Blood Pressure 176/113 (mmHg) O2 Sat by Pulse 100 Oximetry 05/30/19 05/30/19 05/30/19 11:30 12:00 12:30 Temperature 97.6 F Pulse Rate 84 83 85 Respiratory 25 Rate Blood Pressure 159/79 154/90 134/80 (mmHg) O2 Sat by Pulse 100 100 91 Oximetry 05/30/19 05/30/19 05/30/19 12:47 12:52 12:59 Temperature Pulse Rate 84 Respiratory 21 21 Rate Blood Pressure 148/88 (mmHg) O2 Sat by Pulse 98 Oximetry 05/30/19 05/30/19 05/30/19 13:00 13:30 14:00 Temperature Pulse Rate 82 80 85 Respiratory 26 Rate Blood Pressure 118/74 118/75 (mmHg) O2 Sat by Pulse 99 96 99 Oximetry 05/30/19 05/30/19 05/30/19 14:01 14:30 15:00 Temperature Pulse Rate 84 92 92 Respiratory 22 Rate Blood Pressure 148/89 170/95 151/93 (mmHg) O2 Sat by Pulse 98 94 93 Oximetry 05/30/19 05/30/19 05/30/19 15:30 15:59 16:00 Temperature 97.8 F Pulse Rate 92 100 Respiratory 22 Rate Blood Pressure 179/105 160/102 (mmHg) O2 Sat by Pulse 95 96 Oximetry 05/30/19 16:22 Temperature Pulse Rate Respiratory Rate Blood Pressure (mmHg) O2 Sat by Pulse 95 Oximetry Intake and Output Last 24 Hours 05/28/19 05/29/19 05/30/19 05/31/19 06:59 06:59 06:59 06:59 Intake Total 1391 2846 3372 1231 Output Total 4690 227 3121 650 Balance 126 1982 2287 581 Weight 162 lb 6.4 oz 163 lb 1.6 oz 164 lb 4.787 oz Intake: IV Fluids 102 82 0 KCl 102 Magnesium sulfate 0 NS (0.9%) 82 IVPB 109 675 KCl 109 Magnesium sulfate 50 NS (0.9%) 625 Medicated IV 454 112 339 ABX 339 Precedex 454 112 Oral 0 Tube Feeding 777 686 5733 527 Tube Feeding Flush Amount 1200 800 365 Packed Cells 0 NG Tube Irrigate Amount 360 455 Output: Chest Tube #1 50 0 Pigtail Drain 0 Urine 520 585 650 Maloney 1215 344 Liquid Stool 500 Other 0 Other: Estimated Void Large Large Other Amount Description Thoracentesis # Voids 1 1 O2: vent: CMV 12/450/30%/+5 Infusions: none Medications: Acetaminophen (Tylenol Adult Liq*) 650 mg PO Q6H PRN PRN Reason: MILD PAIN or TEMP > 100.4 Last Admin: 05/29/19 08:46 Dose: 650 mg Acetylcysteine (Mucomyst Inhalation Christie*) 500 mg INH Q8H [facility] Stop: 06/01/19 11:01 Albuterol/Ipratropium (Duoneb (Albuterol 2.5 Mg/Ipratropium 0.5 Mg)) 1 neb INH Q4H PRN PRN Reason: SOB/WHEEZING Last Admin: 05/28/19 02:39 Dose: 1 neb Enoxaparin Sodium (Lovenox(*)) 70 mg SUBCUT Q12H [facility] Last Admin: 05/30/19 05:17 Dose: 70 mg Fentanyl Citrate (Fentanyl*) 25 mcg IV SLOW PU Q2H PRN PRN Reason: PAIN - SEVERE Last Admin: 05/30/19 11:17 Dose: 25 mcg Finasteride (Proscar Tab*) 5 mg PO DAILY [facility] Last Admin: 05/30/19 08:12 Dose: 5 mg Folic Acid (Folvite Tab*) 1 mg PO DAILY [facility] Last Admin: 05/30/19 08:12 Dose: 1 mg Furosemide (Lasix Iv*) 20 mg IV SLOW PU Q12H [facility] Last Admin: 05/30/19 08:12 Dose: 20 mg Ceftriaxone Sodium 2 gm/ (Sodium Chloride) 100 mls @ 200 mls/hr IVPB Q24H [facility] Last Admin: 05/29/19 19:30 Dose: 200 mls/hr Vancomycin HCl 1,000 mg/ (Sodium Chloride) 250 mls @ 166.667 mls/hr IV Q8H [facility] Last Admin: 05/30/19 09:27 Dose: 166.667 mls/hr Labetalol HCl (Trandate Iv*) 10 mg IV PUSH Q1H PRN PRN Reason: BLOOD PRESSURE Last Admin: 05/30/19 16:23 Dose: 10 mg Lactulose (Lactulose*) 30 ml PO BID [facility] Last Admin: 05/30/19 08:11 Dose: 30 ml Lorazepam (Ativan Inj*) 2 mg IV PUSH Q3H PRN PRN Reason: ANXIETY Last Admin: 05/30/19 11:22 Dose: 2 mg Miscellaneous (Ativan Pyxis Colon) 1 ea N/A .ATIVAN IV COLON PRN PRN Reason: PYXIS COLON Multivitamins (Theragran W/Minerals Liq*) 15 ml PO DAILY [facility] Last Admin: 05/30/19 08:11 Dose: 15 ml Nystatin (Nystatin Top Powder*) 1 applic TOPICAL BID [facility] Last Admin: 05/30/19 08:12 Dose: 1 applic Olanzapine (Zyprexa Tab*) 2.5 mg PO Q12H [facility] Last Admin: 05/30/19 10:50 Dose: 2.5 mg Pantoprazole Sodium (Protonix Iv*) 40 mg IV DAILY [facility] Last Admin: 05/30/19 08:11 Dose: 40 mg Pharmacy Consult (Vancomycin Per Pharmacy*) 1 note FOLLOW UP .VANC PER PHARMACY [facility]; Protocol Pharmacy Profile Note (Vancomycin Trough Check) 1 note FOLLOW UP 09 ONE Stop: 05/31/19 09:31 Potassium Chloride (Potassium Chloride Liquid) 20 meq PO BID [facility] Last Admin: 05/30/19 08:13 Dose: 20 meq Rifaximin (Xifaxan*) 550 mg PO BID [facility] Last Admin: 05/30/19 08:12 Dose: 550 mg Simethicone (Mylicon Drops* Oralsyr) 40 mg PO BID PRN PRN Reason: bloating Last Admin: 05/29/19 20:03 Dose: 40 mg Sodium Chloride (Sodium Chloride(Inhalant)0.9%*) 2.5 ml INH Q8H [facility] Stop: 06/01/19 11:01 Thiamine HCl (Vitamin B-1 Tab*) 100 mg PO DAILY [facility] Last Admin: 05/30/19 08:12 Dose: 100 mg Vitamin A/Vitamin D (Vitamin A & D Oint*) 1 applic TOPICAL Q6H PRN PRN Reason: SKIN IRRITATION Physical Exam: Constitutional: Trached on the vent, opens eyes sponanteously. No distress, jaundiced Head: normocephalic, atraumatic Eyes: no pallor, no icterus ENT: dry mucous membranes Neck: soft, supple CVS: normal rhythm, regular, no murmur Chest/Resp: bilateral air entry, rhonchi throughout, no acc muscle use Abdomen/GI: soft, nontender, distended, BS+ Ext/Msk: warm, pulses+, left hand edema nonpitting, found in a dependent position Skin: intact, warm Neuro: trached on vent, opens eyes spontaneously, no distress. Follows minimal commands. Moves upper extremities spontaneously, bilateral extremities minimally. PERRL 3mm. Labs: Laboratory Results - last 24 hr 05/29/19 05/30/19 16:50 05:40 Sodium 146 H Potassium 3.7 Chloride 115 H Carbon Dioxide 25 Anion Gap 6 BUN 17 Creatinine 0.75 Est GFR ( Amer) 129.0 Est GFR (Non-Af Amer) 106.6 BUN/Creatinine Ratio 22.7 H Glucose 109 H Calcium 8.2 L Magnesium 1.8 L Influenza A (Rapid) Negative Influenza B (Rapid) Negative Imaging: Doppler BLE 05/22: echogenic material which is nonocclusive in the distal right femoral vein which may represent nonocclusive thrombus or sequela from prior venous thrombus Chest xray 05/25: Similar bibasilar airspace opacification, small left pleural effusion, post op changes right perihilar region. KUB 05/25: tip of enteric tube terminates in the gastric pylorus Echo 05/26: EF 55-60% Abdomen/pelvis CT 05/26: partially imaged left lower lobe pulmonary abscess with bibasilar ground glass opacification. Small left pleural effusion, cirrhosis, small volume ascites CTH 05/26: No acute changes Chest xray 05/27: Small dependent left pleural effusion appears increaseed, consolidation in the left mid to lower lung zone Chest xray 05/28: similar to previous study Assessment: 59M w/pmhx of polysubstance abuse, opiate use, ETOH abuse, COPD, LUng Cancer s/ p right lobectomy; presented to ER 05/05 for cough/sob, hypoxia, left lower lobe pneumonia, started on sepsis protocol, Vapotherm for O2 support. He was noted to have intermittent tachycardia suspected to be SVT/sinus tachy. He was started precedex for withdrawal, opiate vs alcohol. He had a GI bleed 05/07. He was intubated on 05/08 for progressive hypoxia, secretions+. A bronchoscopy was done 05/10 and 05/12. Extubated 05/14 and reintubated 05/18. Trach on 05/24. -Delirium -Left lower lobe pneumonia - Left lower lobe abscess -Acute hypoxic respiratory failure -Cirrhosis -left pleural effusion, exudative in nature; s/p thoracentesis 05/13; s/p Chest tube 05/18 - Bronchoscopy 05/10 and 05/12, TLC 05/09 - COPD - h/o polysubstance abuse -Elevated ammonia - DVT right femoral vein Plan: Neuro- - Delirium: acute. - Will use ativan PRN. - Continue low dose zyprexa. -h/o etoh abuse; cont thiamine 100mg po daily, multivitamins -hyperammonemia: continue lactulose BID CVS- - HTN: intermittent. Treat with PRN labetalol. Will restart lasix 20BID and reassess later in the day. - Doppler 05/24/19 revealed DVT right femoral vein, unknown if chronic or acute. Nonocclusive. Continue lovenox 70mg BID -Maintain MAP>65 as long as SBP<160 Resp- - Patient was doing well for about 24hr on trach collar. On 05/27, he had sudden drop in O2 saturation, tachypnea, tachycardia. Bagged and suctioned with a large amount of sputum and a large mucous plug brought up. Did well with vapotherm overnight but this AM, started experiencing tachypnea 40-50's, tachycardia and hypertension. - CTA chest was negative for CT - CT concerning for left lung abscess. Will need drainage with IR. - ID on board and antibiotics are started - Started having significant amount of bleeding from trach site. Appears that he may have been pulling on tubing from vent/trach. Packed and contacted ENT. Restraints applied -Wean Fio2 to keep sat>92% -Bronchodilators PRN, Aspiration prec, Pulmonary Toilet - Daily PST as tolerated ID- - Concern for left lung abscess. Will need drainage with IR. - Consulted ID, started on antibiotics GI- - Continue PPI daily - Ok to continue TF. -hyperammonemia: continue lactulose BID. Renal- -hypernatremia: FWF 200cc q4hr. - maloney remove 05/27. voiding well -strict I/O, replete to keep K>4, Mg>2 Heme- -anemia: improved. H/H stable Endo-Maintain BG<200, insulin protocol as needed Musculsk- pressure ulcer prophylaxis. bedrest for today Wounds- none Nutrition- TF DVT prophylaxis: therapeutic lovenox GI prophylaxis: ppi Central Line: yes 05/09 Maloney Catheter: yes Left Chest tube 05/18 Disposition: He requires ICU for acute hypoxic respiratory failure Patient clinical status: critical Code Status: full code Critical Care Time: 30mins
[2019-05-30] MEDS: fentaNYL* 50 MCG/ML 2 ML VIAL (100 MCG VIAL) IV SLOW PU PRN ×2 (11:17→21:45)
[2019-05-30] MEDS ORDERED: fentaNYL* 50 MCG/ML 2 ML VIAL (100 MCG VIAL) ONE ×2 (12:36→12:46)
[2019-05-30] MEDS ORDERED: fentaNYL* 50 MCG/ML 2 ML VIAL (100 MCG VIAL) IV SLOW PU ONE (12:45)
[2019-05-30] MEDS ORDERED: fentaNYL* 50 MCG/ML 2 ML VIAL (100 MCG VIAL) IV ONE (12:45)
[2019-05-30] MEDS: cefTRIAXone(*) 2 GM in NS 0.9% 100 ML* 100 ML IVPB SCH (20:02)
[2019-05-31] MEDS: fentaNYL* 50 MCG/ML 2 ML VIAL (100 MCG VIAL) IV SLOW PU PRN (00:17)
[2019-05-31] MEDS: LORazepam INJ* 2 MG/ML 1 ML VIAL IV PUSH PRN (00:17)
[2019-05-31] MEDS ORDERED: Atropine SYRINGE* 0.1 MG/ML 10 ML SYRINGE (1 MG) ONE ×2 (02:00→02:01)
[2019-05-31] MEDS ORDERED: Cisatracurium* 2 MG/ML MDV 10 ML IVPB ONE (02:00)
[2019-05-31] MEDS ORDERED: EPINEPHrine SYR 0.1MG/ML* SYRINGE ONE ×2 (02:02→02:15)
[2019-05-31] MEDS ORDERED: Sodium Bicarbonate 8.4%* 50 ML SYRINGE ONE ×2 (02:06→02:15)
[2019-05-31] MEDS ORDERED: Norepinephrine 16MCG/ML IVPRE* 0 MCG/0 ML BAG IV ONE (02:10)
[2019-05-31] MEDS ORDERED: Norepinephrine 16MCG/ML IVPRE* (4 MG/250 ML) in NS 0.9% IV ONE (02:15)
[2019-05-31 02:26] LABS: Hematocrit 28 % (42-52); Hemoglobin 8.3 g/dL (14.0-18.0); Mean Corpuscular HGB Conc 30 g/dL (31-36); Mean Corpuscular Hemoglobin 31 pg (27-31); Mean Corpuscular Volume 101 fL (80-94); Mean Platelet Volume 10.9 fL (7.4-10.4); Platelet Count 189 10^3/uL (150-450); Red Blood Count 2.73 10^6 /uL (4.18-5.48); Red Cell Distribution Width 17 % (10-15); White Blood Count 22.7 10^3/uL (3.5-10.8)
[2019-05-31 02:32] LABS: Activated Partial Thrombo Time 42.6 seconds (26.0-38.0); INR 1.22 (0.82-1.09)
[2019-05-31 02:40] VITALS: BP 45/34
[2019-05-31 02:41] LABS: BUN/Creatinine Ratio 14.3 (8-20); Blood Urea Nitrogen 13 mg/dL (6-24); CO2 Carbon Dioxide 27 mmol/L (22-32); Calcium 7.8 mg/dL (8.6-10.3); EGFR African American 103.2 (>60); EGFR Non-African American 85.3 (>60); Glucose 152 mg/dL (70-100); Phosphorus 5.2 mg/dL (2.5-5.0)
[2019-05-31 02:46] LABS: Anion Gap 4 mmol/L (2-11); Chloride 117 mmol/L (101-111); Potassium 5.2 mmol/L (3.5-5.0); Sodium 148 mmol/L (135-145); Troponin I 0.08 ng/mL (<0.03)
--- NOTE | 2019-05-31 02:46 | PN ---
Hospitalist Progress Note Date of Service: 05/31/19 Patient in ICU with the following medical issues:-Delirium -Left lower lobe pneumonia - Left lower lobe abscess -Acute hypoxic respiratory failure -Cirrhosis -left pleural effusion, exudative in nature; s/p thoracentesis 05/13; s/p Chest tube 05/18 - Bronchoscopy 05/10 and 05/12, TLC 3/5 - COPD - h/o polysubstance abuse -Elevated ammonia - DVT right femoral vein 0100 hours Was called to evaluate a patient desating in the low 80s and bleeding from tracheotomy site. Patient was evaluated, unresponsive but with deep sternal pressure reacts with eyes opening and grunting. Met patient with Respiratory bagging him and stated he was not oxygenating with ventilator. Ordered suctioning stat and copious amount of blood suctioned from trach site. Was said patient pulled on trach earlier on today. Patient met with trach site dressing wet with blood. Vitals BP 73/42, HR 116, Pulse 121, RR 27. CXR ordered stat at bedside. CXR reviewed and no evidence of pneumothorax, hemothorax. ABG ordered as well. Started patient on NS 1000 ml bolus after Press Setup Operator technical operations specialist was alerted. He was in agreement. Ventillator was reviewed changed and yet patient was not oxygenating. Ambu bagging was continued and patient became more hemodynamically stable with BP 149/48, HR 115, RR 15 and SPO2 95%. 10 minutes later patient coded (Code blue) BP 70/39, HR 34, SPO2 81% and since patient is full code, code blue protocol initiated at 0200 hours and lasted for 30 minutes. Code stopped at 0230 hours. Patient's sister (Vicky) called and informed of the code and all efforts the team made. Her permission to end the code was sought and she was in agreement after explaining the futility of continuing code with no response. She was asked to come but she said she lives an hour away and will come later. On the interim a family friend came in and was also informed of all efforts made with the whole team present. She was consoled and left alone to hold the patient's hand. Patient pronounced at 0234 hours. No pulse, no heart sounds, no breathing and no response to painful stimuli.
[2019-05-31] MEDS ORDERED: Vancomycin Trough Check NOTE FOLLOW UP ONE (09:30)
--- NOTE | 2019-06-02 15:44 | DS ---
DISCHARGE/ SUMMARY ADMISSION DATE: 05/06/2019 DISCHARGE DATE:05/31/2019 REASON FOR ADMISSION:4 days of productive cough, chills, dyspnea HOSPITAL COURSE: 59M with known medical history of etoh/tobacco abuse, COPD, lung cancer s/p right upper lobectomy, s/p fall from a significant height resulting in liver laceration, fractures of long bones in 11/2016. He presents on 05/05 with 4 days of productive cough, chills, dyspnea and was found to have a LLL PNA. He was septic so was pancultured, started on antibiotics and admitted to ICU. He required high flow nasal cannula 100%/30L. On 05/07 he started experiencing etoh withdrawal, requiring WAM, precedex, geodon. Later that day, GI was consulted for GI bleed, started PPI and octreotide drip. 05/08 he was intubated for increased work of breathing and progressive hypoxia. His hospital course was complicated by agitated delirium d/t polysubstance withdrawal. Extubated on 05/14, reintubated on 05/18 for respiratory failure, trach on 05/24. He was found to have left pleural effusion which was drained, required insertion of chest tube, and ultimately found to have a left lower lobe abscess. 05/25, noted to have subjective complaints of LUE weakness, and inability to move BLE. Micah renae called, neuro consulted. Physical symptoms resolved and CTH was negative for stroke. 05/29, noted to have a large amount of bleeding from trach site, he was visualized to be grabbing onto vent tubing and likely his trach earlier in the day. ENT was called and packed the site. Later that night, he was difficult to oxygenate, requiring bagging by RT multiple times. He started to bleed again from trach site. He became hypotensive, tachycardic, O2% 80's. Around 0200 on 05/30, patient coded and that lasted 30 mins. Family was contacted and agreed to stop CPR. TOD 0234 on 05/30. DISPOSITION:
== END 2019-05-31 04:19 | disposition expired | DRG 4 ==
LOC: ED 10:18 → ICU 12:08
PROVIDERS: ADMIT Internal Medicine Critical Care Medicine; ATTEND Family Medicine
PROC: 05HN33Z Insertion of Infusion Device into Left Internal Jugular Vein, Percutaneous Approach (ICD-10-PCS; 2019-05-10)
PROC: B544ZZA Ultrasonography of Left Jugular Veins, Guidance (ICD-10-PCS; 2019-05-10)
PROC: 5A1955Z Respiratory Ventilation, Greater than 96 Consecutive Hours (ICD-10-PCS; 2019-05-11)
PROC: 0B9M8ZZ Drainage of Bilateral Lungs, Via Natural or Artificial Opening Endoscopic (ICD-10-PCS; 2019-05-11)
PROC: 0W9B3ZZ Drainage of Left Pleural Cavity, Percutaneous Approach (ICD-10-PCS; 2019-05-14)
PROC: 4A00X4Z Measurement of Central Nervous Electrical Activity, External Approach (ICD-10-PCS; 2019-05-14)
PROC: 0BH17EZ Insertion of Endotracheal Airway into Trachea, Via Natural or Artificial Opening (ICD-10-PCS; 2019-05-16)
PROC: 5A09357 Assistance with Respiratory Ventilation, Less than 24 Consecutive Hours, Continuous Positive Airway Pressure (ICD-10-PCS; 2019-05-16)
PROC: 30233N1 Transfusion of Nonautologous Red Blood Cells into Peripheral Vein, Percutaneous Approach (ICD-10-PCS; 2019-05-19)
PROC: 0W9B30Z Drainage of Left Pleural Cavity with Drainage Device, Percutaneous Approach (ICD-10-PCS; 2019-05-19)
PROC: 0DH67UZ Insertion of Feeding Device into Stomach, Via Natural or Artificial Opening (ICD-10-PCS; 2019-05-25)
PROC: 0B110F4 Bypass Trachea to Cutaneous with Tracheostomy Device, Open Approach (ICD-10-PCS; principal; 2019-05-25 09:30)
DX: A41.9 Sepsis, unspecified organism (principal); J96.01 Acute respiratory failure with hypoxia; E43 Unspecified severe protein-calorie malnutrition; J85.2 Abscess of lung without pneumonia; R65.21 Severe sepsis with septic shock; G93.41 Metabolic encephalopathy; J69.0 Pneumonitis due to inhalation of food and vomit; J91.8 Pleural effusion in other conditions classified elsewhere; C34.11 Malignant neoplasm of upper lobe, right bronchus or lung; N17.9 Acute kidney failure, unspecified; K92.1 Melena; F05 Delirium due to known physiological condition; E87.0 Hyperosmolality and hypernatremia; F10.239 Alcohol dependence with withdrawal, unspecified; D62 Acute posthemorrhagic anemia; J44.9 Chronic obstructive pulmonary disease, unspecified; I47.1 Supraventricular tachycardia; E72.20 Disorder of urea cycle metabolism, unspecified; E88.09 Other disorders of plasma-protein metabolism, not elsewhere classified; D53.9 Nutritional anemia, unspecified; K70.31 Alcoholic cirrhosis of liver with ascites; E87.8 Other disorders of electrolyte and fluid balance, not elsewhere classified; D69.6 Thrombocytopenia, unspecified; F17.210 Nicotine dependence, cigarettes, uncomplicated; K70.30 Alcoholic cirrhosis of liver without ascites; L89.212 Pressure ulcer of right hip, stage 2; B19.20 Unspecified viral hepatitis C without hepatic coma; G89.29 Other chronic pain; I10 Essential (primary) hypertension; E86.0 Dehydration; Z88.8 Allergy status to other drugs, medicaments and biological substances; Z90.2 Acquired absence of lung [part of]; Z68.23 Body mass index [BMI] 23.0-23.9, adult
CPT/HCPCS: 31624; 36415; 36600; 70450; 70496; 70498; 71045; 71250; 71260; 71275; 74018; 74176; 74177; 76604; 76705; 80048; 80053; 80076; 80202; 81002; 81003; 81015; 82140; 82272; 82330; 82550; 82553; 82607; 82746; 82803; 82945; 83605; 83615; 83690; 83735; 83880; 83930; 83935; 84100; 84134; 84145; 84157; 84300; 84443; 84484; 85014; 85018; 85025; 85027; 85610; 85730; 86140; 86850; 86900; 86901; 86922; 87040; 87070; 87077; 87086; 87205; 87641; 89051; 93005; 93306; 93970; 94002; 94003; 94640; 94660; 94667; 94668; 95819; 96365; 96375; 99285; A9270-GY; J0171; J0330; J0360; J0456; J0461; J0692; J0696; J1630; J1644; J1650; J1885; J1940; J2060; J2250; J2270; J2354; J2543; J2704; J2765; J2930; J3010; J3370; J3411; J3475; J3480; J3486; J3490; P9040; P9047; Q9967